=== PATIENT | female | born 1950 | race Caucasian/White ===

== ENCOUNTER 2019-03-03 12:46 | Inpatient (IN) | payer MEDICARE, SELFPAY ==
[2019-03-03] VITALS (11 sets, daily range): BP systolic 125–206; BP diastolic 59–82; PULSE 60–80; RESP 15–18; TEMP 36.5–37.4; O2SAT 96–100; BMI 31.0; BMI 30.4
--- NOTE | 2019-03-03 13:16 | CT_ITS ---
STUDY: CT BRAIN WITHOUT CONTRAST REASON FOR EXAM: Female, 69 years old. Dizziness, headache, nausea/vomiting today. Hx hypertension, diabetes.. RADIATION DOSAGE (If Supplied By Facility): CTDIvol = ( 44.99 ) mGy, DLP = ( 779.24 ) mGycm TECHNIQUE: Transaxial CT imaging of the brain was performed without administration of intravenous contrast material. Individualized dose optimization techniques were used for this CT. COMPARISON: No relevant priors. FINDINGS: Normal size ventricles and extra-axial spaces for the patient's age. Normal white matter tracts of the cerebral hemispheres. Normal basal ganglia and thalami. Normal brainstem. Normal cerebellum. There is no intracranial hemorrhage. There are no findings of an acute ischemic infarction. Normal visualized paranasal sinuses. CT/Brain/Head without Contrast IMPRESSION: Normal unenhanced CT scan of the brain. Electronically Signed: Alva Ramos MD at 14:00 EDT Tel , Service support ,
--- NOTE | 2019-03-03 13:16 | EKG12_ITS ---
Test Reason : DIZZINESS Blood Pressure : / mmHG Vent. Rate : 060 BPM Atrial Rate : 060 BPM P-R Int : 172 ms QRS Dur : 080 ms QT Int : 434 ms P-R-T Axes : 037 -12 105 degrees QTc Int : 434 ms Normal sinus rhythm Left ventricular hypertrophy with repolarization abnormality Abnormal ECG Confirmed by RODNEY IRVIN, HI ([id number]), restaurant expeditor DELORES ARELLANO ([id number]) on 03/04/2019 9:08:28 AM Referred By: MICHA/MELVIN Confirmed By:HI STEVENS MD
--- NOTE | 2019-03-03 13:18 | ED.VIS.GEN ---
History of Present Illness <Chioma Sagastume - Last Filed: 03/03/19 16:34> Informant: Patient Onset: Today Context: Sudden Onset Timing: Waxes and wanes Current Severity: Mild Maximum Severity: Moderate Worsened by: Movement of head Relieved by: Remaining still Associated Symptoms: Nausea and vomiting Narrative: Angelica is a 69-year-old female with chronic headaches over the past year since her . They seem to come when she is under increased stress. She was visiting her brother yesterday at [facility] who is on life support. She developed a chronic headache last evening. She woke up this morning with vertigo. Her symptoms are exacerbated by moving her head especially to the left. She does complain of increased sinus congestion and drainage lately. She denies fever chills or chest pain or shortness of breath. She denies paresthesia or weakness or neck stiffness. She does have a history of bilateral cerumen impactions and she saw learning support resource room teacher but he was unable to remove the wax and she was instructed to put peroxide in her ears which she did not follow-up with. She denies ear pain. Prior similar symptoms: No - Headache yes, vertigo no Recent Illness/Hospitalization: No <Teresa Tejada - Last Filed: 03/03/19 17:36> Chief Complaint: Dizziness Past Medical History <Chioma Sagastume - Last Filed: 03/03/19 16:34> Prior records reviewed: Yes Past Medical History: - - Hypertension, hyperlipidemia, diabetes, chronic arthritis, chronic headaches, allergic rhinitis and chronic sinusitis per patient exam Surgical History: hysterectomy Lives: Alone Smoking Status: Never smoker Alcohol: None Drugs: None <Teresa Tejada - Last Filed: 03/03/19 17:36> - Allergies and Home Meds Allergies/Adverse Reactions: Allergies furosemide [From Lasix] Allergy (Verified 03/03/19 12:47) Hives Sulfa (Sulfonamide Antibiotics) Allergy (Verified 03/03/19 12:47) Hives Review of Systems All systems negative except as indicated General: Denies: Chills, Fever Eyes: Denies: Visual changes - bilaterally, Blurred Vision - bilaterally ENT: Reports: - - Sinus congestionBilateral cerumen impactions. Denies: Bilateral ear pain, Sore throat Cardiovascular: Denies: Chest pain, Palpitations, Heart racing Respiratory: Denies: Dyspnea, Cough, Sputum Gastrointestinal: Reports: Nausea, Vomiting, - - With vertigo episodes. Denies: Abdominal pain Genitourinary: Denies: Dysuria, Hematuria, Frequency Musculoskeletal: Reports: Back pain - Chronic back and hip pain from arthritis. Denies: Myalgias, Arthralgias, Neck pain Skin: Denies: Rash Neurological: Reports: Headache. Denies: Weakness, Parasthesia <RubiodaniloTeresa - Last Filed: 03/03/19 17:36> Physical Exam Vital Signs/Narrative: Vital Signs Temp Pulse Resp BP Pulse Ox 03/03/19 16:20 61 18 125/79 H 03/03/19 15:11 63 15 137/75 H 97 03/03/19 13:00 64 18 153/73 H 100 03/03/19 12:48 99.4 F H 67 15 206/82 H 97 <Chioma Sagastume - Last Filed: 03/03/19 16:34> Vital Signs/Narrative: Vital Signs Temp Pulse Resp BP Pulse Ox 03/03/19 13:00 64 18 153/73 H 100 03/03/19 12:48 99.4 F H 67 15 206/82 H 97 Inital Vital Signs reviewed: Yes General: Well nourished, Well developed Head: Normocephalic, Atraumatic Eyes: Perrl, EOMI. Negative for: Pale conjunctiva ENT: Moist mucous membranes, No rhinorrhea, Nasal congestion, - - Bilateral cerumen impactions obscuring TMs. Negative for: Sinus tenderness Neck: Supple, Nontender, No lymphadenopathy Cardiovascular: Regular rate, Regular rhythm, No murmurs. Negative for: Tachycardia Respiratory: No distress, CTA bilaterally, Chest nontender Abdomen: Soft, Nontender, Nondistended Back: Nontender, Normal Inspection Extremities: Nontender, No edema Skin: Normal color, No rash Neurological: Alert, Oriented x3, Cranial nerves II-XII grossly intact, - - Moderate Hallpike maneuver at the bedside was positive for reproduction of symptoms when she turns her head to the left twice on exam Psychological: Normal Mood, Tearful <TerrellTeresa - Last Filed: 03/03/19 17:36> Diagnostic/Tx/Re-eval - Medical Decision Making I independently evaluated the patient. She presents with vertigo symptoms which started this morning. She states it is worse when she stands or turns her head. She also complains of headache, nausea, vomiting. She denies other complaints. CT head was unremarkable. When laying still patient states her symptoms are improved. When she tries to stand or walk she has significant vertigo. On reevaluation, she does not feel that she can go home. Discussed with the hospitalist for observation. <Chioma Sagastume - Last Filed: 03/03/19 16:34> CT head noncontrast showed no acute process per radiology - EKG Initial EKG Interpretation: Sinus Rhythm - Normal sinus rhythm Ventricular rate 60 OH interval 172 QRS duration 80 QT/QTc 434/434 No acute STEMI or ectopy - Medical Decision Making She was treated with IV fluids, meclizine and Zofran with improvement of her symptoms. Laboratory tests reveal mild dehydration. She states she was told 3 months ago that she was mildly dehydrated that she needs to drink more fluids. She will be prescribed meclizine and Zofran for home and was instructed to increase fluids. She plans to call her PCP tomorrow. She remained neurologically intact, hemodynamically stable and nontoxic in appearance. Plan was discharged home in stable condition. She had another episode of vertigo and was unable to sit up in the bed. It was decided that since she lives alone and she continues to have symptoms she should be observed overnight. She was given Valium for intractable vertigo and admitted. <Teresa Tejada - Last Filed: 03/03/19 17:36> ED Disposition <Chioma Sagastume - Last Filed: 03/03/19 16:34> <Teresa Tejada - Last Filed: 03/03/19 17:36> - Plan for ED Patient: Disposition: Home or Assisted Living
[2019-03-03 13:26] LABS: Basophil# 0.03 X10^3/uL; Basophil% 0.3 % (0-1); Eosinophils% 2.3 % (0-5); Hematocrit 39.6 % (37-47); Hemoglobin 13.3 g/dL (12.0-15.0); Lymphocyte % 11.5 % (19-41); Mean Corp Hgb Conc 33.6 g/dL (32-36); Mean Corpuscular Hgb 29.5 pg (27.0-32.0); Mean Corpuscular Volume 87.8 fL (81-99); Mean Platelet Vol. 9.6 fl (6.2-12.0); Monocyte# 0.46 X10^3/uL; Monocyte% 5.3 % (0-10); NRBC Flagged by Analyzer 0 % (0-5); Neutrophil # 6.95 X10^3/uL (2.7-7.7); Neutrophil % 80.3 % (47-70); Platelet Count 173 K/mm3 (150-450); RBC Distribution Width CV 13.2 % (11.6-14.6); RBC Distribution Width SD 42.5 fl (35.1-43.9); Red Blood Count 4.51 M/mm3 (4.2-5.4); White Blood Count 8.7 K/mm3 (4.4-11.0)
[2019-03-03] MEDS: 0.9% Normal Saline 1,000 ML 1000 ML IV (13:27)
[2019-03-03] MEDS: Ondansetron 4 MG/2 ML Vial IV (13:28)
[2019-03-03] MEDS: Acetaminophen 500 MG Tablet 1000 MG PO (13:30)
[2019-03-03] MEDS: Meclizine HCl 25 MG Tablet PO ×2 (13:30→19:53)
[2019-03-03 13:37] LABS: Anion Gap 6 (5-15); BUN 25 mg/dL (7-18); BUN/Creat Ratio 22.1 RATIO (10-20); Calcium,Total 9.4 mg/dL (8.5-10.1); Chloride 105 mmol/L (98-107); Creatinine, Serum 1.13 mg/dL (0.55-1.02); EST Glomerular Filtration Rate 51 mL/min (>60); Est Glom Filt Rate - Afr Amer 62 mL/min (>60); Estimated Creatinine Clearance 35.96 ml/min; Glucose 185 mg/dL (74-106); Potassium 3.8 mmol/L (3.5-5.1); Sodium Level 138 mmol/L (136-145)
[2019-03-03] MEDS: diazePAM 5 MG Tablet 2.5 MG PO (16:26)
--- NOTE | 2019-03-03 17:14 | HP.PCM_ITS ---
Problem List (1) Vertigo Status: Acute (2) Diabetes Status: Chronic Qualifiers: Diabetes mellitus type: type 2 (3) HTN (hypertension) Status: Chronic (4) Osteoarthritis Status: Chronic (5) Cerumen impaction Status: Chronic Qualifiers: Laterality: bilateral Qualified Code(s): H61.23 - Impacted cerumen, bilateral History of Present Illness Date of Admission: 03/03/19 Chief Complaint: vertigo The patient is a 69 year old F with pmhx of HTN, Dmt2, chronic BL cerumen impaction, osteoarthritis, who presents to the ER with c/o vertigo. She felt normal yesterday, but today woke up feeling dizzy. Laying in bed she had dizziness. Sitting up and attempting to walk made it worse. She had relief if she turned her head to the side. She became nauseous and vomited twice this AM. Since being in the ER her symptoms have somewhat improved and she has had no further vomiting. She had a negative CT of the brain. She still feels very dizzy lying in bed. She denies focal weakness, slurred speech, facial droop, or numbness tingling. She had a mild headache on the top of her head that has passed with tylenol. She is too dizzy to walk, lives by herself, and does not feel comfortable going home. She will be kept overnight for observation. Also of note, she was seen by Dr. Sergey Austin 4 months ago for chronic BL cerumen impaction. He was unable to remove them and told her to use daily peroxide to so ften the impactions. She did this, but then never followed up with Dr. Austin. The ER providers have noted that she remains impacted BL on exam. [] Past Medical History Past Medical History (Chronic Problems): Chronic Problems Diabetes (Chronic) HTN (hypertension) (Chronic) Osteoarthritis (Chronic) Cerumen impaction (Chronic) Allergies furosemide [From Lasix] Allergy (Verified 03/03/19 12:47) Hives Sulfa (Sulfonamide Antibiotics) Allergy (Verified 03/03/19 12:47) Hives Home Medications: Ambulatory Orders Medication Instructions Recorded Cholecalciferol (Vitamin D3) 1 tab PO QWEEK 03/03/19 [D3-50] Glimepiride 1 tab PO DAILY 03/03/19 Indapamide 1.25 mg PO DAILY 03/03/19 Meclizine HCl 12.5 mg PO TID PRN PRN 4 Days #12 03/03/19 tab Metoprolol Tartrate 50 mg PO BID 03/03/19 Naproxen 500 mg PO BID PRN 03/03/19 Ondansetron [Zofran Odt] 4 mg PO Q8H PRN PRN #6 tab 03/03/19 traMADol [Ultram (G)] 50 mg PO DAILY 03/03/19 Surgical History: hysterectomy - partial Psychiatric History: No pertinent psych hx SWIMMING PROFESSOR History: No pertinent SWIMMING PROFESSOR history Lives: Alone Smoking Status: Never smoker Alcohol: None Drugs: None Review of Systems Constitutional: Denies: Chills, Fever, Weight Change HEENT: Reports: Head Aches. Denies: Difficulty Hearing, Hard of Hearing, Sinus Congestion, Sinus Drainage, Visual Changes Cardiovascular: Denies: Chest Pain, Chest Tightness, Heaviness, Light Headedness, Palpitations, Syncope Respiratory: Denies: Cough, Shortness of Breath, Shortness of breath at rest, Shortness of breath upon exertion, Sputum production, Wheezing Gastrointestinal: Reports: Nausea, Vomiting. Denies: Abdominal Pain, Diarrhea Genitourinary: Denies: Dysuria, Retention, Urgency Musculoskeletal: Denies: Joint Pain, Joint Tenderness, Muscle pain Skin: Denies: Lesions, Rash, Wounds Neurological: Reports: Balance problems, Headaches. Denies: Blurred vision, Double vision, Change in Speech, Slurred speech, Confusion, Difficulty swallowing, Focal weakness, Numbness, Tingling Psychiatric: Denies: Anxiety, Depression, Homicidal Ideations, Suicidal Ideations Hematologic/ Lymphatic: Denies: Easy Bruising, Easy Bleeding VTE Information - Inpt Only VTE Present on Admission: No VTE Mechan Device Prophylaxis: None VTE Pharm Prophylaxis ordered?: Yes Patient Problems: Active and Suspected Problems Vertigo (Acute) - Physical Exam General: Alert, Oriented x3, Cooperative HEENT: Atraumatic, PERRLA, EOMI, Normocephalic Neck: Supple, No JVD, Negative Carotid Bruits Lungs: Clear to auscultation, Normal air movement Cardiovascular: Regular rate, No murmurs Abdomen: Bowel Sounds Present, Soft, Non Tender Extremities: No edema, Capillary Refill Less than 3 Seconds Skin: No rashes, No breakdown Musculoskeletal: No Tenderness to Palpation of Joints or Extremities Neurological: Cranial nerves II-XII grossly intact Psych/Mental Status: Normal Affect, Appropriate Vital Signs Temp Pulse Resp BP Pulse Ox 99.4 F H 75 18 158/67 H 97 03/03/19 12:48 03/03/19 17:09 03/03/19 17:09 03/03/19 17:09 03/03/19 17:09 Oxygen Delivery Method Room Air Weight: 164 lb 7.437 oz Body Mass Index (BMI) 31.0 Intake and Output for Last 24 Hours 03/01/19 03/02/19 03/03/19 23:59 23:59 23:59 Intake Total 1000 / 1000 Balance 1000 / 1000 Laboratory Tests Past 24 Hrs 03/03/19 03/03/19 12:55 12:55 WBC 8.7 RBC 4.51 Hgb 13.3 Hct 39.6 MCV 87.8 MCH 29.5 MCHC 33.6 RDW Std Deviation 42.5 RDW Coeff of Rojelio 13.2 Plt Count 173 MPV 9.6 Immature Gran % (Auto) 0.300 Neut % (Auto) 80.3 H Lymph % (Auto) 11.5 L Coal % (Auto) 5.3 Eos % (Auto) 2.3 Baso % (Auto) 0.3 Absolute Neuts (auto) 7.0 Absolute Lymphs (auto) 1.00 Nucleated RBC % 0 Sodium 138 Potassium 3.8 Chloride 105 Carbon Dioxide 27.0 Anion Gap 6 BUN 25 H Creatinine 1.13 H Estim Creat Clear Calc 35.96 Est GFR (MDRD) Af Amer 62 Est GFR (MDRD) Non-Af 51 L BUN/Creatinine Ratio 22.1 H Glucose 185 H Calcium 9.4 Assessment/Plan All Active Problems Vertigo (Acute) 1. Vertigo - peripheral. Better with turning head to the left. Improved in the ER however she is still unable to walk and does not feel safe at home. CT brain negative. She will be provided with meclizine, IV fluids, and antiemetics and kept overnight for observation. PTOT evals in the AM for vestibular thearpy 2. Cerumen impaction - possibly contributing to above. Consult her ENT Dr. Sergey John. If she feels better tomorrow we will attempt to get her follow up in the office. She has been impacted about 4 months. 3. Dmt2 with hyperglycemia - add SSI. 4. HTN - elevated initially now improved. Continue home meds and monitor. Hold diuretic (likely dehydrated 2/2 N/V). 5. Osteoarthritis - hold NSAID. BUN/Cr somewhat elevated likely dehydrated 2/2 nausea vomiting. DVT ppx: lovenox DC planning: Reassess vertigo in AM. This patient was seen by Alberto Linn PA-C under the supervision of Dr. Isidro.
[2019-03-03] MEDS: 0.9% Normal Saline 1,000 ML 125 ML IV (19:54)
--- NOTE | 2019-03-03 20:45 | PCM.PN.BLA ---
Progress Note Asked to see the patient at the request of Dr. Isidro for vertigo and cerumen impaction 69 yo white female woke up this morning with spinning vertigo. She was laying flat at the time. She turned to her left and this made it worse. She got out of bed, lost bladder control and eventually called the squad. She had a normal CT head here. She denies hearing loss or ringing at any time during the vertiginous episode. She denies vertigo right now. This has never happened before. Past Medical History Past Medical History (Chronic Problems): Chronic Problems Diabetes (Chronic) HTN (hypertension) (Chronic) Osteoarthritis (Chronic) Cerumen impaction (Chronic) Allergies furosemide [From Lasix] Allergy (Verified 03/03/19 12:47) Hives Sulfa (Sulfonamide Antibiotics) Allergy (Verified 03/03/19 12:47) Hives Home Medications: Ambulatory Orders Medication Instructions Recorded Cholecalciferol (Vitamin D3) 1 tab PO QWEEK 03/03/19 [D3-50] Glimepiride 1 tab PO DAILY 03/03/19 Indapamide 1.25 mg PO DAILY 03/03/19 Meclizine HCl 12.5 mg PO TID PRN PRN 4 Days #12 03/03/19 tab Metoprolol Tartrate 50 mg PO BID 03/03/19 Naproxen 500 mg PO BID PRN 03/03/19 Ondansetron [Zofran Odt] 4 mg PO Q8H PRN PRN #6 tab 03/03/19 traMADol [Ultram (G)] 50 mg PO DAILY 03/03/19 Surgical History: hysterectomy - partial Psychiatric History: No pertinent psych hx EXERCISE PHYSIOLOGIST CERTIFIED History: No pertinent EXERCISE PHYSIOLOGIST CERTIFIED history Lives: Alone Smoking Status: Never smoker Alcohol: None Drugs: None Review of Systems Constitutional: Denies: Chills, Fever, Weight Change HEENT: Reports: Head Aches. Denies: Difficulty Hearing, Hard of Hearing, Sinus Congestion, Sinus Drainage, Visual Changes Cardiovascular: Denies: Chest Pain, Chest Tightness, Heaviness, Light Headedness, Palpitations, Syncope Respiratory: Denies: Cough, Shortness of Breath, Shortness of breath at rest, Shortness of breath upon exertion, Sputum production, Wheezing Gastrointestinal: Reports: Nausea, Vomiting. Denies: Abdominal Pain, Diarrhea Genitourinary: Denies: Dysuria, Retention, Urgency Musculoskeletal: Denies: Joint Pain, Joint Tenderness, Muscle pain Skin: Denies: Lesions, Rash, Wounds Neurological: Reports: Balance problems, Headaches. Denies: Blurred vision, Double vision, Change in Speech, Slurred speech, Confusion, Difficulty swallowing, Focal weakness, Numbness, Tingling Psychiatric: Denies: Anxiety, Depression, Homicidal Ideations, Suicidal Ideations Hematologic/ Lymphatic: Denies: Easy Bruising, Easy Bleeding PE: awake alert NAD ears- bilateral cerumen impaction nose- no bleeding, rhinorrhea m/op -dry mucosa. no masses, lesions neck supple no adenopathy No gaze or spontaneous nystagmus Smooth pursuit is normal [place] Hallpike + for rotary, fatigable nystagmus in the left ear dependent position. She was then placed in the Abdelrahman maneuver A:1. Left BPPV 2. Bilateral cerumen impaction P: Keep the head of bed elevated 30-45 degrees for one week. Use debrox for 5 days prior to an office visit where the cerumen will be removed.
[2019-03-03] MEDS: 0.9% NaCl Peripheral Flush Adult/Peds IV (21:22)
[2019-03-03] MEDS: Metoprolol Tartrate 50 MG Tablet PO (21:44)
[2019-03-03] MEDS: Famotidine 20 MG Tablet PO (21:44)
[2019-03-03] MEDS: Insulin Lispro 100 UNIT/ML INSULN.PEN SC (21:48)
[2019-03-03 23:11] LABS: Bedside Glucose 176 mg/dL (70-110)
[2019-03-04] VITALS (14 sets, daily range): BP systolic 145–164; BP diastolic 69–87; PULSE 59–94; RESP 16–18; TEMP 36.5–36.7; O2SAT 92–100
[2019-03-04] MEDS: Meclizine HCl 25 MG Tablet PO ×4 (02:51→20:59)
[2019-03-04] MEDS: 0.9% Normal Saline 1,000 ML 125 ML IV ×3 (02:53→21:01)
[2019-03-04 05:51] LABS: Absolute Lymphocyte Count 1.42 X10^3/uL (0.83-4.51); Absolute Neutrophil Count 3.3 X10^3/uL (2.0-7.7); Basophil# 0.03 X10^3/uL; Basophil% 0.6 % (0-1); Eosinophils% 3.7 % (0-5); Hematocrit 34.8 % (37-47); Hemoglobin 11.6 g/dL (12.0-15.0); Lymphocyte # 1.42 X10^3/ul (4.0); Lymphocyte % 26.1 % (19-41); Mean Corp Hgb Conc 33.3 g/dL (32-36); Mean Corpuscular Hgb 29.6 pg (27.0-32.0); Mean Corpuscular Volume 88.8 fL (81-99); Mean Platelet Vol. 9.7 fl (6.2-12.0); Monocyte# 0.53 X10^3/uL; Monocyte% 9.7 % (0-10); NRBC Flagged by Analyzer 0 % (0-5); Neutrophil # 3.26 X10^3/uL (2.7-7.7); Neutrophil % 59.7 % (47-70); Platelet Count 165 K/mm3 (150-450); RBC Distribution Width CV 13.3 % (11.6-14.6); RBC Distribution Width SD 43.3 fl (35.1-43.9); Red Blood Count 3.92 M/mm3 (4.2-5.4); White Blood Count 5.5 K/mm3 (4.4-11.0)
[2019-03-04 06:02] LABS: Anion Gap 6 (5-15); BUN 21 mg/dL (7-18); Calcium,Total 8.7 mg/dL (8.5-10.1); Chloride 113 mmol/L (98-107); Creatinine, Serum 0.96 mg/dL (0.55-1.02); EST Glomerular Filtration Rate 62 mL/min (>60); Est Glom Filt Rate - Afr Amer 75 mL/min (>60); Estimated Creatinine Clearance 42.32 ml/min; Glucose 88 mg/dL (74-106); Potassium 3.7 mmol/L (3.5-5.1); Sodium Level 144 mmol/L (136-145)
[2019-03-04 07:41] LABS: Bedside Glucose 74 mg/dL (70-110)
[2019-03-04] MEDS: Indapamide 2.5 MG Tablet 1.25 MG PO (08:33)
[2019-03-04] MEDS: Famotidine 20 MG Tablet PO ×2 (10:25→21:06)
[2019-03-04] MEDS: Metoprolol Tartrate 50 MG Tablet PO ×2 (10:25→21:06)
[2019-03-04] MEDS: Enoxaparin 30 MG/0.3 ML Syringe SC (10:27)
[2019-03-04] MEDS: traMADol 50 MG Tablet PO (10:30)
--- NOTE | 2019-03-04 11:26 | PN_ITS ---
Patient Problems: Active and Suspected Problems Vertigo (Acute) Subjective: Patient is a 69-year-old lady presented with acute vertigo worsening with position. Patient also had difficulty ambulating admitted to regular nursing floor with consultation placed to ENT. Seen by Dr. Sergey John who felt patient had BPPV with chronic cerumen impaction Objective: GENERAL: cooperative HEENT: Atraumatic; EYES; Anicteric, Normal Conjunctiva NECK; supple, normal thyroid, RESPIRATORY: Diminished to auscultation CARDIOVASCULAR: Regular S1 S2, GI: soft, non-tender, normoactive bowel sounds, : No Renal angle tenderness; EXTREMITIES: No edema, no clubbing, MUSCULOSKELETAL: No Joint Tenderness; NEURO: Awake; no lateralizing signs. SKIN: No Rash PSYCH; Normal affect Vitals/I&O's: Vital Signs Temp Pulse Resp BP Pulse Ox 97.8 F 70 16 148/70 H 92 03/04/19 08:20 03/04/19 10:25 03/04/19 08:20 03/04/19 10:25 03/04/19 08:20 Oxygen Delivery Method Room Air Weight: 73 kg Body Mass Index (BMI) 30.4 Intake and Output for Last 24 Hours 03/02/19 03/03/19 03/04/19 23:59 23:59 23:59 Intake Total 1300 / 1300 2051.2051. Output Total 700 / 700 800 / 800 Balance 600 / 600 1252.09 / 1252.09 Laboratory Results 03/03/19 12:55: WBC 8.7, RBC 4.51, Hgb 13.3, Hct 39.6, MCV 87.8, MCH 29.5, MCHC 33.6, RDW Std Deviation 42.5, RDW Coeff of Rojelio 13.2, Plt Count 173, MPV 9.6, Immature Gran % (Auto) 0.300, Neut % (Auto) 80.3 H, Lymph % (Auto) 11.5 L, [place] % (Auto) 5.3, Eos % (Auto) 2.3, Baso % (Auto) 0.3, Absolute Neuts (auto) 7.0, Absolute Lymphs (auto) 1.00, Nucleated RBC % 0 03/03/19 12:55: Sodium 138, Potassium 3.8, Chloride 105, Carbon Dioxide 27.0, Anion Gap 6, BUN 25 H, Creatinine 1.13 H, Estim Creat Clear Calc 35.96, Est GFR (MDRD) Af Amer 62, Est GFR (MDRD) Non-Af 51 L, BUN/Creatinine Ratio 22.1 H, Glucose 185 H, Calcium 9.4 03/03/19 21:42: POC Glucose 176 H 03/04/19 05:18: WBC 5.5, RBC 3.92 L, Hgb 11.6 L, Hct 34.8 L, MCV 88.8, MCH 29.6, MCHC 33.3, RDW Std Deviation 43.3, RDW Coeff of Rojelio 13.3, Plt Count 165, MPV 9.7, Immature Gran % (Auto) 0.200, Neut % (Auto) 59.7, Lymph % (Auto) 26.1, [place] % (Auto) 9.7, Eos % (Auto) 3.7, Baso % (Auto) 0.6, Absolute Neuts (auto) 3.3, Absolute Lymphs (auto) 1.42, Nucleated RBC % 0 03/04/19 05:18: Sodium 144, Potassium 3.7, Chloride 113 H, Carbon Dioxide 25.0, Anion Gap 6, BUN 21 H, Creatinine 0.96, Estim Creat Clear Calc 42.32, Est GFR (MDRD) Af Amer 75, Est GFR (MDRD) Non-Af 62, BUN/Creatinine Ratio 22.0 H, Glucose 88, Calcium 8.7 03/04/19 06:19: POC Glucose 74 Current Medications Acetaminophen (Tylenol) 650 mg PO Q6H PRN PRN PRN Reason: Non-cardiac pain (mod-severe) Al Hydroxide/Mg Hydroxide (Mylanta Ii) 15 - 30 ml PO Q4H PRN PRN PRN Reason: INDIGESTION Albuterol Sulfate (Ventolin Aerosols) 2.5 mg INHALATION Q2H PRN PRN PRN Reason: dyspnea, wheezing Dextrose (D50w Syringe) 0 gm IV X1 PRN; Protocol PRN Reason: Hypoglycemia Enoxaparin Sodium (Lovenox) 30 mg SC DAILY@1000 [facility] Last Admin: 03/04/19 10:27 Dose: 30 mg Documented by: Famotidine (Pepcid) 20 mg PO BID [facility] Last Admin: 03/04/19 10:25 Dose: 20 mg Documented by: Glucagon () 1 mg IM .X1 PRN PRN Reason: Hypoglycemia Hydralazine HCl (Apresoline Iv) 10 mg IV Q4H PRN PRN PRN Reason: SBP > 160 Sodium Chloride () 1,000 mls @ 125 mls/hr IV .Q8H [facility] Last Admin: 03/04/19 10:43 Dose: 125 mls/hr Documented by: Indapamide (Lozol) 1.25 mg PO DAILYCM [facility] Last Admin: 03/04/19 08:33 Dose: 1.25 mg Documented by: Insulin Human Lispro (Humalog Kwikpen (Bkc)) 0 unit SC ACHS [facility]; Protocol Last Admin: 03/04/19 06:22 Dose: Not Given Documented by: Magnesium Hydroxide (Milk Of Magnesia) 30 ml PO DAILY PRN PRN Reason: Constipation Meclizine HCl (Antivert) 25 mg PO Q6H [facility] Last Admin: 03/04/19 08:28 Dose: 25 mg Documented by: Melatonin (Melatonin) 3 mg PO QHS PRN PRN PRN Reason: INSOMNIA Metoprolol Tartrate (Lopressor (Beta Tenisha)) 50 mg PO BID [facility] Last Admin: 03/04/19 10:25 Dose: 50 mg Documented by: Nutritional Formula (Lactose Free) (Glucerna Shake) 120 ml PO TIDCM [facility] Last Admin: 03/04/19 08:25 Dose: Not Given Documented by: Ondansetron HCl (Zofran) 4 mg IV Q8H PRN PRN PRN Reason: NAUSEA/VOMITING Sodium Chloride () 10 - 40 ml IV UD PRN PRN Reason: SALINE FLUSH Last Admin: 03/03/19 21:22 Dose: 10 ml Documented by: Tramadol HCl (Ultram) 50 mg PO DAILY [facility] Last Admin: 03/04/19 10:30 Dose: 50 mg Documented by: Medical Necessity - Tobacco Use Smoking Status: Never smoker Assessment/Plan All Active Problems Vertigo (Acute) Patient is a 69-year-old lady presented with acute vertigo worsening with position. Patient also had difficulty ambulating admitted to regular nursing floor with consultation placed to ENT. Seen by Dr. Sergey John who felt patient had BPPV with chronic cerumen impaction 1. Acute vertigo suspected to be secondary to BPPV. ~ Patient is been seen in consultation by ENT Dr. Sergey John's note reviewed. Also requested for PT OT. With the patient still remaining significantly vertiginous MRI of the brain was ordered to rule out posterior circulation CVA 2. Chronic bilateral cerumen impaction patient prescribed Cerebrox for patient to undergo outpatient disimpaction 3. Diabetes mellitus type 2. Patient oral agent placed on hold, placed on diabetic diet and subsequently placed on Accu-Cheks before meals and at bedtime with sliding scale coverage 4. Hypertension blood pressure controlled continue home medications 5. Obesity with BMI of 30.4 weight loss advised 6. Generalized osteoarthritis pain medications as needed 7. DVT prophylaxis enoxaparin Active Medications Acetaminophen (Tylenol) 650 mg PO Q6H PRN PRN PRN Reason: Non-cardiac pain (mod-severe) Al Hydroxide/Mg Hydroxide (Mylanta Ii) 15 - 30 ml PO Q4H PRN PRN PRN Reason: INDIGESTION Albuterol Sulfate (Ventolin Aerosols) 2.5 mg INHALATION Q2H PRN PRN PRN Reason: dyspnea, wheezing Dextrose (D50w Syringe) 0 gm IV X1 PRN; Protocol PRN Reason: Hypoglycemia Enoxaparin Sodium (Lovenox) 30 mg SC DAILY@1000 [facility] Last Admin: 03/04/19 10:27 Dose: 30 mg Documented by: Famotidine (Pepcid) 20 mg PO BID [facility] Last Admin: 03/04/19 10:25 Dose: 20 mg Documented by: Glucagon () 1 mg IM .X1 PRN PRN Reason: Hypoglycemia Hydralazine HCl (Apresoline Iv) 10 mg IV Q4H PRN PRN PRN Reason: SBP > 160 Sodium Chloride () 1,000 mls @ 125 mls/hr IV .Q8H [facility] Last Admin: 03/04/19 10:43 Dose: 125 mls/hr Documented by: Indapamide (Lozol) 1.25 mg PO DAILYCM [facility] Last Admin: 03/04/19 08:33 Dose: 1.25 mg Documented by: Insulin Human Lispro (Humalog Kwikpen (Bkc)) 0 unit SC ACHS [facility]; Protocol Last Admin: 03/04/19 06:22 Dose: Not Given Documented by: Magnesium Hydroxide (Milk Of Magnesia) 30 ml PO DAILY PRN PRN Reason: Constipation Meclizine HCl (Antivert) 25 mg PO Q6H [facility] Last Admin: 03/04/19 08:28 Dose: 25 mg Documented by: Melatonin (Melatonin) 3 mg PO QHS PRN PRN PRN Reason: INSOMNIA Metoprolol Tartrate (Lopressor (Beta Tenisha)) 50 mg PO BID [facility] Last Admin: 03/04/19 10:25 Dose: 50 mg Documented by: Nutritional Formula (Lactose Free) (Glucerna Shake) 120 ml PO TIDCM [facility] Last Admin: 03/04/19 08:25 Dose: Not Given Documented by: Ondansetron HCl (Zofran) 4 mg IV Q8H PRN PRN PRN Reason: NAUSEA/VOMITING Sodium Chloride () 10 - 40 ml IV UD PRN PRN Reason: SALINE FLUSH Last Admin: 03/03/19 21:22 Dose: 10 ml Documented by: Tramadol HCl (Ultram) 50 mg PO DAILY [facility] Last Admin: 03/04/19 10:30 Dose: 50 mg Documented by: Clinical Impression(s) from Imaging Studies Brain CT 03/03/19 13:16 IMPRESSION: Normal unenhanced CT scan of the brain. Electronically Signed: Alva Ramos MD at 14:00 EDT Tel , Service support , Code Visit OBSV E&M: 16678 Subsequent observation care L3
--- NOTE | 2019-03-04 11:34 | MRI_ITS ---
STUDY: MRI BRAIN WITH AND WITHOUT CONTRAST REASON FOR EXAM: Female, 69 years old. Vertigo TECHNIQUE: Standardized multiplanar fat and water weighted pulse sequences were obtained. IV Dotarem 14 was administered for the contrast portion of the examination. COMPARISON: [address] head FINDINGS: Normal size of the ventricles and extra-axial spaces for the patient's age. Normal white matter tracts of the supratentorial brain. Normal bilateral basal ganglia. Normal thalami. There is no extra-axial fluid accumulation. There are minor white matter age related changes. Normal flow voids within the major intracranial circulation suggesting patency by spin echo criteria. Normal venous enhancement. There is no enhancing intra-axial or extra-axial abnormality. Normal sella turcica, pituitary gland, infundibular stalk, optic chiasm and hypothalamus. Normal tectal plate and pineal gland. Normal midbrain, gaby and medulla. Normal cerebellum. Normal basal cisterns. Normal bilateral temporal bones. Normal bilateral internal auditory canals. No demonstrated orbital abnormality, within the constraints of a routine brain study. Normal visualized paranasal sinuses. Normal calvarium and skull base. Normal visualized soft tissue structures. Normal visualized upper cervical spine. MRI/Brain W/WO Contrast IMPRESSION: Normal unenhanced and enhanced MRI of the brain. Electronically Signed: Melanie Hollis, at 15:55 EDT Tel , Service support ,
[2019-03-04] MEDS: Glucerna Shake 120 ML LIQUID PO ×2 (13:27→16:24)
[2019-03-04 13:41] LABS: Bedside Glucose 101 mg/dL (70-110)
[2019-03-04] MEDS: 0.9% NaCl Peripheral Flush Adult/Peds IV ×2 (14:04→16:34)
[2019-03-04] MEDS: LORazepam 2 MG/ML Syringe 1 MG IV (14:05)
--- NOTE | 2019-03-04 14:05 | CASEMGMT ---
RN CM Assessment Introduced role of RN CM to patient.? Patient is alert, oriented and able?to participate in RN CM Assessment. ?Care providers, pharmacy, and demographics verified. Presentation: H/o Chronic SHER x1 yr after . SHER's w/increased stress. C/o SHER after visiting brother at [facility] who is on life support. +Vertigo. Admit Dx: Vertigo Re-Admit: No Barriers/Issues: Patient has friends that work, really has no other support to assist with transportation needs or other care needs. States her was a Decan and last April 2018. has attended support group off [address] and it is going to start up again on Monday and states they helped her in the past. Sometimes attends her husbands muslim or a different Baptism Islam. States this episode she called her neighbor to assist d/t the dizziness but does not like to ask him for help d/t his passing 1.5years ago and he was the one that took care of his so she does not want her needs to bring back memories for him. [facility] has resources on transportation services through [employer] and this CM discussed [facility] Transport, [place], and inquired about applying to [facility] (patient states that she does not qualify). 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 Denies medication coverage but states that her maintenance medications do not cost very much. has Medication coupon cards at home if ever needed and this CM also discussed going on [employer] web site for coupons if ever needed. Denies issues with Medications at this time and states it is cheaper for her paying out of pocket than getting MCR D. PCP: Miladis Foote Specialists: ENT- Sergey Austin, has an up coming appt with Ophth that she has not seen yet Dr Devlin for her Cataracts. Preferred Pharmacy: [facility] Insurance: [facility] A&B Rx Benefit:?No ?LNOK: Brother Randell Chao- lives in [place] LW/HPOA: Yes both, aware not on file with [facility], HPOA- Brother Mateo Chao whom lives in [place] but is currently on life support at [facility]. Living Arrangements:? Lives alone in a SS home with 3 steps to enter from the front and 2 steps to enter from the garage. ADL?s: Independent with ambulation and ADLs Transportation: Patient drives, has transportation resources and denies additional resources. Plans to take Taxi upon DC DME: States has a walker that was her husbands that she can use if needed. Denies any other DME. HHC: None SNF: None Goal: Home and states that PT discussed Therapy for her Vertigo and would be Outpatient with Dr Austin. Denies any other needs, questions, issues or concerns with DC planning at this time. Aware CM remains available for any emerging needs. DC PLAN: Home with no additional needs identified at this time. Donovan Hu RNCM
--- NOTE | 2019-03-04 15:51 | CHAPLAIN ---
Type of Pastoral Visit _x__ Initial Visit ___ Follow-up Visit ___ On-call Visit ___ General Patient Visit ___ Spiritual Assessment ___ Family Conference ___ Bereavement ___ Rapid Response ___ Code Blue ___ Other (describe below) Pastoral Care Referral From _x__ Patient ___ Family ___ Nurse ___ Physician ___ Probation Manager ___ Radiotelegraphist ___ Other (describe below) Sacrament/Intervention _x__ Active listening ___ Anointing ___ Adventism ___ Bereavement ___ Communion _x__ Brooke exploration ___ _x__ Life review _x__ Prayer ___ Reconciliation ___ Sacrament of Sick _x__ Supportive presence ___ Wedding ___ Other (describe below) Pastoral Comments patient is very talkative and describes her anxiety about having an MRI to be done soon; this post exchange manager listens and offers supportive presence until RN comes to inform that MRI team is ready for pt;
[2019-03-04 17:10] LABS: Bedside Glucose 62 mg/dL (70-110)
[2019-03-04 17:10] LABS: Bedside Glucose 103 mg/dL (70-110)
[2019-03-04] MEDS: Insulin Lispro 100 UNIT/ML INSULN.PEN SC (21:07)
[2019-03-04 22:51] LABS: Bedside Glucose 216 mg/dL (70-110)
[2019-03-05] VITALS (18 sets, daily range): BP systolic 157–220; BP diastolic 67–105; PULSE 67–77; RESP 16–18; TEMP 36.4–37.1; O2SAT 91–96
[2019-03-05] MEDS: Meclizine HCl 25 MG Tablet PO ×4 (02:32→20:54)
[2019-03-05] MEDS: 0.9% Normal Saline 1,000 ML 125 ML IV ×3 (05:00→20:54)
[2019-03-05 06:55] LABS: Bedside Glucose 86 mg/dL (70-110)
--- NOTE | 2019-03-05 07:24 | PN_ITS ---
Patient Problems: Active and Suspected Problems Vertigo (Acute) Subjective: CC follow-up of vertigo Patient seen still complains of inability to ambulate. She is tearful this a.m. Consult was placed to neurology. Also did discuss with patient about possibility of being discharged to a custodial facility versus inpatient rehab to continue with her recuperation. Objective: GENERAL: cooperative HEENT: Atraumatic; EYES; Anicteric, Normal Conjunctiva NECK; supple, normal thyroid, RESPIRATORY: Diminished to auscultation CARDIOVASCULAR: Regular S1 S2, GI: soft, non-tender, normoactive bowel sounds, : No Renal angle tenderness; EXTREMITIES: No edema, no clubbing, MUSCULOSKELETAL: No Joint Tenderness; NEURO: Awake; no lateralizing signs. SKIN: No Rash PSYCH; Normal affect Vitals/I&O's: Vital Signs Temp Pulse Resp BP Pulse Ox 97.5 F L 69 16 157/86 H 96 03/05/19 02:33 03/05/19 04:42 03/05/19 02:33 03/05/19 02:33 03/05/19 02:33 Oxygen Delivery Method Room Air Weight: 73 kg Body Mass Index (BMI) 30.4 Intake and Output for Last 24 Hours 03/03/19 03/04/19 03/05/19 23:59 23:59 23:59 Intake Total 1300 / 1300 3909.17 / 3909.17 997.92 / 997.92 Output Total 700 / 700 1700 / 1700 2700 / 2700 Balance 600 / 600 2209.17 / 2209.17 -1702.08 / -1702.08 Laboratory Results 03/04/19 06:19: POC Glucose 74 03/04/19 13:30: POC Glucose 101 03/04/19 16:27: POC Glucose 62 L 03/04/19 17:06: POC Glucose 103 03/04/19 21:05: POC Glucose 216 H 03/05/19 06:44: POC Glucose 86 Current Medications Acetaminophen (Tylenol) 650 mg PO Q6H PRN PRN PRN Reason: Non-cardiac pain (mod-severe) Al Hydroxide/Mg Hydroxide (Mylanta Ii) 15 - 30 ml PO Q4H PRN PRN PRN Reason: INDIGESTION Albuterol Sulfate (Ventolin Aerosols) 2.5 mg INHALATION Q2H PRN PRN PRN Reason: dyspnea, wheezing Dextrose (D50w Syringe) 0 gm IV X1 PRN; Protocol PRN Reason: Hypoglycemia Enoxaparin Sodium (Lovenox) 30 mg SC DAILY@1000 [facility] Last Admin: 03/04/19 10:27 Dose: 30 mg Documented by: Famotidine (Pepcid) 20 mg PO BID [facility] Last Admin: 03/04/19 21:06 Dose: 20 mg Documented by: Glucagon () 1 mg IM .X1 PRN PRN Reason: Hypoglycemia Hydralazine HCl (Apresoline Iv) 10 mg IV Q4H PRN PRN PRN Reason: SBP > 160 Sodium Chloride () 1,000 mls @ 125 mls/hr IV .Q8H [facility] Last Admin: 03/05/19 05:00 Dose: 125 mls/hr Documented by: Indapamide (Lozol) 1.25 mg PO DAILYCM [facility] Last Admin: 03/04/19 08:33 Dose: 1.25 mg Documented by: Insulin Human Lispro (Humalog Kwelvinpen (Bkc)) 0 unit SC ACHS [facility]; Protocol Last Admin: 03/05/19 06:47 Dose: Not Given Documented by: Magnesium Hydroxide (Milk Of Magnesia) 30 ml PO DAILY PRN PRN Reason: Constipation Meclizine HCl (Antivert) 25 mg PO Q6H [facility] Last Admin: 03/05/19 02:32 Dose: 25 mg Documented by: Melatonin (Melatonin) 3 mg PO QHS PRN PRN PRN Reason: INSOMNIA Metoprolol Tartrate (Lopressor (Beta Tenisha)) 50 mg PO BID [facility] Last Admin: 03/04/19 21:06 Dose: 50 mg Documented by: Nutritional Formula (Lactose Free) (Glucerna Shake) 120 ml PO TIDCM [facility] Last Admin: 03/04/19 16:24 Dose: 120 ml Documented by: Ondansetron HCl (Zofran) 4 mg IV Q8H PRN PRN PRN Reason: NAUSEA/VOMITING Sodium Chloride () 10 - 40 ml IV UD PRN PRN Reason: SALINE FLUSH Last Admin: 03/04/19 16:34 Dose: 10 ml Documented by: Tramadol HCl (Ultram) 50 mg PO DAILY [facility] Last Admin: 03/04/19 10:30 Dose: 50 mg Documented by: Medical Necessity - Tobacco Use Smoking Status: Never smoker Assessment/Plan All Active Problems Vertigo (Acute) Patient is a 69-year-old lady presented with acute vertigo worsening with position. Patient also had difficulty ambulating admitted to regular nursing floor with consultation placed to ENT. Seen by Dr. Sergey John who felt patient had BPPV with chronic cerumen impaction 1. Acute vertigo suspected to be secondary to BPPV. ~ Patient is been seen in consultation by ENT Dr. Sergey John's note reviewed. Also requested for PT OT. With the patient still remaining significantly vertiginous MRI of the brain was ordered to rule out posterior circulation CVA ?03/05/2019: Patient still remains significantly symptomatic. Discussed with patient about being discharged to an inpatient rehab facility or custodial facility for rehab. Consultation was also placed to neurology MRI obtained the day prior was unremarkable 2. Chronic bilateral cerumen impaction patient prescribed Debrox for patient to undergo outpatient disimpaction 3. Diabetes mellitus type 2. Patient oral agent placed on hold, placed on diabetic diet and subsequently placed on Accu-Cheks before meals and at bedtime with sliding scale coverage 4. Hypertension blood pressure controlled continue home medications 5. Obesity with BMI of 30.4 weight loss advised 6. Generalized osteoarthritis pain medications as needed 7. DVT prophylaxis enoxaparin Code Visit Inpatient E&M: 53118 Subs Hosp L2
[2019-03-05] MEDS: Enoxaparin 30 MG/0.3 ML Syringe SC (08:43)
[2019-03-05] MEDS: Metoprolol Tartrate 50 MG Tablet PO ×2 (08:47→21:00)
[2019-03-05] MEDS: Glucerna Shake 120 ML LIQUID PO ×2 (08:47→12:41)
[2019-03-05] MEDS: Indapamide 2.5 MG Tablet 1.25 MG PO (08:47)
[2019-03-05] MEDS: Famotidine 20 MG Tablet PO ×2 (08:48→21:00)
[2019-03-05] MEDS: traMADol 50 MG Tablet PO (08:51)
--- NOTE | 2019-03-05 11:15 | CASEMGMT ---
Addendum entered by Alexandria Holland 03/05/19 15:00: RENALDO spoke with Jing with [facility] who states [facility] is able to accept pt but Dr. Gifford would like the additional tests that he ordered to be completed before pt discharges to [facility]. RENALDO met with pt and introduced self and role at [facility]. Pt is alert and orientated x3. Pt states I have a lot going on and I just lost my 10 months ago. SW offered support to pt. Per previous notes, pt has been to grief support groups and does plan to resume groups at discharge. SW informed pt that physician feels pt would benefit from [facility] at [facility] and that [facility] is very short term. SW informed pt that [facility] is able to accept pt if pt is agreeable. Pt states 'I have people telling me I need to do these tests and I just have a lot going on. SW again offered support to pt. SW informed pt that she can think about [facility] tonight and then this worker will speak with her tomorrow. Pt states understanding. Plan: Likely [facility] if pt is agreeable Original Note: Social Work Note Physician asked about pt going to [facility]. RENALDO informed physician that pt has to have a qualifying diagnosis for [facility]. RENALDO placed a call to Jing with [facility] and provided referral. SW waiting for call back. RENALDO received message from Jing stating she will have to review pt's chart once she arrives at [facility] to determine if pt is [facility] appropriate. RENALDO waiting to hear from Jing. Plan: TBD. Alexandria Holland NUTRITIONAL HEALTH COACH, ARTIFICIAL LIMB FITTER
[2019-03-05 11:35] LABS: Bedside Glucose 127 mg/dL (70-110)
[2019-03-05] MEDS: Carbamide Peroxide 15 ML Bottle 5 DRP OTIC (12:42)
--- NOTE | 2019-03-05 14:10 | CT_ITS ---
STUDY: CTA HEAD AND NECK WITH CONTRAST REASON FOR EXAM: Female, 69 years old. Dizziness. RADIATION DOSAGE (If Supplied By Facility): CTDIvol = ( 29.34 ) mGy, DLP = ( 1450.21 ) mGycm TECHNIQUE: CT angiography was performed with a multi-detector CT scanner. Data acquisition was obtained from the skull base through the vertex following intravenous administration of IV Isovue 370 100CC. MIP images were reconstructed from the axial data set. Post-processing of the angiographic images was performed, with multiplanar reformation and 3D reconstruction. Individualized dose optimization techniques were used for this CT. COMPARISON: No relevant priors. FINDINGS: Normal bilateral petrous carotid arteries. There is calcified plaque formation of the right cavernous carotid artery, without a cross-sectional luminal stenosis. There is calcified plaque formation of the left cavernous carotid artery, without a cross-sectional luminal stenosis. Normal right A1 segments of the anterior cerebral artery. Normal left A1 segments of the anterior cerebral artery. Normal intact anterior communicating artery (ACOM). Normal bilateral A2 segments of the anterior cerebral arteries. Normal right M1 and M2 segments of the middle cerebral arteries, with a normal M1 bifurcation. Normal left M1 and M2 segments of the middle cerebral arteries, with a normal M1 bifurcation. Normal right posterior communicating artery (PCOM). Normal left posterior communicating artery (PCOM). Normal bilateral vertebral arteries. Normal basilar artery with a normal basilar bifurcation. The visualized bilateral superior cerebellar (SCA) arteries are normal. Normal bilateral P1, P2 and visualized P3 segments of the posterior cerebral arteries. There is no demonstrated aneurysm of the [place] of [place]. Atherosclerotic calcification of the vertebral arteries bilaterally. Calcification of the basal ganglia bilaterally. This a normal variant. AORTIC ARCH: There is atherosclerotic calcific plaque formation of the aortic arch and great vessels arising from the aortic arch, without a hemodynamically significant stenosis. Atherosclerotic calcification at the origin of the left subclavian artery and brachiocephalic artery. 1 cm hypodensity in the lower pole of the left lobe of the thyroid. RIGHT CAROTID ARTERIES: There is atherosclerotic plaque formation of the common carotid artery, but without a hemodynamically significant stenosis. There is moderate atherosclerotic plaque formation with moderate narrowing of the right carotid bulb. There is extensive atherosclerotic plaque formation of the origin of the right internal carotid artery with an estimated stenosis of greater than 70%. Normal visualized cervical portion of the right internal carotid artery. Normal origin of the right external carotid artery (ECA). LEFT CAROTID ARTERIES: There is atherosclerotic plaque formation of the common carotid artery, but without a hemodynamically significant stenosis. There is moderate atherosclerotic plaque formation with moderate narrowing of the carotid bulb. There is moderate atherosclerotic plaque formation of the origin of the left internal carotid artery with an estimated stenosis of 50-69% stenosis. Normal visualized cervical portion of the left internal carotid artery. Normal origin of the left external carotid artery (ECA). VERTEBRAL ARTERIES: Normal bilateral vertebral arteries. CT/CTA Head AND Neck W/ Contrast IMPRESSION: Atherosclerotic plaque of the carotid bifurcations bilaterally as described worse on the right side. Electronically Signed: Tanner Howell, at 15:51 EDT , Service support ,
--- NOTE | 2019-03-05 14:12 | PCM.CONS.GEN ---
Problem List (1) Dizziness Status: Acute (2) Vertigo Status: Acute Reason for Consult Date of Consultation: 03/05/19 Reason for Consultation: Dizziness History of Present Illness: The patient is a 69 year old F with PMH HTN, DM, osteoarthritis admitted with dizziness. Per patient the dizziness started about 2 days ago on 03/03/2019 and per patient the whole room started spinning she was nauseous and had difficulty in getting up or walking and she had to hold onto things. She denies any headaches at present, denies any visual disturbances or speech disturbances, focal motor weakness or sensory loss along with the dizziness. Per patient her dizziness got worse by movement movement of the head. Patient patient continues to have dizziness. She denies any new onset of neck pain or radicular symptoms. Per patient she lives alone, does not use a cane or a walker to ambulate, denies any frequent falls, and does not need any assistance for her ADLs. Per patient she has a history of bilateral cerumen impactions and has seen ENT in the past. [facility] was positive for rotatory fatigable nystagmus in the left ear. MRI Brain done on admission reported not to show any acute stroke. [] Past Medical History Past Medical History (Chronic Problems): Chronic Problems Diabetes (Chronic) HTN (hypertension) (Chronic) Osteoarthritis (Chronic) Cerumen impaction (Chronic) Allergies furosemide [From Lasix] Allergy (Verified 03/03/19 12:47) Hives Sulfa (Sulfonamide Antibiotics) Allergy (Verified 03/03/19 12:47) Hives Home Medications: Ambulatory Orders Medication Instructions Recorded Cholecalciferol (Vitamin D3) 1 tab PO QWEEK 03/03/19 [D3-50] Glimepiride 1 tab PO DAILY 03/03/19 Indapamide 1.25 mg PO DAILY 03/03/19 Meclizine HCl 12.5 mg PO TID PRN PRN 4 Days #12 03/03/19 tab Metoprolol Tartrate 50 mg PO BID 03/03/19 Naproxen 500 mg PO BID PRN 03/03/19 Ondansetron [Zofran Odt] 4 mg PO Q8H PRN PRN #6 tab 03/03/19 traMADol [Ultram (G)] 50 mg PO DAILY 09/22/19 Surgical History: hysterectomy - partial Psychiatric History: No pertinent psych hx 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 Lives: Alone Smoking Status: Never smoker Alcohol: None Drugs: None Review of Systems Constitutional: Reports: - - Complete ROS negative except as documented in HPI Patient Problems: Active and Suspected Problems Vertigo (Acute) Dizziness (Acute) - Physical Exam General: Alert HEENT: Normocephalic Neck: Supple Lungs: Normal air movement Cardiovascular: Normal S1, Normal S2 Abdomen: Bowel Sounds Present Extremities: No cyanosis Neurological: - - Conscious, alert, AOA x3, CN II through XII grossly intact, no nystagmus, power 5 x 5 both upper and lower extremities, no sensory loss, no cerebellar signs, gait deferred, reflexes + B/L B/S/T/K/A Psych/Mental Status: Normal Affect Vital Signs Temp Pulse Resp BP Pulse Ox 98.5 F 75 18 168/67 H 91 03/05/19 07:45 03/05/19 10:00 03/05/19 07:45 03/05/19 08:47 03/05/19 07:45 Oxygen Delivery Method Room Air Weight: 73 kg Body Mass Index (BMI) 30.4 Intake and Output for Last 24 Hours 03/03/19 03/04/19 03/05/19 23:59 23:59 23:59 Intake Total 1300 / 1300 3909.17 / 3909.17 2438.34 / 2438.34 Output Total 700 / 700 1700 / 1700 3600 / 3600 Balance 600 / 600 2209.17 / 2209.17 -1161.66 / -1161.66 POC Glucose 03/05/19 03/05/19 03/04/19 11:29 06:44 21:05 POC Glucose 127 H 86 216 H 03/04/19 03/04/19 17:06 16:27 POC Glucose 103 62 L Assessment/Plan All Active Problems Vertigo (Acute) Dizziness (Acute) The patient is a 69 year old F with PMH HTN, DM, osteoarthritis admitted with dizziness. Per patient the dizziness started about 2 days ago on 03/03/2019 and per patient the whole room started spinning she was nauseous and had difficulty in getting up or walking and she had to hold onto things. She denies any headaches at present, denies any visual disturbances or speech disturbances, focal motor weakness or sensory loss along with the dizziness. Per patient her dizziness got worse by movement movement of the head. Patient patient continues to have dizziness. She denies any new onset of neck pain or radicular symptoms. Per patient she lives alone, does not use a cane or a walker to ambulate, denies any frequent falls, and does not need any assistance for her ADLs. Per patient she has a history of bilateral cerumen impactions and has seen ENT in the past. [facility] was positive for rotatory fatigable nystagmus in the left ear. MRI Brain done on admission reported not to show any acute stroke. Impression Dizziness likely peripheral etiology/BPPV Rule out VBI Plan ?MRI brain ported not to show any acute stroke ?CT angiogram head/neck ?Echocardiogram ?Vestibular therapy/ENT consult ?On Antivert ?Better blood pressure control with a goal of blood pressure less than 130/80 mmHg, will defer to hospitalist team for further evaluation and management. ?PT/OT ?GI/DVT prophylaxis ?Fall precautions ?Further medical management per hospitalist team ?Follow-up with neurology as outpatient in 4 to 6 weeks ?Please call with questions if any ?Thank you for allowing us to participate in patient's current management This note is generated using [employer] dictation software. It may contain incorrect words, spellings and punctuation that were not noted in the review of the note prior to signing. Code Visit Inpatient E&M: 14040 Init Hosp L3
--- NOTE | 2019-03-05 14:22 | ECHOD_ITS ---
Reason For Study: DIZZINESS Procedure This was a 2D Doppler, Color Flow transthoracic echocardiogram. Exam performed portable in patient room. Left Ventricle Normal size and thickness. The estimated ejection fraction is 75 %. No regional wall motion abnormalities noted. Right Ventricle Normal size and thickness. Normal systolic function. Atria The left atrium is mildly enlarged. Normal right atrium. Normal atrial septum. Mitral Valve Mild diffuse mitral valve thickening. Severe mitral annular calcification extending into the posterior leaflet. Mild mitral valve stenosis. Peak transmitral valve gradient 14 mmHg. Mean transmitral valve gradient 5 mmHg. Tricuspid Valve Normal tricuspid valve. Trivial tricuspid valve insufficiency. Right ventricular systolic pressure estimated to be 37 mmHg. Mild pulmonary hypertension. Aortic Valve Trisinus/trileaflet aortic valve. Pulmonic Valve Normal pulmonic valve. Trivial pulmonic valve insufficiency. Great Vessels Normal aortic root. Normal arch. Normal inferior vena cava. Inferior vena cava collapse with sniff. Pericardium/Pleural No pericardial effusion. MMode/2D Measurements & Calculations RVDd: 3.5 cm Ao root diam: 3.3 cm LAV(MOD-sp2): 80.5 ml LVAd ap4: 27.7 cm2 SV(MOD-sp4): 38.7 ml SV(sp4-el): 42.5 ml EDV(MOD-sp4): 82.3 ml EDV(sp4-el): 88.0 ml LVAs ap4: 17.2 cm2 ESV(MOD-sp4): 43.6 ml ESV(sp4-el): 45.4 ml EF(MOD-sp4): 47.0 % EF(sp4-el): 48.3 % LA A4 area: 20.4 cm2 LA dimension(2D): 4.4 cm RA A4 area: 13.0 cm2 Doppler Measurements & Calculations Lat Peak E' Jamari: 3.9 cm/sec Med Peak E' Jamari: 3.5 cm/sec MV V2 max: 185.8 cm/sec MV max P.8 mmHg MV V2 mean: 98.5 cm/sec MV mean P.5 mmHg MV V2 VTI: 43.9 cm Ao V2 max: 175.3 cm/sec LV V1 max: 113.8 cm/sec PA V2 max: 94.0 cm/sec Ao max P.3 mmHg LV V1 max P.2 mmHg Ao V2 mean: 130.5 cm/sec LV V1 mean P.1 mmHg Ao mean P.3 mmHg LV V1 mean: 84.0 cm/sec Ao V2 VTI: 38.4 cm LV V1 VTI: 27.0 cm TR max jamari: 285.0 cm/sec MV P1/2t-pr_phl: 105.2 msec TR max P.5 mmHg Interpretation Summary The estimated ejection fraction is 75 %. The left atrium is mildly enlarged. Mild mitral valve stenosis. Peak transmitral valve gradient 14 mmHg. Mean transmitral valve gradient 5 mmHg. Trivial tricuspid valve insufficiency. Right ventricular systolic pressure estimated to be 37 mmHg. Mild pulmonary hypertension. There is no comparison study available. Ordering Physician: Rajendra Schmidt Referring Physician: CARMEN JOHNSON Performed By: Vandana Sanderson, CRUZ, RVT
[2019-03-05] MEDS: LORazepam 2 MG/ML Syringe 1 MG IV (14:49)
[2019-03-05 16:50] LABS: Bedside Glucose 109 mg/dL (70-110)
[2019-03-05] MEDS: hydrALAZINE 20 MG/ML Vial 10 MG IV (20:56)
[2019-03-05] MEDS: Mag Hydrox/Al Hydrox/Simeth 30 ML UDC PO (21:52)
[2019-03-05 22:01] LABS: Bedside Glucose 139 mg/dL (70-110)
[2019-03-05] MEDS: Enalaprilat 1.25 MG/ML Vial IV (22:30)
[2019-03-06] MEDS: Acetaminophen 325 MG Tablet 650 MG PO ×2 (01:14→08:12)
[2019-03-06] MEDS: Meclizine HCl 25 MG Tablet PO ×2 (02:17→08:12)
[2019-03-06 02:23] VITALS: BP 160/86; PULSE 76; RESP 18; TEMP 36.8; O2SAT 96
[2019-03-06 03:59] VITALS: PULSE 79
[2019-03-06] MEDS: 0.9% Normal Saline 1,000 ML 125 ML IV (06:28)
[2019-03-06 06:41] LABS: Bedside Glucose 133 mg/dL (70-110)
--- NOTE | 2019-03-06 07:23 | PN_ITS ---
Patient Problems: Active and Suspected Problems Vertigo (Acute) Dizziness (Acute) Subjective: CC; Follow-up vertigo Symptoms appear to be improving plan is for patient to be transferred to patient rehab unit Objective: GENERAL: cooperative HEENT: Atraumatic; EYES; Anicteric, Normal Conjunctiva NECK; supple, normal thyroid, RESPIRATORY: Diminished to auscultation CARDIOVASCULAR: Regular S1 S2, GI: soft, non-tender, normoactive bowel sounds, : No Renal angle tenderness; EXTREMITIES: No edema, no clubbing, MUSCULOSKELETAL: No Joint Tenderness; NEURO: Awake; no lateralizing signs. SKIN: No Rash PSYCH; Normal affect Vitals/I&O's: Vital Signs Temp Pulse Resp BP Pulse Ox 98.2 F 76 18 160/86 H 96 03/06/19 02:23 03/06/19 02:23 03/06/19 02:23 03/06/19 02:03/06/19 02:23 Oxygen Delivery Method Room Air Weight: 73 kg Body Mass Index (BMI) 30.4 Intake and Output for Last 24 Hours 03/04/19 03/05/19 03/06/19 23:59 23:59 23:59 Intake Total 3909.17 / 3909.17 3778.34 / 3778.34 1400 / 1400 Output Total 1700 / 1700 6000 / 6000 1500 / 1500 Balance 2209.17 / 2209.17 -2221.66 / -2221.66 -100 / -100 Laboratory Results 03/05/19 11:29: POC Glucose 127 H 03/05/19 16:47: POC Glucose 109 03/05/19 20:59: POC Glucose 139 H 03/06/19 06:26: POC Glucose 133 H Current Medications Acetaminophen (Tylenol) 650 mg PO Q6H PRN PRN PRN Reason: Non-cardiac pain (mod-severe) Last Admin: 03/06/19 01:14 Dose: 650 mg Documented by: Al Hydroxide/Mg Hydroxide (Mylanta Ii) 15 - 30 ml PO Q4H PRN PRN PRN Reason: INDIGESTION Last Admin: 03/05/19 21:52 Dose: 30 ml Documented by: Albuterol Sulfate (Ventolin Aerosols) 2.5 mg INHALATION Q2H PRN PRN PRN Reason: dyspnea, wheezing Carbamide Perox/Anhydrous Glycerin (Debrox) 5 drop OTIC DAILY [facility] Last Admin: 03/05/19 12:42 Dose: 5 drop Documented by: Dextrose (D50w Syringe) 0 gm IV X1 PRN; Protocol PRN Reason: Hypoglycemia Enoxaparin Sodium (Lovenox) 30 mg SC DAILY@1000 SILVANA Last Admin: 03/05/19 08:43 Dose: 30 mg Documented by: Famotidine (Pepcid) 20 mg PO BID [facility] Last Admin: 03/05/19 21:00 Dose: 20 mg Documented by: Glucagon () 1 mg IM .X1 PRN PRN Reason: Hypoglycemia Hydralazine HCl (Apresoline Iv) 10 mg IV Q4H PRN PRN PRN Reason: SBP > 160 Last Admin: 03/05/19 20:56 Dose: 10 mg Documented by: Sodium Chloride () 1,000 mls @ 125 mls/hr IV .Q8H [facility] Last Admin: 03/06/19 06:28 Dose: 125 mls/hr Documented by: Indapamide (Lozol) 1.25 mg PO DAILYCM [facility] Last Admin: 03/05/19 08:47 Dose: 1.25 mg Documented by: Insulin Human Lispro (Humalog Kwikpen (Bkc)) 0 unit SC ACHS [facility]; Protocol Last Admin: 03/06/19 06:28 Dose: Not Given Documented by: Magnesium Hydroxide (Milk Of Magnesia) 30 ml PO DAILY PRN PRN Reason: Constipation Meclizine HCl (Antivert) 25 mg PO Q6H [facility] Last Admin: 03/06/19 02:17 Dose: 25 mg Documented by: Melatonin (Melatonin) 3 mg PO QHS PRN PRN PRN Reason: INSOMNIA Metoprolol Tartrate (Lopressor (Beta Tenisha)) 50 mg PO BID [facility] Last Admin: 03/05/19 21:00 Dose: 50 mg Documented by: Nutritional Formula (Lactose Free) (Glucerna Shake) 120 ml PO TIDCM [facility] Last Admin: 03/05/19 18:06 Dose: Not Given Documented by: Ondansetron HCl (Zofran) 4 mg IV Q8H PRN PRN PRN Reason: NAUSEA/VOMITING Sodium Chloride () 10 - 40 ml IV UD PRN PRN Reason: SALINE FLUSH Last Admin: 03/04/19 16:34 Dose: 10 ml Documented by: Tramadol HCl (Ultram) 50 mg PO DAILY SIL[facility]NA Last Admin: 03/05/19 08:51 Dose: 50 mg Documented by: Medical Necessity - Tobacco Use Smoking Status: Never smoker Assessment/Plan All Active Problems Vertigo (Acute) Dizziness (Acute) Patient is a 69-year-old lady presented with acute vertigo worsening with position. Patient also had difficulty ambulating admitted to regular nursing floor with consultation placed to ENT. Seen by Dr. Sergey John who felt patient had BPPV with chronic cerumen impaction 1. Acute vertigo suspected to be secondary to BPPV. ~ Patient is been seen in consultation by ENT Dr. Sergey John's note reviewed. Also requested for PT OT. With the patient still remaining significantly ve rtiginous MRI of the brain was ordered to rule out posterior circulation CVA ?03/05/2019: Patient still remains significantly symptomatic. Discussed with patient about being discharged to an inpatient rehab facility or long term facility for rehab. Consultation was also placed to neurology MRI obtained the day prior was unremarkable ?03/06/2019 seen by neurology recommended for patient to undergo CTA of the neck. Results of patient CTA as below 2. Chronic bilateral cerumen impaction patient prescribed Debrox for patient to undergo outpatient disimpaction 3. Diabetes mellitus type 2. Patient oral agent placed on hold, placed on diabetic diet and subsequently placed on Accu-Cheks before meals and at bedtime with sliding scale coverage 4. Hypertension blood pressure controlled continue home medications 5. Obesity with BMI of 30.4 weight loss advised 6. Generalized osteoarthritis pain medications as needed 7. DVT prophylaxis enoxaparin Clinical Impression(s) from Imaging Studies Head/Neck CTA 03/05/19 14:10 IMPRESSION: Atherosclerotic plaque of the carotid bifurcations bilaterally as described worse on the right side. Electronically Signed: Tanner Howell, at 15:51 EDT , Service support , Code Visit Inpatient E&M: 95972 Subs Hosp L2
[2019-03-06 08:07] VITALS: BP 184/83; PULSE 73; RESP 16; TEMP 37; O2SAT 97
[2019-03-06 08:08] VITALS: BP 192/83; PULSE 75
[2019-03-06 08:13] VITALS: PULSE 75
[2019-03-06] MEDS: Glucerna Shake 120 ML LIQUID PO (08:13)
[2019-03-06] MEDS: Indapamide 2.5 MG Tablet 1.25 MG PO (08:13)
[2019-03-06] MEDS: Metoprolol Tartrate 50 MG Tablet PO (08:13)
[2019-03-06] MEDS: Famotidine 20 MG Tablet PO (08:14)
--- NOTE | 2019-03-06 08:17 | NURSING ---
Addendum entered by Sandra To 03/06/19 08:22: reports loss of appetite due to this. Original Note: pt reports that her in April of last year and she sees a psychologist once a week. she states she anastacio all the time and isn't over it. She states she has no family and she is all alone. Pt reports 's bday would have been this monday. She reports parents and all siblings but 1 have . typically flat affect- but tearful at this time. She states she hasn't been to [facility] to [facility] yet and can't bring herself to. Per report last night- pt had purse of all her pills in her lap. all meds remain locked in med drawer.
--- NOTE | 2019-03-06 10:03 | CASEMGMT ---
Social Work Note SW spoke with Jing with [facility] who states [facility] is able to accept pt today. Physician updated. SW to meet with pt to confirm discharge plans. Plan: Likely [facility] today [facility] [employer], [employer]
--- NOTE | 2019-03-06 11:25 | DCINST_ITS ---
- Discharge Diagnoses Current Active Problems: Current Active and Chronic Problems Vertigo (Acute) Diabetes (Chronic) HTN (hypertension) (Chronic) Osteoarthritis (Chronic) Cerumen impaction (Chronic) Dizziness (Acute) You will use the following diet at home:: Calorie/Carbohydrate Controlled (specify 1200, 1400, etc) - 1800 Your food should be the consistency of: Regular Discharge Activity: Return to Normal Activity Instructions: Benign Positional Vertigo Allergies/Adverse Reactions: Allergies furosemide [From Lasix] Allergy (Verified 03/03/19 12:47) Hives Sulfa (Sulfonamide Antibiotics) Allergy (Verified 03/03/19 12:47) Hives Medications to take at Discharge Cholecalciferol (Vitamin D3) [D3-50] 1 tab PO QWEEK 03/03/19 Glimepiride 1 tab PO DAILY 03/03/19 Indapamide 1.25 mg PO DAILY 03/03/19 Meclizine HCl 12.5 mg PO TID PRN PRN 4 Days #12 tab 03/03/19 Metoprolol Tartrate 50 mg PO BID 03/03/19 Naproxen 500 mg PO BID PRN 03/03/19 Ondansetron [Zofran Odt] 4 mg PO Q8H PRN PRN #6 tab 03/03/19 traMADol [Ultram] 50 mg PO DAILY 03/03/19 Acetaminophen [Tylenol Tablet] 650 mg PO Q6H PRN PRN tab 03/06/19 Albuterol Aerosols [Ventolin Aerosols] 2.5 mg INHALATION Q2H PRN PRN vial.neb. 03/06/19 Amlodipine [Norvasc] 10 mg PO DAILY tab 03/06/19 Carbamide Peroxide [Ear Drops] 15 ml OT BID #5 day 03/06/19 Enoxaparin [Lovenox] 30 mg SUBCUT DAILY@1000 syringe 03/06/19 Glucagon 1 mg IM .X1 PRN syringe 03/06/19 Glucerna Shake 120 ml PO TIDCM liquid 03/06/19 Insulin Lispro [Humalog KwikPen] See Protocol SUBCUT ACHS insuln.pen 03/06/19 Mag Hydrox/Al Hydrox/Simeth [Mylanta II] 15 - 30 ml PO Q4H PRN PRN udc 03/06/19 Magnesium Hydroxide [Milk Of Magnesia] 30 ml PO DAILY PRN udc 03/06/19 Meclizine HCl [Antivert] 25 mg PO Q6H tab 03/06/19 Melatonin 3 mg PO QHS PRN PRN tab 03/06/19 The following prescriptions were given: Carbamide Peroxide [Ear Drops] 15 ml OT BID #5 day Meclizine HCl 12.5 mg PO TID PRN PRN 4 Days #12 tab PRN Reason: Dizziness Prescription Printed Ondansetron [Zofran Odt] 4 mg PO Q8H PRN PRN #6 tab PRN Reason: Nausea Prescription Printed Primary Care Physician: Miladis Foote MD [Primary Care Provider] - Please follow up with your Primary Care Physician in: in 1-2 weeks Test Results: Test results from this visit will be discussed in further detail at your follow- up appointment, if applicable. Please Follow Up With: Sergey John MD When: in 1 week Proposed Discharge Date: 03/06/19
--- NOTE | 2019-03-06 11:32 | PCM.DC.SUM ---
Discharge Date and Diagnosis - Problem List Patient Problems: Active and Suspected Problems Vertigo (Acute) Dizziness (Acute) Date of Admission: 03/03/19 Date of Discharge: 03/06/19 - Primary Discharge Diagnosis Active and Suspected Problems Vertigo (Acute) Dizziness (Acute) - Secondary Discharge Diagnosis Chronic Problems Diabetes (Chronic) HTN (hypertension) (Chronic) Osteoarthritis (Chronic) Cerumen impaction (Chronic) Hospital Course and Treatment Imaging Results: Clinical Impression(s) from Imaging Studies Brain CT 03/03/19 13:16 IMPRESSION: Normal unenhanced CT scan of the brain. Electronically Signed: Alva Ramos MD at 14:00 EDT Tel , Service support , Brain MRI 03/04/19 11:34 IMPRESSION: Normal unenhanced and enhanced MRI of the brain. Electronically Signed: Melanie Hollis, at 15:55 EDT Tel , Service support , Head/Neck CTA 03/05/19 14:10 IMPRESSION: Atherosclerotic plaque of the carotid bifurcations bilaterally as described worse on the right side. Electronically Signed: Tanner Howell, at 15:51 EDT , Service support , Summary of Care Provided: Patient is a 69-year-old lady presented with acute vertigo worsening with position. Patient also had difficulty ambulating admitted to regular nursing floor with consultation placed to ENT. Seen by Dr. Sergey John who felt patient had BPPV with chronic cerumen impaction 1. Acute vertigo suspected to be secondary to BPPV. ~ Patient is been seen in consultation by ENT Dr. Sergey John's note reviewed. Also requested for PT OT. With the patient still remaining significantly vertiginous MRI of the brain was ordered to rule out posterior circulation CVA came back negative. Discussed with patient about being discharged to an inpatient rehab facility or jail facility for rehab. Consultation was also placed to neurology 2. Chronic bilateral cerumen impaction patient prescribed Debrox for patient to undergo outpatient disimpaction 3. Diabetes mellitus type 2. Patient oral agent placed on hold, placed on diabetic diet and subsequently placed on Accu-Cheks before meals and at bedtime with sliding scale coverage 4. Hypertension blood pressure controlled continue home medications 5. Obesity with BMI of 30.4 weight loss advised 6. Generalized osteoarthritis pain medications as needed 7. DVT prophylaxis enoxaparin Patient Problems: Active and Suspected Problems Vertigo (Acute) Dizziness (Acute) Objective: GENERAL: cooperative HEENT: Atraumatic; EYES; Anicteric, Normal Conjunctiva NECK; supple, normal thyroid, RESPIRATORY: Diminished to auscultation CARDIOVASCULAR: Regular S1 S2, GI: soft, non-tender, normoactive bowel sounds, : No Renal angle tenderness; EXTREMITIES: No edema, no clubbing, MUSCULOSKELETAL: No Joint Tenderness; NEURO: Awake; no lateralizing signs. SKIN: No Rash PSYCH; Normal affect - Physical Exam Vital Signs Temp Pulse Resp BP Pulse Ox 98.6 F 75 16 192/83 H 97 03/06/19 08:07 03/06/19 08:13 03/06/19 08:07 03/06/19 08:08 03/06/19 08:07 Oxygen Delivery Method Room Air Weight: 73 kg Body Mass Index (BMI) 30.4 Intake and Output for Last 24 Hours 03/04/19 03/05/19 03/06/19 23:59 23:59 23:59 Intake Total 3909.17 / 3909.17 3778.34 / 3778.34 1400 / 1400 Output Total 1700 / 1700 6000 / 6000 1500 / 1500 Balance 2209.17 / 2209.17 -2221.66 / -2221.66 -100 / -100 POC Glucose 03/06/19 03/05/19 03/05/19 06:26 20:59 16:47 POC Glucose 133 H 139 H 109 03/05/19 11:29 POC Glucose 127 H Discharge Diet: 1800 Calorie Control Diet Discharge Activity: Return to Normal Activity Home Medications: Medications to take at Discharge Cholecalciferol (Vitamin D3) [D3-50] 1 tab PO QWEEK 03/03/19 Glimepiride 1 tab PO DAILY 03/03/19 Indapamide 1.25 mg PO DAILY 03/03/19 Meclizine HCl 12.5 mg PO TID PRN PRN 4 Days #12 tab 03/03/19 Metoprolol Tartrate 50 mg PO BID 03/03/19 Naproxen 500 mg PO BID PRN 03/03/19 Ondansetron [Zofran Odt] 4 mg PO Q8H PRN PRN #6 tab 03/03/19 traMADol [Ultram] 50 mg PO DAILY 03/03/19 Acetaminophen [Tylenol Tablet] 650 mg PO Q6H PRN PRN tab 03/06/19 Albuterol Aerosols [Ventolin Aerosols] 2.5 mg INHALATION Q2H PRN PRN vial.neb. 03/06/19 Amlodipine [Norvasc] 10 mg PO DAILY tab 03/06/19 Carbamide Peroxide [Ear Drops] 15 ml OT BID #5 day 03/06/19 Enoxaparin [Lovenox] 30 mg SUBCUT DAILY@1000 syringe 03/06/19 Glucagon 1 mg IM .X1 PRN syringe 03/06/19 Glucerna Shake 120 ml PO TIDCM liquid 03/06/19 Insulin Lispro [Humalog KwikPen] See Protocol SUBCUT ACHS insuln.pen 03/06/19 Mag Hydrox/Al Hydrox/Simeth [Mylanta II] 15 - 30 ml PO Q4H PRN PRN udc 03/06/19 Magnesium Hydroxide [Milk Of Magnesia] 30 ml PO DAILY PRN udc 03/06/19 Meclizine HCl [Antivert] 25 mg PO Q6H tab 03/06/19 Melatonin 3 mg PO QHS PRN PRN tab 03/06/19 Following Prescrptions Were Given to Patient: Carbamide Peroxide [Ear Drops] 15 ml OT BID #5 day Meclizine HCl 12.5 mg PO TID PRN PRN 4 Days #12 tab PRN Reason: Dizziness Prescription Printed Ondansetron [Zofran Odt] 4 mg PO Q8H PRN PRN #6 tab PRN Reason: Nausea Prescription Printed Primary Care Physician: Miladis Foote MD [Primary Care Provider] - Please follow up with your Primary Care Physician in: in 1-2 weeks Please Follow Up With: Sergey John MD When: in 1 week Patient Instructions: Benign Positional Vertigo Disposition: Inpt Rehab Unit/Facility Minutes spent on discharge:: 35 Patient Condition:: Stable Medical Necessity - Tobacco Use Smoking Status: Never smoker Meaningful Use Info Meaningful Use Diagnoses (Choose all that apply): None applicable Code Visit Inpatient E&M: 40451 Disch Hosp
[2019-03-06 11:34] VITALS: BP 169/82; PULSE 71
--- NOTE | 2019-03-06 11:45 | PCM.DC ---
- Discharge Diagnoses Current Active Problems: Current Active and Chronic Problems Vertigo (Acute) Diabetes (Chronic) HTN (hypertension) (Chronic) Osteoarthritis (Chronic) Cerumen impaction (Chronic) Dizziness (Acute) Discharge Activity: Return to Normal Activity Instructions: Benign Positional Vertigo Allergies/Adverse Reactions: Allergies furosemide [From Lasix] Allergy (Verified 03/03/19 12:47) Hives Sulfa (Sulfonamide Antibiotics) Allergy (Verified 03/03/19 12:47) Hives Medications to take at Discharge Cholecalciferol (Vitamin D3) [D3-50] 1 tab PO QWEEK 03/03/19 Glimepiride 1 tab PO DAILY 03/03/19 Indapamide 1.25 mg PO DAILY 03/03/19 Meclizine HCl 12.5 mg PO TID PRN PRN 4 Days #12 tab 03/03/19 Metoprolol Tartrate 50 mg PO BID 03/03/19 Naproxen 500 mg PO BID PRN 03/03/19 Ondansetron [Zofran Odt] 4 mg PO Q8H PRN PRN #6 tab 03/03/19 traMADol [Ultram] 50 mg PO DAILY 03/03/19 Amlodipine [Norvasc] 10 mg PO DAILY #60 tab 03/06/19 Carbamide Peroxide [Ear Drops] 15 ml OT BID #150 ml 03/06/19 Meclizine HCl [Antivert] 25 mg PO Q6H tab 03/06/19 The following prescriptions were given: Carbamide Peroxide [Ear Drops] 15 ml OT BID #150 ml Prescription Printed Meclizine HCl 12.5 mg PO TID PRN PRN 4 Days #12 tab PRN Reason: Dizziness Prescription Printed Amlodipine [Norvasc] 10 mg PO DAILY #60 tab Transmission Status: Pending to [id number] Ondansetron [Zofran Odt] 4 mg PO Q8H PRN PRN #6 tab PRN Reason: Nausea Prescription Printed Primary Care Physician: Miladis Foote MD [Primary Care Provider] - Please follow up with your Primary Care Physician in: in 1-2 weeks Test Results: Test results from this visit will be discussed in further detail at your follow-up appointment, if applicable. Please Follow Up With: Sergey John MD When: in 1 week Proposed Discharge Date: 03/06/19
[2019-03-06] MEDS: amLODIPine 10 MG Tablet PO (11:46)
[2019-03-06] MEDS: Carbamide Peroxide 15 ML Bottle 5 DRP OTIC (11:47)
--- NOTE | 2019-03-06 11:47 | PCM.DC.SUM ---
Discharge Date and Diagnosis - Problem List Patient Problems: Active and Suspected Problems Vertigo (Acute) Dizziness (Acute) Date of Admission: 03/03/19 Date of Discharge: 03/06/19 - Primary Discharge Diagnosis Active and Suspected Problems Vertigo (Acute) Dizziness (Acute) - Secondary Discharge Diagnosis Chronic Problems Diabetes (Chronic) HTN (hypertension) (Chronic) Osteoarthritis (Chronic) Cerumen impaction (Chronic) Hospital Course and Treatment Imaging Results: Clinical Impression(s) from Imaging Studies Brain CT 03/03/19 13:16 IMPRESSION: Normal unenhanced CT scan of the brain. Electronically Signed: Alva Ramos MD at 14:00 EDT Tel , Service support , Brain MRI 03/04/19 11:34 IMPRESSION: Normal unenhanced and enhanced MRI of the brain. Electronically Signed: Melanie Hollis, at 15:55 EDT Tel , Service support , Head/Neck CTA 03/05/19 14:10 IMPRESSION: Atherosclerotic plaque of the carotid bifurcations bilaterally as described worse on the right side. Electronically Signed: Tanner Howell, at 15:51 EDT , Service support , GENERAL: cooperative HEENT: Atraumatic; moist oral mucosa EYES; Anicteric, Normal Conjunctiva NECK; supple, normal thyroid, no distended JVD. RESPIRATORY: Diminished to auscultation bilaterally, CARDIOVASCULAR: Regular S1 S2, no audible murmurs GI: soft, non-tender, normoactive bowel sounds, : No Renal angle tenderness; NEURO: Awake; no lateralizing signs. SKIN: No Rash PSYCH; Normal affect Summary of Care Provided: T Patient is a 69-year-old lady presented with acute vertigo worsening with position. Patient also had difficulty ambulating admitted to regular nursing floor with consultation placed to ENT. Seen by Dr. Sergey John who felt patient had BPPV with chronic cerumen impaction 1. Acute vertigo suspected to be secondary to BPPV. ~ Patient is been seen in consultation by ENT Dr. Sergey John's note reviewed. Also requested for PT OT. With the patient still remaining significantly vertiginous MRI of the brain was ordered to rule out posterior circulation CVA came back negative. Discussed with patient about being discharged to an inpatient rehab facility or [facility] facility for rehab. Consultation was also placed to neurology patient initially agreed to be discharged to the inpatient rehab unit she however changed her mind. She was discharged home instructed to follow-up with PCP within 3 to 5 days and to follow-up with Dr. Sergey diaz for ENT follow-up within 2 to 3 days. 2. Chronic bilateral cerumen impaction patient prescribed Debrox for patient to undergo outpatient disimpaction 3. Diabetes mellitus type 2. Patient oral agent placed on hold, placed on diabetic diet and subsequently placed on Accu-Cheks before meals and at bedtime with sliding scale coverage 4. Hypertension: Blood pressure controlled remained labile during her hospital stay amlodipine added to her regimen prior to discharge 5. Obesity with BMI of 30.4 weight loss advised 6. Generalized osteoarthritis pain medications as needed 7. DVT prophylaxis enoxaparin Patient Problems: Active and Suspected Problems Vertigo (Acute) Dizziness (Acute) - Physical Exam Vital Signs Temp Pulse Resp BP Pulse Ox 98.6 F 71 16 169/82 H 97 03/06/19 08:07 03/06/19 11:34 03/06/19 08:07 03/06/19 11:34 03/06/19 08:07 Oxygen Delivery Method Room Air Weight: 73 kg Body Mass Index (BMI) 30.4 Intake and Output for Last 24 Hours 03/04/19 03/05/19 03/06/19 23:59 23:59 23:59 Intake Total 3909.17 / 3909.17 3778.34 / 3778.34 1400 / 1400 Output Total 1700 / 1700 6000 / 6000 1500 / 1500 Balance 2209.17 / 2209.17 -2221.66 / -2221.66 -100 / -100 POC Glucose 03/06/19 03/05/19 03/05/19 06:26 20:59 16:47 POC Glucose 133 H 139 H 109 Discharge Diet: 1800 Calorie Control Diet Discharge Activity: Return to Normal Activity Home Medications: Medications to take at Discharge Cholecalciferol (Vitamin D3) [D3-50] 1 tab PO QWEEK 03/03/19 Glimepiride 1 tab PO DAILY 03/03/19 Indapamide 1.25 mg PO DAILY 03/03/19 Meclizine HCl 12.5 mg PO TID PRN PRN 4 Days #12 tab 03/03/19 Metoprolol Tartrate 50 mg PO BID 03/03/19 Naproxen 500 mg PO BID PRN 03/03/19 Ondansetron [Zofran Odt] 4 mg PO Q8H PRN PRN #6 tab 03/03/19 traMADol [Ultram] 50 mg PO DAILY 03/03/19 Amlodipine [Norvasc] 10 mg PO DAILY #60 tab 03/06/19 Carbamide Peroxide [Ear Drops] 15 ml OT BID #150 ml 03/06/19 Meclizine HCl [Antivert] 25 mg PO Q6H tab 03/06/19 Following Prescrptions Were Given to Patient: Carbamide Peroxide [Ear Drops] 15 ml OT BID #150 ml Prescription Printed Meclizine HCl 12.5 mg PO TID PRN PRN 4 Days #12 tab PRN Reason: Dizziness Prescription Printed Amlodipine [Norvasc] 10 mg PO DAILY #60 tab Transmission Status: Pending to [id number] Ondansetron [Zofran Odt] 4 mg PO Q8H PRN PRN #6 tab PRN Reason: Nausea Prescription Printed Primary Care Physician: Miladis Foote MD [Primary Care Provider] - Please follow up with your Primary Care Physician in: in 1-2 weeks Please Follow Up With: Sergey John MD When: in 1 week Patient Instructions: Benign Positional Vertigo Disposition: Home Minutes spent on discharge:: 35 Patient Condition:: Stable Medical Necessity - Tobacco Use Smoking Status: Never smoker Meaningful Use Info Meaningful Use Diagnoses (Choose all that apply): None applicable Code Visit Inpatient E&M: 95500 Disch Hosp
--- NOTE | 2019-03-06 11:56 | NURSING ---
Addendum entered by Sandra To 03/06/19 13:32: Pt verbalized that her baby brother is in the hospital and that she needs to be there for him. She states that he has cancer and is on a breathing machine. Addendum entered by Sandra To 03/06/19 13:32: Pt denies dizziness and has been up walking hallways independently prior to leaving hospital. Addendum entered by Sandra To 03/06/19 13:25: Pt has been alert and orientated x3- spoke of prior to leaving and states that she wishes she could just go and be with him. This RN inquired if pt ever thought of harming herself. She states, oh God no, clearly you aren't hinduism because if you were you would know that it is the worst sin of all to do any harm to yourself. pt verbalized disapproval of this RN even mentioning anything. Notified that it is part of this nurses' job to assess each pt for their safety. Dr. Schmidt in and ordered for pt to take baby aspirin and pravacol after d/c as well as to f/u with Dr. Thierno Michael for vascular surgery. This RN notified pt of these things but refused to wait any longer for pravacol and states she will not take it anyway because she needs to think about it. This RN wrote down each thing and placed on her discharge information, including that pt had carotid US that showed narrowing of vessels. Pt verbalized understanding and states if she wants to take something she will discuss with her PCP. Pt adamant about leaving and states she is going to walk to bank to get money to get a taxi to get home. This RN encouraged patient to allow staff to call hospital van to save her a walk in socks. pt refused x2 and then accepted on 3rd offer. Van land acquisition analyst notified of situation and verbalized that they could take pt in next 10-15 minutes after called. Pt assisted downstairs with staff member to get into van safely. pt did show this RN her keys and verified that she could get into her house. Original Note: pt refusing rehab unit- states she has too many other things going on and cannot make it. Pt has been worried about not having correct shampoo and other items from home. Emotional support provided but pt but pt continues to refuse rehab. Given number for [facility], but pt states she doesn't need it. States she knows where to go.
--- NOTE | 2019-03-06 12:45 | CASEMGMT ---
Social Work Note RN updated this worker that pt is refusing RU and is discharging home. RENALDO met with pt. RENALDO asked pt why she doesn't want to go to . Pt states I have things that I have to do at home. Pt states my brother is in the hospital and I have to help him. SW offered support to pt but stated that physician is recommending pt go to for continued therapy. Pt again is refusing to go to and states she will be going home. RENALDO asked pt about outpatient therapy. Pt is agreeable. RENALDO explained that this worker will need to get script signed from physician and will give pt the script once it is signed. Pt is adamant that she needs to leave [facility] now. RENALDO asked pt to wait until this worker can get script signed from physician. Pt is out in waiting room waiting for the hospital van. RENALDO asked physician to sign script for outpatient therapy. SW tubed script to physician. This worker is still waiting for outpatient script and attempted to update pt that this worker is still waiting for script but pt already left [facility]. RENALDO placed a call to [employer] with [facility] and updated her that pt discharged home. Alexandria Holland ELECTRICAL MANUFACTURING TECHNICIAN, INFRASTRUCTURE ANALYST
--- NOTE | 2019-03-06 12:59 | PCM.PN.NEU ---
Subjective: NO issues overnight. Per patient her dizziness is better. CTA head/neck right ICA > 70% stenosis and left ICA 50-69% stenosis. Care discussed with nursing staff at bedside and hospitalist taking care of the patient. - Physical Exam General: Alert HEENT: Normocephalic Neck: Supple Lungs: Normal air movement Cardiovascular: Normal S1, Normal S2 Abdomen: Bowel Sounds Present Extremities: No cyanosis Neurological: - - Conscious, alert, AOA x3, CN II through XII grossly intact, no nystagmus, power 5 x 5 both upper and lower extremities, no sensory loss, no cerebellar signs, gait deferred, reflexes + B/L B/S/T/K/A Psych/Mental Status: Normal Affect Vital Signs Temp Pulse Resp BP Pulse Ox 98.6 F 71 16 169/82 H 97 03/06/19 08:07 03/06/19 11:34 03/06/19 08:07 03/06/19 11:34 03/06/19 08:07 Oxygen Delivery Method Room Air Weight: 73 kg Body Mass Index (BMI) 30.4 Intake and Output for Last 24 Hours 03/04/19 03/05/19 03/06/19 23:59 23:59 23:59 Intake Total 3909.17 / 3909.17 3778.34 / 3778.34 2110.42 / 2110.42 Output Total 1700 / 1700 6000 / 6000 1500 / 1500 Balance 2209.17 / 2209.17 -2221.66 / -2221.66 610.42 / 610.42 POC Glucose 03/06/19 03/05/19 03/05/19 06:26 20:59 16:47 POC Glucose 133 H 139 H 109 Medical Necessity - Tobacco Use Smoking Status: Never smoker Assessment/Plan All Active Problems Vertigo (Acute) Dizziness (Acute) The patient is a 69 year old F with PMH HTN, DM, osteoarthritis admitted with dizziness. Per patient the dizziness started about 2 days ago on 03/03/2019 and per patient the whole room started spinning she was nauseous and had difficulty in getting up or walking and she had to hold onto things. She denies any headaches at present, denies any visual disturbances or speech disturbances, focal motor weakness or sensory loss along with the dizziness. Per patient her dizziness got worse by movement movement of the head. Patient patient continues to have dizziness. She denies any new onset of neck pain or radicular symptoms. Per patient she lives alone, does not use a cane or a walker to ambulate, denies any frequent falls, and does not need any assistance for her ADLs. Per patient she has a history of bilateral cerumen impactions and has seen ENT in the past. Susan-Hallpike was positive for rotatory fatigable nystagmus in the left ear. MRI Brain done on admission reported not to show any acute stroke. Impression Dizziness likely peripheral etiology/BPPV Carotid stenosis- Right ICA > 70% stenosis, Left ICA 50-69% stenosis Plan ?MRI brain ported not to show any acute stroke ?CT angiogram head/neck report reviewed ?ASA 81 Po once daily. Bleeding risks discussed with patient in detail ?Pravachol 40 mg PO q hs. S/E discussed in detail with patient, per patient she had muscle cramps with other statins in the past. ?Vascular surgery consult ?Echocardiogram-pending ?Vestibular therapy/ENT consult ?On Antivert ?Better blood pressure control with a goal of blood pressure less than 130/80 mmHg, will defer to hospitalist team for further evaluation and management. ?PT/OT ?GI/DVT prophylaxis ?Fall precautions ?Further medical management per hospitalist team ?Follow-up with neurology as outpatient in 4 to 6 weeks ?Please call with questions if any ?Thank you for allowing us to participate in patient's current management This note is generated using [employer] dictation software. It may contain incorrect words, spellings and punctuation that were not noted in the review of the note prior to signing.
== END 2019-03-06 11:25 | disposition home or self-care (01) | DRG 149 ==
LOC: ED 15:54 → MS3 17:06
PROVIDERS: Admitting Provider Family Medicine; Emergency Provider Nurse Practitioner; Family Provider Internal Medicine; PCP Internal Medicine; Visit Provider Internal Medicine
DX: H81.10 Benign paroxysmal vertigo, unspecified ear (principal); H61.23 Impacted cerumen, bilateral; I10 Essential (primary) hypertension; E66.9 Obesity, unspecified; M15.9 Polyosteoarthritis, unspecified; Z68.30 Body mass index [BMI] 30.0-30.9, adult; Z79.84 Long term (current) use of oral hypoglycemic drugs; I65.23 Occlusion and stenosis of bilateral carotid arteries; E11.9 Type 2 diabetes mellitus 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s
CPT/HCPCS: 36415; 70450; 70496; 70498; 70553; 80048; 82962; 85025; 93005; 93306; 97161; 97166; 97530; 97802; 99285; A9575; J7030; Q9967; A4216; J2405

== ENCOUNTER → 2019-03-20 08:06 | Outpatient (CLI) | payer MEDICARE, SELFPAY ==
[2019-03-16 09:51] VITALS: BMI 30.4
--- NOTE | 2019-03-20 08:12 | CDU_ITS ---
Reason For Study: Carotid Stenosis Rt. Velocities/BP Lt. Velocities/BP Prox CCA 82/14 cm/sec. Prox CCA 78/13 cm/sec. Mid CCA 64/10 cm/sec. Mid CCA 78/16 cm/sec. Dist CCA 71/15 cm/sec. Dist CCA 77/15 cm/sec. Prox ICA 92/17 cm/sec. Prox ICA 97/20 cm/sec. Mid ICA 90/23 cm/sec. Mid ICA 93/20 cm/sec. Dist ICA 129/32 cm/sec. Dist ICA 157/39 cm/sec. Rt. ICA/CCA = 2.0. Lt. ICA/CCA = 2.0. Prox ECA 106 cm/sec. Prox ECA 144/7 cm/sec. Rt. Vert. 66/10 cm/sec. Lt. Vert. 66/14 cm/sec. Right Extracranial There is heterogeneous, irregular atherosclerotic plaque noted in the right common carotid artery. There is heterogeneous, irregular atherosclerotic plaque noted in the right internal carotid artery. The atherosclerotic plaque causes acoustic shadowing. There is heterogeneous, irregular atherosclerotic plaque noted in the right external carotid artery. Antegrade flow is noted in the right vertebral artery. Left Extracranial There is heterogeneous, irregular atherosclerotic plaque noted in the left common carotid artery. There is heterogeneous, irregular atherosclerotic plaque noted in the left internal carotid artery. There is heterogeneous, irregular atherosclerotic plaque noted in the left external carotid artery. Antegrade flow is noted in the left vertebral artery. Procedure Carotid Duplex 82012. Exam performed in department. Interpretation Summary Irregular plague right common carotid, proximal internal and external carotids. Plague shadowing proximal right internal carotid 50-69% stenosis distal right internal carotid <50% stenosis right external carotid Irregular plague left common carotid, proximal internal and external carotids 50-69% stenosis left internal carotid <50% stenosis left external carotid Patent and antegrade vertebrals bilaterally with <50% stenosis Ordering Physician: Thierno Michael Referring Physician: Miladis Foote Performed By: Althea Pacheco, CRUZ, RVT
== END ==
PROVIDERS: Family Provider Internal Medicine; PCP Internal Medicine; Referring Provider Surgery; Visit Provider Surgery
DX: R42 Dizziness and giddiness (principal)
CPT/HCPCS: 93880

== ENCOUNTER 2022-04-11 22:22 | Emergency (ER) | payer MEDICARE, SELFPAY ==
[2022-04-11 22:23] VITALS: BP 210/90; PULSE 66; RESP 18; TEMP 36.8; O2SAT 98; BMI 29.9
--- NOTE | 2022-04-11 22:39 | EKG12_ITS ---
Test Reason : DYSRHYTHMIA Blood Pressure : / mmHG Vent. Rate : 065 BPM Atrial Rate : 065 BPM P-R Int : 150 ms QRS Dur : 082 ms QT Int : 424 ms P-R-T Axes : 041 -21 092 degrees QTc Int : 440 ms Normal sinus rhythm Consider Left ventricular hypertrophy Nonspecific ST and T wave abnormality Abnormal ECG Confirmed by FLORENCIA IRVIN, CHRISTA ([id number]), assistant editor DELORES ARELLANO ([id number]) on 04/13/2022 9:29:47 AM Referred By: Confirmed By:CHRISTA DON MD
--- NOTE | 2022-04-11 22:39 | CT_ITS ---
STUDY: CT CERVICAL SPINE WITHOUT CONTRAST REASON FOR EXAM: Female, 72 years old. trauma RADIATION DOSAGE (If Supplied By Facility): CTDIvol = ( 13.19 ) mGy, DLP = ( 231.40 ) mGycm TECHNIQUE: High resolution transaxial imaging was performed without contrast material. Sagittal and coronal images were reconstructed. Individualized dose optimization techniques were used for this CT. COMPARISON: None FINDINGS: ALIGNMENT: No subluxation. MINERALIZATION: Normal. VERTEBRAL BODIES: No fracture or acute abnormality. DISC SPACES: Mild narrowing with osteophytes most pronounced C5-C7. POSTERIOR ELEMENTS: Mild facet arthropathy at several levels. SPINAL CANAL: Maintained. PARASPINAL SOFT TISSUES: Unremarkable. OTHER: None. CT/Spine Cervical without Contras IMPRESSION: No evidence of fracture or subluxation. Degenerative changes. Electronically Signed: Vandana Chiang MD at 23:41 EDT ,
--- NOTE | 2022-04-11 22:39 | CT_ITS ---
STUDY: CT HEAD W/O CONTRAST INJECTION REASON FOR EXAM: Female, 72 years old. trauma RADIATION DOSAGE (If Supplied By Facility): CTDIvol = ( 44.99 ) mGy, DLP = ( 829.85 ) mGycm TECHNIQUE: Transaxial CT imaging of the brain was performed without administration of intravenous contrast material. Individualized dose optimization techniques were used for this CT. COMPARISON: CT head 03/03/2019. FINDINGS: BRAIN: No acute bleed. No edema. Mild decreased attenuation in the periventricular white matter bilaterally. Old lacunar infarct in the right basal ganglia. Moser-white matter differentiation is maintained. Arterial calcifications. VENTRICLES AND SULCI: The ventricles are not dilated. The sulci are prominent. EXTRA-AXIAL: No hemorrhage, fluid collection, or mass. CALVARIUM / SKULL BASE: Unremarkable. FACE/SINUSES: Unremarkable. SOFT TISSUES: Unremarkable. CT/Brain/Head without Contrast IMPRESSION: No evidence of acute intracranial injury. Chronic microvascular ischemic disease. Electronically Signed: Vandana Chiang MD at 23:37 EDT ,
--- NOTE | 2022-04-11 22:44 | EX.ED.DYSGE1 ---
HPI History of Present Illness Chief Complaint: Weakness Informant: patient, spouse/S.O. and EMS Narrative Narrative: 72-year-old female presenting to the emergency room following a syncopal episode while at the [facility]. She was checking out using the self checkout and was on her last item which was apples when suddenly she fell down. Her credit product analyst noted that she looked pale and sweaty when he helped her up. Bystanders stated that she hit her head on the ground. She notes pain in her low back as well as her upper neck and head. She denies any chest pain or palpitations. She denies any abdominal pain. She notes that she has never passed out before. She is a diabetic and has subsequently been drinking orange juice. Blood sugar for EMS was 88. [facility] Medical History Back pain Cardiac murmur Carotid stenosis, bilateral Carotid stenosis, bilateral Cerumen impaction Diabetes Dizziness GERD (gastroesophageal reflux disease) HTN (hypertension) Osteoarthritis Vertigo Home Medications cholecalciferol (vitamin D3) 1,250 mcg (50,000 unit) capsule 1 tab PO QWEEK 03/03/19 [History Last Taken Unknown] glimepiride 4 mg tablet 1 tab PO DAILY 03/03/19 [History Last Taken Unknown] indapamide 1.25 mg tablet 1.25 mg PO DAILY 03/03/19 [History Last Taken Unknown] metoprolol tartrate 50 mg tablet 50 mg PO BID 03/03/19 [History Last Taken Unknown] naproxen 500 mg tablet 500 mg PO BID PRN Pain 03/03/19 [History Last Taken Unknown] ondansetron 4 mg disintegrating tablet 4 mg PO Q8H PRN PRN Nausea #6 tabs 03/03/19 [Rx Last Taken Unknown] tramadol 50 mg tablet 50 mg PO DAILY 03/03/19 [History Last Taken Unknown] Carbamide Peroxide [Ear Drops] 15 ml OT BID #150 mL 03/06/19 [Rx Last Taken Unknown] amlodipine 10 mg tablet 10 mg PO DAILY #60 tabs 03/06/19 [Rx Last Taken Unknown] meclizine 25 mg tablet 25 mg PO Q6H 03/06/19 [Rx Last Taken Unknown] Allergy/AdvReac Type Severity Reaction Status Date / Time furosemide [From Lasix] Allergy Hives Verified 04/11/22 22:32 Sulfa (Sulfonamide Allergy Hives Verified 04/11/22 22:32 Antibiotics) Surgical History History of dilation and curettage History of partial hysterectomy Social History Smoking Status: Never smoker ROS ROS ED Constitutional Constitutional ED: Denies chills or weight loss Eyes Eyes: Denies change in vision or diplopia ENT ENT ED: Denies ear pain, rhinorrhea or sore throat Cardiovascular Cardiovascular: Reports other Details: Syncope ; Denies chest pain, orthopnea, palpitations or racing heartbeat Respiratory/Chest Respiratory/Chest: Denies cough, dyspnea or orthopnea Gastrointestinal Gastrointestinal: Denies abdominal pain, diarrhea, nausea or vomiting Genitourinary Genitourinary ED: Denies dysuria, hematuria or urinary frequency Musculoskeletal Musculoskeletal: Reports back pain and neck pain; Denies arthralgias or myalgias Integumentary Denies abscess or rash Neurologic Neurologic: Reports headache(s); Denies weakness Psychiatric Psychiatric: Denies anxiety, depression, suicidal ideation or suicidal thoughts Endocrine Endocrinology: Denies polydipsia, polyphagia or polyuria Allergic/Immunologic Allergic/Immunologic ED: Denies mouth swelling, tongue swelling or urticaria EXAM Physical Exam Const Vital Signs: 04/11/22 22:23 04/11/22 22:29 Temperature 98.2 F Temperature Source Temporal Pulse Rate 66 Respiratory Rate 18 Respiratory Effort Normal Respiratory Pattern Normal Blood Pressure 210/90 H Blood Pressure Mean 130 Pulse Ox 98 Oxygen Delivery Method Room Air Positive well nourished and well developed General Appearance ED: well developed HEENT Reports normocephalic, head/scalp atraumatic and moist mucous membranes HEENT Narrative: I do not appreciate any head trauma/hematomas. Eyes PERRL and EOMs intact bilaterally Neck no lymphadenopathy, supple and no JVD Resp normal respiratory effort and clear to auscultation bilaterally Cardio regular rate, regular rhythm and no murmurs GI normal to inspection, nondistended, normoactive bowel sounds and non-tender Palpation: soft Back/Spine no CVA tenderness and normal ROM Extremity normal to inspection General Extremety ED: Negative for edema General Extremity: Negative for edema Neuro oriented x3 and CN's II-XII intact bilaterally Sensorium / Orientation: alert Motor Exam: strength 5/5 throughout Psych mental status grossly normal Mood & Affect: Negative for depressed or tearful Skin no rashes or lesions noted and no wounds MDM MDM MDM Narrative Medical decision making narrative: CBC shows a hemoglobin 11.8 with a platelet count of 192. Troponin is 19. My interpretation of the chest x-ray is no acute process. CT of the brain and cervical spine did not demonstrate anything acute. The patient was unable to tolerate further radiology imaging of her lower spine due to anxiety. Patient's had no events on the monitor. Her blood pressure has come down. At this point I do not have a clear etiology for her syncope but I am not seeing anything obvious cardiac in nature. Patient will be discharged home with supportive care in the company of her significant other Lab Data Attestation: I reviewed the patient's lab results. Labs: Laboratory Results - last 24 hr 04/11/22 04/11/22 22:58 22:58 WBC 6.5 RBC 3.92 L Hgb 11.8 L Hct 36.4 L MCV 92.9 MCH 30.1 MCHC 32.4 RDW Std Deviation 45.2 H RDW Coeff of Orjelio 13.4 Plt Count 192 MPV 10.0 Immature Gran % (Auto) 0.500 Neut % (Auto) 69.0 Lymph % (Auto) 20.3 Frio % (Auto) 7.6 Eos % (Auto) 2.0 Baso % (Auto) 0.6 Absolute Neuts (auto) 4.5 Absolute Lymphs (auto) 1.33 Nucleated RBC % 0 Sodium 141 Potassium 4.2 Chloride 106 Carbon Dioxide 29.0 Anion Gap 6 BUN 26 H Creatinine 1.27 H Estim Creat Clear Calc 29.18 Est GFR (MDRD) Af Amer 53 L Est GFR (MDRD) Non-Af 44 L BUN/Creatinine Ratio 20.5 H Glucose 192 H Calcium 9.5 Troponin I High Sens 19 Radiography Diagnostic Testing: Clinical Impression(s) from Imaging Studies Brain CT 04/11/22 22:39 IMPRESSION: No evidence of acute intracranial injury. Chronic microvascular ischemic disease. Electronically Signed: Vandana Chiang MD at 23:37 EDT , Cervical Spine CT 04/11/22 22:39 IMPRESSION: No evidence of fracture or subluxation. Degenerative changes. Electronically Signed: Vandana Chiang MD at 23:41 EDT , Chest X-Ray 04/11/22 23:17 IMPRESSION: No evidence of active intrathoracic disease. Electronically Signed: Vandana Chiang MD at 23:44 EDT , Discharge Plan Triage Chief Complaint: Weakness ED Provider: Dave Hill Dx/Rx/DC Orders Clinical Impression: Syncope and collapse, Head injury, Acute lumbar myofascial strain Instructions: ED Fainting, Uncertain Cause Prescriptions: No Action tramadol 50 MG tablet 50 mg PO DAILY glimepiride 4 MG tablet 1 tab PO DAILY metoprolol tartrate 50 MG tablet 50 mg PO BID indapamide 1.25 MG tablet 1.25 mg PO DAILY naproxen 500 MG tablet 500 mg PO BID PRN (Reason: Pain) cholecalciferol (vitamin D3) 50,000 UNIT capsule 1 tab PO QWEEK ondansetron 4 MG tablet 4 mg PO Q8H PRN PRN (Reason: Nausea) Qty: 6 0RF meclizine 25 MG tablet 25 mg PO Q6H 0RF amlodipine 10 MG tablet 10 mg PO DAILY Qty: 60 0RF Carbamide Peroxide [Ear Drops] 15 ML drops 15 ml OT BID Qty: 150 0RF Primary Care Provider: Miladis Foote Referrals: Miladis Foote MD [Primary Care Provider] - 1 Week Disposition Disposition: Home, Self Care
--- NOTE | 2022-04-11 23:17 | RAD_ITS ---
STUDY: X-RAY CHEST REASON FOR EXAM: Female, 72 years old. syncope Pt shopping at [employer], sudden onset weakness and passed out. Pt cannot remember fainting, family confirms pt hit head. Pt feeling weak. TECHNIQUE: AP portable. 11:16 PM. COMPARISON: 05/08/2017. FINDINGS: LUNGS: No consolidation. No pneumothorax. MEDIASTINUM: Aorta is tortuous and atherosclerotic. CARDIAC SILHOUETTE: Not enlarged. BONES AND SOFT TISSUES: Degenerative changes of the dorsal spine. RAD/Chest 1 View (Portable) IMPRESSION: No evidence of active intrathoracic disease. Electronically Signed: Vandana Chiang MD at 23:44 EDT ,
[2022-04-11 23:27] LABS: Anion Gap 6 (5-15); BUN 26 mg/dL (7-18); BUN/Creat Ratio 20.5 RATIO (10-20); Calcium,Total 9.5 mg/dL (8.5-10.1); Chloride 106 mmol/L (98-107); Creatinine, Serum 1.27 mg/dL (0.55-1.02); EST Glomerular Filtration Rate 44 mL/min (>60); Est Glom Filt Rate - Afr Amer 53 mL/min (>60); Estimated Creatinine Clearance 29.18 ml/min; Glucose 192 mg/dL (74-106); Potassium 4.2 mmol/L (3.5-5.1); Sodium Level 141 mmol/L (136-145); Troponin-I HS 19 pg/mL (3.0-54.0)
[2022-04-11 23:53] LABS: Absolute Lymphocyte Count 1.33 X10^3/uL (0.83-4.51); Absolute Neutrophil Count 4.5 X10^3/uL (2.0-7.7); Basophil# 0.04 X10^3/uL; Basophil% 0.6 % (0-1); Eosinophil# 0.13 X10^3/uL; Hematocrit 36.4 % (37-47); Hemoglobin 11.8 g/dL (12.0-15.0); Lymphocyte # 1.33 X10^3/ul (0.83-4.51); Lymphocyte % 20.3 % (19-41); Mean Corp Hgb Conc 32.4 g/dL (32-36); Mean Corpuscular Hgb 30.1 pg (27.0-32.0); Mean Corpuscular Volume 92.9 fL (81-99); Monocyte% 7.6 % (0-10); NRBC Flagged by Analyzer 0 % (0-5); Neutrophil # 4.51 X10^3/uL (2.7-7.7); Platelet Count 192 K/mm3 (150-450); RBC Distribution Width CV 13.4 % (11.6-14.6); RBC Distribution Width SD 45.2 fl (35.1-43.9); Red Blood Count 3.92 M/mm3 (4.2-5.4); White Blood Count 6.5 K/mm3 (4.4-11.0)
[2022-04-12 00:20] VITALS: BP 157/80; PULSE 66; RESP 18; TEMP 36.8; O2SAT 97
== END 2022-04-12 00:25 | disposition home or self-care (01) ==
PROVIDERS: Emergency Provider Emergency Medicine; PCP Internal Medicine; Visit Provider Emergency Medicine
DX: S09.90XA Unspecified injury of head, initial encounter (principal); E11.9 Type 2 diabetes mellitus 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s; R55 Syncope and collapse; I10 Essential (primary) hypertension; S39.012A Strain of muscle, fascia and tendon of lower back, initial encounter; F41.9 Anxiety disorder, unspecified; R53.1 Weakness; W19.XXXA Unspecified fall, initial encounter
CPT/HCPCS: 70450; 71045; 72125; 80048; 84484; 85025; 93005; 99285; A4216

== ENCOUNTER 2022-04-22 21:49 | Emergency (ER) | payer MEDICARE, SELFPAY ==
[2022-04-22 21:50] VITALS: BP 197/85; PULSE 102; RESP 17; TEMP 36.7; O2SAT 97; BMI 29.6
--- NOTE | 2022-04-22 21:56 | EKG12_ITS ---
Test Reason : CP Blood Pressure : / mmHG Vent. Rate : 084 BPM Atrial Rate : 084 BPM P-R Int : 152 ms QRS Dur : 080 ms QT Int : 374 ms P-R-T Axes : 049 -08 106 degrees QTc Int : 441 ms Normal sinus rhythm Nonspecific ST and T wave abnormality Abnormal ECG Confirmed by RODNEY IRVIN, HI ([id number]), book editor DELORES ARELLANO ([id number]) on 04/26/2022 11:35:44 AM Referred By: Confirmed By:HI STEVENS MD
--- NOTE | 2022-04-22 22:14 | EX.ED.DYSGE1 ---
HPI History of Present Illness Chief Complaint: Chest Pain Narrative Narrative: Patient is a 72-year-old female with past medical history of hypertension osteoarthritis and diabetes. She states this evening they went and had [employer] for dinner and then stopped and got pizza. She states she was driving home when she developed some midsternal chest discomfort which radiated up towards her neck. She states there was no nausea vomiting diaphoresis or shortness of breath associated with this. She states she became anxious and folic she could not drive and therefore pulled into the EMS station and had them evaluate her and she was brought in for further treatment. Patient states that she was given 1 sublingual nitro and multiple baby aspirin. She states she has not had her nighttime blood pressure medication at this time. [facility] Medical History Back pain Cardiac murmur Carotid stenosis, bilateral Carotid stenosis, bilateral Cerumen impaction Diabetes Dizziness GERD (gastroesophageal reflux disease) HTN (hypertension) Osteoarthritis Vertigo Home Medications cholecalciferol (vitamin D3) 1,250 mcg (50,000 unit) capsule 1 tab PO QWEEK 03/03/19 [History Last Taken Unknown] glimepiride 4 mg tablet 1 tab PO DAILY 03/03/19 [History Last Taken Unknown] indapamide 1.25 mg tablet 1.25 mg PO DAILY 03/03/19 [History Last Taken Unknown] metoprolol tartrate 50 mg tablet 50 mg PO BID 03/03/19 [History Last Taken Unknown] naproxen 500 mg tablet 500 mg PO BID PRN Pain 03/03/19 [History Last Taken Unknown] ondansetron 4 mg disintegrating tablet 4 mg PO Q8H PRN PRN Nausea #6 tabs 03/03/19 [Rx Last Taken Unknown] tramadol 50 mg tablet 50 mg PO DAILY 03/03/19 [History Last Taken Unknown] Carbamide Peroxide [Ear Drops] 15 ml OT BID #150 mL 03/06/19 [Rx Last Taken Unknown] amlodipine 10 mg tablet 10 mg PO DAILY #60 tabs 03/06/19 [Rx Last Taken Unknown] meclizine 25 mg tablet 25 mg PO Q6H 03/06/19 [Rx Last Taken Unknown] Allergy/AdvReac Type Severity Reaction Status Date / Time furosemide [From Lasix] Allergy Hives Verified 11/11/22 21:54 Sulfa (Sulfonamide Allergy Hives Verified 04/22/22 21:54 Antibiotics) Surgical History History of dilation and curettage History of partial hysterectomy Social History Smoking Status: Never smoker ROS ROS ED Constitutional Constitutional ED: Denies chills or fever(s) ENT ENT ED: Denies sore throat Cardiovascular Cardiovascular: Reports chest pain; Denies palpitations or racing heartbeat Respiratory/Chest Respiratory/Chest: Denies cough or dyspnea Gastrointestinal Gastrointestinal: Denies abdominal pain, diarrhea, nausea or vomiting Genitourinary Genitourinary ED: Denies dysuria Musculoskeletal Musculoskeletal: Denies myalgias Integumentary Denies rash Neurologic Neurologic: Denies headache(s) Psychiatric Psychiatric: Reports anxiety Hematologic/Lymphatic Hematologic/Lymphatic: Denies easy bleeding or easy bruising EXAM Physical Exam Const Vital Signs: 04/22/22 21:50 04/22/22 22:22 04/22/22 22:30 Temperature 98.1 F Temperature Source Temporal Pulse Rate 102 H 76 78 Respiratory Rate 17 Blood Pressure 197/85 H 167/79 H 145/71 H Blood Pressure Mean 122 Pulse Ox 97 Oxygen Delivery Method Room Air 04/22/22 22:50 04/22/22 23:52 04/23/22 00:28 Temperature Temperature Source Pulse Rate 70 61 74 Respiratory Rate 16 15 Blood Pressure 140/70 H 159/69 H 149/70 H Blood Pressure Mean 93 99 96 Pulse Ox 98 98 Oxygen Delivery Method Room Air Room Air Positive well nourished and well developed General Appearance ED: well developed HEENT Reports moist mucous membranes Eyes PERRL and EOMs intact bilaterally Neck supple Neck Narrative: No carotid bruit noted No crepitance palpated and no pain with external ambulation of the thyroid cartilage Chest Wall palpation of chest normal Resp normal respiratory effort and clear to auscultation bilaterally Cardio regular rate and regular rhythm Rate: other Other Details: Radial pulses are +2-4 bilaterally are equal and symmetric Carotid pulses are equal and symmetric as well GI non-tender and non-distended GI Narrative: No voluntary guarding or rigidity no pulsatile mass Auscultation: normoactive bowel sounds Palpation: soft Extremity normal to inspection Extremity Narrative: No asymmetric edema no pitting edema negative Homans' sign bilaterally Neuro oriented x3 and CN's II-XII intact bilaterally Sensorium / Orientation: alert Psych Psych Narrative: Patient has a nervous/anxious affect Skin no rashes or lesions noted MDM MDM MDM Narrative Medical decision making narrative: Patient presented to the ER hypertensive but otherwise with stable vitals and a nonfocal exam. She reported developing mild midsternal chest discomfort radiating up into her neck after eating. I felt that this is most likely related to some type of GERD and then exacerbated by anxiety. Patient however does have risk factors of cardiac disease and secondary to this a cardiac work-up was obtained. EKG is sinus rhythm and similar to the one that was obtained 11 days ago. Initial troponin was 14 and delta only went up to 3 points to 17 which is not clinically significant and goes against cardiac event. On reevaluation patient had resolution of her chest discomfort and improvement of her blood pressure. Therefore at this time with resolution of chest pain and negative cardiac work-up I do not feel there is need for further evaluation and patient is otherwise safe for discharge Lab Data Attestation: I reviewed the patient's lab results. Labs: Laboratory Results - last 24 hr 04/22/22 04/22/22 04/23/22 22:15 22:15 00:00 WBC 5.5 RBC 3.90 L Hgb 11.6 L Hct 36.1 L MCV 92.6 MCH 29.7 MCHC 32.1 RDW Std Deviation 45.0 H RDW Coeff of Rojelio 13.3 Plt Count 173 MPV 10.4 Immature Gran % (Auto) 0.400 Neut % (Auto) 62.0 Lymph % (Auto) 26.9 Rich % (Auto) 8.1 Eos % (Auto) 2.2 Baso % (Auto) 0.4 Absolute Neuts (auto) 3.4 Absolute Lymphs (auto) 1.47 Nucleated RBC % 0 Sodium 141 Potassium 3.8 Chloride 106 Carbon Dioxide 27.0 Anion Gap 8 BUN 30 H Creatinine 1.33 H Estim Creat Clear Calc 27.87 Est GFR (MDRD) Af Amer 51 L Est GFR (MDRD) Non-Af 42 L BUN/Creatinine Ratio 22.6 H Glucose 304 H Calcium 9.1 Magnesium 2.3 Troponin I High Sens 14 17 Radiography Diagnostic Testing: Clinical Impression(s) from Imaging Studies Chest X-Ray 04/22/22 22:45 IMPRESSION: Left lung base atelectasis. Electronically Signed: Vikash Manrique MD at 23:05 EST , 2 view chest x-ray as interpreted by the emergency medicine physician reveals mild left lung atelectasis without infiltrate pneumothorax pleural effusion or widening of the mediastinum Discharge Plan Triage Chief Complaint: Chest Pain ED Provider: Nabor Santos Dx/Rx/DC Orders Clinical Impression: Nonspecific chest pain, HTN (hypertension) Instructions: Hypertension Dc, ED Chest Pain, Uncertain Cause Prescriptions: No Action tramadol 50 MG tablet 50 mg PO DAILY glimepiride 4 MG tablet 1 tab PO DAILY metoprolol tartrate 50 MG tablet 50 mg PO BID indapamide 1.25 MG tablet 1.25 mg PO DAILY naproxen 500 MG tablet 500 mg PO BID PRN (Reason: Pain) cholecalciferol (vitamin D3) 50,000 UNIT capsule 1 tab PO QWEEK ondansetron 4 MG tablet 4 mg PO Q8H PRN PRN (Reason: Nausea) Qty: 6 0RF meclizine 25 MG tablet 25 mg PO Q6H 0RF amlodipine 10 MG tablet 10 mg PO DAILY Qty: 60 0RF Carbamide Peroxide [Ear Drops] 15 ML drops 15 ml OT BID Qty: 150 0RF Primary Care Provider: Miladis Foote Referrals: Miladis Foote MD [Primary Care Provider] - Activity Restrictions/Additional Instructions: Please continue all of your medication as previously directed. Your work-up today does not show any signs of heart damage or heart attack. Please return to the ER should you have any further concerns Disposition Disposition: Home, Self Care
[2022-04-22 22:22] VITALS: BP 167/79; PULSE 76
[2022-04-22] MEDS: Nitroglycerin SL (ED/IMG/CATH) 0.4 MG TABLET SL ×2 (22:22→22:30)
[2022-04-22 22:24] LABS: Absolute Lymphocyte Count 1.47 X10^3/uL (0.83-4.51); Absolute Neutrophil Count 3.4 X10^3/uL (2.0-7.7); Basophil# 0.02 X10^3/uL; Basophil% 0.4 % (0-1); Eosinophil# 0.12 X10^3/uL; Eosinophils% 2.2 % (0-5); Hematocrit 36.1 % (37-47); Hemoglobin 11.6 g/dL (12.0-15.0); Lymphocyte # 1.47 X10^3/ul (0.83-4.51); Lymphocyte % 26.9 % (19-41); Mean Corp Hgb Conc 32.1 g/dL (32-36); Mean Corpuscular Hgb 29.7 pg (27.0-32.0); Mean Corpuscular Volume 92.6 fL (81-99); Mean Platelet Vol. 10.4 fl (6.2-12.0); Monocyte# 0.44 X10^3/uL; Monocyte% 8.1 % (0-10); NRBC Flagged by Analyzer 0 % (0-5); Neutrophil # 3.39 X10^3/uL (2.7-7.7); Platelet Count 173 K/mm3 (150-450); RBC Distribution Width CV 13.3 % (11.6-14.6); White Blood Count 5.5 K/mm3 (4.4-11.0)
[2022-04-22 22:30] VITALS: BP 145/71; PULSE 78
--- NOTE | 2022-04-22 22:45 | RAD_ITS ---
STUDY: X-RAY CHEST REASON FOR EXAM: Female, 72 years old. Chest pain TECHNIQUE: PA and lateral views of the chest. COMPARISON: 04/11/2022 FINDINGS: Left lung base atelectasis. The right lung appears clear. There is no demonstrated pleural abnormality. Normal size heart. Normal mediastinum and damion. Normal visualized pulmonary arteries. There is atherosclerotic calcification of the aortic arch with tortuosity. There is no demonstrated abnormality of the visualized soft tissue structures of the upper abdomen. RAD/Chest PA and Lateral IMPRESSION: Left lung base atelectasis. Electronically Signed: Vikash Manrique MD at 23:05 EST ,
[2022-04-22 22:50] VITALS: BP 140/70; PULSE 70
[2022-04-22 22:51] LABS: Anion Gap 8 (5-15); BUN 30 mg/dL (7-18); BUN/Creat Ratio 22.6 RATIO (10-20); Calcium,Total 9.1 mg/dL (8.5-10.1); Chloride 106 mmol/L (98-107); Creatinine, Serum 1.33 mg/dL (0.55-1.02); EST Glomerular Filtration Rate 42 mL/min (>60); Est Glom Filt Rate - Afr Amer 51 mL/min (>60); Estimated Creatinine Clearance 27.87 ml/min; Glucose 304 mg/dL (74-106); Magnesium 2.3 mg/dL (1.6-2.6); Potassium 3.8 mmol/L (3.5-5.1); Sodium Level 141 mmol/L (136-145); Troponin-I HS 14 pg/mL (3.0-54.0)
[2022-04-22 23:52] VITALS: BP 159/69; PULSE 61; RESP 16; O2SAT 98
[2022-04-23 00:25] LABS: Troponin-I HS 17 pg/mL (3.0-54.0)
[2022-04-23 00:28] VITALS: BP 149/70; PULSE 74; RESP 15; O2SAT 98
== END 2022-04-23 00:48 | disposition home or self-care (01) ==
PROVIDERS: Emergency Provider Emergency Medicine; PCP Internal Medicine; Visit Provider Emergency Medicine
DX: R07.9 Chest pain, unspecified (principal); E11.9 Type 2 diabetes mellitus 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s; F41.9 Anxiety disorder, unspecified; I10 Essential (primary) hypertension
CPT/HCPCS: 71046; 80048; 83735; 84484; 85025; 93005; 99285; A4216

== ENCOUNTER 2022-08-06 03:29 | Inpatient (IN) | payer MEDICARE, SELFPAY ==
[2022-08-06] VITALS (15 sets, daily range): BP systolic 137–212; BP diastolic 57–93; PULSE 69–95; RESP 15–18; TEMP 36.2–37.2; O2SAT 91–99; BMI 29.5; BMI 28.1
--- NOTE | 2022-08-06 03:50 | CT_ITS ---
We are attempting to reach an attending provider to discuss findings. An addendum with communication details will be sent when the communication is complete. INDICATION: Abdominal pain, nausea after eating. EXAMINATION: CT Abdomen And Pelvis W/ Contrast Injection TECHNIQUE: Helically acquired images were obtained of the abdomen and pelvis following IV contrast. 2-D reconstructions reviewed. A radiation dose optimization technique was used for this scan. IV Contrast dosage and agent: 100 cc [id number] Oral contrast: None. COMPARISON: None. FINDINGS: LOWER CHEST: No acute findings within the imaged lung bases. Heart size within normal limits. Prominent coronary arterial and mitral annular calcifications noted. Small hiatal hernia present. LIVER: Homogeneous. No concerning lesion. GALLBLADDER AND BILIARY TREE: No calcified gallstones identified. No gallbladder wall edema demonstrated. No significant biliary ductal dilation. PANCREAS: No discrete mass or peripancreatic edema. SPLEEN: Normal size without focal cystic or solid mass. ADRENAL GLANDS: Unremarkable. KIDNEYS AND URETERS: Normal renal size and position. No hydronephrosis. There are few subcentimeter simple-appearing renal cysts requiring no additional follow-up. No concerning renal lesion detected. PERITONEUM: Scattered small volume ascites, most prominent within lower abdomen. No free air or abscess. RETROPERITONEUM: No retroperitoneal mass or pathologic fluid collection. BOWEL: Normal appendix is lateral to cecum within right lower quadrant. There are multiple dilated loops of small bowel within lower abdomen with adjacent mesenteric edema and mesenteric ascites. There is abrupt transition from dilated to decompressed small bowel within midline upper pelvis (series 2 axial images 85-90). Distal small bowel is decompressed. Left hemicolon is partially decompressed. No bowel pneumatosis detected. Small amount of high attenuation fluid within distal gastric lumen and proximal duodenum, presumed small amount of ingested radiographic contrast or antacid medication. Follow-up as clinically warranted if concern for upper GI hemorrhage. LYMPH NODES: No enlarged mesenteric or retroperitoneal lymph nodes. VESSELS: Generalized atherosclerosis with no abdominal aortic aneurysm. URINARY BLADDER: Unremarkable as visualized. REPRODUCTIVE ORGANS: Status post hysterectomy. No pelvic mass. ABDOMINAL WALL: No acute findings or significant hernia defect. BONES: Multilevel degenerative changes along spine with mild lumbar levoscoliosis. CT/Abdomen/Pelvis W IV Cont ONLY IMPRESSION: 1. Early high-grade distal mechanical small bowel obstruction with secondary mesenteric edema and small volume ascites. Recommend surgical consultation. Obstruction possibly secondary to focal adhesion or stricture. 2. Small amount of high attenuation fluid within distal gastric lumen and proximal duodenum, presumed small amount of ingested radiographic contrast or antacid medication. Follow-up as clinically warranted if concern for upper GI hemorrhage. 3. Other nonurgent findings within body of report. Electronically Signed: Mateo Greenfield MD at 5:25 EST ,
--- NOTE | 2022-08-06 03:51 | ED.VIS.GI ---
HPI HPI - GI History of Present Illness Chief Complaint: Abd Pain Informant: patient Abdominal Pain/Flank Pain Onset: Today Context: Sudden Onset Timing: Intermittent Quality: Sharp and Stabbing Location: Diffuse Current Severity: Mild Maximum Severity: Moderate Worsened by: Nothing Relieved by: Nothing Nausea/Vomiting/Emesis GI Symptom: Negative for Nausea or Vomiting Diarrhea/Melena/Hematochezia GI Symptom: Negative for Diarrhea, Melena or Hematochezia Associated Symptoms Associated Symptoms: Negative for Dysuria or Frequency Narrative Narrative: 72-year-old female history of prior hysterectomy. No other abdominal surgeries. States about 3 hours ago she had sudden onset of intermittent sharp stabbing periumbilical and diffuse abdominal pain. No prior history. No back or chest pain. No nausea, vomiting or diarrhea. Has had normal bowel movement in the last 2 days. Denies any dysuria. No fever. No melena. No significant weight loss. No falls or abdominal trauma. No prior similar pain. Nothing particular makes it better or worse. She was brought in by squad. She was treated with pain medication prior to arrival. Prior similar symptoms: No Recent Illness/Hospitalization: No PFSH PFS Medical History Cardiac murmur Carotid stenosis, bilateral Diabetes GERD (gastroesophageal reflux disease) HTN (hypertension) Osteoarthritis Vertigo Home Medications cholecalciferol (vitamin D3) 1,250 mcg (50,000 unit) capsule 1 tab PO QWEEK 03/03/19 [History Last Taken Unknown] glimepiride 4 mg tablet 1 tab PO DAILY 03/03/19 [History Last Taken Unknown] indapamide 1.25 mg tablet 1.25 mg PO DAILY 03/03/19 [History Last Taken Unknown] metoprolol tartrate 50 mg tablet 50 mg PO BID 03/03/19 [History Last Taken Unknown] naproxen 500 mg tablet 500 mg PO BID PRN Pain 03/03/19 [History Last Taken Unknown] ondansetron 4 mg disintegrating tablet 4 mg PO Q8H PRN PRN Nausea #6 tabs 03/03/19 [Rx Last Taken Unknown] tramadol 50 mg tablet 50 mg PO DAILY 03/03/19 [History Last Taken Unknown] Carbamide Peroxide [Ear Drops] 15 ml OT BID #150 mL 03/06/19 [Rx Last Taken Unknown] amlodipine 10 mg tablet 10 mg PO DAILY #60 tabs 03/06/19 [Rx Last Taken Unknown] meclizine 25 mg tablet 25 mg PO Q6H 03/06/19 [Rx Last Taken Unknown] Allergy/AdvReac Type Severity Reaction Status Date / Time furosemide [From Lasix] Allergy Hives Verified 08/06/22 03:36 Sulfa (Sulfonamide Allergy Hives Verified 08/06/22 03:36 Antibiotics) Family History (Updated 08/06/22 @ 06:[address] Susan Isidro MD) Mother Heart disease Hypertension Diabetes Father Heart disease Hypertension Diabetes Surgical History History of dilation and curettage History of partial hysterectomy Social History household members: none Smoking Status: Never smoker alcohol intake: never substance use type: does not use ROS ROS ED ROS Narrative Abdominal pain. Review of Systems ROS Unobtainable: Denies due to encephalopathy Constitutional Constitutional ED: Denies chills or fever(s) ENT ENT ED: Denies ear pain Cardiovascular Cardiovascular: Denies chest pain or palpitations Respiratory/Chest Respiratory/Chest: Denies cough or dyspnea Gastrointestinal Gastrointestinal: Reports abdominal pain; Denies constipation, diarrhea, melena, nausea or vomiting Genitourinary Genitourinary ED: Denies dysuria or hematuria Musculoskeletal Musculoskeletal: Denies arthralgias Integumentary Denies abscess Neurologic Neurologic: Denies headache(s) Psychiatric Psychiatric: Denies anxiety Endocrine Endocrinology: Denies polydipsia Hematologic/Lymphatic Hematologic/Lymphatic: Denies easy bleeding Allergic/Immunologic Allergic/Immunologic ED: Denies mouth swelling or tongue swelling EXAM Physical Exam Narrative Exam Narrative: 72 female vital signs are stable afebrile. Initial blood pressure is elevated 212/76. She does not look septic or toxic. At time she is pain-free at no time she is doubled over with abdominal pain. H EENT exam unremarkable. Neck nontender. Lungs clear to auscultation bilaterally. Heart regular rhythm rate about 75 no murmur. Chest wall nontender. Abdomen soft. Diffusely tender. No hernia or mass. No signs of obstruction. No localizing tenderness to the right upper or lower quadrant diffusely tender. No hernia or pulsatile mass. No signs of abdominal trauma. Moving all 4 extremities. Nontender no edema. Back nontender. Neurologically she is awake and alert moving all 4 extremities. Answering questions and following commands. Const Vital Signs: 08/06/22 03:30 08/06/22 03:35 08/06/22 05:27 Temperature 97.6 F L Temperature Source Oral Pulse Rate 76 Respiratory Rate 15 Blood Pressure 212/76 H 212/76 H Blood Pressure Mean 121 121 Pulse Ox 96 91 Oxygen Delivery Method Room Air Room Air 08/06/22 06:00 Temperature 97.2 F L Temperature Source Temporal Pulse Rate 74 Respiratory Rate 18 Blood Pressure 162/75 H Blood Pressure Mean 104 Pulse Ox 97 Oxygen Delivery Method Room Air Positive well nourished and well developed; Negative for obese, cachectic, contractures or unkempt General Appearance ED: well developed and NAD; Negative for unkempt, cachectic, contractures or pallor Nutritional Appearance: Negative for cachectic or obese HEENT Reports moist mucous membranes normocephalic and atraumatic; Negative for trauma or tenderness Eyes PERRL and EOMs intact bilaterally General Eye ED: Negative for pale conjunctiva, scleral icterus or other Neck no lymphadenopathy, supple and no JVD General: Negative for tenderness Carotids: Negative for other Resp normal respiratory effort and clear to auscultation bilaterally Effort and Inspection: Negative for respiratory distress Auscultation: Negative for rales, rhonchi or wheezes Cardio regular rate, regular rhythm, S1 normal heart sound, S2 normal heart sound and no murmurs Rate: Negative for bradycardia or tachycardic Rhythm: Negative for abnormal rhythm GI non-distended and no masses; Negative for non-tender Inspection: Negative for abdominal distention Auscultation: normoactive bowel sounds Palpation: soft and tender; Negative for guarding, rigid, hepatomegaly, splenomegaly, hernia, mass, pulsatile mass or rebound tenderness present Back/Spine no CVA tenderness General Back: Negative for CVA tenderness Cervical Spine: Negative for cervical spine tenderness Thoracic Spine / Upper Back: Negative for thoracic spinal tenderness Lumbar Spine / Lower Back: Negative for lumbar spinal tenderness Coccyx: Negative for other Extremity full ROM General Extremety ED: Negative for edema or tenderness General Extremity: Negative for edema Neuro CN's II-XII intact bilaterally and moves all extremities Sensorium / Orientation: alert, oriented to person, oriented to place and oriented to time; Negative for orientation impaired, confused, lethargic or stuporous Motor Exam: strength 5/5 throughout Psych mental status grossly normal and thought process normal Appearance: Negative for unkempt Attitude: No agitated Mood & Affect: Negative for depressed, anxious or tearful Skin no wounds General Skin Exam: Negative for jaundice or pallor Lesions: no lesions Trauma: Negative for abrasion Nails: Negative for discolored MDM MDM MDM Narrative Medical decision making narrative: She [id number] with abdominal pain is reproducible. Differential would include bowel obstruction even though she is not distended at this time, adhesions, pancreatitis, gallbladder disease, appendicitis, constipation or UTI. Mesenteric ischemia is a possibility but clinically does not seem like that initially. CAT scan and labs are pending. She will be treated with IV fluids, IV morphine for pain and Zofran to prevent nausea from the morphine. Patient was taken down to CAT scan she needed additional dose of morphine before she get the CAT scan obtained. She was given 4 more milligrams of morphine IV. Repeat exam patient is resting more comfortably now at 5:35 AM. We discussed all test results. She has been given several doses of morphine and Zofran. I have general surgery on page for admission. I did speak to general surgery on-call. He requested an NG be placed. NG was placed by nursing staff. On the single view KUB good position in the stomach. Lab Data Attestation: I reviewed the patient's lab results. Lab results narrative: CBC shows a normal white count of 5.9. H&H 12.7 and 38. Platelets of 166. Electrolytes show potassium of 3.4. Gap of 4. BUN 29 creatinine 1.15. Liver enzymes are unremarkable. Normal amylase at 100. Normal lipase of 201. Glucose is 125. CT abdomen pelvis with IV contrast shows distal small bowel obstruction with a transition point in the upper pelvis. No perforation. This was read by the radiologist and reviewed by me. The test results were discussed with the patient. Labs: Laboratory Results - last 24 hr 08/06/22 08/06/22 03:37 03:37 WBC 5.9 RBC 4.12 L Hgb 12.7 Hct 38.3 MCV 93.0 MCH 30.8 MCHC 33.2 RDW Std Deviation 43.6 RDW Coeff of Rojelio 12.8 Plt Count 166 MPV 10.2 Immature Gran % (Auto) 0.200 Neut % (Auto) 56.9 Lymph % (Auto) 30.5 [place] % (Auto) 9.4 Eos % (Auto) 2.5 Baso % (Auto) 0.5 Absolute Neuts (auto) 3.4 Absolute Lymphs (auto) 1.81 Nucleated RBC % 0 Sodium 140 Potassium 3.4 L Chloride 106 Carbon Dioxide 30.0 Anion Gap 4 L BUN 29 H Creatinine 1.15 H Estim Creat Clear Calc 32.23 Est GFR (MDRD) Af Amer 60 Est GFR (MDRD) Non-Af 49 L BUN/Creatinine Ratio 25.2 H Glucose 125 H Calcium 9.8 Total Bilirubin 0.60 AST 18 ALT 24 Alkaline Phosphatase 81 Total Protein 7.2 Albumin 3.6 Globulin 3.6 Albumin/Globulin Ratio 1.0 Amylase 100 Lipase 201 Radiography Diagnostic Testing: Clinical Impression(s) from Imaging Studies Abdomen/Pelvis CT 08/06/22 03:50 IMPRESSION: 1. Early high-grade distal mechanical small bowel obstruction with secondary mesenteric edema and small volume ascites. Recommend surgical consultation. Obstruction possibly secondary to focal adhesion or stricture. 2. Small amount of high attenuation fluid within distal gastric lumen and proximal duodenum, presumed small amount of ingested radiographic contrast or antacid medication. Follow-up as clinically warranted if concern for upper GI hemorrhage. 3. Other nonurgent findings within body of report. Electronically Signed: Mateo Greenfield MD at 5:25 EST , ADDENDUM: 08/06/22 0536 IMPRESSION: 1. Early high-grade distal mechanical small bowel obstruction with secondary mesenteric edema and small volume ascites. Recommend surgical consultation. Obstruction possibly secondary to focal adhesion or stricture. 2. Small amount of high attenuation fluid within distal gastric lumen and proximal duodenum, presumed small amount of ingested radiographic contrast or antacid medication. Follow-up as clinically warranted if concern for upper GI hemorrhage. 3. Other nonurgent findings within body of report. N.B. : The above Results were Read Back by Mateo Greenfield MD to Eloy Dent MD, and understanding confirmed on 08/06/2022 05:29:05 (ET). Electronically Signed: Mateo Greenfield MD at 5:25 EST , KUB single view of the abdomen for placement of the NG shows proper placement of the NG tube into the stomach. Otherwise no acute processes. Interpreted by myself. Discharge Plan Dx/Rx/DC Orders Clinical Impression: Abdominal pain, Complete small bowel obstruction Disposition Disposition: Acute Care Hospital [facility]
[2022-08-06] MEDS: 0.9% Normal Saline 1,000 ML 1000 ML IV (03:59)
[2022-08-06] MEDS: Morphine 4 MG/ML Syringe IV ×2 (03:59→04:46)
[2022-08-06] MEDS: Ondansetron 4 MG/2 ML Vial IV ×2 (04:00→05:17)
[2022-08-06 04:04] LABS: Absolute Lymphocyte Count 1.81 X10^3/uL (0.83-4.51); Absolute Neutrophil Count 3.4 X10^3/uL (2.0-7.7); Basophil# 0.03 X10^3/uL; Basophil% 0.5 % (0-1); Eosinophil# 0.15 X10^3/uL; Eosinophils% 2.5 % (0-5); Hematocrit 38.3 % (37-47); Hemoglobin 12.7 g/dL (12.0-15.0); Lymphocyte # 1.81 X10^3/ul (0.83-4.51); Lymphocyte % 30.5 % (19-41); Mean Corp Hgb Conc 33.2 g/dL (32-36); Mean Corpuscular Hgb 30.8 pg (27.0-32.0); Mean Platelet Vol. 10.2 fl (6.2-12.0); Monocyte# 0.56 X10^3/uL; Monocyte% 9.4 % (0-10); NRBC Flagged by Analyzer 0 % (0-5); Neutrophil # 3.37 X10^3/uL (2.7-7.7); Neutrophil % 56.9 % (47-70); Platelet Count 166 K/mm3 (150-450); RBC Distribution Width CV 12.8 % (11.6-14.6); RBC Distribution Width SD 43.6 fl (35.1-43.9); Red Blood Count 4.12 M/mm3 (4.2-5.4); White Blood Count 5.9 K/mm3 (4.4-11.0)
[2022-08-06 04:21] LABS: AST(SGOT) 18 U/L (15-37); Alanine Aminotransfer ALT/SGPT 24 U/L (13-56); Albumin, Serum 3.6 g/dL (3.2-5.0); Alkaline Phosphatase 81 U/L (45-117); Amylase 100 U/L (25-115); Anion Gap 4 (5-15); BUN 29 mg/dL (7-18); BUN/Creat Ratio 25.2 RATIO (10-20); Calcium,Total 9.8 mg/dL (8.5-10.1); Chloride 106 mmol/L (98-107); Creatinine, Serum 1.15 mg/dL (0.55-1.02); EST Glomerular Filtration Rate 49 mL/min (>60); Est Glom Filt Rate - Afr Amer 60 mL/min (>60); Estimated Creatinine Clearance 32.23 ml/min; Globulin 3.6 g/dL (2.2-4.2); Glucose 125 mg/dL (74-106); Lipase 201 U/L (73-393); Potassium 3.4 mmol/L (3.5-5.1); Protein, Total 7.2 g/dL (6.4-8.2); Sodium Level 140 mmol/L (136-145)
[2022-08-06] MEDS: HYDROmorphone 0.5 MG/0.5 ML SYRINGE IV (05:21)
--- NOTE | 2022-08-06 05:40 | RAD_ITS ---
INDICATION: NG Insertion EXAMINATION/TECHNIQUE: X-RAY - AP view upper abdomen COMPARISON: CT abdomen and pelvis from one hour prior FINDINGS: Enteric tube tip at mid stomach. No significant bowel dilatation demonstrated on this image. Slightly elevated bilateral hemidiaphragms. Skeletal degenerative changes and vascular calcifications noted. RAD/Abdomen Single View (Portable) IMPRESSION: Adequate position of enteric tube. Electronically Signed: Mateo Greenfield MD at 6:16 EST ,
--- NOTE | 2022-08-06 05:47 | CON.PCM.HO_ITS ---
Assessment & Plan Assessment/Plan (1) Complete small bowel obstruction: PLAN: Plan The patient is a 72 y/o F w/ PMHx: Diabetes mellitus type II, HTN, HLD, GERD, Carotid stenosis BL who presents to the [facility] ED on 08/06/22 with history of onset of abdominal pain, intermittent, diffuse, sharp and stabbing in nature with no nausea or emesis associated starting approximately 3 hours prior to ED presentation reporting it initially in the periumbilical region and then more diffusely in the entire abdomen with nothing causing it to worsen or improve prompting eventual EMS call for transition for evaluation. #1. Abdominal pain, nausea, emesis w/ high-grade mechanical SBO: Patient will be admitted per general surgery to the floor the discretion but given hypertension recommend telemetry for usage of IV as needed regimen, maintain on IVFs, would expect to continue NGT to suction, strict I&Os, IV pain/anti-emetics PRN, PPI IV, maintain NPO on bowel rest. ED noted general surgery intention to transition to the OR this a.m. given severity of findings and high-.grade #2. Hypokalemia: Admission K+ 3.4, magnesium level requested, supplementation given, repeat level in AM. #3. Carotid disease: Given presentation holding all oral medications, resume aspirin antihypertensive medications following, not on statin therapy. #4. Hypertension: Holding all oral medications given presentation as noted #1, as needed IV hydralazine and may have IV Lopressor addition if needed. #5. Hyperlipidemia: Not on statin therapy, defer to outpatient. #6. Chronic Kidney Disease Stage III, unclear subtype: Admission BUN/Cr 29/1.15, baseline renal function primarily 1.1-1.3, repeat BMP in AM. #7. Diabetes mellitus type II: Hold oral home regimen, n.p.o. status given acute presentation, accu checks w/ ISS, if hypoglycemia onset low threshold to transition to IV fluids with dextrose. #8. GERD: We will maintain on IV PPI. #9. Possible underlying depression: Patient with very flat affect, very somber with her acute presentation, reporting that most people have and that she does not have any people left 1 discussions occurred regarding healthcare power of consumer attorney. Will need close follow-up and assessment for depression. #10. DVT prophylaxis: SCDs, holding chemoprophylaxis given likely OR needs. #11. CODE status: Patient HCPOA is not in place and currently she is unable to give a name for someone she would want to be her decision-maker and living will is in place. Discussed CODE status at length including difference between FULL code, DNR-CCA and DNR-CC status. Following discussions about the differences in these status, requested DNR-CCA, no intubation. Advanced Care Planning Face to Face Time: 16 minutes. Admission Evaluation Time spent evaluating chart, patient history, patient evaluation, care planning and discussion with specialists: 60 minutes. HPI Consult Data Date of Consult: 08/06/22 HPI Narrative Reason for Consultation: Medical consultation HPI Narrative: The patient is a 72 y/o F w/ PMHx: Diabetes mellitus type II, HTN, HLD, GERD, Carotid stenosis BL who presents to the [facility] ED on 08/06/22 with history of onset of abdominal pain, intermittent, diffuse, sharp and stabbing in nature with no nausea or emesis associated starting approximately 3 hours prior to ED presentation reporting it initially in the periumbilical region and then more diffusely in the entire abdomen with nothing causing it to worsen or improve prompting eventual EMS call for transition for evaluation. Patient is having severe 10 out of 10 pain although reports that it is slightly lessened since NG tube placement but is very frustrated. In the ED with questioning she is very soft-spoken and has a flat affect. Work-up in the ED included T97.6, heart rate 76, BP 212/76, respiratory rate 15, 96% on room air, CBC with WC 5.9, hemoglobin 12.7, platelet 166 without shift, CMP with potassium 3.4, BUN/creatinine 29/1.15, glucose 125 CT abdomen and pelvis with early high-grade distal mechanical small bowel obstruction with secondary mesenteric edema and small volume ascites, small amount of high attenuation fluid in the distal gastric lumen and proximal duodenum, presumed small might of ingested radiographic contrast or antacid medication. ED discussed case with general surgery who will plan admission and transition to OR this a.m. with request consultation to have service for medical management. [facility] Medical History Cardiac murmur Carotid stenosis, bilateral Diabetes GERD (gastroesophageal reflux disease) HTN (hypertension) Osteoarthritis Vertigo Home Medications cholecalciferol (vitamin D3) 1,250 mcg (50,000 unit) capsule 1 tab PO QWEEK 03/03/19 [History Last Taken Unknown] glimepiride 4 mg tablet 1 tab PO DAILY 03/03/19 [History Last Taken Unknown] indapamide 1.25 mg tablet 1.25 mg PO DAILY 03/03/19 [History Last Taken Unknown] metoprolol tartrate 50 mg tablet 50 mg PO BID 03/03/19 [History Last Taken Unknown] naproxen 500 mg tablet 500 mg PO BID PRN Pain 03/03/19 [History Last Taken Unknown] ondansetron 4 mg disintegrating tablet 4 mg PO Q8H PRN PRN Nausea #6 tabs 03/03/19 [Rx Last Taken Unknown] tramadol 50 mg tablet 50 mg PO DAILY 03/03/19 [History Last Taken Unknown] Carbamide Peroxide [Ear Drops] 15 ml OT BID #150 mL 03/06/19 [Rx Last Taken Unknown] amlodipine 10 mg tablet 10 mg PO DAILY #60 tabs 03/06/19 [Rx Last Taken Unknown] meclizine 25 mg tablet 25 mg PO Q6H 03/06/19 [Rx Last Taken Unknown] Allergy/AdvReac Type Severity Reaction Status Date / Time furosemide [From Lasix] Allergy Hives Verified 08/06/22 03:36 Sulfa (Sulfonamide Allergy Hives Verified 08/06/22 03:36 Antibiotics) Family History Mother Heart disease Hypertension Diabetes Father Heart disease Hypertension Diabetes Surgical History History of dilation and curettage History of partial hysterectomy Social History household members: none Smoking Status: Never smoker alcohol intake: never substance use type: does not use ROS ROS Narrative Admission Review of Systems: CONSTITUTIONAL: No weight loss, fever, chills, + weakness or fatigue. HEENT: Eyes: No visual loss, blurred vision, double vision or yellow sclerae. Ears, Nose, Throat: No hearing loss, sneezing, congestion, runny nose or sore throat. SKIN: No rash or itching, lesions, wounds. CARDIOVASCULAR: No chest pain, chest pressure or chest discomfort, palpitations, edema, orthopnea, syncopal events. RESPIRATORY: No shortness of breath, cough or sputum, wheezing, hemoptysis. GASTROINTESTINAL: + anorexia, abdominal pain, No nausea, vomiting, diarrhea, melena, BRBPR. GENITOURINARY: No dysuria, frequency, urgency or retention. NEUROLOGICAL: No headache, dizziness, syncope, paralysis, ataxia, numbness or tingling in the extremities, focal weakness, change in bowel or bladder control, seizure. MUSCULOSKELETAL: + muscle, back pain, joint pain or stiffness. HEMATOLOGIC: No anemia, bleeding or bruising. LYMPHATICS: No enlarged nodes. No history of splenectomy. PSYCHIATRIC: + Suspect depression. ENDOCRINOLOGIC: No reports of sweating, cold or heat intolerance. No polyuria or polydipsia. ALLERGIES: + history of hives. Physical Exam Narrative Physical Examination: General: Awake, alert, oriented x 3 and cooperative, seated upright in the ED bed, very soft-spoken, irritable most recent NG tube placement per discussion with staff Skin: Normal color, normal turgor, no icterus, no cyanosis except for occasional staged ecchymoses. HEENT: AT/NC, EOMI, PERRLA, dry MM, NG tube in place, carotid bruits or JVD noted. Lungs: Mildly diminished, good bases, appropriate effort, no rales, ronchi or wheezing. Heart: Regular rate and rhythm; no gallop, rub audible. Abdomen: Soft, obese, severely tender to palpation in all quadrants, mild guarding, mildly distended, absent bowel sounds, difficulty assessing HSM given pain Extremities: No cyanosis, clubbing, or edema. Neurological: Patient awake, alert, oriented as noted, cognitive function appears intact; pupils equally reactive to light and accommodation, cranial nerves II-XII grossly normal, moving all 4 extremities, no focal deficits, strength moderately global decrease secondary to acute presentation Psychiatric: Affect appears flat, uncomfortable appearing, suspect underlying depression based on patient's comments. Lab / Micro Data Result Diagrams: 08/06/22 03:37 08/06/22 03:37 Labs: Laboratory Results - last 24 hr 08/06/22 03:37: WBC 5.9, RBC 4.12 L, Hgb 12.7, Hct 38.3, MCV 93.0, MCH 30.8, MCHC 33.2, RDW Std Deviation 43.6, RDW Coeff of Rojelio 12.8, Plt Count 166, MPV 10.2, Immature Gran % (Auto) 0.200, Neut % (Auto) 56.9, Lymph % (Auto) 30.5, [place] % (Auto) 9.4, Eos % (Auto) 2.5, Baso % (Auto) 0.5, Absolute Neuts (auto) 3.4, Absolute Lymphs (auto) 1.81, Nucleated RBC % 0 08/06/22 03:37: Sodium 140, Potassium 3.4 L, Chloride 106, Carbon Dioxide 30.0, Anion Gap 4 L, BUN 29 H, Creatinine 1.15 H, Estim Creat Clear Calc 32.23, Est GFR (MDRD) Af Amer 60, Est GFR (MDRD) Non-Af 49 L, BUN/Creatinine Ratio 25.2 H, Glucose 125 H, Calcium 9.8, Total Bilirubin 0.60, AST 18, ALT 24, Alkaline Phosphatase 81, Total Protein 7.2, Albumin 3.6, Globulin 3.6, Albumin/Globulin Ratio 1.0, Amylase 100, Lipase 201 Radiology Impression Abdomen/Pelvis CT 08/06/22 03:50 IMPRESSION: 1. Early high-grade distal mechanical small bowel obstruction with secondary mesenteric edema and small volume ascites. Recommend surgical consultation. Obstruction possibly secondary to focal adhesion or stricture. 2. Small amount of high attenuation fluid within distal gastric lumen and proximal duodenum, presumed small amount of ingested radiographic contrast or antacid medication. Follow-up as clinically warranted if concern for upper GI hemorrhage. 3. Other nonurgent findings within body of report. Electronically Signed: Mateo Greenfield MD at 5:25 EST , ADDENDUM: 08/06/22 0536 IMPRESSION: 1. Early high-grade distal mechanical small bowel obstruction with secondary mesenteric edema and small volume ascites. Recommend surgical consultation. Obstruction possibly secondary to focal adhesion or stricture. 2. Small amount of high attenuation fluid within distal gastric lumen and proximal duodenum, presumed small amount of ingested radiographic contrast or antacid medication. Follow-up as clinically warranted if concern for upper GI hemorrhage. 3. Other nonurgent findings within body of report. N.B. : The above Results were Read Back by Mateo Greenfield MD to Eloy Dent MD, and understanding confirmed on 08/06/2022 05:29:05 (ET). Electronically Signed: Mateo Greenfield MD at 5:25 EST , Charges/Coding Visit Charges Office Visits / Consults: [id number] IP Consult L4 Procedures Hospitalists Procedures: 22115 Advncd Care Plan 30 Min
[2022-08-06 06:40] LABS: Magnesium 2.2 mg/dL (1.6-2.6)
[2022-08-06] MEDS: 0.9% Normal Saline 1,000 ML 100 ML IV ×2 (06:55→19:49)
--- NOTE | 2022-08-06 07:04 | PCM.HP.STD ---
HPI - General General Date of Admission: 08/06/22 Chief Complaint: Acute onset abdominal pain HPI Narrative LANA ARMSTRONG, is a 72 F who presents to [facility] with complaints of 3 hours of acute onset abdominal pain and associated nausea. History is obtained in part through emergency medicine physician as patient is an unreliable historian with our first encounter given in over narcotized appearance and falls asleep midsentence. Patient apparently went out to dinner at a local diner last evening and then began with abdominal discomfort approximately 3 hours later. Sometime thereafter she began with nausea, but no vomiting. Patient's ER work-up was significant for CBC with normal WBC, but CT imaging showed evidence of small bowel obstruction with transition point likely in the right lower quadrant. There is also some mesenteric edema noted in proximity to this transition point. Nasogastric tube was ordered upon consultation and placed with good positioning per follow-up KUB. Patient states that this is the first time that she has had any issues with blockages. Her only past surgical history was a total abdominal hysterectomy performed 20+ years ago. [facility] Medical History Cardiac murmur Carotid stenosis, bilateral Diabetes GERD (gastroesophageal reflux disease) HTN (hypertension) Osteoarthritis Vertigo Home Medications cholecalciferol (vitamin D3) 1,250 mcg (50,000 unit) capsule 1 tab PO QWEEK Check with primary doctor 03/03/19 [History Last Taken Unknown] glimepiride 4 mg tablet 1 tab PO DAILY Check with primary doctor 03/03/19 [History Last Taken 08/06/22] indapamide 1.25 mg tablet 1.25 mg PO DAILY Check with primary doctor 03/03/19 [History Last Taken 08/05/22] metoprolol tartrate 50 mg tablet 50 mg PO BID Check with primary doctor 03/03/19 [History Last Taken 08/06/22] naproxen 500 mg tablet 500 mg PO BID PRN Pain 03/03/19 [History Last Taken Unknown] ondansetron 4 mg disintegrating tablet 4 mg PO Q8H PRN PRN Nausea #6 tabs 03/03/19 [Rx Last Taken Unknown] tramadol 50 mg tablet 50 mg PO DAILY 03/03/19 [History Last Taken Unknown] Carbamide Peroxide [Ear Drops] 15 ml OT BID #150 mL 03/06/19 [Rx Last Taken Unknown] amlodipine 10 mg tablet 10 mg PO DAILY #60 tabs 03/06/19 [Rx Last Taken Unknown] meclizine 25 mg tablet 25 mg PO Q6H PRN Dizziness 08/06/22 [History Last Taken Unknown] Allergy/AdvReac Type Severity Reaction Status Date / Time furosemide [From Lasix] Allergy Hives Verified 08/06/22 03:36 Sulfa (Sulfonamide Allergy Hives Verified 08/06/22 03:36 Antibiotics) Family History Mother Heart disease Hypertension Diabetes Father Heart disease Hypertension Diabetes Surgical History History of dilation and curettage History of partial hysterectomy Social History household members: none Smoking Status: Never smoker alcohol intake: never substance use type: does not use Vital Signs Vital Signs Vital Signs: 08/06/22 03:30 08/06/22 03:35 08/06/22 05:27 Temperature 97.6 F L Temperature Source Oral Pulse Rate 76 Respiratory Rate 15 Blood Pressure 212/76 H 212/76 H Blood Pressure Mean 121 121 Blood Pressure Source Blood Pressure Position Blood Pressure Location Pulse Ox 96 91 Oxygen Delivery Method Room Air Room Air 08/06/22 06:00 08/06/22 06:13 08/06/22 06:59 Temperature 97.2 F L 97.8 F Temperature Source Temporal Oral Pulse Rate 74 90 69 Respiratory Rate 18 18 18 Blood Pressure 162/75 H 154/68 H 193/73 H Blood Pressure Mean 104 96 113 Blood Pressure Source Monitor Blood Pressure Position Semi-Fowlers Blood Pressure Location Left Arm Pulse Ox 97 99 97 Oxygen Delivery Method Room Air Room Air Room Air Weight Weight: 144 lb 2 oz Body Mass Index (BMI) 28.1 Physical Exam Const Constitutional Narrative: Patient is somnolent and somewhat confused. She has difficulty completing full thoughts before she falls asleep. She acknowledges some persistent abdominal discomfort and reports that she is fearful about her situation. Resp normal respiratory effort GI GI Narrative: Minimally distended. Soft. Tenderness to palpation across lower abdominal quadrants. Voluntary guarding present intermittently. Nasogastric tube with minimal output Results Lab / Micro Data Result Diagrams: 08/06/22 03:37 08/06/22 03:37 Labs: Laboratory Results - last 24 hr 08/06/22 03:37: WBC 5.9, RBC 4.12 L, Hgb 12.7, Hct 38.3, MCV 93.0, MCH 30.8, MCHC 33.2, RDW Std Deviation 43.6, RDW Coeff of Rojelio 12.8, Plt Count 166, MPV 10.2, Immature Gran % (Auto) 0.200, Neut % (Auto) 56.9, Lymph % (Auto) 30.5, [place] % (Auto) 9.4, Eos % (Auto) 2.5, Baso % (Auto) 0.5, Absolute Neuts (auto) 3.4, Absolute Lymphs (auto) 1.81, Nucleated RBC % 0 08/06/22 03:37: Sodium 140, Potassium 3.4 L, Chloride 106, Carbon Dioxide 30.0, Anion Gap 4 L, BUN 29 H, Creatinine 1.15 H, Estim Creat Clear Calc 32.23, Est GFR (MDRD) Af Amer 60, Est GFR (MDRD) Non-Af 49 L, BUN/Creatinine Ratio 25.2 H, Glucose 125 H, Calcium 9.8, Total Bilirubin 0.60, AST 18, ALT 24, Alkaline Phosphatase 81, Total Protein 7.2, Albumin 3.6, Globulin 3.6, Albumin/Globulin Ratio 1.0, Amylase 100, Lipase 201 08/06/22 03:37: Magnesium 2.2 Radiology Impression Abdomen/Pelvis CT 08/06/22 03:50 IMPRESSION: 1. Early high-grade distal mechanical small bowel obstruction with secondary mesenteric edema and small volume ascites. Recommend surgical consultation. Obstruction possibly secondary to focal adhesion or stricture. 2. Small amount of high attenuation fluid within distal gastric lumen and proximal duodenum, presumed small amount of ingested radiographic contrast or antacid medication. Follow-up as clinically warranted if concern for upper GI hemorrhage. 3. Other nonurgent findings within body of report. Electronically Signed: Mateo Greenfield MD at 5:25 EST , ADDENDUM: 08/06/22 0536 IMPRESSION: 1. Early high-grade distal mechanical small bowel obstruction with secondary mesenteric edema and small volume ascites. Recommend surgical consultation. Obstruction possibly secondary to focal adhesion or stricture. 2. Small amount of high attenuation fluid within distal gastric lumen and proximal duodenum, presumed small amount of ingested radiographic contrast or antacid medication. Follow-up as clinically warranted if concern for upper GI hemorrhage. 3. Other nonurgent findings within body of report. N.B. : The above Results were Read Back by Mateo Greenfield MD to Eloy Dent MD, and understanding confirmed on 08/06/2022 05:29:05 (ET). Electronically Signed: Mateo Greenfield MD at 5:25 EST , KUB X-Ray 08/06/22 05:40 IMPRESSION: Adequate position of enteric tube. Electronically Signed: Mateo Greenfield MD at 6:16 EST , Assessment & Plan Assessment/Plan (1) Complete small bowel obstruction: PLAN: Is a 72-year-old female who presents acutely for an associated nausea. ER work-up appears to point to a early high-grade small bowel obstruction with transition point in the pelvis on the right. Although there was minimal gastric distention and no vomiting, I requested placement of a nasogastric tube for proximal decompression to facilitate enteroclysis and, if need be, decompression for minimally invasive surgery. It is difficult to obtain either history or good exam from patient as she is somnolent from the pain medication she received in the emergency department. What exam I am able to obtain, is overall reassuring that she has minimal distention and her abdominal wall is soft. Therefore I would like to continue decompression for a few hours before beginning a small bowel follow-through. Hospitalist service was consulted to assist with patient's other comorbidities. Patient appears to require further assistance with her hypertension, specifically. Plan: Neuro: As needed Dilaudid (will use sparingly given patient's current affect) Pulm/CV: Maintain head of bed elevation, aspiration precautions, hydralazine as needed, antihypertensives per hospitalist FEN/GI: Active monitoring of electrolytes while patient n.p.o., n.p.o. with NG tube to low intermittent wall suction, small bowel follow-through later today : No current issues Heme/ID: Trend CBC Endo: Diabetes management per hospitalist service Proph: SCDs, encourage ambulation Dispo: Admit to inpatient
[2022-08-06] MEDS: Potassium Chloride 10mEq/100mL 10 MEQ/100 ML IV.SOLN. 100 MEQ IV BOLUS ×4 (08:06→13:02)
--- NOTE | 2022-08-06 10:30 | RAD_ITS ---
CLINICAL HISTORY: Female, 72 years old. Abdominal pain and distention PROCEDURE: Small bowel follow-through study CONSENT: Informed consent obtained SEDATION: None No fluoroscopy, 5 overhead films obtained Study compared with CT scan from yesterday TECHNIQUE: (All elements of maximal sterile barrier technique followed, including US elements as applicable) Clinical Ob film demonstrates an NG tube in the body of the stomach. Bowel gas pattern is unremarkable. Bony structures show degenerative change with a levoscoliosis in the lumbar spine. Contrast injected through the NG tube, films at postcontrast, 6 hours, 12 hours and 24 hours obtained. Initial images showed contrast pooling within the stomach. 6, 12, and 24 hour studies show oral contrast through the small intestine with oral contrast noted within the ascending colon at 12 hours. 24 hours show majority of contrast through the small bowel into the colon. The previous CT scan suggested an obstructive process in the distal ileum however, this study does not suggest there is obstruction. There may be decreased peristalsis in the distal small bowel but there is no functional obstruction as the majority of contrast again is noted passing through the small bowel. The 24-hour film again shows nondistended air-filled loops of small bowel suggesting ileus. RAD/Small Bowel Series Only IMPRESSION: No evidence to suspect obstruction on the small bowel follow-through study. Findings suggest ileus with increased transit time of contrast to the colon. Transit time is somewhere between 12 and 24 hours Electronically Signed: Sunday Pagan MD at 11:05 EST ,
[2022-08-06] MEDS: Metoprolol Tartrate 5 MG/5 ML Vial IV ×3 (13:27→23:57)
[2022-08-06] MEDS: 0.9% Saline Lock 10 ML Syringe IV (13:27)
--- NOTE | 2022-08-06 15:15 | CASEMGMT ---
RN?CM?STOCKROOM ATTENDANT?CM?to room to meet with patient for initial transition planning/care coordination?assessment.?RN?CM?introduced self and role at [facility].? Pt voices understanding and consents to?assessment?at this time.? Pt sitting up in chair in room in no distress at this time.? Pt is A/O at this time and answers all questions appropriately.?? Care providers, pharmacy, and demographics verified/updated at this time. PCP: Dr Foote Specialists: none Preferred Pharmacy: [facility] Insurance: [facility] Prescription Benefit:?none Living Will/HPOA:?Pt does not currently have LW/HCPOA and declines info at this time.?She states she wants to think about it. Pt made aware that she can contact SW as an out-pt and make appt in the future if she decides she would like to talk with someone about this or would like to utilize [facility] social work for advanced directive completion.? LNOK: No children. Parents are . Pt has 3 siblings: Vicente, Mateo (lives in [place]), and Maximilian. Pt states They don't have anything to do with me and states she would not know how to contact them, nor would she want them contacted. RN CM discussed HCPOA again and information provided. Pt confirms she still does not wish to completed POA paperwork at this time. Pt's only contact listed is a friend, Sergey. Pt also states Sergey's dad, Julian Zheng, could be added to her contacts, although she is not certain of his #. Living Arrangements: Lives alone in one-story home w/basement and 3 steps to enter. States she is indep w/ADL's and IADL's and manages her own medications. Transportation:?Pt states drives self and states no transportation concerns at this time.? She states either Julian or her friend can take her home @ d/c DME: ? Denies using any DME and denies needs.?She has a walker available (was her mom's), if needed. HHC/SNF: No hx of either and no needs identified. Pt wishes to return home and states has no concerns with going home at time of discharge.?CM?to follow for any discharge planning/needs.? Pt voices no concerns/needs at this time.? Advised pt to ask for?CM?if any questions/concerns/needs arise.? Voices understanding. PLAN:??[employer] BSN?RN?CM
[2022-08-06] MEDS: BENZOCAINE/MENTHOL 1 LOZENGE MUCOUS MEM ×2 (17:40→20:02)
[2022-08-06] MEDS: HYDROmorphone 0.5 MG/0.5 ML SYRINGE 0.25 MG IV ×2 (17:40→23:55)
[2022-08-06 18:40] LABS: Bedside Glucose 187 mg/dL (74-106)
[2022-08-07] VITALS (12 sets, daily range): BP systolic 124–181; BP diastolic 52–92; PULSE 70–94; RESP 16–20; TEMP 36.4–37.7; O2SAT 92–99; BMI 28.1
[2022-08-07 00:30] LABS: Bedside Glucose 141 mg/dL (74-106)
[2022-08-07] MEDS: Metoprolol Tartrate 5 MG/5 ML Vial IV ×3 (05:17→17:53)
[2022-08-07] MEDS: BENZOCAINE/MENTHOL 1 LOZENGE MUCOUS MEM ×2 (05:18→17:53)
[2022-08-07] MEDS: HYDROmorphone 0.5 MG/0.5 ML SYRINGE 0.25 MG IV ×4 (05:18→20:05)
[2022-08-07] MEDS: 0.9% Normal Saline 1,000 ML 100 ML IV ×2 (05:28→15:51)
[2022-08-07] MEDS: Insulin Lispro 100 UNIT/ML INSULN.PEN SC (05:47)
[2022-08-07 05:58] LABS: Absolute Lymphocyte Count 0.98 X10^3/uL (0.83-4.51); Absolute Neutrophil Count 7.3 X10^3/uL (2.0-7.7); Basophil# 0.03 X10^3/uL; Basophil% 0.3 % (0-1); Eosinophil# 0.04 X10^3/uL; Eosinophils% 0.4 % (0-5); Hematocrit 37.5 % (37-47); Hemoglobin 11.8 g/dL (12.0-15.0); Lymphocyte # 0.98 X10^3/ul (0.83-4.51); Lymphocyte % 10.9 % (19-41); Mean Corp Hgb Conc 31.5 g/dL (32-36); Mean Corpuscular Hgb 30.9 pg (27.0-32.0); Mean Corpuscular Volume 98.2 fL (81-99); Mean Platelet Vol. 10.7 fl (6.2-12.0); Monocyte# 0.65 X10^3/uL; Monocyte% 7.2 % (0-10); NRBC Flagged by Analyzer 0 % (0-5); Neutrophil # 7.27 X10^3/uL (2.7-7.7); Neutrophil % 80.8 % (47-70); Platelet Count 163 K/mm3 (150-450); Red Blood Count 3.82 M/mm3 (4.2-5.4)
[2022-08-07 06:25] LABS: BUN 30 mg/dL (7-18); Creatinine, Serum 1.36 mg/dL (0.55-1.02); EST Glomerular Filtration Rate 41 mL/min (>60); Estimated Creatinine Clearance 27.25 ml/min; Glucose 173 mg/dL (74-106)
[2022-08-07 06:26] LABS: Anion Gap 6 (5-15); BUN/Creat Ratio 22.1 RATIO (10-20); Calcium,Total 9.1 mg/dL (8.5-10.1); Chloride 109 mmol/L (98-107); Est Glom Filt Rate - Afr Amer 49 mL/min (>60); Magnesium 1.9 mg/dL (1.6-2.6); Phosphorus 3.8 mg/dL (2.5-4.9); Potassium 4.5 mmol/L (3.5-5.1); Sodium Level 139 mmol/L (136-145)
--- NOTE | 2022-08-07 07:24 | PN.HOSP_ITS ---
Reason for Visit Reason for Visit: Diagnoses Complete intestinal obstruction, unspecified as to cause (08/06/22) Subjective Subjective Complaining of belly pain and pain in the back of her throat and the pain with the NG tube. Patient had been recommended to proceed with surgery but the patient seems very focused about the NG tube and wanting that taken out. Objective Data Objective Data Vital Signs: Vital Signs Temp Pulse Resp BP Pulse Ox O2 Del Method 36.4 C L 83 16 146/64 H 95 Room Air 08/07/22 03:19 08/07/22 05:45 08/07/22 03:19 08/07/22 05:45 08/07/22 03:19 08/07/22 03:19 Oxygen Delivery Method Room Air Weight: 65.374 kg Body Mass Index (BMI) 28.1 Intake & Output: Intake and Output for Last 24 Hours 08/05/22 08/06/22 08/07/22 23:59 23:59 23:59 Intake Total 3520.00 / 3520.00 965 / 965 Balance 3520.00 / 3520.00 965 / 965 Lab / Micro Data Result Diagrams: 08/07/22 05:03 08/07/22 05:03 Labs: Laboratory Results - last 24 hr 08/06/22 18:13: POC Glucose 187 H 08/07/22 00:04: POC Glucose 141 H 08/07/22 05:03: WBC 9.0, RBC 3.82 L, Hgb 11.8 L, Hct 37.5, MCV 98.2 D, MCH 3 0.9, MCHC 31.5 L D, RDW Std Deviation 46.0 H, RDW Coeff of Rojelio 13.0, Plt Count 163, MPV 10.7, Immature Gran % (Auto) 0.400, Neut % (Auto) 80.8 H, Lymph % (Auto) 10.9 L, [place] % (Auto) 7.2, Eos % (Auto) 0.4, Baso % (Auto) 0.3, Absolute Neuts (auto) 7.3, Absolute Lymphs (auto) 0.98, Nucleated RBC % 0 08/07/22 05:03: Sodium 139, Potassium 4.5, Chloride 109 H, Carbon Dioxide 24.0, Anion Gap 6, BUN 30 H, Creatinine 1.36 H, Estim Creat Clear Calc 27.25, Est GFR (MDRD) Af Amer 49 L, Est GFR (MDRD) Non-Af 41 L, BUN/Creatinine Ratio 22.1 H, Glucose 173 H, Calcium 9.1, Phosphorus 3.8, Magnesium 1.9 Physical Exam Const alert Constitutional Narrative: Minimal eye contact. Up in chair. Anxious. Keeps perseverating about the NG tube in her nose. HEENT head/scalp atraumatic and moist oral mucous membranes Extremity normal to inspection Assessment & Plan Assessment/Plan (1) Complete small bowel obstruction: PLAN: Abdominal pain, nausea, emesis w/ high-grade mechanical SBO: Patient will be admitted per general surgery to the floor the discretion but given hypertension recommend telemetry for usage of IV as needed regimen, maintain on IVFs, would expect to continue NGT to suction, strict I&Os, IV pain/anti-emetics PRN, PPI IV, maintain NPO on bowel rest. Small bowel follow-through General surgery recommending exploratory laparotomy for possible lysis of adhesions and so forth. Recommended also that for the patient as well. Patient does peer to be bit a rational focus solely on her NG tube and asking for that,. I told her that if it comes out I would likely have to go back in if she were to have require surgery but ultimately decision is hers but of a size that she had 2 physicians both recommending the same thing but if she does not want surgery that certainly her choice and if she could potentially get worse and if that point then would recommend hospice. Patient does not seem to be rational at this point in time. (2) Hypokalemia: PLAN: Hypokalemia: Admission K+ 3.4, magnesium level requested, supplementation given, repeat level in AM. PLAN: Plan Chronic conditions * Carotid disease: Given presentation holding all oral medications, resume aspirin antihypertensive medications following, not on statin therapy. * Hypertension: Holding all oral medications given presentation as noted #1, as needed IV hydralazine and may have IV Lopressor addition if needed. * Hyperlipidemia: Not on statin therapy, defer to outpatient. * Chronic Kidney Disease Stage III, unclear subtype: Admission BUN/Cr 29/1.15, baseline renal function primarily 1.1-1.3, repeat BMP in AM. * Diabetes mellitus type II: Hold oral home regimen, n.p.o. status given acute presentation, accu checks w/ ISS, if hypoglycemia onset low threshold to transition to IV fluids with dextrose. * GERD: We will maintain on IV PPI. * Possible underlying depression: Patient with very flat affect, very somber with her acute presentation, reporting that most people have and that she does not have any people left 1 discussions occurred regarding healthcare power of assistant attorney general. Will need close follow-up and assessment for depression. DVT prophylaxis: SCDs, holding chemoprophylaxis given likely OR needs. CODE status: Patient HCPOA is not in place and currently she is unable to give a name for someone she would want to be her decision-maker and living will is in place. Discussed CODE status at length including difference between FULL code, DNR-CCA and DNR-CC status. Charges/Coding Visit Charges Inpatient E&M: 06005 Subs Hosp L2
--- NOTE | 2022-08-07 08:26 | PN.SURG_ITS ---
Subjective Subjective Patient was seen and evaluated multiple times throughout the morning. She is initially found sitting in a chair complaining of colicky abdominal pain. She denied any nausea or vomiting overnight. However, she also denied any passage of flatus or bowel movement. Objective Data Objective Data Vital Signs: Vital Signs Temp Pulse Resp BP Pulse Ox O2 Del Method 98.7 F 78 18 151/72 H 99 Room Air 08/07/22 08:10 08/07/22 08:10 08/07/22 08:10 08/07/22 08:10 08/07/22 08:10 08/07/22 08:10 Oxygen Delivery Method Room Air Weight: 144 lb 2 oz Body Mass Index (BMI) 28.1 Intake & Output: Intake and Output for Last 24 Hours 08/05/22 08/06/22 08/07/22 23:59 23:59 23:59 Intake Total 3520.00 / 3520.00 965 / 965 Balance 3520.00 / 3520.00 965 / 965 Lab / Micro Data Result Diagrams: 08/07/22 05:03 08/07/22 05:03 Labs: Laboratory Results - last 24 hr 08/06/22 18:13: POC Glucose 187 H 08/07/22 00:04: POC Glucose 141 H 08/07/22 05:03: WBC 9.0, RBC 3.82 L, Hgb 11.8 L, Hct 37.5, MCV 98.2 D, MCH 30.9, MCHC 31.5 L D, RDW Std Deviation 46.0 H, RDW Coeff of Rojelio 13.0, Plt Count 163, MPV 10.7, Immature Gran % (Auto) 0.400, Neut % (Auto) 80.8 H, Lymph % (Auto) 10.9 L, [place] % (Auto) 7.2, Eos % (Auto) 0.4, Baso % (Auto) 0.3, Absolute Neuts (auto) 7.3, Absolute Lymphs (auto) 0.98, Nucleated RBC % 0 08/07/22 05:03: Sodium 139, Potassium 4.5, Chloride 109 H, Carbon Dioxide 24.0, Anion Gap 6, BUN 30 H, Creatinine 1.36 H, Estim Creat Clear Calc 27.25, Est GFR (MDRD) Af Amer 49 L, Est GFR (MDRD) Non-Af 41 L, BUN/Creatinine Ratio 22.1 H, Glucose 173 H, Calcium 9.1, Phosphorus 3.8, Magnesium 1.9 Physical Exam Const oriented x3 Constitutional Narrative: Mild distress from abdominal discomfort and tube discomfort (an NG tube) Resp normal respiratory effort GI GI Narrative: Mildly increased abdominal distention, soft, initially tender to palpation across the lower abdominal quadrants (right greater than left)?but this improved throughout the morning Assessment & Plan Assessment/Plan (1) Complete small bowel obstruction: PLAN: Is a 72-year-old female who presents acutely for an associated nausea and abdominal pain. ER work-up pointed to a early high-grade small bowel obstruction with transition point in the pelvis on the right. Yesterday patient had small bowel series begun via her nasogastric tube. Today she denies any return of bowel function, but 23-hour film for her small bowel series showed contrast predominantly in her right colon. I had initially recommended proceeding to the operating room for diagnostic laparoscopy, but on noting this result I reevaluated the patient and she stated that she had 1 episode of emesis but her symptoms of abdominal pain are markedly improved. Radiology had not formally submitted a read for the small bowel series study so I telephoned the reading radiologist and they confirmed that they saw contrast entering the colon and that patient's bowel gas pattern was nonobstructive throughout the earlier images and the small bowel series. Therefore they were concluding that patient exhibited more of an ileus picture than a mechanical obstruction. Following this conversation, patient's abdomen remained benign so I made the decision to hold off on surgery today. Plan to return patient to hospital bell for further NG tube decompression and we will repeat a KUB in the a.m. as we see if she will have spontaneous return of bowel function with some additional time. I discussed with both patient and her close friend that this decision did not take surgery off the table entirely for this admission. I remain suspicious for possible partial bowel obstruction that is allowing some contrast passage but still leading to proximal small bowel distention. Plan: Neuro: As needed Dilaudid (will use sparingly given patient's current affect) Pulm/CV: Maintain head of bed elevation, aspiration precautions, hydralazine as needed, antihypertensives per hospitalist FEN/GI: Active monitoring of electrolytes while patient n.p.o., n.p.o. with NG tube to low intermittent wall suction, small bowel follow-through?follow-up read and obtained KUB a.m. of 08/08/2022 : No current issues Heme/ID: Trend CBC Endo: Diabetes management per hospitalist service Proph: SCDs, encourage ambulation Dispo: Continue inpatient stay Charges/Coding Visit Charges Inpatient E&M: 59642 Subs Hosp L2
--- NOTE | 2022-08-07 09:47 | NURSING ---
Pt is up and in chair . Sheila Pang into see pt and nurse also , again explanation is given on need to NG and the decision is made for surgical intervention. Dr. Sosa explained to Pt what is the procedure and is giving consent to said procedure. Pt is in agreement to have Souleymane her friend be updated that she is going to surgery. Phone call to Souleymane made and he will come to visit her. Dr. Sosa requested that small bowel study film be done now. Pt is medicated wiith GIANFRANCO dilaudid and is set to be transported to xray. Prior leaving the floor for xray she had a small emesis of bile drainage. Pt is down for xray.
[2022-08-07 10:51] LABS: Bedside Glucose 163 mg/dL (74-106)
[2022-08-07 12:31] LABS: Bedside Glucose 146 mg/dL (74-106)
[2022-08-07] MEDS: 0.9% Saline Lock 10 ML Syringe IV (17:53)
[2022-08-07 18:30] LABS: Bedside Glucose 159 mg/dL (74-106)
[2022-08-08] VITALS (23 sets, daily range): BP systolic 105–189; BP diastolic 51–102; PULSE 75–114; RESP 12–22; TEMP 36.7–37.5; O2SAT 90–98
[2022-08-08] MEDS: Metoprolol Tartrate 5 MG/5 ML Vial IV ×3 (00:05→13:13)
[2022-08-08 00:10] LABS: Bedside Glucose 171 mg/dL (74-106)
[2022-08-08] MEDS: HYDROmorphone 0.5 MG/0.5 ML SYRINGE 0.25 MG IV ×2 (01:49→07:10)
[2022-08-08] MEDS: 0.9% Normal Saline 1,000 ML 100 ML IV ×2 (01:51→13:00)
[2022-08-08] MEDS: BENZOCAINE/MENTHOL 1 LOZENGE MUCOUS MEM (04:34)
--- NOTE | 2022-08-08 05:17 | RAD_ITS ---
INDICATION: Follow-up small bowel obstruction EXAMINATION/TECHNIQUE: X-RAY - frontal views of upper and lower abdomen, 2 images: XR Abdomen 1 View COMPARISON: Abdominal radiographs from 08/06/2022 FINDINGS: There are some dilated gas-filled loops of small bowel. Barium contrast throughout nondilated large bowel. Mildly elevated hemidiaphragms with bibasilar atelectatic changes. Dense mitral annular calcifications noted. Atherosclerotic calcifications along aorta. Skeletal degenerative changes with mild thoracolumbar scoliosis. RAD/Abdomen Single View (Portable) IMPRESSION: Bowel gas pattern suggesting partial small bowel obstruction. Electronically Signed: Mateo Greenfield MD at 5:38 EST ,
[2022-08-08 05:45] LABS: Absolute Lymphocyte Count 1.18 X10^3/uL (0.83-4.51); Absolute Neutrophil Count 5.2 X10^3/uL (2.0-7.7); Basophil# 0.03 X10^3/uL; Basophil% 0.4 % (0-1); Eosinophil# 0.09 X10^3/uL; Eosinophils% 1.3 % (0-5); Hematocrit 31.7 % (37-47); Hemoglobin 10.6 g/dL (12.0-15.0); Lymphocyte # 1.18 X10^3/ul (0.83-4.51); Lymphocyte % 16.4 % (19-41); Mean Corp Hgb Conc 33.4 g/dL (32-36); Mean Corpuscular Hgb 31.1 pg (27.0-32.0); Mean Platelet Vol. 10.5 fl (6.2-12.0); Monocyte# 0.69 X10^3/uL; Monocyte% 9.6 % (0-10); NRBC Flagged by Analyzer 0 % (0-5); Neutrophil % 72.2 % (47-70); Platelet Count 127 K/mm3 (150-450); RBC Distribution Width CV 12.9 % (11.6-14.6); RBC Distribution Width SD 43.8 fl (35.1-43.9); Red Blood Count 3.41 M/mm3 (4.2-5.4); White Blood Count 7.2 K/mm3 (4.4-11.0)
[2022-08-08 06:32] LABS: Anion Gap 6 (5-15); BUN 21 mg/dL (7-18); BUN/Creat Ratio 19.3 RATIO (10-20); Calcium,Total 8.6 mg/dL (8.5-10.1); Chloride 110 mmol/L (98-107); Creatinine, Serum 1.09 mg/dL (0.55-1.02); EST Glomerular Filtration Rate 53 mL/min (>60); Est Glom Filt Rate - Afr Amer 64 mL/min (>60); Glucose 99 mg/dL (74-106); Magnesium 1.7 mg/dL (1.6-2.6); Potassium 3.7 mmol/L (3.5-5.1); Sodium Level 141 mmol/L (136-145)
[2022-08-08 06:41] LABS: Bedside Glucose 100 mg/dL (74-106)
[2022-08-08] MEDS: hydrALAZINE 20 MG/ML Vial 10 MG IV (06:51)
[2022-08-08 07:16] LABS: Bedside Glucose 104 mg/dL (74-106)
--- NOTE | 2022-08-08 08:55 | PN.SURG_ITS ---
Subjective Subjective Patient seen and examined on rounds. She is overall resting in bed, but complains of intermittent abdominal pain. She denies any significant nausea, but also denies any gas or bowel movements overnight. Objective Data Objective Data Vital Signs: Vital Signs Temp Pulse Resp BP Pulse Ox O2 Del Method 99 F 79 16 167/77 H 90 Room Air 08/08/22 06:50 08/08/22 06:51 08/08/22 06:50 08/08/22 06:51 08/08/22 06:50 08/08/22 06:50 Oxygen Delivery Method Room Air Weight: 144 lb 2 oz Body Mass Index (BMI) 28.1 Intake & Output: Intake and Output for Last 24 Hours 08/06/22 08/07/22 08/08/22 23:59 23:59 23:59 Intake Total 3520.00 / 3520.00 2185 / 2205 1060 / 1060 Output Total 850 / 950 150 / 150 Balance 3520.00 / 3520.00 1335 / 1255 910 / 910 Lab / Micro Data Result Diagrams: 08/08/22 05:07 08/08/22 05:07 Labs: Laboratory Results - last 24 hr 08/07/22 05:41: POC Glucose 171 H 08/07/22 10:27: POC Glucose 163 H 08/07/22 12:13: POC Glucose 146 H 08/07/22 17:57: POC Glucose 159 H 08/08/22 00:10: POC Glucose 100 08/08/22 05:07: WBC 7.2, RBC 3.41 L, Hgb 10.6 L, Hct 31.7 L, MCV 93.0 D, MCH 31.1, MCHC 33.4 D, RDW Std Deviation 43.8, RDW Coeff of Rojelio 12.9, Plt Count 127 L, MPV 10.5, Immature Gran % (Auto) 0.100, Neut % (Auto) 72.2 H, Lymph % (Auto) 16.4 L, [place] % (Auto) 9.6, Eos % (Auto) 1.3, Baso % (Auto) 0.4, Absolute Neuts (auto) 5.2, Absolute Lymphs (auto) 1.18, Nucleated RBC % 0 08/08/22 05:07: Sodium 141, Potassium 3.7, Chloride 110 H, Carbon Dioxide 25.0, Anion Gap 6, BUN 21 H, Creatinine 1.09 H, Estim Creat Clear Calc 34.00, Est GFR (MDRD) Af Amer 64, Est GFR (MDRD) Non-Af 53 L, BUN/Creatinine Ratio 19.3, Glucose 99, Calcium 8.6, Phosphorus 3.0, Magnesium 1.7 08/08/22 05:30: POC Glucose 104 Radiography Diagnostic Testing: Radiology Impression Small Bowel X-Ray 08/06/22 10:30 IMPRESSION: No evidence to suspect obstruction on the small bowel follow-through study. Findings suggest ileus with increased transit time of contrast to the colon. Transit time is somewhere between 12 and 24 hours Electronically Signed: Sunday Pagan MD at 11:05 EST , KUB X-Ray 08/08/22 05:17 IMPRESSION: Bowel gas pattern suggesting partial small bowel obstruction. Electronically Signed: Mateo Greenfield MD at 5:38 EST , Physical Exam Const oriented x3 Constitutional Narrative: Patient responds tangentially and indirectly to questioning despite persistent redirection Resp normal respiratory effort GI GI Narrative: Mildly distended, soft, minimally tender to palpation in lower abdominal quadrants. Nasogastric tube to intermittent wall suction with bilious output. Assessment & Plan Assessment/Plan (1) Complete small bowel obstruction: PLAN: Is a 72-year-old female who presents acutely for an associated nausea and abdominal pain. ER work-up pointed to a early high-grade small bowel obstruction with transition point in the pelvis on the right. Yesterday patient had small bowel series begun via her nasogastric tube. Today she, again, denies any return of bowel function. KUB was obtained again this morning and shows persistent dilation of proximal small bowel loops. This time radiology confirms my suspicion from yesterday that patient has evidence of a high-grade partial small bowel obstruction. Based on the suspicion and patient's lack of bowel function, I recommend proceeding for diagnostic laparoscopy. Patient is initially reluctant, but ultimately provides her consent to proceed. Plan: Neuro: As needed Dilaudid (will use sparingly given patient's current affect) Pulm/CV: Maintain head of bed elevation, aspiration precautions, hydralazine as needed, antihypertensives per hospitalist FEN/GI: Active monitoring of electrolytes while patient n.p.o., n.p.o. with NG tube to low intermittent wall suction, proceed to the OR today for diagnostic laparoscopy, adhesiolysis, possible laparotomy/possible bowel resection : No current issues Heme/ID: Trend CBC Endo: Diabetes management per hospitalist service Proph: SCDs, encourage ambulation Dispo: Continue inpatient stay Charges/Coding Visit Charges Inpatient E&M: 00945 Subs Hosp L2
[2022-08-08 09:40] LABS: Hemoglobin A1c 5.8 % (3.8-5.6)
[2022-08-08] MEDS: 0.9% Saline Lock 10 ML Syringe IV (13:12)
--- NOTE | 2022-08-08 13:48 | NURSING ---
Updated AC nurseLinh about patient's blood sugar.
--- NOTE | 2022-08-08 13:49 | NURSING ---
Off unit to OR at this time.
--- NOTE | 2022-08-08 14:16 | NURSING ---
[facility] called per patient's request. She states she has an appointment and wanted this RN to call and make them aware of what was going on in the hospital. The national sales representative from their office states that since she isn't able to make the appointment to have her injection she may have some vision changes. She will need to call to reschedule her injection when she is able to after hospital stay.
[2022-08-08 14:20] LABS: Bedside Glucose 67 mg/dL (74-106)
[2022-08-08] MEDS: Lactated Ringers 1,000 ML 15 ML IV (14:30)
[2022-08-08 15:11] LABS: Bedside Glucose 72 mg/dL (74-106)
[2022-08-08] MEDS: Cefazolin 2 GM in 0.9% Normal Saline 100 ML IV (15:21)
[2022-08-08] MEDS: Bupiv/Epi 0.25% 30 ML Vial (15:41)
--- NOTE | 2022-08-08 15:52 | CHAPLAIN ---
Type of Pastoral Visit ___ Initial Visit ___ Follow-up Visit ___ On-call Visit ___ General Patient Visit ___ Spiritual Assessment ___ Family Conference ___ Bereavement ___ Rapid Response ___ Code Blue ___ Other (describe below) Pastoral Care Referral From ___ Patient ___ Family ___ Nurse ___ Physician ___ Performance Improvement Director ___ Box Strapper ___ Other (describe below) Sacrament/Intervention ___ Active listening ___ Anointing ___ Pentecostalism ___ Bereavement ___ Communion ___ Brooke exploration ___ ___ Life review ___ Prayer ___ Reconciliation ___ Sacrament of Sick ___ Supportive presence ___ Wedding ___ Other (describe below) Pastoral Comments patient is out of the room and a calling card was left
--- NOTE | 2022-08-08 16:34 | PCM.OPRPT ---
Report of Operation Date of Procedure: 08/08/22 Pre-Operative Diagnosis: Partial small bowel obstruction Post-Operative Diagnosis: Partial small bowel obstruction secondary to internal hernia Surgery/Procedure Performed:: 1. Diagnostic laparoscopy 2. Adhesiolysis (30 minutes) Surgeon: Randell Sosa pediatric dietician: Lety Hobbs Type of Anesthesia: General/Supplemental Anesthesiologist: Freddy Ahmadi Special Medications: N/A Specimen's removed: N/A Drains: N/A Estimated Blood Loss (mL): 10 Description of Procedure: After appropriate identification in the preoperative holding area, the patient was brought to the operating room and placed supine on the operating room table. Antibiotics had been preoperatively administered. Patient was then induced with general endotracheal anesthetic and her nasogastric tube was connected to suction. A Tucker catheter was placed for temporary bladder decompression using sterile technique. The abdomen was prepped and draped in usual sterile fashion. Formal timeout was conducted to confirm both the patient and the procedure. A supraumbilical incision was made and carried down to the level of the fascia which was sharply opened. After opening the peritoneum in like fashion a finger sweep was made to confirm position, and a balloon trocar was placed and pneumoperitoneum was established to 15 mmHg. Patient was positioned in Trendelenburg with the left side down. 2 additional 5 mm trocars were placed in the left lower quadrant and suprapubic positions. The peritoneum was inspected and there were no signs of inadvertent injury from this Figueroa entry. The right lower quadrant was inspected and we could immediately see dilated/injected proximal small bowel loops. I then identified the cecum along the right lateral abdominal wall and from there identified the terminal ileum. Working hand overhand from the decompressed ileum to the jejunum, I identified the transition point in the bowel with an apparent internal hernia effect; the jejunal loops had coursed into the pelvis over a sigmoid colon that was abnormally adherent to the right pelvic sidewall and given the small aperture through which the bowel had proceeded it had created a void through which the small bowel could not extricate itself. With great caution this herniated bowel was brought back into the abdominal cavity using gentle traction from the laparoscopic graspers. The bowel appeared viable with active peristalsis, but there was a significant amount of red serous free fluid within the pelvis. To try to mitigate the risk for any future 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s, I used the laparoscopic LigaSure device to divide the adhesions between the anterior sigmoid colon and the pelvic sidewall. These initial adhesions were more specifically located between the right adnexa and the colon. The free fluid was suctioned free of the pelvis using the laparoscopic suction manager business planning and I once again inspected the previously herniated bowel/proximal small bowel. Identified active peristalsis within the entire segment and there appeared to be better perfusion even in the short time since its extrication. Encouraged by this observation, concluded the procedure. Pneumoperitoneum was then evacuated and the supraumbilical port site fascia was closed with #1 Vicryl in a [id number] fashion. The port sites were infiltrated with 30 mL local anesthetic (0.25% Marcaine with epinephrine). The skin of each port site was closed with 4-0 Monocryl in a subcuticular fashion. Steri-Strips and OpSite dressings were applied. The Tucker catheter was removed. Patient tolerated procedure well without any apparent 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s. They were awoken from general anesthetic without issue and transferred to post anesthesia care unit for ongoing recovery. Complications None Admit VTE Documentation VTE Mechan Device Prophylaxis: SCD's
[2022-08-08 19:01] LABS: Bedside Glucose 123 mg/dL (74-106)
[2022-08-09] VITALS (8 sets, daily range): BP systolic 136–174; BP diastolic 56–78; PULSE 81–87; RESP 16–18; TEMP 36.7–37.3; O2SAT 94–99
[2022-08-09] LABS: Bedside Glucose 143 mg/dL (74-106)
[2022-08-09] MEDS: Metoprolol Tartrate 5 MG/5 ML Vial IV ×3 (05:28→18:28)
[2022-08-09] MEDS: Insulin Lispro 100 UNIT/ML INSULN.PEN SC (05:28)
[2022-08-09 06:43] LABS: Absolute Lymphocyte Count 0.36 X10^3/uL (0.83-4.51); Absolute Neutrophil Count 5.7 X10^3/uL (2.0-7.7); Hematocrit 31.4 % (37-47); Hemoglobin 10.3 g/dL (12.0-15.0); Lymphocyte # 0.36 X10^3/ul (0.83-4.51); Lymphocyte % 5.5 % (19-41); Mean Corp Hgb Conc 32.8 g/dL (32-36); Mean Corpuscular Hgb 30.5 pg (27.0-32.0); Mean Corpuscular Volume 92.9 fL (81-99); Mean Platelet Vol. 10.7 fl (6.2-12.0); Monocyte# 0.43 X10^3/uL; Monocyte% 6.6 % (0-10); NRBC Flagged by Analyzer 0 % (0-5); Neutrophil # 5.69 X10^3/uL (2.7-7.7); Neutrophil % 87.4 % (47-70); POSITIVE DIFFERENTIAL YES; Platelet Count 122 K/mm3 (150-450); RBC Distribution Width CV 12.5 % (11.6-14.6); Red Blood Count 3.38 M/mm3 (4.2-5.4); White Blood Count 6.5 K/mm3 (4.4-11.0)
[2022-08-09 06:52] LABS: Differential Indicated SCAN CRITERIA MET
[2022-08-09 07:01] LABS: Bedside Glucose 154 mg/dL (74-106)
[2022-08-09 07:07] LABS: Anion Gap 11 (5-15); BUN 32 mg/dL (7-18); BUN/Creat Ratio 26.7 RATIO (10-20); Calcium,Total 8.3 mg/dL (8.5-10.1); Chloride 108 mmol/L (98-107); EST Glomerular Filtration Rate 47 mL/min (>60); Est Glom Filt Rate - Afr Amer 57 mL/min (>60); Estimated Creatinine Clearance 30.89 ml/min; Glucose 171 mg/dL (74-106); Phosphorus 4.3 mg/dL (2.5-4.9); Potassium 3.8 mmol/L (3.5-5.1); Sodium Level 140 mmol/L (136-145)
[2022-08-09 08:12] LABS: Differential Comment SCANNED
--- NOTE | 2022-08-09 09:39 | PCM.PN.SRG ---
Subjective Subjective Patient is a 72 y/o F I am following s/p diagnostic laparoscopy and lysis of adhesions with Dr. Sosa on 08/08/22. Patient tolerated the procedure well. Patient notes more throat discomfort this morning than abdominal pain. Patient denies flatus and bowel movements. Patient denies nausea and vomiting. Patient continues to have an NG tube. Objective Data Objective Data Vital Signs: Vital Signs Temp Pulse Resp BP Pulse Ox O2 Del Method O2 Flow Rate 98.4 F 87 16 144/68 H 98 Room Air 2 08/09/22 05:00 08/09/22 05:28 08/09/22 05:00 08/09/22 05:00 08/09/22 05:00 08/09/22 07:51 08/09/22 07:51 Oxygen Flow Rate (L/min) 2 Oxygen Delivery Method Room Air Weight: 144 lb 2 oz Body Mass Index (BMI) 28.1 Intake & Output: Intake and Output for Last 24 Hours 08/07/22 08/08/22 08/09/22 23:59 23:59 23:59 Intake Total 2185 / 2205 2385 / 2385 110 / 110 Output Total 850 / 950 450 / 450 Balance 1335 / 1255 1935 / 1935 110 / 110 Lab / Micro Data Result Diagrams: 08/09/22 06:20 08/09/22 06:20 Labs: Laboratory Results - last 24 hr 08/08/22 05:07: Hemoglobin A1c 5.8 H 08/08/22 13:04: POC Glucose 67 L 08/08/22 13:44: POC Glucose 72 L 08/08/22 18:38: POC Glucose 123 H 08/08/22 23:41: POC Glucose 143 H 08/09/22 05:23: POC Glucose 154 H 08/09/22 06:20: WBC 6.5, RBC 3.38 L, Hgb 10.3 L, Hct 31.4 L, MCV 92.9, MCH 30.5, MCHC 32.8, RDW Std Deviation 43.0, RDW Coeff of Rojelio 12.5, Plt Count 122 L, MPV 10.7, Immature Gran % (Auto) 0.500, Neut % (Auto) 87.4 H, Lymph % (Auto) 5.5 L, [place] % (Auto) 6.6, Eos % (Auto) 0.0, Baso % (Auto) 0.0, Absolute Neuts (auto) 5.7, Absolute Lymphs (auto) 0.36 L, Nucleated RBC % 0, Differential Comment SCANNED 08/09/22 06:20: Sodium 140, Potassium 3.8, Chloride 108 H, Carbon Dioxide 21.0, Anion Gap 11, BUN 32 H, Creatinine 1.20 H, Estim Creat Clear Calc 30.89, Est GFR (MDRD) Af Amer 57 L, Est GFR (MDRD) Non-Af 47 L, BUN/Creatinine Ratio 26.7 H, Glucose 171 H, Calcium 8.3 L, Phosphorus 4.3, Magnesium 2.0 Physical Exam Const alert and no apparent distress HEENT HEENT Narrative: NG tube intact GI GI Narrative: Abdominal incisions c/d/i. No erythema or infection noted Auscultation: hypoactive bowel sounds Palpation: soft and tender LLQ Assessment & Plan Assessment/Plan (1) Complete small bowel obstruction: PLAN: S/p diagnostic laparoscopy and lysis of adhesions Patient progressing well Discussed with patient this morning the importance of ambulation and sitting in a chair Discussed chewing gum and candy Labs were reviewed. Will order lab work for tomorrow morning Increase IV fluids to rate of 100 Continue NG tube until bowel function We will continue to follow with patient Start discharge planning Charges/Coding Visit Charges Inpatient E&M: 72404 Subs Hosp L1 (post-op)
[2022-08-09] MEDS: 0.9% Saline Lock 10 ML Syringe IV ×4 (11:37→21:45)
[2022-08-09 12:00] LABS: Bedside Glucose 113 mg/dL (74-106)
[2022-08-09] MEDS: BENZOCAINE/MENTHOL 1 LOZENGE MUCOUS MEM (15:36)
[2022-08-09] MEDS: HYDROmorphone 0.5 MG/0.5 ML SYRINGE 0.25 MG IV (15:41)
--- NOTE | 2022-08-09 16:13 | CHAPLAIN ---
Type of Pastoral Visit _x__ Initial Visit ___ Follow-up Visit ___ On-call Visit ___ General Patient Visit ___ Spiritual Assessment ___ Family Conference ___ Bereavement ___ Rapid Response ___ Code Blue ___ Other (describe below) Pastoral Care Referral From _x__ Patient ___ Family ___ Nurse ___ Physician ___ Home Furnishings Sales Representative ___ Energy Scheduler ___ Other (describe below) Sacrament/Intervention _x__ Active listening ___ Anointing ___ Restorationism ___ Bereavement ___ Communion _x__ Brooke exploration ___ _x__ Life review ___ Prayer ___ Reconciliation ___ Sacrament of Sick _x__ Supportive presence ___ Wedding ___ Other (describe below) Pastoral Comments chair alarm going off in this room and aides come to put pt back into bed; walked in to the room which was referred to this mechanical systems design engineer; pt is agitated, expressing displeasure at her restrictions for no food or water, the pain she has, and the unreasonable request to go to the bathroom before she is discharged; pt continues to be expressive after aides leave the room; time given to sit and bedside and have patient express herself; listening, calm assurance of care and presence, and attempts to divert attentions, find coping skills, and explore pt's brooke perspective for support; pt does calm down and becomes more relaxed during this encounter; pt does return a few times to topics of unreasonable doctors request and I'm leaving here and going to someplace else comments; pt has some difficultly thinking of things that would help her be calm; pt does not want to contact her brother/only family living due to he worries too much nor her current boyfriend because he doesn't understand due to mental limitations; pt states she used to feel better when going to grief counseling and to gnosticist but has stopped doing those activities; pt remains calmer and this mechanical systems design engineer left room; this mechanical systems design engineer talked with charge nurse about situation and comments made; charge nurse will investigate other medical measures for better calm and pain relief for patient
[2022-08-09 16:45] LABS: Bedside Glucose 97 mg/dL (74-106)
[2022-08-09] MEDS: hydrALAZINE 20 MG/ML Vial 10 MG IV (21:45)
[2022-08-10] VITALS (14 sets, daily range): BP systolic 116–179; BP diastolic 42–94; PULSE 77–99; RESP 16–18; TEMP 36.8–37.2; O2SAT 77–96
[2022-08-10 03:35] LABS: Bedside Glucose 108 mg/dL (74-106)
[2022-08-10] MEDS: 0.9% Saline Lock 10 ML Syringe IV ×5 (05:51→21:14)
[2022-08-10] MEDS: Metoprolol Tartrate 5 MG/5 ML Vial IV ×3 (05:52→17:36)
[2022-08-10 06:53] LABS: Absolute Lymphocyte Count 1.27 X10^3/uL (0.83-4.51); Basophil# 0.02 X10^3/uL; Basophil% 0.3 % (0-1); Eosinophil# 0.12 X10^3/uL; Hematocrit 31.4 % (37-47); Hemoglobin 10.1 g/dL (12.0-15.0); Lymphocyte # 1.27 X10^3/ul (0.83-4.51); Lymphocyte % 21.3 % (19-41); Mean Corp Hgb Conc 32.2 g/dL (32-36); Mean Corpuscular Hgb 30.6 pg (27.0-32.0); Mean Corpuscular Volume 95.2 fL (81-99); Mean Platelet Vol. 10.6 fl (6.2-12.0); Monocyte# 0.55 X10^3/uL; Monocyte% 9.2 % (0-10); NRBC Flagged by Analyzer 0 % (0-5); Neutrophil # 3.97 X10^3/uL (2.7-7.7); Neutrophil % 66.9 % (47-70); Platelet Count 160 K/mm3 (150-450); RBC Distribution Width CV 12.9 % (11.6-14.6)
[2022-08-10 07:10] LABS: Bedside Glucose 81 mg/dL (74-106)
--- NOTE | 2022-08-10 07:15 | RAD_ITS ---
STUDY: X-RAY - ABDOMEN/PELVIS REASON FOR EXAM: Female, 72 years old. Small bowel obstruction . Postoperative. TECHNIQUE: Single AP view of the abdomen / pelvis. COMPARISON: Comparison is made with prior study dated 08/08/2022. FINDINGS: Residual oral contrast is seen throughout the colon. There is less amount of oral contrast as compared to prior study. Soft tissue air is seen overlying the left side of the abdominal wall most likely secondary to postoperative changes. RAD/Abdomen Single View IMPRESSION: Residual oral contrast seen throughout the colon. Electronically Signed: Tanner Howell MD at 13:53 EST ,
[2022-08-10 07:40] LABS: Anion Gap 8 (5-15); BUN 32 mg/dL (7-18); BUN/Creat Ratio 28.8 RATIO (10-20); Calcium,Total 8.6 mg/dL (8.5-10.1); Chloride 111 mmol/L (98-107); Creatinine, Serum 1.11 mg/dL (0.55-1.02); EST Glomerular Filtration Rate 51 mL/min (>60); Est Glom Filt Rate - Afr Amer 62 mL/min (>60); Estimated Creatinine Clearance 33.39 ml/min; Glucose 91 mg/dL (74-106); Magnesium 2.3 mg/dL (1.6-2.6); Potassium 3.1 mmol/L (3.5-5.1); Sodium Level 143 mmol/L (136-145)
--- NOTE | 2022-08-10 07:41 | PN.SURG_ITS ---
Subjective Subjective Patient seen and examined during AM rounds. She is found sitting upright in bed. She reports that she is overall comfortable and denies any nausea, vomiting, or belching following the NG tube withdrawal last evening. She still denies any passage of flatus or bowel movements. She expresses hunger. Objective Data Objective Data Vital Signs: Vital Signs Temp Pulse Resp BP Pulse Ox O2 Del Method O2 Flow Rate 98.5 F 77 18 139/54 H 93 Room Air 2 08/10/22 05:46 08/10/22 05:59 08/10/22 05:46 08/10/22 05:59 08/10/22 05:46 08/10/22 05:46 08/09/22 07:51 Oxygen Flow Rate (L/min) 2 Oxygen Delivery Method Room Air Weight: 144 lb 2 oz Body Mass Index (BMI) 28.1 Intake & Output: Intake and Output for Last 24 Hours 08/08/22 08/09/22 08/10/22 23:59 23:59 23:59 Intake Total 2385 / 2385 1470 / 1470 Output Total 450 / 450 540 / 540 Balance 1935 / 1935 930 / 930 Lab / Micro Data Result Diagrams: 08/10/22 06:15 08/10/22 06:15 Labs: Laboratory Results - last 24 hr 08/09/22 06:20: Differential Comment SCANNED 08/09/22 11:35: POC Glucose 113 H 08/09/22 16:13: POC Glucose 97 08/10/22 00:05: POC Glucose 108 H 08/10/22 05:49: POC Glucose 81 08/10/22 06:15: WBC 6.0, RBC 3.30 L, Hgb 10.1 L, Hct 31.4 L, MCV 95.2, MCH 30.6, MCHC 32.2, RDW Std Deviation 44.0 H, RDW Coeff of Rojelio 12.9, Plt Count 160, MPV 10.6, Immature Gran % (Auto) 0.300, Neut % (Auto) 66.9, Lymph % (Auto) 21.3, [place] % (Auto) 9.2, Eos % (Auto) 2.0, Baso % (Auto) 0.3, Absolute Neuts (auto) 4.0, Absolute Lymphs (auto) 1.27, Nucleated RBC % 0 08/10/22 06:15: Sodium 143, Potassium 3.1 L, Chloride 111 H, Carbon Dioxide 24.0, Anion Gap 8, BUN 32 H, Creatinine 1.11 H, Estim Creat Clear Calc 33.39, Est GFR (MDRD) Af Amer 62, Est GFR (MDRD) Non-Af 51 L, BUN/Creatinine Ratio 28.8 H, Glucose 91, Calcium 8.6, Phosphorus 2.0 L, Magnesium 2.3 Physical Exam Const oriented x3 and no apparent distress Resp normal respiratory effort GI GI Narrative: Slightly more distended than yesterday, operative port sites appear stable with no erythema or drainage. Abdomen is soft and nontender to palpation x4 quadrants Assessment & Plan Assessment/Plan (1) Complete small bowel obstruction: PLAN: Is a 72-year-old female who presents acutely for an associated nausea and abdominal pain. ER work-up pointed to a early high-grade small bowel obstruction with transition point in the pelvis on the right. Patient was taken for diagnostic laparoscopy with findings confirming partial high-grade small bowel obstruction with internal hernia effect on 08/08/2022. Yesterday her NG tube output dropped off precipitously and she passed a clamp trial so the tube was removed, but has yet to report return of bowel function. Given her expressions of hunger and her success with removing the NG tube, I am inclined to begin sips of clears, but would like to check a KUB first. Patient encouraged to mobilize as tolerated to hasten return of bowel function. Plan: Neuro: As needed Dilaudid (will use sparingly given patient's current affect) Pulm/CV: Maintain head of bed elevation, aspiration precautions, scheduled metoprolol, hydralazine as needed, antihypertensives per hospitalist FEN/GI: Active monitoring of electrolytes while patient n.p.o.?replace potassium and phosphate today, advance to sips of clears, KUB showing resolution of obstructive pattern and both air and contrast in the colon : No current issues Heme/ID: Trend CBC Endo: Diabetes management per hospitalist service Proph: SCDs, encourage ambulation Dispo: Continue inpatient stay Charges/Coding Visit Charges Inpatient E&M: 84313 Subs Hosp L2
[2022-08-10 12:36] LABS: Bedside Glucose 80 mg/dL (74-106)
[2022-08-10] MEDS: Potassium Chloride 10mEq/100mL 10 MEQ/100 ML IV.SOLN. 100 MEQ IV BOLUS ×4 (13:48→16:54)
--- NOTE | 2022-08-10 13:56 | PN.HOSP_ITS ---
Subjective Subjective Tolerating sips and chips but has not had any bowel movements or flatus. Pain is controlled Objective Data Objective Data Vital Signs: Vital Signs Temp Pulse Resp BP Pulse Ox O2 Del Method O2 Flow Rate 98.2 F 83 16 160/76 H 95 Room Air 2 08/10/22 12:06 08/10/22 12:12 08/10/22 12:06 08/10/22 12:12 08/10/22 12:24 08/10/22 12:06 08/09/22 07:51 Oxygen Flow Rate (L/min) 2 Oxygen Delivery Method Room Air Weight: 144 lb 2 oz Body Mass Index (BMI) 28.1 Intake & Output: Intake and Output for Last 24 Hours 08/09/22 08/10/22 08/11/22 03:59 03:59 03:59 Intake Total 1455 / 1455 1360 / 1360 110 / 110 Output Total 350 / 350 540 / 540 Balance 1105 / 1105 820 / 820 110 / 110 Lab / Micro Data Result Diagrams: 08/10/22 06:15 08/10/22 06:15 Labs: Laboratory Results - last 24 hr 08/09/22 16:13: POC Glucose 97 08/10/22 00:05: POC Glucose 108 H 08/10/22 05:49: POC Glucose 81 08/10/22 06:15: WBC 6.0, RBC 3.30 L, Hgb 10.1 L, Hct 31.4 L, MCV 95.2, MCH 30.6, MCHC 32.2, RDW Std Deviation 44.0 H, RDW Coeff of Rojelio 12.9, Plt Count 160, MPV 10.6, Immature Gran % (Auto) 0.300, Neut % (Auto) 66.9, Lymph % (Auto) 21.3, [place] % (Auto) 9.2, Eos % (Auto) 2.0, Baso % (Auto) 0.3, Absolute Neuts (auto) 4.0, Absolute Lymphs (auto) 1.27, Nucleated RBC % 0 08/10/22 06:15: Sodium 143, Potassium 3.1 L, Chloride 111 H, Carbon Dioxide 24.0, Anion Gap 8, BUN 32 H, Creatinine 1.11 H, Estim Creat Clear Calc 33.39, Est GFR (MDRD) Af Amer 62, Est GFR (MDRD) Non-Af 51 L, BUN/Creatinine Ratio 28.8 H, Glucose 91, Calcium 8.6, Phosphorus 2.0 L, Magnesium 2.3 08/10/22 12:00: POC Glucose 80 Radiography Diagnostic Testing: Radiology Impression KUB X-Ray 08/10/22 07:15 IMPRESSION: Residual oral contrast seen throughout the colon. Electronically Signed: Tanner Howell MD at 13:53 EST , Physical Exam Narrative General: Alert, Oriented x3, Cooperative, No apparent distress HEENT: Atraumatic, PERRLA, EOMI, Normocephalic Oral: Moist Mucosa Neck: Supple, No JVD Lungs: Clear to auscultation, Normal air movement, No rhonchi, No wheeze, No rales Cardiovascular: Regular rate, Regular Rhythm, Normal S1, Normal S2, No murmurs Abdomen: Soft, Non Tender, Non-Distended, No Hepato-splenomegaly, incisions are clean, dry, intact Extremities: No edema, Capillary Refill Less than 3 Seconds Skin: No rashes, No breakdown Musculoskeletal: No Tenderness to Palpation of Joints or Extremities Neurological: Cranial nerves II-XII grossly intact, Motor Exam 5/5 strength throughout, Sensory exam intact to light touch and pain Psych/Mental Status: Flat affect, Appropriate Assessment & Plan Assessment/Plan (1) Complete small bowel obstruction: (2) Hypokalemia: PLAN: Plan 1. Complete small bowel obstruction status post repair on 08/08/2022 ? Slow recovery possible ileus ? Continue with sips and chips ? Encourage ambulation ? Pain is much improved 2. HTN/HLD/carotid disease ? We will hold her oral blood pressure medications until she is more stable and taking oral medications ? As needed pressure medications, her blood pressures are fairly well controlled 3. DM2/CKD 3a ? Continue with sips and chips ? Continue sliding scale insulin and Accu-Cheks ? We will make adjustments as necessary ? Renal function appears to be at baseline 4. GERD ? Stable ? Continue with p.o. DVT: SCDs Charges/Coding Visit Charges Inpatient E&M: 26155 Subs Hosp L2
--- NOTE | 2022-08-10 15:10 | CASEMGMT ---
DEVONTE CM in to pt room, pt sitting up in chair. Therapy recommending further therapy. Pt reports she has been ambulating in the halls and denies any homegoing needs.
--- NOTE | 2022-08-10 15:46 | CHAPLAIN ---
Type of Pastoral Visit ___ Initial Visit _x__ Follow-up Visit ___ On-call Visit ___ General Patient Visit ___ Spiritual Assessment ___ Family Conference ___ Bereavement ___ Rapid Response ___ Code Blue ___ Other (describe below) Pastoral Care Referral From _x__ Patient ___ Family ___ Nurse ___ Physician ___ Filleter ___ Baler ___ Other (describe below) Sacrament/Intervention _x__ Active listening ___ Anointing ___ Samaritan ___ Bereavement ___ Communion ___ Brooke exploration ___ ___ Life review ___ Prayer ___ Reconciliation ___ Sacrament of Sick _x__ Supportive presence ___ Wedding ___ Other (describe below) Pastoral Comments follow up to patient that had experienced anxiety yesterday; pt has tube out and was able to go to the bathroom and even begin to eat; pt reports all this which was what she wanted yesterday; pt complains about orders from doctors but admitted today that doctor was right; pt still focused on what she wants to eat now but is in better frame of mind; presence and assurance of good care given again
[2022-08-10 16:25] LABS: Bedside Glucose 77 mg/dL (74-106)
[2022-08-10] MEDS: hydrALAZINE 20 MG/ML Vial 10 MG IV (21:13)
[2022-08-10] MEDS: Acetaminophen 325 MG Tablet 650 MG PO (21:15)
[2022-08-10 22:11] LABS: Bedside Glucose 129 mg/dL (74-106)
[2022-08-11] VITALS (10 sets, daily range): BP systolic 137–157; BP diastolic 58–90; PULSE 70–86; RESP 16–18; TEMP 36.7–36.9; O2SAT 95–98
[2022-08-11] MEDS: Metoprolol Tartrate 5 MG/5 ML Vial IV ×2 (00:40→05:45)
[2022-08-11] MEDS: 0.9% Saline Lock 10 ML Syringe IV ×3 (00:40→08:53)
[2022-08-11 06:27] LABS: Absolute Lymphocyte Count 0.93 X10^3/uL (0.83-4.51); Basophil# 0.03 X10^3/uL; Basophil% 0.5 % (0-1); Eosinophil# 0.13 X10^3/uL; Eosinophils% 2.3 % (0-5); Hematocrit 32.6 % (37-47); Hemoglobin 10.7 g/dL (12.0-15.0); Lymphocyte # 0.93 X10^3/ul (0.83-4.51); Lymphocyte % 16.7 % (19-41); Mean Corp Hgb Conc 32.8 g/dL (32-36); Mean Corpuscular Hgb 30.6 pg (27.0-32.0); Mean Corpuscular Volume 93.1 fL (81-99); Mean Platelet Vol. 10.2 fl (6.2-12.0); Monocyte# 0.49 X10^3/uL; Monocyte% 8.8 % (0-10); NRBC Flagged by Analyzer 0 % (0-5); Neutrophil # 3.98 X10^3/uL (2.7-7.7); Neutrophil % 71.5 % (47-70); Platelet Count 171 K/mm3 (150-450); RBC Distribution Width CV 12.9 % (11.6-14.6); RBC Distribution Width SD 43.7 fl (35.1-43.9); White Blood Count 5.6 K/mm3 (4.4-11.0)
[2022-08-11 07:10] LABS: Anion Gap 10 (5-15); BUN 18 mg/dL (7-18); BUN/Creat Ratio 20.7 RATIO (10-20); Calcium,Total 8.5 mg/dL (8.5-10.1); Chloride 109 mmol/L (98-107); Creatinine, Serum 0.87 mg/dL (0.55-1.02); EST Glomerular Filtration Rate 68 mL/min (>60); Est Glom Filt Rate - Afr Amer 82 mL/min (>60); Glucose 105 mg/dL (74-106); Magnesium 1.9 mg/dL (1.6-2.6); Phosphorus 2.2 mg/dL (2.5-4.9); Potassium 3.4 mmol/L (3.5-5.1); Sodium Level 141 mmol/L (136-145)
[2022-08-11 07:11] LABS: Bedside Glucose 109 mg/dL (74-106)
--- NOTE | 2022-08-11 09:15 | PCM.PN.HOSP ---
Subjective Subjective Doing well, had bowel movements yesterday and today and she is also passing gas Objective Data Objective Data Vital Signs: Vital Signs Temp Pulse Resp BP Pulse Ox O2 Del Method O2 Flow Rate 98.1 F 76 16 156/81 H 96 Room Air 2 08/11/22 08:46 08/11/22 08:46 08/11/22 08:46 08/11/22 08:46 08/11/22 08:46 08/11/22 08:46 08/09/22 07:51 Oxygen Flow Rate (L/min) 2 Oxygen Delivery Method Room Air Weight: 144 lb 2 oz Body Mass Index (BMI) 28.1 Intake & Output: Intake and Output for Last 24 Hours 08/10/22 08/11/22 08/12/22 03:59 03:59 03:59 Intake Total 1360 / 1360 2019 300 / 300 Output Total 540 / 540 Balance 820 / 820 2019 300 / 300 Lab / Micro Data Result Diagrams: 08/11/22 06:05 08/11/22 06:05 Labs: Laboratory Results - last 24 hr 08/10/22 12:00: POC Glucose 80 08/10/22 16:00: POC Glucose 77 08/10/22 21:09: POC Glucose 129 H 08/11/22 06:05: WBC 5.6, RBC 3.50 L, Hgb 10.7 L, Hct 32.6 L, MCV 93.1, MCH 30.6, MCHC 32.8, RDW Std Deviation 43.7, RDW Coeff of Rojelio 12.9, Plt Count 171, MPV 10.2, Immature Gran % (Auto) 0.200, Neut % (Auto) 71.5 H, Lymph % (Auto) 16.7 L, [place] % (Auto) 8.8, Eos % (Auto) 2.3, Baso % (Auto) 0.5, Absolute Neuts (auto) 4.0, Absolute Lymphs (auto) 0.93, Nucleated RBC % 0 08/11/22 06:05: Sodium 141, Potassium 3.4 L, Chloride 109 H, Carbon Dioxide 22.0, Anion Gap 10, BUN 18, Creatinine 0.87, Estim Creat Clear Calc 42.60, Est GFR (MDRD) Af Amer 82, Est GFR (MDRD) Non-Af 68, BUN/Creatinine Ratio 20.7 H, Glucose 105, Calcium 8.5, Phosphorus 2.2 L, Magnesium 1.9 08/11/22 06:34: POC Glucose 109 H Radiography Diagnostic Testing: Radiology Impression KUB X-Ray 08/10/22 07:15 IMPRESSION: Residual oral contrast seen throughout the colon. Electronically Signed: Tanner Howell MD at 13:53 EST , Physical Exam Narrative General: Alert, Oriented x3, Cooperative, No apparent distress HEENT: Atraumatic, PERRLA, EOMI, Normocephalic Oral: Moist Mucosa Neck: Supple, No JVD Lungs: Clear to auscultation, Normal air movement, No rhonchi, No wheeze, No rales Cardiovascular: Regular rate, Regular Rhythm, Normal S1, Normal S2, No murmurs Abdomen: Soft, Non Tender, Non-Distended, No Hepato-splenomegaly, incisions are clean, dry, intact Extremities: No edema, Capillary Refill Less than 3 Seconds Skin: No rashes, No breakdown Musculoskeletal: No Tenderness to Palpation of Joints or Extremities Neurological: Cranial nerves II-XII grossly intact, Motor Exam 5/5 strength throughout, Sensory exam intact to light touch and pain Psych/Mental Status: Flat affect, Appropriate Assessment & Plan Assessment/Plan (1) Complete small bowel obstruction: (2) Hypokalemia: PLAN: Plan 1. Complete small bowel obstruction status post repair on 08/08/2022 ? Has had bowel movements ? Can likely advance her diet ? Encourage ambulation ? Pain is much improved ?She is stable for discharge from medical perspective 2. HTN/HLD/carotid disease ? Blood pressures are stable ? Can resume her home blood pressure medications today 3. DM2/CKD 3a ? Continue with sips and chips ? Continue sliding scale insulin and Accu-Cheks ? We will make adjustments as necessary ? Renal function appears to be at baseline 4. GERD ? Stable ? Continue with p.o. We will sign off DVT: SCDs Charges/Coding Visit Charges Inpatient E&M: 19610 Subs Hosp L2
[2022-08-11] MEDS: Metoprolol Tartrate 50 MG Tablet PO (09:25)
[2022-08-11] MEDS: amLODIPine 10 MG Tablet PO (09:25)
--- NOTE | 2022-08-11 10:53 | PCM.PN.SRG ---
Subjective Subjective Patient is evaluating sitting comfortably at the side of the bed. She denies abdominal pain. She notes multiple bowel movements and flatus. Patient is tolerating clear liquids well. She notes her sore throat has greatly improved. Objective Data Objective Data Vital Signs: Vital Signs Temp Pulse Resp BP Pulse Ox O2 Del Method O2 Flow Rate 98.1 F 76 16 156/81 H 96 Room Air 2 08/11/22 08:46 08/11/22 09:25 08/11/22 08:46 08/11/22 09:25 08/11/22 08:46 08/11/22 09:18 08/09/22 07:51 Oxygen Flow Rate (L/min) 2 Oxygen Delivery Method Room Air Weight: 144 lb 2 oz Body Mass Index (BMI) 28.1 Intake & Output: Intake and Output for Last 24 Hours 08/09/22 08/10/22 08/11/22 23:59 23:59 23:59 Intake Total 1470 / 1470 2019 300 / 300 Output Total 540 / 540 Balance 930 / 930 2019 300 / 300 Lab / Micro Data Result Diagrams: 08/11/22 06:05 08/11/22 06:05 Labs: Laboratory Results - last 24 hr 08/10/22 12:00: POC Glucose 80 08/10/22 16:00: POC Glucose 77 08/10/22 21:09: POC Glucose 129 H 08/11/22 06:05: WBC 5.6, RBC 3.50 L, Hgb 10.7 L, Hct 32.6 L, MCV 93.1, MCH 30.6, MCHC 32.8, RDW Std Deviation 43.7, RDW Coeff of Rojelio 12.9, Plt Count 171, MPV 10.2, Immature Gran % (Auto) 0.200, Neut % (Auto) 71.5 H, Lymph % (Auto) 16.7 L, [place] % (Auto) 8.8, Eos % (Auto) 2.3, Baso % (Auto) 0.5, Absolute Neuts (auto) 4.0, Absolute Lymphs (auto) 0.93, Nucleated RBC % 0 08/11/22 06:05: Sodium 141, Potassium 3.4 L, Chloride 109 H, Carbon Dioxide 22.0, Anion Gap 10, BUN 18, Creatinine 0.87, Estim Creat Clear Calc 42.60, Est GFR (MDRD) Af Amer 82, Est GFR (MDRD) Non-Af 68, BUN/Creatinine Ratio 20.7 H, Glucose 105, Calcium 8.5, Phosphorus 2.2 L, Magnesium 1.9 08/11/22 06:34: POC Glucose 109 H Radiography Diagnostic Testing: Radiology Impression KUB X-Ray 08/10/22 07:15 IMPRESSION: Residual oral contrast seen throughout the colon. Electronically Signed: Tanner Howell MD at 13:53 EST , Physical Exam Const alert, oriented x3 and no apparent distress GI soft to palpation and non-tender GI Narrative: Incisions c/d/i. No erythema or infection noted. Assessment & Plan Assessment/Plan (1) Complete small bowel obstruction: PLAN: Labs reviewed. Phos and potassium replaced. Increase diet Ready for discharge today Charges/Coding Visit Charges Inpatient E&M: 47534 Subs Hosp L1 (no charge)
[2022-08-11] MEDS: Potassium Chloride Oral Tablet 20 MEQ 40 MEQ PO (11:45)
--- NOTE | 2022-08-11 11:50 | DCINST_ITS ---
Discharge Instructions Diet Discharge Diet: Renal Diet Activity Discharge Activity: May Not Drive (3 days) Dressing / Incision Call your doctor if your incision/area has: Continuous Slow Oozing, Sudden Increased Bleeding, Increased Pain/ Swelling, Increased Redness, Foul Smelling Discharge and Swelling at the incision site Suture Line Care: Avoid Pulling/Pushing and Avoid Pinching/Bending Cleanse incision/area with: Soap & Water Follow Up Care Please Follow Up With: Randell Sosa MD When: 1 week Test Results: Test results from this visit will be discussed in further detail at your follow- up appointment, if applicable. Discharge Plan Admission Admit Date/Time: 08/06/22 07:31 Primary Reason for Your Visit: Complete small bowel obstruction from an internal hernia Attending Provider: Randell Sosa Primary Care Provider: Miladis Foote Consulting Providers: Gage Shah Discharge Orders/Prescriptions Prescriptions: Continued tramadol 50 MG tablet 50 mg PO DAILY glimepiride 4 MG tablet 1 tab PO DAILY metoprolol tartrate 50 MG tablet 50 mg PO BID indapamide 1.25 MG tablet 1.25 mg PO DAILY naproxen 500 MG tablet 500 mg PO BID PRN (Reason: Pain) cholecalciferol (vitamin D3) 50,000 UNIT capsule 1 tab PO QWEEK ondansetron 4 MG tablet 4 mg PO Q8H PRN PRN (Reason: Nausea) Qty: 6 0RF amlodipine 10 MG tablet 10 mg PO DAILY Qty: 60 0RF Carbamide Peroxide [Ear Drops] 15 ML drops 15 ml OT BID Qty: 150 0RF meclizine 25 MG tablet 25 mg PO Q6H PRN (Reason: Dizziness) Referrals / Follow Up: Miladis Foote MD [Primary Care Provider] - Randell Sosa MD [Med Staff - Active Staff] - (Call our office to schedule an appointment for 1 week follow-up) Disposition Disposition (needs filled in before D/C Order can be placed): Home, Self Care
--- NOTE | 2022-08-11 11:58 | DS.PCM_ITS ---
Providers Date of Admission: 08/06/22 Date of Discharge: 08/11/22 Primary Care Physician: Dr. Miladis Foote MD Consultations 08/06/22 12:40 Consult: Hospitalist Routine Consulting Provider: Gage Shah Reason for Consult: MEDICAL EMERGENT Consult: No MD Notified: Yes Date Notified: 08/06/22 Time Notified: 12:40 Method of Notification: Verbal Method of Consult:: In-Person Reason For Visit: SBO Diagnosis Discharge Diagnosis (1) Complete small bowel obstruction: Status: Acute Code(s): K56.601 - Complete intestinal obstruction, unspecified as to cause Plan: Labs reviewed. Phos and potassium replaced. Increase diet Ready for discharge today Medications at Discharge Home Medications cholecalciferol (vitamin D3) 1,250 mcg (50,000 unit) capsule 1 tab PO QWEEK Check with primary doctor 03/03/19 glimepiride 4 mg tablet 1 tab PO DAILY Check with primary doctor 03/03/19 indapamide 1.25 mg tablet 1.25 mg PO DAILY Check with primary doctor 03/03/19 metoprolol tartrate 50 mg tablet 50 mg PO BID Check with primary doctor 03/03/19 naproxen 500 mg tablet 500 mg PO BID PRN Pain 03/03/19 ondansetron 4 mg disintegrating tablet 4 mg PO Q8H PRN PRN Nausea #6 tabs 03/03/19 tramadol 50 mg tablet 50 mg PO DAILY 03/03/19 Carbamide Peroxide [Ear Drops] 15 ml OT BID #150 mL 03/06/19 amlodipine 10 mg tablet 10 mg PO DAILY #60 tabs 03/06/19 meclizine 25 mg tablet 25 mg PO Q6H PRN Dizziness 08/06/22 Hospital Course Operations - (Diagnostic laparoscopy. Adhesiolysis. ) Summary of Care Provided Minutes Spent on Discharge: 25 Hospital Course: Patient is a 72 y/o F who presented with a sudden 3 hour onset of abdominal pain. CT scan of the ab/pel was obtained and demonstrated early high-grade small bowel obstruction. NG tube was placed. Patient had a small bowel series which did not demonstrate any evidence of obstruction more consistent with an ileus type pattern. Patient was not able to pass any flatus or have a bowel movement and continued to present consistent with a small bowel obstruction. Patient's symptoms did not improve. Dr. Sosa performed a diagnostic laparoscopy and lysis of adhesions on 08/08/22. Findings included an internal hernia at the jejunum. Bowel was brought back into the abdominal cavity without any 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s. No resection of bowel was completed. Patient tolerated the procedure well. Patient was able to have the NG tube removed on 08/09/22 in the evening. Patient was started on sips of clears until bowel function had resumed. Patient passed flatus and have a bowel movement on 08/10/22. Patient's diet was increased to clear liquids. Hospitalist assisted with patient's co-morbidities throughout her hospitalization. Patient hospitalization was uncomplicated. Patient did have kiera ropriate replacement of her hypokalemia and hypophosphatemia. Upon discharge, patient tolerated a regular diet. She had multiple bouts of flatus and bowel movements. She denied having any abdominal pain, nausea, vomiting. Patient voiced readiness for discharge. Physical Exam GI normal to inspection, nondistended, normoactive bowel sounds GI Narrative: Incisions c/d/i. No erythema or infection noted. Weight / BMI Weight Weight: 144 lb 2 oz Body Mass Index (BMI) 28.1 ABG / Lab / Microbiology Data Result Diagrams: 08/11/22 06:05 08/11/22 06:05 Laboratory: Laboratory Results - last 24 hr 08/10/22 12:00: POC Glucose 80 08/10/22 16:00: POC Glucose 77 08/10/22 21:09: POC Glucose 129 H 08/11/22 06:05: WBC 5.6, RBC 3.50 L, Hgb 10.7 L, Hct 32.6 L, MCV 93.1, MCH 30.6, MCHC 32.8, RDW Std Deviation 43.7, RDW Coeff of Rojelio 12.9, Plt Count 171, MPV 10.2, Immature Gran % (Auto) 0.200, Neut % (Auto) 71.5 H, Lymph % (Auto) 16.7 L, [place] % (Auto) 8.8, Eos % (Auto) 2.3, Baso % (Auto) 0.5, Absolute Neuts (auto) 4.0, Absolute Lymphs (auto) 0.93, Nucleated RBC % 0 08/11/22 06:05: Sodium 141, Potassium 3.4 L, Chloride 109 H, Carbon Dioxide 22.0, Anion Gap 10, BUN 18, Creatinine 0.87, Estim Creat Clear Calc 42.60, Est GFR (MDRD) Af Amer 82, Est GFR (MDRD) Non-Af 68, BUN/Creatinine Ratio 20.7 H, Glucose 105, Calcium 8.5, Phosphorus 2.2 L, Magnesium 1.9 08/11/22 06:34: POC Glucose 109 H Radiography Diagnostic Testing: Radiology Impression KUB X-Ray 08/10/22 07:15 IMPRESSION: Residual oral contrast seen throughout the colon. Electronically Signed: Tanner Howell MD at 13:53 EST , D/C Instructions Discharge Diet: Renal Diet Call your doctor if your incision/area has: Continuous Slow Oozing, Sudden Increased Bleeding, Increased Pain/ Swelling, Increased Redness, Foul Smelling Discharge and Swelling at the incision site Suture Line Care: Avoid Pulling/Pushing and Avoid Pinching/Bending Cleanse incision/area with: Soap & Water Please Follow Up With: Randell Sosa MD When: 1 week Meaningful Use Info Meaningful Use Diagnoses (Choose all that apply): None applicable Discharge Plan Admission Admit Date/Time: 08/06/22 07:31 Primary Reason for Your Visit: Complete small bowel obstruction from an internal hernia Attending Provider: Randell Sosa Primary Care Provider: Miladis Foote Consulting Providers: Gage Sahh Discharge Orders/Prescriptions Prescriptions: Continued tramadol 50 MG tablet 50 mg PO DAILY glimepiride 4 MG tablet 1 tab PO DAILY metoprolol tartrate 50 MG tablet 50 mg PO BID indapamide 1.25 MG tablet 1.25 mg PO DAILY naproxen 500 MG tablet 500 mg PO BID PRN (Reason: Pain) cholecalciferol (vitamin D3) 50,000 UNIT capsule 1 tab PO QWEEK ondansetron 4 MG tablet 4 mg PO Q8H PRN PRN (Reason: Nausea) Qty: 6 0RF amlodipine 10 MG tablet 10 mg PO DAILY Qty: 60 0RF Carbamide Peroxide [Ear Drops] 15 ML drops 15 ml OT BID Qty: 150 0RF meclizine 25 MG tablet 25 mg PO Q6H PRN (Reason: Dizziness) Referrals / Follow Up: Miladis Foote MD [Primary Care Provider] - Randell Sosa MD [Med Staff - Active Staff] - (Call our office to schedule an appointment for 1 week follow-up) Disposition Disposition (needs filled in before D/C Order can be placed): Home, Self Care Charges/Coding Visit Charges Inpatient E&M: 65045 Disch Hosp (no charge)
--- NOTE | 2022-08-11 14:21 | PHA.DC.MR ---
Pharmacy Service has performed discharge medication reconciliation for this patient. No new medications at time of discharge review. Medications reviewed are from previously reported home medications. Home Medications cholecalciferol (vitamin D3) 1,250 mcg (50,000 unit) capsule 1 tab PO QWEEK Check with primary doctor 03/03/19 glimepiride 4 mg tablet 1 tab PO DAILY Check with primary doctor 03/03/19 indapamide 1.25 mg tablet 1.25 mg PO DAILY Check with primary doctor 03/03/19 metoprolol tartrate 50 mg tablet 50 mg PO BID Check with primary doctor 03/03/19 naproxen 500 mg tablet 500 mg PO BID PRN Pain 03/03/19 ondansetron 4 mg disintegrating tablet 4 mg PO Q8H PRN PRN Nausea #6 tabs 03/03/19 tramadol 50 mg tablet 50 mg PO DAILY 03/03/19 Carbamide Peroxide [Ear Drops] 15 ml OT BID #150 mL 03/06/19 amlodipine 10 mg tablet 10 mg PO DAILY #60 tabs 03/06/19 meclizine 25 mg tablet 25 mg PO Q6H PRN Dizziness 08/06/22 The patient's discharge medication list was reviewed for discrepancies and discrepancies were resolved.
--- NOTE | 2022-08-11 15:11 | NURSING ---
AT D/C PT REFUSED TO CALL FOR RIDE- REFUSED TO LET THIS RN HELP HER FIND A RIDE- PT SAID SHE WILL CALL SOMEONE TO GET HER WHEN SHE GETS DOWNSTAIRS. PT STATED STOP TREATING ME LIKE A CHILD THIS RN TOLD PT IT'S WAS FOR HER OWN SAFETY- PT REFUSED AND LEFT IN THE ELEVATOR.
[2022-08-11 16:16] LABS: Bedside Glucose 156 mg/dL (74-106)
== END 2022-08-11 15:08 | disposition home or self-care (01) | DRG 337 ==
LOC: ED 05:36 → MS3 07:38
PROVIDERS: Anesthesiology; Family Medicine; Physician Assistant; Admitting Provider Surgery; Emergency Provider Emergency Medicine; PCP Internal Medicine; Visit Provider Surgery
PROC: (CPT 49320; principal; 2022-08-07 09:20)
PROC: 0DN84ZZ Release Small Intestine, Percutaneous Endoscopic Approach (ICD-10-PCS; CPT 49320; principal; 2022-08-08 13:50)
DX: K56.51 Intestinal adhesions [bands], with partial obstruction (principal); E83.39 Other disorders of phosphorus metabolism; E11.22 Type 2 diabetes mellitus with diabetic chronic kidney disease; N18.31 Chronic kidney disease, stage 3a; Z79.4 Long term (current) use of insulin; I12.9 Hypertensive chronic kidney disease with stage 1 through stage 4 chronic kidney disease, or unspecified chronic kidney disease; E87.6 Hypokalemia; E78.5 Hyperlipidemia, unspecified; I65.23 Occlusion and stenosis of bilateral carotid arteries; K21.9 Gastro-esophageal reflux disease without esophagitis; Z66 Do not resuscitate; Z90.711 Acquired absence of uterus with remaining cervical stump; Z79.84 Long term (current) use of oral hypoglycemic drugs; Z79.899 Other long term (current) drug therapy; Z79.891 Long term (current) use of opiate analgesic
CPT/HCPCS: 36415; 74018; 74177; 74250; 80048; 80053; 82150; 82962; 83036; 83690; 83735; 84100; 85025; 97110; 97116; 97162; 97165; 97530; 97535; 97802; 97803; 99285; J7030; J7050; J7120; Q9967; A4216; J0330; J2405

== ENCOUNTER 2023-11-22 22:43 | Emergency (ER) | payer MEDICARE, SELFPAY ==
[2023-11-22 22:44] VITALS: BP 177/72; PULSE 96; RESP 18; TEMP 36.9; O2SAT 98; BMI 27.0
--- NOTE | 2023-11-22 23:07 | EKG12_ITS ---
Test Reason : CP Blood Pressure : / mmHG Vent. Rate : 093 BPM Atrial Rate : 093 BPM P-R Int : 136 ms QRS Dur : 136 ms QT Int : 412 ms P-R-T Axes : 053 263 050 degrees QTc Int : 512 ms Atrial-sensed ventricular-paced rhythm Abnormal ECG Confirmed by RODNEY IRVIN, HI ([id number]), mapping editor [place] ([id number]) on 11/27/2023 11:40:44 AM Referred By: KELLIE Confirmed By:HI STEVENS MD
--- NOTE | 2023-11-22 23:09 | RAD_ITS ---
INDICATION: chest pain EXAMINATION/TECHNIQUE: X-RAY - portable upright AP chest x-ray COMPARISON: 04/22/2022 FINDINGS: LINES/DEVICES: Transvenous pacemaker. LUNGS: No consolidation, edema or effusion. No pneumothorax. MEDIASTINUM AND CARDIOVASCULAR STRUCTURES: Cardiac silhouette stable at upper normal limits. BONES AND SOFT TISSUES: No acute changes. RAD/Chest 1 View (Portable) IMPRESSION: No radiographic evidence of acute cardiopulmonary disease. Electronically Signed: Giles Ospina MD at 23:42 EDT ,
[2023-11-22 23:18] LABS: Absolute Lymphocyte Count 1.08 X10^3/uL (0.83-4.51); Absolute Neutrophil Count 4.7 X10^3/uL (2.0-7.7); Basophil# 0.04 X10^3/uL; Basophil% 0.6 % (0-1); Eosinophil# 0.26 X10^3/uL; Hemoglobin 10.7 g/dL (12.0-15.0); Lymphocyte # 1.08 X10^3/ul (0.83-4.51); Lymphocyte % 16.4 % (19-41); Mean Corp Hgb Conc 32.4 g/dL (32-36); Mean Corpuscular Hgb 30.1 pg (27.0-32.0); Mean Corpuscular Volume 92.7 fL (81-99); Monocyte# 0.48 X10^3/uL; Monocyte% 7.3 % (0-10); NRBC Flagged by Analyzer 0 % (0-5); Neutrophil # 4.68 X10^3/uL (2.7-7.7); Neutrophil % 71.2 % (47-70); Platelet Count 186 K/mm3 (150-450); RBC Distribution Width CV 13.1 % (11.6-14.6); RBC Distribution Width SD 44.5 fl (35.1-43.9); Red Blood Count 3.56 M/mm3 (4.2-5.4); White Blood Count 6.6 K/mm3 (4.4-11.0)
[2023-11-22 23:40] LABS: Anion Gap 7 (5-15); BUN 25 mg/dL (7-18); BUN/Creat Ratio 18.4 RATIO (10-20); Calcium,Total 9.7 mg/dL (8.5-10.1); Chloride 111 mmol/L (98-107); Creatinine, Serum 1.36 mg/dL (0.55-1.02); EST Glomerular Filtration Rate 41 mL/min (>60); Est Glom Filt Rate - Afr Amer 49 mL/min (>60); Estimated Creatinine Clearance 30.94 ml/min; Glucose 221 mg/dL (74-106); Potassium 3.5 mmol/L (3.5-5.1); Sodium Level 141 mmol/L (136-145); Troponin-I HS (w/2H Reflex) 15 pg/mL (3.0-54.0)
[2023-11-22] MEDS: Lidocaine 2% Viscous15 ML UDC 15 ML PO (23:42)
[2023-11-22] MEDS: Mag Hydrox/Al Hydrox/Simeth 30 ML UDC PO (23:42)
[2023-11-22 23:43] VITALS: BP 172/64; PULSE 87; RESP 12; O2SAT 99
[2023-11-23] VITALS: BP 149/77; PULSE 82; RESP 20; O2SAT 97
[2023-11-23 01:00] VITALS: BP 142/61; PULSE 86; RESP 14; O2SAT 95
[2023-11-23 01:13] LABS: Reflex Troponin-HS? (from REC) Y
[2023-11-23 01:37] LABS: Troponin-I HS 18 pg/mL (3.0-54.0)
[2023-11-23 02:00] VITALS: BP 136/57; PULSE 81; RESP 14; O2SAT 98
--- NOTE | 2023-11-23 02:19 | EX.ED.DYSGE1 ---
HPI History of Present Illness Chief Complaint: Chest Pain Informant: patient and spouse/S.O. Narrative Narrative: Patient is a 71-year-old female with past medical history of hypertension [id number] diabetes and recent pacemaker placement. Patient states that she has only been discharged for a few days since her recent pacemaker placement. Today she decided to walk more than she has in the last few weeks and then after eating and felt some discomfort in her upper abdomen/lower chest. Because of her recent procedure she was concerned this could be cardiac in nature and therefore comes to the hospital for evaluation. She states that there is no associated nausea vomiting diarrhea diaphoresis or shortness of breath. [facility] Medical History (Updated 11/23/23 @ 22:[address] Nabor Santos, DO) Partial small bowel obstruction Carotid stenosis, bilateral GERD (gastroesophageal reflux disease) Cardiac murmur Osteoarthritis HTN (hypertension) Diabetes Vertigo Home Medications ?Medication ?Instructions ?Recorded ?Last Taken ?Type cholecalciferol (vitamin D3) 1,250 1 tab PO QWEEK Check with primary 03/03/19 Unknown History mcg (50,000 unit) capsule doctor glimepiride 4 mg tablet 1 tab PO DAILY Check with primary 03/03/19 08/06/22 History doctor indapamide 1.25 mg tablet 1.25 mg PO DAILY Check with 03/03/19 08/05/22 History primary doctor metoprolol tartrate 50 mg tablet 50 mg PO BID Check with primary 03/03/19 08/06/22 History doctor naproxen 500 mg tablet 500 mg PO BID PRN Pain 03/03/19 Unknown History ondansetron 4 mg disintegrating 4 mg PO Q8H PRN PRN Nausea #6 tabs 03/03/19 Unknown Rx tablet tramadol 50 mg tablet 50 mg PO DAILY 03/03/19 Unknown History Carbamide Peroxide [Ear Drops] 15 ml OT BID #150 mL 03/06/19 Unknown Rx amlodipine 10 mg tablet 10 mg PO DAILY #60 tabs 03/06/19 Unknown Rx meclizine 25 mg tablet 25 mg PO Q6H PRN Dizziness 08/06/22 Unknown History Allergy/AdvReac Type Severity Reaction Status Date / Time furosemide (From Lasix) Allergy Hives Verified 08/18/22 14:32 Sulfa (Sulfonamide Allergy Hives Verified 08/18/22 14:32 Antibiotics) Family History Mother Heart disease Hypertension Diabetes Father Heart disease Hypertension Diabetes Surgical History (Updated 08/18/22 @ 14:33 by Nimisha Solis) History of laparoscopy History of dilation and curettage History of partial hysterectomy Social History household members: none Smoking Status: Never smoker alcohol intake: never substance use type: does not use ROS ROS ED Constitutional Constitutional ED: Denies chills or fever(s) ENT ENT ED: Denies sore throat Cardiovascular Cardiovascular: Reports chest pain; Denies palpitations or racing heartbeat Respiratory/Chest Respiratory/Chest: Denies cough or dyspnea Gastrointestinal Gastrointestinal: Reports abdominal pain; Denies diarrhea, nausea or vomiting Genitourinary Genitourinary ED: Denies dysuria Musculoskeletal Musculoskeletal: Denies myalgias Integumentary Denies rash Neurologic Neurologic: Denies headache(s) Hematologic/Lymphatic Hematologic/Lymphatic: Denies easy bleeding or easy bruising EXAM Physical Exam Const Vital Signs: 11/22/23 22:44 11/22/23 23:07 11/22/23 23:43 Temperature 98.4 F Temperature Source Temporal Pulse Rate 96 87 Respiratory Rate 18 12 Blood Pressure 177/72 H 172/64 H Blood Pressure Mean 107 100 Pulse Ox 98 99 Oxygen Delivery Method Room Air Room Air 11/23/23 00:00 11/23/23 01:00 11/23/23 02:00 Temperature Temperature Source Pulse Rate 82 86 81 Respiratory Rate 20 H 14 14 Blood Pressure 149/77 H 142/61 H 136/57 H Blood Pressure Mean 101 88 83 Pulse Ox 97 95 98 Oxygen Delivery Method Room Air Room Air Room Air 11/23/23 02:30 Temperature 97.4 F L Temperature Source Pulse Rate 81 Respiratory Rate 17 Blood Pressure 152/74 H Blood Pressure Mean 100 Pulse Ox 98 Oxygen Delivery Method Positive well nourished and well developed General Appearance ED: well developed; Negative for pallor HEENT HEENT Narrative: Normocephalic atraumatic No signs of infection noted in the posterior pharynx Eyes PERRL and EOMs intact bilaterally General Eye ED: Negative for pale conjunctiva or scleral icterus Neck supple and no JVD Neck Narrative: No nuchal rigidity or meningeal signs noted No crepitance palpated Chest Wall Chest Narrative: Surgical incision to the left anterior chest wall is clean dry and intact without secondary changes to suggest infection Resp normal respiratory effort and clear to auscultation bilaterally Cardio regular rate and regular rhythm GI normal to inspection, nondistended, normoactive bowel sounds, non-tender, non-distended and no masses GI Narrative: No voluntary guarding or rigidity or pulsatile mass Auscultation: normoactive bowel sounds Palpation: soft Extremity normal to inspection Extremity Narrative: No asymmetric edema no pitting edema negative Homans' sign bilaterally Neuro oriented x3, CN's II-XII intact bilaterally and no sensory deficits noted Sensorium / Orientation: alert Motor Exam: strength 5/5 throughout Psych Psych Narrative: Patient has a nervous/anxious affect Skin no rashes or lesions noted Skin Narrative: Postsurgical wound to the left anterior chest wall that is clean dry and intact without secondary findings to suggest infection General Skin Exam: Negative for jaundice or pallor MDM MDM MDM Narrative Medical decision making narrative: Patient arrived to the ER hypertensive but has a past medical history of this. Her symptoms could be related to acute coronary syndrome versus chest wall pain versus gastritis versus pneumonia or pneumothorax or pleural effusion. Secondary to this a basic workup was performed. The patient's troponin was 15 and 18 and that coupled with her paced rhythm indicates no signs of acute coronary syndrome or derangement to her pacemaker function. Chest x-ray also showed no signs of pneumonia or fluid or break to the pacemaker leads. The patient was treated with a GI cocktail and had resolution of her symptoms and her blood pressure improved as well. Therefore at this time as symptoms do not appear to be related to a cardiac or lung pathology but most likely a gastritis secondary to her food ingestion I do not feel there is need for repeat evaluation in the ER or admission and she is safe for discharge. History & Record Review Discussion w/independent historian: Patient and Significant other Lab Data Attestation: I reviewed the patient's lab results. Labs: Laboratory Results - last 24 hr 11/22/23 11/23/23 23:10 01:15 WBC 6.6 RBC 3.56 L Hgb 10.7 L Hct 33.0 L MCV 92.7 MCH 30.1 MCHC 32.4 RDW Std Deviation 44.5 H RDW Coeff of Rojelio 13.1 Plt Count 186 MPV 10.0 Immature Gran % (Auto) 0.500 Neut % (Auto) 71.2 H Lymph % (Auto) 16.4 L Amelia % (Auto) 7.3 Eos % (Auto) 4.0 Baso % (Auto) 0.6 Absolute Neuts (auto) 4.7 Absolute Lymphs (auto) 1.08 Nucleated RBC % 0 Sodium 141 Potassium 3.5 Chloride 111 H Carbon Dioxide 23.0 Anion Gap 7 BUN 25 H Creatinine 1.36 H Estim Creat Clear Calc 30.94 Est GFR (MDRD) Af Amer 49 L Est GFR (MDRD) Non-Af 41 L BUN/Creatinine Ratio 18.4 Glucose 221 H Calcium 9.7 Troponin I High Sens 15 18 Radiography Diagnostic Testing: Clinical Impression(s) from Imaging Studies Chest X-Ray 11/22/23 23:09 IMPRESSION: No radiographic evidence of acute cardiopulmonary disease. Electronically Signed: Giles Ospina MD at 23:42 EDT Reading Location ID and State: [address] [place] [address] Tel , Service support , Discharge Plan Triage Chief Complaint: Chest Pain ED Provider: Nabor Santos Dx/Rx/DC Orders Clinical Impression: Nonspecific chest pain, HTN (hypertension), Carotid stenosis, bilateral, Diabetes Instructions: ED Chest Pain, Uncertain Cause Prescriptions: No Action tramadol 50 MG tablet 50 mg PO DAILY glimepiride 4 MG tablet 1 tab PO DAILY metoprolol tartrate 50 MG tablet 50 mg PO BID indapamide 1.25 MG tablet 1.25 mg PO DAILY naproxen 500 MG tablet 500 mg PO BID PRN (Reason: Pain) cholecalciferol (vitamin D3) 50,000 UNIT capsule 1 tab PO QWEEK ondansetron 4 MG tablet 4 mg PO Q8H PRN PRN (Reason: Nausea) Qty: 6 0RF amlodipine 10 MG tablet 10 mg PO DAILY Qty: 60 0RF Carbamide Peroxide [Ear Drops] 15 ML drops 15 ml OT BID Qty: 150 0RF meclizine 25 MG tablet 25 mg PO Q6H PRN (Reason: Dizziness) Primary Care Provider: Miladis Foote Referrals: Miladis Foote MD [Primary Care Provider] - Activity Restrictions/Additional Instructions: Please continue all of your home medications as directed by your doctor and return to the ER should you have any further concerns Print Language: Citizen [place] Disposition Disposition: Home, Self Care Discharge Date/Time: 11/23/23 02:34
[2023-11-23 02:30] VITALS: BP 152/74; PULSE 81; RESP 17; TEMP 36.3; O2SAT 98
== END 2023-11-23 02:34 | disposition home or self-care (01) ==
PROVIDERS: Emergency Provider Emergency Medicine; PCP Internal Medicine; Visit Provider Emergency Medicine
DX: R07.9 Chest pain, unspecified (principal); E11.9 Type 2 diabetes mellitus 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s; I10 Essential (primary) hypertension; I65.23 Occlusion and stenosis of bilateral carotid arteries; Z95.0 Presence of cardiac pacemaker; Z79.899 Other long term (current) drug therapy; Z79.84 Long term (current) use of oral hypoglycemic drugs; Z90.710 Acquired absence of both cervix and uterus
CPT/HCPCS: 71045; 80048; 84484; 85025; 93005; 99284; A4216

== ENCOUNTER → 2024-09-25 | Outpatient (CLI) | payer MEDICARE, SELFPAY ==
[2024-09-25 12:57] LABS: Hematocrit 29.3 % (37-47); Hemoglobin 9.7 g/dL (12.0-15.0); Mean Corp Hgb Conc 33.1 g/dL (32-36); Mean Corpuscular Hgb 31.2 pg (27.0-32.0); Mean Corpuscular Volume 94.2 fL (81-99); Mean Platelet Vol. 11.1 fl (6.2-12.0); Platelet Count 158 K/mm3 (150-450); RBC Distribution Width CV 12.9 % (11.6-14.6); RBC Distribution Width SD 44.2 fl (35.1-43.9); Red Blood Count 3.11 M/mm3 (4.2-5.4)
[2024-09-25 13:24] LABS: Vitamin B12 279 pg/mL (180-914); Vitamin D,25 Hydroxy 33.2 ng/mL (30-100)
[2024-09-25 13:26] LABS: ALB/GLOB Ratio 1.7 RATIO (0.9-2.4); AST(SGOT) 17 U/L (<=31); Alanine Aminotransfer ALT/SGPT 12 U/L (<=34); Albumin, Serum 4.1 g/dL (3.4-4.8); Alkaline Phosphatase 74 U/L (35-104); Anion Gap 11 (5-15); BUN 16 mg/dL (4-19); BUN/Creat Ratio 17.3 RATIO (10-20); Calcium,Total 9.3 mg/dL (7.6-11.0); Carbon Dioxide 22.9 mmol/L (21.0-32.0); Chloride 110 mmol/L (98-108); Creatinine, Serum 0.91 mg/dL (0.70-1.20); EST Glomerular Filtration Rate 67 (>60); Globulin 2.5 g/dL (2.2-4.2); Glucose 211 mg/dL (70-99); Potassium 2.8 mmol/L (3.3-5.1); Protein, Total 6.6 g/dL (5.9-8.4); Sodium Level 145 mmol/L (133-145); Total Bilirubin 0.43 mg/dL (0.00-1.30)
== END | disposition home or self-care (01) ==
LOC: BIMLAB 09:32
PROVIDERS: PCP Internal Medicine; Referring Provider Physician Assistant; Visit Provider Physician Assistant
DX: E55.9 Vitamin D deficiency, unspecified (principal); E11.9 Type 2 diabetes mellitus 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s; I10 Essential (primary) hypertension; R63.4 Abnormal weight loss
CPT/HCPCS: 36415; 80053; 82306; 82607; 84443; 85027

== ENCOUNTER → 2024-11-18 | Outpatient (CLI) | payer MEDICARE, SELFPAY ==
[2024-11-18 16:42] LABS: Absolute Lymphocyte Count 1.07 X10^3/uL (0.83-4.51); Absolute Neutrophil Count 2.4 X10^3/uL (2.0-7.7); Basophil# 0.02 X10^3/uL; Basophil% 0.5 % (0-1); Eosinophil# 0.18 X10^3/uL; Eosinophils% 4.4 % (0-5); Hematocrit 25.7 % (37-47); Hemoglobin 7.9 g/dL (12.0-15.0); Lymphocyte # 1.07 X10^3/ul (0.83-4.51); Lymphocyte % 26.3 % (19-41); Mean Corp Hgb Conc 30.7 g/dL (32-36); Mean Corpuscular Hgb 29.3 pg (27.0-32.0); Mean Corpuscular Volume 95.2 fL (81-99); Mean Platelet Vol. 11.1 fl (6.2-12.0); Monocyte% 9.8 % (0-10); NRBC Flagged by Analyzer 0 % (0-5); Platelet Count 174 K/mm3 (150-450); RBC Distribution Width CV 12.4 % (11.6-14.6); RBC Distribution Width SD 43.1 fl (35.1-43.9); White Blood Count 4.1 K/mm3 (4.4-11.0)
[2024-11-18 17:41] LABS: Anion Gap 13 (5-15); BUN 23 mg/dL (4-19); BUN/Creat Ratio 22.4 RATIO (10-20); Calcium,Total 9.6 mg/dL (7.6-11.0); Carbon Dioxide 22.4 mmol/L (21.0-32.0); Chloride 107 mmol/L (98-108); Creatinine, Serum 1.04 mg/dL (0.70-1.20); EST Glomerular Filtration Rate 57 (>60); Glucose 112 mg/dL (70-99); Potassium 4.2 mmol/L (3.3-5.1); Sodium Level 142 mmol/L (133-145)
== END | disposition home or self-care (01) ==
LOC: BIMLAB 14:56
PROVIDERS: PCP Internal Medicine; Referring Provider Internal Medicine; Visit Provider Internal Medicine
DX: E87.6 Hypokalemia (principal); I10 Essential (primary) hypertension; D64.9 Anemia, unspecified
CPT/HCPCS: 36415; 80048; 85025

== ENCOUNTER 2025-05-18 17:47 | Inpatient (IN) | payer MEDICARE, SELFPAY ==
[2025-05-18] VITALS (16 sets, daily range): BP systolic 122–164; BP diastolic 54–101; PULSE 65–110; RESP 16–24; TEMP 36.5–36.9; O2SAT 10–100; BMI 24.9
--- OUTSIDE RECORDS SUMMARY | 2025-05-18 17:56 | XMS RPT_ITS | CCD ---
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 Carmen Johnson Primary Care Provider Dr. Ezequiel Dent Emergency Provider Dr. Mitch Sosa Admit Provider Dr. Mitch Sosa Referring Provider Dr. Mitch Sosa Other Provider Dr. Susan Isidro Attending Provider Dr. Polo Rincon Attending Provider Dr. Mitch Sosa Attending Provider Casi DIAS, PAEunice Gordon Attending Provider Dr. Gage Shah Attending Provider Dr. Gage Shah Other Provider Carmen Johnson MD Primary Care Provider [facility], Keti Unavailable Carmen Johnson MD Primary Care Provider Harkless DO, Corwin Unavailable Carmen Johnson MD Unavailable Provider Александр IRVIN Unavailable Unavailable Muro WAREHOUSE OPERATIONS ASSOCIATE.PERLITE GRINDER, Jordyn Unavailable Jaycob WAREHOUSE OPERATIONS ASSOCIATE.LACQUER COATER, Lissett Unavailable Jaycob WAREHOUSE OPERATIONS ASSOCIATE.LACQUER COATER, Lissett Unavailable Jaycob WAREHOUSE OPERATIONS ASSOCIATE.LACQUER COATER, Lissett Unavailable Alex IRVIN, Dr. Carmen Wynn Primary Care Provider Alex IRVIN, Dr. Carmen Wynn Referring Provider Ryan Cali Attending Provider Rosie IRVIN, Dr. Garland Primary Care Provider Ryan Cali Referring Provider Ryan Kamara Primary Care Provider Carmen Johnson MD Primary Care Provider TALAMPAS, CARMEN D Primary Care Unavailable TALAMPAS, CARMEN D Attending Unavailable TALAMPAS, CARMEN D Referring Unavailable TALAMPAS, CARMEN D Primary Care Unavailable TALAMPAS, CARMEN D Attending Unavailable TALAMPAS, CARMEN D Primary Care Unavailable TALAMPAS, CARMEN D Primary Care Unavailable TALAMPAS, CARMEN D Primary Care Unavailable TALAMPAS, CARMEN D Primary Care Unavailable SELF Referring Unavailable XIMENA MACIEL Attending Unavailable TALAMPAS, CARMEN D Primary Care Unavailable TALAMPAS, CARMEN D Primary Care Unavailable TALAMPAS, CARMEN D Primary Care Unavailable HENOK ESPINOSA Attending Unavailable TALAMPAS, CARMEN D Primary Care Unavailable EVELIN YANG Attending Unavailable Rosie IRVIN, Dr. Garland Attending Provider Rosie IRVIN, Dr. Garland Referring Provider Gill Velez Attending Unavailable Talampas, Carmen D Referring Unavailable Rosie, Gill Primary Care Unavailable Gill Velez Referring Unavailable Rosie, Gill Primary Care Unavailable Gill Velez Attending Unavailable Ryan Kamara Attending Unavailable Ryan Kamara Referring Unavailable Gill Velez Primary Care Unavailable Talampas, Carmen D Primary Care Unavailable Juanampas, Carmen D Referring Unavailable Ryan Kamara Attending Unavailable Allergies Allergy Classification Reported Allergen(s) Allergy Type Date of Onset Reaction(s) Facility Amoxicillin / Clavulanate (6 sources) Amoxicillin / Clavulanate Drug Allergy 02-27-20 05 GI Upset [facility] Angiotensin Converting Enzyme (CATINA) Inhibitors (6 sources) Ramipril Drug Allergy 07-19-19 06 Cough [facility] Cholesterol Absorption Inhibitors (6 sources) ezetimibe Drug Allergy 07-19-19 06 Diarrhea [facility] Diclofenac / miSOPROStol (6 sources) Diclofenac / miSOPROStol Drug Allergy 07-19-19 06 GI Upset [facility] Fenofibrate (6 sources) Fenofibrate Drug Allergy 07-19-19 06 [facility] Furosemide (6 sources) Furosemide Drug Allergy 03-30-20 05 [facility] HMG-CoA Reductase Inhibitors (statins) (20 sources) rosuvastatin Drug Allergy 07-19-19 06 Myalgia, Other: See Comments [facility] metFORMIN (6 sources) metFORMIN Drug Allergy 09-01-19 14 GI Upset [facility] NSAIDs (12 sources) celecoxib Drug Allergy 07-19-19 06 GI Upset [facility] Opioid Agonists (12 sources) Codeine Drug Allergy 02-27-20 05 Vomiting, GI Upset [facility] POISON JODI EXTRACT (6 sources) POISON JODI EXTRACT Drug Allergy 12-18-19 14 Other: See Comments [facility] Sulfonamides (antibiotic) (6 sources) Sulfonamides (Antibiotic) Drug Allergy 04-22-20 05 GI Upset [facility] Work Phone: Thiazolidinediones (glitazones) (6 sources) pioglitazone Drug Allergy 07-19-19 06 Diarrhea [facility] Work Phone: (20 sources) Amoxicillin / Clavulanate; Translations: [AMOXICILLIN-PO T CLAVULANATE] Drug Allergy 02-27-20 05 GI Upset [facility] Work Phone: (20 sources) atorvastatin; Translations: [ATORVASTATIN CALCIUM] Drug Allergy 07-19-19 06 Myalgia [facility] Work Phone: (20 sources) celecoxib; Translations: [CELECOXIB] Drug Allergy 07-19-19 06 [facility] Work Phone: (20 sources) Codeine; Translations: [CODEINE] Drug Allergy 02-27-20 05 Vomiting [facility] Work Phone: (20 sources) Diclofenac / miSOPROStol; Translations: [DICLOFENAC-MIS OPROSTOL] Drug Allergy 07-19-19 06 GI Upset [facility] Work Phone: (20 sources) ezetimibe; Translations: [EZETIMIBE] Drug Allergy 07-19-19 06 Diarrhea [facility] Work Phone: (20 sources) Fenofibrate; Translations: [FENOFIBRATE MICRONIZED] Drug Allergy 07-19-19 06 [facility] Work Phone: (20 sources) Furosemide; Translations: [FUROSEMIDE] Drug Allergy 03-30-20 05 Hives [facility] Work Phone: (20 sources) Meperidine; Translations: [MEPERIDINE HCL] Drug Allergy 02-27-20 05 GI Upset [facility] Work Phone: (20 sources) metFORMIN; Translations: [METFORMIN HCL] Drug Allergy 09-01-19 14 GI Upset [facility] (20 sources) pioglitazone; Translations: [PIOGLITAZONE HCL] Drug Allergy 07-19-19 06 Diarrhea [facility] Work Phone: (20 sources) Piroxicam; Translations: [PIROXICAM] Drug Allergy 07-19-19 06 GI Upset [facility] Work Phone: (20 sources) POISON JODI EXTRACT; Translations: [POISON JODI] Drug Allergy 12-18-19 14 Other: See Comments [facility] (20 sources) Pravastatin; Translations: [PRAVASTATIN] Drug Allergy 01-03-20 12 Other: See Comments [facility] (20 sources) Ramipril; Translations: [RAMIPRIL] Drug Allergy 07-19-19 06 Cough [facility] Work Phone: (20 sources) rosuvastatin; Translations: [ROSUVASTATIN CALCIUM] Drug Allergy 07-19-19 06 Myalgia [facility] (20 sources) Simvastatin; Translations: [SIMVASTATIN] Drug Allergy 03-21-20 19 Myalgia [facility] Work Phone: (20 sources) Sulfonamides (Antibiotic); Translations: [SULFA (SULFONAMIDE ANTIBIOTICS)] Propensity to adverse reactions 04-22-20 05 GI Upset [facility] Work Phone: (7 sources) Sulfonamides (Antibiotic) Allergy to substance 04-11-20 22 Hives [facility] (1 source) Furosemide Drug Allergy 11-19-19 [facility] Repository (1 source) Sulfonamides (Antibiotic) Drug allergy (disorder) 11-19-19 [facility] Rep[facility] Medications Current Medications Medication Drug Class(es) Dates Sig (Normalized) Sig (Original) acetaminophen 500 mg oral tablet (20 sources) Start: 09-25-2024 acetaminophen 500mg Active PO DAILY as needed September 25, 2024 12:00am Start: 11-15-2023 take 2 tablets by mo uth every eight hours as needed acetaminophen (TYLENOL) 500 mg tablet Take 2 tablets by mouth every 8 hours as needed for pain. 11/15/2023 Active amLODIPine 5 mg oral tablet (20 sources) Dihydropyridine Calcium Channel Tenisha Start: 01-10-2024 End: 07-18-2024 take 1 tablet by mouth once daily amLODIPine (NORVASC) 5 mg tablet Take 1 tablet by mouth once daily. 90 tablet 07/19/2024 Active Start: 03-06-2019 End: 09-25-2024 take 1 tablet by mouth once daily Amlodipine 10 MG tablet Discontinued 10 mg PO DAILY 60 March 06, 2019 12:00am September 25, 2024 8:34am augmented betamethasone 0.5 mg/ml topical cream (20 sources) Corticosteroid betamethasone dipropionate, augmented (DIPROLENE) 0.05 % cream APPLY TO THE HANDS TWICE A DAY FOR 14 DAYS 0 Active Comment on above: APPLY TO THE HANDS T WICE A DAY FOR 14 DAYS biotin 5 mg oral tablet (20 sources) Start: 11-20-19 take 1 tablet by mouth once daily biotin 5 mg tab Take 5 mg by mouth once daily. 11/20/2023 Active BIOTIN/KERATIN (BIOTIN PLUS KERATIN ORAL) (20 sources) BIOTIN/KERATIN (BIOTIN PLUS KERATIN ORAL) Take by mouth. 0 Active Comment on above: Take by mouth. Blood Pressure Monitor (20 sources) Start: 09-15-19 21 Blood Pressure Monitor 1 Each once daily. 1 Kit 09/14/2020 Active Start: 09-14-2020 Blood Pressure Monitor 1 Each once daily. 1 Kit 0 09/14/2020 Suspended Start: 09-14-2020 Blood Pressure Monitor 1 Each once daily. 1 Kit 0 09/14/2020 Active Comment on above: 1 Each once daily. cholecalciferol 0.05 mg oral capsule (20 sources) Vitamin D Start: 09-26-19 take 1 capsule by mouth once daily Cholecalciferol (Vitamin D3) 50 mcg (2,000 unit) capsule Active 50 ug PO daily September 25, 2024 12:00am Start: 10-13-2020 End: 12-11-2023 take 1 capsule by mouth once daily Cholecalciferol, Vitamin D3, 25 mcg (1,000 unit) cap Take 1 capsule by mouth once daily. 90 capsule 3 12/11/2023 Active Start: 03-03-2019 End: 09-25-2024 Cholecalciferol (Vitamin D3) 50,000 UNIT capsule Discontinued 1 {tbl} PO EVERY WEEK March 03, 2019 12:00am September 25, 2024 8:34am Comment on above: Take 1 capsule by [facility] once daily. dorzolamide 20 mg/ml / timolol 5 mg/ml ophthalmic solution (2 sources) Carbonic Anhydrase Inhibitor, beta-Adrenergic Tenisha Start: 11-18-2024 Dorzolamide-Timolol 22.3-6.8 mg/mL drops Active 1 NMA OPHTHALMIC TWICE A DAY November 18, 2024 12:00am loratadine 10 mg oral tablet (20 sources) Start: 10-12-2021 take 1 tablet by mouth once daily loratadine (CLARITIN) 10 mg tablet Take 1 tablet by mouth once daily. As directed for allergies 30 tablet 5 10/12/2021 Active Comment on above: Take 1 tablet by [facility] once daily. As directed for allergies Completed/Discontinued Medications Medication Drug Class(es) Dates Sig (Normalized) Sig (Original) Carbamide Peroxide (Ear Drops) 15 ML drops (7 sources) Start: 03-06-2019 End: 09-25-2024 Carbamide Peroxide (Ear Drops) 15 ML drops Discontinued 15 mL OT TWICE A DAY 150 March 06, 2019 12:00am September 25, 2024 8:34am Start: 03-06-2019 Carbamide Terrence xide (Ear Drops) 15 ML drops Active 15 ML OT TWICE A DAY 150 March 05, 2019 11:00pm Start: 03-06-2019 Carbamide Terrence xide (Ear Drops) 15 ML drops Active 15 ML OT TWICE A DAY 150 March 06, 2019 12:00am glimepiride 4 mg oral tablet (20 sources) Sulfonylurea Start: 10-24-2022 End: 11-28-2023 take 1 tablet by mouth once daily at breakfast glimepiride (AMARYL) 4 mg tablet Indications: Type 2 diabetes mellitus 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, unspecified whether longitudinal float operator insulin use (HCC) Take 1 tablet by mouth daily with breakfast. 90 tablet 3 11/20/2023 11/28/2023 Discontinued Start: 03-03-2019 End: 09-25-2024 Glimepiride 4 MG tablet Discontinued 1 {tbl} PO DAILY March 03, 2019 12:00am September 25, 2024 8:34am Start: 03-03-2019 End: 10-22-2022 take 1 tablet by mouth once daily at breakfast glimepiride (AMARYL) 4 mg tablet Indications: Type 2 diabetes mellitus 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, unspecified whether longitudinal float operator insulin use (HCC) Take 1 tablet by mouth daily with breakfast. 90 tablet 3 10/12/2021 10/22/2022 Discontinued Comment on above: Take 1 tablet by laura th daily with breakfast. hydrALAZINE hydrochloride 25 mg oral tablet (20 sources) Arteriolar Vasodilator Start: End: take 1 tablet by mouth three times daily Hydralazine 25 mg tablet Discontinued 25 mg PO THREE TIMES A DAY September 25, 2024 12:00am October 16, 2024 10:25pm Start: 01-08-2024 End: 01-10-2024 take 2.5 tablets by mouth three times daily hydrALAZINE (APRESOLINE) 10 mg tablet Take 2.5 tablets by mouth three times a day. 90 tablet 1 01/08/2024 01/10/2024 Discontinued Start: 12-11-2023 End: 01-08-2024 take 1 tablet by mouth three times daily hydrALAZINE (APRESOLINE) 25 mg tablet Take 1 tablet by mouth three times a day. 90 tablet 1 12/11/2023 01/08/2024 Discontinued Start: 11-20-2023 End: 11-20-2023 hydrALAZINE (APRESOLINE) 25 mg tablet Start: 11-15-2023 End: 12-11-2023 take 1 tablet by mouth three times daily hydrALAZINE (APRESOLINE) 25 mg tablet Take 1 tablet by mouth three times a day. 90 tablet 0 11/15/2023 12/11/2023 Discontinued indapamide 1.25 mg oral tablet (20 sources) Thiazide-like Diuretic Start: 03-03-2019 End: 09-25-2024 take 1 tablet by mouth once daily Indapamide 1.25 MG tablet Discontinued 1.25 mg PO DAILY March 03, 2019 12:00am September 25, 2024 8:34am Comment on above: Take 1 tablet by laura th once daily. ketoconazole 20 mg/ml topical cream (1 source) Azole Antifungal Start: 07-05-2019 End: 10-12-2021 ketoconazole (NIZORAL) 2 % cream Apply 1 application to affected area once daily. May increase to twice daily if needed. 30 g 0 07/05/2019 10/12/2021 Discontinued (Other) Comment on above: Apply 1 application to affected area once daily. May increase to twice daily if needed. meclizine hydrochloride 25 mg oral tablet (19 sources) Antiemetic Start: 03-21-2019 End: 10-12-2021 take 1 tablet by mouth every eight hours as needed meclizine (ANTIVERT) 25 mg tab Take 1 tablet by mouth three times daily as needed (vertigo). 0 03/21/2019 10/12/2021 Discontinued (Other) Start: 03-06-2019 End: 09-25-2024 take 1 tablet by mouth every six hours as needed for dizziness Meclizine 25 MG tablet Discontinued 25 mg PO EVERY 6 HOURS as needed for Dizziness August 06, 2022 7:43am September 25, 2024 8:35am Start: 03-03-2019 End: 03-11-2019 take 1 tablet by mouth three times daily as needed for dizziness Meclizine 12.5 MG tablet Discontinued 12.5 mg PO 3 TIMES DAILY NEEDED as needed for Dizziness 12 4 March 03, 2019 3:54pm March 06, 2019 12:00am March 11, 2019 12:08am Comment on above: Take 1 tablet by laura th three times daily as needed (vertigo). metoprolol tartrate 50 mg oral tablet (20 sources) beta-Adrenergic Tenisha Start: 03-03-20 End: 09-26-19 take 1 tablet by mouth twice daily Metoprolol Tartrate 50 MG tablet Discontinued 50 mg PO TWICE A DAY March 03, 2019 12:00am September 25, 2024 8:35am Comment on above: Take 1 tablet by [facility] twice daily. naproxen 500 mg oral tablet (7 sources) Nonsteroidal Anti-inflammatory Drug Start: 03-03-20 End: 09-26-19 take 1 tablet by mouth twice daily as needed for pain Naproxen 500 MG tablet Discontinued 500 mg PO TWICE A DAY as needed for Pain March 03, 2019 12:00am September 25, 2024 8:35am nitrofurantoin, macrocrystals 25 mg / nitrofurantoin, monohydrate 75 mg oral capsule (2 sources) Nitrofuran Antibacterial Start: 10-15-19 End: 10-20-19 take 1 capsule by mouth twice daily nitrofurantoin monohydrate and macrocrystal (MACROBID) 100 mg capsule Take 1 capsule by mouth twice daily for 5 days. 10 capsule 0 10/14/2022 10/19/2022 Start: 07-06-2022 End: 07-11-2022 take 1 capsule by mouth twice daily nitrofurantoin monohydrate and macrocrystal (MACROBID) 100 mg capsule Take 1 capsule by mouth twice daily for 5 days. 10 capsule 0 07/06/2022 07/11/2022 Active Comment on above: Take 1 capsule by [facility] twice daily for 5 days. ondansetron 4 mg disintegrating oral tablet (7 sources) Serotonin-3 Receptor Antagonist Start: 03-03-20 End: 09-26-19 take 1 tablet by mouth every eight hours as needed for nausea Ondansetron 4 MG tablet Discontinued 4 mg PO EVERY 8 HOURS NEEDED as needed for Nausea March 03, 2019 12:00am September 25, 2024 8:35am potassium chloride 20 meq extended release oral tablet (2 sources) Start: 09-27-19 End: 11-19-19 take 1 tablet by mouth once daily Potassium Chloride 20 mEq tablet extended release Discontinued 20 meq PO daily September 26, 2024 12:00am November 18, 2024 1:11pm traMADol hydrochloride 50 mg oral tablet (8 sources) Opioid Agonist Start: 05-16-20 End: 10-13-19 take 1 tablet by mouth twice daily traMADol (ULTRAM) 50 mg tablet Indications: Generalized osteoarthritis of multiple sites , Chronic low back pain with sciatica, sciatica laterality unspecified, unspecified back pain laterality Take 1 tablet by mouth twice daily for 60 days. May fill today, December 08, 2018. 60 tablet 1 05/16/2019 10/12/2021 Discontinued (Other) Start: 03-03-2019 End: 09-25-2024 take 1 tablet by mouth once daily Tramadol 50 MG tablet Discontinued 50 mg PO DAILY March 03, 2019 12:00am September 25, 2024 8:35am Comment on above: Take 1 tablet by laura twice daily for 60 days. May fill today, December 08, 2018. Problems Active Problems Problem Classification Problem Date Documented Date Episodic/Chronic Abdominal pain (7 sources) Abdominal pain; Translations: [Unspecified abdominal pain] 08-06-2022 Episodic Administrative/social admission (8 sources) Memory finding; Translations: [Person with feared health complaint in whom no diagnosis is made] 09-26-2024 Episodic Anxiety disorders (20 sources) Anxiety state; Translations: [Generalized anxiety disorder] Onset: 01-26-2013 06-19-2006 Chronic Cardiac dysrhythmias (20 sources) Sinus node dysfunction; Translations: [Sick sinus syndrome] Onset: 11-08-2023 11-08-2023 Chronic Chronic kidney disease (20 sources) Chronic kidney disease stage 3A ; Translations: [Stage 3a chronic kidney disease] Onset: 12-05-2013 02-11-2021 Chronic Conditions associated with dizziness or vertigo (14 sources) Dizziness; Translations: [Dizziness and giddiness] 08-06-2022 Episodic Conduction disorders (20 sources) Complete atrioventricular block; Translations: [Atrioventricular block, complete] Onset: 11-05-2023 11-05-2023 Chronic Coronary atherosclerosis and other heart disease (20 sources) Disorder of cardiovascular system; Translations: [Atherosclerotic heart disease of knik coronary artery without angina pectoris] Onset: 04-22-2005 09-07-2018 Chronic Deficiency and other anemia (3 sources) Anemia; Translations: [Anemia, unspecified] 02-16-2024 Episodic Deficiency and other anemia (2 sources) Anemia, unspecified; Translations: [Anemia, unspecified type] Onset: 01-10-2024 Episodic Diabetes mellitus with 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s (20 sources) Macular edema and retinopathy due to type 2 diabetes mellitus; Translations: [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, bilateral] Onset: 02-11-2016 Chronic Diabetes mellitus 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 (20 sources) Type 2 diabetes mellitus 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; Translations: [Type 2 diabetes mellitus 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s] Onset: 09-25-2024 Resolved: 01-03-2012 Chronic Diabetes mellitus 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 (2 sources) Prediabetes; Translations: [Prediabetes] 11-18-2024 Episodic Diabetes mellitus 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 (1 source) Diabetes mellitus 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; Translations: [Type 2 diabetes mellitus with stage 3a chronic kidney disease, without long-term current use of insulin (HCC)] Onset: 02-11-2021 Disorders of lipid metabolism (20 sources) Mixed hyperlipidemia; Translations: [Mixed hyperlipidemia] Onset: 04-22-2005 Chronic Esophageal disorders (1 source) Gastroesophageal reflux disease without esophagitis; Translations: [Gastro-esophageal reflux disease without esophagitis] Chronic Essential hypertension (20 sources) Essential hypertension; Translations: [Essential (primary) hypertension] Onset: 01-10-2024 Chronic Fluid and electrolyte disorders (8 sources) Hypokalemia; Translations: [Hypokalemia] Onset: 11-20-2024 08-07-2022 Episodic Genitourinary symptoms and ill-defined conditions (4 sources) Foul smelling urine; Translations: [Unspecified abnormal findings in urine] Episodic Heart valve disorders (3 sources) Rheumatic mitral stenosis; Translations: [Mitral stenosis] Onset: 09-20-2024 09-17-2024 Chronic Heart valve disorders (20 sources) Systolic murmur; Translations: [Cardiac murmur, unspecified] Onset: 03-21-2019 03-21-2019 Episodic Hypertension with 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s and secondary hypertension (20 sources) Hypertensive renal disease; Translations: [Hypertensive chronic kidney disease with stage 1 through stage 4 chronic kidney disease, or unspecified chronic kidney disease] Onset: 04-22-2005 Resolved: 11-15-2023 02-11-2021 Chronic Immunizations and screening for infectious disease (1 source) Vaccination needed; Translations: [Encounter for immunization] Episodic Intestinal obstruction without hernia (8 sources) Complete obstruction of lumen of small intestine; Translations: [Complete intestinal obstruction, unspecified as to cause] 08-06-2022 Episodic Comment on above: Patient is a 72-year -old female who is presenting for first postoperative visit status post diagnostic laparoscopy with lysis of adhesions (to the colon) on 08/08/2022. She reports minimal discomfort and overall is well-healing. She also confirms that both her diet and bowel function are returned to normal. Malaise and fatigue (20 sources) Malaise and fatigue; Translations: [Other malaise] 06-19-2006 Episodic Miscellaneous mental health disorders (20 sources) Non-organic sleep disorder; Translations: [Sleep disorder not due to a substance or known physiological condition, unspecified] Onset: 12-26-2014 07-05-2019 Chronic Mood disorders (20 sources) Reactive depression (situational); Translations: [Major depressive disorder, single episode, unspecified] Onset: 12-30-2014 08-07-2017 Chronic Nonspecific chest pain (20 sources) Chest pain; Translations: [Chest pain, unspecified] Onset: 04-22-2005 Resolved: 11-15-2023 Episodic Nutritional deficiencies (20 sources) Vitamin D deficiency; Translations: [Vitamin D deficiency, unspecified] Onset: 10-29-2012 Chronic Occlusion or stenosis of precerebral arteries (7 sources) Bilateral stenosis of carotid arteries; Translations: [Occlusion and stenosis of bilateral carotid arteries] 03-16-2019 Chronic Osteoarthritis (20 sources) Degenerative joint disease involving multiple joints; Translations: [Polyosteoarthritis, unspecified] Onset: 03-30-2005 04-13-2016 Chronic Other aftercare (1 source) Long-term current use of drug therapy; Translations: [Other longitudinal float operator (current) drug therapy] 07-19-2024 Episodic Other connective tissue disease (1 source) Cramp in foot; Translations: [Cramp and spasm] Episodic Other connective tissue disease (1 source) Cramp in lower limb; Translations: [Cramp and spasm] Episodic Other diseases of kidney and ureters (1 source) Renal impairment; Translations: [Disorder of kidney and ureter, unspecified] 12-11-2023 Episodic Other ear and sense organ disorders (7 sources) Impacted cerumen; Translations: [Impacted cerumen, unspecified ear] 08-06-2022 Episodic Other ear and sense organ disorders (1 source) Impacted cerumen in right ear; Translations: [Impacted cerumen, right ear] Episodic Other endocrine disorders (1 source) Hypoglycemia; Translations: [Hypoglycemia, unspecified] 12-11-2023 Chronic Other endocrine disorders (2 sources) Hypoglycemia, unspecified; Translations: [Hypoglycemia] Onset: 11-28-2023 Chronic Other injuries and conditions due to external causes (7 sources) Injury of head; Translations: [Unspecified injury of head, initial encounter] 04-20-2022 Episodic Other lower respiratory disease (2 sources) Nodule of lung; Translations: [Solitary pulmonary nodule] 12-11-2023 Episodic Other nervous system disorders (2 sources) Impaired cognition; Translations: [Other symptoms and signs involving cognitive functions and awareness] 11-18-2024 Episodic Other nutritional; endocrine; and metabolic disorders (6 sources) Weight decreased; Translations: [Abnormal weight loss] 09-25-2024 Episodic Other nutritional; endocrine; and metabolic disorders (1 source) Abnormal weight loss; Translations: [Abnormal weight loss] Onset: 09-25-2024 Episodic Other screening for suspected conditions (not mental disorders or infectious disease) (20 sources) Patient encounter status; Translations: [Encounter for screening mammogram for malignant neoplasm of breast] Onset: 09-25-2024 Episodic Residual codes; unclassified (1 source) History of laparoscopy; Translations: [Other specified postprocedural states] Episodic Residual codes; unclassified (2 sources) Bilateral lower limb edema; Translations: [Localized edema] 12-11-2023 Episodic Residual codes; unclassified (1 source) Medication refused; Translations: [Immunization not carried out because of patient refusal] 11-18-2024 Episodic Retinal detachments; defects; vascular occlusion; and retinopathy (20 sources) 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; Translations: [Exudative age-related macular degeneration, right eye, stage unspecified] Onset: 11-07-2022 Chronic Spondylosis; intervertebral disc disorders; other back problems (20 sources) Displacement of lumbar intervertebral disc without myelopathy; Translations: [Other intervertebral disc displacement, lumbar region] 06-19-2006 Chronic Sprains and strains (7 sources) Lower back injury; Translations: [Strain of muscle, fascia and tendon of lower back, initial encounter] 04-20-2022 Episodic Syncope (8 sources) Syncope and collapse; Translations: [Syncope and collapse] Onset: 11-28-2023 04-20-2022 Episodic Unclassified (1 source) Moderate mitral valve stenosis 09-20-2024 Unclassified (6 sources) Encounter for screening for malignant neoplasm of colon; Translations: [Z12.11 - Encounter for screening for malignant neoplasm of colon] Unclassified (1 source) bsc pm remote/ dr V/ sx chema Onset: 09-03-2024 Unclassified (2 sources) Status post cardiac pacemaker procedure Unclassified (2 sources) I05.0 - Rheumatic mitral stenosis,Z95.0 - Presence of cardiac pacemaker Past or Other Problems Problem Classification Problem Date Documented Da te Episodic/Chronic Acute and unspecified renal failure (20 sources) Acute renal failure syndrome; Translations: [Acute kidney failure, unspecified] Onset: 11-09-2023 Resolved: 11-15-2023 11-15-2023 Episodic Cardiac dysrhythmias (3 sources) Bradycardia; Translations: [Bradycardia, unspecified] Onset: 05-21-2024 05-21-2024 Episodic Hemorrhoids (20 sources) External hemorrhoids; Translations: [Residual hemorrhoidal skin tags] Onset: 09-01-2013 09-01-2013 Episodic Other connective tissue disease (20 sources) Bursitis of left shoulder; Translations: [Bursitis of left shoulder] Onset: 08-19-2010 08-19-2010 Episodic Other diseases of kidney and ureters (1 source) Disorder of kidney and ureter, unspecified; Translations: [Renal insufficiency] Onset: 12-11-2023 Episodic Other lower respiratory disease (1 source) Solitary pulmonary nodule; Translations: [Lung nodule seen on imaging study] Onset: 12-11-2023 Episodic Other skin disorders (20 sources) Cutaneous horn; Translations: [Other specified epidermal thickening] Onset: 02-11-2016 02-11-2016 Episodic Residual codes; unclassified (20 sources) Edema; Translations: [Edema, unspecified] Onset: 11-08-2005 11-08-2005 Episodic Residual codes; unclassified (20 sources) Delirium; Translations: [Disorientation, unspecified] Onset: 11-14-2023 Resolved: 11-15-2023 11-15-2023 Episodic Residual codes; unclassified (1 source) Localized edema; Translations: [Bilateral lower extremity edema] Onset: 01-10-2024 Episodic Skin and subcutaneous tissue infections (20 sources) Cellulitis of buttock; Translations: [Cellulitis of buttock] Onset: 12-07-2012 Resolved: 03-09-2020 03-09-2020 Episodic Spondylosis; intervertebral disc disorders; other back problems (20 sources) Low back pain; Translations: [Lumbago] Onset: 03-30-2005 03-30-2005 Episodic Unclassified (20 sources) Type 2 diabetes mellitus 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; Translations: [Uncontrolled type 2 diabetes mellitus 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, without long-term current use of insulin] Onset: 07-14-2016 Resolved: 10-05-2018 10-05-2018 Unclassified (1 source) Patient encounter status 09-17-2024 Urinary tract infections (20 sources) Acute cystitis; Translations: [Acute cystitis with hematuria] Onset: 11-09-2023 Resolved: 11-15-2023 Episodic Results Test Name Value Interpretation Reference Range Facility Absolute lymphocyte countOrd ered By: Gill Velez on 11-18-2024 Lymphocytes Auto (Unsp spec) [#/Vol] 1.07 10*3/uL 0.83-4.51 [facility] Absolute neutrophil countOrd ered By: Gill Velez on 11-18-2024 Neutrophils (Bld) [#/Vol] 2.4 10*3/uL 2.0-7.7 [facility] Anion gap in Serum or Plasma Ordered By: Gill Velez on 11-18-2024 Anion gap [Moles/Vol] 13 mmol/L 5-15 [facility] Automated lymphocyte count a s percentage of total leukocytesOrdered By: Gill Velez on 11-18-2024 Lymphocytes/100 WBC Auto (Unsp spec) 26.3 % 19-41 [facility] BUN/creatinine ratioOrdered By: Gill Velez on 11-18-2024 Urea nitrogen/Creatinine [Mass ratio] 22.4 mg/mg High 03-31 [facility] Basic Metabolic Profile (BMP )on 11-18-2024 BUN/CRE 22.4 RATIO High 03-31 [facility] Comment on above: Performed By: #### L 100.0100, L500.2500 #### [facility] [address] [place], [address] Calcium [Mass/Vol] 9.6 mg/dL Normal 7.6-11.0 [facility] Comment on above: Performed By: #### L 100.0100, L500.2500 #### [facility] [address] [place], [address] Chloride [Moles/Vol] 107 mmol/L Normal 98-108 [facility] Comment on above: Performed By: #### L 100.0100, L500.2500 #### [facility] [address] [place], [address] CO2 [Moles/Vol] 22.4 mmol/L Normal 21.0-32.0 [facility] Comment on above: Performed By: #### L 100.0100, L500.2500 #### [facility] [address] [place], [address] Creatinine [Mass/Vol] 1.04 mg/dL Normal 0.70-1.20 [facility] Comment on above: Performed By: #### L 100.0100, L500.2500 #### [facility] [address] [place], [address] GAP 13 Normal 5-15 [facility] Comment on above: Performed By: #### L 100.0100, L500.2500 #### [facility] [address] [place], [address] GFR/1.73 sq M.predicted among non-blacks MDRD (S/P/Bld) [Vol rate/Area] 57 mL/min/{1.73_m2} Low >60 [facility] Comment on above: Result Comment: mL/m in/1.73m2 CKD-EPI Creatinine Equation (2020) Performed By: #### L 100.0100, L500.2500 #### [facility] [address] [place], [address] Glucose [Mass/Vol] 112 mg/dL High 70-99 [facility] Comment on above: Performed By: #### L 100.0100, L500.2500 #### [facility] [address] [place], [address] Potassium [Moles/Vol] 4.2 mmol/L Normal 3.3-5.1 [facility] Comment on above: Performed By: #### L 100.0100, L500.2500 #### [facility] [address] [place], [address] Sodium [Moles/Vol] 142 mmol/L Normal 133-145 [facility] Comment on above: Performed By: #### L 100.0100, L500.2500 #### [facility] [address] [place], [address] Urea nitrogen [Mass/Vol] 23 mg/dL High 4-19 [facility] Comment on above: Performed By: #### L 100.0100, L500.2500 #### [facility] [address] [place], [address] Basophil percentageOrdered B y: Gill Monroe on 11-18-2024 Basophils/100 WBC (Bld) 0.5 % 0-1 [facility] CBC W/Diff, Automatedon 06-0 Absolute Lymph 1.07 X10 3/uL Normal 0.83-4.51 [facility] Comment on above: Performed By: #### L 100.0100, L500.2500 #### [facility] [address] [place], [address] Absolute Neut 2.4 X10 3/uL Normal 2.0-7.7 [facility] Comment on above: Performed By: #### L 100.0100, L500.2500 #### [facility] [address] [place], [address] Basophils/100 WBC (Bld) 0.5 % Normal 0-1 [facility] Comment on above: Performed By: #### L 100.0100, L500.2500 #### [facility] [address] [place], [address] Eosinophils/100 WBC (Bld) 4.4 % Normal 0-5 [facility] Comment on above: Performed By: #### L 100.0100, L500.2500 #### [facility] [address] [place], [address] Erythrocyte distribution width (RBC) [Ratio] 12.4 % Normal 11.6-14.6 [facility] Comment on above: Performed By: #### L 100.0100, L500.2500 #### [facility] [address] [place], [address] Hematocrit (Bld) [Volume fraction] 25.7 % Low 37-47 [facility] Comment on above: Performed By: #### L 100.0100, L500.2500 #### [facility] [address] [place], [address] Hemoglobin (Bld) [Mass/Vol] 7.9 g/dL Low 12.0-15.0 [facility] Comment on above: Performed By: #### L 100.0100, L500.2500 #### [facility] [address] [place], [address] IG% 0.000 Normal 0.0-0.9 [facility] Comment on above: Result Comment: IG% - Immature Granulocytes (promyelocytes, myelocytes and metamyelocytes) > 1% indicates that a LEFT SHIFT is Present. Performed By: #### L 100.0100, L500.2500 #### [facility] [address] [place], [address] Lymphocytes/100 WBC (Bld) 26.3 % Normal 19-41 [facility] Comment on above: Performed By: #### L 100.0100, L500.2500 #### [facility] [address] [place], [address] MCH (RBC) [Entitic mass] 29.3 pg Normal 27.0-32.0 [facility] Comment on above: Performed By: #### L 100.0100, L500.2500 #### [facility] [address] [place], [address] MCHC (RBC) [Mass/Vol] 30.7 g/dL Low 32-36 [facility] Comment on above: Performed By: #### L 100.0100, L500.2500 #### [facility] [address] [place], [address] MCV (RBC) [Entitic vol] 95.2 fL Normal 81-99 [facility] Comment on above: Performed By: #### L 100.0100, L500.2500 #### [facility] [address] [place], [address] Monocytes/100 WBC (Bld) 9.8 % Normal 0-10 [facility] Comment on above: Performed By: #### L 100.0100, L500.2500 #### [facility] [address] [place], [address] Neutrophils/100 WBC (Bld) 59.0 % Normal 47-70 [facility] Comment on above: Performed By: #### L 100.0100, L500.2500 #### [facility] [address] [place], [address] Nucleated RBC (Bld) [#/Vol] 0 10*3/uL Normal 0-5 [facility] Comment on above: Performed By: #### L 100.0100, L500.2500 #### [facility] [address] [place], [address] Platelet mean volume (Bld) [Entitic vol] 11.1 fL Normal 6.2-12.0 [facility] Comment on above: Performed By: #### L 100.0100, L500.2500 #### [facility] [address] [place], [address] Platelets (Bld) [#/Vol] 174 10*3/uL Normal 150-450 [facility] Comment on above: Performed By: #### L 100.0100, L500.2500 #### [facility] [address] [place], [address] RBC (Bld) [#/Vol] 2.70 10*6/uL Low 4.2-5.4 [facility] Comment on above: Performed By: #### L 100.0100, L500.2500 #### [facility] [address] [place], [address] RDW SD 43.1 fl Normal 35.1-43.9 [facility] Comment on above: Performed By: #### L 100.0100, L500.2500 #### [facility] [address] [place], [address] WBC (Bld) [#/Vol] 4.1 10*3/uL Low 4.4-11.0 [facility] Comment on above: Performed By: #### L 100.0100, L500.2500 #### [facility] [address] [place], [address] Carbon dioxide, total [Moles /volume] in Central venous bloodOrdered By: Gill Rosie on 11-18-2024 CO2 [Moles/Vol] 22.4 mmol/L 21.0-32.0 [facility] Chloride assayOrdered By: Al ycia Rosie on 11-18-2024 Chloride [Moles/Vol] 107 mmol/L 98-[address] [facility] Eosinophil percentageOrdered By: Gill Velez on 11-18-2024 Eosinophils/100 WBC (Bld) 4.4 % 0-5 [facility] Erythrocyte distribution wid th ratioOrdered By: Gill Velez on 11-18-2024 Erythrocyte distribution width (RBC) [Ratio] 12.4 % 11.6-14.6 [facility] Erythrocyte distribution wid th standard deviationOrdered By: Gill Velez on 11-18-2024 Erythrocyte distribution width (RBC) [Ratio] 43.1 fl 35.1-43.9 [facility] Glomerular filtration rate ( GFR) estimation/1.73 sq m using serum, plasma, or whole bOrdered By: Gill Velez on 11-18-2024 GFR/1.73 sq M.predicted among non-blacks MDRD (S/P/Bld) [Vol rate/Area] 57 mL/min/{1.73_m2} Low >60 [facility] Comment on above: mL/min/1.73m2 CKD-EP I Creatinine Equation (2020) Hematocrit Auto (Bld) [Volum e fraction]Ordered By: Gill Velez on 11-18-2024 Hematocrit (Bld) [Volume fraction] 25.7 % Low 37-47 [facility] Hemoglobin measurementOrdere d By: Gill Velez on 11-18-2024 Hemoglobin (Bld) [Mass/Vol] 7.9 g/dL Low 12.0-15.0 [facility] Immature granulocytes/100 WB C Auto (Bld)Ordered By: Gill Velez on 11-18-2024 Immature granulocytes/100 WBC (Bld) 0.000 % 0.0-0.9 [facility] Comment on above: IG% - Immature Granu locytes (promyelocytes, myelocytes and metamyelocytes) > 1% indicates that a LEFT SHIFT is Present. MCV (mean corpuscular volume ) determinationOrdered By: Gill Velez on 11-18-2024 MCV (RBC) [Entitic vol] 95.2 fL 81-99 [facility] Mean corpuscular hemoglobin (MCH) determinationOrdered By: Gill Velez on 11-18-2024 MCH (RBC) [Entitic mass] 29.3 pg 27.0-32.0 [facility] Mean corpuscular hemoglobin concentration (MCHC) determinationOrdered By: Gill Velez on 11-18-2024 MCHC (RBC) [Mass/Vol] 30.7 g/dL Low 32-36 [facility] Mean platelet volume determi nationOrdered By: Gill Velez on 11-18-2024 Platelet mean volume (Bld) [Entitic vol] 11.1 fL 6.2-12.0 [facility] Monocyte percentageOrdered B y: Gill Velez on 11-18-2024 Monocytes/100 WBC (Bld) 9.8 % 0-10 [facility] Neutrophil percentageOrdered By: Gill Velez on 11-18-2024 Neutrophils/100 WBC (Bld) 59.0 % 47-70 [facility] Nucleated red blood cell per centageOrdered By: Gill Velez on 11-18-2024 Nucleated RBC/100 WBC (Bld) [Ratio] 0 % 0-5 [facility] Platelet countOrdered By: Bobby Velez on 11-18-2024 Platelets (Bld) [#/Vol] 174 10*3/uL 150-450 [facility] Potassium measurement (mass/ volume)Ordered By: Gill Velez on 11-18-2024 Potassium (Unsp spec) [Mass/Vol] 4.2 mmol/L 3.3-5.1 [facility] RBC Auto (Bld) [#/Vol]Ordere d By: Gill Velez on 11-18-2024 RBC (Bld) [#/Vol] 2.70 10*6/uL Low 4.2-5.4 [facility] Serum creatinine measurement (mass/volume)Ordered By: Gill Velez on 11-18-2024 Creatinine [Mass/Vol] 1.04 mg/dL 0.70-1.20 [facility] Serum glucose measurement (m ass/volume)Ordered By: Gill Velez on 11-18-2024 Glucose [Mass/Vol] 112 mg/dL High 70-99 [facility] Serum or plasma calcium mina urement (mass/volume)Ordered By: Gill Velez on 11-18-2024 Calcium [Mass/Vol] 9.6 mg/dL 7.6-11.0 [facility] Serum or plasma urea nitroge n measurement (mass/volume)Ordered By: Gill Velez on 11-18-2024 Urea nitrogen [Mass/Vol] 23 mg/dL High 4-19 [facility] Sodium levelOrdered By: Laverne Velez on 11-18-2024 Sodium [Moles/Vol] 142 mmol/L 133-145 [facility] White blood cell (WBC) count Ordered By: Gill Velez on 11-18-2024 WBC (Bld) [#/Vol] 4.1 10*3/uL Low 4.4-11.0 [facility] Internal Medicine Office Vis iton 11-14-2024 Internal Medicine Office Visit [facility] [place] [address] [place] [address] OFFICE VISIT Date of Service: 11/18/24 MR#: [id number] Acct: [id number] Name: ANGELICA TORIBIO Rep #: [id number] : 1950 Provider: Dr. 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 CARE - PPW SENT Collections Analyst Required: No Accompanied by: Significant Other Is patient in pain?: No Allergies furosemide (From Lasix) Allergy (Verified 11/18/24 13:06) Hives Sulfa (Sulfonamide Antibiotics) Allergy (Verified 11/18/24 13:06) Hives Medications ???Medication ???Instructions ???Recorded ???Confirmed ???Type acetaminophen 500mg PO DAILY PRN 09/25/24 11/18/24 His tory cholecalciferol (vitamin D3) 50 50 mcg PO QDAY 09/25/24 11/18/24 H istory mcg (2,000 unit) capsule hydralazine 25 mg tablet 25 mg PO TID #270 tabs 10/16/24 Rx dorzolamide 22.3 mg-timolol 6.8 1 drp ophthalmic (eye) BID 5 11/18/24 History mg/mL eye drops Have you fallen in the past year?: No Nurse's Note: Pt needs referral to validation technician. Pt states she got pacemaker placed at [facility]. Pt states she has not had a mammogram or colonoscopy in awhile, pt states she will not get one done until she says ok from validation technician. [facility] Medical History (Updated 11/18/24 @ 13:[address] Gill Velez MD) Vision problems Vascular disease H/O irritable bowel syndrome Hyperlipidemia Frequent headaches Glaucoma Cataracts, bilateral Partial small bowel obstruction Carotid stenosis, bilateral GERD (gastroesophageal reflux disease) Cardiac murmur Osteoarthritis HTN (hypertension) Vertigo Surgical History (Updated 11/18/24 @ 13:[address] Gill Velez MD) History of pacemaker H/O: hysterectomy History of laparoscopy History of dilation and curettage Family History (Updated 11/18/24 @ 13:[address] Gill Velez MD) Mother Heart disease Hypertension Father Heart disease Hypertension Diabetes Brother Diabetes Cancer esophageal Social History (Updated 11/18/24 @ 13:[address] 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 1. Little interest or pleasure in doing things: not at all 2. Feeling down, depressed, or hopeless: several days 3. Trouble falling or staying asleep, or sleeping too much: not at all 4. Feeling tired or having little energy: several days 5. Poor appetite or overeating: not at all 6. Feeling bad about yourself - or that you are a failure or have let yourself and your family down: not at all 7. Trouble concentrating on things, such as reading the newspaper or watching television: several days 8. Moving or speaking so slowly that other people could have noticed? - Or the opposite - being so fidgety or restless that you have been moving around a lot more than usual: not at all 9. Thoughts that you would be better off or of hurting yourself in some way: not at all Total score: 3 If you checked off any problems, how difficult have these problems made it for you to do your work, take care of things at home, or get along with other people?: not difficult at all Source: Developed by Drs. Thierno Khalil, Delvin Benjamin and colleagues, with an educational aditi from [employer]. CHASITY-7 BMS CHASITY-7 Feeling nervous, anxious, or on edge: 1 = Several days Not being able to stop or control worryin = Not at all Worrying too much about different things: 0 = Not at all Trouble relaxin = Not at all Being so restless that it is hard to sit still: 0 = Not at all Becoming easily annoyed or irritable: 1 = Several days Feeling afraid as if something awful might happen: 1 = Several days Total CHASITY-7 score (0-4 normal; 5-9 mild; 10-14 moderate; 15-21 severe): 3 Source: Developed by Drs. Thierno Khalil, Delvin Benjamin and colleagues, with an educational gr (more content not included)... Normal [facility] 11-08-2024 [facility] Telephone (AGCARDPOB ) ----- ANGELICA TORIBIO ([id number]) 1950 F IPA Date Time Provider Department 11/08/24 XIMENA MACIEL During your visit today, we recorded the following information about you: Winston Gutierrez LPN 11/08/2024 3:21 PM Signed Opened in error. Winston Gutierrez LPN Allergies As of Date: 11/08/2024 Noted Allergy Reaction POISON JODI 12/17/2013 14 - Other: See Comments Comments: Poison Jodi rash ZOCOR (SIMVASTATIN) 03/21/2019 17 - Myalgia Comments: Muscle aches ACTOS (PIOGLITAZONE HCL) 07/19/2005 6 - Diarrhea ALTACE (RAMIPRIL) 07/19/2005 3 - Cough ARTHROTEC 50 (DICLOFENAC-MISOPROS*12/2005 8 - GI Upset AUGMENTIN (AMOXICILLIN-POT CLAVUL*02/26/2005 8 - GI Upset CELEBREX (CELECOXIB) 07/19/2005 CODEINE 02/26/2005 11 - Vomiting CRESTOR (ROSUVASTATIN CALCIUM) 07/19/2005 17 - Myalgia Comments: Muscle aches, tried two different times at low doses and had muscle cramping in legs DEMEROL (MEPERIDINE HCL) 02/26/2005 8 - GI Upset FELDENE (PIROXICAM) 07/19/2005 8 - GI Upset GLUCOPHAGE (METFORMIN HCL) 08/31/2013 8 - GI Upset Comments: diarrhea LASIX (FUROSEMIDE) 03/30/2005 Comments: dizzy LIPITOR (ATORVASTATIN CALCIUM) 07/19/2005 17 - Myalgia Comments: Muscle aches PRAVASTATIN 01/03/2012 14 - Other: See Comments Comments: muscle aches calf SULFA (SULFONAMIDE ANTIBIOTICS) 04/22/2005 8 - GI Upset TRICOR (FENOFIBRATE MICRONIZED) 07/19/2005 ZETIA (EZETIMIBE) 07/19/2005 6 - Diarrhea Date Reviewed: 09/20/2024 Reviewed by: Ximena Maciel APRN.LACQUER [employer] - Fully Assessed Reason for Visit: Patient Question [1477] Prescriptions as of 11/08/2024 - hydrALAZINE (APRESOLINE) 25 mg tablet Take 1 tablet by mouth three times a day. - amLODIPine (NORVASC) 5 mg tablet Take 1 tablet by mouth once daily. - hydrALAZINE (APRESOLINE) 25 mg tablet Take 1 tablet by mouth three times a day. - Lancets Test blood sugar(s) 2 times daily. Dx: Other DM Code E11.22 Insulin: No - Cholecalciferol, Vitamin D3, 25 mcg (1,000 unit) cap Take 1 capsule by mouth once daily. - blood sugar diagnostic (BLOOD GLUCOSE TEST) test strip Test blood sugar(s) once daily as directed. Dx: E11.22. Insulin: no - biotin 5 mg tab Take 5 mg by mouth once daily. - acetaminophen (TYLENOL) 500 mg tablet Take 2 tablets by mouth every 8 hours as needed for pain. - Blood Pressure Monitor 1 Each once daily. Meds Comments as of 05/02/2018: Tylenol Problem List As Of Date 11/08/2024 Noted Resolved LUMBAGO [M54.50] 03/30/2005 SCIATICA [M54.30] 03/30/2005 Generalized osteoarthritis of multiple sites [M*03/30/2005 Cardiovascular disease [I25.10] 04/22/2005 Chest pain, unspecified [R07.9] 04/22/2005 08/19/2013 MIXED HYPERLIPIDEMIA [E78.2] 04/22/2005 Hypertensive kidney disease with stage 3a chron*04/22/2005 EDEMA [R60.9] 11/08/2005 Type I (juvenile type) diabetes mellitus withou* 01/03/2012 MALAISE AND FATIGUE NEC [R53.81, R53.83] Anxiety state [F41.1] LUMBAR DISC DISPLACEMENT [M51.26] ARTHROPATHY NOS-L/LEG [M17.10] 01/19/2007 Bursitis of shoulder, left [M75.52] 08/19/2010 Vitamin D deficiency [E55.9] 10/29/2012 Cellulitis of buttock [L03.317] 12/07/2012 03/09/2020 Anxiety [F41.9] 01/26/2013 External hemorrhoids [K64.4] 09/01/2013 Stage 3a chronic kidney disease (HCC) [N18.31] 12/05/2013 PTSD (post-traumatic stress disorder) [F43.10] 12/26/2014 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] 12/26/2014 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] 12/26/2014 Reactive 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] 12/30/2014 Type 2 diabetes mellitus with stage 3a chronic *02/11/2016 Cutaneous horn [L85.8] 02/11/2016 Uncontrolled type 2 diabetes mellitus without c*07/14/2016 10/05/2018 Heart murmur, systolic [R01.1] 03/21/2019 Severe nonproliferative diabetic retinopathy of*10/12/2021 Exudative age-related macular degeneration of r*11/07/2022 Complete heart block (HCC) [I44.2] 11/05/2023 Sinoatrial node dysfunction (HCC) [I49.5] 11/08/2023 Presence of permanent cardiac pacemaker [Z95.0] 11/09/2023 Hypertensive urgency [I16.0] 11/09/2023 11/15/2023 UTI due to Klebsiella species [N39.0, B96.89] 11/09/2023 11/15/2023 JEREMIE (acute kidney injury) (HCC) [N17.9] 11/09/2023 11/15/2023 Other chest pain [R07.89] 11/09/2023 11/15/2023 Malnutrition of mild degree (HCC) [E44.1] 11/13/2023 Delirium [R41.0] 11/14/2023 11/15/2023 Encounter Status:Closed by WINSTON GUTIERREZ on 11/08/24 Normal [facility] Anion gap in Serum or Plasma Ordered By: Ryan Kamara on 09-25-2024 Anion gap [Moles/Vol] 11 mmol/L 10-24 [facility] BUN/creatinine ratioOrdered By: Ryan Kamara on 09-25-2024 Urea nitrogen/Creatinine [Mass ratio] 17.3 mg/mg - [facility] Bilirubin, totalOrdered By: Ryan Kamara on 09-25-2024 Bilirubin [Mass/Vol] 0.43 mg/dL 0.00-1.30 [facility] CBC-Complete Blood Cnt No Di ffon 09-25-2024 Erythrocyte distribution width (RBC) [Ratio] 12.9 % Normal 11.6-14.6 [facility] Comment on above: Performed By: #### L 100.0500, L503.0106, L506.1001, L500.4050, L501.9520 #### [facility] [address] [place], [address] Hematocrit (Bld) [Volume fraction] 29.3 % Low 37-47 [facility] Comment on above: Performed By: #### L 100.0500, L503.0106, L506.1001, L500.4050, L501.9520 #### [facility] [address] [place], [address] Hemoglobin (Bld) [Mass/Vol] 9.7 g/dL Low 12.0-15.0 [facility] Comment on above: Performed By: #### L 100.0500, L503.0106, L506.1001, L500.4050, L501.9520 #### [facility] [address] [place], [address] MCH (RBC) [Entitic mass] 31.2 pg Normal 27.0-32.0 [facility] Comment on above: Performed By: #### L 100.0500, L503.0106, L506.1001, L500.4050, L501.9520 #### [facility] [address] [place], [address] MCHC (RBC) [Mass/Vol] 33.1 g/dL Normal 32-36 [facility] Comment on above: Performed By: #### L 100.0500, L503.0106, L506.1001, L500.4050, L501.9520 #### [facility] [address] [place], [address] MCV (RBC) [Entitic vol] 94.2 fL Normal 81-99 [facility] Comment on above: Performed By: #### L 100.0500, L503.0106, L506.1001, L500.4050, L501.9520 #### [facility] [address] [place], [address] Platelet mean volume (Bld) [Entitic vol] 11.1 fL Normal 6.2-12.0 [facility] Comment on above: Performed By: #### L 100.0500, L503.0106, L506.1001, L500.4050, L501.9520 #### [facility] [address] [place], [address] Platelets (Bld) [#/Vol] 158 10*3/uL Normal 150-450 [facility] Comment on above: Performed By: #### L 100.0500, L503.0106, L506.1001, L500.4050, L501.9520 #### [facility] [address] [place], [address] RBC (Bld) [#/Vol] 3.11 10*6/uL Low 4.2-5.4 [facility] Comment on above: Performed By: #### L 100.0500, L503.0106, L506.1001, L500.4050, L501.9520 #### [facility] [address] [place], [address] RDW SD 44.2 fl High 35.1-43.9 [facility] Comment on above: Performed By: #### L 100.0500, L503.0106, L506.1001, L500.4050, L501.9520 #### [facility] [address] [place], [address] WBC (Bld) [#/Vol] 5.0 10*3/uL Normal 4.4-11.0 [facility] Comment on above: Performed By: #### L 100.0500, L503.0106, L506.1001, L500.4050, L501.9520 #### [facility] [address] [place], [address] Carbon dioxide, total [Moles /volume] in Central venous bloodOrdered By: Ryan Kamara on 09-25-2024 CO2 [Moles/Vol] 22.9 mmol/L 21.0-32.0 [facility] Chloride assayOrdered By: Eitan ttmily Kamara on 09-25-2024 Chloride [Moles/Vol] 110 mmol/L High 98-108 [facility] Comprehensive Metabolic Prof ilon 09-25-2024 Albumin [Mass/Vol] 4.1 g/dL Normal 3.4-4.8 [facility] Comment on above: Performed By: #### L 100.0500, L503.0106, L506.1001, L500.4050, L501.9520 #### [facility] [address] [place], [address] Albumin/Globulin [Mass ratio] 1.7 {ratio} Normal 0.9-2.4 [facility] Comment on above: Performed By: #### L 100.0500, L503.0106, L506.1001, L500.4050, L501.9520 #### [facility] [address] [place], [address] ALK PHOS 74 U/L Normal 35-104 [facility] Comment on above: Performed By: #### L 100.0500, L503.0106, L506.1001, L500.4050, L501.9520 #### [facility] [address] [place], [address] ALT [Catalytic activity/Vol] 12 U/L Normal <=34 [facility] Comment on above: Performed By: #### L 100.0500, L503.0106, L506.1001, L500.4050, L501.9520 #### [facility] [address] [place], [address] AST [Catalytic activity/Vol] 17 U/L Normal <=31 [facility] Comment on above: Performed By: #### L 100.0500, L503.0106, L506.1001, L500.4050, L501.9520 #### [facility] [address] [place], [address] Bilirubin [Mass/Vol] 0.43 mg/dL Normal 0.00-1.30 [facility] Comment on above: Performed By: #### L 100.0500, L503.0106, L506.1001, L500.4050, L501.9520 #### [facility] [address] [place], [address] BUN/CRE 17.3 RATIO Normal 10-20 [facility] Comment on above: Performed By: #### L 100.0500, L503.0106, L506.1001, L500.4050, L501.9520 #### [facility] [address] [place], [address] Calcium [Mass/Vol] 9.3 mg/dL Normal 7.6-11.0 [facility] Comment on above: Performed By: #### L 100.0500, L503.0106, L506.1001, L500.4050, L501.9520 #### [facility] [address] [place], [address] Chloride [Moles/Vol] 110 mmol/L High 98-108 [facility] Comment on above: Performed By: #### L 100.0500, L503.0106, L506.1001, L500.4050, L501.9520 #### [facility] [address] [place], [address] CO2 [Moles/Vol] 22.9 mmol/L Normal 21.0-32.0 [facility] Comment on above: Performed By: #### L 100.0500, L503.0106, L506.1001, L500.4050, L501.9520 #### [facility] [address] [place], [address] Creatinine [Mass/Vol] 0.91 mg/dL Normal 0.70-1.20 [facility] Comment on above: Performed By: #### L 100.0500, L503.0106, L506.1001, L500.4050, L501.9520 #### [facility] [address] [place], [address] GAP 11 Normal 5-15 [facility] Comment on above: Performed By: #### L 100.0500, L503.0106, L506.1001, L500.4050, L501.9520 #### [facility] [address] [place], [address] GFR/1.73 sq M.predicted among non-blacks MDRD (S/P/Bld) [Vol rate/Area] 67 mL/min/{1.73_m2} Normal >60 [facility] Comment on above: Result Comment: mL/m in/1.73m2 CKD-EPI Creatinine Equation (2020) Performed By: #### L 100.0500, L503.0106, L506.1001, L500.4050, L501.9520 #### [facility] [address] [place], [address] Globulin (S) [Mass/Vol] 2.5 g/dL Normal 2.2-4.2 [facility] Comment on above: Performed By: #### L 100.0500, L503.0106, L506.1001, L500.4050, L501.9520 #### [facility] [address] [place], [address] Glucose [Mass/Vol] 211 mg/dL High 70-99 [facility] Comment on above: Performed By: #### L 100.0500, L503.0106, L506.1001, L500.4050, L501.9520 #### [facility] [address] [place], [address] Potassium [Moles/Vol] 2.8 mmol/L Low 3.3-5.1 [facility] Comment on above: Performed By: #### L 100.0500, L503.0106, L506.1001, L500.4050, L501.9520 #### [facility] [address] [place], [address] Sodium [Moles/Vol] 145 mmol/L Normal 133-145 [facility] Comment on above: Performed By: #### L 100.0500, L503.0106, L506.1001, L500.4050, L501.9520 #### [facility] [address] [place], [address] T PROT 6.6 g/dL Normal 5.9-8.4 [facility] Comment on above: Performed By: #### L 100.0500, L503.0106, L506.1001, L500.4050, L501.9520 #### [facility] [address] [place], [address] Urea nitrogen [Mass/Vol] 16 mg/dL Normal 4-19 [facility] Comment on above: Performed By: #### L 100.0500, L503.0106, L506.1001, L500.4050, L501.9520 #### [facility] [address] [place], [address] Erythrocyte distribution wid th (RBC) [Ratio]Ordered By: Ryan Kamara on 09-25-2024 Erythrocyte distribution width (RBC) [Entitic vol] 44.2 fL High 35.1-43.9 [facility] Erythrocyte distribution wid th ratioOrdered By: Ryan Kamara on 09-25-2024 Erythrocyte distribution width (RBC) [Ratio] 12.9 % 11.6-14.6 [facility] Erythrocyte distribution wid th standard deviationOrdered By: Ryan Kamara on 09-25-2024 Erythrocyte distribution width (RBC) [Ratio] 44.2 fl High 35.1-43.9 [facility] GFR/1.73 sq M.predicted jay g non-blacks MDRD (S/P/Bld) [Vol rate/Area]Ordered By: Ryan Kamara on 09-25-2024 Estimated GFR (MDRD) Non-Af Amer 67 >60 [facility] Comment on above: mL/min/1.73m2 CKD-EP I Creatinine Equation (2020) Glomerular filtration rate ( GFR) estimation/1.73 sq m using serum, plasma, or whole bOrdered By: Ryan Kamara on 09-25-2024 GFR/1.73 sq M.predicted among non-blacks MDRD (S/P/Bld) [Vol rate/Area] 67 mL/min/{1.73_m2} >60 [facility] Comment on above: mL/min/1.73m2 CKD-EP I Creatinine Equation (2020) Hematocrit Auto (Bld) [Volum e fraction]Ordered By: Ryan Kamara on 09-25-2024 Hematocrit (Bld) [Volume fraction] 29.3 % Low 37-47 [facility] Hemoglobin measurementOrdere d By: Ryan Kamara on 09-25-2024 Hemoglobin (Bld) [Mass/Vol] 9.7 g/dL Low 12.0-15.0 [facility] Internal Medicine Office Vis itosamantha 09-25-2024 Internal Medicine Office Visit [facility] [address] [place] [address] [address] [place] [address] OFFICE VISIT Date of Service: 09/25/24 MR#: [id number] Acct: [id number] Name: ANGELICA TORIBIO Rep #: [id number] : 1950 Provider: ARUN Fall Age/Sex: 74/F Location: [facility] Status: Signed Intake Vital Signs 11/22/23 22:44 09/24/24 10:42 09/25/24 08:46 Height 5 ft 5 ft 5 ft Weight: 117 lb BMI 22.8 BP 132/78 H Blood Pressure Location Lt brachial Position Sitting Respiration 18 Pulse 81 Pulse Source Monitor Temp 97.8 F Temp Source Temporal Pulse Oximetry (%) 98 Oxygen Delivery Method room air 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 WEIGHTLOSS-EST NOVEMBER 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 WEIGHT LOSS-EST NOVEMBER Collections Analyst Required: No Is patient in pain?: No Allergies furosemide (From Lasix) Allergy (Verified 08/18/22 14:32) Hives Sulfa (Sulfonamide Antibiotics) Allergy (Verified 08/18/22 14:32) Hives Medications ???Medication ???Instructions ???Recorded ???Confirmed ???Type acetaminophen 500mg PO DAILY PRN 09/25/24 History cholecalciferol (vitamin D3) 50 50 mcg PO QDAY 09/25/24 09/25/24 H istory mcg (2,000 unit) capsule hydralazine 25 mg tablet 25 mg PO TID 09/25/24 09/25/24 His tory Have you fallen in the past year?: No Nurse's Note: pt reports that she is having blood drained off of her right eye at [facility] in [place] tomorrow pt reports that she only takes hydralazine, Vitamin D daily dose (unsure of strength), and tylenol for pain pt has concerns about unintentional weight loss [facility] Medical History (Updated 09/26/24 @ 11:34 by Ryan DIAS, PA) History of pacemaker Vision problems Vascular disease H/O irritable bowel syndrome Hyperlipidemia Frequent headaches Gastrointestinal problem Glaucoma Cataracts, bilateral Partial small bowel obstruction Carotid stenosis, bilateral GERD (gastroesophageal reflux disease) Cardiac murmur Osteoarthritis HTN (hypertension) Diabetes Vertigo Surgical History H/O: hysterectomy History of laparoscopy History of dilation and curettage History of partial hysterectomy Family History Mother Heart disease Hypertension Father Heart disease Hypertension Diabetes Brother Diabetes Social History adopted: No household members: significant other and none current occupational status: retired Smoking Status: Never smoker alcohol intake: never substance use type: does not use what type of physical activity do you participate in: none and walking seatbelt use: always do you feel safe at home: Yes HPI HPI 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 She was previously seeing PCP in [place] at [facility] but is not wanting to go back to see her as the medication she was taking they told her caused her all of her issues She had a pacemaker placed a year ago following a bout of some shortness of breath and further evaluation led to finding an AV block. She was recently seen at [facility] for evaluation of her pacemaker prior to having eye surgery. She states that she was told the eye doctor needed clearance before she could have that done. She states that she was told that her pacemaker was working fine and there was no concerns with her proceeding with eye surgery. She states that they noted a heart murmur and wanted her to follow-up with a validation technician since she does not see anyone outpatient. They placed a referral for the [place] [facility] but she states that she is going to go back to the cardiology group at [facility]. She was having some BP issues and they changed her medications due to the 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 from the original medication (she does not remember what the name of the medication was) She states that she has had some weight loss over the past 4-5 months. She states that she doesn't eat much as she just doesn't feel hungry very often. She states that she is more of a warp picker. She does not eat regular meals. Patient denies having any type of nausea or vomiting and has no episodes of diarrhea or changes in her bowels. She denies any abdominal pains or any type of reflux symptoms. She states that they stopped her diabetes medication last october stating that they told her she did not need this anymore. She has never had a colonoscopy She states that it has been a long time since she has had a mammogram Patient was never a smoker She does not consume ETOH No caffeine She does not see a dentist She sees an eye doctor and again is scheduled for surgery o (more content not included)... Normal [facility] - Chemistry and C hemistry - challengeOrdered By: Ryan Kamara on 09-25-2024 AST [Catalytic activity/Vol] 17 U/L <32 [facility] - Hematology and Cell countsOrdered By: Ryan Kamara on 09-25-2024 HbA1c (Bld) [Mass fraction] 6.3 % 4.2-6.3 [facility] MCV (mean corpuscular volume ) determinationOrdered By: Ryan Kamara on 09-25-2024 MCV (RBC) [Entitic vol] 94.2 fL 81-99 [facility] Mean corpuscular hemoglobin (MCH) determinationOrdered By: Ryan Kamara on 09-25-2024 MCH (RBC) [Entitic mass] 31.2 pg 27.0-32.0 [facility] Mean corpuscular hemoglobin concentration (MCHC) determinationOrdered By: Ryan Kamara on 09-25-2024 MCHC (RBC) [Mass/Vol] 33.1 g/dL 32-36 [facility] Mean platelet volume determi nationOrdered By: Ryan Kamara on 09-25-2024 Platelet mean volume (Bld) [Entitic vol] 11.1 fL 6.2-12.0 [facility] Platelet countOrdered By: Eitan ttmily Kamara on 09-25-2024 Platelets (Bld) [#/Vol] 158 10*3/uL 150-450 [facility] Potassium (Unsp spec) [Mass/ Vol]Ordered By: Ryan Kamara on 09-25-2024 Potassium [Moles/Vol] 2.8 mmol/L Low 3.3-5.1 [facility] Potassium measurement (mass/ volume)Ordered By: Ryan Kamara on 09-25-2024 Potassium (Unsp spec) [Mass/Vol] 2.8 mmol/L Low 3.3-5.1 [facility] RBC Auto (Bld) [#/Vol]Ordere d By: Ryan Kamara on 09-25-2024 RBC (Bld) [#/Vol] 3.11 10*6/uL Low 4.2-5.4 [facility] Serum creatinine measurement (mass/volume)Ordered By: Ryan Kamara on 09-25-2024 Creatinine [Mass/Vol] 0.91 mg/dL 0.70-1.20 [facility] Serum globulin measurementOr dered By: Ryan Kamara on 09-25-2024 Globulin (S) [Mass/Vol] 2.5 g/dL 2.2-4.2 [facility] Serum glucose measurement (m ass/volume)Ordered By: Ryan Kamara on 09-25-2024 Glucose [Mass/Vol] 211 mg/dL High 70-99 [facility] Serum or plasma alanine berman otransferase (ALT) measurementOrdered By: Ryan Kamara on 09-25-2024 ALT [Catalytic activity/Vol] 12 U/L <35 [facility] Serum or plasma albumin mina urement (mass/volume)Ordered By: Ryan Kamara on 09-25-2024 Albumin [Mass/Vol] 4.1 g/dL 3.4-4.8 [facility] Serum or plasma albumin/glob ulin mass ratioOrdered By: Ryan Kamara on 09-25-2024 Albumin/Globulin [Mass ratio] 1.7 {ratio} 0.9-2.4 [facility] Serum or plasma alkaline jasmyn sphatase measurementOrdered By: Ryan Kamara on 09-25-2024 ALP [Catalytic activity/Vol] 74 U/L 35-104 [facility] Serum or plasma calcium mina urement (mass/volume)Ordered By: Ryan Kamara on 09-25-2024 Calcium [Mass/Vol] 9.3 mg/dL 7.6-11.0 [facility] Serum or plasma urea nitroge n measurement (mass/volume)Ordered By: Ryna Kamara on 09-25-2024 Urea nitrogen [Mass/Vol] 16 mg/dL 4-19 [facility] Sodium levelOrdered By: Alonso Kamara on 09-25-2024 Sodium [Moles/Vol] 145 mmol/L 133-145 [facility] TSH DL <= 0.005 mIU/L QnOrde red By: Ryan Kamara on 09-25-2024 Thyroid Stimulating Hormone (TSH) 2.680 uIU/mL 0.300-4.200 [facility] TSH Qn 2.680 uIU/mL 0.300-4.200 [facility] Thyroid Stim Hormone (TSH)on 09-25-2024 TSH 2.680 uIU/mL Normal 0.300-4.200 [facility] Comment on above: Performed By: #### L 100.0500, L503.0106, L506.1001, L500.4050, L501.9520 #### [facility] [address] [place], [address] Total proteinOrdered By: Francois Kamara on 09-25-2024 Protein [Mass/Vol] 6.6 g/dL 5.9-8.4 [facility] Vitamin B12on 09-25-2024 Cobalamin (Vitamin B12) [Mass/Vol] 279 pg/mL Normal 180-914 [facility] Comment on above: Performed By: #### L 100.0500, L503.0106, L506.1001, L500.4050, L501.9520 #### [facility] [address] [place], [address] Vitamin B12 ser/plasOrdered By: Ryan Kamara on 09-25-2024 Cobalamin (Vitamin B12) [Mass/Vol] 279 pg/mL 180-914 [facility] Vitamin D, 25-hydroxyOrdered By: Ryan Kamara on 09-25-2024 Vitamin D 25-Hydroxy 33.2 ng/mL 30-100 [facility] Comment on above: Vitamin D StatusDefi ciency: <20 ng/mL (50nmol/L)Insufficiency: 20-30 ng/mL (50-75 nmol/L)Sufficiency: 30-100 ng/mL (75-250 nmol/L)Toxicity: >100 ng/mL (>250 nmol/L) Vitamin D,25 Hydroxyon 09-25 Vitamin D 25-OH 33.2 ng/mL Normal 30-100 [facility] Comment on above: Result Comment: Liliam min D Status Deficiency: <20 ng/mL (50nmol/L) Insufficiency: 20-30 ng/mL (50-75 nmol/L) Sufficiency: 30-100 ng/mL (75-250 nmol/L) Toxicity: >100 ng/mL (>250 nmol/L) Performed By: #### L 100.0500, L503.0106, L506.1001, L500.4050, L501.9520 #### [facility] [address] [place], [address] White blood cell (WBC) count Ordered By: Ryan Kamara on 09-25-2024 WBC (Bld) [#/Vol] 5.0 10*3/uL 4.4-11.0 [facility] CNOVon 09-20-2024 CNOV Office Visit (AGCARD POB) ----- REAL TORIBIOOLESYA Causey ([id number]) 1950 F Date Time Provider Department 09/20/24 7:30 AM XIMENA MACIEL During your visit today, we recorded the following information about you: Pulse Blood pressure Weight 80/minute 130/72 49.9 kg Ximena Maciel APRN.[employer] 09/20/2024 8:06 AM Signed [facility] Cardiology Electrophysiology PRIMARY CARE PHYSICIAN: Carmen Johnson [address] [place] [address] CHIEF COMPLAINT: Cardiovascular medicine follow-up for pacemaker. HISTORY OF PRESENT ILLNESS: Ms. Toribio is a 74 year old female who presents today for follow-up regarding pacemaker. The patient has a past medical history significant for diabetes, hypertension, hyperlipidemia with statin intolerance, depression, and obesity. She presented to an outside ED on 11/05/23 with pelvic pain that began around 5:00 AM, including right lower quadrant pain, dysuria, and pelvic pain after a bowel movement. In the ED, she was found to have a UTI and was started on ceftriaxone. Her EKG showed bradycardia and second-degree AV block, 2:1, and she also had JEREMIE on CKD. She reported experiencing shortness of breath for the past month with orthopnea and intermittent chest pain. She also mentioned a near syncopal episode a few weeks prior to hospitalization, which she attributed to dehydration. She was admitted to the CVICU and evaluated by Dr. Orozco, who recommended permanent pacemaker implantation. She underwent implantation of a [employer] dual chamber pacemaker with Dr. Ramachandran on 11/07/23. Hospitalization was complicated due to concern for cognitive impairment and inability to care for herself. Psychiatry was consulted and recommended outpatient follow-up for neuropsych testing and evaluation possible of dementia. She was discharged home on 11/15/23 with home health care. A 6-week post-pacemaker check completed on 01/03/2024 showed stable function of the pacemaker. Diagnostic Results: - Echocardiogram (admission 11/07/2023): - LVEF: 71% - Normal left ventricular size, no wall motion abnormalities - Severe mitral annular calcification, moderate mitral stenosis - Trace mitral valve regurgitation - Mild tricuspid valve regurgitation - Trace aortic valve regurgitation - Mild aortic valve calcification Interval History: The patient is a 74-year-old female with a history of T2DM, hypertension, hyperlipidemia, statin intolerance and depression, presenting for a one-year follow-up after pacemaker implantation. The patient was admitted to the CVICU on 11/05/2023 for evaluation of bradycardia and second-degree AV block, 2:1, discovered during an ED visit for pelvic pain. She reported dyspnea for one month with orthopnea and intermittent chest pain. She also experienced a near-syncopal episode a few weeks prior, which she attributed to dehydration. She denied any chest pain, nausea, vomiting, or abdominal pain. An echocardiogram during that admission indicated an LVEF of 71%, normal left ventricular size, no wall motion abnormalities, severe mitral annular calcification, moderate mitral stenosis, trace mitral valve regurgitation, mild tricuspid valve regurgitation, trace aortic valve regurgitation, and mild aortic valve calcification. She underwent implantation of a [employer] dual-chamber pacemaker on 11/07/[address] Orozco. Her hospitalization was complicated by concerns for cognitive impairment and inability to care for herself, prompting a psychiatry consultation. She was discharged on 11/15/2023 with home healthcare services. A six-week post-pacemaker check on 01/03/2024 showed stable pacemaker function. She reports occasional palpitations, particularly when upset, which she manages with deep breathing exercises. She denies any leg swelling, pain at the left upper chest pacemaker site, lightheadedness, dizziness, or recent illnesses. She reports shortness of breath at times and is wondering if that is due to the mitral valve disease. She notes significant weight loss, currently weighing 112 lbs, and can feel her ribs when showering. She is scheduled for eye surgery on Monday reportedly on her right eye. Her blood pressure initially was quite elevated SBP 190 mmHg, repeat blood pressure 130/72 mmHg. She reports feeling very nervous about today's appointment, was under the impression that her pacemaker was not functioning appropriately and that she would need an x-ray and possibly blood work, we reviewed the recent pacemaker check, and ensured her that the device is functioning appropriately. She plans to purchase a new blood pressure monitor. She denies any current chest pain or dyspnea. She is not currently under the care of a general validation technician. PAST MEDICAL HISTORY Diagno (more content not included)... Normal [facility] ECG B/O W INTERP (MED OFFICE )on 09-20-2024 atrial sensed ventri cular paced rhythm, 81 bpm, NE 158 ms, QRS 138 ms, QT/QTc 418/485 ms. [facility] CNPAlexa 09-17-2024 CNPN Telephone (AGCARDPOB ) ----- ANGELICA TORIBIO ([id number]) 1950 F Date Time Provider Department 09/17/24 NOMAN OROZCOKSANDROVICHAGCARDPOB During your visit today, we recorded the following information about you: Cherry Aguirre 09/17/2024 9:42 AM Signed Cardiac Clearance received from [facility] for vitreous hemorrhage removal and AC for hyphema, right eye on 09/18/2024 Form scanned and placed in 's box for review. Melody Rosales, DEVONTE 09/23/2024 9:34 AM Signed Eye MD office calls to report pt's surgery is Th 09/26/24. DEVONTE Joiner Kimberly, APRN.BROCK 09/24/2024 8:56 AM Signed From a heart rhythm and pacemaker perspective, she is ok to proceed with ophthalmology procedure on right eye. I did refer her to general cardiology at [facility] for disease of the mitral valve, I don't believe she has been seen yet. Please forward this information to the [facility] office. Thank you. Ximena Maciel APRN.BROCK Maria M Celestinsamantha Causey 09/24/2024 5:18 PM Signed Cardiac Clearance form completed, faxed and confirmation scanned in. Fifi Celestin Allergies As of Date: 09/17/2024 Noted Allergy Reaction POISON JODI 12/17/2013 14 - Other: See Comments Comments: Poison Jodi rash ZOCOR (SIMVASTATIN) 03/21/2019 17 - Myalgia Comments: Muscle aches ACTOS (PIOGLITAZONE HCL) 07/19/2005 6 - Diarrhea ALTACE (RAMIPRIL) 07/19/2005 3 - Cough ARTHROTEC 50 (DICLOFENAC-MISOPROS*12/2005 8 - GI Upset AUGMENTIN (AMOXICILLIN-POT CLAVUL*02/26/2005 8 - GI Upset CELEBREX (CELECOXIB) 07/19/2005 CODEINE 02/26/2005 11 - Vomiting CRESTOR (ROSUVASTATIN CALCIUM) 07/19/2005 17 - Myalgia Comments: Muscle aches, tried two different times at low doses and had muscle cramping in legs DEMEROL (MEPERIDINE HCL) 02/26/2005 8 - GI Upset FELDENE (PIROXICAM) 07/19/2005 8 - GI Upset GLUCOPHAGE (METFORMIN HCL) 08/31/2013 8 - GI Upset Comments: diarrhea LASIX (FUROSEMIDE) 03/30/2005 Comments: dizzy LIPITOR (ATORVASTATIN CALCIUM) 07/19/2005 17 - Myalgia Comments: Muscle aches PRAVASTATIN 01/03/2012 14 - Other: See Comments Comments: muscle aches calf SULFA (SULFONAMIDE ANTIBIOTICS) 04/22/2005 8 - GI Upset TRICOR (FENOFIBRATE MICRONIZED) 07/19/2005 ZETIA (EZETIMIBE) 07/19/2005 6 - Diarrhea Date Reviewed: 01/10/2024 Reviewed by: Teresa Zambrano LPN - Fully Assessed Reason for Visit: Cardiac Clearance [4105] Prescriptions as of 09/24/2024 - amLODIPine (NORVASC) 5 mg tablet Take 1 tablet by mouth once daily. - hydrALAZINE (APRESOLINE) 25 mg tablet Take 1 tablet by mouth three times a day. - Lancets Test blood sugar(s) 2 times daily. Dx: Other DM Code E11.22 Insulin: No - Cholecalciferol, Vitamin D3, 25 mcg (1,000 unit) cap Take 1 capsule by mouth once daily. - blood sugar diagnostic (BLOOD GLUCOSE TEST) test strip Test blood sugar(s) once daily as directed. Dx: E11.22. Insulin: no - biotin 5 mg tab Take 5 mg by mouth once daily. - acetaminophen (TYLENOL) 500 mg tablet Take 2 tablets by mouth every 8 hours as needed for pain. - Blood Pressure Monitor 1 Each once daily. Meds Comments as of 05/02/2018: Tylenol Problem List As Of Date 09/17/2024 Noted Resolved LUMBAGO [M54.50] 03/30/2005 SCIATICA [M54.30] 03/30/2005 Generalized osteoarthritis of multiple sites [M*03/30/2005 Cardiovascular disease [I25.10] 04/22/2005 Chest pain, unspecified [R07.9] 04/22/2005 08/19/2013 MIXED HYPERLIPIDEMIA [E78.2] 04/22/2005 Hypertensive kidney disease with stage 3a chron*04/22/2005 EDEMA [R60.9] 11/08/2005 Type I (juvenile type) diabetes mellitus withou* 01/03/2012 MALAISE AND FATIGUE NEC [R53.81, R53.83] Anxiety state [F41.1] LUMBAR DISC DISPLACEMENT [M51.26] ARTHROPATHY NOS-L/LEG [M17.10] 01/19/2007 Bursitis of shoulder, left [M75.52] 08/19/2010 Vitamin D deficiency [E55.9] 10/29/2012 Cellulitis of buttock [L03.317] 12/07/2012 03/09/2020 Anxiety [F41.9] 01/26/2013 External hemorrhoids [K64.4] 09/01/2013 Stage 3a chronic kidney disease (HCC) [N18.31] 12/05/2013 PTSD (post-traumatic stress disorder) [F43.10] 12/26/2014 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] 12/26/2014 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] 12/26/2014 Reactive 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] 12/30/2014 Type 2 diabetes mellitus with stage 3a chronic *02/11/2016 Cutaneous horn [L85.8] 02/11/2016 Uncontrolled type 2 diabetes mellitus without c*07/14/2016 10/05/2018 Heart murmur, systolic [R01.1] 03/21/2019 Severe nonproliferative diabetic retinopathy of*10/12/2021 Exudative age-related macular degeneration of r*11/07/2022 Complete heart block (HCC) [I44.2] 11/05/2023 Sinoatrial node dysfunction (HCC) [I49.5] 11/08/2023 Presence of permanent cardiac pacemaker [Z95.0] 11/09/2023 Hypertensive urgency [I16.0] 11/09/2023 11/15/2023 UTI due to Klebsiella species [N39.0, B (more content not included)... Normal [facility] No Panel Informationon 09-03 BLANK _ [facility] Implant Date 11/07/2023 [facility] PACEMAKER REMOTE CHECKon AV Delay Adaptive Paced Minimum (ms) 200 ms [facility] AV Delay Adaptive Sensed Minimum (ms) 170 ms [facility] AV Delay Paced (ms) 100 ms [facility] AV Delay Sensed (ms) 85 ms [facility] Chema RA Pacing Amplitude (volts) 2.0 V [facility] Chema RA Pacing Polarity BI [facility] Chema RA Pacing Pulse Width (ms) 0.4 ms [facility] Chema RA Sensing Amplitude (mvolts) 0.25 mV [facility] Chema RA Sensing Polarity BI [facility] Chema RV Pacing Amplitude (volts) 2.5 V [facility] Chema RV Pacing Polarity BI [facility] Chema RV Pacing Pulse Width (ms) 0.4 ms [facility] Chema RV Sensing Amplitude (mvolts) 1.5 mV [facility] Chema RV Sensing Polarity BI [facility] Lead1 [employer] [place] [employer] [facility] Lead2 Mfg [employer] [facility] Location RA [facility] Location RV [facility] Lower Rate (bpm) 60 {beats}/min [facility] Max Sensor Rate (bmp) 130 {beats}/min [facility] Model L311 ACCOLADE MRI [facility] Model 7841 Ingevity+IS-1 [facility] Model 7842 Ingevity+IS-1 [facility] Pacing Mode DDDR [facility] PM-Device Mfg BSX [facility] PM-Percent Pacing (A) 3 % [facility] PM-Percent Pacing (V) 100 % [facility] RA Bipolar Impedance ohms 506 ohm [facility] RV Bipolar Impedance ohms 717 ohm [facility] Serial Number [id number] [facility] Serial Number [id number] [facility] Serial Number [id number] [facility] Tracking Rate (bpm) 130 {beats}/min [facility] PM remote interrogat ion. Presenting EGM: /HOSTESS CASHIER @ 72 bpm. Interrogation shows no ventricular high rates and 3 mode switch episodes since last check. Longest ATR episodes, 2 seconds each. PMT noted, EGMs show tracking of atrial rates. Lead impedances and sensing measurements stable. Battery voltage stable. Recommended replacement time is 7.5 yrs. Ana Dalal RN NOTE TO PROVIDERS: CARD Flowsheets contain detailed device programming and testing data. Paceart/Interrogation PDF can be found under CARDIAC DATA AND REPORT, Scanned Documents section. PACEART 09/03/2024 Formattin g of this note might be different from the original. PM remote interrogation. Presenting EGM: /HOSTESS CASHIER @ 72 bpm. Interrogation shows no ventricular high rates and 3 mode switch episodes since last check. Longest ATR episodes, 2 seconds each. PMT noted, EGMs show tracking of atrial rates. Lead impedances and sensing measurements stable. Battery voltage stable. Recommended replacement time is 7.5 yrs. Ana Dalal RN NOTE TO PROVIDERS: CARD Flowsheets contain detailed device programming and testing data. Paceart/Interrogation PDF can be found under CARDIAC DATA AND REPORT, Scanned Documents section. [facility] Agustina 07-31-2024 MARTIN Telephone (AGCARDHWG ) ----- NATHANIELANGELICA Marium ([id number]) 1950 F Date Time Provider Department 07/31/24 NOMAN OROZCOHAGCARDHWG During your visit today, we recorded the following information about you: Carina Cuenca LPN 07/31/2024 3:39 PM Signed Angelica Toribio wants to know if this pacemaker will be in for the rest of her life, patient also like to know if the bumping she feels from the pacemaker is normal ? Patient would also like to know if she should have a general validation technician? Carina Cuenca LPN July 31, 2024 3:35 PM Evelin Rachel LPN 08/12/2024 8:10 AM Signed Noman Orozco MD You11 days ago Yes to both questions. MD Bang Ross Renee, LPN 08/12/2024 10:21 AM Signed Spoke with Angelica Toribio and informed them of Dr. Orozco response to pacemaker and recommendations. Patient voiced understanding. Carina Cuenca LPN August 12, 2024 10:21 AM Allergies As of Date: 07/31/2024 Noted Allergy Reaction POISON JODI 12/17/2013 14 - Other: See Comments Comments: Poison Jodi rash ZOCOR (SIMVASTATIN) 03/21/2019 17 - Myalgia Comments: Muscle aches ACTOS (PIOGLITAZONE HCL) 07/19/2005 6 - Diarrhea ALTACE (RAMIPRIL) 07/19/2005 3 - Cough ARTHROTEC 50 (DICLOFENAC-MISOPROS*12/2005 8 - GI Upset AUGMENTIN (AMOXICILLIN-POT CLAVUL*02/26/2005 8 - GI Upset CELEBREX (CELECOXIB) 07/19/2005 CODEINE 02/26/2005 11 - Vomiting CRESTOR (ROSUVASTATIN CALCIUM) 07/19/2005 17 - Myalgia Comments: Muscle aches, tried two different times at low doses and had muscle cramping in legs DEMEROL (MEPERIDINE HCL) 02/26/2005 8 - GI Upset FELDENE (PIROXICAM) 07/19/2005 8 - GI Upset GLUCOPHAGE (METFORMIN HCL) 08/31/2013 8 - GI Upset Comments: diarrhea LASIX (FUROSEMIDE) 03/30/2005 Comments: dizzy LIPITOR (ATORVASTATIN CALCIUM) 07/19/2005 17 - Myalgia Comments: Muscle aches PRAVASTATIN 01/03/2012 14 - Other: See Comments Comments: muscle aches calf SULFA (SULFONAMIDE ANTIBIOTICS) 04/22/2005 8 - GI Upset TRICOR (FENOFIBRATE MICRONIZED) 07/19/2005 ZETIA (EZETIMIBE) 07/19/2005 6 - Diarrhea Date Reviewed: 01/10/2024 Reviewed by: Teresa Zambrano LPN - Fully Assessed Prescriptions as of 08/12/2024 - amLODIPine (NORVASC) 5 mg tablet Take 1 tablet by mouth once daily. - hydrALAZINE (APRESOLINE) 25 mg tablet Take 1 tablet by mouth three times a day. - Lancets Test blood sugar(s) 2 times daily. Dx: Other DM Code E11.22 Insulin: No - Cholecalciferol, Vitamin D3, 25 mcg (1,000 unit) cap Take 1 capsule by mouth once daily. - blood sugar diagnostic (BLOOD GLUCOSE TEST) test strip Test blood sugar(s) once daily as directed. Dx: E11.22. Insulin: no - biotin 5 mg tab Take 5 mg by mouth once daily. - acetaminophen (TYLENOL) 500 mg tablet Take 2 tablets by mouth every 8 hours as needed for pain. - Blood Pressure Monitor 1 Each once daily. Meds Comments as of 05/02/2018: Tylenol Problem List As Of Date 07/31/2024 Noted Resolved LUMBAGO [M54.50] 03/30/2005 SCIATICA [M54.30] 03/30/2005 Generalized osteoarthritis of multiple sites [M*03/30/2005 Cardiovascular disease [I25.10] 04/22/2005 Chest pain, unspecified [R07.9] 04/22/2005 08/19/2013 MIXED HYPERLIPIDEMIA [E78.2] 04/22/2005 Hypertensive kidney disease with stage 3a chron*04/22/2005 EDEMA [R60.9] 11/08/2005 Type I (juvenile type) diabetes mellitus withou* 01/03/2012 MALAISE AND FATIGUE NEC [R53.81, R53.83] Anxiety state [F41.1] LUMBAR DISC DISPLACEMENT [M51.26] ARTHROPATHY NOS-L/LEG [M17.10] 01/19/2007 Bursitis of shoulder, left [M75.52] 08/19/2010 Vitamin D deficiency [E55.9] 10/29/2012 Cellulitis of buttock [L03.317] 12/07/2012 03/09/2020 Anxiety [F41.9] 01/26/2013 External hemorrhoids [K64.4] 09/01/2013 Stage 3a chronic kidney disease (HCC) [N18.31] 12/05/2013 PTSD (post-traumatic stress disorder) [F43.10] 12/26/2014 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] 12/26/2014 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] 12/26/2014 Reactive 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] 12/30/2014 Type 2 diabetes mellitus with stage 3a chronic *02/11/2016 Cutaneous horn [L85.8] 02/11/2016 Uncontrolled type 2 diabetes mellitus without c*07/14/2016 10/05/2018 Heart murmur, systolic [R01.1] 03/21/2019 Severe nonproliferative diabetic retinopathy of*10/12/2021 Exudative age-related macular degeneration of r*11/07/2022 Complete heart block (HCC) [I44.2] 11/05/2023 Sinoatrial node dysfunction (HCC) [I49.5] 11/08/2023 Presence of permanent cardiac pacemaker [Z95.0] 11/09/2023 Hypertensive urgency [I16.0] 11/09/2023 11/15/2023 UTI due to Klebsiella species [N39.0, B96.89] 11/09/2023 11/15/2023 JEREMIE (acute kidney injury) (HCC) [N17.9] 11/09/2023 11/15/2023 Other chest pain [R07.89] 11/09/2023 11/15/2023 Malnutrition of mild degree (HCC) [E44.1] 11/13/2023 Delirium [R41.0] 11/14/2023 11/15/2023 Encounter Number: [id number] (more content not included)... Normal [facility] No Panel Informationon 05-21 BLANK _ [facility] Implant Date 11/07/2023 [facility] PACEMAKER REMOTE CHECKon AV Delay Adaptive Paced Minimum (ms) 200 ms [facility] AV Delay Adaptive Sensed Minimum (ms) 170 ms [facility] AV Delay Paced (ms) 100 ms [facility] AV Delay Sensed (ms) 85 ms [facility] Chema RA Pacing Amplitude (volts) 2.0 V [facility] Chema RA Pacing Polarity BI [facility] Chema RA Pacing Pulse Width (ms) 0.4 ms [facility] Chema RA Sensing Amplitude (mvolts) 0.25 mV [facility] Chema RA Sensing Polarity BI [facility] Chema RV Pacing Amplitude (volts) 2.5 V [facility] Chema RV Pacing Polarity BI [facility] Chema RV Pacing Pulse Width (ms) 0.4 ms [facility] Chema RV Sensing Amplitude (mvolts) 1.5 mV [facility] Chema RV Sensing Polarity BI [facility] Lead1 Mfg [employer] [employer] [facility] Lead2 Mfg [facility] Location RA [facility] Location RV [facility] Lower Rate (bpm) 60 {beats}/min [facility] Max Sensor Rate (bmp) 130 {beats}/min [facility] Model L311 ACCOLADE MRI [facility] Model 7841 Ingevity+IS-1 [facility] Model 7842 Ingevity+IS-1 [facility] Pacing Mode DDDR [facility] PM-Device Mfg BSX [facility] PM-Percent Pacing (A) 2 % [facility] PM-Percent Pacing (V) 100 % [facility] RA Bipolar Impedance ohms 571 ohm [facility] RV Bipolar Impedance ohms 786 ohm [facility] Serial Number [id number] [facility] Serial Number [id number] [facility] Serial Number [id number] [facility] Tracking Rate (bpm) 130 {beats}/min [facility] PM remote interrogat ion. Presenting EGM shows AP/HOSTESS CASHIER at 62 BPM. Interrogation shows no ventricular high rate and 3 mode switch episodes since last check. Longest approximately 6 sec duration. Egm's show atrial tach w/ RV pacing. PMT has occurred w/ algorithm converting PMT. Lead impedances and sensing measurements stable. Battery voltage stable. Recommended replacement time is 8 more years. Ximena RN NOTE TO PROVIDERS: CARD Flowsheets contain detailed device programming and testing data. Paceart/Interrogation PDF can be found under CARDIAC DATA AND REPORT, Scanned Documents section. PACEART 05/21/2024 Formattin g of this note might be different from the original. PM remote interrogation. Presenting EGM shows AP/HOSTESS CASHIER at 62 BPM. Interrogation shows no ventricular high rate and 3 mode switch episodes since last check. Longest approximately 6 sec duration. Egm's show atrial tach w/ RV pacing. PMT has occurred w/ algorithm converting PMT. Lead impedances and sensing measurements stable. Battery voltage stable. Recommended replacement time is 8 more years. Ximena RN NOTE TO PROVIDERS: CARD Flowsheets contain detailed device programming and testing data. Paceart/Interrogation PDF can be found under CARDIAC DATA AND REPORT, Scanned Documents section. [facility] Agustina 04-12-2024 CNPN Telephone (AGCARDPOB ) ----- ANGELICA TORIBIO ([id number]) 1950 F Date Time Provider Department 04/12/24 NOMAN OROZCOANDROVICHAGCARDPOB During your visit today, we recorded the following information about you: Maira Sherman RN 04/12/2024 12:26 PM Signed Angelica Toribio called in stating she is having an eye procedure and asked if it would interfere with her pacemaker or cause issue with her heart rate. She was extremely vague and is unsure what the procedure is, but described it as shots in her eye. Provided fax number if her eye doctor feels some sort of clearance is needed, they may complete form and return via fax. Maira Sherman RN Allergies As of Date: 04/12/2024 Noted Allergy Reaction POISON JODI 12/17/2013 14 - Other: See Comments Comments: Poison Jodi rash ZOCOR (SIMVASTATIN) 03/21/2019 17 - Myalgia Comments: Muscle aches ACTOS (PIOGLITAZONE HCL) 07/19/2005 6 - Diarrhea ALTACE (RAMIPRIL) 07/19/2005 3 - Cough ARTHROTEC 50 (DICLOFENAC-MISOPROS*12/2005 8 - GI Upset AUGMENTIN (AMOXICILLIN-POT CLAVUL*02/26/2005 8 - GI Upset CELEBREX (CELECOXIB) 07/19/2005 CODEINE 02/26/2005 11 - Vomiting CRESTOR (ROSUVASTATIN CALCIUM) 07/19/2005 17 - Myalgia Comments: Muscle aches, tried two different times at low doses and had muscle cramping in legs DEMEROL (MEPERIDINE HCL) 02/26/2005 8 - GI Upset FELDENE (PIROXICAM) 07/19/2005 8 - GI Upset GLUCOPHAGE (METFORMIN HCL) 08/31/2013 8 - GI Upset Comments: diarrhea LASIX (FUROSEMIDE) 03/30/2005 Comments: dizzy LIPITOR (ATORVASTATIN CALCIUM) 07/19/2005 17 - Myalgia Comments: Muscle aches PRAVASTATIN 01/03/2012 14 - Other: See Comments Comments: muscle aches calf SULFA (SULFONAMIDE ANTIBIOTICS) 04/22/2005 8 - GI Upset TRICOR (FENOFIBRATE MICRONIZED) 07/19/2005 ZETIA (EZETIMIBE) 07/19/2005 6 - Diarrhea Date Reviewed: 01/10/2024 Reviewed by: Teresa Zambrano LPN - Fully Assessed Reason for Visit: Patient Question [1477] Prescriptions as of 05/08/2024 - hydrALAZINE (APRESOLINE) 25 mg tablet Take 1 tablet by mouth three times a day. - amLODIPine (NORVASC) 5 mg tablet Take 1 tablet by mouth once daily. - Lancets Test blood sugar(s) 2 times daily. Dx: Other DM Code E11.22 Insulin: No - Cholecalciferol, Vitamin D3, 25 mcg (1,000 unit) cap Take 1 capsule by mouth once daily. - blood sugar diagnostic (BLOOD GLUCOSE TEST) test strip Test blood sugar(s) once daily as directed. Dx: E11.22. Insulin: no - biotin 5 mg tab Take 5 mg by mouth once daily. - acetaminophen (TYLENOL) 500 mg tablet Take 2 tablets by mouth every 8 hours as needed for pain. - Blood Pressure Monitor 1 Each once daily. Meds Comments as of 05/02/2018: Tylenol Problem List As Of Date 04/12/2024 Noted Resolved LUMBAGO [M54.50] 03/30/2005 SCIATICA [M54.30] 03/30/2005 Generalized osteoarthritis of multiple sites [M*03/30/2005 Cardiovascular disease [I25.10] 04/22/2005 Chest pain, unspecified [R07.9] 04/22/2005 08/19/2013 MIXED HYPERLIPIDEMIA [E78.2] 04/22/2005 Hypertensive kidney disease with stage 3a chron*04/22/2005 EDEMA [R60.9] 11/08/2005 Type I (juvenile type) diabetes mellitus withou* 01/03/2012 MALAISE AND FATIGUE NEC [R53.81, R53.83] Anxiety state [F41.1] LUMBAR DISC DISPLACEMENT [M51.26] ARTHROPATHY NOS-L/LEG [M17.10] 01/19/2007 Bursitis of shoulder, left [M75.52] 08/19/2010 Vitamin D deficiency [E55.9] 10/29/2012 Cellulitis of buttock [L03.317] 12/07/2012 03/09/2020 Anxiety [F41.9] 01/26/2013 External hemorrhoids [K64.4] 09/01/2013 Stage 3a chronic kidney disease (HCC) [N18.31] 12/05/2013 PTSD (post-traumatic stress disorder) [F43.10] 12/26/2014 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] 12/26/2014 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] 12/26/2014 Reactive 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] 12/30/2014 Type 2 diabetes mellitus with stage 3a chronic *02/11/2016 Cutaneous horn [L85.8] 02/11/2016 Uncontrolled type 2 diabetes mellitus without c*07/14/2016 10/05/2018 Heart murmur, systolic [R01.1] 03/21/2019 Severe nonproliferative diabetic retinopathy of*10/12/2021 Exudative age-related macular degeneration of r*11/07/2022 Complete heart block (HCC) [I44.2] 11/05/2023 Sinoatrial node dysfunction (HCC) [I49.5] 11/08/2023 Presence of permanent cardiac pacemaker [Z95.0] 11/09/2023 Hypertensive urgency [I16.0] 11/09/2023 11/15/2023 UTI due to Klebsiella species [N39.0, B96.89] 11/09/2023 11/15/2023 JEREMIE (acute kidney injury) (HCC) [N17.9] 11/09/2023 11/15/2023 Other chest pain [R07.89] 11/09/2023 11/15/2023 Malnutrition of mild degree (HCC) [E44.1] 11/13/2023 Delirium [R41.0] 11/14/2023 11/15/2023 Encounter Status:Closed by MAIRA SHERMAN on 05/08/24 [facility] CNOVon 01-10-2024 CNOV Office Visit (INTMWS ) ----- ANGELICA TORIBIO ([id number]) 1950 F Date Time Provider Department 01/10/24 2:20 PM CARMEN JOHNSON INTMWS During your visit today, we recorded the following information about you: Temperature Pulse Respiration Blood pressure 98.4 degrees 88/minute 18/minute 136/62 Weight 58.3 kg Carmen Johnson MD 02/16/2024 12:23 AM Signed This note was created using NoteWriter. Subjective Angelica Toribio is a 73 year old female. Patient presents with: ED Follow-up: [place] ER follow up 01/07/24 SUBJECTIVE: Angelica Toribio is a 73 year old year old lady here today for ER follow up appointment for review of medical conditions. Feels good on current meds with current BP. Reviewed that had first Pacemaker check 01/02/24. Feels like a rumbling in her chest. So went to ER in [place]. Had pressure in chest. No feeling of reflux or indigestion. Ruled out for acute CO. Still taking hydralazine 25 mg TID. Amlodipine half of 10mg pill daily. Has cataracts--large in left and smaller in right. Will see Dr. Barragan at [facility]. Still getting shots for retina. PAST MEDICAL HISTORY No date: Anxiety state, unspecified No date: Displacement of lumbar intervertebral disc without myelopathy No date: DM type 2 (diabetes mellitus, type 2) ([facility]) No date: Edema No date: Other malaise and fatigue No date: Unspecified essential hypertension Current Outpatient Medications Medication Sig hydrALAZINE (APRESOLINE) 10 mg tablet Take 2.5 tablets by mouth three times a day. Lancets Test blood sugar(s) 2 times daily. Dx: Other DM Code E11.22 Insulin: No amLODIPine (NORVASC) 10 mg tablet Take 1 tablet by mouth once daily. (Patient taking differently: Take 5 mg by mouth once daily.) Cholecalciferol, Vitamin D3, 25 mcg (1,000 unit) cap Take 1 capsule by mouth once daily. blood sugar diagnostic (BLOOD GLUCOSE TEST) test strip Test blood sugar(s) once daily as directed. Dx: E11.22. Insulin: no biotin 5 mg tab Take 5 mg by mouth once daily. acetaminophen (TYLENOL) 500 mg tablet Take 2 tablets by mouth every 8 hours as needed for pain. Blood Pressure Monitor 1 Each once daily. No current facility-administered medications for this visit. Review of Systems Objective BP 136/62 Pulse 88 Temp 36.9 ?C (98.4 ?F) Resp 18 Wt 58.3 kg (128 lb 8 oz) SpO2 99% BMI 25.10 kg/m? Physical Exam Constitutional: Appearance: Normal appearance. HENT: Head: Normocephalic. Eyes: Conjunctiva/sclera: Conjunctivae normal. Cardiovascular: Rate and Rhythm: Normal rate and regular rhythm. Heart sounds: Normal heart sounds. Pulmonary: Effort: Pulmonary effort is normal. Breath sounds: Normal breath sounds. Chest: Comments: Scar from pacemaker site looks good Musculoskeletal: Right lower le+ Pitting Edema present. Left lower le+ Pitting Edema present. Skin: General: Skin is warm and dry. Neurological: General: No focal deficit present. Mental Status: She is alert and oriented to person, place, and time. Psychiatric: Mood and Affect: Mood normal. Behavior: Behavior normal. Thought Content: Thought content normal. Judgment: Judgment normal. Assessment and Plan Encounter Diagnosis ICD-10-CM 1. Primary Hypertension I10 COMPREHENSIVE METABOLIC PANEL Control is better. Stay on same doses of med. See patient instructions 2. Bilateral lower extremity edema R60.0 Getting better since dose of amlodipine decreasd to 5 mg. See patient instructions 3. Anemia, unspecified type D64.9 COMPLETE BLOOD COUNT VITAMIN B12 IRON AND TIBC FOLATE, SERUM FERRITIN Continue follow up and present management 4. S/P cardiac pacemaker procedure Z95.0 Has had follow up. 5. Anxiety state F41.1 Emotional support given. Above issues addressed with patient. Reviewed ER evaluation. Patient involved in shared decision making for management of medical issues. History and medications reviewed. Epic updated as needed Refills and/or prescriptions taken care of and meds adjusted as indicated after reviewed history, exam and labs. Health Maintenance reviewed. Updated record and/or ordered tests as recorded. Encouraged on efforts at healthy diet and regular exercise and adequate sleep. I spent a total of 46 minutes on the date of the service which included jccb-st-ibab patient care, completing clinical documentation, obtaining and/or reviewing separately obtained history, performing a medically appropriate examination, counseling and educating the patient/family/caregiver, ordering medications, tests, or procedures, independently interpreting results (not separately reported), and communicating results to the patient/family/caregiver. MD Alex Lawson Liza D, MD 01/10/2024 3:08 PM Addendum Will keep hydralazine at 25 mg three times daily. New prescript (more content not included)... Normal [facility] CNPAlexa 01-08-2024 CNPN Telephone (INTMWS) ----- ANGELICA TORIBIO ([id number]) 1950 F Date Time Provider Department 01/08/24 CARMEN JOHNSONWS During your visit today, we recorded the following information about you: Heidi Mazariegos, RN 01/08/2024 12:00 PM Signed Pt called I asking about Hydralazine, she states she went to the ER last night for chest pain. They prescribed Hydralazine 10 mg take 2.[address] Alex had her taking Hydralazine 25 mg po TID, and she has these at home. She states she is going to continue to take these. I told her it's the same amount, so that would be fine. I tried setting the Pt up with an ER f/u but she had hung up on me. I called back and left a message to call back and schedule. Marita Maciel, DEVONTE 01/08/2024 12:52 PM Signed See other telephone encounter. Marita Maciel RN Allergies As of Date: 01/08/2024 Noted Allergy Reaction POISON JODI 12/17/2013 14 - Other: See Comments Comments: Poison Jodi rash ZOCOR (SIMVASTATIN) 03/21/2019 17 - Myalgia Comments: Muscle aches ACTOS (PIOGLITAZONE HCL) 07/19/2005 6 - Diarrhea ALTACE (RAMIPRIL) 07/19/2005 3 - Cough ARTHROTEC 50 (DICLOFENAC-MISOPROS*12/2005 8 - GI Upset AUGMENTIN (AMOXICILLIN-POT CLAVUL*02/26/2005 8 - GI Upset CELEBREX (CELECOXIB) 07/19/2005 CODEINE 02/26/2005 11 - Vomiting CRESTOR (ROSUVASTATIN CALCIUM) 07/19/2005 17 - Myalgia Comments: Muscle aches, tried two different times at low doses and had muscle cramping in legs DEMEROL (MEPERIDINE HCL) 02/26/2005 8 - GI Upset FELDENE (PIROXICAM) 07/19/2005 8 - GI Upset GLUCOPHAGE (METFORMIN HCL) 08/31/2013 8 - GI Upset Comments: diarrhea LASIX (FUROSEMIDE) 03/30/2005 Comments: dizzy LIPITOR (ATORVASTATIN CALCIUM) 07/19/2005 17 - Myalgia Comments: Muscle aches PRAVASTATIN 01/03/2012 14 - Other: See Comments Comments: muscle aches calf SULFA (SULFONAMIDE ANTIBIOTICS) 04/22/2005 8 - GI Upset TRICOR (FENOFIBRATE MICRONIZED) 07/19/2005 ZETIA (EZETIMIBE) 07/19/2005 6 - Diarrhea Date Reviewed: 01/07/2024 Reviewed by: Brooks Childs RN - Fully Assessed Reason for Visit: Patient Update [1234] Medication Question [1478] Prescriptions as of 01/08/2024 - hydrALAZINE (APRESOLINE) 10 mg tablet Take 2.5 tablets by mouth three times a day. - Lancets Test blood sugar(s) 2 times daily. Dx: Other DM Code E11.22 Insulin: No - amLODIPine (NORVASC) 10 mg tablet Take 1 tablet by mouth once daily. - Cholecalciferol, Vitamin D3, 25 mcg (1,000 unit) cap Take 1 capsule by mouth once daily. - blood sugar diagnostic (BLOOD GLUCOSE TEST) test strip Test blood sugar(s) once daily as directed. Dx: E11.22. Insulin: no - biotin 5 mg tab Take 5 mg by mouth once daily. - acetaminophen (TYLENOL) 500 mg tablet Take 2 tablets by mouth every 8 hours as needed for pain. - Blood Pressure Monitor 1 Each once daily. Meds Comments as of 05/02/2018: Tylenol Problem List As Of Date 01/08/2024 Noted Resolved LUMBAGO [M54.50] 03/30/2005 SCIATICA [M54.30] 03/30/2005 Generalized osteoarthritis of multiple sites [M*03/30/2005 Cardiovascular disease [I25.10] 04/22/2005 Chest pain, unspecified [R07.9] 04/22/2005 08/19/2013 MIXED HYPERLIPIDEMIA [E78.2] 04/22/2005 Hypertensive kidney disease with stage 3a chron*04/22/2005 EDEMA [R60.9] 11/08/2005 Type I (juvenile type) diabetes mellitus withou* 01/03/2012 MALAISE AND FATIGUE NEC [R53.81, R53.83] Anxiety state [F41.1] LUMBAR DISC DISPLACEMENT [M51.26] ARTHROPATHY NOS-L/LEG [M17.10] 01/19/2007 Bursitis of shoulder, left [M75.52] 08/19/2010 Vitamin D deficiency [E55.9] 10/29/2012 Cellulitis of buttock [L03.317] 12/07/2012 03/09/2020 Anxiety [F41.9] 01/26/2013 External hemorrhoids [K64.4] 09/01/2013 Stage 3a chronic kidney disease (HCC) [N18.31] 12/05/2013 PTSD (post-traumatic stress disorder) [F43.10] 12/26/2014 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] 12/26/2014 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] 12/26/2014 Reactive 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] 12/30/2014 Type 2 diabetes mellitus with stage 3a chronic *02/11/2016 Cutaneous horn [L85.8] 02/11/2016 Uncontrolled type 2 diabetes mellitus without c*07/14/2016 10/05/2018 Heart murmur, systolic [R01.1] 03/21/2019 Severe nonproliferative diabetic retinopathy of*10/12/2021 Exudative age-related macular degeneration of r*11/07/2022 Complete heart block (HCC) [I44.2] 11/05/2023 Sinoatrial node dysfunction (HCC) [I49.5] 11/08/2023 Presence of permanent cardiac pacemaker [Z95.0] 11/09/2023 Hypertensive urgency [I16.0] 11/09/2023 11/15/2023 UTI due to Klebsiella species [N39.0, B96.89] 11/09/2023 11/15/2023 JEREMIE (acute kidney injury) (HCC) [N17.9] 11/09/2023 11/15/2023 Other chest pain [R07.89] 11/09/2023 11/15/2023 Malnutrition of mild degree (HCC) [E44.1] 11/13/2023 Delirium [R41.0] 11/14/2023 11/15/2023 Encounter Status:Closed by JACKY (more content not included)... Normal [facility] ED NOTEon 01-08-2024 ED NOTE HNO ID: [id number] Author: UBALDO RAMOS, RN Service: Emergency Medicine Author Type: Registered Nurse Type: ED Notes Filed: 01/08/2024 01:42 Note Text: Reviewed dc orders with pt, script x 1 reviewed. Pt verbalized understanding, denies any further needs. Pt and friend ambulatory with lobby to call for ride home. Normal [facility] ED PROV NOTEon 01-08-2024 ED PROV NOTE HNO ID: [id number] Author: EVELIN YANG MD Service: Emergency Medicine Author Type: Physician Type: ED Provider Notes Filed: 01/15/2024 00:56 Note Text: ED Provider Note Patient Name: Angelica Toribio : 1950 SERVICE DATE: 01/07/24 History Patient presents with: Chest Pain The patient is a 74-year-old female presenting today with complaint of chest discomfort. She states that she has had a pressure or heaviness to her chest since around 12 PM earlier today. States has been intermittent in nature. She initially thought it was indigestion. She called her nurse hotline who recommended she come into the emergency department so she presents now. She denies any shortness of breath. Denies any nausea or vomiting. Denies any diaphoresis. She denies any radiation of the pain to her back arms or neck. She has not had pain similar to this before. She is concerned because she recently had a pacemaker placed is not sure if it is a symptom of her pacemaker malfunctioning. Past medical history significant for diabetes and hypertension. PAST MEDICAL HISTORY No date: Anxiety state, unspecified No date: Displacement of lumbar intervertebral disc without myelopathy No date: DM type 2 (diabetes mellitus, type 2) ([facility]) No date: Edema No date: Other malaise and fatigue No date: Unspecified essential hypertension PAST SURGICAL HISTORY 11/07/2023: BASIC PACEMAKER DUAL CHAMBER; Left Comment: [employer] dual PPM for CHB; Dr. Orozco at [facility] 06/12/1992: TOTAL ABDOMINAL HYSTERECT W/WO RMVL TUBE OVARY Comment: Hysterectomy, Partial-one ovary left FAMILY HISTORY Problem Relation Age of Onset Heart Father [place] Osteoporosis Mother ? Social History Tobacco Use Smoking status: Never Smokeless tobacco: Never Vaping Use Vaping Use: Never used Substance and Sexual Activity Alcohol use: No Drug use: No Sexual activity: Not Currently ALLERGIES Allergen Reactions Poison Jodi Other: See Comments Poison Jodi rash Zocor [Simvastatin] Myalgia Muscle aches Actos [Pioglitazone* Diarrhea Altace [Ramipril] Cough Arthrotec 50 [Diclo* GI Upset Augmentin [Amoxicil* GI Upset Celebrex [Celecoxib] Codeine Vomiting Crestor [Rosuvastat* Myalgia Muscle aches, tried two different times at low doses and had muscle cramping in legs Demerol [Meperidine* GI Upset Feldene [Piroxicam] GI Upset Glucophage [Metform* GI Upset diarrhea Lasix [Furosemide] dizzy Lipitor [Atorvastat* Myalgia Muscle aches Pravastatin Other: See Comments muscle aches calf Sulfa (Sulfonamide * GI Upset Tricor [Fenofibrate* Zetia [Ezetimibe] Diarrhea Review of Systems Constitutional: Negative for activity change, appetite change, chills, fatigue and fever. HENT: Negative for congestion, ear pain, rhinorrhea and sore throat. Respiratory: Negative for cough, chest tightness, shortness of breath, wheezing and stridor. Cardiovascular: Positive for chest pain. Negative for palpitations and leg swelling. Gastrointestinal: Negative for abdominal pain, diarrhea, nausea and vomiting. Genitourinary: Negative for dysuria, frequency and urgency. Musculoskeletal: Negative for arthralgias and myalgias. Skin: Negative for rash and wound. Neurological: Negative for dizziness and headaches. Psychiatric/Behavioral: Negative for self-injury and suicidal ideas. All other systems reviewed and are negative. Physical Exam Vitals [01/07/242022] BP Pulse Temp Temp src Resp SpO2 Weight Height 169/68 (!) 100 37 ?C (98.6 ?F) Temporal 16 99 % -- -- Physical Exam Vitals and nursing note reviewed. Constitutional: General: She is not in acute distress. Appearance: She is well-developed. HENT: Head: Normocephalic and atraumatic. Nose: Nose normal. Mouth/Throat: Mouth: Mucous membranes are moist. Eyes: Extraocular Movements: Extraocular movements intact. Pupils: Pupils are equal, round, and reactive to light. Cardiovascular: Rate and Rhythm: Normal rate and regular rhythm. Pulses: Carotid pulses are 2+ on the right side and 2+ on the left side. Radial pulses are 2+ on the right side and 2+ on the left side. Dorsalis pedis pulses are 2+ on the right side and 2+ on the left side. Posterior tibial pulses are 2+ on the right side and 2+ on the left side. Heart sounds: Normal heart sounds. No murmur heard. No friction rub. No gallop. Pulmonary: Effort: Pulmonary effort is normal. No respiratory distress. Breath sounds: Normal breath sounds. No decreased breath sounds, wheezing, rhonchi or rales. Abdominal: General: Bowel sounds are normal. There is no distension. Palpations: Abdomen is soft. Tenderness: There is no abdominal tenderness. Musculoskeletal: General: Normal range of motion. Cervical back: Normal range of motion and neck supple. Right lower leg: No edema. Left lower leg: No edema. Skin: General: Skin is warm and dry. Neurol (more content not included)... Normal [facility] HIGH SENSITIVITY TROPONIN T (THIRD) 3 HRS AFTER INITIALon 01-08-2024 Troponin T.cardiac High sensitivity method [Mass/Vol] 26 ng/L High <12 [facility] Comment on above: Order Comment: Moise lewis Type: BLOOD SPECIMEN Ordering Facility: [facility] Address: [address] [place] [address] Performed By: #### L [id number] #### [facility] CLIA [id number] [address] [place], [place] [id number] [facility] Basic metabolic 2000 panelon 01-07-2024 Anion gap [Moles/Vol] 14 mmol/L Normal 8-15 [facility] Comment on above: Order Comment: Moise lewis Type: BLOOD SPECIMEN Ordering Facility: [facility] Address: [address] [place] [address] Performed By: #### L [id number] #### [facility] CLIA [id number] [address] [place] [address] [place] Calcium [Mass/Vol] 9.2 mg/dL Normal 8.5-10.2 [facility] Comment on above: Order Comment: Moise lewis Type: BLOOD SPECIMEN Ordering Facility: [facility] Address: [address] [place] [address] Performed By: #### L [id number] #### [facility] CLIA [id number] [address] [place] [address] [facility] Chloride [Moles/Vol] 103 mmol/L Normal 98-107 [facility] Comment on above: Order Comment: Moise lewis Type: BLOOD SPECIMEN Ordering Facility: [facility] Address: [address] [place] [address] Performed By: #### L [id number] #### [facility] CLIA [id number] [address] [place] [address] [place] CO2 [Moles/Vol] 22 mmol/L Normal 22-30 [facility] Comment on above: Order Comment: Moise lewis Type: BLOOD SPECIMEN Ordering Facility: [facility] Address: [address] [place] [address] Performed By: #### L [id number] #### [facility] CLIA [id number] [address] OF [facility] Creatinine [Mass/Vol] 1.05 mg/dL High 0.58-0.96 [facility] Comment on above: Order Comment: Moise men Type: BLOOD SPECIMEN Ordering Facility: [facility] Address: [address] [place] [address] Performed By: #### L [id number] #### [facility] CLIA [id number] [address] Creatinine and Glomerular filtration rate.predicted panel (S/P/Bld) 57 mL/min/1.73m??? Low >=60 [facility] Comment on above: Order Comment: Moise lewis Type: BLOOD SPECIMEN Ordering Facility: [facility] Address: [address] [place] [address] Result Comment: Coral mated Glomerular Filtration Rate (eGFR) is calculated using the 2020 CKD-EPI creatinine equation. This equation utilizes serum creatinine, sex, and age as parameters. The creatinine assay has traceable calibration to isotope dilution-mass spectrometry. Refer to KDIGO guidelines for clinical interpretation. In patients with unstable renal function, e.g. those with acute kidney injury, the eGFR may not accurately reflect actual GFR. Performed By: #### L [id number] #### [facility] CLIA [id number] [address] [place] [address] [place] Glucose [Mass/Vol] 133 mg/dL High 74-99 [facility] Comment on above: Order Comment: Moise lewis Type: BLOOD SPECIMEN Ordering Facility: [facility] Address: [address] [place] [address] Result Comment: The [place] Diabetes [employer] (ADA) provides guidance for cutoff values for fasting glucose and random glucose. The ADA defines fasting as no caloric intake for at least 8 hours. Fasting plasma glucose results between 100 to 125 mg/dL indicate increased risk for diabetes (prediabetes). Fasting plasma glucose results greater than or equal to 126 mg/dL meet the criteria for diagnosis of diabetes. In the absence of unequivocal hyperglycemia, results should be confirmed by repeat testing. In a patient with classic symptoms of hyperglycemia or hyperglycemic crisis, random plasma glucose results greater than or equal to 200 mg/dL meet the criteria for diagnosis of diabetes. Reference: Standards of Medical Care in Diabetes 2016, [place] [employer]. Diabetes Care. 2016.39(Suppl 1). Performed By: #### L [id number] #### [facility] CLIA [id number] [address] [place] [address] [place] Potassium [Moles/Vol] 3.9 mmol/L Normal 3.7-5.1 [facility] Comment on above: Order Comment: Moise lewis Type: BLOOD SPECIMEN Ordering Facility: [facility] Address: [address] [place] [address] Performed By: #### L [id number] #### [facility] CLIA [id number] [address] [place], [place] [id number] [place] Sodium [Moles/Vol] 139 mmol/L Normal 136-144 [facility] Comment on above: Order Comment: Moise lewis Type: BLOOD SPECIMEN Ordering Facility: [facility] Address: [address] [place] [address] Performed By: #### L [id number] #### [facility] CLIA [id number] [address] [place], [place] [phone] [place] Urea nitrogen [Mass/Vol] 13 mg/dL Normal 7-21 [facility] Comment on above: Order Comment: Speci men Type: BLOOD SPECIMEN Ordering Facility: [facility] Address: [address] [place] [address] Performed By: #### L [id number] #### [facility] CLIA [id number] [address] [place] [address] [place] CBC W Auto Differential pane l (Bld)on 01-07-2024 Basophils (Bld) [#/Vol] 0.04 10*3/uL Normal <0.11 [facility] Comment on above: Order Comment: Speci men Type: BLOOD SPECIMEN Ordering Facility: [facility] Address: [address] [place] [address] Performed By: #### L [id number] #### [facility] CLIA [id number] [address] [place] [address] [place] Basophils/100 WBC (Bld) 0.9 % Normal [facility] Comment on above: Order Comment: Speci men Type: BLOOD SPECIMEN Ordering Facility: [facility] Address: [address] [place] [address] Performed By: #### L [id number] #### [facility] CLIA [id number] [address] [place] [address] [place] Differential cell count method Nom (Bld) Auto Normal [facility] Comment on above: Order Comment: Speci men Type: BLOOD SPECIMEN Ordering Facility: [facility] Address: [address] [place] [address] Performed By: #### L [id number] #### [facility] CLIA [id number] [address] [place] [address] [place] Eosinophils (Bld) [#/Vol] 0.20 10*3/uL Normal <0.46 [facility] Comment on above: Order Comment: Speci men Type: BLOOD SPECIMEN Ordering Facility: [facility] Address: [address] [place] [address] Performed By: #### L [id number] #### [facility] CLIA [id number] [address] [place] [address] [place] Eosinophils/100 WBC (Bld) 4.4 % Normal [facility] Comment on above: Order Comment: Speci men Type: BLOOD SPECIMEN Ordering Facility: [facility] Address: [address] [place] [address] Performed By: #### L [id number] #### [facility] CLIA [id number] [address] [place] [address] [place] Erythrocyte distribution width (RBC) [Ratio] 13.3 % Normal 11.5-15.0 [facility] Comment on above: Order Comment: Speci men Type: BLOOD SPECIMEN Ordering Facility: [facility] Address: [address] [place] [address] Performed By: #### L [id number] #### [facility] CLIA [id number] [address] [place] [address] [place] Hematocrit (Bld) [Volume fraction] 30.2 % Low 36.0-46.0 [facility] Comment on above: Order Comment: Speci men Type: BLOOD SPECIMEN Ordering Facility: [facility] Address: [address] [place] [address] Performed By: #### L [id number] #### [facility] CLIA [id number] [address] [place] [address] [place] Hemoglobin (Bld) [Mass/Vol] 10.0 g/dL Low 11.5-15.5 [facility] Comment on above: Order Comment: Speci men Type: BLOOD SPECIMEN Ordering Facility: [facility] Address: [address] [place] [address] Performed By: #### L [id number] #### [facility] CLIA [id number] [address] [place] [address] [place] Immature granulocytes (Bld) [#/Vol] 10*3/uL Normal <0.10 [facility] Comment on above: Order Comment: Speci men Type: BLOOD SPECIMEN Ordering Facility: [facility] Address: [address] [place] [address] Performed By: #### L [id number] #### [facility] CLIA [id number] [address] [place] [address] [place] Immature granulocytes/100 WBC (Bld) 0.2 % Normal [facility] Comment on above: Order Comment: Speci men Type: BLOOD SPECIMEN Ordering Facility: [facility] Address: [address] [place] [address] Performed By: #### L [id number] #### [facility] CLIA [id number] [address] [place] [address] [place] Lymphocytes (Bld) [#/Vol] 1.30 10*3/uL Normal 1.00-4.00 [facility] Comment on above: Order Comment: Speci men Type: BLOOD SPECIMEN Ordering Facility: [facility] Address: [address] [place] [address] Performed By: #### L [id number] #### [facility] CLIA [id number] [address] [place] [address] Lymphocytes/100 WBC (Bld) 28.4 % Normal [facility] Comment on above: Order Comment: Speci men Type: BLOOD SPECIMEN Ordering Facility: [facility] Address: [address] [place] [address] Performed By: #### L [id number] #### [facility] CLIA [id number] [address] [place] MCH (RBC) [Entitic mass] 30.7 pg Normal 26.0-34.0 [facility] Comment on above: Order Comment: Speci men Type: BLOOD SPECIMEN Ordering Facility: [facility] Address: [address] [place] [address] Performed By: #### L [id number] #### [facility] CLIA [id number] [address] [place] MCHC (RBC) [Mass/Vol] 33.1 g/dL Normal 30.5-36.0 [facility] Comment on above: Order Comment: Speci men Type: BLOOD SPECIMEN Ordering Facility: [facility] Address: [address] [place] [address] Performed By: #### L [id number] #### [facility] CLIA [id number] [address] [place] [address] [place] MCV (RBC) [Entitic vol] 92.6 fL Normal 80.0-100.0 [facility] Comment on above: Order Comment: Speci men Type: BLOOD SPECIMEN Ordering Facility: [facility] Address: [address] [place] [address] Performed By: #### L [id number] #### [facility] CLIA [id number] [address] [place] [address] [place] Monocytes (Bld) [#/Vol] 0.41 10*3/uL Normal <0.87 [facility] Comment on above: Order Comment: Speci men Type: BLOOD SPECIMEN Ordering Facility: [facility] Address: [address] [place] [address] Performed By: #### L [id number] #### [facility] CLIA [id number] [address] [place] Monocytes/100 WBC (Bld) 9.0 % Normal [facility] Comment on above: Order Comment: Speci men Type: BLOOD SPECIMEN Ordering Facility: [facility] Address: [address] [place] [address] Performed By: #### L [id number] #### [facility] CLIA [id number] [address] [place] [address] [place] Neutrophils (Bld) [#/Vol] 2.61 10*3/uL Normal 1.45-7.50 [facility] Comment on above: Order Comment: Speci men Type: BLOOD SPECIMEN Ordering Facility: [facility] Address: [address] [place] [address] Performed By: #### L [id number] #### [facility] CLIA [id number] [address] [place] [address] [place] Neutrophils/100 WBC (Bld) 57.1 % Normal [facility] Comment on above: Order Comment: Speci men Type: BLOOD SPECIMEN Ordering Facility: [facility] Address: [address] [place] [address] Performed By: #### L [id number] #### [facility] CLIA [id number] [address] [place] [address] [place] Nucleated RBC (Bld) [#/Vol] Normal [facility] Comment on above: Order Comment: Speci men Type: BLOOD SPECIMEN Ordering Facility: [facility] Address: [address] [place] [address] Performed By: #### L [id number] #### [facility] CLIA [id number] [address] [place] [address] [place] Nucleated RBC/100 WBC (Bld) [Ratio] Normal [facility] Comment on above: Order Comment: Speci men Type: BLOOD SPECIMEN Ordering Facility: [facility] Address: [address] [place] [address] Performed By: #### L [id number] #### [facility] CLIA [id number] [address] [place] [address] [place] Platelet mean volume (Bld) [Entitic vol] 9.7 fL Normal 9.0-12.7 [facility] Comment on above: Order Comment: Speci men Type: BLOOD SPECIMEN Ordering Facility: [facility] Address: [address] [place] [address] Performed By: #### L [id number] #### [facility] CLIA [id number] [address] [place] [address] [place] Platelets (Bld) [#/Vol] 157 10*3/uL Normal 150-400 [facility] Comment on above: Order Comment: Speci men Type: BLOOD SPECIMEN Ordering Facility: [facility] Address: [address] [place] [address] Performed By: #### L [id number] #### [facility] CLIA [id number] [address] [place] [address] [facility] RBC (Bld) [#/Vol] 3.26 10*6/uL Low 3.90-5.20 [facility] Comment on above: Order Comment: Speci men Type: BLOOD SPECIMEN Ordering Facility: [facility] Address: [address] [place] [address] Performed By: #### L [id number] #### [facility] CLIA [id number] [address] [place] [address] [facility] WBC (Bld) [#/Vol] 4.57 10*3/uL Normal 3.70-11.00 [facility] Comment on above: Order Comment: Speci men Type: BLOOD SPECIMEN Ordering Facility: [facility] Address: [address] [place] [address] Performed By: #### L [id number] #### [facility] CLIA [id number] [address] [place] [id number] [facility] ECG COMPLETEon 01-07-2024 ECG COMPLETE Ventricular Rate : 9 1 BPM Atrial Rate : 91 BPM P-R Interval : 150 ms QRS Duration : 136 ms Q-T Interval : 420 ms QTC Calculation(Bazett) : 516 ms Calculated P Gorham : 39 degrees Calculated R Gorham : 259 degrees Calculated T Gorham : 58 degrees Atrial-sensed ventricular-paced rhythm ABNORMAL ECG WHEN COMPARED WITH ECG OF 28-Nov-2023 10:20, VENT. RATE HAS DECREASED by 2 bpm Confirmed by MD JOSE VINAYAK ([id number]) on 2024 9:00:32 AM NAME : ANGELICA TORIBIO PID : [id number] : 1950 Gender : Female Race : ORD : [id number] Procedure Date : Jan 07 2024 20:27:53 Edit Date : 2024 09:00:36 Diagnosis: Atrial-sensed ventricular-paced rhythm ABNORMAL ECG WHEN COMPARED WITH ECG OF 28-Nov-2023 10:20, VENT. RATE HAS DECREASED by 2 bpm Confirmed by MD JOSE VINAYAK ([id number]) on 2024 9:00:32 AM Test Reason : cp Location : 191 : LDCARD ED Overread By : MD JOSE VINAYAK Edited By : MD JOSE VINAYAK Referred By : [place], Acquired by : YESSICA FRANCIS Normal [facility] ED NOTEon 01-07-2024 ED NOTE HNO ID: [id number] Author: BROOKS CHILDS, RN Service: Emergency Medicine Author Type: Registered Nurse Type: ED Notes Filed: 01/07/2024 20:27 Note Text: Pt c/o chest pain pressure heaviness that started around 1200 today. [place], warm, dry. No apparent distress. Alert and oriented. States feels like indigestion. EKG in room arrival. AV paced rhythm on arrival Normal [facility] HIGH SENSITIVITY TROPONIN T (INITIAL)on 01-07-2024 Troponin T.cardiac High sensitivity method [Mass/Vol] 27 ng/L High <12 [facility] Comment on above: Order Comment: Moise lewis Type: BLOOD SPECIMEN Ordering Facility: [facility] Address: [address] [place] [address] Performed By: #### L [id number] #### [facility] CLIA [id number] [address] [place] [address] HIGH SENSITIVITY TROPONIN T (SECOND)on 01-07-2024 Troponin T.cardiac High sensitivity method [Mass/Vol] 25 ng/L High <12 [facility] Comment on above: Order Comment: Moise lewis Type: BLOOD SPECIMEN Ordering Facility: [facility] Address: [address] [place] [address] Performed By: #### L [id number] #### [facility] CLIA [id number] [address] [place] [address] [facility] [place] XR CHEST 1V FRONTALon 2023 XR CHEST 1V FRONTAL * * *Final Report* * * DATE OF EXAM: Jan 07 2024 9:33PM LDX [id number] - XR CHEST 1V FRONTAL / PROCEDURE REASON: Chest pain * * * * Physician Interpretation * * * * EXAMINATION: CHEST RADIOGRAPH (PORTABLE SINGLE VIEW AP) Exam Date/Time: 01/07/2024 9:33 PM CLINICAL INFORMATION ( PROVIDED BY ORDERING CLINICIAN) : Chest pain Comparison: 12/11/2023 RESULT: See impression. IMPRESSION: Lines, tubes, and devices: AV pacer unchanged. Lungs and pleura: No confluent infiltrate. No large pleural effusion. No pneumothorax. Cardiomediastinal silhouette: Within normal limits. Other: No acute bony abnormality. Adjuster Electrical Contacts: REESE Transcribe Date/Time: Jan 07 2024 10:22P Dictated by : MITCH CAUSEY MD This examination was interpreted and the report reviewed and electronically signed by: MITCH CAUSEY MD on Jan 07 2024 10:23PM EST [id number] Normal [facility] CNPNon 01-03-2024 CNPN Telephone (INTMWS) ----- ANGELICA TORIBIO ([id number]) 1950 F Date Time Provider Department 01/03/24 CARMEN JOHNSON INTMWS During your visit today, we recorded the following information about you: Manisha Garcia RN 01/03/2024 10:24 AM Signed Patient reports her are swelling since she started taking amlodipine 10 mg daily and hydralazine 25 mg 3 x's day. Reports the pharmacist told her the amlodipine is causing the swelling in her feet, and doctor will need to prescribe something else. Reports her feet hurt, and her shoes are tight. Reports there is a little bit of swelling in her ankles. Reports the swelling never goes down. Reports both of these pills were prescribed when she was in [facility] hospital and at that time, [facility] also discontinued 2 medications prescribed by pcp. Patient doesn't know which ones were d/c'd. Patient declined appt with pcp office. Asking pcp to please advise and phone patient with reply. [phone] Carmen Johnson MD 01/04/2024 1:32 AM Signed Last 5 Encounter BP Readings: Date: BP: 12/13/2023 128/64 12/11/2023 138/62 11/28/2023 147/76 11/23/2023 142/76 11/20/2023 168/64 Her BPs have been good Both meds she mentioned (Amlodipine and hydralazine) can cause leg swelling. Recommend slowly decreasing meds to avoid rebound high BP while working on lowering amlodipine followed by lowering hydralazine as able as needed. I know she just refilled meds, but can send refill for hydralazine 10 mg (instead of 25mg three times daily now). If amlodipine pill not too tiny, can cut dose in half . Recommend appointment in office in next couple weeks so can check on BP and leg swelling. Have opening 01/17 in afternoon (make 40 minute slot since patient usually anxious and has several concerns to address; if comes earlier in afternoon, won't have to wait as long to be seen) Jennifer Worley LPN 01/04/2024 10:11 AM Signed Left message to call AND speak to nurse. Heidi Oreilly LPN, RN 01/05/2024 3:14 PM Signed Pt called and is notified of providers message and instructions. Pt states another provider told her to stop taking the amlodipine and she hasn't taken it for 4 days and the swelling has gone down. She said the dosing on the hydralazine is fine, it was the amlodipine that was causing the issue. I tried to schedule the Pt in on 01/18/[address] Johnson and the Pt states she is having eye surgery that day. I told I could get her in another day that week and she states she has two other appointments that week, and this is too many appointments and she doesn't;t need to be see her BP is fine and the swelling is going down. I tried telling her that when changing BP medications they need to f/u to make sure things stay where they need to be and tried to schedule her for the third week in January. Pt states all these doctors are telling her different things and she may need to be switching providers and hung up on me. DEVONTE San Amanda, RN 01/06/2024 11:51 AM Signed Pt called in and was asking about medications. She thought the Amlodipine and Hydralazine were for anxiety. I let her know they were for for BP but worked on different mechanisms. Pt had stopped taking the Amlodipine but will cut it in half and start taking a half a pill with the 25 mg of Hydralazine. Pt will call in next week with an update of BPs. I let her know provider could let her know what to do with medication when she called in these numbers. Pt is scheduled with Dr Johnson on 01/24/24. Please call in compression socks for Pt to [facility] and call her when sent. Pt will also need the the 10 mg of Hydralazine called in. Carmen Johnson MD 01/08/2024 12:32 AM Signed Below noted. Okay to make the adjustment as noted below with amlodipine 2.5 mg and hydralazine lowered to 10 mg dose, as long as BP stays controlled. Noted that she has been getting instruction on her BP from another provider. I agree that it would be confusing to have more than one provider giving her instructions--verify who the other provider is. If she is also following with cardiology, it is okay for her to have them manage her BP instead of me so that she does not get confused on what doses she should be taking, but if she thought the amlodipine and hydralazine were supposed to be for anxiety instead of BP, which doctor told her to stop the amlodipine? I can collaborate with the other providers and/or she can decide who she wants managing meds for now till can collaborate wit hthe other providers. Make sure to put away the hydralazine 25 mg pills in case needs to resume them plus to make sure does not accidentally take them along with the 10 mg tablets. Noted has 01/23 appointment. Manisha Garcia, RN 01/08/2024 12:43 PM Signed Patient phoned stating she just spoke to a nurse and she is confused a (more content not included)... Normal [facility] No Panel Informationon 01-02 BLANK _ [facility] Implant Date 11/07/2023 [facility] CHECKon AV Delay Adaptive Paced Minimum (ms) 200 ms [facility] AV Delay Adaptive Sensed Minimum (ms) 170 ms [facility] AV Delay Paced (ms) 100 ms [facility] AV Delay Sensed (ms) 85 ms [facility] Chema RA Pacing Amplitude (volts) 2.0 V [facility] Chema RA Pacing Polarity BI [facility] Hcema RA Pacing Pulse Width (ms) 0.4 ms [facility] Chema RA Sensing Amplitude (mvolts) 0.25 mV [facility] Chema RA Sensing Polarity BI [facility] Chema RV Pacing Amplitude (volts) 2.5 V [facility] Chema RV Pacing Polarity BI [facility] Chema RV Pacing Pulse Width (ms) 0.4 ms [facility] Chema RV Sensing Amplitude (mvolts) 1.5 mV [facility] Chema RV Sensing Polarity BI [facility] Lead1 Mfg [facility] Lead2 Mfg [facility] Location RA [facility] Location RV [facility] Lower Rate (bpm) 60 {beats}/min [facility] Max Sensor Rate (bmp) 130 {beats}/min [facility] Model L311 ACCOLADE MRI [facility] Model 7841 Ingevity+IS-1 [facility] Model 7842 Ingevity+IS-1 [facility] Pacemaker Dependent? YES [facility] Pacing Mode DDDR [facility] PM-Device Mfg BSX [facility] PM-Percent Pacing (A) 0 % [facility] PM-Percent Pacing (V) 100 % [facility] RA Bipolar Impedance ohms 523 ohm [facility] Rhythm CHB, isolated R wave @ VVI 40 [facility] RV Bipolar Impedance ohms 740 ohm [facility] Serial Number [id number] [facility] Serial Number [id number] [facility] Serial Number [id number] [facility] Thresh RA Capture Amplitude (volts) 0.5 V [facility] Thresh RA Capture Duration (ms) 0.4 ms [facility] Thresh RV Capture Amplitude (volts) 0.8 V [facility] Thresh RV Capture Duration (ms) 0.4 ms [facility] Tracking Rate (bpm) 130 {beats}/min [facility] 01/03/2024 Formattin g of this note might be different from the original. PPM check, dual lead system with programming. ID x2. Here for 6 week f/u PM evaluation. Pt anxious for today's check. Left chest incision/pocket without signs of infection. 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 Interrogation shows no ventricular high rates and 1 mode switch episodes. ATR episode approx 4-5 sec in duration per EGM. PMT noted, EGM shows tracking of atrial rate. Recommended replacement time is 8 yrs. Lead impedances, atrial sensing and pacing thresholds stable. Threshold outputs adjusted for adequate safety margins. Counters cleared. Next device check scheduled for patient, questions answered. Ana Dalal RN NOTE TO PROVIDERS: CARD Flowsheets contain detailed device programming and testing data. Paceart/Interrogation PDF can be found under CARDIAC DATA AND REPORT, Scanned Documents section. [facility] XR Chest PA and Lateralon IMPRESSION: No acute radiographic abnormality. Adjuster Electrical Contacts: PSCB Transcribe Date/Time: Dec 13 2023 3:04P Dictated by : JUAN ESPINOZA MD This examination was interpreted and the report reviewed and electronically signed by: JUAN ESPINOZA MD on Dec 13 2023 3:05PM [facility] DIVISION OF RADIOLOGY * * *Final Report* * * DATE OF EXAM: Dec 11 2023 4:52PM WOX [id number] - XR CHEST 2V FRONTAL/LAT / PROCEDURE REASON: Lung nodule seen on imaging study * * * * Physician Interpretation * * * * EXAMINATION: CHEST RADIOGRAPH (2 VIEW FRONTAL & LATERAL) CLINICAL HISTORY: Lung nodule seen on imaging study MQ: XC2_6 EXAM DATE/TIME: 12/11/2023 4:52 PM COMPARISON: 11/28/2023 and 11/08/2023 RESULT: Lines, tubes, and devices: Left cardiac pacer and leads is unchanged Lungs and pleura: No consolidation. No lung mass. No pleural effusion. No pneumothorax. Cardiomediastinal silhouette: Normal cardiomediastinal silhouette. Bones and soft tissues: Unremarkable. DIVISION OF RADIOLOGY Provider, [facility] - 12/13/2023 * * *Final Report* * * DATE OF EXAM: Dec 11 2023 4:52PM WOX 5291 - XR CHEST 2V FRONTAL/LAT / PROCEDURE REASON: Lung nodule seen on imaging study * * * * Physician Interpretation * * * * EXAMINATION: CHEST RADIOGRAPH (2 VIEW FRONTAL & LATERAL) CLINICAL HISTORY: Lung nodule seen on imaging study MQ: XC2_6 EXAM DATE/TIME: 12/11/2023 4:52 PM COMPARISON: 11/28/2023 and 11/08/2023 RESULT: Lines, tubes, and devices: Left cardiac pacer and leads is unchanged Lungs and pleura: No consolidation. No lung mass. No pleural effusion. No pneumothorax. Cardiomediastinal silhouette: Normal cardiomediastinal silhouette. Bones and soft tissues: Unremarkable. IMPRESSION IMPRESSION: No acute radiographic abnormality. Adjuster Electrical Contacts: PSCB Transcribe Date/Time: Dec 13 2023 3:04P Dictated by : JUAN ESPINOZA MD This examination was interpreted and the report reviewed and electronically signed by: JUAN ESPINOZA MD on Dec 13 2023 3:05PM EST [facility] XR Chest PA and LateralOrder ed By: [facility] Provider on 12-13-2023 [facility] CNOVon 12-11-2023 CNOV Office Visit (INTMWS ) ----- ANGELICA TORIBIO ([id number]) 1950 F Date Time Provider Department 12/11/23 2:20 PM CARMEN JOHNSON INTMWS During your visit today, we recorded the following information about you: Temperature Pulse Respiration Blood pressure 97.5 degrees 101/minute 18/minute 138/62 Weight 59.8 kg Carmen Johnson MD 12/17/2023 11:34 PM Signed This note was created using NoteWriter. Subjective Angelica Toribio is a 73 year old female. Patient presents with: ED Follow-up: [place] [facility] follow up 11/27 then transferred to [facility] SUBJECTIVE: Angelica Toribio is a 73 year old year old lady here today for November ED follow up appointment for review of medical conditions. Boyfriend present Reviewed that blood sugar was low from taking med and not eating as much and was walking more. Glimepiride was stopped. Waster pill also stopped. eGFR was down to 37. Has improved since. Pacemaker was placed in October. Sugars without signs of being high. Got new glucometer. Figuring out how to make it work. BP at home is doing well. Left leg and foot swelling lately. Noted that was not drinking enough water Reviewed May CXR--need follow up CXR on nodule. Has follow up with retinal specialist for moderate NPDR with macular edema OU and cataract OU. Getting monthly eye injections. Told to get new glasses. Was told no driving before due to vision issues in the past PAST MEDICAL HISTORY Diagnosis Date Anxiety state, unspecified Displacement of lumbar intervertebral disc without myelopathy DM type 2 (diabetes mellitus, type 2) (HCC) Edema Other malaise and fatigue Unspecified essential hypertension Current Outpatient Medications Medication Sig Lancets Test blood sugar(s) 2 times daily. Dx: Other DM Code E11.22 Insulin: No blood sugar diagnostic (BLOOD GLUCOSE TEST) test strip Test blood sugar(s) once daily as directed. Dx: E11.22. Insulin: no amLODIPine (NORVASC) 10 mg tablet Take 1 tablet by mouth once daily. acetaminophen (TYLENOL) 500 mg tablet Take 2 tablets by mouth every 8 hours as needed for pain. hydrALAZINE (APRESOLINE) 25 mg tablet Take 1 tablet by mouth three times a day. Cholecalciferol, Vitamin D3, 25 mcg (1,000 unit) cap Take 1 capsule by mouth once daily. Blood Pressure Monitor 1 Each once daily. biotin 5 mg tab Take 5 mg by mouth once daily. (Patient not taking: Reported on 12/11/2023) No current facility-administered medications for this visit. Review of Systems Objective BP 160/72 Pulse 101 Temp 36.4 ?C (97.5 ?F) Resp 18 Wt 59.8 kg (131 lb 14.4 oz) SpO2 100% BMI 25.76 kg/m? Last 5 Encounter Wt Readings: Date: Wt: 12/11/2023 59.8 kg (131 lb 14.4 oz) 11/28/2023 59.9 kg (132 lb) 11/20/2023 66.7 kg (147 lb) 11/05/2023 63.8 kg (140 lb 10.5 oz) 11/05/2023 68 kg (150 lb) No waist measurement recorded Estimated body mass index is 25.76 kg/m? as calculated from the following: Height as of 11/05/23: 152.4 cm (5'). Weight as of this encounter: 59.8 kg (131 lb 14.4 oz). Last 5 Encounter BP Readings: Date: BP: 12/11/2023 160/72 11/28/2023 147/76 11/23/2023 142/76 11/20/2023 168/64 11/07/2023 151/76 Physical Exam Constitutional: Appearance: Normal appearance. HENT: Head: Normocephalic. Eyes: Conjunctiva/sclera: Conjunctivae normal. Cardiovascular: Rate and Rhythm: Normal rate and regular rhythm. Heart sounds: Murmur heard. Systolic murmur is present with a grade of 3/6. Pulmonary: Effort: Pulmonary effort is normal. Breath sounds: Normal breath sounds. Musculoskeletal: Right lower leg: Edema present. Left lower leg: Edema (Left more than right swelling in foot; both leg swelling) present. Skin: General: Skin is warm and dry. Comments: Scar from pacemaker on left upper chest has healed well Neurological: General: No focal deficit present. Mental Status: She is alert and oriented to person, place, and time. Psychiatric: Mood and Affect: Mood normal. Behavior: Behavior normal. Thought Content: Thought content normal. Judgment: Judgment normal. Hemoglobin A1C (%) Date Value 11/08/2023 6.3 11/05/2023 6.2 06/28/2022 6.1 02/10/2022 6.1 10/08/2021 6.6 06/14/2021 7.1 02/01/2021 6.8 08/18/2020 7.0 06/09/2020 7.2 03/05/2020 8.1 Assessment and Plan Encounter Diagnosis ICD-10-CM 1. Type 2 diabetes mellitus with stage 3a chronic kidney disease, without long-term current use of insulin ([facility]) E11.22 N18.31 Will if improves with staying hydrrated. Monitor sugars. Adjust meds if needed. Suspect dehydration is the issue 2. Hypoglycemia E16.2 COMPREHENSIVE METABOLIC PANEL No further episodes since stopped glimeperide and eating better 3. Primary Hypertension I10 COMPREHENSIVE METABOLIC PANEL COMPLETE BLOOD COUNT BP better on recheck. Was higher at home with nurse checks. Stay on same (more content not included)... Normal [facility] XR CHEST 2V FRONTAL/LATon XR CHEST 2V FRONTAL/LAT * * *Final Report* * * DATE OF EXAM: Dec 11 2023 4:52PM WOX 5291 - XR CHEST 2V FRONTAL/LAT / PROCEDURE REASON: Lung nodule seen on imaging study * * * * Physician Interpretation * * * * EXAMINATION: CHEST RADIOGRAPH (2 VIEW FRONTAL and LATERAL) CLINICAL HISTORY: Lung nodule seen on imaging study MQ: XC2_6 EXAM DATE/TIME: 12/11/2023 4:52 PM COMPARISON: 11/28/2023 and 11/08/2023 RESULT: Lines, tubes, and devices: Left cardiac pacer and leads is unchanged Lungs and pleura: No consolidation. No lung mass. No pleural effusion. No pneumothorax. Cardiomediastinal silhouette: Normal cardiomediastinal silhouette. Bones and soft tissues: Unremarkable. IMPRESSION: No acute radiographic abnormality. Adjuster Electrical Contacts: REESE Transcribe Date/Time: Dec 13 2023 3:04P Dictated by : JUAN ESPINOZA MD This examination was interpreted and the report reviewed and electronically signed by: JUAN ESPINOZA MD on Dec 13 2023 3:05PM EST [id number] Normal [facility] XR Chest PA and Lateralon Radiology Study observation (narrative) [facility] 102on 12-07-2023 102 HNO ID: [id number] Author: MARITA SEWELL HDA Service: ? Author Type: ? Type: 102 Filed: 12/07/2023 09:22 Note Text: CODE STATUS: Full Code Normal [facility] ----- ANGELICA TORIBIO ([id number]) 1950 F Date Time Provider Department 12/06/23 ZOIE HAYES During your visit today, we recorded the following information about you: Allergies As of Date: 12/06/2023 Noted Allergy Reaction POISON JODI 12/17/2013 14 - Other: See Comments Comments: Poison Jodi rash ZOCOR (SIMVASTATIN) 03/21/2019 17 - Myalgia Comments: Muscle aches ACTOS (PIOGLITAZONE HCL) 07/19/2005 6 - Diarrhea ALTACE (RAMIPRIL) 07/19/2005 3 - Cough ARTHROTEC 50 (DICLOFENAC-MISOPROS*12/2005 8 - GI Upset AUGMENTIN (AMOXICILLIN-POT CLAVUL*02/26/2005 8 - GI Upset CELEBREX (CELECOXIB) 07/19/2005 CODEINE 02/26/2005 11 - Vomiting CRESTOR (ROSUVASTATIN CALCIUM) 07/19/2005 17 - Myalgia Comments: Muscle aches, tried two different times at low doses and had muscle cramping in legs DEMEROL (MEPERIDINE HCL) 02/26/2005 8 - GI Upset FELDENE (PIROXICAM) 07/19/2005 8 - GI Upset GLUCOPHAGE (METFORMIN HCL) 08/31/2013 8 - GI Upset Comments: diarrhea LASIX (FUROSEMIDE) 03/30/2005 Comments: dizzy LIPITOR (ATORVASTATIN CALCIUM) 07/19/2005 17 - Myalgia Comments: Muscle aches PRAVASTATIN 01/03/2012 14 - Other: See Comments Comments: muscle aches calf SULFA (SULFONAMIDE ANTIBIOTICS) 04/22/2005 8 - GI Upset TRICOR (FENOFIBRATE MICRONIZED) 07/19/2005 ZETIA (EZETIMIBE) 07/19/2005 6 - Diarrhea Date Reviewed: 11/28/2023 Reviewed by: Angelica Dye RN - Fully Assessed Reason for Visit: Home Care [4073] Cmt: FYI; Pt missed visit today. Not home Prescriptions as of 12/06/2023 - Lancets Test blood sugar(s) 2 times daily. Dx: Other DM Code E11.22 Insulin: No - blood sugar diagnostic (BLOOD GLUCOSE TEST) test strip Test blood sugar(s) once daily as directed. Dx: E11.22. Insulin: no - biotin 5 mg tab Take 5 mg by mouth once daily. - amLODIPine (NORVASC) 10 mg tablet Take 1 tablet by mouth once daily. - acetaminophen (TYLENOL) 500 mg tablet Take 2 tablets by mouth every 8 hours as needed for pain. - hydrALAZINE (APRESOLINE) 25 mg tablet Take 1 tablet by mouth three times a day. - Cholecalciferol, Vitamin D3, 25 mcg (1,000 unit) cap Take 1 capsule by mouth once daily. - Blood Pressure Monitor 1 Each once daily. Meds Comments as of 05/02/2018: Tylenol Problem List As Of Date 12/06/2023 Noted Resolved LUMBAGO [M54.50] 03/30/2005 SCIATICA [M54.30] 03/30/2005 Generalized osteoarthritis of multiple sites [M*03/30/2005 Cardiovascular disease [I25.10] 04/22/2005 Chest pain, unspecified [R07.9] 04/22/2005 08/19/2013 MIXED HYPERLIPIDEMIA [E78.2] 04/22/2005 Hypertensive kidney disease with stage 3a chron*04/22/2005 EDEMA [R60.9] 11/08/2005 Type I (juvenile type) diabetes mellitus withou* 01/03/2012 MALAISE AND FATIGUE NEC [R53.81, R53.83] ANXIETY STATE NOS [F41.1] LUMBAR DISC DISPLACEMENT [M51.26] ARTHROPATHY NOS-L/LEG [M17.10] 01/19/2007 Bursitis of shoulder, left [M75.52] 08/19/2010 Vitamin D deficiency [E55.9] 10/29/2012 Cellulitis of buttock [L03.317] 12/07/2012 03/09/2020 Anxiety [F41.9] 01/26/2013 External hemorrhoids [K64.4] 09/01/2013 Stage 3a chronic kidney disease (HCC) [N18.31] 12/05/2013 PTSD (post-traumatic stress disorder) [F43.10] 12/26/2014 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] 12/26/2014 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] 12/26/2014 Reactive 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] 12/30/2014 Type 2 diabetes mellitus with stage 3a chronic *02/11/2016 Cutaneous horn [L85.8] 02/11/2016 Uncontrolled type 2 diabetes mellitus without c*07/14/2016 10/05/2018 Heart murmur, systolic [R01.1] 03/21/2019 Severe nonproliferative diabetic retinopathy of*10/12/2021 Exudative age-related macular degeneration of r*11/07/2022 Complete heart block (HCC) [I44.2] 11/05/2023 Sinoatrial node dysfunction (HCC) [I49.5] 11/08/2023 Presence of permanent cardiac pacemaker [Z95.0] 11/09/2023 Hypertensive urgency [I16.0] 11/09/2023 11/15/2023 UTI due to Klebsiella species [N39.0, B96.89] 11/09/2023 11/15/2023 JEREMIE (acute kidney injury) (HCC) [N17.9] 11/09/2023 11/15/2023 Other chest pain [R07.89] 11/09/2023 11/15/2023 Malnutrition of mild degree (HCC) [E44.1] 11/13/2023 Delirium [R41.0] 11/14/2023 11/15/2023 Encounter Status:Closed by ZOIE HAYES on 12/06/23 [facility] ANGELICA TORIBIO ([id number]) 1950 F Date Time Provider Department 11/29/23 CARMEN JOHNSON INTMWS During your visit today, we recorded the following information about you: Letty Carlos, DEVONTE 11/29/2023 9:[address] Johnson encounter note from 11/27. Called and spoke with pt to set up ER f/u appt. Pt booked for Thursday 12/07. Pt refused to see anyone but Dr. Johnson. Pt asking for confirmation on what med she is to stop taking. Notified not to take the Glimepiride (Amaryl) anymore. Pt sounding very sluggish on the phone. Asked if she has the ability to check her blood sugars. Pt states she does. Asked for pt to do one while speaking with nurse on the phone. She refused as she states she is in the middle of something. Nurse concerned about pt and asked if she could check it please. Pt states she can't as she ran out of glucose strips yesterday. Explained to pt that we can send in a new script for her glucose testing strip. Asked pt to monitor her blood sugars over the next several days to make sure she isn't still dropping low. Pt encouraged to eat protein and balanced diet. Carmen Johnson MD 11/29/2023 10:03 AM Signed Below noted The following approved medication requests have been transmitted electronically. Requested Prescriptions Signed Prescriptions Disp Refills blood sugar diagnostic (BLOOD GLUCOSE TEST) test strip 50 Strip 11 Sig: Test blood sugar(s) once daily as directed. Dx: E11.22. Insulin: no Authorizing Provider: CARMEN JOHNSON MD Allergies As of Date: 11/29/2023 Noted Allergy Reaction POISON JODI 12/17/2013 14 - Other: See Comments Comments: Poison Jodi rash ZOCOR (SIMVASTATIN) 03/21/2019 17 - Myalgia Comments: Muscle aches ACTOS (PIOGLITAZONE HCL) 07/19/2005 6 - Diarrhea ALTACE (RAMIPRIL) 07/19/2005 3 - Cough ARTHROTEC 50 (DICLOFENAC-MISOPROS*12/2005 8 - GI Upset AUGMENTIN (AMOXICILLIN-POT CLAVUL*02/26/2005 8 - GI Upset CELEBREX (CELECOXIB) 07/19/2005 CODEINE 02/26/2005 11 - Vomiting CRESTOR (ROSUVASTATIN CALCIUM) 07/19/2005 17 - Myalgia Comments: Muscle aches, tried two different times at low doses and had muscle cramping in legs DEMEROL (MEPERIDINE HCL) 02/26/2005 8 - GI Upset FELDENE (PIROXICAM) 07/19/2005 8 - GI Upset GLUCOPHAGE (METFORMIN HCL) 08/31/2013 8 - GI Upset Comments: diarrhea LASIX (FUROSEMIDE) 03/30/2005 Comments: dizzy LIPITOR (ATORVASTATIN CALCIUM) 07/19/2005 17 - Myalgia Comments: Muscle aches PRAVASTATIN 01/03/2012 14 - Other: See Comments Comments: muscle aches calf SULFA (SULFONAMIDE ANTIBIOTICS) 04/22/2005 8 - GI Upset TRICOR (FENOFIBRATE MICRONIZED) 07/19/2005 ZETIA (EZETIMIBE) 07/19/2005 6 - Diarrhea Date Reviewed: 11/28/2023 Reviewed by: Angelica Dye RN - Fully Assessed Reason for Visit: Appointment [186] Visit Diagnosis:Type 2 diabetes mellitus with chronic kidney disease, without long-term current use of insulin, unspecified CKD stage (HCC) [E11.22] Order(s):blood sugar diagnostic (BLOOD GLUCOSE TEST) test stripTest blood sugar(s) once daily as directed. Dx: E11.22. Insulin: noDisp: 50 StripRfl: 11 Prescriptions as of 11/29/2023 - blood sugar diagnostic (BLOOD GLUCOSE TEST) test strip Test blood sugar(s) once daily as directed. Dx: E11.22. Insulin: no - biotin 5 mg tab Take 5 mg by mouth once daily. - amLODIPine (NORVASC) 10 mg tablet Take 1 tablet by mouth once daily. - acetaminophen (TYLENOL) 500 mg tablet Take 2 tablets by mouth every 8 hours as needed for pain. - hydrALAZINE (APRESOLINE) 25 mg tablet Take 1 tablet by mouth three times a day. - Cholecalciferol, Vitamin D3, 25 mcg (1,000 unit) cap Take 1 capsule by mouth once daily. - Blood Pressure Monitor 1 Each once daily. Meds Comments as of 05/02/2018: Tylenol Problem List As Of Date 11/29/2023 Noted Resolved LUMBAGO [M54.50] 03/30/2005 SCIATICA [M54.30] 03/30/2005 Generalized osteoarthritis of multiple sites [M*03/30/2005 Cardiovascular disease [I25.10] 04/22/2005 Chest pain, unspecified [R07.9] 04/22/2005 08/19/2013 MIXED HYPERLIPIDEMIA [E78.2] 04/22/2005 Hypertensive kidney disease with stage 3a chron*04/22/2005 EDEMA [R60.9] 11/08/2005 Type I (juvenile type) diabetes mellitus withou* 01/03/2012 MALAISE AND FATIGUE NEC [R53.81, R53.83] ANXIETY STATE NOS [F41.1] LUMBAR DISC DISPLACEMENT [M51.26] ARTHROPATHY NOS-L/LEG [M17.10] 01/19/2007 Bursitis of shoulder, left [M75.52] 08/19/2010 Vitamin D deficiency [E55.9] 10/29/2012 Cellulitis of buttock [L03.317] 12/07/2012 03/09/2020 Anxiety [F41.9] 01/26/2013 External hemorrhoids [K64.4] 09/01/2013 Stage 3a chronic kidney disease (HCC) [N18.31] 12/05/2013 PTSD (post-traumatic stress disorder) [F43.10] 12/26/2014 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 Normal [facility] Bacteria Ur Culton Bacteria identified Cx Nom (U) CULTURE, URINE: 50,000-<100,000 CFU/ml Normal Urogenital Francy ORGANISM ID: 1 <10,000 CFU/ml Gram negative bacilli Insignificant colony count. No further workup. Normal [facility] Comment on above: Performed By: #### 6 30-4 ####[facility] [id number] [place] [address] [place] CBC panel Auto (Bld)on 11-27 Erythrocyte distribution width (RBC) [Ratio] 13.0 % Normal 11.5-15.0 [facility] Comment on above: Order Comment: Speci men Type: BLOOD SPECIMEN Ordering Facility: [facility] Address: [address] [place] [address] Performed By: #### 5 8410-2 #### [facility] CLIA [id number] [address] [place] [address] STATES OF [facility] Hematocrit (Bld) [Volume fraction] 34.4 % Low 36.0-46.0 [facility] Comment on above: Order Comment: Speci men Type: BLOOD SPECIMEN Ordering Facility: [facility] Address: [address] [place] [address] Performed By: #### 5 8410-2 #### [facility] CLIA [id number] [address] [place] [address] [place] [facility] Hemoglobin (Bld) [Mass/Vol] 11.4 g/dL Low 11.5-15.5 [facility] Comment on above: Order Comment: Speci men Type: BLOOD SPECIMEN Ordering Facility: [facility] Address: [address] [place] [address] Performed By: #### 5 8410-2 #### [facility] CLIA [id number] [address] [place], [place] [address] [place] [address] OF [facility] MCH (RBC) [Entitic mass] 31.1 pg Normal 26.0-34.0 [facility] Comment on above: Order Comment: Speci men Type: BLOOD SPECIMEN Ordering Facility: [facility] Address: [address] [place] [address] Performed By: #### 5 8410-2 #### [facility] CLIA [id number] [address] STATES OF [place] MCHC (RBC) [Mass/Vol] 33.1 g/dL Normal 30.5-36.0 [facility] Comment on above: Order Comment: Speci men Type: BLOOD SPECIMEN Ordering Facility: [facility] Address: [address] [place] [address] Performed By: #### 5 8410-2 #### [facility] CLIA [id number] [address] [place] [address] [place] MCV (RBC) [Entitic vol] 93.7 fL Normal 80.0-100.0 [facility] Comment on above: Order Comment: Speci men Type: BLOOD SPECIMEN Ordering Facility: [facility] Address: [address] [place] [address] Performed By: #### 5 8410-2 #### [facility] CLIA [id number] [address] [place] [address] OF [place] Platelet mean volume (Bld) [Entitic vol] 10.1 fL Normal 9.0-12.7 [facility] Comment on above: Order Comment: Speci men Type: BLOOD SPECIMEN Ordering Facility: [facility] Address: [address] [place] [address] Performed By: #### 5 8410-2 #### [facility] CLIA [id number] [address] [place] [address] [facility] Platelets (Bld) [#/Vol] 204 10*3/uL Normal 150-400 [facility] Comment on above: Order Comment: Speci men Type: BLOOD SPECIMEN Ordering Facility: [facility] Address: [address] [place] [address] Performed By: #### 5 8410-2 #### [facility] CLIA [id number] [address] RBC (Bld) [#/Vol] 3.67 10*6/uL Low 3.90-5.20 [facility] Comment on above: Order Comment: Speci men Type: BLOOD SPECIMEN Ordering Facility: [facility] Address: [address] [place] [address] Performed By: #### 5 8410-2 #### [facility] CLIA [id number] [address] WBC (Bld) [#/Vol] 6.56 10*3/uL Normal 3.70-11.00 [facility] Comment on above: Order Comment: Speci men Type: BLOOD SPECIMEN Ordering Facility: [facility] Address: [address] [place] [address] Performed By: #### 5 8410-2 #### [facility] CLIA [id number] [address] [place], [place] [address] [place] [address] CNPAlexa 11-28-2023 CNPN Telephone (INTMWS) ----- ANGELICA TORIBIO ([id number]) 1950 F Date Time Provider Department 11/28/23 CARMEN JOHNSON INTMWS During your visit today, we recorded the following information about you: Carmen Johnson MD 11/28/2023 12:50 PM Signed Discussed with ER doctor, Dr. Espinosa. She needs an appointment for follow up (not seen since last year and needs ER follow up to decide on whether needs medication to replace Amaryl/glimepiride) Patient hypoglycemic and unresponsive at home. Treated by squad and responsive after glucose given. Was dieting (1 meal a day) to lose weight. Was still taking Amaryl 4mg daily. They will observe her longer for serial troponin-Is, as well as glucose. Up to 216 after more food. Reviewed that patient missed September appointment with [facility]. Canceled other appointments last year. Last seen August 2022. Took Amaryl off med list. Would use other med if needed for DM control. She has home health coming out to check on her. Noted that patient had pacemaker placed 11/07/23. Hemoglobin A1C (%) Date Value 11/08/2023 6.3 11/05/2023 6.2 06/28/2022 6.1 02/10/2022 6.1 10/08/2021 6.6 06/14/2021 7.1 02/01/2021 6.8 08/18/2020 7.0 06/09/2020 7.2 03/05/2020 8.1 Letty Carlos RN 11/29/2023 10:01 AM Signed Pt set up for ER f/u visit on 12/07 Allergies As of Date: 11/28/2023 Noted Allergy Reaction POISON JODI 12/17/2013 14 - Other: See Comments Comments: Poison Jodi rash ZOCOR (SIMVASTATIN) 03/21/2019 17 - Myalgia Comments: Muscle aches ACTOS (PIOGLITAZONE HCL) 07/19/2005 6 - Diarrhea ALTACE (RAMIPRIL) 07/19/2005 3 - Cough ARTHROTEC 50 (DICLOFENAC-MISOPROS*0212/2005 8 - GI Upset AUGMENTIN (AMOXICILLIN-POT CLAVUL*02/26/2005 8 - GI Upset CELEBREX (CELECOXIB) 07/19/2005 CODEINE 02/26/2005 11 - Vomiting CRESTOR (ROSUVASTATIN CALCIUM) 07/19/2005 17 - Myalgia Comments: Muscle aches, tried two different times at low doses and had muscle cramping in legs DEMEROL (MEPERIDINE HCL) 02/26/2005 8 - GI Upset FELDENE (PIROXICAM) 07/19/2005 8 - GI Upset GLUCOPHAGE (METFORMIN HCL) 08/31/2013 8 - GI Upset Comments: diarrhea LASIX (FUROSEMIDE) 03/30/2005 Comments: dizzy LIPITOR (ATORVASTATIN CALCIUM) 07/19/2005 17 - Myalgia Comments: Muscle aches PRAVASTATIN 01/03/2012 14 - Other: See Comments Comments: muscle aches calf SULFA (SULFONAMIDE ANTIBIOTICS) 04/22/2005 8 - GI Upset TRICOR (FENOFIBRATE MICRONIZED) 07/19/2005 ZETIA (EZETIMIBE) 07/19/2005 6 - Diarrhea Date Reviewed: 11/28/2023 Reviewed by: Angelica Dye RN - Fully Assessed Reason for Visit: Call From ER [[id number]] Cmt: Dr. Espinosa Prescriptions as of 11/29/2023 - biotin 5 mg tab Take 5 mg by mouth once daily. - amLODIPine (NORVASC) 10 mg tablet Take 1 tablet by mouth once daily. - acetaminophen (TYLENOL) 500 mg tablet Take 2 tablets by mouth every 8 hours as needed for pain. - hydrALAZINE (APRESOLINE) 25 mg tablet Take 1 tablet by mouth three times a day. - Cholecalciferol, Vitamin D3, 25 mcg (1,000 unit) cap Take 1 capsule by mouth once daily. - Blood Pressure Monitor 1 Each once daily. Meds Comments as of 05/02/2018: Tylenol Medication notes this encounter GLIMEPIRIDE 4 MG TABLET >> Carmen Johnson MD 11/28/2023 12:42 PM Hypoglycemic episode; seen in ER Problem List As Of Date 11/28/2023 Noted Resolved LUMBAGO [M54.50] 03/30/2005 SCIATICA [M54.30] 03/30/2005 Generalized osteoarthritis of multiple sites [M*03/30/2005 Cardiovascular disease [I25.10] 04/22/2005 Chest pain, unspecified [R07.9] 04/22/2005 08/19/2013 MIXED HYPERLIPIDEMIA [E78.2] 04/22/2005 Hypertensive kidney disease with stage 3a chron*04/22/2005 EDEMA [R60.9] 11/08/2005 Type I (juvenile type) diabetes mellitus withou* 01/03/2012 MALAISE AND FATIGUE NEC [R53.81, R53.83] ANXIETY STATE NOS [F41.1] LUMBAR DISC DISPLACEMENT [M51.26] ARTHROPATHY NOS-L/LEG [M17.10] 01/19/2007 Bursitis of shoulder, left [M75.52] 08/19/2010 Vitamin D deficiency [E55.9] 10/29/2012 Cellulitis of buttock [L03.317] 12/07/2012 03/09/2020 Anxiety [F41.9] 01/26/2013 External hemorrhoids [K64.4] 09/01/2013 Stage 3a chronic kidney disease (HCC) [N18.31] 12/05/2013 PTSD (post-traumatic stress disorder) [F43.10] 12/26/2014 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 Normal [facility] Comprehensive metabolic 2000 panelon 11-28-2023 Albumin [Mass/Vol] 4.2 g/dL Normal 3.9-4.9 [facility] Comment on above: Order Comment: Speci men Type: BLOOD SPECIMEN Ordering Facility: [facility] Address: [address] [place] [address] Performed By: #### 2 4323-8 #### [facility] CLIA [id number] [address] [place] [address] [place] ALP [Catalytic activity/Vol] 80 U/L Normal 34-123 [facility] Comment on above: Order Comment: Speci men Type: BLOOD SPECIMEN Ordering Facility: [facility] Address: [address] [place] [address] Performed By: #### 2 4323-8 #### [facility] CLIA [id number] [address] [place] [address] [place] ALT With P-5'-P [Catalytic activity/Vol] 10 U/L Normal 7-38 [facility] Comment on above: Order Comment: Speci men Type: BLOOD SPECIMEN Ordering Facility: [facility] Address: [address] [place] [address] Performed By: #### 2 4323-8 #### [facility] CLIA [id number] [address] [place] [address] [place] Anion gap [Moles/Vol] 13 mmol/L Normal 8-15 [facility] Comment on above: Order Comment: Speci men Type: BLOOD SPECIMEN Ordering Facility[facility] Address: [address] [place] [address] Performed By: #### 2 4323-8 #### [facility] CLIA [id number] [address] [place] [address] [place] AST With P-5'-P [Catalytic activity/Vol] 24 U/L Normal 13-35 [facility] Comment on above: Order Comment: Speci men Type: BLOOD SPECIMEN Ordering Facility[facility] Address: [address] [place] [address] Performed By: #### 2 4323-8 #### [facility] CLIA [id number] [address] [place] [address] [place] Bilirubin [Mass/Vol] 1.0 mg/dL Normal 0.2-1.3 [facility] Comment on above: Order Comment: Speci men Type: BLOOD SPECIMEN Ordering Facility: [facility] Address: [address] [place] [address] Performed By: #### 2 4323-8 #### [facility] CLIA [id number] [address] [place] [address] [place] Calcium [Mass/Vol] 9.6 mg/dL Normal 8.5-10.2 [facility] Comment on above: Order Comment: Speci men Type: BLOOD SPECIMEN Ordering Facility: [facility] Address: [address] [place] [address] Performed By: #### 2 4323-8 #### [facility] CLIA [id number] [address] [place] [address] [place] Chloride [Moles/Vol] 107 mmol/L Normal 98-107 [facility] Comment on above: Order Comment: Speci men Type: BLOOD SPECIMEN Ordering Facility: [facility] Address: [address] [place] [address] Performed By: #### 2 4323-8 #### [facility] CLIA [id number] [address] [place] [address] [place] CO2 [Moles/Vol] 22 mmol/L Normal 22-30 [facility] Comment on above: Order Comment: Speci men Type: BLOOD SPECIMEN Ordering Facility: [facility] Address: [address] [place] [address] Performed By: #### 2 4323-8 #### [facility] CLIA [id number] [address] [place] [address] [place] Creatinine [Mass/Vol] 1.05 mg/dL High 0.58-0.96 [facility] Comment on above: Order Comment: Speci men Type: BLOOD SPECIMEN Ordering Facility[facility] Address: [address] [place] [address] Performed By: #### 2 4323-8 #### [facility] CLIA [id number] [address] [place] [address] [place] Creatinine and Glomerular filtration rate.predicted panel (S/P/Bld) 57 mL/min/1.73m??? Low >=60 [facility] Comment on above: Order Comment: Moise lewis Type: BLOOD SPECIMEN Ordering Facility: [facility] Address: [address] [place] [address] Result Comment: Coral mated Glomerular Filtration Rate (eGFR) is calculated using the 2020 CKD-EPI creatinine equation. This equation utilizes serum creatinine, sex, and age as parameters. The creatinine assay has traceable calibration to isotope dilution-mass spectrometry. Refer to KDIGO guidelines for clinical interpretation. In patients with unstable renal function, e.g. those with acute kidney injury, the eGFR may not accurately reflect actual GFR. Performed By: #### 2 4323-8 #### [facility] CLIA [id number] [address] [place], [place] [id number] [place] Glucose [Mass/Vol] 108 mg/dL High 74-99 [facility] Comment on above: Order Comment: Moise lewis Type: BLOOD SPECIMEN Ordering Facility[facility] Address: [address] [place] [address] Result Comment: The [place] Diabetes [employer] (ADA) provides guidance for cutoff values for fasting glucose and random glucose. The ADA defines fasting as no caloric intake for at least 8 hours. Fasting plasma glucose results between 100 to 125 mg/dL indicate increased risk for diabetes (prediabetes). Fasting plasma glucose results greater than or equal to 126 mg/dL meet the criteria for diagnosis of diabetes. In the absence of unequivocal hyperglycemia, results should be confirmed by repeat testing. In a patient with classic symptoms of hyperglycemia or hyperglycemic crisis, random plasma glucose results greater than or equal to 200 mg/dL meet the criteria for diagnosis of diabetes. Reference: Standards of Medical Care in Diabetes 2016, [place] [employer]. Diabetes Care. 2016.39(Suppl 1). Performed By: #### 2 4323-8 #### [facility] CLIA [id number] [address] [place] [address] [place] Potassium [Moles/Vol] 3.9 mmol/L Normal 3.7-5.1 [facility] Comment on above: Order Comment: Moise lewis Type: BLOOD SPECIMEN Ordering Facility[facility] Address: [address] [place] [address] Performed By: #### 2 4323-8 #### [facility] CLIA [id number] [address] [place] [address] [place] Protein [Mass/Vol] 7.2 g/dL Normal 6.3-8.0 [facility] Comment on above: Order Comment: Speci men Type: BLOOD SPECIMEN Ordering Facility[facility] Address: [address] [place] [address] Performed By: #### 2 4323-8 #### [facility] CLIA [id number] [address] [place] [address] [place] Sodium [Moles/Vol] 142 mmol/L Normal 136-144 [facility] Comment on above: Order Comment: Speci men Type: BLOOD SPECIMEN [facility] Facility[facility] Address: [address] [place] [address] Performed By: #### 2 4323-8 #### [facility] CLIA [id number] [address] [place] [address] [place] Urea nitrogen [Mass/Vol] 22 mg/dL High 7-21 [facility] Comment on above: Order Comment: Speci men Type: BLOOD SPECIMEN Order[facility] Facility[facility] Address: [address] [place] [address] Performed By: #### 2 4323-8 #### [facility] CLIA [id number] [address] [place] [address] [place] ECG COMPLETEon 11-28-2023 ECG COMPLETE Ventricular Rate : 9 3 BPM Atrial Rate : 93 BPM P-R Interval : 160 ms QRS Duration : 132 ms Q-T Interval : 426 ms QTC Calculation(Bazett) : 529 ms Calculated P Gorham : 39 degrees Calculated R Gorham : 253 degrees Calculated T Gorham : 48 degrees Atrial-sensed ventricular-paced rhythm ABNORMAL ECG NO PREVIOUS ECGS AVAILABLE Confirmed by MD MONTANO VINAY ([id number]) on 11/28/2023 1:05:49 PM NAME : ANGELICA TORIBIO PID : [id number] : 1950 Gender : Female Race : ORD : [id number] Procedure Date : Nov 28 2023 10:20:56 Edit Date : Nov 28 2023 13:05:50 Diagnosis: Atrial-sensed ventricular-paced rhythm ABNORMAL ECG NO PREVIOUS ECGS AVAILABLE Confirmed by MD MONTANO VINAY ([id number]) on 11/28/2023 1:05:49 PM Test Reason : Diabetes Mellitus Unspecified Location : 191 : [facility] ED Overread By : MD MONTANO VINAY Edited By : MD MONTANO VINAY Referred By : , Acquired by : TREY RICHARDS [facility] ED NOTEon 11-28-2023 ED NOTE HNO ID: [id number] Author: RACHELLE OHARA RN Service: ? Author Type: Registered Nurse Type: ED Notes Filed: 11/28/2023 14:51 Note Text: Dr. Espinosa reviewed D/c instructions with pt who verbalized understanding. Pt's vss and left ER via wheelchair and in stable condition with partner. [facility] ED NOTE HNO ID: [id number] Author: DAVE COX RN Service: Emergency Medicine Author Type: Registered Nurse Type: ED Notes Filed: 11/30/2023 13:57 Note Text: Patient Call Back Information How are you doing ? better Did we appropriately manage your pain? Yes Did you understand your discharge instructions? Yes Did you get your prescriptions filled? Yes Were you able to make a follow-up appointment with your physician? Yes Were you comfortable during your stay here? Yes Did a member of the ER nursing team round on you during your visit? Yes You will receive a patient satisfaction survey in the mail in the nest 2 weeks, please take the time to fill out the survey as your input from your ER visit is very important to us. Yes Can we do anything else to help you? No [facility] ED NOTE HNO ID: [id number] Author: RACHELLE OHARA RN Service: ? Author Type: Registered Nurse Type: ED Notes Filed: 11/28/2023 11:08 Note Text: Pt came to ER via EMS at 0949. Pt's partner reported to this RN that pt had fallen asleep on the couch. Partner tried getting pt off of couch around 0730 and pt fell face first onto carpeted floor. Pt also put R arm out and caught self on R wrist which has full ROM but does appear bruised. Pt's partner tried to get pt off of floor but was not able to. Pt's partner reported that pt was out of it and seemed to just be falling over. Pt's partner called neighbor who called EMS. Pt was suspected to be on the ground for a couple hours. Upon this RN's assessment there were old EKG leads attached to pt that were not from EMS. When this RN asked when pt was last hospitalized pt could not recall but said she recently had a pace maker placed. Pt's partner reported that pt got our of hospital November 14. This RN asked pt if she feels safe at home, if she feels as though she's properly cared for and if she needs more assistance. Pt got defensive and said she did not need help and that they can take care of themselves. Pt said she just hasn't had time to take those stickers off since her last hospitalization 13 days ago. This RN educated pt on the importance of taking care of herself and her health and that if she needs assistance there are things that we can do to assist her and pt was uninterested at this time. Dr. Espinosa notified. Normal [facility] ED NOTE HNO ID: [id number] Author: RACHELLE OHARA RN Service: ? Author Type: Registered Nurse Type: ED Notes Filed: 11/28/2023 11:14 Note Text: Pt's BS 88. Pt eating a peanut butter apple sandwich and juice. Dr. Espinosa notified Normal [facility] ED NOTE HNO ID: [id number] Author: ANGELICA DYE RN Service: ? Author Type: Registered Nurse Type: ED Notes Filed: 11/28/2023 10:01 Note Text: Pt arrives via [facility] sitting upright on cot Awake and alert Denies pain Per EMS and significant other pt passed out and fell onto floor EMS reports blood sugar of 34, state D10 given, with repeat blood sugar of 131 Pt placed on security monitor Normal [facility] ED PROV NOTEon 11-28-2023 ED PROV NOTE HNO ID: [id number] Author: HENOK ESPINOSA MD Service: Emergency Medicine Author Type: Physician Type: ED Provider Notes Filed: 11/29/2023 00:12 Note Text: ED Provider Note Patient Name: Angelica Toribio : 1950 SERVICE DATE: 11/28/23 History Patient presents with: Low Blood Sugar This is a 73-year-old female with a history of diabetes and other comorbidities that presents via EMS for unresponsiveness and hypoglycemia. History taken from EMS as well as patient and her significant other. It is unclear from the patient and significant other whether the patient had woke up this morning and then was found unresponsive but patient remembers feeling normal last night and going to bed normally. She states that she remembers falling asleep on the couch and then waking up with the paramedics. Partner states that he found the patient around 7:30 AM to be passed out on the couch and when he tried to rn procedure her body was limp and she started to fall towards the floor. She he states that she did not get injured did not hit her head but when she was unresponsive he called a neighbor who ended up calling 911. EMS stated that they found her blood sugar at 34 and gave her D10 and she became responsive and a repeat blood sugar was 131. The patient does not remember feeling any symptoms last night and now she denies chest pain, palpitations, shortness of breath, headache, neck pain, focal weakness, fever chills or other complaints currently. She does admit over the past 4 to 5 months she has been eating significantly less and attempt for weight loss. She states she has lost a significant amount of weight doing this but states that she will only eat approximately 1 meal a day at random times. She states that she does not have a large appetite anyway. She has not had any medication changes made and normally takes her Amaryl in the morning and last took it yesterday morning as she did not take any of her medications this morning. No history of syncope or hypoglycemia previously that she remembers. PAST MEDICAL HISTORY Diagnosis Date Anxiety state, unspecified Displacement of lumbar intervertebral disc without myelopathy DM type 2 (diabetes mellitus, type 2) ([facility]) Edema Other malaise and fatigue Unspecified essential hypertension PAST SURGICAL HISTORY Procedure Laterality Date BASIC PACEMAKER DUAL CHAMBER Left 11/07/2023 [employer] dual PPM for CHB; Dr. Orozco at [facility] TOTAL ABDOMINAL HYSTERECT W/WO RMVL TUBE OVARY 06/12/1992 Hysterectomy, Partial-one ovary left FAMILY HISTORY Problem Relation Age of Onset Heart Father [place] Osteoporosis Mother ? Social History Tobacco Use Smoking status: Never Smokeless tobacco: Never Vaping Use Vaping Use: Never used Substance and Sexual Activity Alcohol use: No Drug use: No Sexual activity: Not Currently ALLERGIES Allergen Reactions Poison Jodi Other: See Comments Poison Jodi rash Zocor [Simvastatin] Myalgia Muscle aches Actos [Pioglitazone* Diarrhea Altace [Ramipril] Cough Arthrotec 50 [Diclo* GI Upset Augmentin [Amoxicil* GI Upset Celebrex [Celecoxib] Codeine Vomiting Crestor [Rosuvastat* Myalgia Muscle aches, tried two different times at low doses and had muscle cramping in legs Demerol [Meperidine* GI Upset Feldene [Piroxicam] GI Upset Glucophage [Metform* GI Upset diarrhea Lasix [Furosemide] dizzy Lipitor [Atorvastat* Myalgia Muscle aches Pravastatin Other: See Comments muscle aches calf Sulfa (Sulfonamide * GI Upset Tricor [Fenofibrate* Zetia [Ezetimibe] Diarrhea Review of Systems All other systems reviewed and are negative. Physical Exam Vitals BP Pulse Temp Temp src Resp SpO2 Weight Height 11/28/23 0954 11/28/23 0954 11/28/23 0954 11/28/23 0954 11/28/23 0954 11/28/23 1009 11/28/23 0954 -- 162/82 (!) 95 37.3 ?C (99.2 ?F) Temporal 16 99 % 59.9 kg (132 lb) Physical Exam Vitals and nursing note reviewed. Constitutional: Appearance: She is well-developed. She is not toxic-appearing or diaphoretic. HENT: Head: Normocephalic and atraumatic. Right Ear: Tympanic membrane, ear canal and external ear normal. Left Ear: Tympanic membrane, ear canal and external ear normal. Mouth/Throat: Mouth: Mucous membranes are moist. Mucous membranes are not dry. Pharynx: Uvula midline. No oropharyngeal exudate or posterior oropharyngeal erythema. Eyes: General: No scleral icterus. Extraocular Movements: Extraocular movements intact. Conjunctiva/sclera: Conjunctivae normal. Right eye: Right conjunctiva is not injected. Left eye: Left conjunctiva is not injected. Pupils: Pupils are equal, round, and reactive to light. Neck: Vascular: No carotid bruit or JVD. Cardiovascular: Rate and Rhythm: Normal rate and regular rhythm. Pulses: Normal pulses. Heart sounds: Normal heart sounds. No murmur heard. No friction rub. No gallop. Pulmona (more content not included)... Normal [facility] HIGH SENSITIVITY TROPONIN T (INITIAL)on 11-28-2023 Troponin T.cardiac High sensitivity method [Mass/Vol] 34 ng/L High <12 [facility] Comment on above: Order Comment: Moise lewis Type: BLOOD SPECIMEN Ordering Facility: [facility] Address: [address] [place] [address] Result Comment: When assessing risk for acute coronary syndromes: In patients undergoing blood draw greater than or equal to 2 hours from symptom onset, with history of very low to moderate risk and non-ischemic ECG, an initial hs-Troponin T less than 12 ng/L AND a 1 hour delta hs-Troponin T less than 3 ng/L should be considered very low risk for 30 day MACE. Performed By: #### L [id number] #### [facility] CLIA [id number] [address] [place] [address] HIGH SENSITIVITY TROPONIN T (SECOND)on 11-28-2023 Troponin T.cardiac High sensitivity method [Mass/Vol] 34 ng/L High <12 [facility] Comment on above: Order Comment: Moise lewis Type: BLOOD SPECIMEN Ordering Facility: [facility] Address: [address] [place] [address] Result Comment: When assessing risk for acute coronary syndromes: In patients undergoing blood draw greater than or equal to 2 hours from symptom onset, with history of very low to moderate risk and non-ischemic ECG, an initial hs-Troponin T less than 12 ng/L AND a 1 hour delta hs-Troponin T less than 3 ng/L should be considered very low risk for 30 day MACE. Performed By: #### L [id number] #### [facility] CLIA [id number] [address] HIGH SENSITIVITY TROPONIN T (THIRD) 3 HRS AFTER INITIALon 11-28-2023 Troponin T.cardiac High sensitivity method [Mass/Vol] 33 ng/L High <12 [facility] Comment on above: Order Comment: Moise lewis Type: BLOOD SPECIMEN Ordering Facility: [facility] Address: [address] [place] [address] Result Comment: When assessing risk for acute coronary syndromes: In patients undergoing blood draw greater than or equal to 2 hours from symptom onset, with history of very low to moderate risk and non-ischemic ECG, an initial hs-Troponin T less than 12 ng/L AND a 1 hour delta hs-Troponin T less than 3 ng/L should be considered very low risk for 30 day MACE. Performed By: #### L [id number] #### [facility] CLIA [id number] [address] [place] [address] Urinalysis complete panel (U )on 11-28-2023 Bacteria LM.HPF (Urine sed) [#/Area] Few Abnormal None Seen [facility] Comment on above: Order Comment: Moise lewis Type: BLOOD SPECIMEN Ordering Facility: [facility] Address: [address] [place] [address] Performed By: #### L [id number] #### [facility] CLIA [id number] [address] [place] [address] Bilirubin Ql (U) 1+ Abnormal Negative [facility] Comment on above: Order Comment: Moise lewis Type: BLOOD SPECIMEN Ordering Facility: [facility] Address: [address] [place] [address] Result Comment: Sugg est correlation with clinical findings and serum bilirubin if clinically indicated. Performed By: #### L [id number] #### [facility] CLIA [id number] [address] [place] [address] [place] Clarity (Unsp spec) Clear Normal Clear [facility] Comment on above: Order Comment: Moise lewis Type: BLOOD SPECIMEN Ordering Facility: [facility] Address: [address] [place] [address] Performed By: #### L [id number] #### [facility] CLIA [id number] [address] [place] [address] [place] Color (U) Yellow Normal Yellow [facility] Comment on above: Order Comment: Speci men Type: BLOOD SPECIMEN Ordering Facility: [facility] Address: [address] [place] [address] Performed By: #### L [id number] #### [facility] CLIA [id number] [address] [place] [address] [place] Epithelial cells LM.HPF (Urine sed) [#/Area] Few Normal [facility] Comment on above: Order Comment: Speci men Type: BLOOD SPECIMEN Ordering Facility: [facility] Address: [address] [place] [address] Performed By: #### L [id number] #### [facility] CLIA [id number] [address] [place] [address] [place] Glucose Test strip (U) [Mass/Vol] Negative Normal Negative [facility] Comment on above: Order Comment: Speci men Type: BLOOD SPECIMEN Ordering Facility: [facility] Address: [address] [place] [address] Performed By: #### L [id number] #### [facility] CLIA [id number] [address] [place] [address] [place] Hemoglobin Ql (U) 1+ Abnormal Negative [facility] Comment on above: Order Comment: Speci men Type: BLOOD SPECIMEN Ordering Facility: [facility] Address: [address] [place] [address] Performed By: #### L [id number] #### [facility] CLIA [id number] [address] [place] [address] [place] Ketones Ql (U) 2+ Abnormal Negative [facility] Comment on above: Order Comment: Speci men Type: BLOOD SPECIMEN Ordering Facility: [facility] Address: [address] [place] [address] Performed By: #### L [id number] #### [facility] CLIA [id number] [address] Leukocyte esterase Test strip Ql (U) Trace Abnormal Negative [facility] Comment on above: Order Comment: Speci men Type: BLOOD SPECIMEN Ordering Facility: [facility] Address: [address] [place] [address] Performed By: #### L [id number] #### [facility] CLIA [id number] [address] Nitrite Ql (U) Negative Normal Negative [facility] Comment on above: Order Comment: Speci men Type: BLOOD SPECIMEN Ordering Facility: [facility] Address: [address] [place] [address] Performed By: #### L [id number] #### [facility] CLIA [id number] [address] [place] [address] pH (U) 5.5 [pH] Normal 5.0-8.0 [facility] Comment on above: Order Comment: Speci men Type: BLOOD SPECIMEN Ordering Facility: [facility] Address: [address] [place] [address] Performed By: #### L [id number] #### [facility] CLIA [id number] [address] [place] [address] Protein (U) [Mass/Vol] 2+ Abnormal Negative [facility] Comment on above: Order Comment: Speci men Type: BLOOD SPECIMEN Ordering Facility: [facility] Address: [address] [place] [address] Performed By: #### L [id number] #### [facility] CLIA [id number] [address] [place] [address] RBC LM.HPF (Urine sed) [#/Area] 6-10 /HPF Abnormal 0-3 /HPF [facility] Comment on above: Order Comment: Speci men Type: BLOOD SPECIMEN Ordering Facility: [facility] Address: [address] [place] [address] Performed By: #### L [id number] #### [facility] CLIA [id number] [address] Specific gravity (U) [Rel density] 1.020 Normal 1.005-1.030 [facility] Comment on above: Order Comment: Speci men Type: BLOOD SPECIMEN Ordering Facility: [facility] Address: [address] [place] [address] Performed By: #### L [id number] #### [facility] CLIA [id number] [address] [place] [address] Urobilinogen Ql (U) 0.2 EU/dL Normal 0.2-1.0 EU/dL [facility] Comment on above: Order Comment: Speci men Type: BLOOD SPECIMEN Ordering Facility: [facility] Address: [address] [place] [address] Performed By: #### L [id number] #### [facility] CLIA [id number] [address] [place] [address] WBC LM.HPF (Urine sed) [#/Area] 0-5 /HPF Normal 0-5 /HPF [facility] Comment on above: Order Comment: Speci men Type: BLOOD SPECIMEN Ordering Facility: [facility] Address: [address] [place] [address] Performed By: #### L [id number] #### [facility] CLIA [id number] [address] [place] [address] Yeast.budding LM.HPF (Urine sed) [#/Area] Few Abnormal None Seen [facility] Comment on above: Order Comment: Speci men Type: BLOOD SPECIMEN Ordering Facility: [facility] Address: [address] [place] [address] Performed By: #### L [id number] #### [facility] CLIA [id number] [address] [place] [address] [place] XR CHEST 1V FRONTALon 2023 XR CHEST 1V FRONTAL * * *Final Report* * * DATE OF EXAM: Nov 28 2023 11:18AM LDX 5290 - XR CHEST 1V FRONTAL / PROCEDURE REASON: Other * * * * Physician Interpretation * * * * EXAMINATION: CHEST RADIOGRAPH (SINGLE VIEW AP OR PA) CLINICAL HISTORY: Other, episode of loss of consciousness MQ: XC1_5 Comparison: 11/08/2023 RESULT: Lines, tubes, and devices: Dual-chamber cardiac pacemaker in the left chest wall with uninterrupted leads along the right atrial and right ventricle, stable. There are overlying cardiac monitoring leads. Lungs and pleura: No consolidation. No lung mass. No pleural effusion. Cardiomediastinal silhouette: Normal cardiomediastinal silhouette. Other: No bony abnormalities. IMPRESSION: No acute radiographic abnormality. [employer] Contacts: [facility] Transcribe Date/Time: Nov 28 2023 11:28A Dictated by : RYAN LYN MD This examination was interpreted and the report reviewed and electronically signed by: RYAN LYN MD on Nov 28 2023 11:29AM EST [id number] Normal [facility] ANGELICA TORIBIO ([id number]) 1950 F Date Time Provider Department 11/24/23 ALVARO MEDINA HCSIND During your visit today, we recorded the following information about you: Alvaro Medina LSW 11/24/2023 11:41 AM Signed 11/24/23 ADMINISTRATIVE RESOURCES ASSOCIATE called the pt. regarding ADMINISTRATIVE RESOURCES ASSOCIATE visit and community resources. 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 ADMINISTRATIVE RESOURCES ASSOCIATE discussed with the pt. regarding needing more help in the home. The pt. stated she did not need more help and that her boyfriend lives with her and he assists her. ADMINISTRATIVE RESOURCES ASSOCIATE asked the pt. about transportation. The pt. stated she needs transportation to the grocery store. She discussed with ADMINISTRATIVE RESOURCES ASSOCIATE that her and her boyfriend took a taxi to [facility] the other day and she did not feel good and was taken to the ER and she stated she was not admitted. The pt. stated they ate at [facility]. The pt. stated that Keisha the Nurse was there yesterday and is coming back on Monday. The pt. stated there was another Nurse before Keisha and she could not think of her name. The pt. was talking with her boyfriend in the background and stated the Nusre was Evelin. ADMINISTRATIVE RESOURCES ASSOCIATE educated the pt. on [employer] and [facility]. The pt. stated she has used [employer] for Transportation and she stated they were to sign her up with [facility] [employer]. ADMINISTRATIVE RESOURCES ASSOCIATE stated she could call and see if she was registered. The pt. stated she will call [employer] and she has appointments out of [facility]. The pt. aware that [employer] maybe able to transport her out of [facility]. ADMINISTRATIVE RESOURCES ASSOCIATE educated the pt. on the [employer] providing transportation and the pt. was aware of this and stated she sees their vans around [facility]. ADMINISTRATIVE RESOURCES ASSOCIATE discussed with the pt. she would have to pay for transportation through [employer]. ADMINISTRATIVE RESOURCES ASSOCIATE asked the pt. if she was managing financially and she stated she gets Social Security and denied any financial stress. ADMINISTRATIVE RESOURCES ASSOCIATE asked the pt. about her bathing and needing more help. ADMINISTRATIVE RESOURCES ASSOCIATE educated the pt. on [employer]/[facility] Agency on Aging. The pt. stated she was aware of [employer] and did not need more help. She feels they can amanage their own meals. The pt. was supportive for ADMINISTRATIVE RESOURCES ASSOCIATE to mail her information on Transportation services in [facility]. ADMINISTRATIVE RESOURCES ASSOCIATE provided the pt. with her name and phone number to call with any needs. 11/24/23 ADMINISTRATIVE RESOURCES ASSOCIATE mailed the pt. information on Transportation Services in [facility]-[employer] [place]- [facility], [employer] [facility] [employer], information on [facility] Agency on Aging and the [facility] and information on [employer] Information Referral [employer]. Thank You, Allergies As of Date: 11/24/2023 Noted Allergy Reaction POISON JODI 12/17/2013 14 - Other: See Comments Comments: Poison Jodi rash ZOCOR (SIMVASTATIN) 03/21/2019 17 - Myalgia Comments: Muscle aches ACTOS (PIOGLITAZONE HCL) 07/19/2005 6 - Diarrhea ALTACE (RAMIPRIL) 07/19/2005 3 - Cough ARTHROTEC 50 (DICLOFENAC-MISOPROS*12/2005 8 - GI Upset AUGMENTIN (AMOXICILLIN-POT CLAVUL*02/26/2005 8 - GI Upset CELEBREX (CELECOXIB) 07/19/2005 CODEINE 02/26/2005 11 - Vomiting CRESTOR (ROSUVASTATIN CALCIUM) 07/19/2005 17 - Myalgia Comments: Muscle aches, tried two different times at low doses and had muscle cramping in legs DEMEROL (MEPERIDINE HCL) 02/26/2005 8 - GI Upset FELDENE (PIROXICAM) 07/19/2005 8 - GI Upset GLUCOPHAGE (METFORMIN HCL) 08/31/2013 8 - GI Upset Comments: diarrhea LASIX (FUROSEMIDE) 03/30/2005 Comments: dizzy LIPITOR (ATORVASTATIN CALCIUM) 07/19/2005 17 - Myalgia Comments: Muscle aches PRAVASTATIN 01/03/2012 14 - Other: See Comments Comments: muscle aches calf SULFA (SULFONAMIDE ANTIBIOTICS) 04/22/2005 8 - GI Upset TRICOR (FENOFIBRATE MICRONIZED) 07/19/2005 ZETIA (EZETIMIBE) 07/19/2005 6 - Diarrhea Date Reviewed: 11/23/2023 Reviewed by: Keisha Westbrook, RN - Fully Assessed Reason for Visit: Home Care [4073] Prescriptions as of 11/24/2023 - glimepiride (AMARYL) 4 mg tablet Take 1 tablet by mouth daily with breakfast. - biotin 5 mg tab Take 5 mg by mouth once daily. - amLODIPine (NORVASC) 10 mg tablet Take 1 tablet by mouth once daily. - acetaminophen (TYLENOL) 500 mg tablet Take 2 tablets by mouth every 8 hours as needed for pain. - hydrALAZINE (APRESOLINE) 25 mg tablet Take 1 tablet by mouth three times a day. - Cholecalciferol, Vitamin D3, 25 mcg (1,000 unit) cap Take 1 capsule by mouth once daily. - Blood Pressure Monitor 1 Each once daily. Meds Comments as of 05/02/2018: Tylenol Problem List As Of Date 11/24/2023 Noted Resolved LUMBAGO [M54.50] 03/30/2005 SCIATICA [M54.30] 03/30/2005 Generalized osteoarthritis of multiple sites [M*03/30/2005 Cardiovascular disease [I25.10] 04/22/2005 Chest pain, unspec (more content not included)... Normal [facility] CNPNon 11-23-2023 CNPN Telephone (HCSIND) ----- ANGELICA TORIBIO ([id number]) 1950 F Date Time Provider Department 11/23/23 EVELIN MARTINEZ HCSIND During your visit today, we recorded the following information about you: Evelin Martinez RN 11/23/2023 8:20 AM Signed Good morning, SN sent this message to on November 19: Patient began [facility] services today s/p pacemaker. Patient's BP noted to be in 160s. SN had patient take her second dose of hydralazine with no results. BP 168/64. Asymptomatic. SN attempted to contact office but only answering machine available. SN spoke with Virtualist. Virtualist advised follow-up SNV tomorrow. Patient declined to go to ED. Nursing will see patient in her home tomorrow. Nursing was scheduled to see patient on November 20 but the visit was unmade. Dr. Orozco asked me to defer this situation to you. Patient encouraged to make follow-up appointment with PCP. Thank you, Evelin Martinez RN Allergies As of Date: 11/23/2023 Noted Allergy Reaction POISON JODI 12/17/2013 14 - Other: See Comments Comments: Poison Jodi rash ZOCOR (SIMVASTATIN) 03/21/2019 17 - Myalgia Comments: Muscle aches ACTOS (PIOGLITAZONE HCL) 07/19/2005 6 - Diarrhea ALTACE (RAMIPRIL) 07/19/2005 3 - Cough ARTHROTEC 50 (DICLOFENAC-MISOPROS*12/2005 8 - GI Upset AUGMENTIN (AMOXICILLIN-POT CLAVUL*02/26/2005 8 - GI Upset CELEBREX (CELECOXIB) 07/19/2005 CODEINE 02/26/2005 11 - Vomiting CRESTOR (ROSUVASTATIN CALCIUM) 07/19/2005 17 - Myalgia Comments: Muscle aches, tried two different times at low doses and had muscle cramping in legs DEMEROL (MEPERIDINE HCL) 02/26/2005 8 - GI Upset FELDENE (PIROXICAM) 07/19/2005 8 - GI Upset GLUCOPHAGE (METFORMIN HCL) 08/31/2013 8 - GI Upset Comments: diarrhea LASIX (FUROSEMIDE) 03/30/2005 Comments: dizzy LIPITOR (ATORVASTATIN CALCIUM) 07/19/2005 17 - Myalgia Comments: Muscle aches PRAVASTATIN 01/03/2012 14 - Other: See Comments Comments: muscle aches calf SULFA (SULFONAMIDE ANTIBIOTICS) 04/22/2005 8 - GI Upset TRICOR (FENOFIBRATE MICRONIZED) 07/19/2005 ZETIA (EZETIMIBE) 07/19/2005 6 - Diarrhea Date Reviewed: 11/20/2023 Reviewed by: Evelin Martinez, RN - Fully Assessed Prescriptions as of 11/23/2023 - glimepiride (AMARYL) 4 mg tablet Take 1 tablet by mouth daily with breakfast. - biotin 5 mg tab Take 5 mg by mouth once daily. - amLODIPine (NORVASC) 10 mg tablet Take 1 tablet by mouth once daily. - acetaminophen (TYLENOL) 500 mg tablet Take 2 tablets by mouth every 8 hours as needed for pain. - hydrALAZINE (APRESOLINE) 25 mg tablet Take 1 tablet by mouth three times a day. - Cholecalciferol, Vitamin D3, 25 mcg (1,000 unit) cap Take 1 capsule by mouth once daily. - Blood Pressure Monitor 1 Each once daily. Meds Comments as of 05/02/2018: Tylenol Problem List As Of Date 11/23/2023 Noted Resolved LUMBAGO [M54.50] 03/30/2005 SCIATICA [M54.30] 03/30/2005 Generalized osteoarthritis of multiple sites [M*03/30/2005 Cardiovascular disease [I25.10] 04/22/2005 Chest pain, unspecified [R07.9] 04/22/2005 08/19/2013 MIXED HYPERLIPIDEMIA [E78.2] 04/22/2005 Hypertensive kidney disease with stage 3a chron*04/22/2005 EDEMA [R60.9] 11/08/2005 Type I (juvenile type) diabetes mellitus withou* 01/03/2012 MALAISE AND FATIGUE NEC [R53.81, R53.83] ANXIETY STATE NOS [F41.1] LUMBAR DISC DISPLACEMENT [M51.26] ARTHROPATHY NOS-L/LEG [M17.10] 01/19/2007 Bursitis of shoulder, left [M75.52] 08/19/2010 Vitamin D deficiency [E55.9] 10/29/2012 Cellulitis of buttock [L03.317] 12/07/2012 03/09/2020 Anxiety [F41.9] 01/26/2013 External hemorrhoids [K64.4] 09/01/2013 Stage 3a chronic kidney disease (HCC) [N18.31] 12/05/2013 PTSD (post-traumatic stress disorder) [F43.10] 12/26/2014 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] 12/26/2014 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] 12/26/2014 Reactive 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] 12/30/2014 Type 2 diabetes mellitus with stage 3a chronic *02/11/2016 Cutaneous horn [L85.8] 02/11/2016 Uncontrolled type 2 diabetes mellitus without c*07/14/2016 10/05/2018 Heart murmur, systolic [R01.1] 03/21/2019 Severe nonproliferative diabetic retinopathy of*10/12/2021 Exudative age-related macular degeneration of r*11/07/2022 Complete heart block (HCC) [I44.2] 11/05/2023 Sinoatrial node dysfunction (HCC) [I49.5] 11/08/2023 Presence of permanent cardiac pacemaker [Z95.0] 11/09/2023 Hypertensive urgency [I16.0] 11/09/2023 11/15/2023 UTI due to Klebsiella species [N39.0, B96.89] 11/09/2023 11/15/2023 JERMEIE (acute kidney injury) (HCC) [N17.9] 11/09/2023 11/15/2023 Other chest pain [R07.89] 11/09/2023 11/15/2023 Malnutrition of mild degree (HCC) [E44.1] 11/13/2023 Delirium [R41.0] 11/14/2023 11/15/2023 Encounter Status:Closed by EVELIN MARTINEZ on 11/23/23 [facility] CNPNon 11-20-2023 CNPN Telephone (HCSIND) ----- ANGELICA TORIBIO ([id number]) 1950 F Date Time Provider Department 11/20/23 EVELIN MARTINEZ HCSIND During your visit today, we recorded the following information about you: Evelin Martinez RN 11/20/2023 5:49 PM Signed Patient began [facility] services today s/p pacemaker. Patient's BP noted to be in 160s. SN had patient take her second dose of hydralazine with no results. BP 168/64. Asymptomatic. SN attempted to contact office but only answering machine available. SN spoke with Virtualist. Virtualist advised follow-up SNV tomorrow. Patient declined to go to ED. Nursing will see patient in her home tomorrow. Thank you, Evelin Martinez RN Allergies As of Date: 11/20/2023 Noted Allergy Reaction POISON JODI 12/17/2013 14 - Other: See Comments Comments: Poison Jodi rash ZOCOR (SIMVASTATIN) 03/21/2019 17 - Myalgia Comments: Muscle aches ACTOS (PIOGLITAZONE HCL) 07/19/2005 6 - Diarrhea ALTACE (RAMIPRIL) 07/19/2005 3 - Cough ARTHROTEC 50 (DICLOFENAC-MISOPROS*12/2005 8 - GI Upset AUGMENTIN (AMOXICILLIN-POT CLAVUL*02/26/2005 8 - GI Upset CELEBREX (CELECOXIB) 07/19/2005 CODEINE 02/26/2005 11 - Vomiting CRESTOR (ROSUVASTATIN CALCIUM) 07/19/2005 17 - Myalgia Comments: Muscle aches, tried two different times at low doses and had muscle cramping in legs DEMEROL (MEPERIDINE HCL) 02/26/2005 8 - GI Upset FELDENE (PIROXICAM) 07/19/2005 8 - GI Upset GLUCOPHAGE (METFORMIN HCL) 08/31/2013 8 - GI Upset Comments: diarrhea LASIX (FUROSEMIDE) 03/30/2005 Comments: dizzy LIPITOR (ATORVASTATIN CALCIUM) 07/19/2005 17 - Myalgia Comments: Muscle aches PRAVASTATIN 01/03/2012 14 - Other: See Comments Comments: muscle aches calf SULFA (SULFONAMIDE ANTIBIOTICS) 04/22/2005 8 - GI Upset TRICOR (FENOFIBRATE MICRONIZED) 07/19/2005 ZETIA (EZETIMIBE) 07/19/2005 6 - Diarrhea Date Reviewed: 11/20/2023 Reviewed by: Evelin Martinez RN - Fully Assessed Reason for Visit: Home Care [4073] Cmt: Hypertensive Prescriptions as of 11/20/2023 - glimepiride (AMARYL) 4 mg tablet Take 1 tablet by mouth daily with breakfast. - biotin 5 mg tab Take 5 mg by mouth once daily. - amLODIPine (NORVASC) 10 mg tablet Take 1 tablet by mouth once daily. - acetaminophen (TYLENOL) 500 mg tablet Take 2 tablets by mouth every 8 hours as needed for pain. - hydrALAZINE (APRESOLINE) 25 mg tablet Take 1 tablet by mouth three times a day. - Cholecalciferol, Vitamin D3, 25 mcg (1,000 unit) cap Take 1 capsule by mouth once daily. - Blood Pressure Monitor 1 Each once daily. Meds Comments as of 05/02/2018: Tylenol Problem List As Of Date 11/20/2023 Noted Resolved LUMBAGO [M54.50] 03/30/2005 SCIATICA [M54.30] 03/30/2005 Generalized osteoarthritis of multiple sites [M*03/30/2005 Cardiovascular disease [I25.10] 04/22/2005 Chest pain, unspecified [R07.9] 04/22/2005 08/19/2013 MIXED HYPERLIPIDEMIA [E78.2] 04/22/2005 Hypertensive kidney disease with stage 3a chron*04/22/2005 EDEMA [R60.9] 11/08/2005 Type I (juvenile type) diabetes mellitus withou* 01/03/2012 MALAISE AND FATIGUE NEC [R53.81, R53.83] ANXIETY STATE NOS [F41.1] LUMBAR DISC DISPLACEMENT [M51.26] ARTHROPATHY NOS-L/LEG [M17.10] 01/19/2007 Bursitis of shoulder, left [M75.52] 08/19/2010 Vitamin D deficiency [E55.9] 10/29/2012 Cellulitis of buttock [L03.317] 12/07/2012 03/09/2020 Anxiety [F41.9] 01/26/2013 External hemorrhoids [K64.4] 09/01/2013 Stage 3a chronic kidney disease (HCC) [N18.31] 12/05/2013 PTSD (post-traumatic stress disorder) [F43.10] 12/26/2014 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] 12/26/2014 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] 12/26/2014 Reactive 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] 12/30/2014 Type 2 diabetes mellitus with stage 3a chronic *02/11/2016 Cutaneous horn [L85.8] 02/11/2016 Uncontrolled type 2 diabetes mellitus without c*07/14/2016 10/05/2018 Heart murmur, systolic [R01.1] 03/21/2019 Severe nonproliferative diabetic retinopathy of*10/12/2021 Exudative age-related macular degeneration of r*11/07/2022 Complete heart block (HCC) [I44.2] 11/05/2023 Sinoatrial node dysfunction (HCC) [I49.5] 11/08/2023 Presence of permanent cardiac pacemaker [Z95.0] 11/09/2023 Hypertensive urgency [I16.0] 11/09/2023 11/15/2023 UTI due to Klebsiella species [N39.0, B96.89] 11/09/2023 11/15/2023 JEREMIE (acute kidney injury) (HCC) [N17.9] 11/09/2023 11/15/2023 Other chest pain [R07.89] 11/09/2023 11/15/2023 Malnutrition of mild degree (HCC) [E44.1] 11/13/2023 Delirium [R41.0] 11/14/2023 11/15/2023 Encounter Status:Closed by EVELIN MARTINEZ on 11/20/23 [facility] 11-19-2023 CNPN Telephone (HCSIND) ----- ANGELICA TORIBIO ([id number]) 1950 F Date Time Provider Department 11/19/23 EVELIN MARTINEZ HCSIND During your visit today, we recorded the following information about you: Evelin Martinez, RN 11/19/2023 3:50 PM Signed Called patient to confirm and schedule start of care visit. No answer. No voicemail available. Allergies As of Date: 11/19/2023 Noted Allergy Reaction POISON JODI 12/17/2013 14 - Other: See Comments Comments: Poison Jodi rash ZOCOR (SIMVASTATIN) 03/21/2019 17 - Myalgia Comments: Muscle aches ACTOS (PIOGLITAZONE HCL) 07/19/2005 6 - Diarrhea ALTACE (RAMIPRIL) 07/19/2005 3 - Cough ARTHROTEC 50 (DICLOFENAC-MISOPROS*12/2005 8 - GI Upset AUGMENTIN (AMOXICILLIN-POT CLAVUL*02/26/2005 8 - GI Upset CELEBREX (CELECOXIB) 07/19/2005 CODEINE 02/26/2005 11 - Vomiting CRESTOR (ROSUVASTATIN CALCIUM) 07/19/2005 17 - Myalgia Comments: Muscle aches, tried two different times at low doses and had muscle cramping in legs DEMEROL (MEPERIDINE HCL) 02/26/2005 8 - GI Upset FELDENE (PIROXICAM) 07/19/2005 8 - GI Upset GLUCOPHAGE (METFORMIN HCL) 08/31/2013 8 - GI Upset Comments: diarrhea LASIX (FUROSEMIDE) 03/30/2005 Comments: dizzy LIPITOR (ATORVASTATIN CALCIUM) 07/19/2005 17 - Myalgia Comments: Muscle aches PRAVASTATIN 01/03/2012 14 - Other: See Comments Comments: muscle aches calf SULFA (SULFONAMIDE ANTIBIOTICS) 04/22/2005 8 - GI Upset TRICOR (FENOFIBRATE MICRONIZED) 07/19/2005 ZETIA (EZETIMIBE) 07/19/2005 6 - Diarrhea Date Reviewed: 11/08/2023 Reviewed by: Margarita Henley RN - Fully Assessed Reason for Visit: Home Care Arrangements [[id number]] Prescriptions as of 11/19/2023 - amLODIPine (NORVASC) 10 mg tablet Take 1 tablet by mouth once daily. - acetaminophen (TYLENOL) 500 mg tablet Take 2 tablets by mouth every 8 hours as needed for pain. - hydrALAZINE (APRESOLINE) 25 mg tablet Take 1 tablet by mouth three times a day. - Cholecalciferol, Vitamin D3, 25 mcg (1,000 unit) cap Take 1 capsule by mouth once daily. - glimepiride (AMARYL) 4 mg tablet Take 1 tablet by mouth daily with breakfast. - Blood Pressure Monitor 1 Each once daily. Meds Comments as of 05/02/2018: Tylenol Problem List As Of Date 11/19/2023 Noted Resolved LUMBAGO [M54.50] 03/30/2005 SCIATICA [M54.30] 03/30/2005 Generalized osteoarthritis of multiple sites [M*03/30/2005 Cardiovascular disease [I25.10] 04/22/2005 Chest pain, unspecified [R07.9] 04/22/2005 08/19/2013 MIXED HYPERLIPIDEMIA [E78.2] 04/22/2005 Hypertensive kidney disease with stage 3a chron*04/22/2005 EDEMA [R60.9] 11/08/2005 Type I (juvenile type) diabetes mellitus withou* 01/03/2012 MALAISE AND FATIGUE NEC [R53.81, R53.83] ANXIETY STATE NOS [F41.1] LUMBAR DISC DISPLACEMENT [M51.26] ARTHROPATHY NOS-L/LEG [M17.10] 01/19/2007 Bursitis of shoulder, left [M75.52] 08/19/2010 Vitamin D deficiency [E55.9] 10/29/2012 Cellulitis of buttock [L03.317] 12/07/2012 03/09/2020 Anxiety [F41.9] 01/26/2013 External hemorrhoids [K64.4] 09/01/2013 Stage 3a chronic kidney disease (HCC) [N18.31] 12/05/2013 PTSD (post-traumatic stress disorder) [F43.10] 12/26/2014 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] 12/26/2014 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] 12/26/2014 Reactive 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] 12/30/2014 Type 2 diabetes mellitus with stage 3a chronic *02/11/2016 Cutaneous horn [L85.8] 02/11/2016 Uncontrolled type 2 diabetes mellitus without c*07/14/2016 10/05/2018 Heart murmur, systolic [R01.1] 03/21/2019 Severe nonproliferative diabetic retinopathy of*10/12/2021 Exudative age-related macular degeneration of r*11/07/2022 Complete heart block (HCC) [I44.2] 11/05/2023 Sinoatrial node dysfunction (HCC) [I49.5] 11/08/2023 Presence of permanent cardiac pacemaker [Z95.0] 11/09/2023 Hypertensive urgency [I16.0] 11/09/2023 11/15/2023 UTI due to Klebsiella species [N39.0, B96.89] 11/09/2023 11/15/2023 JEREMIE (acute kidney injury) (HCC) [N17.9] 11/09/2023 11/15/2023 Other chest pain [R07.89] 11/09/2023 11/15/2023 Malnutrition of mild degree (HCC) [E44.1] 11/13/2023 Delirium [R41.0] 11/14/2023 11/15/2023 Encounter Status:Closed by EVELIN MARTINEZ on 11/19/23 [facility] [place] 11-17-2023 MARTIN Telephone (HCSIND) ----- NATHANIELANGELICA Marium ([id number]) 1950 F Date Time Provider Department 11/17/23 CARMEN JOHNSON During your visit today, we recorded the following information about you: Misty Stover, RN 11/17/2023 2:17 PM Signed Patient was to be seen today for SOC. Upon calling to set up visit pt request SOC for Monday afternoon. SOC to be changed to Monday11/20/23. Allergies As of Date: 11/17/2023 Noted Allergy Reaction POISON JODI 12/17/2013 14 - Other: See Comments Comments: Poison Jodi rash ZOCOR (SIMVASTATIN) 03/21/2019 17 - Myalgia Comments: Muscle aches ACTOS (PIOGLITAZONE HCL) 07/19/2005 6 - Diarrhea ALTACE (RAMIPRIL) 07/19/2005 3 - Cough ARTHROTEC 50 (DICLOFENAC-MISOPROS*12/2005 8 - GI Upset AUGMENTIN (AMOXICILLIN-POT CLAVUL*02/26/2005 8 - GI Upset CELEBREX (CELECOXIB) 07/19/2005 CODEINE 02/26/2005 11 - Vomiting CRESTOR (ROSUVASTATIN CALCIUM) 07/19/2005 17 - Myalgia Comments: Muscle aches, tried two different times at low doses and had muscle cramping in legs DEMEROL (MEPERIDINE HCL) 02/26/2005 8 - GI Upset FELDENE (PIROXICAM) 07/19/2005 8 - GI Upset GLUCOPHAGE (METFORMIN HCL) 08/31/2013 8 - GI Upset Comments: diarrhea LASIX (FUROSEMIDE) 03/30/2005 Comments: dizzy LIPITOR (ATORVASTATIN CALCIUM) 07/19/2005 17 - Myalgia Comments: Muscle aches PRAVASTATIN 01/03/2012 14 - Other: See Comments Comments: muscle aches calf SULFA (SULFONAMIDE ANTIBIOTICS) 04/22/2005 8 - GI Upset TRICOR (FENOFIBRATE MICRONIZED) 07/19/2005 ZETIA (EZETIMIBE) 07/19/2005 6 - Diarrhea Date Reviewed: 11/08/2023 Reviewed by: Margarita Henley, DEVONTE - Fully Assessed Reason for Visit: Homecare [Other] Prescriptions as of 11/17/2023 - amLODIPine (NORVASC) 10 mg tablet Take 1 tablet by mouth once daily. - acetaminophen (TYLENOL) 500 mg tablet Take 2 tablets by mouth every 8 hours as needed for pain. - hydrALAZINE (APRESOLINE) 25 mg tablet Take 1 tablet by mouth three times a day. - Cholecalciferol, Vitamin D3, 25 mcg (1,000 unit) cap Take 1 capsule by mouth once daily. - glimepiride (AMARYL) 4 mg tablet Take 1 tablet by mouth daily with breakfast. - Blood Pressure Monitor 1 Each once daily. Meds Comments as of 05/02/2018: Tylenol Problem List As Of Date 11/17/2023 Noted Resolved LUMBAGO [M54.50] 03/30/2005 SCIATICA [M54.30] 03/30/2005 Generalized osteoarthritis of multiple sites [M*03/30/2005 Cardiovascular disease [I25.10] 04/22/2005 Chest pain, unspecified [R07.9] 04/22/2005 08/19/2013 MIXED HYPERLIPIDEMIA [E78.2] 04/22/2005 Hypertensive kidney disease with stage 3a chron*04/22/2005 EDEMA [R60.9] 11/08/2005 Type I (juvenile type) diabetes mellitus withou* 01/03/2012 MALAISE AND FATIGUE NEC [R53.81, R53.83] ANXIETY STATE NOS [F41.1] LUMBAR DISC DISPLACEMENT [M51.26] ARTHROPATHY NOS-L/LEG [M17.10] 01/19/2007 Bursitis of shoulder, left [M75.52] 08/19/2010 Vitamin D deficiency [E55.9] 10/29/2012 Cellulitis of buttock [L03.317] 12/07/2012 03/09/2020 Anxiety [F41.9] 01/26/2013 External hemorrhoids [K64.4] 09/01/2013 Stage 3a chronic kidney disease (HCC) [N18.31] 12/05/2013 PTSD (post-traumatic stress disorder) [F43.10] 12/26/2014 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] 12/26/2014 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] 12/26/2014 Reactive 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] 12/30/2014 Type 2 diabetes mellitus with stage 3a chronic *02/11/2016 Cutaneous horn [L85.8] 02/11/2016 Uncontrolled type 2 diabetes mellitus without c*07/14/2016 10/05/2018 Heart murmur, systolic [R01.1] 03/21/2019 Severe nonproliferative diabetic retinopathy of*10/12/2021 Exudative age-related macular degeneration of r*11/07/2022 Complete heart block (HCC) [I44.2] 11/05/2023 Sinoatrial node dysfunction (HCC) [I49.5] 11/08/2023 Presence of permanent cardiac pacemaker [Z95.0] 11/09/2023 Hypertensive urgency [I16.0] 11/09/2023 11/15/2023 UTI due to Klebsiella species [N39.0, B96.89] 11/09/2023 11/15/2023 JEREMIE (acute kidney injury) (HCC) [N17.9] 11/09/2023 11/15/2023 Other chest pain [R07.89] 11/09/2023 11/15/2023 Malnutrition of mild degree (HCC) [E44.1] 11/13/2023 Delirium [R41.0] 11/14/2023 11/15/2023 Encounter Status:Closed by MISTY STOVER on 11/17/23 [facility] CNPN Telephone (HCSIND) ----- ANGELICA TORIBIO ([id number]) 1950 F Date Time Provider Department 11/17/23 XIMENA DEVLIN During your visit today, we recorded the following information about you: Ximena Devlin LPN 11/17/2023 2:23 PM Signed Carmen Johnson MD Patient declined initially planned visit on 11/15/23. [facility] is planning on initiating services on 11/20/23. Please let us know if you are agreeable to this date. If we do not hear back, we will continue with this planned date. Thank you, Ximena Devlin LPN [facility] Intake Nurse Allergies As of Date: 11/17/2023 Noted Allergy Reaction POISON JODI 12/17/2013 14 - Other: See Comments Comments: Poison Jodi rash ZOCOR (SIMVASTATIN) 03/21/2019 17 - Myalgia Comments: Muscle aches ACTOS (PIOGLITAZONE HCL) 07/19/2005 6 - Diarrhea ALTACE (RAMIPRIL) 07/19/2005 3 - Cough ARTHROTEC 50 (DICLOFENAC-MISOPROS*12/2005 8 - GI Upset AUGMENTIN (AMOXICILLIN-POT CLAVUL*02/26/2005 8 - GI Upset CELEBREX (CELECOXIB) 07/19/2005 CODEINE 02/26/2005 11 - Vomiting CRESTOR (ROSUVASTATIN CALCIUM) 07/19/2005 17 - Myalgia Comments: Muscle aches, tried two different times at low doses and had muscle cramping in legs DEMEROL (MEPERIDINE HCL) 02/26/2005 8 - GI Upset FELDENE (PIROXICAM) 07/19/2005 8 - GI Upset GLUCOPHAGE (METFORMIN HCL) 08/31/2013 8 - GI Upset Comments: diarrhea LASIX (FUROSEMIDE) 03/30/2005 Comments: dizzy LIPITOR (ATORVASTATIN CALCIUM) 07/19/2005 17 - Myalgia Comments: Muscle aches PRAVASTATIN 01/03/2012 14 - Other: See Comments Comments: muscle aches calf SULFA (SULFONAMIDE ANTIBIOTICS) 04/22/2005 8 - GI Upset TRICOR (FENOFIBRATE MICRONIZED) 07/19/2005 ZETIA (EZETIMIBE) 07/19/2005 6 - Diarrhea Date Reviewed: 11/08/2023 Reviewed by: Margarita Henley, RN - Fully Assessed Reason for Visit: Home Care [4073] Cmt: Delay in care Prescriptions as of 11/21/2023 - glimepiride (AMARYL) 4 mg tablet Take 1 tablet by mouth daily with breakfast. - biotin 5 mg tab Take 5 mg by mouth once daily. - amLODIPine (NORVASC) 10 mg tablet Take 1 tablet by mouth once daily. - acetaminophen (TYLENOL) 500 mg tablet Take 2 tablets by mouth every 8 hours as needed for pain. - hydrALAZINE (APRESOLINE) 25 mg tablet Take 1 tablet by mouth three times a day. - Cholecalciferol, Vitamin D3, 25 mcg (1,000 unit) cap Take 1 capsule by mouth once daily. - Blood Pressure Monitor 1 Each once daily. Meds Comments as of 05/02/2018: Tylenol Problem List As Of Date 11/17/2023 Noted Resolved LUMBAGO [M54.50] 03/30/2005 SCIATICA [M54.30] 03/30/2005 Generalized osteoarthritis of multiple sites [M*03/30/2005 Cardiovascular disease [I25.10] 04/22/2005 Chest pain, unspecified [R07.9] 04/22/2005 08/19/2013 MIXED HYPERLIPIDEMIA [E78.2] 04/22/2005 Hypertensive kidney disease with stage 3a chron*04/22/2005 EDEMA [R60.9] 11/08/2005 Type I (juvenile type) diabetes mellitus withou* 01/03/2012 MALAISE AND FATIGUE NEC [R53.81, R53.83] ANXIETY STATE NOS [F41.1] LUMBAR DISC DISPLACEMENT [M51.26] ARTHROPATHY NOS-L/LEG [M17.10] 01/19/2007 Bursitis of shoulder, left [M75.52] 08/19/2010 Vitamin D deficiency [E55.9] 10/29/2012 Cellulitis of buttock [L03.317] 12/07/2012 03/09/2020 Anxiety [F41.9] 01/26/2013 External hemorrhoids [K64.4] 09/01/2013 Stage 3a chronic kidney disease (HCC) [N18.31] 12/05/2013 PTSD (post-traumatic stress disorder) [F43.10] 12/26/2014 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] 12/26/2014 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] 12/26/2014 Reactive 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] 12/30/2014 Type 2 diabetes mellitus with stage 3a chronic *02/11/2016 Cutaneous horn [L85.8] 02/11/2016 Uncontrolled type 2 diabetes mellitus without c*07/14/2016 10/05/2018 Heart murmur, systolic [R01.1] 03/21/2019 Severe nonproliferative diabetic retinopathy of*10/12/2021 Exudative age-related macular degeneration of r*11/07/2022 Complete heart block (HCC) [I44.2] 11/05/2023 Sinoatrial node dysfunction (HCC) [I49.5] 11/08/2023 Presence of permanent cardiac pacemaker [Z95.0] 11/09/2023 Hypertensive urgency [I16.0] 11/09/2023 11/15/2023 UTI due to Klebsiella species [N39.0, B96.89] 11/09/2023 11/15/2023 JEREMIE (acute kidney injury) (HCC) [N17.9] 11/09/2023 11/15/2023 Other chest pain [R07.89] 11/09/2023 11/15/2023 Malnutrition of mild degree (HCC) [E44.1] 11/13/2023 Delirium [R41.0] 11/14/2023 11/15/2023 Encounter Status:Closed [facility] ANGEL[facility] TORIBIO ([id number]) 1950 F Date Time Provider Department 11/17/23 FLORA FRANCISCO HCSIND During your visit today, we recorded the following information about you: Flora Francisco RN 11/17/2023 2:00 PM Signed Patient declined home health start of care (SOC) for 11/17/23. Patient requests SOC reschedule on 11/20/23 Allergies As of Date: 11/17/2023 Noted Allergy Reaction POISON JODI 12/17/2013 14 - Other: See Comments Comments: Poison Jodi rash ZOCOR (SIMVASTATIN) 03/21/2019 17 - Myalgia Comments: Muscle aches ACTOS (PIOGLITAZONE HCL) 07/19/2005 6 - Diarrhea ALTACE (RAMIPRIL) 07/19/2005 3 - Cough ARTHROTEC 50 (DICLOFENAC-MISOPROS*02/0 12/2005 8 - GI Upset AUGMENTIN (AMOXICILLIN-POT CLAVUL*02/26/2005 8 - GI Upset CELEBREX (CELECOXIB) 07/19/2005 CODEINE 02/26/2005 11 - Vomiting CRESTOR (ROSUVASTATIN CALCIUM) 07/19/2005 17 - Myalgia Comments: Muscle aches, tried two different times at low doses and had muscle cramping in legs DEMEROL (MEPERIDINE HCL) 02/26/2005 8 - GI Upset FELDENE (PIROXICAM) 07/19/2005 8 - GI Upset GLUCOPHAGE (METFORMIN HCL) 08/31/2013 8 - GI Upset Comments: diarrhea LASIX (FUROSEMIDE) 03/30/2005 Comments: dizzy LIPITOR (ATORVASTATIN CALCIUM) 07/19/2005 17 - Myalgia Comments: Muscle aches PRAVASTATIN 01/03/2012 14 - Other: See Comments Comments: muscle aches calf SULFA (SULFONAMIDE ANTIBIOTICS) 04/22/2005 8 - GI Upset TRICOR (FENOFIBRATE MICRONIZED) 07/19/2005 ZETIA (EZETIMIBE) 07/19/2005 6 - Diarrhea Date Reviewed: 11/08/2023 Reviewed by: Margarita Henley, RN - Fully Assessed Reason for Visit: Home Care [4073] Prescriptions as of 11/17/2023 - amLODIPine (NORVASC) 10 mg tablet Take 1 tablet by mouth once daily. - acetaminophen (TYLENOL) 500 mg tablet Take 2 tablets by mouth every 8 hours as needed for pain. - hydrALAZINE (APRESOLINE) 25 mg tablet Take 1 tablet by mouth three times a day. - Cholecalciferol, Vitamin D3, 25 mcg (1,000 unit) cap Take 1 capsule by mouth once daily. - glimepiride (AMARYL) 4 mg tablet Take 1 tablet by mouth daily with breakfast. - Blood Pressure Monitor 1 Each once daily. Meds Comments as of 05/02/2018: Tylenol Problem List As Of Date 11/17/2023 Noted Resolved LUMBAGO [M54.50] 03/30/2005 SCIATICA [M54.30] 03/30/2005 Generalized osteoarthritis of multiple sites [M*03/30/2005 Cardiovascular disease [I25.10] 04/22/2005 Chest pain, unspecified [R07.9] 04/22/2005 08/19/2013 MIXED HYPERLIPIDEMIA [E78.2] 04/22/2005 Hypertensive kidney disease with stage 3a chron*04/22/2005 EDEMA [R60.9] 11/08/2005 Type I (juvenile type) diabetes mellitus withou* 01/03/2012 MALAISE AND FATIGUE NEC [R53.81, R53.83] ANXIETY STATE NOS [F41.1] LUMBAR DISC DISPLACEMENT [M51.26] ARTHROPATHY NOS-L/LEG [M17.10] 01/19/2007 Bursitis of shoulder, left [M75.52] 08/19/2010 Vitamin D deficiency [E55.9] 10/29/2012 Cellulitis of buttock [L03.317] 12/07/2012 03/09/2020 Anxiety [F41.9] 01/26/2013 External hemorrhoids [K64.4] 09/01/2013 Stage 3a chronic kidney disease (HCC) [N18.31] 12/05/2013 PTSD (post-traumatic stress disorder) [F43.10] 12/26/2014 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] 12/26/2014 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] 12/26/2014 Reactive 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] 12/30/2014 Type 2 diabetes mellitus with stage 3a chronic *02/11/2016 Cutaneous horn [L85.8] 02/11/2016 Uncontrolled type 2 diabetes mellitus without c*07/14/2016 10/05/2018 Heart murmur, systolic [R01.1] 03/21/2019 Severe nonproliferative diabetic retinopathy of*10/12/2021 Exudative age-related macular degeneration of r*11/07/2022 Complete heart block (HCC) [I44.2] 11/05/2023 Sinoatrial node dysfunction (HCC) [I49.5] 11/08/2023 Presence of permanent cardiac pacemaker [Z95.0] 11/09/2023 Hypertensive urgency [I16.0] 11/09/2023 11/15/2023 UTI due to Klebsiella species [N39.0, B96.89] 11/09/2023 11/15/2023 JEREMIE (acute kidney injury) (HCC) [N17.9] 11/09/2023 11/15/2023 Other chest pain [R07.89] 11/09/2023 11/15/2023 Malnutrition of mild degree (HCC) [E44.1] 11/13/2023 Delirium [R41.0] 11/14/2023 11/15/2023 Encounter Status:Closed by FLORA FRANCISCO on 11/17/23 [facility] CNCOon 11-16-2023 CNCO Letter Text Normal [facility] CNPNon 11-16-2023 CNPN Telephone (HCSIND) ----- ANGELICA TORIBIO ([id number]) 1950 F Date Time Provider Department 11/16/23 CARMEN JOHNSON HCSIND During your visit today, we recorded the following information about you: Navarro Cody 11/16/2023 10:35 AM Signed Called patient to confirm and schedule start of care visit. No answer. No message left. Thanks Navarro Cody, Die Cast Operator Allergies As of Date: 11/16/2023 Noted Allergy Reaction POISON JODI 12/17/2013 14 - Other: See Comments Comments: Poison Jodi rash ZOCOR (SIMVASTATIN) 03/21/2019 17 - Myalgia Comments: Muscle aches ACTOS (PIOGLITAZONE HCL) 07/19/2005 6 - Diarrhea ALTACE (RAMIPRIL) 07/19/2005 3 - Cough ARTHROTEC 50 (DICLOFENAC-MISOPROS*12/2005 8 - GI Upset AUGMENTIN (AMOXICILLIN-POT CLAVUL*02/26/2005 8 - GI Upset CELEBREX (CELECOXIB) 07/19/2005 CODEINE 02/26/2005 11 - Vomiting CRESTOR (ROSUVASTATIN CALCIUM) 07/19/2005 17 - Myalgia Comments: Muscle aches, tried two different times at low doses and had muscle cramping in legs DEMEROL (MEPERIDINE HCL) 02/26/2005 8 - GI Upset FELDENE (PIROXICAM) 07/19/2005 8 - GI Upset GLUCOPHAGE (METFORMIN HCL) 08/31/2013 8 - GI Upset Comments: diarrhea LASIX (FUROSEMIDE) 03/30/2005 Comments: dizzy LIPITOR (ATORVASTATIN CALCIUM) 07/19/2005 17 - Myalgia Comments: Muscle aches PRAVASTATIN 01/03/2012 14 - Other: See Comments Comments: muscle aches calf SULFA (SULFONAMIDE ANTIBIOTICS) 04/22/2005 8 - GI Upset TRICOR (FENOFIBRATE MICRONIZED) 07/19/2005 ZETIA (EZETIMIBE) 07/19/2005 6 - Diarrhea Date Reviewed: 11/08/2023 Reviewed by: Margarita Henley RN - Fully Assessed Reason for Visit: Home Care [4073] Cmt: SOC Confirmation (today) Prescriptions as of 11/16/2023 - amLODIPine (NORVASC) 10 mg tablet Take 1 tablet by mouth once daily. - acetaminophen (TYLENOL) 500 mg tablet Take 2 tablets by mouth every 8 hours as needed for pain. - hydrALAZINE (APRESOLINE) 25 mg tablet Take 1 tablet by mouth three times a day. - Cholecalciferol, Vitamin D3, 25 mcg (1,000 unit) cap Take 1 capsule by mouth once daily. - glimepiride (AMARYL) 4 mg tablet Take 1 tablet by mouth daily with breakfast. - Blood Pressure Monitor 1 Each once daily. Meds Comments as of 05/02/2018: Tylenol Problem List As Of Date 11/16/2023 Noted Resolved LUMBAGO [M54.50] 03/30/2005 SCIATICA [M54.30] 03/30/2005 Generalized osteoarthritis of multiple sites [M*03/30/2005 Cardiovascular disease [I25.10] 04/22/2005 Chest pain, unspecified [R07.9] 04/22/2005 08/19/2013 MIXED HYPERLIPIDEMIA [E78.2] 04/22/2005 Hypertensive kidney disease with stage 3a chron*04/22/2005 EDEMA [R60.9] 11/08/2005 Type I (juvenile type) diabetes mellitus withou* 01/03/2012 MALAISE AND FATIGUE NEC [R53.81, R53.83] ANXIETY STATE NOS [F41.1] LUMBAR DISC DISPLACEMENT [M51.26] ARTHROPATHY NOS-L/LEG [M17.10] 01/19/2007 Bursitis of shoulder, left [M75.52] 08/19/2010 Vitamin D deficiency [E55.9] 10/29/2012 Cellulitis of buttock [L03.317] 12/07/2012 03/09/2020 Anxiety [F41.9] 01/26/2013 External hemorrhoids [K64.4] 09/01/2013 Stage 3a chronic kidney disease (HCC) [N18.31] 12/05/2013 PTSD (post-traumatic stress disorder) [F43.10] 12/26/2014 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] 12/26/2014 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] 12/26/2014 Reactive 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] 12/30/2014 Type 2 diabetes mellitus with stage 3a chronic *02/11/2016 Cutaneous horn [L85.8] 02/11/2016 Uncontrolled type 2 diabetes mellitus without c*07/14/2016 10/05/2018 Heart murmur, systolic [R01.1] 03/21/2019 Severe nonproliferative diabetic retinopathy of*10/12/2021 Exudative age-related macular degeneration of r*11/07/2022 Complete heart block (HCC) [I44.2] 11/05/2023 Sinoatrial node dysfunction (HCC) [I49.5] 11/08/2023 Presence of permanent cardiac pacemaker [Z95.0] 11/09/2023 Hypertensive urgency [I16.0] 11/09/2023 11/15/2023 UTI due to Klebsiella species [N39.0, B96.89] 11/09/2023 11/15/2023 JEREMIE (acute kidney injury) (HCC) [N17.9] 11/09/2023 11/15/2023 Other chest pain [R07.89] 11/09/2023 11/15/2023 Malnutrition of mild degree (HCC) [E44.1] 11/13/2023 Delirium [R41.0] 11/14/2023 11/15/2023 Encounter Status:Closed by NAVARRO CODY on 11/16/23 [facility] HNO ID: [id number] Author: HELEN DAVIS MD Service: Hospital Medicine Author Type: Physician Type: Discharge Summary Filed: 11/15/2023 11:23 Note Text: DISCHARGE SUMMARY PATIENT NAME: Angelica Toribio Code Status: Full Code Highest Readmission Risk Score: 20 The 30 day readmissions risk score is derived from an internally validated risk model which evaluates patient level characteristics, utilization history, medication orders and lab results up until the day of discharge. Patients with a score of 40 or above are considered highest risk for readmission. Specific patient level drivers will be listed at the bottom of the summary. Admission Information Admission Information ADMIT DATE: 11/05/2023 DISCHARGE DATE: 11/15/2023 MY DOCTORS AND MEDICAL TEAM: My Main Hospital Doctor: Helen Davis MD Primary Care Provider: Carmen Johnson MD My Medical Team Members: Treatment Team: Attending Provider: Helen Davis MD Primary Service: TABATHA MARSHALL MY CONDITION AT DISCHARGE: Stable REASON I WAS IN THE HOSPITAL: UTI, JEREMIE, heart block, hypertensive urgency SUMMARY OF WHAT HAPPENED WHILE I WAS IN THE HOSPITAL: Ms. Angelica Toribio is a 73 year old female with PMH significant for T2DM [well-controlled], HTN, HLD, CAD, depression, and CKD. She presented on 11/05/2023 with pelvic / RLQ abdominal pain and dysuria that began acutely that morning [~ 5 AM]. On further prompting, she also endorsed dyspnea on exertion for the past month [with walking from her bedroom to the bathroom], orthopnea, and intermittent chest pain, and a near-syncopal episode a few weeks prior [which she attributed to dehydration]. In the ED, initial lab work was significant for JEREMIE on CKD and UA concerning forinfection [for which she was started on ceftriaxone]. EKG on arrival was concerning for bradycardia and 2nd-degree AV block [2:1]. She was subsequently admitted to the CVICU, treated with ceftriaxone for her Klebsiella UTI [symptoms of which have resolved], and underwent successful PPM placement on 11/07/[address] Orozco with no overt 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s. There was concern for cognitive impairment and inability to care for self. Psych was consulted who recommended outpatient follow up for neuropsych testing for possible dementia. Her BP medications were adjusted and BP improved. She was discharged home in stable condition with home health care. OTHER PROBLEMS/DIAGNOSIS: Principal Problem: Presence of permanent cardiac pacemaker Active Problems: Complete heart block (HCC) Sinoatrial node dysfunction (HCC) Malnutrition of mild degree (HCC) Resolved Problems: Hypertensive urgency UTI due to Klebsiella species JEREMIE (acute kidney injury) (HCC) Other chest pain Delirium OPERATIONS PERFORMED WHILE IN THE HOSPITAL: PPM placement IMPORTANT TEST/PROCEDURES: No procedures performed TEST RESULTS NOT AVAILABLE AT THIS TIME: No pending results Discharge Disposition Discharge Disposition: Home With Home Care Activity When You Leave the Hospital Lifting is restricted to:no more than 8 lbs for 6 weeks Left arm May drive 24 hours after discharged from the hospital No baths or showers for one week Do not get left upper chest pacemaker site wet for one week No exercise for: six weeks, no lifting over head Left arm Diet Instructions Diabetic For Pain When You Leave the Hospital Apply a covered cold pack to the area every two hours for two days 20 minutes at a time Use acetaminophen (Tylenol) as recommended on the bottle Wound/Surgical Site Care Any bruising and bumps should disappear within 3-4 days Avoid lotions or powders Check your wound every day Left upper chest pacemaker site If the bruising expands or the bump enlarges please call your doctor Some bruising, soreness or a small bump under the skin at the inserion site is normal Call Your Doctor If There is an unusual odor from the wound area There is severe pain at the operative site You have lightheadedness, fainting, or confusion You have persistent or heavy bleeding You have redness, swelling, pus or drainage from the wound Your temperature is greater than 101F Follow Up Appointments Follow-Up Appointment The office will call to schedule wound check in one week (phone call). Will arrange annual follow up with Dr. Orozco or WAREHOUSE OPERATIONS ASSOCIATE. When: In 1 week Patient/Parents to call for appointment?: No Noman Orozco MD [phone] [address] [facility] [address] [facility] [address] PCP Requested Referral Follow-Up Appointment Device check 12/21/2023 With: [facility] device clinic When: In 6 weeks Patient/Parents to call for appointment?: Scheduled Follow-Up Appointment Hospital follow up When: In 1 week Patient/Parents to call for appointment?: Yes Carmen Johnson MD [phone] [address] [facility] [address] PCP Requested Referral Additional Provider to (more content not included)... Normal [facility] CNPNon 11-15-2023 CNP Telephone (HCSIND) ----- ANGELICA TORIBIO ([id number]) 1950 F Date Time Provider Department 11/15/23 ISRAEL VIDAL HCSIND During your visit today, we recorded the following information about you: Israel Vidal 11/15/2023 9:18 AM Signed Date/Time: 11/15/2023 9:14 AM Spoke with Angelica @ phone #: [phone] - Preferred # for contact: [phone] Have you received help from a home care company in the last 60 days? no Are you agreeable to [facility] services? yes What address will we be seeing you at? [address] [facility] [address] Do you have any upcoming appointments or things we need to schedule around? no Do you have a teachable CG or can you manage your care independently? Allergies As of Date: 11/15/2023 Noted Allergy Reaction POISON JODI 12/17/2013 14 - Other: See Comments Comments: Poison Jodi rash ZOCOR (SIMVASTATIN) 03/21/2019 17 - Myalgia Comments: Muscle aches ACTOS (PIOGLITAZONE HCL) 07/19/2005 6 - Diarrhea ALTACE (RAMIPRIL) 07/19/2005 3 - Cough ARTHROTEC 50 (DICLOFENAC-MISOPROS*12/2005 8 - GI Upset AUGMENTIN (AMOXICILLIN-POT CLAVUL*02/26/2005 8 - GI Upset CELEBREX (CELECOXIB) 07/19/2005 CODEINE 02/26/2005 11 - Vomiting CRESTOR (ROSUVASTATIN CALCIUM) 07/19/2005 17 - Myalgia Comments: Muscle aches, tried two different times at low doses and had muscle cramping in legs DEMEROL (MEPERIDINE HCL) 02/26/2005 8 - GI Upset FELDENE (PIROXICAM) 07/19/2005 8 - GI Upset GLUCOPHAGE (METFORMIN HCL) 08/31/2013 8 - GI Upset Comments: diarrhea LASIX (FUROSEMIDE) 03/30/2005 Comments: dizzy LIPITOR (ATORVASTATIN CALCIUM) 07/19/2005 17 - Myalgia Comments: Muscle aches PRAVASTATIN 01/03/2012 14 - Other: See Comments Comments: muscle aches calf SULFA (SULFONAMIDE ANTIBIOTICS) 04/22/2005 8 - GI Upset TRICOR (FENOFIBRATE MICRONIZED) 07/19/2005 ZETIA (EZETIMIBE) 07/19/2005 6 - Diarrhea Date Reviewed: 11/08/2023 Reviewed by: Margarita Henley RN - Fully Assessed Reason for Visit: Home Care [4073] Cmt: Confirmation Call Prescriptions as of 11/15/2023 - indapamide (LOZOL) 1.25 mg tablet Take 1 tablet by mouth once daily. - Cholecalciferol, Vitamin D3, 25 mcg (1,000 unit) cap Take 1 capsule by mouth once daily. - glimepiride (AMARYL) 4 mg tablet Take 1 tablet by mouth daily with breakfast. - Blood Pressure Monitor 1 Each once daily. Facility-Administered Medications as of 11/15/2023 - polyethylene glycol 3350 17 g packet - senna-docusate 8.6-50 mg 1 tablet (SENNA-S) - dextrose 15 gram/32 mL 15 g (TRUEPLUS) - glucagon 1 mg injection - dextrose 10% iv bolus - insulin lispro injection (rapid acting) (ADMElog) - hydrOXYzine HCl 25 mg tab(s) (ATARAX) - LORazepam 0.5 mg tab(s) (ATIVAN) - amLODIPine 10 mg tab(s) (NORVASC) - hydrALAZINE 10 mg tab(s) (APRESOLINE) - oxyCODONE IR 5 mg tab(s) (ROXICODONE) - hydrALAZINE 10 mg injection (APRESOLINE) - melatonin 6 mg tab(s) - acetaminophen 1,000 mg tab(s) (TYLENOL) - pantoprazole DR 20 mg tab(s) (PROTONIX) - NaCl 0.9% iv flush bag Meds Comments as of 05/02/2018: Tylenol Problem List As Of Date 11/15/2023 Noted Resolved LUMBAGO [M54.50] 03/30/2005 SCIATICA [M54.30] 03/30/2005 Generalized osteoarthritis of multiple sites [M*03/30/2005 Cardiovascular disease [I25.10] 04/22/2005 Chest pain, unspecified [R07.9] 04/22/2005 08/19/2013 MIXED HYPERLIPIDEMIA [E78.2] 04/22/2005 Hypertensive kidney disease with stage 3a chron*04/22/2005 EDEMA [R60.9] 11/08/2005 Type I (juvenile type) diabetes mellitus withou* 01/03/2012 MALAISE AND FATIGUE NEC [R53.81, R53.83] ANXIETY STATE NOS [F41.1] LUMBAR DISC DISPLACEMENT [M51.26] ARTHROPATHY NOS-L/LEG [M17.10] 01/19/2007 Bursitis of shoulder, left [M75.52] 08/19/2010 Vitamin D deficiency [E55.9] 10/29/2012 Cellulitis of buttock [L03.317] 12/07/2012 03/09/2020 Anxiety [F41.9] 01/26/2013 External hemorrhoids [K64.4] 09/01/2013 Stage 3a chronic kidney disease (HCC) [N18.31] 12/05/2013 PTSD (post-traumatic stress disorder) [F43.10] 12/26/2014 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] 12/26/2014 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] 12/26/2014 Reactive 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] 12/30/2014 Type 2 diabetes mellitus with stage 3a chronic *02/11/2016 Cutaneous horn [L85.8] 02/11/2016 Uncontrolled type 2 diabetes mellitus without c*07/14/2016 10/05/2018 Heart murmur, systolic [R01.1] 03/21/2019 Severe nonproliferative diabetic retinopathy of*10/12/2021 Exudative age-related macular degeneration of r*11/07/2022 Complete heart block (HCC) [I44.2] 11/05/2023 Sinoatrial node dysfunction (HCC) [I49.5] 11/08/2023 Presence of permanent cardiac pacemaker [Z95.0] 11/09/2023 Hypertensive urgency [I16.0] 11/09/2023 UTI due to Klebsiella species [N39.0, B96.89] 11/09/2023 JEREMIE (acute kidney injury) (HCC) [N17.9] 11/09/2023 Other chest pain [R07.89] 11/09/2023 Malnutrition of mild degree (HCC) [E44. (more content not included)... Normal [facility] CASE MANAGEMon 11-14-2023 CASE MANAGEM HNO ID: [id number] Author: CAROLE HANSEN LSW Service: ? Author Type: Fiscal Accounting Clerk Type: Care Mgt Progress Note Filed: 11/14/2023 15:21 Note Text: CARE MANAGEMENT PROGRESS NOTE SERVICE DATE: 11/14/2023 SERVICE TIME: 3:19 PM LOS: 9 days SW called [facility] through [facility] ([phone]) due to mentation and altered mental status during this hospital admission, self neglect, trouble determining if this is pts baseline mentation at home, no living family, no emergency contact, potential risk for safety of self at home. Per [facility], this SW is to call back upon time for d/c, and re-report this information. SIGNATURE: LM Alcazar PATIENT NAME: Angelica Toribio DATE: November 14, 2023 TIME: 3:19 PM PAGER/CONTACT #: [phone] [facility] 11-14-2023 [facility] Telephone (HCSIND) ----- ANGELICA TORIBIO ([id number]) 1950 F Date Time Provider Department 11/14/23 ERNA LARA During your visit today, we recorded the following information about you: Erna Lara LPN 11/14/2023 5:31 PM Signed Carmen Johnson MD Please advise if you are agreeable to signing and following for HHC services? Our Clinicians will be sending the Plan of Care to you for review and approval. They will reach out for any appropriate orders required to provide home care services for the patient. We are not able to initiate HHC services without a following provider. Home care clinicians may also obtain orders from [facility] Providers Thank you and we would be happy to answer any questions. Erna Lara LPN 11/14/2023 5:31 PM Carmen Johnson MD 11/15/2023 3:27 PM Signed Agreeable and will sign Allergies As of Date: 11/14/2023 Noted Allergy Reaction POISON JODI 12/17/2013 14 - Other: See Comments Comments: Poison Jodi rash ZOCOR (SIMVASTATIN) 03/21/2019 17 - Myalgia Comments: Muscle aches ACTOS (PIOGLITAZONE HCL) 07/19/2005 6 - Diarrhea ALTACE (RAMIPRIL) 07/19/2005 3 - Cough ARTHROTEC 50 (DICLOFENAC-MISOPROS*12/2005 8 - GI Upset AUGMENTIN (AMOXICILLIN-POT CLAVUL*02/26/2005 8 - GI Upset CELEBREX (CELECOXIB) 07/19/2005 CODEINE 02/26/2005 11 - Vomiting CRESTOR (ROSUVASTATIN CALCIUM) 07/19/2005 17 - Myalgia Comments: Muscle aches, tried two different times at low doses and had muscle cramping in legs DEMEROL (MEPERIDINE HCL) 02/26/2005 8 - GI Upset FELDENE (PIROXICAM) 07/19/2005 8 - GI Upset GLUCOPHAGE (METFORMIN HCL) 08/31/2013 8 - GI Upset Comments: diarrhea LASIX (FUROSEMIDE) 03/30/2005 Comments: dizzy LIPITOR (ATORVASTATIN CALCIUM) 07/19/2005 17 - Myalgia Comments: Muscle aches PRAVASTATIN 01/03/2012 14 - Other: See Comments Comments: muscle aches calf SULFA (SULFONAMIDE ANTIBIOTICS) 04/22/2005 8 - GI Upset TRICOR (FENOFIBRATE MICRONIZED) 07/19/2005 ZETIA (EZETIMIBE) 07/19/2005 6 - Diarrhea Date Reviewed: 11/08/2023 Reviewed by: Margarita Henley, DEVONTE - Fully Assessed Reason for Visit: Home Care [4073] Cmt: MD to follow Prescriptions as of 11/15/2023 - amLODIPine (NORVASC) 10 mg tablet Take 1 tablet by mouth once daily. - acetaminophen (TYLENOL) 500 mg tablet Take 2 tablets by mouth every 8 hours as needed for pain. - hydrALAZINE (APRESOLINE) 25 mg tablet Take 1 tablet by mouth three times a day. - Cholecalciferol, Vitamin D3, 25 mcg (1,000 unit) cap Take 1 capsule by mouth once daily. - glimepiride (AMARYL) 4 mg tablet Take 1 tablet by mouth daily with breakfast. - Blood Pressure Monitor 1 Each once daily. Facility-Administered Medications as of 11/15/2023 - polyethylene glycol 3350 17 g packet - senna-docusate 8.6-50 mg 1 tablet (SENNA-S) - dextrose 15 gram/32 mL 15 g (TRUEPLUS) - glucagon 1 mg injection - dextrose 10% iv bolus - insulin lispro injection (rapid acting) (ADMElog) - hydrOXYzine HCl 25 mg tab(s) (ATARAX) - LORazepam 0.5 mg tab(s) (ATIVAN) - amLODIPine 10 mg tab(s) (NORVASC) - hydrALAZINE 10 mg tab(s) (APRESOLINE) - oxyCODONE IR 5 mg tab(s) (ROXICODONE) - hydrALAZINE 10 mg injection (APRESOLINE) - melatonin 6 mg tab(s) - acetaminophen 1,000 mg tab(s) (TYLENOL) - pantoprazole DR 20 mg tab(s) (PROTONIX) - NaCl 0.9% iv flush bag Meds Comments as of 05/02/2018: Tylenol Problem List As Of Date 11/14/2023 Noted Resolved LUMBAGO [M54.50] 03/30/2005 SCIATICA [M54.30] 03/30/2005 Generalized osteoarthritis of multiple sites [M*03/30/2005 Cardiovascular disease [I25.10] 04/22/2005 Chest pain, unspecified [R07.9] 04/22/2005 08/19/2013 MIXED HYPERLIPIDEMIA [E78.2] 04/22/2005 Hypertensive kidney disease with stage 3a chron*04/22/2005 EDEMA [R60.9] 11/08/2005 Type I (juvenile type) diabetes mellitus withou* 01/03/2012 MALAISE AND FATIGUE NEC [R53.81, R53.83] ANXIETY STATE NOS [F41.1] LUMBAR DISC DISPLACEMENT [M51.26] ARTHROPATHY NOS-L/LEG [M17.10] 01/19/2007 Bursitis of shoulder, left [M75.52] 08/19/2010 Vitamin D deficiency [E55.9] 10/29/2012 Cellulitis of buttock [L03.317] 12/07/2012 03/09/2020 Anxiety [F41.9] 01/26/2013 External hemorrhoids [K64.4] 09/01/2013 Stage 3a chronic kidney disease (HCC) [N18.31] 12/05/2013 PTSD (post-traumatic stress disorder) [F43.10] 12/26/2014 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 Normal [facility] CONSULT PROGon 11-14-2023 CONSULT PROG HNO ID: [id number] Author: RHONDA BRADLEY MD Service: Psychiatry Author Type: Physician Type: Consult Progress Note Filed: 11/14/2023 15:43 Note Text: CL FOLLOW UP - PSYCHIATRY CONSULTATION PROGRESS NOTE To get a hold of service: DAY TIME COVERAGE: Between 8AM to 5PM, contact Tania Antunez CNP, Dr. Bradley, or Batsheva Ziegler CNP. See hospital directory for numbers NIGHT, WEEKEND, AND HOLIDAY COVERAGE: After hours (5PM to 8AM), holidays AND weekends, call answering service at [phone] SERVICE DATE: November 14, 2023 SERVICE TIME: 0950 PRESENT HISTORY: Patient is alert, oriented to person, place, and time. She denies any recent memory loss. She asked why she was being seen by psychiatry; she was told it was because of her inability to retain, repeat, and remember the instructions for how to care for her pacemaker. Patient is adamant this is due to the stress she feels due being in the hospital. MOCA administered (). Patient educated this score indicates mild cognitive loss. She becomes upset and repeatedly asked do you think I'm retarded and are you going to lock me up. Patient unable to be reassured regarding either of these concerns. Patient states her boyfriend can help care for her. She states he can come to the hospital to meet with the team regarding her discharge disposition. She makes it clear she highly opposed to a SNF (patient stated this without prompting. We did not bring up a SNF). MENTAL STATUS EXAMINATION: Appearance: casually dressed, well groomed, appears stated age Behavior: in denial Psychomotor: No psychomotor agitation. Cognition Level of Consciousness: Awake and alert. No fluctuation in wakefulness. Orientation: Person, Place, Time and Situation Memory: Mildly Impaired (MOCA ) Attention/Concentration: appropriate Fund of Knowledge: Able to demonstrate an awareness of current events. Mood: upset Affect: distressed, Mood-congruent and reactive within a somewhat labile range. Speech/Language: Appropriate tone, prosody, driss, phonetics, and syntax Thought Form: linear, goal directed Thought Content: No delusions noted or endorsed. Perceptual Disturbances: Did not appear to respond to auditory stimuli. Safety: Suicidal Ideations: No suicidal ideation, intent or plan. Homicidal Ideations: No homicidal ideation, intent or plan. Insight: poor insight into cognitive decline Judgment: limited due to cognitive limitations and anxiety PHYSICAL EXAMINATION: Muscle Tone/Strength: No rigidity, hyperreflexia, or clonus noted. Moved extremities against gravity. Gait / Station: lying in bed, did not assess MEDICATIONS: Current Facility-Administered Medications Medication Dose Route Frequency Provider Last Rate Last Admin polyethylene glycol 3350 17 g packet 17 g ORAL DAILY AYSHAN Corwin Orellana DO 17 g at 11/13/232122 senna-docusate 8.6-50 mg 1 tablet (SENNA-S) 1 tablet ORAL BID PRN Corwin Orellana, DO dextrose 15 gram/32 mL 15 g (TRUEPLUS) 15 g ORAL PRN Corwin Orellana, DO Or glucagon 1 mg injection 1 mg INTRAMUSCULAR PRN Corwin Orellana, DO Or dextrose 10% iv bolus 12.5 g INTRAVENOUS PRN Shelly Orellanan, DO insulin lispro injection (rapid acting) (ADMElog) SUBCUTANEOUS w MEALS Corwin Orellana, DO 2 Units at 11/13/23 1627 hydrOXYzine HCl 25 mg tab(s) (ATARAX) 25 mg ORAL q 6 H PRN Corwin Orellana DO 25 mg at 11/09/23 2150 LORazepam 0.5 mg tab(s) (ATIVAN) 0.5 mg ORAL BID PRN Corwin Orellana, DO amLODIPine 10 mg tab(s) (NORVASC) 10 mg ORAL DAILY Tania Hawkins DO 10 mg at 11/14/23 0737 hydrALAZINE 10 mg tab(s) (APRESOLINE) 10 mg ORAL q 8 H Tania Hawkins DO 10 mg at 11/14/23 0508 oxyCODONE IR 5 mg tab(s) (ROXICODONE) 5 mg ORAL q 6 H PRN Tania Hawkins DO 5 mg at 11/07/23 2257 hydrALAZINE 10 mg injection (APRESOLINE) 10 mg INTRAVENOUS q 6 H PRN Tania Hawkins DO 10 mg at 11/08/23 2220 melatonin 6 mg tab(s) 6 mg ORAL DAILY (8 PM) Tania Hawkins DO 6 mg at 11/13/23 2018 acetaminophen 1,000 mg tab(s) (TYLENOL) 1,000 mg ORAL q 8 H PRN Tania Hawkins DO 1,000 mg at 11/13/23 0818 pantoprazole DR 20 mg tab(s) (PROTONIX) 20 mg ORAL DAILY (6 AM) Tania Hawkins DO 20 mg at 11/14/23 0508 NaCl 0.9% iv flush bag 20 mL INTRAVENOUS PRN Tania Hawkins DO LABS : Lab Results Component Value Date/Time WBC 4.29 11/11/2023 04:30 AM WBC 6.75 06/14/2021 11:55 AM RBC 3.48 (L) 11/11/2023 04:30 AM RBC 4.65 06/14/2021 11:55 AM HCT 33.1 (L) 11/11/2023 04:30 AM HCT 41.7 06/14/2021 11:55 AM MCV 95.1 11/11/2023 04:30 AM MCV 89.7 06/14/2021 11:55 AM MCH 30.7 11/11/2023 04:30 AM MCH 29.9 06/14/2021 11:55 AM MCHC 32.3 11/11/2023 04:30 AM MCHC 33.3 06/14/2021 11:55 AM RDWCV 13.3 11/11/2023 04:30 AM RDWCV 13.3 06/14/2021 11:55 AM PLT 146 (L) 11/11/2023 04:30 AM PLT 203 06/14/2021 11:55 AM NEUTP 73.0 11/05/2023 08:44 AM NEUTP 70.3 02/09/2016 03:31 PM LYMPHP 22.0 11/05/2023 08:44 AM LYMPHP 19.3 02/09/2016 (more content not included)... Normal [facility] NUTRITIONon 11-13-2023 NUTRITION HNO ID: [id number] Author: MIMI VAUGHN RD Service: Nutrition Therapy Author Type: Registered Dietitian Type: Nutrition Filed: 11/13/2023 14:11 Note Text: NUTRITION THERAPY INITIAL ASSESSMENT NUTRITION THERAPY: TEACHING DIETITIAN NOTE OF PERSONAL INVOLVEMENT OF CARE. I have reviewed and agree with the assessment as documented by the jewelry internship. I have discussed the case and management of the patient?s nutrition therapy with the jewelry internship. SERVICE DATE: 11/13/2023 SERVICE TIME: 11:00 AM Nutrition Assessment: Recommended Malnutrition Diagnosis: Mild Protein-Calorie Malnutrition In the context of: Acute Illness or Injury Based on: Insufficient Energy Intake Nutrition Diagnosis: Problem: Suboptimal protein/energy intake Related to: Inability to consume sufficient nutrients As evidenced by: Patient/family self-report, Food/nutrition related history (and dislike of hospital food per patient) Care Plan: Continue current diet (Regular) Supplements: Mighty Shake No Sugar Added (daily to trial) Monitor and Evaluation: Meet greater than 75% of estimated needs, Monitor fluid/electrolyte balance, Monitor labs, I/Os, vital signs, weight, Monitor bowel function Discharge Recommendations: Diet Diet: Regular HPI: 73 yo female with history of T2DM, CAD, HTN, and CKD. Patient presented with dysuria, pelvic pain and abdominal pain, and was admitted for a complete heart block. S/P PPM, day 6. Intake History: Nutrition Intake Prior to Admission: Greater than 75% estimated energy needs greater than 7 days Current Nutrition Intake: Less than 75% estimated energy needs Current Intake Over time: Greater than or equal to 7 days (patient does not care for the food here) Dosing Weight: 45.4 kg (100 lb) Dosing Weight Type: Beemer body weight Estimated kilocalorie needs: 1136 - 1590 Calorie Calculation Method: 25-35 kcals/kg Estimated protein needs (grams): 45-55 Grams protein determined by: 1.0 - 1.2 g/kg (monitor renal function, GFR: 56) Diet Orders (From admission, onward) Start Ordered 11/07/23 1645 DIET REGULAR START NOW 11/07/23 1641 Anthropometrics: Height: 152.4 cm (5') Weight: 61.8 kg (136 lb 3.9 oz) Usual Weight: (135-140 lbs) x 1 year Usual Weight Obtained From: Chart Review (and confirmed by patient) Body mass index is 26.61 kg/m?. Weight change percentage over time: Per chart review, pt has lost 2.9% x 1 year Weight Change: Not clinically signficant weight loss Physical Exam: Reason NFPE not performed: Declined Potential micronutrient deficiency: No deficiency identified GI Symptoms: Constipation Potential Signs of Inflammation: Chronic condition, Hyperglycemia, Imaging studies, Microbiologic cultures T2DM, HTN, CKD MNT Billing: $ Initial Assessment: 1-15 minutes SIGNATURE: Catarina Minor Powder Line Repairer PATIENT NAME: Angelica Toribio DATE: November 13, 2023 TIME: 11:00 AM SIGNATURE: Mimi Vaughn RD DATE: November 13, 2023 TIME: 2:10 PM Normal [facility] THERAPY NTon 11-13-2023 THERAPY NT HNO ID: [id number] Author: TANIA RAINES, OTR/L Service: Occupational Therapy Author Type: Occupational Therapist Type: Therapy (PT/OT/Speech/Resp) Filed: 11/13/2023 11:08 Note Text: Occupational Therapy Evaluation Summary SERVICE DATE: 11/13/2023 SERVICE TIME: 0956 to 1041 ROOM: [id number] 6 Clicks Score: 19 DISCHARGE RECOMMENDATIONS Home OT Recommended Discharge Disposition Comments: home with home OT and assist from sig. other for iADLs. Would benefit from SCAT or other transportation services where she lives to assist with getting to appointments Anticipated Discharge Needs: Physical Assist at Home Physical Assist at Home for: Shopping, Transportation, Cleaning, Laundry, Meals ASSESSMENT Response to Therapy Interventions: Good Participation in Activities, Cognitive Deficits, Needs Frequent Redirection or Reinstruction Patient performing functional mobiilty with overall CGA/SBA. Mobilized within room and hallway with and without AD. Patient ambulates steadily throughout. Patient confused at times during session in regards to hospital course and time. Oriented to present to bring awareness to deficits and decrease delirium. Provided education relating to pacemaker precautions and ADLs. Educated on how to perform UB ADLs (dressing, bathing, washing hair) safely within precautions. Educated on how benefits of using shower chair for seated bathing and where to purchase. Educated on iADL management at home and to avoid heavy lifting. PRECAUTIONS Fall Risk, Pacemaker CURRENT HOSPITAL COURSE Patient to hospital on 11/05/23 secondary to worsening pelvic/RLQ pain with SOB. Found to have JEREMIE on CKD with 2nd degree AV block. Underwent pacemaker placement 11/07/23 and is being manged medically while in house. Relevant Past Medical History: anxiety, DM, edema, HTN HOME LIVING Patient Lives With: Significant Other Assistance Available: Part-Time Entry To Home: Stairs Number Of Stairs Into Home: 3 Number Of Stairs To Bed/Bath: 0 Tub/Shower Type: walkin shower Laundry: sig. other can assist Equipment Owned: (none) PRIOR FUNCTIONAL LEVEL Within Functional Limits Patient states she previously lived with boyfriend in 1 [place] home with a few LEONARD. States she was independent with mobility without use of AD for ambulation. Denies falls. Baseline Cognition: Oriented to self, Oriented to place, Oriented to time, Oriented to situation SUBJECTIVE patient pleasant and agreeable to OT. Confused at times COGNITION Orientation Deficits: Confused, Not oriented to Time, Not oriented to Situation Responsiveness: Alert, Awake Follows Commands: 2-step Commands, Cueing Needed Cueing to Follow Commands: Minimum Attention Deficits: Distractible Executive Function Deficits: Judgement, Insight to Deficits, Safety Awareness 4AT Score: (!) 6 (11/13/23) Delirium Positive/Negative: Positive (11/13/23) THERAPY DIAGNOSIS Reduced mobility-other, Decreased activities of daily living (ADL) TREATMENT INTERVENTIONS Evaluation, Self Longterm Management (13811) Timed Code Treatment (minutes): 25 Skilled Treatment Time (minutes): 40 $ Evaluation - Moderate (31386) Billed Units: 1 unit Self Longterm Management (91594) Treatment Minutes: 25 $ Self Longterm Management (95722) Billed Units: 2 units TRAINING AND EDUCATION PROVIDED Activity Adaptation/Compensatory Strategies, Assistive Device Use, Adaptive Equipment/DME, Bed Mobility, Benefits of In-Hospital Mobility, Cognitive Skills, Delirium Reduction Techniques, Discharge Planning, Disease Specific Education, Expected Functional Level, Functional Mobility Involving ADLs, IADLs/Home Management, Precautions/Restrictions, Role of Occupational Therapy, Safety/Judgment, Orientation, Sitting Balance to Improve [place] with ADLs/Self-Care, Standing Balance to Improve [place] with ADLs/Self-Care, Transfer - Sit to Stand, Upper Extremity Dressing THERAPEUTIC SKILLS USED Activity Dosing, Cuing Verbal, Cues for Sequencing/Proper Technique for Activity, Physical Assist, Therapeutic Use of Self, Teach-Back for Education FUNCTIONAL STATUS Activities of Daily Living Assist Level Additional Information Feeding Independent Grooming Set Up Bathing Upper Body Set Up Bathing Lower Body Contact Guard Assistance Dressing Upper Body Contact Guard Assistance Dressing Lower Body Set Up Toileting Contact Guard Assistance Mobility Assist Level Additional Information Bed Mobility Supine To Sit: Stand By Assistance Sit To Supine: Stand By Assistance Sit to Stand Contact Guard Assistance Stand to Sit Contact Guard Assistance Bed to Chair Toilet/Commode Shower Functional Mobility Contact Guard Assistance Functional Mobility Device: None Hand Dominance: Right Range of Motion: ROM Limitation Comments ROM Limitation Comments: R UE WFL , L UE N/T at shoulder due to pacer precautions Strength: Strength Limitation (more content not included)... Normal [facility] CNCOon 11-08-2023 CNCO Letter Text Normal [facility] No Panel Informationon 11-07 BLANK _ [facility] Implant Date 11/07/2023 [facility] PAC[facility] CHECKon AV Delay Adaptive Paced Minimum (ms) 200 ms [facility] AV Delay Adaptive Sensed Minimum (ms) 170 ms [facility] AV Delay Paced (ms) 100 ms [facility] AV Delay Sensed (ms) 85 ms [facility] Chema RA Pacing Amplitude (volts) 3.5 V [facility] Chema RA Pacing Polarity BI [facility] Chema RA Pacing Pulse Width (ms) 0.4 ms [facility] RA Sensing Amplitude (mvolts) 0.25 mV [facility] Chema RA Sensing Polarity BI [facility] Chema RV Pacing Amplitude (volts) 3.5 V [facility] Chema RV Pacing Polarity BI [facility] RV Pacing Pulse Width (ms) 0.4 ms [facility] RV Sensing Amplitude (mvolts) 1.5 mV [facility] Chema RV Sensing Polarity BI [facility] Lead1 Mfg [facility] Lead2 Mfg [facility] Location RA [facility] Location RV [facility] Lower Rate (bpm) 60 {beats}/min [facility] Max Sensor Rate (bmp) 130 {beats}/min [facility] Model L311 ACCOLADE MRI [facility] Model 7841 Ingevity+IS-1 [facility] Model 7842 Ingevity+IS-1 [facility] Pacemaker Dependent? YES [facility] Pacing Mode DDDR [facility] PM-Device Mfg BSX [facility] PM-Percent Pacing (A) 1 % [facility] PM-Percent Pacing (V) 100 % [facility] RA Bipolar Impedance ohms 543 ohm [facility] Rhythm CHB, no R waves @ VVI 40 [facility] RV Bipolar Impedance ohms 764 ohm [facility] Serial Number [id number] [facility] Serial Number [id number] [facility] Serial Number [id number] [facility] Thresh RA Capture Amplitude (volts) 0.5 V [facility] Thresh RA Capture Duration (ms) 0.4 ms [facility] Thresh RV Capture Amplitude (volts) 0.6 V [facility] Thresh RV Capture Duration (ms) 0.4 ms [facility] Thresh RV Sensing Amplitude (mvolts) paced [facility] Tracking Rate (bpm) 130 {beats}/min [facility] PPM check, dual lead system with programming. Patient ID x 2 for PM check 1st day post implant. Left chest gauze/tegaderm drsg intact, no hematoma or drainage noted. Ice sandie on. Presenting rhythm /HOSTESS CASHIER @ 76 ppm; RV pacing 100% of the time. No VT/VF events or mode switch events overnight. Measurements stable; Trend monitoring is on. EGMs without noise. No changes made. Teaching deferred at this time, pt unable to articulate understanding. sklinern NOTE TO PROVIDERS: CARD Flowsheets contain detailed device programming and testing data. Paceart/Interrogation PDF can be found under CARDIAC DATA AND REPORT, Scanned Documents section. PACEART 11/08/2023 Formattin g of this note might be different from the original. PPM check, dual lead system with programming. Patient ID x 2 for PM check 1st day post implant. Left chest gauze/tegaderm drsg intact, no hematoma or drainage noted. Ice sandie on. Presenting rhythm /HOSTESS CASHIER @ 76 ppm; RV pacing 100% of the time. No VT/VF events or mode switch events overnight. Measurements stable; Trend monitoring is on. EGMs without noise. No changes made. Teaching deferred at this time, pt unable to articulate understanding. sklinern NOTE TO PROVIDERS: CARD Flowsheets contain detailed device programming and testing data. Paceart/Interrogation PDF can be found under CARDIAC DATA AND REPORT, Scanned Documents section. [facility] URINE CULTUREon 10-17-2022 Bacteria identified Cx Nom (U) >=100,000 CFU/ml Klebsiella pneumoniae Abnormal [facility] UA DIP, URINE (POC)on 2022 BILIRUBIN UA (POCT) Negative Negative [facility] CLARITY UA (POCT) Cloudy [facility] COLOR UA (POCT) Other [facility] GLUCOSE UA (POCT) Negative Negative mg/dL [facility] HEMOGLOBIN/BLOOD UA (POCT) Trace-intact Abnormal Negative [facility] KETONE UA (POCT) Negative Negative mg/dL [facility] LEUKOCYTES UA (POCT) Small Abnormal Negative [facility] NITRITE UA (POCT) Positive Abnormal Negative [facility] PH UA (POCT) 6.0 4.5 - 8.0 [facility] Protein Ql (U) 100 mg/dL Abnormal Negative mg/dL [facility] SPECIFIC GRAVITY UA (POCT) 1.020 1.005 - 1.030 [facility] UROBILINOGEN UA (POCT) 0.2 E.U./dL Kaycee l E.U./dL [facility] URINE CULTUREon 10-14-2022 Bacteria identified Cx Nom (U) Invalid Interpretation Code [facility] Absolute lymphocyte countOrd ered By: Heidi Lance on 08-11-2022 Lymphocytes Auto (Unsp spec) [#/Vol] 0.93 10*3/uL 0.83-4.51 [facility] Basophil percentageOrdered B y: Heidi Lance on 08-11-2022 Basophil percentage 2.2 mg/dL 2.5-4.9 [facility] Basophils/100 WBC (Bld) 0.5 % 0-1 [facility] Chloride [Moles/Vol] 109 mmol/L 98-107 [facility] Eosinophils/100 WBC (Bld) 2.3 % 0-5 [facility] Glucose [Mass/Vol] 105 mg/dL 74-106 [facility] Comment on above: Fasting Glucose resu lt from 100 to 125 mg/dL suggests IMPAIRED HOMEOSTASIS per A.D.A. criteria. Neutrophils (Bld) [#/Vol] 4.0 10*3/uL 2.0-7.7 [facility] Neutrophils/100 WBC (Bld) 71.5 % 47-70 [facility] Potassium [Moles/Vol] 3.4 mmol/L 3.5-5.1 [facility] Sodium [Moles/Vol] 141 mmol/L 136-145 [facility] WBC (Bld) [#/Vol] 5.6 10*3/uL 4.4-11.0 [facility] Blood erythrocytes count (nu mber/volume)Ordered By: Heidi Lance on 08-11-2022 RBC (Bld) [#/Vol] 3.50 10*6/uL 4.2-5.4 [facility] Blood hemoglobin measurement (mass/volume)Ordered By: Heidi Lance on 08-11-2022 Hemoglobin (Bld) [Mass/Vol] 10.7 g/dL 12.0-15.0 [facility] Blood lymphocytes/100 leukoc ytesOrdered By: Heidi Lance on 08-11-2022 Lymphocytes/100 WBC (Bld) 16.7 % 19-41 [facility] Blood monocytes/100 leukocyt esOrdered By: Heidi Lance on 08-11-2022 Monocytes/100 WBC (Bld) 8.8 % 0-10 [facility] Blood platelet mean volumeOr dered By: Heidi Lance on 08-11-2022 Platelet mean volume (Bld) [Entitic vol] 10.2 fL 6.2-12.0 [facility] Determination of erythrocyte mean corpuscular volume (MCV)Ordered By: Heidi Lance on 08-11-2022 MCV (RBC) [Entitic vol] 93.1 fL 81-99 [facility] Glucose Glucometer (dC) [M ass/Vol]Ordered By: Dr. Sosa on 08-11-2022 Glucose [Mass/Vol] 109 mg/dL 74-106 [facility] Comment on above: MANAGEMENT OF PATIEN T CARE PER NURSING PROTOCOL Hematocrit Auto (Bld) [Volum e fraction]Ordered By: Heidi Lance on 08-11-2022 Hematocrit (Bld) [Volume fraction] 32.6 % 37-47 [facility] Laboratory - Chemistry and C hemistry - challengeOrdered By: Heidi Lance on 08-11-2022 CO2 [Moles/Vol] 22.0 mmol/L 21.0-32.0 [facility] Magnesium [Mass/Vol] 1.9 mg/dL 1.6-2.6 [facility] Urea nitrogen/Creatinine [Mass ratio] 20.7 mg/mg 10-20 [facility] Laboratory - Hematology and Cell countsOrdered By: Heidi Lance on 08-11-2022 Erythrocyte distribution width (RBC) [Entitic vol] 43.7 fL 35.1-43.9 [facility] Erythrocyte distribution width (RBC) [Ratio] 12.9 % 11.6-14.6 [facility] Immature granulocytes/100 WBC (Bld) 0.200 % 0.0-0.9 [facility] Comment on above: IG% - Immature Granu locytes (promyelocytes, myelocytes and metamyelocytes) > 1% indicates that a LEFT SHIFT is Present. MCH (RBC) [Entitic mass] 30.6 pg 27.0-32.0 [facility] Nucleated RBC/100 WBC (Bld) [Ratio] 0 [facility] [Mass/Vol]Or dered By: Heidi Lance on 08-11-2022 MCHC (RBC) [Mass/Vol] 32.8 g/dL 32-36 [facility] No Panel InformationOrdered By: Heidi Lance on 08-11-2022 Estimated Creatinine Clearance Calc 42.60 ml/min [facility] Estimated GFR (MDRD) Amer 82 mL/min >60 [facility] Comment on above: GFR Calc Estimated GFR (MDRD) Non-Af Amer 68 mL/min >60 [facility] Comment on above: Non- GFR Calc Platelets bldOrdered By: Oly Lance on 08-11-2022 Platelets (Bld) [#/Vol] 171 10*3/uL 150-450 [facility] Serum or plasma calcium mina urement (mass/volume)Ordered By: Heidi Lance on 08-11-2022 Calcium [Mass/Vol] 8.5 mg/dL 8.5-10.1 [facility] Serum or plasma creatinine m easurement (mass/volume)Ordered By: Heidi Lance on 08-11-2022 Creatinine [Mass/Vol] 0.87 mg/dL 0.55-1.02 [facility] Comment on above: The validity of the calculated GFR & GFRAA in patients over 70 years has not been determined. Clinical correlation is essential. Serum or plasma urea nitroge n measurement (mass/volume)Ordered By: Heidi Lance on 08-11-2022 Urea nitrogen [Mass/Vol] 18 mg/dL 7-18 [facility] Thin prep Papanicolaou smear with manual screeningOrdered By: Heidi Lance on 08-11-2022 Thin prep Papanicolaou smear with manual screening 10 5-15 [facility] Blood manual differential co mment interpretation (narrative result)Ordered By: Dr. Sosa on 08-09-2022 Manual differential comment Long (Bld) [Interp] SCANNED [facility] Whole blood hemoglobin A1c/t otal hemoglobin ratio (mass fraction)Ordered By: Dr. Drummond on 02-27-2023 HbA1c (Bld) [Mass fraction] 5.8 % 3.8-5.6 [facility] Comment on above: Normal < 5.7 % Predi abetic 5.7 - 6.4 % Diabetic >or= 6.5 % Please note range changes. Absolute lymphocyte countOrd ered By: Dr. Dent on 08-06-2022 Lymphocytes Auto (Unsp spec) [#/Vol] 1.81 10*3/uL 0.83-4.51 [facility] Basophil percentageOrdered B y: Dr. Dent on 08-06-2022 Amylase [Catalytic activity/Vol] 100 U/L 25-115 [facility] Basophils/100 WBC (Bld) 0.5 % 0-1 [facility] Bilirubin [Mass/Vol] 0.60 mg/dL 0.20-1.00 [facility] Comment on above: For patients on eltr ombopag therapy, use of Dimension [place] TBIL is not recommended. Chloride [Moles/Vol] 106 mmol/L 98-107 [facility] Eosinophils/100 WBC (Bld) 2.5 % 0-5 [facility] Glucose [Mass/Vol] 125 mg/dL 74-106 [facility] Comment on above: Fasting Glucose resu lt from 100 to 125 mg/dL suggests IMPAIRED HOMEOSTASIS per A.D.A. criteria. Neutrophils (Bld) [#/Vol] 3.4 10*3/uL 2.0-7.7 [facility] Neutrophils/100 WBC (Bld) 56.9 % 47-70 [facility] Potassium [Moles/Vol] 3.4 mmol/L 3.5-5.1 [facility] Protein [Mass/Vol] 7.2 g/dL 6.4-8.2 [facility] Sodium [Moles/Vol] 140 mmol/L 136-145 [facility] WBC (Bld) [#/Vol] 5.9 10*3/uL 4.4-11.0 [facility] Blood erythrocytes count (nu mber/volume)Ordered By: Dr. Dent on 08-06-2022 RBC (Bld) [#/Vol] 4.12 10*6/uL 4.2-5.4 [facility] Blood hemoglobin measurement (mass/volume)Ordered By: Dr. Dent on 08-06-2022 Hemoglobin (Bld) [Mass/Vol] 12.7 g/dL 12.0-15.0 [facility] Blood lymphocytes/100 leukoc ytesOrdered By: Dr. Dent on 08-06-2022 Lymphocytes/100 WBC (Bld) 30.5 % 19-41 [facility] Blood monocytes/100 leukocyt esOrdered By: Dr. Dent on 08-06-2022 Monocytes/100 WBC (Bld) 9.4 % 0-10 [facility] Blood platelet mean volumeOr dered By: Dr. Dent on 08-06-2022 Platelet mean volume (Bld) [Entitic vol] 10.2 fL 6.2-12.0 [facility] Determination of erythrocyte mean corpuscular volume (MCV)Ordered By: Dr. Dent on 08-06-2022 MCV (RBC) [Entitic vol] 93.0 fL 81-99 [facility] Hematocrit Auto (Bld) [Volum e fraction]Ordered By: Dr. Dent on 08-06-2022 Hematocrit (Bld) [Volume fraction] 38.3 % 37-47 [facility] Laboratory - Chemistry and C hemistry - challengeOrdered By: Dr. Dent on 08-06-2022 ALP [Catalytic activity/Vol] 81 U/L 45-117 [facility] ALT [Catalytic activity/Vol] 24 U/L 13-56 [facility] CO2 [Moles/Vol] 30.0 mmol/L 21.0-32.0 [facility] Globulin (S) [Mass/Vol] 3.6 g/dL 2.2-4.2 [facility] Lipase [Catalytic activity/Vol] 201 U/L 73-393 [facility] Urea nitrogen/Creatinine [Mass ratio] 25.2 mg/mg 10-20 [facility] Laboratory - Hematology and Cell countsOrdered By: Dr. Dent on 08-06-2022 Erythrocyte distribution width (RBC) [Entitic vol] 43.6 fL 35.1-43.9 [facility] Erythrocyte distribution width (RBC) [Ratio] 12.8 % 11.6-14.6 [facility] Immature granulocytes/100 WBC (Bld) 0.200 % 0.0-0.9 [facility] Comment on above: IG% - Immature Granu locytes (promyelocytes, myelocytes and metamyelocytes) > 1% indicates that a LEFT SHIFT is Present. MCH (RBC) [Entitic mass] 30.8 pg 27.0-32.0 [facility] Nucleated RBC/100 WBC (Bld) [Ratio] 0 % 0-5 [facility] MCHC Auto (RBC) [Mass/Vol]Or dered By: Dr. Dent on 08-06-2022 MCHC (RBC) [Mass/Vol] 33.2 g/dL 32-36 [facility] No Panel InformationOrdered By: Dr. Dent on 08-06-2022 Estimated Creatinine Clearance Calc 32.23 ml/min [facility] Estimated GFR (MDRD) Amer 60 mL/min >60 [facility] Comment on above: GFR Calc Estimated GFR (MDRD) Non-Af Amer 49 mL/min >60 [facility] Comment on above: Non- GFR Calc Platelets bldOrdered By: Dr. Dent on 08-06-2022 Platelets (Bld) [#/Vol] 166 10*3/uL 150-450 [facility] Serum or plasma albumin mina urement (mass/volume)Ordered By: Dr. Dent on 08-06-2022 Albumin [Mass/Vol] 3.6 g/dL 3.2-5.0 [facility] Serum or plasma albumin/glob ulin mass ratioOrdered By: Dr. Dent on 08-06-2022 Albumin/Globulin [Mass ratio] 1.0 {ratio} 0.9-2.4 [facility] Serum or plasma calcium mina urement (mass/volume)Ordered By: Dr. Dent on 08-06-2022 Calcium [Mass/Vol] 9.8 mg/dL 8.5-10.1 [facility] Serum or plasma creatinine m easurement (mass/volume)Ordered By: Dr. Dent on 08-06-2022 Creatinine [Mass/Vol] 1.15 mg/dL 0.55-1.02 [facility] Comment on above: The validity of the calculated GFR & GFRAA in patients over 70 years has not been determined. Clinical correlation is essential. Serum or plasma urea nitroge n measurement (mass/volume)Ordered By: Dr. Dent on 08-06-2022 Urea nitrogen [Mass/Vol] 29 mg/dL 7-18 [facility] Thin prep Papanicolaou smear with manual screeningOrdered By: Dr. Dent on 08-06-2022 Thin prep Papanicolaou smear with manual screening 18 U/L 15-37 [facility] Thin prep Papanicolaou smear with manual screening 4 5-15 [facility] URINE CULTUREon 06-30-2022 Bacteria identified Cx Nom (U) >=100,000 CFU/ml Mixed microbiota Abnormal [facility] Urinalysis complete panel (U )on 06-29-2022 Bilirubin Ql (U) Negative Negative [facility] Clarity (Unsp spec) Clear Clear [facility] Color (U) Light Yellow Yellow [facility] Epithelial cells LM.HPF (Urine sed) [#/Area] Few [facility] Glucose Test strip (U) [Mass/Vol] Negative Trace, Negative [facility] Hemoglobin Ql (U) Trace Negative, Trace [facility] Ketones Ql (U) Negative Trace, Negative [facility] Leukocyte esterase Test strip Ql (U) 500 Sylvia/mL Abnormal Negative, 25 Sylvia/mL [facility] Nitrite Ql (U) Negative Negative [facility] pH (U) 6.0 [pH] 5.0 - 8.0 [facility] Protein (U) [Mass/Vol] Trace Trace , Negative [facility] RBC LM.HPF (Urine sed) [#/Area] 0-3 /HPF 0-3 /HPF [facility] Specific gravity (U) [Rel density] 1.012 1.005 - 1.030 [facility] Urobilinogen Ql (U) Negative Negative [facility] WBC LM.HPF (Urine sed) [#/Area] /[HPF] Abnormal 0-5 /HPF [facility] No Panel InformationOrdered By: Nabor Santos on 04-23-2022 Troponin I High Sensitivity 17 pg/mL 3.0-54.0 [facility] Comment on above: Please Note: New Tony t Units and Gender Specific Reference Ranges. For more information see Policy Stat Procedure [place] High Sensitivity Troponin (TNIH) and attachments. Absolute lymphocyte countOrd ered By: Nabor Santos on 04-22-2022 Lymphocytes Auto (Unsp spec) [#/Vol] 1.47 10*3/uL 0.83-4.51 [facility] Basophil percentageOrdered B y: Nabor Santos on 04-22-2022 Basophils/100 WBC (Bld) 0.4 % 0-1 [facility] Chloride [Moles/Vol] 106 mmol/L 98-107 [facility] Eosinophils/100 WBC (Bld) 2.2 % 0-5 [facility] Glucose [Mass/Vol] 304 mg/dL 74-106 [facility] Comment on above: Glucose result great er than or equal to 200 mg/dLsuggests DIABETES MELLITUS per A.D.A. criteria. Neutrophils (Bld) [#/Vol] 3.4 10*3/uL 2.0-7.7 [facility] Neutrophils/100 WBC (Bld) 62.0 % 47-70 [facility] Potassium [Moles/Vol] 3.8 mmol/L 3.5-5.1 [facility] Sodium [Moles/Vol] 141 mmol/L 136-145 [facility] WBC (Bld) [#/Vol] 5.5 10*3/uL 4.4-11.0 [facility] Blood erythrocytes count (nu mber/volume)Ordered By: Nabor Santos on 04-22-2022 RBC (Bld) [#/Vol] 3.90 10*6/uL 4.2-5.4 [facility] Blood hemoglobin measurement (mass/volume)Ordered By: Nabor Santos on 04-22-2022 Hemoglobin (Bld) [Mass/Vol] 11.6 g/dL 12.0-15.0 [facility] Blood lymphocytes/100 leukoc ytesOrdered By: Nabor Santos on 04-22-2022 Lymphocytes/100 WBC (Bld) 26.9 % 19-41 [facility] Blood monocytes/100 leukocyt esOrdered By: Nabor Santos on 04-22-2022 Monocytes/100 WBC (Bld) 8.1 % 0-10 [facility] Blood platelet mean volumeOr dered By: Nabor Santos on 04-22-2022 Platelet mean volume (Bld) [Entitic vol] 10.4 fL 6.2-12.0 [facility] Determination of erythrocyte mean corpuscular volume (MCV)Ordered By: Nabor Santos on 04-22-2022 MCV (RBC) [Entitic vol] 92.6 fL 81-99 [facility] Hematocrit Auto (Bld) [Volum e fraction]Ordered By: Nabor Santos on 04-22-2022 Hematocrit (Bld) [Volume fraction] 36.1 % 37-47 [facility] Laboratory - Chemistry and C hemistry - challengeOrdered By: Nabor Santos on 04-22-2022 CO2 [Moles/Vol] 27.0 mmol/L 21.0-32.0 [facility] Magnesium [Mass/Vol] 2.3 mg/dL 1.6-2.6 [facility] Urea nitrogen/Creatinine [Mass ratio] 22.6 mg/mg 10-20 [facility] Laboratory - Hematology and Cell countsOrdered By: Nabor Santos on 04-22-2022 Erythrocyte distribution width (RBC) [Entitic vol] 45.0 fL 35.1-43.9 [facility] Erythrocyte distribution width (RBC) [Ratio] 13.3 % 11.6-14.6 [facility] Immature granulocytes/100 WBC (Bld) 0.400 % 0.0-0.9 [facility] Comment on above: IG% - Immature Granu locytes (promyelocytes, myelocytes and metamyelocytes) > 1% indicates that a LEFT SHIFT is Present. MCH (RBC) [Entitic mass] 29.7 pg 27.0-32.0 [facility] Nucleated RBC/100 WBC (Bld) [Ratio] 0 % 0-5 [facility] MCHC Auto (RBC) [Mass/Vol]Or dered By: Nabor Santos on 04-22-2022 MCHC (RBC) [Mass/Vol] 32.1 g/dL 32-36 [facility] No Panel InformationOrdered By: Nabor Santos on 04-22-2022 Estimated Creatinine Clearance Calc 27.87 ml/min [facility] Estimated GFR (MDRD) Amer 51 mL/min >60 [facility] Comment on above: GFR Calc Estimated GFR (MDRD) Non-Af Amer 42 mL/min >60 [facility] Comment on above: Non- GFR Calc Platelets bldOrdered By: Aguila Santos on 04-22-2022 Platelets (Bld) [#/Vol] 173 10*3/uL 150-450 [facility] Serum or plasma calcium mina urement (mass/volume)Ordered By: Nabor Santos on 04-22-2022 Calcium [Mass/Vol] 9.1 mg/dL 8.5-10.1 [facility] Serum or plasma creatinine m easurement (mass/volume)Ordered By: Nabor Santos on 04-22-2022 Creatinine [Mass/Vol] 1.33 mg/dL 0.55-1.02 [facility] Comment on above: The validity of the calculated GFR & GFRAA in patients over 70 years has not been determined. Clinical correlation is essential. Serum or plasma urea nitroge n measurement (mass/volume)Ordered By: Nabor Santos on 04-22-2022 Urea nitrogen [Mass/Vol] 30 mg/dL 7-18 [facility] Thin prep Papanicolaou smear with manual screeningOrdered By: Nabor Santos on 04-22-2022 Thin prep Papanicolaou smear with manual screening 8 5-15 [facility] Absolute lymphocyte countOrd ered By: Dr. Hill on 04-11-2022 Lymphocytes Auto (Unsp spec) [#/Vol] 1.33 10*3/uL 0.83-4.51 [facility] Basophil percentageOrdered B y: Dr. Hill on 04-11-2022 Basophils/100 WBC (Bld) 0.6 % 0-1 [facility] Chloride [Moles/Vol] 106 mmol/L 98-107 [facility] Eosinophils/100 WBC (Bld) 2.0 % 0-5 [facility] Glucose [Mass/Vol] 192 mg/dL 74-106 [facility] Comment on above: Fasting Glucose resu lt greater than or equal to 126 mg/dL suggests DIABETES MELLITUS per A.D.A. criteria. Neutrophils (Bld) [#/Vol] 4.5 10*3/uL 2.0-7.7 [facility] Neutrophils/100 WBC (Bld) 69.0 % 47-70 [facility] Potassium [Moles/Vol] 4.2 mmol/L 3.5-5.1 [facility] Sodium [Moles/Vol] 141 mmol/L 136-145 [facility] WBC (Bld) [#/Vol] 6.5 10*3/uL 4.4-11.0 [facility] Blood erythrocytes count (nu mber/volume)Ordered By: Dr. Hill on 04-11-2022 RBC (Bld) [#/Vol] 3.92 10*6/uL 4.2-5.4 [facility] Blood hemoglobin measurement (mass/volume)Ordered By: Dr. Hill on 04-11-2022 Hemoglobin (Bld) [Mass/Vol] 11.8 g/dL 12.0-15.0 [facility] Blood lymphocytes/100 leukoc ytesOrdered By: Dr. Hill on 04-11-2022 Lymphocytes/100 WBC (Bld) 20.3 % 19-41 [facility] Blood monocytes/100 leukocyt esOrdered By: Dr. Hill on 04-11-2022 Monocytes/100 WBC (Bld) 7.6 % 0-10 [facility] Blood platelet mean volumeOr dered By: Dr. Hill on 04-11-2022 Platelet mean volume (Bld) [Entitic vol] 10.0 fL 6.2-12.0 [facility] Determination of erythrocyte mean corpuscular volume (MCV)Ordered By: Dr. Hill on 04-11-2022 MCV (RBC) [Entitic vol] 92.9 fL 81-99 [facility] Hematocrit Auto (Bld) [Volum e fraction]Ordered By: Dr. Hill on 04-11-2022 Hematocrit (Bld) [Volume fraction] 36.4 % 37-47 [facility] Laboratory - Chemistry and C hemistry - challengeOrdered By: Dr. Hill on 04-11-2022 CO2 [Moles/Vol] 29.0 mmol/L 21.0-32.0 [facility] Urea nitrogen/Creatinine [Mass ratio] 20.5 mg/mg 10- [facility] Laboratory - Hematology and Cell countsOrdered By: Dr. Hill on 04-11-2022 Erythrocyte distribution width (RBC) [Entitic vol] 45.2 fL 35.1-43.9 [facility] Erythrocyte distribution width (RBC) [Ratio] 13.4 % 11.6-14.6 [facility] Immature granulocytes/100 WBC (Bld) 0.500 % 0.0-0.9 [facility] Comment on above: IG% - Immature Granu locytes (promyelocytes, myelocytes and metamyelocytes) > 1% indicates that a LEFT SHIFT is Present. MCH (RBC) [Entitic mass] 30.1 pg 27.0-32.0 [facility] Nucleated RBC/100 WBC (Bld) [Ratio] 0 % 0-5 [facility] MCHC Auto (RBC) [Mass/Vol]Or dered By: Dr. Hill on 04-11-2022 MCHC (RBC) [Mass/Vol] 32.4 g/dL 32-36 [facility] No Panel InformationOrdered By: Dr. Hill on 04-11-2022 Estimated Creatinine Clearance Calc 29.18 ml/min [facility] Estimated GFR (MDRD) Amer 53 mL/min >60 [facility] Comment on above: GFR Calc Estimated GFR (MDRD) Non-Af Amer 44 mL/min >60 [facility] Comment on above: Non- GFR Calc Troponin I High Sensitivity 19 pg/mL 3.0-54.0 [facility] Comment on above: Please Note: New Tony t Units and Gender Specific Reference Ranges. For more information see Policy Stat Procedure [place] High Sensitivity Troponin (TNIH) and attachments. Platelets bldOrdered By: Dr. Hill on 04-11-2022 Platelets (Bld) [#/Vol] 192 10*3/uL 150-450 [facility] Serum or plasma calcium mina urement (mass/volume)Ordered By: Dr. Hill on 04-11-2022 Calcium [Mass/Vol] 9.5 mg/dL 8.5-10.1 [facility] Serum or plasma creatinine m easurement (mass/volume)Ordered By: Dr. Hill on 04-11-2022 Creatinine [Mass/Vol] 1.27 mg/dL 0.55-1.02 [facility] Comment on above: The validity of the calculated GFR & GFRAA in patients over 70 years has not been determined. Clinical correlation is essential. Serum or plasma urea nitroge n measurement (mass/volume)Ordered By: Dr. Hill on 04-11-2022 Urea nitrogen [Mass/Vol] 26 mg/dL 7-18 [facility] Thin prep Papanicolaou smear with manual screeningOrdered By: Dr. Hill on 04-11-2022 Thin prep Papanicolaou smear with manual screening 6 5-15 [facility] Vital Signs Date Time Vital Sign Value Performing Clinician Facility 11-18-2024 13:16-0400 Body height 152.[address] Carmen Johnson MD Work Phone: 4(445)754-617151 [place] [address] 11-18-2024 13:16-0400 Body mass index (BMI) [Ratio] 22.2 kg/m2 Dr. Carmen Johnson MD Work Phone: 9(485)707-240451 [place] [address] 11-18-2024 13:16-0400 Body temperature 98.4 [degF] Dr. Carmen Johnson MD Work Phone: 3(906)029-158751 [place] [address] 11-18-2024 13:16-0400 Body weight 51.[address] Carmen Johnson MD Work Phone: 0(318)897-561051 [place] [address] 11-18-2024 13:16-0400 Diastolic blood pressure 88 mm[Hg] Dr. Carmen Johnson MD Work Phone: 3(353)806-586851 [place] [address] 11-18-2024 13:16-0400 Heart rate 81 /min Dr. Carmen Johnson MD Work Phone: 6(073)722-976251 [place] [address] 11-18-2024 13:16-0400 Respiratory rate 16 /min Dr. Carmen Johnson MD Work Phone: 8(822)410-294651 [place] [address] 11-18-2024 13:16-0400 SaO2% (BldA) [Mass fraction] 98 % Dr. Cramen Johnson MD Work Phone: 6(740)750-838851 [place] [address] 11-18-2024 13:16-0400 Systolic blood pressure 144 mm[Hg] Dr. Carmen Johnson MD Work Phone: 7(019)[phone] [place] [address] 09-25-2024 08:46-0400 Body height 152.[address] Carmen Johnson MD Work Phone: [facility] 09-25-2024 08:46-0400 Body mass index (BMI) [Ratio] 22.8 kg/m2 Dr. Carmen Johnson MD Work Phone: [facility] 09-25-2024 08:46-0400 Body temperature 97.8 [degF] Dr. Carmen Johnson MD Work Phone: [facility] 09-25-2024 08:46-0400 Body weight 53.[address] aCrmen Johnson MD Work Phone: [facility] 09-25-2024 08:46-0400 Diastolic blood pressure 78 mm[Hg] Dr. Carmen Johnson MD Work Phone: [facility] 09-25-2024 08:46-0400 Heart rate 81 /min Dr. Carmen Johnson MD Work Phone: [facility] 09-25-2024 08:46-0400 Respiratory rate 18 /min Dr. Carmen Johnson MD Work Phone: [facility] 09-25-2024 08:46-0400 SaO2% (BldA) [Mass fraction] 98 % Dr. Carmen Johnson MD Work Phone: [facility] 09-25-2024 08:46-0400 Systolic blood pressure 132 mm[Hg] Dr. Carmen Johnson MD Work Phone: [facility] 09-20-2024 07:30-0400 Diastolic blood pressure 72 mm[Hg] Ximena Maciel APRN.[employer] Work Phone: [facility] 09-20-2024 07:30-0400 Systolic blood pressure 130 mm[Hg] Ximena Maciel APRN.[employer] Work Phone: [facility] 09-20-2024 07:24-0400 Body mass index (BMI) [Ratio] 21.48 kg/m2 Ximena Maciel APRN.[employer] Work Phone: [facility] 09-20-2024 07:24-0400 Body weight 49.9 kg Ximena Maciel [employer] Work Phone: [facility] 09-20-2024 07:24-0400 Heart rate 80 /min Ximena Maciel [employer] Work Phone: [facility] 09-20-2024 07:24-0400 SaO2% (BldA) [Mass fraction] 99 % Ximena Maciel [employer]PER[employer] Work Phone: [facility] 01-10-2024 14:05-0400 Body mass index (BMI) [Ratio] 25.1 kg/m2 Carmen Johnson MD Work Phone: [facility] 01-10-2024 14:05-0400 Body temperature 98.4 [degF] Carmen Johnson MD Work Phone: [facility] 01-10-2024 14:05-0400 Body weight 58.29 kg Carmen Johnson MD Work Phone: [facility] 01-10-2024 14:05-0400 Diastolic blood pressure 62 mm[Hg] Carmen Johnson MD Work Phone: [facility] 01-10-2024 14:05-0400 Heart rate 88 /min Carmen Johnson MD Work Phone: [facility] 01-10-2024 14:05-0400 Respiratory rate 18 /min Carmen Johnson MD Work Phone: [facility] 01-10-2024 14:05-0400 SaO2% (BldA) [Mass fraction] 99 % Carmen Johnson MD Work Phone: [facility] 01-10-2024 14:05-0400 Systolic blood pressure 136 mm[Hg] Carmen Johnson MD Work Phone: [facility] 12-13-2023 14:34-0400 Body temperature 98.01 [degF] Keisha Westbrook RN Work Phone: [facility] 07-03-2024 14:34-0400 Diastolic blood pressure 64 mm[Hg] Keishavirginia Westbrook RN Work Phone: [facility] 12-13-2023 14:34-0400 Heart rate 80 /min Keishavirginia Westbrook RN Work Phone: [facility] 12-13-2023 14:34-0400 Respiratory rate 16 /min Keishavirginia Westbrook RN Work Phone: [facility] 12-13-2023 14:34-0400 SaO2% (BldA) [Mass fraction] 98 % Keishavirginia Westbrook RN Work Phone: [facility] 12-13-2023 14:34-0400 Systolic blood pressure 128 mm[Hg] Keisha Westbrook RN Work Phone: [facility] 12-11-2023 16:24-0400 Diastolic blood pressure 62 mm[Hg] Carmen Johnson MD Work Phone: [facility] 12-11-2023 16:24-0400 Systolic blood pressure 138 mm[Hg] Carmen Johnson MD Work Phone: [facility] 12-11-2023 15:08-0400 Body mass index (BMI) [Ratio] 25.76 kg/m2 Carmen Johnson MD Work Phone: [facility] 12-11-2023 15:08-0400 Body temperature 97.5 [degF] Carmen Johnson MD Work Phone: [facility] 12-11-2023 15:08-0400 Body weight 59.83 kg Carmen Johnson MD Work Phone: [facility] 12-11-2023 15:08-0400 Heart rate 101 /min Carmen Johnson MD Work Phone: [facility] 12-11-2023 15:08-0400 Respiratory rate 18 /min Carmen Johnson MD Work Phone: [facility] 12-11-2023 15:08-0400 SaO2% (BldA) [Mass fraction] 100 % Carmen Johnson MD Work Phone: [facility] 11-23-2023 13:01-0400 Body temperature 98.49 [degF] Keisha Westbrook RN Work Phone: [facility] 11-23-2023 13:01-0400 Diastolic blood pressure 76 mm[Hg] Keisha Westbrook RN Work Phone: [facility] 11-23-2023 13:01-0400 Heart rate 88 /min Keisha Westbrook RN Work Phone: [facility] 11-23-2023 13:01-0400 Respiratory rate 16 /min Keisha Westbrook RN Work Phone: [facility] 11-23-2023 13:01-0400 SaO2% (BldA) [Mass fraction] 99 % Keisha Westbrook RN Work Phone: [facility] 11-23-2023 13:01-0400 Systolic blood pressure 142 mm[Hg] Keisha Westbrook RN Work Phone: [facility] 11-20-2023 14:53-0400 Body mass index (BMI) [Ratio] 28.71 kg/m2 Evelin Martinez RN Work Phone: [facility] 11-20-2023 14:53-0400 Body temperature 99 [degF] Evelin Martinez RN Work Phone: [facility] 11-20-2023 14:53-0400 Body weight 66.68 kg Evelin Martinez RN Work Phone: [facility] 11-20-2023 14:53-0400 Diastolic blood pressure 64 mm[Hg] Evelin Martinez RN Work Phone: [facility] 11-20-2023 14:53-0400 Heart rate 73 /min Evelin Martinez RN Work Phone: [facility] 11-20-2023 14:53-0400 Respiratory rate 18 /min Evelin Martinez RN Work Phone: [facility] 11-20-2023 14:53-0400 SaO2% (BldA) [Mass fraction] 99 % Evelin Martinez RN Work Phone: [facility] 11-20-2023 14:53-0400 Systolic blood pressure 168 mm[Hg] Evelin Martinez RN Work Phone: [facility] 10-14-2022 16:40-0400 Body temperature 99.19 [degF] Carmen Johnson MD Work Phone: [facility] 10-14-2022 16:40-0400 Body weight 63.5 kg Carmen Johnson MD Work Phone: [facility] 10-14-2022 16:40-0400 Diastolic blood pressure 68 mm[Hg] Carmen Johnson MD Work Phone: [facility] 10-14-2022 16:40-0400 Heart rate 61 /min Carmen Johnson MD Work Phone: [facility] 10-14-2022 16:40-0400 Respiratory rate 18 /min Carmen Johnson MD Work Phone: [facility] 10-14-2022 16:40-0400 SaO2% (BldA) [Mass fraction] 98 % Carmen Johnson MD Work Phone: [facility] 10-14-2022 16:40-0400 Systolic blood pressure 124 mm[Hg] Carmen Johnson MD Work Phone: [facility] 08-17-2022 10:46-0500 Body temperature 97.81 [degF] Carmen Johnson MD Work Phone: [facility] 08-17-2022 10:46-0500 Body weight 61.69 kg Carmen Johnson MD Work Phone: [facility] 08-17-2022 10:46-0500 Diastolic blood pressure 68 mm[Hg] Carmen Johnson MD Work Phone: [facility] 08-17-2022 10:46-0500 Heart rate 55 /min Carmen Johnson MD Work Phone: [facility] 08-17-2022 10:46-0500 Respiratory rate 18 /min Carmen Johnson MD Work Phone: [facility] 08-17-2022 10:46-0500 SaO2% (BldA) [Mass fraction] 100 % Carmen Johnson MD Work Phone: [facility] 08-17-2022 10:46-0500 Systolic blood pressure 128 mm[Hg] Carmen Johnson MD Work Phone: [facility] 08-11-2022 14:52-0500 Body temperature 98 [degF] Dr. Carmen Johnson Work Phone: [facility] 08-11-2022 14:52-0500 Diastolic blood pressure 73 mm[Hg] Dr. Carmen Johnson Work Phone: [facility] 08-11-2022 14:52-0500 Heart rate 77 /min Dr. Carmen Johnson Work Phone: [facility] 08-11-2022 14:52-0500 Respiratory rate 18 /min Dr. Carmen Johnson Work Phone: [facility] 08-11-2022 14:52-0500 SaO2% (BldA) [Mass fraction] 98 % Dr. Carmen Johnson Work Phone: [facility] 08-11-2022 14:52-0500 Systolic blood pressure 143 mm[Hg] Dr. Carmen Johnson Work Phone: [facility] 08-09-2022 08:03-0500 Body height 152.[address] Carmen Johnson Work Phone: [facility] 08-09-2022 08:03-0500 Body weight 65.[address] Carmen Johnson Work Phone: [facility] 08-09-2022 07:51-0500 Inhaled oxygen flow rate 2 L/min Dr. Carmen Johnson Work Phone: [facility] 08-07-2022 10:07-0500 Body mass index (BMI) [Ratio] 28.1 kg/m2 Dr. Carmen Johnson Work Phone: [facility] 08-06-2022 06:13-0500 Diastolic blood pressure 68 mm[Hg] [facility] 08-06-2022 06:13-0500 Heart rate 90 /min [facility] 08-06-2022 06:13-0500 Respiratory rate 18 /min [facility] 08-06-2022 06:13-0500 SaO2% (BldA) [Mass fraction] 99 % [facility] 08-06-2022 06:13-0500 Systolic blood pressure 154 mm[Hg] [facility] 08-06-2022 06:00-0500 Body temperature 97.2 [degF] [facility] 08-06-2022 03:30-0500 Body height 152.4 cm [facility] 08-06-2022 03:30-0500 Body mass index (BMI) [Ratio] 29.5 kg/m2 [facility] 08-06-2022 03:30-0500 Body weight 68.6 kg [facility] 06-14-2022 16:03-0500 Body temperature 96.69 [degF] Carmen Johnson MD Work Phone: [facility] 06-14-2022 16:03-0500 Body weight 64.86 kg Carmen Johnson MD Work Phone: [facility] 06-14-2022 16:03-0500 Diastolic blood pressure 70 mm[Hg] Carmen Johnson MD Work Phone: [facility] 06-14-2022 16:03-0500 Heart rate 68 /min Carmen Johnson MD Work Phone: [facility] 06-14-2022 16:03-0500 Respiratory rate 18 /min Carmen Johnson MD Work Phone: [facility] 06-14-2022 16:03-0500 SaO2% (BldA) [Mass fraction] 98 % Carmen Johnson MD Work Phone: [facility] 06-14-2022 16:03-0500 Systolic blood pressure 132 mm[Hg] Carmen Johnson MD Work Phone: [facility] 05-13-2022 10:02-0500 Body temperature 98.71 [degF] Carmen Johnson MD Work Phone: [facility] 05-13-2022 10:02-0500 Body weight 64.18 kg Carmen Johnson MD Work Phone: [facility] 05-13-2022 10:02-0500 Diastolic blood pressure 80 mm[Hg] Carmen Johnson MD Work Phone: [facility] 05-13-2022 10:02-0500 Heart rate 78 /min Carmen Johnson MD Work Phone: [facility] 05-13-2022 10:02-0500 Respiratory rate 16 /min Carmen Johnson MD Work Phone: [facility] 05-13-2022 10:02-0500 SaO2% (BldA) [Mass fraction] 100 % Carmen Johnson MD Work Phone: [facility] 05-13-2022 10:02-0500 Systolic blood pressure 130 mm[Hg] Carmen Johnson MD Work Phone: [facility] 04-23-2022 00:28-0500 Diastolic blood pressure 70 mm[Hg] [facility] 04-23-2022 00:28-0500 Heart rate 74 /min [facility] 04-23-2022 00:28-0500 Respiratory rate 15 /min [facility] 04-23-2022 00:28-0500 SaO2% (BldA) [Mass fraction] 98 % [facility] 04-23-2022 00:28-0500 Systolic blood pressure 149 mm[Hg] [facility] 04-22-2022 21:50-0500 Body height 152.4 cm [facility] Work Phone: 04-22-2022 21:50-0500 Body mass index (BMI) [Ratio] 29.6 kg/m2 [facility] 04-22-2022 21:50-0500 Body temperature 98.1 [degF] [facility] 04-22-2022 21:50-0500 Body weight 68.9 kg [facility] 04-12-2022 00:20-0400 Body temperature 98.2 [degF] [facility] 04-12-2022 00:20-0400 Diastolic blood pressure 80 mm[Hg] [facility] 04-12-2022 00:20-0400 Heart rate 66 /min [facility] 04-12-2022 00:20-0400 Respiratory rate 18 /min [facility] 04-12-2022 00:20-0400 SaO2% (BldA) [Mass fraction] 97 % [facility] 04-12-2022 00:20-0400 Systolic blood pressure 157 mm[Hg] [facility] 04-11-2022 22:23-0400 Body height 152.4 cm [facility] Work Phone: 04-11-2022 22:23-0400 Body mass index (BMI) [Ratio] 29.9 kg/m2 [facility] 04-11-2022 22:23-0400 Body weight 69.4 kg [facility] 02-15-2022 17:32-0400 Body weight 66.22 kg Carmen Johnson MD Work Phone: [facility] 02-15-2022 17:32-0400 Diastolic blood pressure 82 mm[Hg] Carmen Johnson MD Work Phone: [facility] 02-15-2022 17:32-0400 Heart rate 60 /min Carmen Johnson MD Work Phone: [facility] 02-15-2022 17:32-0400 SaO2% (BldA) [Mass fraction] 96 % Carmen Johnson MD Work Phone: [facility] 02-15-2022 17:32-0400 Systolic blood pressure 138 mm[Hg] Carmen Johnson MD Work Phone: [facility] 10-12-2021 10:10-0400 Body weight 69.4 kg Carmen Johnson MD Work Phone: [facility] 10-12-2021 10:10-0400 Diastolic blood pressure 82 mm[Hg] Carmen Johnson MD Work Phone: [facility] 10-12-2021 10:10-0400 Heart rate 76 /min Carmen Johnson MD Work Phone: [facility] 10-12-2021 10:10-0400 Systolic blood pressure 124 mm[Hg] Carmen Johnson MD Work Phone: [facility] Encounters Encounter Date Encounter Type Care Provider Facility Start: 11-18-2024 End: 11-18-[address] Carmen Johnson MD Work Phone: [facility] Work Phone: Start: 11-18-2024 End: 11-18-[address] Gill Velez MD -[facility] Start: 11-18-2024 End: 11-18-[address] Gill Velez MD -[facility] Work Phone: Start: 11-18-2024 End: 11-18-[address] Carmen Johnson MD Work Phone: [facility] Work Phone: Start: 11-18-2024 End: 11-18-2024 ambulatory Gill Velez Facility:[facility] Start: 11-08-2024 End: 11-08-2024 Telephone encounter Ximena Maciel APRN.CNP Work Phone: [facility] Cardiology [place] Comment on above: Patient Question Start: 10-15-2024 End: 10-15-2024 Refill Ryan Kamara Work Phone: Internal Medicine [place] Comment on above: Refill Request Start: 09-25-2024 Encounter for genera l adult medical examination without abnormal findings Ryan Kamara [facility] Start: 09-25-2024 End: 09-25-[address] Carmen Johnson MD Work Phone: [facility] Work Phone: Start: 09-25-2024 End: 09-25-2024 Patient encounter procedure Ryan DIAS -Laboratory, [place] Start: 09-25-[address] Marium Johnson MD Work Phone: [facility] Start: 09-25-2024 End: 09-25-2024 Patient encounter procedure Ryan DIAS [facility] Internal Medicine Work Phone: Start: 09-25-2024 End: 09-25-2024 ambulatory Carmen Johnson Facility:[facility] Start: 09-25-2024 End: 09-25-2024 ambulatory Ryan Kamara Facility:[facility] Start: 09-20-2024 End: 09-20-2024 Patient encounter procedure Ximena Maciel APRN.CNP Work Phone: [facility] Cardiology [place] Comment on above: Encounter for care o f pacemaker (Primary Dx); Mobitz type II atrioventricular block; Sinoatrial node dysfunction (HCC); Moderate mitral valve stenosis Start: 09-20-2024 End: 09-20-2024 ambulatory SELF Facility:[facility] Start: 09-17-2024 End: 10-18-2024 ambulatory Carmen Johnson MD Work Phone: [facility] [place] Start: 09-17-2024 End: 09-17-2024 Telephone encounter Noman Orozco MD Work Phone: [facility] Cardiology [place] Comment on above: Cardiac Clearance Start: 09-02-2024 End: 09-04-2024 ambulatory [facility] [place] Start: 09-02-2024 End: 09-04-2024 Patient encounter procedure Betty [facility] [place] Comment on above: Population Health Na vigation Outreach [facility] Start: 08-30-2024 End: 09-03-2024 ambulatory CARMEN JOHNSON Facility:[place] [facility] Start: 08-30-2024 End: 09-03-2024 Professional / ancillary services management Noman Orozco MD Work Phone: [facility] Start: 08-30-2024 End: 09-03-2024 Follow-up encounter Noman Orozco MD Work Phone: [facility] Comment on above: Remote Pacemaker Fol low Up Start: 08-30-2024 End: 08-30-2024 Patient encounter procedure Rem Device Ck [facility] Start: 08-01-2024 End: 08-01-2024 ambulatory Betty Lyons [facility] [place] Start: 08-01-2024 End: 08-01-2024 Patient encounter procedure Betty Lyons [facility] [place] Comment on above: Population Health Na vigation Outreach (ROHAN BRAMBILA PCSShad) Population Health Na vigation Outreach ( ); Opened In Error Start: 07-31-2024 End: 07-31-2024 Telephone encounter Noman Orozco MD Work Phone: [facility] [place] Start: 07-18-2024 End: 07-19-2024 Refill Carmen Johnson MD Work Phone: [facility] [place] Comment on above: Refill Request Start: 07-01-2024 End: 07-01-2024 ambulatory Betty Lyons [facility] [place] Start: 07-01-2024 End: 07-01-2024 Patient encounter procedure Betty Lyons MA [facility] [place] Comment on above: Population Health Na vigation Outreach (ROHAN BRAMBILA PCSA) Start: 05-21-2024 End: 05-21-2024 Professional / ancillary services management Noman Orozco MD Work Phone: [facility] Start: 05-21-2024 End: 05-21-2024 ambulatory CRAMEN Kingsley MARTINEZAMPAS Facility:[facility] [place] [facility] Start: 05-21-2024 End: 05-21-2024 Follow-up encounter Noman Orozco MD Work Phone: [facility] Comment on above: Remote Pacemaker Fol low Up Start: 05-21-2024 End: 05-21-2024 Patient encounter procedure Rem Device Ck [facility] Start: 04-12-2024 End: 05-08-2024 Telephone encounter Noman Orozco MD Work Phone: [facility] [place] Comment on above: Patient Question Start: 01-10-2024 End: 01-10-2024 Office outpatient visit 40 minutes Carmen Johnson MD Work Phone: Internal Medicine [place] Comment on above: Primary Hypertension (Primary Dx); Bilateral lower extremity edema; Anemia, unspecified type; S/P cardiac pacemaker procedure; Anxiety state Start: 01-10-2024 End: 01-10-2024 [facility] Start: 01-08-2024 Telephone encounter Carmen garcia MD Work Phone: Internal Medicine [place] Comment on above: Patient Update; Medi cation Question Start: 01-07-2024 End: 01-08-2024 Emergency department patient visit CARMEN JOHNSON Facility:[facility] Start: 01-03-2024 Telephone encounter Carmen garcia MD Work Phone: Internal Medicine [place] Comment on above: Patient Question Start: 01-02-2024 Follow-up encounter Noman Orozco MD Work Phone: [facility] Start: 01-02-2024 End: 01-02-2024 Patient encounter procedure Device Clinic [facility] Comment on above: Permanent Pacemaker Start: 01-02-2024 End: 01-02-2024 ambulatory CARMEN D TALAMPAS Facility:[facility] Start: 12-13-2023 End: 12-13-2023 Home visit Keisha Westbrook RN Work Phone: [facility] Comment on above: SN AGENCY DC W VISIT Start: 12-12-2023 Refill Carmen cramer MD Work Phone: Internal Medicine [place] Comment on above: Refill Request Start: 12-11-2023 End: 12-11-2023 ambulatory CARMEN D JUANAMPAS Facility:[facility] Start: 12-11-2023 End: 12-11-2023 Subsequent hospital visit by physician Xr Count Includes [facility] [place] Work Phone: Radiology Comment on above: Lung nodule seen on imaging study [R91.1] Start: 12-11-2023 End: 12-11-2023 Office outpatient visit 25 minutes Carmen Johnson MD Work Phone: [facility] [place] Comment on above: Type 2 diabetes loretta itus with stage 3a chronic kidney disease, without long-term current use of insulin (HCC) (Primary Dx); Hypoglycemia; Primary Hypertension; Bilateral lower extremity edema; Vitamin D deficiency; Lung nodule seen on imaging study; Renal insufficiency; Anxiety state Start: 12-11-2023 End: 12-11-2023 ambulatory CARMEN D ALEX Facility:[facility] Start: 12-06-2023 Telephone encounter Zoie Hayes RN Work Phone: [facility] Comment on above: Home Care (FYI; Pt m issed visit today. Not home) Start: 12-06-2023 End: 12-06-2023 Home visit Zoie Hayes RN Work Phone: [facility] Comment on above: SN UNMADE VISIT Start: 12-04-2023 Refill Carmen cramer MD Work Phone: Internal Medicine [place] Comment on above: Refill Request Start: 11-29-2023 Telephone encounter Carmen garcia MD Work Phone: [facility] [place] Comment on above: Appointment Start: 11-28-2023 Telephone encounter Carmen garcia MD Work Phone: Internal Medicine [place] Comment on above: Call From ER (Dr. Diogenes montanez) Start: 11-28-2023 End: 11-28-2023 Emergency department patient visit CARMEN JOHNSON Facility:[facility] Start: 11-24-2023 Telephone encounter Alvaro arechiga ADMINISTRATIVE RESOURCES ASSOCIATE Work Phone: [facility] Comment on above: Home Care Start: 11-24-2023 End: 11-24-2023 Home visit Alvaro Medina ADMINISTRATIVE RESOURCES ASSOCIATE Work Phone: [facility] Comment on above: ASSISTANT PRODUCTION EDITOR CARE COORDINATIO N Start: 11-23-2023 Telephone encounter Evelin harris RN Work Phone: [facility] Start: 11-23-2023 End: 11-23-2023 Home visit Alvaro Medina ADMINISTRATIVE RESOURCES ASSOCIATE Work Phone: [facility] Comment on above: ASSISTANT PRODUCTION EDITOR CARE COORDINATIO N SN ROUTINE Start: 11-22-2023 ambulatory Yu Mannnig RN Work Phone: [employer] Start: 11-22-2023 End: 11-22-2023 Home visit Alvaro Medina ADMINISTRATIVE RESOURCES ASSOCIATE Work Phone: [facility] Comment on above: ASSISTANT PRODUCTION EDITOR CARE COORDINATIO N Transition Of Care ( Fabric nonresponse single outreach) Start: 11-21-2023 End: 11-21-2023 Home visit Alvaro RANKINW Work Phone: [facility] Comment on above: ASSISTANT PRODUCTION EDITOR CARE COORDINATIO N SN UNMADE VISIT Start: 11-20-2023 ambulatory Neelam corral MD Work Phone: [facility] Comment on above: Encounter for medica l assessment (Primary Dx) Start: 11-20-2023 Patient encounter status Terry Elizabeth MD Work Phone: [facility] Work Phone: Start: 11-20-2023 End: 11-20-2023 Refill Carmen Johnson MD Work Phone: Internal Medicine [place] Comment on above: Refill Request Home Care (Hypertens abril) SN SOC Start: 11-20-2023 Telemedicine consult ation with patient Neelam Elizabeth MD Work Phone: [facility] Start: 11-19-2023 Telephone encounter Evelin harris RN Work Phone: [facility] Comment on above: Home Care Arrangemen ts Start: 11-17-2023 End: 11-17-2023 Patient Outreach Yu Manning RN Work Phone: [employer] Comment on above: Transition Of Care ( Fabric nonresponse single outreach) SN UNMADE VISIT Homecare Home Longterm Care (Delay in care) Start: 11-16-2023 End: 11-16-2023 ambulatory Natacha (Rn) Dafne RN NURSE IMPRESS ASSOCIATE Comment on above: Information Start: 11-16-2023 Telephone encounter Carmen garcia MD Work Phone: [facility] Comment on above: Home Care (SOC Confi rmation (today)) Start: 11-16-2023 End: 11-16-2023 Telemedicine consultation with patient Nurse Card Ag [place] [facility] Work Phone: [facility] [place] Start: 11-15-2023 Telephone encounter Israel putnam Work Phone: [facility] Comment on above: Home Care (Confirmat ion Call ) Start: 11-14-2023 Telephone encounter Erna adamson CROSS CUT SAW OPERATOR Work Phone: [facility] Comment on above: Home Care ( to vanda presley ) Start: 11-08-2023 Follow-up encounter [facility] Provider [facility] NOT LISTED Start: 11-08-2023 Patient encounter procedure [facility] Provider [place] [facility] NOT LISTED Start: 11-08-2023 Telephone encounter Ximena parra APRN.LACQUER [employer]ATER Work Phone: [facility] Comment on above: Wound Check; Appoint ment Start: 10-18-2023 ambulatory Carmen cramer MD Work Phone: [facility] [place] Start: 10-02-2023 Refill Carmen cramer MD Work Phone: [facility] Comment on above: Refill Request Start: 09-27-2023 Telephone encounter Carmen garcia MD Work Phone: [facility] Comment on above: medication refill Start: 09-23-2023 Refill Lissett Chavezgabriella Kulkarni PRN.CNP Work Phone: [facility] Comment on above: Refill Request Start: 01-24-2023 Refill Carmen cramer MD Work Phone: Internal [facility] Comment on above: Refill Request Start: 12-02-2022 Refill Carmen cramer MD Work Phone: [facility] Comment on above: Refill Request Start: 11-09-2022 ambulatory Carmen cramer MD Work Phone: Internal [facility] Start: 10-22-2022 Refill Verena Marsha PSS 4C Ins titute Comment on above: Refill Request Start: 10-14-2022 End: 10-14-2022 Office outpatient visit 40 minutes Carmen Johnson MD Work Phone: [facility] Comment on above: 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 (HCC) (Primary Dx); Exudative age-related macular degeneration of right eye, unspecified stage (HCC); Acute cystitis with hematuria; Essential hypertension; Cloudy urine; Bad odor of urine; Vitamin D deficiency; Mixed hyperlipidemia Start: 09-22-2022 Refill Carmen cramer MD Work Phone: [facility] Comment on above: Refill Request Start: 08-17-2022 End: 08-17-2022 Office outpatient visit 15 minutes Carmen Johnson MD Work Phone: [facility] Comment on above: Intestinal adhesions with complete obstruction (HCC) (Primary Dx); S/P laparoscopy; Impacted cerumen of right ear Start: 08-11-2022 Non-patient / Non-visit Dr. Cuca Johnson Work Phone: [facility] Start: 08-11-2022 Non-patient / Non-visit Dr. Cuca Johnson Work Phone: [facility] Start: 08-10-2022 Non-patient / Non-visit Dr. Cuca Johnson Work Phone: [facility] Start: 08-10-2022 Non-patient / Non-visit Dr. Cuca Johnson Work Phone: [facility] Start: 08-09-2022 Non-patient / Non-visit Dr. Cuca Johnson Work Phone: [facility] Start: 08-08-2022 Non-patient / Non-visit Dr. Cuca Johnson Work Phone: [facility] Start: 08-07-2022 Non-patient / Non-visit Dr. Cuca Johnson Work Phone: [facility] Start: 08-07-2022 Non-patient / Non-visit Dr. Cuca Johnson Work Phone: [facility] Start: 08-06-2022 End: 08-11-2022 Evaluation and management of inpatient [facility] Start: 08-06-2022 Evaluation and manag ement of inpatient [facility] 3 Start: 08-06-2022 Non-patient / Non-visit Dr. Cuca Johnson Work Phone: [facility] Start: 07-06-2022 ambulatory Betty Lyons [facility] [place] Comment on above: Population Health Na vigation Outreach ([facility]) Start: 07-06-2022 Telephone encounter Carmen garcia MD Work Phone: [facility] [place] Comment on above: Results Start: 06-30-2022 Telephone encounter Carmen garcia MD Work Phone: [facility] [place] Comment on above: Results Start: 06-14-2022 End: 06-14-2022 Office outpatient visit 25 minutes Carmen Johnson MD Work Phone: [facility] [place] Comment on above: Foul smelling urine (Primary Dx); Type 2 diabetes mellitus with stage 3a chronic kidney disease, without long-term current use of insulin (HCC); Vitamin D deficiency; Leg cramping Start: 05-17-2022 Telephone encounter Carmen garcia MD Work Phone: [facility] [place] Comment on above: Forms Start: 05-13-2022 End: 05-13-2022 Office outpatient visit 25 minutes Carmen Johnson MD Work Phone: [facility] [place] Comment on above: 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 (HCC) (Primary Dx); Essential hypertension; Atypical chest pain; Vitamin D deficiency; Gastroesophageal reflux disease without esophagitis; Colon cancer screening Start: 04-22-2022 End: 04-23-2022 Emergency department patient visit [facility] Start: 04-11-2022 End: 04-12-2022 Emergency department patient visit [facility] Start: 03-28-2022 End: 03-28-2022 Nursing evaluation of patient and report Mi Nurse Work Phone: [facility] Comment on above: Need for vaccination (Primary Dx) Start: 03-18-2022 Telephone encounter Carmen garcia MD Work Phone: Internal [facility] [place] Comment on above: Medical Clearance Start: 02-15-2022 End: 02-15-2022 Office outpatient visit 25 minutes Carmen Johnson MD Work Phone: [facility] [place] Comment on above: Type 2 diabetes loretta itus with chronic kidney disease, without long-term current use of insulin, unspecified CKD stage (HCC) (Primary Dx); Vitamin D deficiency; Essential hypertension; Mixed hyperlipidemia; Cramping of feet; Exudative age-related macular degeneration of right eye, unspecified stage (HCC) Start: 01-13-2022 Refill Carmen cramer MD Work Phone: [facility] [place] Comment on above: Refill Request Start: 12-08-2021 ambulatory Carmen cramer MD Work Phone: [facility] [place] Start: 10-12-2021 End: 10-12-2021 Office outpatient visit 25 minutes Carmen Johnson MD Work Phone: [facility] [place] Comment on above: Type 2 diabetes loretta itus 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, unspecified whether longitudinal float operator insulin use (HCC) (Primary Dx); Primary Hypertension; 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 (HCC); Vitamin D deficiency; Type 2 diabetes mellitus with stage 3a chronic kidney disease, without long-term current use of insulin ([facility]); Mixed hyperlipidemia; Microalbuminuria due to type 2 diabetes mellitus ([facility]) Procedures Date Procedure Procedure Detail Performing Clinician Start: 09-25-2024 Vitamin D, 25-hydrox y measurement Dr. Carmen Johnson MD Work Phone: Comment on above: Vitamin D StatusDefi ciency: <20 ng/mL (50nmol/L)Insufficiency: 20-30 ng/mL (50-75 nmol/L)Sufficiency: 30-100 ng/mL (75-250 nmol/L)Toxicity: >100 ng/mL (>250 nmol/L) Start: 09-20-2024 Ecg routine ecg w/le ast 12 lds w/i&r Ximena Maciel WAREHOUSE OPERATIONS ASSOCIATE.LACQUER [employer]ATER Work Phone: Start: 08-30-2024 PACEMAKER REMOTE CHECK Noman Orozco MD Work Phone: Start: 05-21-2024 PACEMAKER REMOTE CHECK Noman Orozco MD Work Phone: Start: 01-02-2024 PACEMAKER CLINIC CHECK Noman Orozco MD Work Phone: Start: 12-11-2023 Radiologic exam ches t 2 views Carmen Johnson MD Work Phone: Start: 11-08-2023 PACEMAKER CLINIC CHECK [facility] Provider Start: 10-14-2022 Culture bacterial quanttative colony count urine Carmen Johnson MD Work Phone: Start: 10-14-2022 Urnls dip stick/tabl et rgnt auto w/o microscopy Carmen Johnson MD Work Phone: Start: 08-10-2022 Diagnostic radiograp hy of abdomen Dr. Carmen Johnson Work Phone: Start: 08-08-[address] Carmen zelaya Work Phone: Start: 08-08-2022 Plain X-ray abdomen Dr. Carmen Johnson Work Phone: Start: 08-06-[address] Carmen Johnson Work Phone: Start: 08-06-2022 Plain X-ray abdomen Dr. Carmen Johnson Work Phone: Start: 08-06-2022 Computed tomography of abdomen and pelvis with intravenous contrast Start: 04-22-2022 Plain chest X-ray Start: 04-11-2022 Plain chest X-ray Start: 04-11-2022 CT cervical spine without contrast Start: 04-11-2022 CT of head without contrast Start: 03-28-2022 PFIZER-BIONTECH COVI D-19 BIVALENT BOOSTER VACCINE, AGE 12+ YR Carmen Johnson MD Work Phone: Start: 03-02-2016 Mammography Carmen justice MD Work Phone: Plan of Treatment Date Care Activity Detail Author Start: 09-24-2025 End: 09-24-2025 Patient encounter procedure 09/24/2025 11:40 AM EDT Office Visit [facility] [place] [address] [place], [place] [phone] Noman Orozco MD [address] [phone] Annual follow up. kh [facility] [place] Comment on above: Annual follow up. Start: 09-16-2025 Glaucoma screening Dilated Retinal Exam [facility] Start: 08-30-2025 Glaucoma screening Dilated Retinal Exam [facility] Start: 03-11-2025 End: 03-11-2025 Patient encounter procedure [facility] Comment on above: bsc pm/sv/snd Start: 01-09-2025 Annual PCP Team Chronic Disease Visit Annual PCP Team Chronic Disease Visit [facility] Start: 01-06-2025 Complete blood count Hemoglobin/Hematocrit [facility] Start: 01-06-2025 Creatinine measurement Serum Creatinine [facility] Start: 01-03-2025 Glaucoma screening Dilated Retinal Exam [facility] Start: 12-12-2024 BP Controlled (<130/80) BP Controlled (<130/80) [facility] Start: 12-10-2024 Annual PCP Team Chronic Disease Visit Annual PCP Team Chronic Disease Visit [facility] Start: 12-06-2024 End: 12-06-2024 Patient encounter procedure [facility] Comment on above: bsc pm/sv/snd-yearly Start: 11-27-2024 Complete blood count Hemoglobin/Hematocrit [facility] Start: 11-27-2024 Creatinine measurement Serum Creatinine [facility] Start: 11-18-2024 Basic metabolic 2008 panel with ionized calcium - Serum or Plasma [facility] Start: 11-18-2024 CBC W Auto Differential panel - Blood [facility] Start: 11-18-2024 Patient referral [facility] Work Phone: Start: 11-10-2024 Complete blood count Hemoglobin/Hematocrit [facility] Start: 11-10-2024 Creatinine measurement Serum Creatinine [facility] Start: 11-07-2024 Complete blood count Hemoglobin/Hematocrit [facility] Start: 11-07-2024 Creatinine measurement Serum Creatinine [facility] Start: 11-06-2024 End: 11-06-2024 Patient encounter procedure 11/06/2024 9:40 AM EDT Office Visit [facility] [place] [address] [place] [address] Noman Orozco MD [address] [place] [address] [place] [phone] 1 year follow up [facility] [place] Comment on above: 1 year follow up Start: 09-25-2024 Patient referral [facility] Work Phone: Start: 09-20-2024 End: 09-20-2024 Patient encounter procedure 09/20/2024 7:30 AM EDT Office Visit [facility] [place] [address] [place], [place] [phone] Ximena Maciel APRN.LACQUER COATER [address] [place] [address] 1 year follow up [facility] [place] Comment on above: 1 year follow up Start: 09-10-2024 Glaucoma screening Dilated Retinal Exam [facility] Start: 08-30-2024 End: 08-30-2024 Patient encounter procedure 08/30/2024 8:00 AM EDT Procedure [facility] [address] [place], [place] [id number] bsc pm remote/ dr V/ sx chema [facility] Comment on above: bsc pm remote/ dr V/ sx chema Start: 07-31-2024 Glaucoma screening Dilated Retinal Exam [facility] Start: 07-19-2024 End: 10-18-2024 25-hydroxyvitamin D3 [Mass/volume] in Serum or Plasma VITAMIN D 25 HYDROXY Lab Routine Vitamin D deficiency Type 2 diabetes mellitus with stage 3a chronic kidney disease, without long-term current use of insulin (HCC) Encounter for long-term current use of medication Expected: 07/19/2024, Expires: 10/18/2024 [facility] Comment on above: Expected: 07/19/2024, Expires: Start: 07-19-2024 End: 10-18-2024 CBC panel - Blood by Automated count COMPLETE BLOOD COUNT Lab Routine Essential hypertension Type 2 diabetes mellitus with stage 3a chronic kidney disease, without long-term current use of insulin (HCC) Encounter for long-term current use of medication Expected: 07/19/2024, Expires: 10/18/2024 [facility] Comment on above: Expected: 07/19/2024, Expires: Start: 07-19-2024 End: 10-18-2024 Comprehensive metabolic 2000 panel - Serum or Plasma COMPREHENSIVE METABOLIC PANEL Lab Routine Essential hypertension Type 2 diabetes mellitus with stage 3a chronic kidney disease, without long-term current use of insulin (HCC) Encounter for long-term current use of medication Expected: 07/19/2024, Expires: 10/18/2024 [facility] Comment on above: Expected: 07/19/2024, Expires: Start: 07-19-2024 End: 10-18-2024 Hemoglobin A1c in Blood HEMOGLOBIN A1C Lab Routine Type 2 diabetes mellitus with stage 3a chronic kidney disease, without long-term current use of insulin (HCC) Encounter for long-term current use of medication Expected: 07/19/2024, Expires: 10/18/2024 [facility] Work Phone: Comment on above: Expected: 07/19/2024, Expires: Start: 07-19-2024 End: 10-18-2024 Lipid 1996 panel - Serum or Plasma LIPID PANEL BASIC Lab Routine Essential hypertension Type 2 diabetes mellitus with stage 3a chronic kidney disease, without long-term current use of insulin (HCC) Encounter for long-term current use of medication Expected: 07/19/2024, Expires: 10/18/2024 [facility] Comment on above: Expected: 07/19/2024, Expires: Start: 07-19-2024 End: 10-18-2024 Magnesium [Mass/volume] in Serum or Plasma MAGNESIUM Lab Routine Encounter for long-term current use of medication Expected: 07/19/2024, Expires: 10/18/2024 [facility] Comment on above: Expected: 07/19/2024, Expires: Start: 06-25-2024 End: 06-25-2024 Patient encounter procedure 06/25/2024 3:20 PM EST Office Visit Internal Medicine [address] [address] [place] [address] Carmen Johnson MD [address] [place] [address] 6 month follow up Internal Medicine [facility] Comment on above: 6 month follow up Start: 06-12-2024 Advance Directive Discussion Advance Directive Discussion [facility] Start: 05-21-2024 End: 05-21-2024 Patient encounter procedure 05/21/2024 8:00 AM EST Procedure [facility] [address] [facility] [place] [address] pm/bsci/sv [facility] Comment on above: pm/bsci/sv Start: 05-10-2024 Hemoglobin A1c measurement HbA1C [facility] Start: 05-07-2024 Hemoglobin A1c measurement HbA1C [facility] Start: 03-22-2024 End: 03-22-2024 Patient encounter procedure 03/22/2024 8:00 AM EDT Procedure [facility] [place] [address] bscpm/sv/sndys [facility] Comment on above: bscpm/sv/sndys Start: 02-14-2024 End: 02-14-2024 Patient encounter procedure 02/14/2024 4:00 PM EDT Office Visit Internal Medicine [facility] [address] [place] [address] Carmen Johnson MD [address] [place] [address] 1 month follow up Internal Medicine [facility] Comment on above: 1 month follow up Start: 02-11-2024 Covid-19 Vaccine () Covid-19 Vaccine () [facility] Start: 02-11-2024 Covid-19 Vaccine () Covid-19 Vaccine () [facility] Start: 01-31-2024 End: 05-01-2024 CBC panel - Blood by Automated count COMPLETE BLOOD COUNT Lab Routine Anemia, unspecified type Expected: 01/31/2024 (Approximate), Expires: 05/01/2024 [facility] Comment on above: Expected: 01/31/2024 (Approximate), Expi res: 05/01/2024 Start: 01-31-2024 End: 05-01-2024 Cobalamin (Vitamin B12) [Mass/volume] in Serum or Plasma VITAMIN B12 Lab Routine Anemia, unspecified type Expected: 01/31/2024 (Approximate), Expires: 05/01/2024 [facility] Comment on above: Expected: 01/31/2024 (Approximate), Expi res: 05/01/2024 Start: 01-31-2024 End: 05-01-2024 Comprehensive metabolic 2000 panel - Serum or Plasma COMPREHENSIVE METABOLIC PANEL Lab Routine Primary Hypertension Expected: 01/31/2024 (Approximate), Expires: 05/01/2024 [facility] Work Phone: Comment on above: Expected: 01/31/2024 (Approximate), Expi res: 05/01/2024 Start: 01-31-2024 End: 05-01-2024 Ferritin [Mass/volume] in Serum or Plasma FERRITIN Lab Routine Anemia, unspecified type Expected: 01/31/2024 (Approximate), Expires: 05/01/2024 [facility] Comment on above: Expected: 01/31/2024 (Approximate), Expi res: 05/01/2024 Start: 01-31-2024 End: 05-01-2024 Folate [Mass/volume] in Serum or Plasma FOLATE, SERUM Lab Routine Anemia, unspecified type Expected: 01/31/2024 (Approximate), Expires: 05/01/2024 [facility] Comment on above: Expected: 01/31/2024 (Approximate), Expi res: 05/01/2024 Start: 01-31-2024 End: 05-01-2024 Iron and Iron binding capacity panel - Serum or Plasma IRON AND TIBC Lab Routine Anemia, unspecified type Expected: 01/31/2024 (Approximate), Expires: 05/01/2024 [facility] Comment on above: Expected: 01/31/2024 (Approximate), Expi res: 05/01/2024 Start: 01-24-2024 End: 01-24-2024 Patient encounter procedure 01/24/2024 2:20 PM EDT Office Visit Internal Medicine [place] [address] [place] [address] Lissett Devries APRN.LACQUER COATER [address] [place] [address] 6-8 week follow up [facility] [place] Comment on above: 6-8 week follow up Start: 01-10-2024 End: 01-10-2024 Patient encounter procedure 01/10/2024 2:20 PM EDT Office Visit Internal Medicine [facility] [address] [place], [place] [id number] Carmen Johnson MD [address] [place] [address] [facility] F/U 01/07/2024; Chest Pain [facility] [place] Comment on above: [facility] F/U 01/07/2024; Chest Pain Start: 01-01-2024 End: 04-01-2024 25-hydroxyvitamin D3 [Mass/volume] in Serum or Plasma VITAMIN D 25 HYDROXY Lab Routine Vitamin D deficiency Expected: 01/01/2024 (Approximate), Expires: 04/01/2024 [facility] Comment on above: Expected: 01/01/2024 (Approximate), Expi res: 04/01/2024 Start: 01-01-2024 End: 04-01-2024 CBC panel - Blood by Automated count COMPLETE BLOOD COUNT Lab Routine Primary Hypertension Renal insufficiency Expected: 01/01/2024 (Approximate), Expires: 04/01/2024 [facility] Comment on above: Expected: 01/01/2024 (Approximate), Expi res: 04/01/2024 Start: 01-01-2024 End: 04-01-2024 Comprehensive metabolic 2000 panel - Serum or Plasma COMPREHENSIVE METABOLIC PANEL Lab Routine Hypoglycemia Primary Hypertension Vitamin D deficiency Renal insufficiency Expected: 01/01/2024 (Approximate), Expires: 04/01/2024 [facility] Work Phone: Comment on above: Expected: 01/01/2024 (Approximate), Expi res: 04/01/2024 Start: 12-21-2023 End: 12-21-2023 Patient encounter procedure 12/21/2023 1:00 PM EDT Procedure [facility] [address] [place] [address] new dual ppm-6 WEEK CHK/BSX/Vitebskiy [facility] Comment on above: new dual ppm-6 WEEK CHK/BSX/Vitebskiy Start: 12-13-2023 End: 12-13-2023 Patient encounter procedure 12/13/2023 10:00 AM EDT Appointment [facility] [address] [place] [address] Keisha Westbrook RN [address] [place] [id number] - MDobbins - s/p pacemaker, HTN, medication compliance, UTI - vs more visits [facility] Comment on above: [id number] - MDobbins - s/p pacemaker, HTN, m edication compliance, UTI - vs more visits Start: 12-08-2023 End: 12-08-2023 Patient encounter procedure [facility] [place] Comment on above: [facility] follow up 11/27 for hypoglycemia Start: 12-07-2023 Urine microalbumin profile [facility] Start: 12-06-2023 End: 12-06-2023 Home visit [facility] Comment on above: [id number] - MDobbins - s/p pacemaker, HTN, m edication compliance, UTI - NOMNC Start: 12-01-2023 End: 12-01-2023 Home visit 12/01/2023 9:00 AM EDT Home Care Visit [facility] [address] [place] [address] Keisha Westbrook RN [address] [place] [id number] - MDobbins - s/p pacemaker, HTN, medication compliance, UTI [facility] Comment on above: [id number] - MDobbins - s/p pacemaker, HTN, m edication compliance, UTI Start: 11-28-2023 End: 11-28-2023 Home visit [facility] Comment on above: [id number] - MDobbins - s/p pacemaker, HTN, m edication compliance, UTI Start: 11-23-2023 End: 11-23-2023 Home visit [facility] Comment on above: [id number] - MDobbins - s/p pacemaker, HTN, m edication compliance, UTI Start: 11-21-2023 End: 11-21-2023 Home visit [facility] Comment on above: [id number] MSWE 11/19-11/23 - ADD TO CARE [id number] - MDobbins - s /p pacemaker, HTN, medication compliance, UTI - BP Monitoring Start: 11-20-2023 End: 11-20-2023 Patient encounter procedure [facility] Comment on above: [id number] CM [id number] 6/10 [place] Atrioventric ular block, complete [id number] CM [id number] 6/10 [place] Atrioventricular block, complete Can assign to Keisha Westbrook Start: 11-17-2023 End: 11-17-2023 Patient encounter procedure [facility] Comment on above: [id number] CM [id number] 6/5 [place] Atrioventricu lar block, complete Start: 11-16-2023 Hepatitis C antibody, confirmatory test DILATED RETINAL EXAM [facility] Start: 11-16-2023 End: 11-16-2023 ambulatory 11/16/2023 1:00 PM EDT [facility] [address] [place], [place] [id number] Wound Check - [phone] [facility] Comment on above: Wound Check - [phone] Start: 10-15-2023 ANNUAL PCP TEAM CHRONIC DISEASE VISIT ANNUAL PCP TEAM CHRONIC DISEASE VISIT [facility] Start: 10-15-2023 BP CONTROLLED (<130/80) BP CONTROLLED (<130/80) [facility] in Start: 10-09-2023 End: 10-09-2023 Patient encounter procedure 10/09/2023 10:40 AM EDT Office Visit Internal Medicine [place] [address] [place] [id number] Lissett Devries APRN.LACQUER COATER [address] [place] [address] Follow Up Internal Medicine [place] Comment on above: Follow Up Start: 08-18-2023 ANNUAL PCP TEAM CHRONIC DISEASE VISIT ANNUAL PCP TEAM CHRONIC DISEASE VISIT [facility] Start: 08-18-2023 BP CONTROLLED (<130/80) BP CONTROLLED (<130/80) [facility] inic Start: 06-28-2023 Complete blood count Hemoglobin/Hematocrit [facility] Start: 06-28-2023 Creatinine measurement Serum Creatinine [facility] Start: 06-28-2023 HEMOGLOBIN/HEMATOCRIT HEMOGLOBIN/HEMATOCRIT [facility] Start: 06-28-2023 Hepatitis B surface antibody level LDL CHOLESTEROL [facility] Start: 06-28-2023 SERUM CREATININE SERUM CREATININE [facility] Start: 06-14-2023 ANNUAL PCP TEAM CHRONIC DISEASE VISIT ANNUAL PCP TEAM CHRONIC DISEASE VISIT [facility] Start: 06-12-2023 Advance Directive Discussion Advance Directive Discussion [facility] Start: 05-16-2023 Hepatitis C antibody, confirmatory test DILATED RETINAL EXAM [facility] Start: 05-13-2023 ANNUAL PCP TEAM CHRONIC DISEASE VISIT ANNUAL PCP TEAM CHRONIC DISEASE VISIT [facility] Start: 05-13-2023 PNEUMOCOCCAL: 65+ (1 - PCV) PNEUMOCOCCAL: 65+ (1 - PCV) [facility] Comment on above: Postponed from 1957 (Declined at t his time) Start: 02-15-2023 ANNUAL PCP TEAM CHRONIC DISEASE VISIT ANNUAL PCP TEAM CHRONIC DISEASE VISIT [facility] Start: 02-14-2023 End: 04-16-2023 25-hydroxyvitamin D3 [Mass/volume] in Serum or Plasma VITAMIN D 25 HYDROXY Lab Routine Vitamin D deficiency Expected: 02/14/2023 (Approximate), Expires: 04/16/2023 [facility] Work Phone: Comment on above: Expected: 02/14/2023 (Approximate), Expi res: 04/16/2023 Start: 02-14-2023 End: 04-16-2023 ALBUMIN/CREAT RATIO RND UR ALBUMIN/CREAT RATIO RND UR Lab Routine 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 (HCC) Expected: 02/14/2023 (Approximate), Expires: 04/16/2023 [facility] Work Phone: Comment on above: Expected: 02/14/2023 (Approximate), Expi res: 04/16/2023 Start: 02-14-2023 End: 04-16-2023 CBC panel - Blood by Automated count CBC Lab Routine Essential hypertension Expected: 02/14/2023 (Approximate), Expires: 04/16/2023 [facility] Work Phone: Comment on above: Expected: 02/14/2023 (Approximate), Expi res: 04/16/2023 Start: 02-14-2023 End: 04-16-2023 Comprehensive metabolic 2000 panel - Serum or Plasma COMP METABOLIC PANEL Lab Routine 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 (HCC) Essential hypertension Expected: 02/14/2023 (Approximate), Expires: 04/16/2023 [facility] Work Phone: Comment on above: Expected: 02/14/2023 (Approximate), Expi res: 04/16/2023 Start: 02-14-2023 End: 04-16-2023 Hemoglobin A1c in Blood HGB A1C Lab Routine 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 (HCC) Expected: 02/14/2023 (Approximate), Expires: 04/16/2023 [facility] Work Phone: Comment on above: Expected: 02/14/2023 (Approximate), Expi res: 04/16/2023 Start: 02-14-2023 End: 04-16-2023 Lipid 1996 panel - Serum or Plasma LIPID PANEL BASIC Lab Routine Mixed hyperlipidemia Expected: 02/14/2023 (Approximate), Expires: 04/16/2023 [facility] Work Phone: Comment on above: Expected: 02/14/2023 (Approximate), Expi res: 04/16/2023 Start: 02-10-2023 Covid-19 Vaccine () Covid-19 Vaccine () [facility] Start: 02-10-2023 Hepatitis B screening URINE ALBUMIN:CREATININE RATIO [facility] Start: 02-10-2023 Hepatitis B surface antibody level LDL CHOLESTEROL [facility] Start: 02-10-2023 SERUM CREATININE SERUM CREATININE [facility] Start: 12-26-2022 Hemoglobin A1c measurement HbA1C [facility] Start: 12-26-2022 Hemoglobin A1c/Hemoglobin.total in Blood HBA1C [facility] Start: 10-12-2022 ANNUAL PCP TEAM CHRONIC DISEASE VISIT ANNUAL PCP TEAM CHRONIC DISEASE VISIT [facility] Start: 10-08-2022 HEMOGLOBIN/HEMATOCRIT HEMOGLOBIN/HEMATOCRIT [facility] Start: 10-08-2022 Hepatitis B screening URINE ALBUMIN:CREATININE RATIO [facility] Start: 10-08-2022 Hepatitis B surface antibody level LDL CHOLESTEROL [facility] Start: 10-08-2022 SERUM CREATININE SERUM CREATININE [facility] Start: 08-30-2022 Hepatitis C antibody, confirmatory test DILATED RETINAL EXAM [facility] Start: 08-11-2022 Patient discharge [facility] Start: 08-10-2022 Hemoglobin A1c/Hemoglobin.total in Blood HBA1C [facility] Start: 08-10-2022 Nil by mouth [facility] Start: 08-09-2022 [facility] Start: 08-09-2022 [facility] Start: 08-07-2022 Laparoscopy Diagnostic Laparoscopy (Not Applicable) [facility] Start: 08-06-2022 End: 08-07-2022 [facility] Start: 08-06-2022 Application of intermittent pneumatic compression device [facility] Start: 08-06-2022 Consultation [facility] Start: 08-06-2022 Insertion of nasogastric tube [facility] Start: 08-06-2022 Aspiration precautions [facility] Start: 08-06-2022 Elevation of head of bed [facility] Start: 08-06-2022 Admission procedure [facility] Start: 08-06-2022 Following clinical pathway protocol [facility] Start: 08-06-2022 Verification routine [facility] Start: 08-06-2022 Insertion of nasogastric tube [facility] Start: 08-06-2022 Notification of physician [facility] Start: 08-06-2022 Fall prevention [facility] Start: 08-06-2022 Introduction of urinary catheter [facility] Start: 08-06-2022 Oxygen therapy [facility] Start: 08-06-2022 Referral to occupational therapist [facility] Start: 08-06-2022 Referral to service [facility] Start: 08-06-2022 [facility] Start: 08-06-2022 Plain X-ray abdomen Abdomen Single View (Portable) [facility] Start: 08-06-2022 XR Abdomen Single view [facility] Start: 08-06-2022 Patient referral to dietitian [facility] Start: 07-29-2022 COVID-19 VACCINE (5 - Pfizer series) COVID-19 VACCINE (5 - Pfizer series) [facility] Start: 07-02-2022 End: 09-01-2022 Bacteria identified in Urine by Culture URINE CULTURE Microbiology Routine Foul smelling urine Expected: 07/02/2022, Expires: 09/01/2022 [facility] Work Phone: Comment on above: Expected: 07/02/2022, Expires: 3 Start: 07-02-2022 End: 09-01-2022 Urinalysis complete panel - Urine URINALYSIS, WITH MICROSCOPIC Lab Routine Foul smelling urine Expected: 07/02/2022, Expires: 09/01/2022 [facility] Work Phone: Comment on above: Expected: 07/02/2022, Expires: 3 Start: 06-21-2022 3 comp foot exam completed DIABETIC FOOT EXAM [facility] Start: 06-21-2022 BP CONTROLLED (<130/80) BP CONTROLLED (<130/80) [facility] Start: 06-21-2022 Diabetic foot examination Diabetic Foot Exam [facility] Start: 06-12-2022 End: 08-12-2022 25-hydroxyvitamin D3 [Mass/volume] in Serum or Plasma VITAMIN D 25 HYDROXY Lab Routine Vitamin D deficiency Expected: 06/12/2022 (Approximate), Expires: 08/12/2022 [facility] Work Phone: Comment on above: Expected: 06/12/2022 (Approximate), Expi res: 08/12/2022 Start: 06-12-2022 ADVANCE DIRECTIVE DISCUSSION ADVANCE DIRECTIVE DISCUSSION [facility] Start: 06-12-2022 End: 08-12-2022 CBC panel - Blood by Automated count CBC Lab Routine Essential hypertension Type 2 diabetes mellitus with chronic kidney disease, without long-term current use of insulin, unspecified CKD stage (HCC) Expected: 06/12/2022 (Approximate), Expires: 08/12/2022 [facility] Work Phone: Comment on above: Expected: 06/12/2022 (Approximate), Expi res: 08/12/2022 Start: 06-12-2022 End: 08-12-2022 Comprehensive metabolic 2000 panel - Serum or Plasma COMP METABOLIC PANEL Lab Routine Essential hypertension Type 2 diabetes mellitus with chronic kidney disease, without long-term current use of insulin, unspecified CKD stage (HCC) Expected: 06/12/2022 (Approximate), Expires: 08/12/2022 [facility] Work Phone: Comment on above: Expected: 06/12/2022 (Approximate), Expi res: 08/12/2022 Start: 06-12-2022 End: 08-12-2022 Hemoglobin A1c in Blood HGB A1C Lab Routine Type 2 diabetes mellitus with chronic kidney disease, without long-term current use of insulin, unspecified CKD stage (HCC) Expected: 06/12/2022 (Approximate), Expires: 08/12/2022 [facility] Work Phone: Comment on above: Expected: 06/12/2022 (Approximate), Expi res: 08/12/2022 Start: 06-12-2022 End: 08-12-2022 Lipid 1996 panel - Serum or Plasma LIPID PANEL BASIC Lab Routine Mixed hyperlipidemia Type 2 diabetes mellitus with chronic kidney disease, without long-term current use of insulin, unspecified CKD stage (HCC) Expected: 06/12/2022 (Approximate), Expires: 08/12/2022 [facility] Work Phone: Comment on above: Expected: 06/12/2022 (Approximate), Expi res: 08/12/2022 Start: 04-09-2022 Hemoglobin A1c/Hemoglobin.total in Blood HBA1C [facility] Start: 02-16-2022 COLORECTAL CANCER SCREENING COLORECTAL CANCER SCREENING [facility] Comment on above: Postponed from 01/12/1996 (Declined at t his time) Start: 02-12-2022 End: 04-14-2022 25-hydroxyvitamin D3 [Mass/volume] in Serum or Plasma VITAMIN D 25 HYDROXY Lab Routine Vitamin D deficiency Expected: 02/12/2022 (Approximate), Expires: 04/14/2022 [facility] Work Phone: Comment on above: Expected: 02/12/2022 (Approximate), Expi res: 04/14/2022 Start: 02-12-2022 End: 04-14-2022 ALBUMIN/CREAT RATIO RND UR ALBUMIN/CREAT RATIO RND UR Lab Routine Microalbuminuria due to type 2 diabetes mellitus (HCC) Expected: 02/12/2022 (Approximate), Expires: 04/14/2022 [facility] Work Phone: Comment on above: Expected: 02/12/2022 (Approximate), Expi res: 04/14/2022 Start: 02-12-2022 End: 04-14-2022 CBC panel - Blood by Automated count CBC Lab Routine Primary Hypertension Expected: 02/12/2022 (Approximate), Expires: 04/14/2022 [facility] Work Phone: Comment on above: Expected: 02/12/2022 (Approximate), Expi res: 04/14/2022 Start: 02-12-2022 End: 04-14-2022 Comprehensive metabolic 2000 panel - Serum or Plasma COMP METABOLIC PANEL Lab Routine Type 2 diabetes mellitus 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, unspecified whether longitudinal float operator insulin use (HCC) Primary Hypertension Microalbuminuria due to type 2 diabetes mellitus (HCC) Expected: 02/12/2022 (Approximate), Expires: 04/14/2022 [facility] Work Phone: Comment on above: Expected: 02/12/2022 (Approximate), Expi res: 04/14/2022 Start: 02-12-2022 End: 04-14-2022 Hemoglobin A1c in Blood HGB A1C Lab Routine Type 2 diabetes mellitus 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, unspecified whether longitudinal float operator insulin use (HCC) Expected: 02/12/2022 (Approximate), Expires: 04/14/2022 [facility] Work Phone: Comment on above: Expected: 02/12/2022 (Approximate), Expi res: 04/14/2022 Start: 02-12-2022 End: 04-14-2022 Lipid 1996 panel - Serum or Plasma LIPID PANEL BASIC Lab Routine Mixed hyperlipidemia Expected: 02/12/2022 (Approximate), Expires: 04/14/2022 [facility] Work Phone: Comment on above: Expected: 02/12/2022 (Approximate), Expi res: 04/14/2022 Start: 12-16-2021 COVID-19 VACCINE (4 - Booster for Pfizer series) COVID-19 VACCINE (4 - Booster for Pfizer series) [facility] Start: 10-11-2021 COVID-19 VACCINE (4 - Booster for Pfizer series) COVID-19 VACCINE (4 - Booster for Pfizer series) [facility] Start: 03-02-2017 Mammography MAMMOGRAM [facility] Start: 03-02-2017 Screening for malignant neoplasm of breast Mammogram Screening [facility] Start: 2011 RSV Vaccine (1 - 1-dose 60+ series) RSV Vaccine (1 - 1-dose 60+ series) [facility] Start: 2011 RSV Vaccine (1 - Risk 60-74 years 1-dose series) RSV Vaccine (1 - Risk 60-74 years 1-dose series) [facility] Start: 01-12-1996 COLOGUARD (FIT-DNA) COLOGUARD (FIT-DNA) [facility] Start: 01-12-1996 Colonoscopy COLONOSCOPY [facility] Start: 01-12-1996 COLORECTAL CANCER SCREENING COLORECTAL CANCER SCREENING [facility] Start: 01-12-[address] COLONOGRAPHY [facility] Start: 01-12-1996 FECAL OCCULT BLOOD FECAL OCCULT BLOOD [facility] Start: 01-12-1996 Screening for malignant neoplasm of colon [facility] Start: 01-12-1996 SIGMOIDOSCOPY SIGMOIDOSCOPY [facility] Start: 1970 Pneumococcal Vaccine: 50+ (1 of 2 - PCV) Pneumococcal Vaccine: 50+ (1 of 2 - PCV) [facility] Start: 1957 Pneumococcal Vaccine: 65+ (1 of 2 - PCV) Pneumococcal Vaccine: 65+ (1 of 2 - PCV) [facility] Start: 1957 PNEUMOCOCCAL: 65+ (1 - PCV) PNEUMOCOCCAL: 65+ (1 - PCV) [facility] Anion gap in Serum o r Plasma [facility] Bilirubin measuremen t, urine [facility] BUN/Creatinine ratio [facility] Calcium [Mass/volume ] in Serum or Plasma [facility] Carbon dioxide, tota l [Moles/volume] in Central venous blood [facility] COLOGUARD COLOGUARD Lab Ro utine Colon cancer screening Ordered: 05/13/2022 [facility] Work Phone: Comment on above: Ordered: 05/13/2022 Creatinine [Mass/vol ume] in Serum or Plasma [facility] End: 10-17-2025 DBT Breast - bilateral screening SEEMA SCREENING W [facility] Radiology Routine Encounter for screening mammogram for breast cancer 1 Occurrences starting 09/17/2024 until 10/17/2025 [facility] Work Phone: Comment on above: 1 Occurrences starting 09/17/2024 until 10/17/2025 Erythrocyte mean corpuscular volume determination [facility] Glucose [Mass/volume ] in Serum or Plasma [facility] Hematocrit [Volume Fraction] of Blood [facility] Hemoglobin [Mass/vol ume] in Blood [facility] Hemoglobin [Presence ] in Urine [facility] Leukocytes [#/volume ] in Blood [facility] Magnesium [Mass/volu me] in Serum or Plasma [facility] End: 12-09-2023 SEEMA SCREENING SEEMA SCREENING Radiology Routine Encounter for screening mammogram for breast cancer 1 Occurrences starting 11/09/2022 until 12/09/2023 [facility] Work Phone: Comment on above: 1 Occurrences starting 11/09/2022 until 12/09/2023 Mean corpuscular hemoglobin concentration determination [facility] Mean corpuscular hemoglobin determination [facility] Measurement of keton es in urine using dipstick [facility] Measurement of occul t blood in stool specimen using immunoassay [facility] Measurement of renal function [facility] MG Breast - bilatera l Screening [facility] End: 11-16-2024 MG Breast Screening SEEMA SCREENING Radiology Routine Encounter for screening mammogram for breast cancer 1 Occurrences starting 10/18/2023 until 11/16/2024 [facility] Work Phone: Comment on above: 1 Occurrences starting 10/18/2023 until 11/16/2024 Microscopic urinalysis [facility] Neutrophil count [facility] Neutrophil percent differential count [facility] Patient Education [place] Work Phone: Patient referral [facility] Work Phone: pH of Urine [facility] Platelets [#/volume] in Blood [facility] Potassium measurement [facility] Red blood cell count [facility] Red cell distributio n width determination [facility] End: 01-07-2023 Screening mammography bi 2-view breast inc cad SEEMA SCREENING Radiology Routine Encounter for screening mammogram for breast cancer 1 Occurrences starting 12/08/2021 until 01/07/2023 [facility] Work Phone: Comment on above: 1 Occurrences starting 12/08/2021 until 01/07/2023 Serum chloride measurement [facility] Sodium measurement [facility] Specific gravity of Urine [facility] Urea nitrogen [Mass/volume] in Serum or Plasma [facility] Urinalysis, blood, qualitative [facility] Urine dipstick for glucose [facility] Urine dipstick for leukocyte esterase [facility] Urine dipstick for nitrite [facility] Urine dipstick for protein [facility] Urine examination [place] Urine microscopy: epithelial cells [facility] Urine Microscopy: wh ite cells [facility] Urobilinogen [Presen ce] in Urine [facility] Immunizations Immunization Date Immunization Notes Care Provider Laura burk 03-28-2022 COVID-19 booster vaccine, age 12+ yr, bivalent (PFIZER-BIONTECH) Nh Nurse Work Phone: [facility] Work Phone: 08-16-2021 Covid (Pfizer) Dr. Carmen roldan MD Work Phone: [facility] 08-16-2021 COVID-19 vaccine, ag e 12+ yr (PFIZER-BIONTECH - [facility]) Carmen Johnson MD Work Phone: [facility] Work Phone: 03-09-2021 COVID-19 vaccine, ag e 12+ yr (PFIZER-BIONTECH - PURPLE TOP) Carmen Johnson MD Work Phone: [facility] 02-16-2021 COVID-19 vaccine, ag e 12+ yr (PFIZER-BIONTECH - PURPLE TOP) Carmen Johnson MD Work Phone: [facility] 12-06-2013 tetanus toxoid, redu donald diphtheria toxoid, and acellular pertussis vaccine, adsorbed Carmen Johnson MD Work Phone: [facility] 05-31-2011 tuberculin skin test ; purified protein derivative solution, intradermal Carmen Johnson MD Work Phone: [facility] 05-24-2011 tuberculin skin test ; purified protein derivative solution, intradermal Carmen Johnson MD Work Phone: [facility] Payers Date Payer Category Payer Self-pay [id number] 2016 Medicare MEDICARE MEDICAR E A AND B [id number] 2016-Present [phone] [address] [address] [place] [address] Medicare [id number] 2016 Medicare [id number] 2016 Medicare [id number] Unknown [id number] Unknown [id number] Unknown [id number] Unknown [id number] Social History Date Type Detail Facility Start: 11-19-2010 End: 11-18-2024 Tobacco smoking status NHIS Never smoked tobacco [facility] Start: 06-21-2021 End: 09-20-2024 Alcohol intake Current non-drinker of alcohol (finding) [facility] Start: 1950 Sex Assigned At Not on file [facility] Start: 10-02-2021 End: 05-13-2022 Exposure to SARS-CoV-2 (event) Not sure [facility] Start: 11-19-2010 Tobacco use and exposure Smokeless tobacco non-user [facility] Work Phone: Start: 02-27-2022 End: 03-09-2022 Exposure to SARS-CoV-2 (event) Unable to assess [facility] Work Phone: Start: 04-11-2022 End: 08-06-2022 Tobacco smoking status NHIS Unknown if ever smoked [facility] Start: 03-03-2019 None [place] Start: 03-03-2019 Alone [place] Start: 1950 Sex Assigned At Female W [facility] Start: 10-14-2022 End: 09-20-2024 History of Social function [facility] Start: 10-14-2022 End: 09-20-2024 Tobacco use panel [facility] Adult Depression Screening Assessment 0 [facility] Has the [employer], [employer], [employer], or water company threatened to shut off services in your home in past 12Mo No [facility] Work Phone: (I/We) worried freeman er (my/our) food would run out before (I/we) got money to buy more. Never true [facility] Start: 09-26-2024 Sex Female (finding) [facility] Sexual Orientation Heterosexual (finding) [facility] NEGATED: Highlighted row [facility] Medical Equipment Procedure Code Equipment Code Equipment Origin al Text Equipment Identifier Dates [id number], [id number], [id number], [id number], [id number] Start: 03-13-2020 End: 12-12-2023 Comment on above: Test blood sugar(s) once daily as directed. Dx: E11.22. Insulin: no Goals Date Patient Goal Desired Activity /State Personal health goal Functional Status Date Assessment Result Facility 11-15-2023 Are you deaf, or do you have serious difficulty hearing No 11/15/2023 12:44 PM EDDonny Causey, RN No [facility] 11-15-2023 Are you blind, or do you have serious difficulty seeing, even when wearing glasses No 11/15/2023 12:44 PM EDDonny Causey, RN No [facility] 11-15-2023 Do you have serious difficulty walking or climbing stairs No 11/15/2023 12:44 PM EDT Donny Bourgeois, RN No [facility] 11-15-2023 Do you have difficul ty dressing or bathing No 11/15/2023 12:44 PM EDDonny Causey, RN [facility] 11-15-2023 Because of a physica l, mental, or emotional condition, do you have difficulty doing errands alone such as visiting a physician's office or shopping No 11/15/2023 12:44 PM EDDonny Causey, RN No [facility] 08-11-2022 Functional status [facility] [place] Work Phone: Mental Status Date Assessment Result Facility 11-15-2023 Because of a physica l, mental, or emotional condition, do you have serious difficulty concentrating, remembering, or making decisions No 11/15/2023 12:44 PM EDDonny Causey, RN No [facility] 08-11-2022 Cognitive function Suspicious [facility] Work Phone: 08-10-2022 Cognitive function Arousable To Light Helio n [facility] Work Phone: 04-22-2022 Cognitive function Level Of Cons ciousness Awake;Alert;Appropriate [facility] Work Phone: 04-11-2022 Cognitive function Level Of Cons ciousness Awake;Follows Commands;Drowsy [facility] Work Phone: Clinical Notes 07-14-2016 to 11-08-2024 Telephone Encounter - Winston Gutierrez LPN - 11/08/2024 3:20 PM EDTTelephone Encounter - Winston Gutierrez LPN - 11/08/2024 3:20 PM EDT Note Date & Type Note Facility 11-08-2024 Telephone encounter Note Opened in error. Winston Gutierrez LPN [facility] 11-08-2024 Miscellaneous Notes Opened in error. Winston Gutierrez LPN documented in this encounter [facility] 10-15-2024 Telephone encounter Note Detailed message was left for patient. [facility] 10-15-2024 Miscellaneous Notes Detailed message was left for patient. ok Pt reports she switched pcp's about a month ago and her current pcp has never prescribed her hydralazine. Pt needs refill because she is out of medication, but the new pcp office states they will get back to her in [address]. [address] Johnson can send a 30 day supply of hydralazine 25 mg tid, to get her through until current pcp prescribes it? Pended 30 day supply for Betsy Brambila. Last ov with Dr. Johnson: 01/10/24. documented in this encounter [facility] 10-15-2024 Telephone encounter Note ok [facility] 10-15-2024 Telephone encounter Note Pt reports she switched pcp's about a month ago and her current pcp has never prescribed her hydralazine. Pt needs refill because she is out of medication, but the new pcp office states they will get back to her in [address]. [address] Johnson can send a 30 day supply of hydralazine 25 mg tid, to get her through until current pcp prescribes it? Pended 30 day supply for Betsy Brambila. Last ov with Dr. Johnson: 01/10/24. [facility] 10-03-2024 Note HNO ID: [id number] Author: BETTY LYONS MA Service: ? Author Type: Qualitative Field Coordinator Type: Progress Notes Filed: 10/03/2024 09:24 Note Text: POPULATION HEALTH NAVIGATION OUTREACH Action/FYI Spoke to Betty. She saw SAMANTHA Lambert NEED NAME OF NEW PCP Topic Due (Y or N) Comments Medicare Wellness DECLINED PCP Follow up Colorectal Cancer Screening Controlling Blood Pressure Y A1C Y ORDER IN CHART HCC Y Flu Vaccine Care Everywhere Reviewed MyChart Activation Updated Appointment Note Removed as PCP . Reason for Outreach Care Gap/HCC or Scheduling Wellness Visits Care Gaps due: Controlling Blood Pressure HBA1C Patient Contacted: Spoke to patient/parent/or legal guardian Patient identified by name and : No Navigation Signature: Betty Lyons MA October 03, 2024 8:02 AM [facility] 10-03-2024 Note Patient Outreach (ANAYELI TNAV) ANGELICA TORIBIO ([id number]) 1950 F Date Time Provider Department 10/03/24 BETTY LYONS During your visit today, we recorded the following information about you: Betty Lyons MA 10/03/2024 9:24 AM Signed POPULATION HEALTH NAVIGATION OUTREACH Action/FYI Spoke to Betty. She saw SAMANTHA Lambert NEED NAME OF NEW PCP Topic Due (Y or N) Comments Medicare Wellness DECLINED PCP Follow up Colorectal Cancer Screening Controlling Blood Pressure Y A1C Y ORDER IN CHART HCC Y Flu Vaccine Care Everywhere Reviewed MyChart Activation Updated Appointment Note Removed as PCP . Reason for Outreach Care Gap/HCC or Scheduling Wellness Visits Care Gaps due: Controlling Blood Pressure HBA1C Patient Contacted: Spoke to patient/parent/or legal guardian Patient identified by name and : No Navigation Signature: Betty Lyons MA October 03, 2024 8:02 AM Allergies As of Date: 10/03/2024 Noted Allergy Reaction POISON JODI 12/17/2013 14 - Other: See Comments Comments: Poison Jodi rash ZOCOR (SIMVASTATIN) 03/21/2019 17 - Myalgia Comments: Muscle aches ACTOS (PIOGLITAZONE HCL) 07/19/2005 6 - Diarrhea ALTACE (RAMIPRIL) 07/19/2005 3 - Cough ARTHROTEC 50 (DICLOFENAC-MISOPROS*07/19/2005 8 - GI Upset AUGMENTIN (AMOXICILLIN-POT CLAVUL*02/26/2005 8 - GI Upset CELEBREX (CELECOXIB) 07/19/2005 CODEINE 02/26/2005 11 - Vomiting CRESTOR (ROSUVASTATIN CALCIUM) 07/19/2005 17 - Myalgia Comments: Muscle aches, tried two different times at low doses and had muscle cramping in legs DEMEROL (MEPERIDINE HCL) 02/26/2005 8 - GI Upset FELDENE (PIROXICAM) 07/19/2005 8 - GI Upset GLUCOPHAGE (METFORMIN HCL) 08/31/2013 8 - GI Upset Comments: diarrhea LASIX (FUROSEMIDE) 03/30/2005 Comments: dizzy LIPITOR (ATORVASTATIN CALCIUM) 07/19/2005 17 - Myalgia Comments: Muscle aches PRAVASTATIN 01/03/2012 14 - Other: See Comments Comments: muscle aches calf SULFA (SULFONAMIDE ANTIBIOTICS) 04/22/2005 8 - GI Upset TRICOR (FENOFIBRATE MICRONIZED) 07/19/2005 ZETIA (EZETIMIBE) 07/19/2005 6 - Diarrhea Date Reviewed: 09/20/2024 Reviewed by: Ximena Maciel APRN.[employer] - Fully Assessed Reason for Visit: Population Health Navigation Outreach [3910] Cmt: ROHAN ROATORINBao BRAMBILA PCSA Prescriptions as of 10/03/2024 - amLODIPine (NORVASC) 5 mg tablet Take 1 tablet by mouth once daily. - hydrALAZINE (APRESOLINE) 25 mg tablet Take 1 tablet by mouth three times a day. - Lancets Test blood sugar(s) 2 times daily. Dx: Other DM Code E11.22 Insulin: No - Cholecalciferol, Vitamin D3, 25 mcg (1,000 unit) cap Take 1 capsule by mouth once daily. - blood sugar diagnostic (BLOOD GLUCOSE TEST) test strip Test blood sugar(s) once daily as directed. Dx: E11.22. Insulin: no - biotin 5 mg tab Take 5 mg by mouth once daily. - acetaminophen (TYLENOL) 500 mg tablet Take 2 tablets by mouth every 8 hours as needed for pain. - Blood Pressure Monitor 1 Each once daily. Meds Comments as of 05/02/2018: Tylenol Problem List As Of Date 10/03/2024 Noted Resolved LUMBAGO [M54.50] 03/30/2005 SCIATICA [M54.30] 03/30/2005 Generalized osteoarthritis of multiple sites [M*03/30/2005 Cardiovascular disease [I25.10] 04/22/2005 Chest pain, unspecified [R07.9] 04/22/2005 08/19/2013 MIXED HYPERLIPIDEMIA [E78.2] 04/22/2005 Hypertensive kidney disease with stage 3a chron*04/22/2005 EDEMA [R60.9] 11/08/2005 Type I (juvenile type) diabetes mellitus withou* 01/03/2012 MALAISE AND FATIGUE NEC [R53.81, R53.83] Anxiety state [F41.1] LUMBAR DISC DISPLACEMENT [M51.26] ARTHROPATHY NOS-L/LEG [M17.10] 01/19/2007 Bursitis of shoulder, left [M75.52] 08/19/2010 Vitamin D deficiency [E55.9] 10/29/2012 Cellulitis of buttock [L03.317] 12/07/2012 03/09/2020 Anxiety [F41.9] 01/26/2013 External hemorrhoids [K64.4] 09/01/2013 Stage 3a chronic kidney disease (HCC) [N18.31] 12/05/2013 PTSD (post-traumatic stress disorder) [F43.10] 12/26/2014 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] 12/26/2014 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] 12/26/2014 Reactive 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] 12/30/2014 Type 2 diabetes mellitus with stage 3a chronic *02/11/2016 Cutaneous horn [L85.8] 02/11/2016 Uncontrolled type 2 diabetes mellitus without c*07/14/2016 10/05/2018 Heart murmur, systolic [R01.1] 03/21/2019 Severe nonproliferative diabetic retinopathy of*10/12/2021 Exudative age-related macular degeneration of r*11/07/2022 Complete heart block (HCC) [I44.2] 11/05/2023 Sinoatrial node dysfunction (HCC) [I49.5] 11/08/2023 Presence of permanent cardiac pacemaker [Z95.0] 11/09/2023 Hypertensive urgency [I16.0] 11/09/2023 11/15/2023 UTI due to Klebsiella species [N39.0, B96.89] 11/09/2023 11/15/2023 JEREMIE (acute kidney injury) (HCC) [N17.9] 11/09/2023 11/15/2023 Other chest pain [R07.89] 11/09/2023 11/15/2023 Mal (more content not included)... [facility] 09-25-2024 Evaluation note Diagnosis Onset Date Resolution Breast cancer screening acute September 25, 2024 8:15am Cardiac murmur acute September 8:15am Colon cancer screening acute Ap ril 2024 8:15am Concern about memory acute Apri l 2024 8:15am Weight loss acute September 25, 2 025 8:15am HTN (hypertension) chronic September 25, 2024 8:15am [facility] Work Phone: 1(282) 911-127404-16-2025 Evaluation note* Diagnosis Onset Date Resolution Status Admit Date Cardiac murmur acute September 8:15am Concern about memory acute Apri l 2024 8:15am Weight loss acute September 25, 2 025 8:15am HTN (hypertension) chronic September 25, 2024 8:15am Breast cancer screening resolved A pril 2024 8:15am Colon cancer screening resolved Ap ril 2024 8:15am S/P placement of cardiac pacemaker noneactive November 18, 2024 1 :02pm Establishing care with new doctor, encounter for noneactive November 18, 2024 1:02pm Anemia noneactive November 18, 2024 1:02pm Essential hypertension noneactive Ju ne 2024 1:02pm Prediabetes noneactive November 18 1:02pm Cognitive impairment noneactive November 18, 2024 1:02pm Hypokalemia noneactive November 18 1:02pm [facility] Work Phone: 1(346) 459-790004-16-2025 Evaluation note* Diagnosis Onset Date Resolution Status Admit Date Cardiac murmur acute September 8:15am Concern about memory acute Apri l 2024 8:15am Weight loss acute September 25, 2 025 8:15am HTN (hypertension) chronic September 25, 2024 8:15am Breast cancer screening resolved A pril 2024 8:15am Colon cancer screening resolved Ap ril 2024 8:15am Screening for depression noneactive November 18, 2024 1:02pm Immunization declined noneactive Santana e 2024 1:02pm S/P placement of cardiac pacemaker noneactive November 18, 2024 1 :02pm Establishing care with new doctor, encounter for noneactive November 18, 2024 1:02pm Anemia noneactive November 18, 2024 1:02pm Essential hypertension noneactive Ju ne 2024 1:02pm Prediabetes noneactive November 18 1:02pm Cognitive impairment noneactive November 18, 2024 1:02pm Hypokalemia noneactive November 18 1:02pm [facility] Work Phone: 1(806) 142-688304-11-2025 Instructions* Patient Instructions* Ximena Maciel APRN.CNP - 09/20/2024 7:51 AM EDT We discussed your pacemaker and heart health: - Your pacemaker, implanted on November 07, 2023, is functioning appropriately based on your last devicecheck on August 30, 2024, and today s EKG. - Your annual pacemaker device check is scheduled for December 06, 2024, [facility] on the first floor of the hospital. Please attend this appointment to ensure continued monitoringof your device. - Continue using your remote monitor at home, which sends quarterly updates to the clinic. If you have questions about the monitor or receive unexpected billing information, please contact the deviceclinic for clarification. We discussed your heart murmur and mitral valve stenosis: - You have moderate mitral valve stenosis caused by calcification, which may contribute to your shortness of breath. This condition requires evaluation by a general validation technician. - A referral has been placed for [facility], as it is closer to your location. Please callthem to schedule an appointment. If you prefer to see a validation technician at this clinic, let us know, and we can adjust the referral. We discussed your upcoming eye surgery: - From a pacemaker perspective, there is no issue with proceeding with your eye surgery on Monday. Please inform your eye doctor about your pacemaker and heart murmur. We discussed your weight loss and blood pressure: - Follow up with your primary care provider regarding your recent weight loss and high blood pressure. They may want to run additional tests or adjust your management plan. - Consider purchasing a new blood pressure monitor to track your readings at home. Follow-up instructions: - Keep your December 06, 2024, pacemaker device check appointment. - Schedule an appointment with a general validation technician to evaluate your heart murmur and mitral valve stenosis. - Contact your primary care provider to discuss your weight loss and blood pressure. - Inform your eye doctor about your pacemaker and heart murmur before your surgery. If you experience worsening shortness of breath, chest pain, dizziness, or any other concerning symptoms, please seek medical attention promptly. [facility] History of Present illness Narrative* Ximena Maciel APRN.LACQUER [employer]ATER - 09/20/2024 7:30 AM EDT Images from the original note were not included. [facility] General Cardiology Electrophysiology PRIMARY CARE PHYSICIAN: Carmen Johnson [address] [place] [address] CHIEF COMPLAINT: Cardiovascular medicine follow-up for pacemaker. HISTORY OF PRESENT ILLNESS: Ms. Toribio is a 74 year old female who presents today for follow-up regarding pacemaker. The patient has a past medical history significant for diabetes, hypertension, hyperlipidemia with statin intolerance, depression, and obesity. She presented to an outside ED on 11/05/23 with pelvic pain that began around 5:00 AM, including right lower quadrant pain, dysuria, and pelvic pain after a bowel movement. In the ED, she was found to have a UTI and was started on ceftriaxone. Her EKG showed bradycardia and second-degree AV block, 2:1, and she also had JEREMIE on CKD. She reported experiencing shortness of breath for the past month with orthopnea and intermittent chest pain. She also mentioned a near syncopal episode a few weeks prior to hospitalization, which she attributed to dehydration. She was admitted to the CVICU and evaluated by Dr. Orozco, who recommended permanent pacemaker implantation. She underwent implantation of a [employer] dual chamber pacemaker with Dr. Ramachandran on 11/07/23. Hospitalization was complicated due to concern for cognitive impairment and inability to care for herself. Psychiatry was consulted and recommended outpatient follow-up for neuropsych testing and evaluation possible of dementia. She was discharged home on 11/15/23 with home health care. A 6-week post-pacemaker check completed on 01/03/2024 showed stable function of the pacemaker. Diagnostic Results: - Echocardiogram (admission 11/07/2023): - LVEF: 71% - Normal left ventricular size, no wall motion abnormalities - Severe mitral annular calcification, moderate mitral stenosis - Trace mitral valve regurgitation - Mild tricuspid valve regurgitation - Trace aortic valve regurgitation - Mild aortic valve calcification Interval History: The patient is a 74-year-old female with a history of T2DM, hypertension, hyperlipidemia, statin intolerance and depression, presenting for a one-year follow-up after pacemaker implantation. The patient was admitted to the CVICU on 11/05/2023 for evaluation of bradycardia and second-degreeAV block, 2:1, discovered during an ED visit for pelvic pain. She reported dyspnea for one month with orthopnea and intermittent chest pain. She also experienced a near-syncopal episode a few weeks prior, which she attributed to dehydration. She denied any chest pain, nausea, vomiting, or abdominalpain. An echocardiogram during that admission indicated an LVEF of 71%, normal left ventricular size, no wall motion abnormalities, severe mitral annular calcification, moderate mitral stenosis, trace mitral valve regurgitation, mild tricuspid valve regurgitation, trace aortic valve regurgitation, and mild aortic valve calcification. She underwent implantation of a [employer] dual-chamber pacemaker on 11/07/[address] Orozco. Her hospitalization was complicated by concerns for cognitive impairment and inability to care for herself, prompting a psychiatry consultation. She was disc harged on 11/15/2023 with home healthcare services. A six-week post-pacemaker check on 01/03/2024 showed stable pacemaker function. She reports occasional palpitations, particularly when upset, which she manages with deep breathingexercises. She denies any leg swelling, pain at the left upper chest pacemaker site, lightheadedness, dizziness, or recent illnesses. She reports shortness of breath at times and is wondering if thatis due to the mitral valve disease. She notes significant weight loss, currently weighing 112 lbs, and can feel her ribs when showering. She is scheduled for eye surgery on Monday reportedly on her right eye. Her blood pressure initially was quite elevated SBP 190 mmHg, repeat blood pressure 130/72 mmHg. She reports feeling very nervous about today's appointment, was under the impression that her pacemaker was not functioning appropriately and that she would need an x-ray and possibly blood work, we revi ewed the recent pacemaker check, and ensured her that the device is functioning appropriately. She plans to purchase a new blood pressure monitor. She denies any current chest pain or dyspnea. She is not currently under the care of a general validation technician. PAST MEDICAL HISTORY Diagnosis Date Anxiety state, unspecified Displacement of lumbar intervertebral disc without myelopathy DM type 2 (diabetes mellitus, type 2) (HCC) Edema Other malaise and fatigue Unspecified essential hypertension PAST SURGICAL HISTORY Procedure Laterality Date BASIC PACEMAKER DUAL CHAMBER Left 11/07/2023 [employer] dual PPM for CHB; Dr[facility] Orozco [facility] TOTAL ABDOMINAL HYSTERECT W/WO RMVL TUBE OVARY 06/12/1992 Hysterectomy, Partial-one ovary left Social History Tobacco Use Smoking status: Never Smokeless tobacco: Never Vaping Use Vaping status: Never Used Substance Use Topics Alcohol use: No Drug use: No Family History Problem Relation Age of Onset Heart Father [place] Osteoporosis Mother ? ALLERGIES Allergen Reactions Poison Jodi Other: See Comments Poison Jodi rash Zocor [Simvastatin] Myalgia Muscle aches Actos [Pioglitazone* Diarrhea Altace [Ramipril] Cough Arthrotec 50 [Diclo* GI Upset Augmentin [Amoxicil* GI Upset Celebrex [Celecoxib] Codeine Vomiting Crestor [Rosuvastat* Myalgia Muscle aches, tried two different times at low doses and had muscle cramping in legs Demerol [Meperidine* GI Upset Feldene [Piroxicam] GI Upset Glucophage [Metform* GI Upset diarrhea Lasix [Furosemide] dizzy Lipitor [Atorvastat* Myalgia Muscle aches Pravastatin Other: See Comments muscle aches calf Sulfa (Sulfonamide * GI Upset Tricor [Fenofibrate* Zetia [Ezetimibe] Diarrhea MEDICATIONS: hydrALAZINE (APRESOLINE) 25 mg tablet Take 1 tablet by mouth three times a day. Cholecalciferol, Vitamin D3, 25 mcg (1,000 unit) cap Take 1 capsule by mouth once daily. biotin 5 mg tab Take 5 mg by mouth once daily. acetaminophen (TYLENOL) 500 mg tablet Take 2 tablets by mouth every 8 hours as needed for pain. amLODIPine (NORVASC) 5 mg tablet Take 1 tablet by mouth once daily. (Patient not taking: Reported on 09/20/2024) Lancets Test blood sugar(s) 2 times daily. Dx: Other DM Code E11.22 Insulin: No (Patient not taking: Reported on 09/20/2024) blood sugar diagnostic (BLOOD GLUCOSE TEST) test strip Test blood sugar(s) once daily as directed. Dx: E11.22. Insulin: no (Patient not taking: Reported on 09/20/2024) Blood Pressure Monitor 1 Each once daily. (Patient not taking: Reported on 09/20/2024) REVIEW OF SYSTEMS: Review of Systems Constitutional: Negative for chills, diaphoresis and fever. Respiratory: Positive for shortness of breath (at times). Negative for cough, hemoptysis, sputum production and wheezing. Cardiovascular: Positive for palpitations. Negative for chest pain, orthopnea, leg swelling and PND. Musculoskeletal: Negative for myalgias. Neurological: Negative for dizziness, loss of consciousness and headaches. PHYSICAL EXAMINATION: BP 130/72 Pulse 80 Wt 110 lb (49.9kg) SpO2 99% Physical Exam Vitals and nursing note reviewed. Constitutional: General: She is not in acute distress. Appearance: She is not diaphoretic. HENT: Head: Normocephalic and atraumatic. Neck: Vascular: No JVD. Cardiovascular: Rate and Rhythm: Normal rate and regular rhythm. Pulses: Radial pulses are 2+ on the right side and 2+ on the left side. Heart sounds: S1 normal and S2 normal. Murmur heard. No gallop. Comments: Left upper chest pacemaker site without signs of infection, erythema or swelling. Pulmonary: Effort: Pulmonary effort is normal. No respiratory distress. Breath sounds: Normal breath sounds. No wheezing or rales. Chest: Chest wall: No tenderness. Musculoskeletal: General: Normal range of motion. Cervical back: Neck supple. Right lower leg: No edema. Left lower leg: No edema. Skin: General: Skin is warm and dry. Nails: There is no clubbing. Neurological: Mental Status: She is alert and oriented to person, place, and time. Psychiatric: Mood and Affect: Mood and affect normal. Behavior: Behavior normal. CARDIOVASCULAR MEDICINE TESTING: Echocardiogram: 11/10/2023 CONCLUSIONS: - Exam indication: Pericardial conditions - Left ventricular systolic function is normal. EF = 70 5% (visual est.) Left ventricular diastolic function was not evaluated due to pacing. Trivial pericaradial effusion, minimal organized exudate; no evidence of hemodynamic compromise - Exam was compared with the prior echocardiographic exam performed on 11/07/23. No effusion on prior; appearance similar to current study, howevere. Echocardiogram: 11/07/2023 CONCLUSIONS: - Technically difficult exam due to Respiratory Variation and body habitus. - Exam indication: Initial evaluation of Heart Failure - The left ventricle is normal in size. Left ventricular systolic function is normal. EF = 71 5% (2D 4-ch.) Definity contrast used for endocardial border detection. Indeterminate left ventricular diastolic dysfunction due to an arrhythmia. - There is moderate mitral stenosis caused by calcification - annular. The peak gradient is 19 mmHgand the mean gradient is 7 mmHg. - There is mild (1+ - 2+) tricuspid valve regurgitation. - This is a limited study for assessment of LVEF. - The patient has not had a prior CC echocardiographic exam for comparison. Device Check: [facility] 08/30/2024: Report copied forward: PM remote interrogation. Presenting EGM: /HOSTESS CASHIER @ 72 bpm. Interrogation shows no ventricular high rates and 3 mode switch episodes since last check. Longest ATR episodes, 2 seconds each. PMT noted, EGMs show tracking of atrial rates. Lead impedances and sensing measurements stable. Battery voltage stable. Recommended replacement time is 7.5 yrs. I have personally reviewed the Electrocardiogram: 09/20/2024 -atrial sensed ventricular paced rhythm, 81 bpm, NE 158 ms, QRS 138 ms, QT/QTc 418/485 ms. PLAN AND RECOMMENDATIONS: 1. Encounter for care of pacemaker (Z45.018) 2. Mobitz type II atrioventricular block (I44.1) 3. Sinoatrial node dysfunction (HCC) (I49.5) Pacemaker implanted by Dr. Ramachandran on 11/07/23 due to Mobitz type II AV block and sinoatrial node dysfunction. Last device check on 08/30/2024 showed stable function. Patient uses a remote monitor forquarterly checks. - Continue annual follow-up for pacemaker care. - [facility] device [facility]. - Reinforced the importance of keeping the November appointment for device check. - Schedule a 1-year follow-up with Dr. Orozco or RODNEY. 4. Moderate mitral valve stenosis (I05.0) Echocardiogram from last year showed moderate mitral valve stenosis with severe mitral annular calcification. Patient experiences occasional dyspnea, which may be related to the stenosis. Audible heart murmur on auscultation. - Discussed the nature of mitral valve stenosis and its potential impact on blood flow. - Referred to [facility] for evaluation by a general validation technician. Return in about 1 year (around 09/20/2025) for Dr. Orozco or RODNEY. The patient consented to the use of [employer] software for draft documentation of the visit consistent with [facility] s Notice of Privacy Practices. Ximena Maciel APRN.CNP Medical Decision Making: Problems: Low: Stable chronic illness Moderate: New problem with uncertain prognosis Data: Unique source(s) for external note(s) reviewed: 3+ Unique test result(s) reviewed: 3+ Unique test(s) ordered: 1 Risk: Low: Low risk from testing/treatment Medical Decision Making Level: 4 - Moderate The above note was partially created using a dictation recognition software. A reasonable attempt has been made to correct any errors. documented in this encounterLima City Hospital04-11-2025 NoteHNO ID: [id number] Author: XIMENA MACIEL APRN.CNP Service: ? Author Type: Nurse Practitioner Type: Progress Notes Filed: 09/20/2024 08:06 Note Text: [facility] [place] General Cardiology Electrophysiology PRIMARY CARE PHYSICIAN: Carmen Johnson [address] [phone] CHIEF COMPLAINT: Cardiovascular medicine follow-up for pacemaker. HISTORY OF PRESENT ILLNESS: Ms. Toribio is a 74 year old female who presents today for follow-up regarding pacemaker. The patient has a past medical history significant for diabetes, hypertension, hyperlipidemia with statin intolerance, depression, and obesity. She presented to an outside ED on 11/05/23 with pelvic pain that began around 5:00 AM, including right lower quadrant pain, dysuria, and pelvic pain after a bowel movement. In the ED, she was found to have a UTI and was started on ceftriaxone. Her EKG showed bradycardia and second-degree AV block, 2:1, and she also had JEREMIE on CKD. She reported experiencing shortness of breath for the past month with orthopnea and intermittent chest pain. She also mentioned a near syncopal episode a few weeks prior to hospitalization, which she attributed to dehydration. She was admitted to the CVICU and evaluated by Dr. Orozco, who recommended permanent pacemaker implantation. She underwent implantation of a [employer] dual chamber pacemaker with Dr. Ramachandran on 11/07/23. Hospitalization was complicated due to concern for cognitive impairment and inability to care for herself. Psychiatry was consulted and recommended outpatient follow-up for neuropsych testing and evaluation possible of dementia. She was discharged home on 11/15/23 with home health care. A 6-week post-pacemaker check completed on 01/03/2024 showed stable function of the pacemaker. Diagnostic Results: - Echocardiogram (admission 11/07/2023): - LVEF: 71% - Normal left ventricular size, no wall motion abnormalities - Severe mitral annular calcification, moderate mitral stenosis - Trace mitral valve regurgitation - Mild tricuspid valve regurgitation - Trace aortic valve regurgitation - Mild aortic valve calcification Interval History: The patient is a 74-year-old female with a history of T2DM, hypertension, hyperlipidemia, statin intolerance and depression, presenting for a one-year follow-up after pacemaker implantation. The patient was admitted to the CVICU on 11/05/2023 for evaluation of bradycardia and second-degree AV block, 2:1, discovered during an ED visit for pelvic pain. She reported dyspnea for one month with orthopnea and intermittent chest pain. She also experienced a near-syncopal episode a few weeks prior, which she attributed to dehydration. She denied any chest pain, nausea, vomiting, or abdominal pain. An echocardiogram during that admission indicated an LVEF of 71%, normal left ventricular size, no wall motion abnormalities, severe mitral annular calcification, moderate mitral stenosis, trace mitral valve regurgitation, mild tricuspid valve regurgitation, trace aortic valve regurgitation, and mild aortic valve calcification. She underwent implantation of a [employer] dual-chamber pacemaker on 11/07/[address] Orozco. Her hospitalization was complicated by concerns for cognitive impairment and inability to care for herself, prompting a psychiatry consultation. She was discharged on 11/15/2023 with home healthcare services. A six-week post-pacemaker check on 01/03/2024 showed stable pacemaker function. She reports occasional palpitations, particularly when upset, which she manages with deep breathing exercises. She denies any leg swelling, pain at the left upper chest pacemaker site, lightheadedness, dizziness, or recent illnesses. She reports shortness of breath at times and is wondering if that is due to the mitral valve disease. She notes significant weight loss, currently weighing 112 lbs, and can feel her ribs when showering. She is scheduled for eye surgery on Monday reportedly on her right eye. Her blood pressure initially was quite elevated SBP 190 mmHg, repeat blood pressure 130/72 mmHg. She reports feeling very nervous about today's appointment, was under the impression that her pacemaker was not functioning appropriately and that she would need an x-ray and possibly blood work, we reviewed the recent pacemaker check, and ensured her that the device is functioning appropriately. She plans to purchase a new blood pressure monitor. She denies any current chest pain or dyspnea. She is not currently under the care of a general validation technician. PAST MEDICAL HISTORY Diagnosis Date Anxiety state, unspecified Displacement of lumbar intervertebral disc without myelopathy DM type 2 (diabetes mellitus, type 2) (HCC) Edema Other malaise and fatigue Unspecified essential hypertension PAST SURGICAL HISTORY Procedu (more content not included)...[facility]04-08-2025 Telephone encounter Note* Telephone Encounter - Cherry Aguirre - 09/17/2024 9:42 AM EDT Cardiac Clearance received from [facility] for vitreous hemorrhage removal and AC for hyphema, right eye on 09/18/2024 Form scanned and placed in 's box for review. Cherry Aguirre [facility]04-08-2025 Miscellaneous Notes* Telephone Encounter - Cherry Aguirre - 09/17/2024 9:42 AM EDT Cardiac Clearance received from [facility] for vitreous hemorrhage removal and AC for hyphema, right eye on 09/18/2024 Form scanned and placed in 's box for review. Cherry Aguirre documented in this encounterLima City Hospital04-08-2025 NotePatient Outreach (INTMWS) ANGELICA TORIBIO ([id number]) 1950 F IPA Date Time Provider Department 09/17/24 CARMEN JOHNSON During your visit today, we recorded the following information about you: Allergies As of Date: 09/17/2024 Noted Allergy Reaction POISON JODI 12/17/2013 14 - Other: See Comments Comments: Poison Jodi rash ZOCOR (SIMVASTATIN) 03/21/2019 17 - Myalgia Comments: Muscle aches ACTOS (PIOGLITAZONE HCL) 07/19/2005 6 - Diarrhea ALTACE (RAMIPRIL) 07/19/2005 3 - Cough ARTHROTEC 50 (DICLOFENAC-MISOPROS*07/19/2005 8 - GI Upset AUGMENTIN (AMOXICILLIN-POT CLAVUL*02/26/2005 8 - GI Upset CELEBREX (CELECOXIB) 07/19/2005 CODEINE 02/26/2005 11 - Vomiting CRESTOR (ROSUVASTATIN CALCIUM) 07/19/2005 17 - Myalgia Comments: Muscle aches, tried two different times at low doses and had muscle cramping in legs DEMEROL (MEPERIDINE HCL) 02/26/2005 8 - GI Upset FELDENE (PIROXICAM) 07/19/2005 8 - GI Upset GLUCOPHAGE (METFORMIN HCL) 08/31/2013 8 - GI Upset Comments: diarrhea LASIX (FUROSEMIDE) 03/30/2005 Comments: dizzy LIPITOR (ATORVASTATIN CALCIUM) 07/19/2005 17 - Myalgia Comments: Muscle aches PRAVASTATIN 01/03/2012 14 - Other: See Comments Comments: muscle aches calf SULFA (SULFONAMIDE ANTIBIOTICS) 04/22/2005 8 - GI Upset TRICOR (FENOFIBRATE MICRONIZED) 07/19/2005 ZETIA (EZETIMIBE) 07/19/2005 6 - Diarrhea Date Reviewed: 01/10/2024 Reviewed by: Teresa Zambrano LPN - Fully Assessed Visit Diagnosis:Encounter for screening mammogram for breast cancer [Z12.31] Order(s):SEEMA SCREENING W SABIHA [[id number]] Order #: [id number] FUTURE Prescriptions as of 10/18/2024 - hydrALAZINE (APRESOLINE) 25 mg tablet Take 1 tablet by mouth three times a day. - amLODIPine (NORVASC) 5 mg tablet Take 1 tablet by mouth once daily. - hydrALAZINE (APRESOLINE) 25 mg tablet Take 1 tablet by mouth three times a day. - Lancets Test blood sugar(s) 2 times daily. Dx: Other DM Code E11.22 Insulin: No - Cholecalciferol, Vitamin D3, 25 mcg (1,000 unit) cap Take 1 capsule by mouth once daily. - blood sugar diagnostic (BLOOD GLUCOSE TEST) test strip Test blood sugar(s) once daily as directed. Dx: E11.22. Insulin: no - biotin 5 mg tab Take 5 mg by mouth once daily. - acetaminophen (TYLENOL) 500 mg tablet Take 2 tablets by mouth every 8 hours as needed for pain. - Blood Pressure Monitor 1 Each once daily. Meds Comments as of 05/02/2018: Tylenol Problem List As Of Date 09/17/2024 Noted Resolved LUMBAGO [M54.50] 03/30/2005 SCIATICA [M54.30] 03/30/2005 Generalized osteoarthritis of multiple sites [M*03/30/2005 Cardiovascular disease [I25.10] 04/22/2005 Chest pain, unspecified [R07.9] 04/22/2005 08/19/2013 MIXED HYPERLIPIDEMIA [E78.2] 04/22/2005 Hypertensive kidney disease with stage 3a chron*04/22/2005 EDEMA [R60.9] 11/08/2005 Type I (juvenile type) diabetes mellitus withou* 01/03/2012 MALAISE AND FATIGUE NEC [R53.81, R53.83] Anxiety state [F41.1] LUMBAR DISC DISPLACEMENT [M51.26] ARTHROPATHY NOS-L/LEG [M17.10] 01/19/2007 Bursitis of shoulder, left [M75.52] 08/19/2010 Vitamin D deficiency [E55.9] 10/29/2012 Cellulitis of buttock [L03.317] 12/07/2012 03/09/2020 Anxiety [F41.9] 01/26/2013 External hemorrhoids [K64.4] 09/01/2013 Stage 3a chronic kidney disease (HCC) [N18.31] 12/05/2013 PTSD (post-traumatic stress disorder) [F43.10] 12/26/2014 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] 12/26/2014 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] 12/26/2014 Reactive 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] 12/30/2014 Type 2 diabetes mellitus with stage 3a chronic *02/11/2016 Cutaneous horn [L85.8] 02/11/2016 Uncontrolled type 2 diabetes mellitus without c*07/14/2016 10/05/2018 Heart murmur, systolic [R01.1] 03/21/2019 Severe nonproliferative diabetic retinopathy of*10/12/2021 Exudative age-related macular degeneration of r*11/07/2022 Complete heart block (HCC) [I44.2] 11/05/2023 Sinoatrial node dysfunction (HCC) [I49.5] 11/08/2023 Presence of permanent cardiac pacemaker [Z95.0] 11/09/2023 Hypertensive urgency [I16.0] 11/09/2023 11/15/2023 UTI due to Klebsiella species [N39.0, B96.89] 11/09/2023 11/15/2023 JEREMIE (acute kidney injury) (HCC) [N17.9] 11/09/2023 11/15/2023 Other chest pain [R07.89] 11/09/2023 11/15/2023 Malnutrition of mild degree (HCC) [E44.1] 11/13/2023 Delirium [R41.0] 11/14/2023 11/15/2023 Encounter Status:Closed by CHAR SANTAMARIA on 10/18/24[facility] 09-02-2024 NoteHNO ID: [id number] Author: BETTY LYONS MA Service: ? Author Type: Qualitative Field Coordinator Type: Progress Notes Filed: 09/04/2024 08:31 Note Text: POPULATION HEALTH NAVIGATION OUTREACH Action/FYI Spoke to Betty. She has a new PCP but can't remember his name. Topic Due (Y or N) Comments Medicare Wellness Y PCP Follow up Colorectal Cancer Screening Y Controlling Blood Pressure Y A1C Y HCC Y Flu Vaccine Care Everywhere Reviewed MyChart Activation Updated Appointment Note Reason for Outreach Care Gap/HCC or Scheduling Wellness Visits Care Gaps due: Medicare Annual Wellness Visit Controlling Blood Pressure Colorectal Cancer Screening HBA1C Patient Contacted: Spoke to patient/parent/or legal guardian Patient identified by name and : Yes Care Gap/HCC/Scheduling Wellness actions taken: Patient declined: Patient Declines Navigation Scheduling / Outreach HCC related Navigation Signature: Betty Lyons MA September 02, 2024 8:27 [facility]03-24-2025 History of Present illness Narrative* Btety Lyons MA - 09/02/2024 8:27 AM EDT POPULATION HEALTH NAVIGATION OUTREACH Action/FYI Spoke to Betty. She has a new PCP but can't remember his name. Topic Due (Y or N) Comments Medicare Wellness Y PCP Follow up Colorectal Cancer Screening Y Controlling Blood Pressure Y A1C Y HCC Y Flu Vaccine Care Everywhere Reviewed MyChart Activation Updated Appointment Note Reason for Outreach Care Gap/HCC or Scheduling Wellness Visits Care Gaps due: Medicare Annual Wellness Visit Controlling Blood Pressure Colorectal Cancer Screening HBA1C Patient Contacted: Spoke to patient/parent/or legal guardian Patient identified by name and : Yes Care Gap/HCC/Scheduling Wellness actions taken: Patient declined: Patient Declines Navigation Scheduling / Outreach HCC related Navigation Signature: Betty Lyons MA September 02, 2024 8:27 AM documented in [facility] encounterL[facility]03-[facility] NotePatient Outreach (NETNAV) ANGELICA TORIBIO ([id number]) 1950 F Date Time Provider Department 09/02/24 BETTY LYONS NETNAV During your visit today, we recorded the following information about you: Betty Lyons MA 09/04/2024 8:31 AM Signed POPULATION HEALTH NAVIGATION OUTREACH Action/FYI Spoke to Betty. She has a new PCP but can't remember his name. Topic Due (Y or N) Comments Medicare Wellness Y PCP Follow up Colorectal Cancer Screening Y Controlling Blood Pressure Y A1C Y HCC Y Flu Vaccine Care Everywhere Reviewed MyChart Activation Updated Appointment Note Reason for Outreach Care Gap/HCC or Scheduling Wellness Visits Care Gaps due: Medicare Annual Wellness Visit Controlling Blood Pressure Colorectal Cancer Screening HBA1C Patient Contacted: Spoke to patient/parent/or legal guardian Patient identified by name and : Yes Care Gap/HCC/Scheduling Wellness actions taken: Patient declined: Patient Declines Navigation Scheduling / Outreach HCC related Navigation Signature: Betty Lyons MA September 02, 2024 8:27 AM Allergies As of Date: 09/02/2024 Noted Allergy Reaction POISON JODI 12/17/2013 14 - Other: See Comments Comments: Poison Jodi rash ZOCOR (SIMVASTATIN) 03/21/2019 17 - Myalgia Comments: Muscle aches ACTOS (PIOGLITAZONE HCL) 07/19/2005 6 - Diarrhea ALTACE (RAMIPRIL) 07/19/2005 3 - Cough ARTHROTEC 50 (DICLOFENAC-MISOPROS*07/19/2005 8 - GI Upset AUGMENTIN (AMOXICILLIN-POT CLAVUL*02/26/2005 8 - GI Upset CELEBREX (CELECOXIB) 07/19/2005 CODEINE 02/26/2005 11 - Vomiting CRESTOR (ROSUVASTATIN CALCIUM) 07/19/2005 17 - Myalgia Comments: Muscle aches, tried two different times at low doses and had muscle cramping in legs DEMEROL (MEPERIDINE HCL) 02/26/2005 8 - GI Upset FELDENE (PIROXICAM) 07/19/2005 8 - GI Upset GLUCOPHAGE (METFORMIN HCL) 08/31/2013 8 - GI Upset Comments: diarrhea LASIX (FUROSEMIDE) 03/30/2005 Comments: dizzy LIPITOR (ATORVASTATIN CALCIUM) 07/19/2005 17 - Myalgia Comments: Muscle aches PRAVASTATIN 01/03/2012 14 - Other: See Comments Comments: muscle aches calf SULFA (SULFONAMIDE ANTIBIOTICS) 04/22/2005 8 - GI Upset TRICOR (FENOFIBRATE MICRONIZED) 07/19/2005 ZETIA (EZETIMIBE) 07/19/2005 6 - Diarrhea Date Reviewed: 01/10/2024 Reviewed by: Teresa Zambrano LPN - Fully Assessed Reason for Visit: Population Health Navigation Outreach [3910] Cmt: [employer]CO [employer] PATTY PCSA Prescriptions as of 09/04/2024 - amLODIPine (NORVASC) 5 mg tablet Take 1 tablet by mouth once daily. - hydrALAZINE (APRESOLINE) 25 mg tablet Take 1 tablet by mouth three times a day. - Lancets Test blood sugar(s) 2 times daily. Dx: Other DM Code E11.22 Insulin: No - Cholecalciferol, Vitamin D3, 25 mcg (1,000 unit) cap Take 1 capsule by mouth once daily. - blood sugar diagnostic (BLOOD GLUCOSE TEST) test strip Test blood sugar(s) once daily as directed. Dx: E11.22. Insulin: no - biotin 5 mg tab Take 5 mg by mouth once daily. - acetaminophen (TYLENOL) 500 mg tablet Take 2 tablets by mouth every 8 hours as needed for pain. - Blood Pressure Monitor 1 Each once daily. Meds Comments as of 05/02/2018: Tylenol Problem List As Of Date 09/02/2024 Noted Resolved LUMBAGO [M54.50] 03/30/2005 SCIATICA [M54.30] 03/30/2005 Generalized osteoarthritis of multiple sites [M*03/30/2005 Cardiovascular disease [I25.10] 04/22/2005 Chest pain, unspecified [R07.9] 04/22/2005 08/19/2013 MIXED HYPERLIPIDEMIA [E78.2] 04/22/2005 Hypertensive kidney disease with stage 3a chron*04/22/2005 EDEMA [R60.9] 11/08/2005 Type I (juvenile type) diabetes mellitus withou* 01/03/2012 MALAISE AND FATIGUE NEC [R53.81, R53.83] Anxiety state [F41.1] LUMBAR DISC DISPLACEMENT [M51.26] ARTHROPATHY NOS-L/LEG [M17.10] 01/19/2007 Bursitis of shoulder, left [M75.52] 08/19/2010 Vitamin D deficiency [E55.9] 10/29/2012 Cellulitis of buttock [L03.317] 12/07/2012 03/09/2020 Anxiety [F41.9] 01/26/2013 External hemorrhoids [K64.4] 09/01/2013 Stage 3a chronic kidney disease (HCC) [N18.31] 12/05/2013 PTSD (post-traumatic stress disorder) [F43.10] 12/26/2014 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] 12/26/2014 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] 12/26/2014 Reactive 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] 12/30/2014 Type 2 diabetes mellitus with stage 3a chronic *02/11/2016 Cutaneous horn [L85.8] 02/11/2016 Uncontrolled type 2 diabetes mellitus without c*07/14/2016 10/05/2018 Heart murmur, systolic [R01.1] 03/21/2019 Severe nonproliferative diabetic retinopathy of*10/12/2021 Exudative age-related macular degeneration of r*11/07/2022 Complete heart block (HCC) [I44.2] 11/05/2023 Sinoatrial node dysfunction (HCC) [I49.5] 11/08/2023 Presence of permanent cardiac pacemaker [Z95.0] 11/09/2023 Hypertensive urgency [I16.0] 11/09/2023 11/15/2023 UTI due to Klebsiella species [N39.0, B96 (more content not included)... [facility]02-27-2025 NoteHNO ID: [id number] Author: ANYA MCCORMACK MA Service: ? Author Type: Qualitative Field Coordinator Type: Progress Notes Filed: 08/08/2024 12:39 Note Text: POPULATION HEALTH NAVIGATION OUTREACH Action/FYI Letter received and sent to be mailed Anya Mccormack MA Navigation Signature: Anya Mccormack MA August 08, 2024 12:38 [facility]02-20-2025 NoteHNO ID: [id number] Author: BETTY LYONS MA Service: ? Author Type: Qualitative Field Coordinator Type: Progress Notes Filed: 08/01/2024 08:37 Note Text: POPULATION HEALTH NAVIGATION OUTREACH Action/FYI UNABLE TO LVM NO MYCHART LETTER MAILED Topic Due (Y or N) Comments Medicare Wellness PCP Follow up Y RESCHEDULE APPT Colorectal Cancer Screening Y Controlling Blood Pressure A1C Y HCC Y Flu Vaccine Care Everywhere Reviewed MyChart Activation Updated Appointment Note Reason for Outreach Care Gap/HCC or Scheduling Wellness Visits Care Gaps due: Follow-up Appointment Controlling Blood Pressure Colorectal Cancer Screening HBA1C Patient Contacted: Unable or unnecessary to reach patient: Unable to leave message Letter mailed Navigation Signature: Betty Lyons MA August 01, 2024 7:32 [facility]02-20-2025 History of Present illness Narrative* Betty Lyons MA - 08/01/2024 7:32 AM EST POPULATION HEALTH NAVIGATION OUTREACH Action/FYI UNABLE TO LVM NO MYCHART LETTER MAILED Topic Due (Y or N) Comments Medicare Wellness PCP Follow up Y RESCHEDULE APPT Colorectal Cancer Screening Y Controlling Blood Pressure A1C Y HCC Y Flu Vaccine Care Everywhere Reviewed MyChart Activation Updated Appointment Note Reason for Outreach Care Gap/HCC or Scheduling Wellness Visits Care Gaps due: Follow-up Appointment Controlling Blood Pressure Colorectal Cancer Screening HBA1C Patient Contacted: Unable or unnecessary to reach patient: Unable to leave message Letter mailed Navigation Signature: Betty Lyons MA August 01, 2024 7:32 AM documented in [facility] encounterL[facility]02-[facility]-2025 NoteHNO ID: [id number] Author: BETTY LYONS MA Service: ? Author Type: Qualitative Field Coordinator Type: Progress Notes Filed: 08/01/2024 07:46 Note Text: [facility] History of Present illness Narrative* Betty Lyons MA - 08/01/2024 7:24 AM EST OPENED IN ERROR documented [facility] NotePatient Outreach (NETNAV) ANGELICA TORIBIO ([id number]) 1950 F Date Time Provider Department 08/01/24 BETTY LYONS During your visit today, we recorded the following information about you: Betty Lyons MA 08/01/2024 8:37 AM Signed POPULATION HEALTH NAVIGATION OUTREACH Action/FYI UNABLE TO LVM NO MYCHART LETTER MAILED Topic Due (Y or N) Comments Medicare Wellness PCP Follow up Y RESCHEDULE APPT Colorectal Cancer Screening Y Controlling Blood Pressure A1C Y HCC Y Flu Vaccine Care Everywhere Reviewed MyChart Activation Updated Appointment Note Reason for Outreach Care Gap/HCC or Scheduling Wellness Visits Care Gaps due: Follow-up Appointment Controlling Blood Pressure Colorectal Cancer Screening HBA1C Patient Contacted: Unable or unnecessary to reach patient: Unable to leave message Letter mailed Navigation Signature: Betty Lyons MA August 01, 2024 7:32 AM Anya Mccormack MA 08/08/2024 12:39 PM Signed POPULATION HEALTH NAVIGATION OUTREACH Action/FYI Letter received and sent to be mailed Anya Mccormack MA Navigation Signature: Anya Mccormack MA August 08, 2024 12:38 PM Allergies As of Date: 08/01/2024 Noted Allergy Reaction POISON JODI 12/17/2013 14 - Other: See Comments Comments: Poison Jodi rash ZOCOR (SIMVASTATIN) 03/21/2019 17 - Myalgia Comments: Muscle aches ACTOS (PIOGLITAZONE HCL) 07/19/2005 6 - Diarrhea ALTACE (RAMIPRIL) 07/19/2005 3 - Cough ARTHROTEC 50 (DICLOFENAC-MISOPROS*07/19/2005 8 - GI Upset AUGMENTIN (AMOXICILLIN-POT CLAVUL*02/26/2005 8 - GI Upset CELEBREX (CELECOXIB) 07/19/2005 CODEINE 02/26/2005 11 - Vomiting CRESTOR (ROSUVASTATIN CALCIUM) 07/19/2005 17 - Myalgia Comments: Muscle aches, tried two different times at low doses and had muscle cramping in legs DEMEROL (MEPERIDINE HCL) 02/26/2005 8 - GI Upset FELDENE (PIROXICAM) 07/19/2005 8 - GI Upset GLUCOPHAGE (METFORMIN HCL) 08/31/2013 8 - GI Upset Comments: diarrhea LASIX (FUROSEMIDE) 03/30/2005 Comments: dizzy LIPITOR (ATORVASTATIN CALCIUM) 07/19/2005 17 - Myalgia Comments: Muscle aches PRAVASTATIN 01/03/2012 14 - Other: See Comments Comments: muscle aches calf SULFA (SULFONAMIDE ANTIBIOTICS) 04/22/2005 8 - GI Upset TRICOR (FENOFIBRATE MICRONIZED) 07/19/2005 ZETIA (EZETIMIBE) 07/19/2005 6 - Diarrhea Date Reviewed: 01/10/2024 Reviewed by: Teresa Zambrano LPN - Fully Assessed Reason for Visit: Population Health Navigation Outreach [3910] Cmt: ROHAN BRAMBILA PCSA Prescriptions as of 08/08/2024 - amLODIPine (NORVASC) 5 mg tablet Take 1 tablet by mouth once daily. - hydrALAZINE (APRESOLINE) 25 mg tablet Take 1 tablet by mouth three times a day. - Lancets Test blood sugar(s) 2 times daily. Dx: Other DM Code E11.22 Insulin: No - Cholecalciferol, Vitamin D3, 25 mcg (1,000 unit) cap Take 1 capsule by mouth once daily. - blood sugar diagnostic (BLOOD GLUCOSE TEST) test strip Test blood sugar(s) once daily as directed. Dx: E11.22. Insulin: no - biotin 5 mg tab Take 5 mg by mouth once daily. - acetaminophen (TYLENOL) 500 mg tablet Take 2 tablets by mouth every 8 hours as needed for pain. - Blood Pressure Monitor 1 Each once daily. Meds Comments as of 05/02/2018: Tylenol Problem List As Of Date 08/01/2024 Noted Resolved LUMBAGO [M54.50] 03/30/2005 SCIATICA [M54.30] 03/30/2005 Generalized osteoarthritis of multiple sites [M*03/30/2005 Cardiovascular disease [I25.10] 04/22/2005 Chest pain, unspecified [R07.9] 04/22/2005 08/19/2013 MIXED HYPERLIPIDEMIA [E78.2] 04/22/2005 Hypertensive kidney disease with stage 3a chron*04/22/2005 EDEMA [R60.9] 11/08/2005 Type I (juvenile type) diabetes mellitus withou* 01/03/2012 MALAISE AND FATIGUE NEC [R53.81, R53.83] Anxiety state [F41.1] LUMBAR DISC DISPLACEMENT [M51.26] ARTHROPATHY NOS-L/LEG [M17.10] 01/19/2007 Bursitis of shoulder, left [M75.52] 08/19/2010 Vitamin D deficiency [E55.9] 10/29/2012 Cellulitis of buttock [L03.317] 12/07/2012 03/09/2020 Anxiety [F41.9] 01/26/2013 External hemorrhoids [K64.4] 09/01/2013 Stage 3a chronic kidney disease (HCC) [N18.31] 12/05/2013 PTSD (post-traumatic stress disorder) [F43.10] 12/26/2014 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] 12/26/2014 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] 12/26/2014 Reactive 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] 12/30/2014 Type 2 diabetes mellitus with stage 3a chronic *02/11/2016 Cutaneous horn [L85.8] 02/11/2016 Uncontrolled type 2 diabetes mellitus without c*07/14/2016 10/05/2018 Heart murmur, systolic [R01.1] 03/21/2019 Severe nonproliferative diabetic retinopathy of*10/12/2021 Exudative age-related macular degeneration of r*11/07/2022 Complete heart block (HCC) [I44.2] 11/05/2023 Sinoatrial node dysfunction (HCC) [I49.5] 11/08/2023 Presence of permanent cardiac pacemaker [Z95.0] 11/09/2023 Hyp (more content not included)...[facility] Telephone encounter Note* Telephone Encounter - Carina Cuenca LPN - 07/31/2024 3:32 PM EST Angelica Toribio wants to know if this pacemaker will be in for the rest of her life, patient also like to know if the bumping she feels from the pacemaker is normal ? Patient would also like to know if she should have a general validation technician? Carina Cuenca LPN July 31, 2024 3:35 PM [facility]02-19-[facility] Miscellaneous Notes* Telephone Encounter - Carina Cuenca LPN - 07/31/2024 3:32 PM EST Angelica Toribio wants to know if this pacemaker will be in for the rest of her life, patient also like to know if the bumping she feels from the pacemaker is normal ? Patient would also like to know if she should have a general validation technician? Carina Cuenca LPN July 31, 2024 3:35 PM documented in this encounterLima [facility] Hospital02-07-2025 Telephone encounter Note * Telephone Encounter - Alisha Carranza - 07/19/2024 8:19 AM EST Pt called back returning call, phone number updated. Pt advised needed to reschedule appt missed Jesus, Patient declined at this time as she is not sure how she can get a ride. [facility]02-07-[facility] Miscellaneous Notes* Telephone Encounter - Alisha Carranza - 07/19/2024 8:19 AM EST Pt called back returning call, phone number updated. Pt advised needed to reschedule appt missed in[place], Patient declined at this time as she is not sure how she can get a ride. * Telephone Encounter - Heidi Mazariegos RN - 07/19/2024 8:10 AM EST Called patient and significant others number and no answer. Patients voicemail was full. Will need to call back later. Heidi Mazariegos RN * Telephone Encounter - Carmen Johnson MD - 07/19/2024 12:44 AM EST She missed her June 17 month follow up--help to reschedule Unless she gets labs outside of [facility] system, she is due for follow up labs. I ordered labs so october due prior to appointment. The following approved medication requests have been transmitted electronically. Requested Prescriptions Signed Prescriptions Disp Refills amLODIPine (NORVASC) 5 mg tablet 90 tablet 0 Sig: Take 1 tablet by mouth once daily. Authorizing Provider: CARMEN JOHNSON MD * Telephone Encounter - Heidi Mazariegos RN - 07/18/2024 5:35 PM EST Pt reports she only has a few left. The patient has been identified by name and date of : Yes Caregiver verified no other encounters exist for this prescription request: Yes Caregiver confirmed with patient/requestor that no other refills are due, in the near future, with this provider at this time: Yes The last office visit in the department: 01/10/2024 Does the patient have a future office visit with this provider/department: No Visit date not found Requested Prescriptions Pending Prescriptions Disp Refills amLODIPine (NORVASC) 5 mg tablet 30 tablet 5 Sig: Take 1 tablet by mouth once daily. Heidi Mazariegos RN July 18, 2024 5:35 PM documented in this encounterL[facility]02-07-2025 Telephone encounter Note * Telephone Encounter - Heidi Mazariegos RN - 07/19/2024 8:10 AM EST Called patient and significant others number and no answer. Patients voicemail was full. Will need to call back later. Heidi Mazariegos RN [facility]02-07-20[facility] Telephone encounter Note* Telephone Encounter - Carmen Johnson MD - 07/19/2024 12:44 AM EST She missed her June 6 month follow up--help to reschedule Unless she gets labs outside of [facility] system, she is due for follow up labs. I ordered labs so october due prior to appointment. The following approved medication requests have been transmitted electronically. Requested Prescriptions Signed Prescriptions Disp Refills amLODIPine (NORVASC) 5 mg tablet 90 tablet 0 Sig: Take 1 tablet by mouth once daily. Authorizing Provider: CARMEN JOHNSON MD [facility]02-06-2025 Telephone encounter Note* Telephone Encounter - Heidi Mazariegos RN - 07/18/2024 5:35 PM EST Pt reports she only has a few left. The patient has been identified by name and date of : Yes Caregiver verified no other encounters exist for this prescription request: Yes Caregiver confirmed with patient/requestor that no other refills are due, in the near future, with this provider at this time: Yes The last office visit in the department: 01/10/2024 Does the patient have a future office visit with this provider/department: No Visit date not found Requested Prescriptions Pending Prescriptions Disp Refills amLODIPine (NORVASC) 5 mg tablet 30 tablet 5 Sig: Take 1 tablet by mouth once daily. Heidi Mazariegos RN July 18, 2024 5:35 PM [facility]01-20-2025 History of Present illness Narrative* Betty Lyons MA - 07/01/2024 12:36 PM EST POPULATION HEALTH NAVIGATION OUTREACH Action/FYI LVM NO MYCHART Topic Due (Y or N) Comments Medicare Wellness Y PCP Follow up Mammogram Colorectal Cancer Screening A1C Y Dilated Retinal Exam (WING) KED (UACR and eGFR) HCC Y Flu Vaccine Care Everywhere Reviewed MyChart Activation Updated Appointment Note BP CONTROL Y Reason for Outreach Care Gap/HCC or Scheduling Wellness Visits Care Gaps due: Medicare Annual Wellness Visit Breast Cancer Screening HBA1C Patient Contacted: Unable or unnecessary to reach patient: Left message HCC related Navigation Signature: Betty Lyons MA July 01, 2024 12:36 PM documented in this encounterL[facility]01-20-2025 NoteHNO ID: [id number] Author: BETTY LYONS MA Service: ? Author Type: Qualitative Field Coordinator Type: Progress Notes Filed: 07/01/2024 12:40 Note Text: POPULATION HEALTH NAVIGATION OUTREACH Action/FYI LVM NO MYCHART Topic Due (Y or N) Comments Medicare Wellness Y PCP Follow up Mammogram Colorectal Cancer Screening A1C Y Dilated Retinal Exam (WING) KED (UACR and eGFR) HCC Y Flu Vaccine Care Everywhere Reviewed MyChart Activation Updated Appointment Note BP CONTROL Y Reason for Outreach Care Gap/HCC or Scheduling Wellness Visits Care Gaps due: Medicare Annual Wellness Visit Breast Cancer Screening HBA1C Patient Contacted: Unable or unnecessary to reach patient: Left message HCC related Navigation Signature: Betty Lyons MA July 01, 2024 12:36 [facility]01-20-2025 NotePatient Outreach (NETNAV) ANGELICA TORIBIO ([id number]) 1950 F Date Time Provider Department 07/01/24 BETTY LYONS NETNAV During your visit today, we recorded the following information about you: Betty Lyons MA 07/01/2024 12:40 PM Signed POPULATION HEALTH NAVIGATION OUTREACH Action/FYI LVM NO MYCHART Topic Due (Y or N) Comments Medicare Wellness Y PCP Follow up Mammogram Colorectal Cancer Screening A1C Y Dilated Retinal Exam (WING) KED (UACR and eGFR) HCC Y Flu Vaccine Care Everywhere Reviewed MyChart Activation Updated Appointment Note BP CONTROL Y Reason for Outreach Care Gap/HCC or Scheduling Wellness Visits Care Gaps due: Medicare Annual Wellness Visit Breast Cancer Screening HBA1C Patient Contacted: Unable or unnecessary to reach patient: Left message HCC related Navigation Signature: Betty Lyons MA July 01, 2024 12:36 PM Allergies As of Date: 07/01/2024 Noted Allergy Reaction POISON JODI 12/17/2013 14 - Other: See Comments Comments: Poison Jodi rash ZOCOR (SIMVASTATIN) 03/21/2019 17 - Myalgia Comments: Muscle aches ACTOS (PIOGLITAZONE HCL) 07/19/2005 6 - Diarrhea ALTACE (RAMIPRIL) 07/19/2005 3 - Cough ARTHROTEC 50 (DICLOFENAC-MISOPROS*07/19/2005 8 - GI Upset AUGMENTIN (AMOXICILLIN-POT CLAVUL*02/26/2005 8 - GI Upset CELEBREX (CELECOXIB) 07/19/2005 CODEINE 02/26/2005 11 - Vomiting CRESTOR (ROSUVASTATIN CALCIUM) 07/19/2005 17 - Myalgia Comments: Muscle aches, tried two different times at low doses and had muscle cramping in legs DEMEROL (MEPERIDINE HCL) 02/26/2005 8 - GI Upset FELDENE (PIROXICAM) 07/19/2005 8 - GI Upset GLUCOPHAGE (METFORMIN HCL) 08/31/2013 8 - GI Upset Comments: diarrhea LASIX (FUROSEMIDE) 03/30/2005 Comments: dizzy LIPITOR (ATORVASTATIN CALCIUM) 07/19/2005 17 - Myalgia Comments: Muscle aches PRAVASTATIN 01/03/2012 14 - Other: See Comments Comments: muscle aches calf SULFA (SULFONAMIDE ANTIBIOTICS) 04/22/2005 8 - GI Upset TRICOR (FENOFIBRATE MICRONIZED) 07/19/2005 ZETIA (EZETIMIBE) 07/19/2005 6 - Diarrhea Date Reviewed: 01/10/2024 Reviewed by: Teresa Zambrano LPN - Fully Assessed Reason for Visit: Population Health Navigation Outreach [3910] Cmt: ROHAN WHITEHEAD Prescriptions as of 07/01/2024 - hydrALAZINE (APRESOLINE) 25 mg tablet Take 1 tablet by mouth three times a day. - amLODIPine (NORVASC) 5 mg tablet Take 1 tablet by mouth once daily. - Lancets Test blood sugar(s) 2 times daily. Dx: Other DM Code E11.22 Insulin: No - Cholecalciferol, Vitamin D3, 25 mcg (1,000 unit) cap Take 1 capsule by mouth once daily. - blood sugar diagnostic (BLOOD GLUCOSE TEST) test strip Test blood sugar(s) once daily as directed. Dx: E11.22. Insulin: no - biotin 5 mg tab Take 5 mg by mouth once daily. - acetaminophen (TYLENOL) 500 mg tablet Take 2 tablets by mouth every 8 hours as needed for pain. - Blood Pressure Monitor 1 Each once daily. Meds Comments as of 05/02/2018: Tylenol Problem List As Of Date 07/01/2024 Noted Resolved LUMBAGO [M54.50] 03/30/2005 SCIATICA [M54.30] 03/30/2005 Generalized osteoarthritis of multiple sites [M*03/30/2005 Cardiovascular disease [I25.10] 04/22/2005 Chest pain, unspecified [R07.9] 04/22/2005 08/19/2013 MIXED HYPERLIPIDEMIA [E78.2] 04/22/2005 Hypertensive kidney disease with stage 3a chron*04/22/2005 EDEMA [R60.9] 11/08/2005 Type I (juvenile type) diabetes mellitus withou* 01/03/2012 MALAISE AND FATIGUE NEC [R53.81, R53.83] Anxiety state [F41.1] LUMBAR DISC DISPLACEMENT [M51.26] ARTHROPATHY NOS-L/LEG [M17.10] 01/19/2007 Bursitis of shoulder, left [M75.52] 08/19/2010 Vitamin D deficiency [E55.9] 10/29/2012 Cellulitis of buttock [L03.317] 12/07/2012 03/09/2020 Anxiety [F41.9] 01/26/2013 External hemorrhoids [K64.4] 09/01/2013 Stage 3a chronic kidney disease (HCC) [N18.31] 12/05/2013 PTSD (post-traumatic stress disorder) [F43.10] 12/26/2014 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] 12/26/2014 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] 12/26/2014 Reactive 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] 12/30/2014 Type 2 diabetes mellitus with stage 3a chronic *02/11/2016 Cutaneous horn [L85.8] 02/11/2016 Uncontrolled type 2 diabetes mellitus without c*07/14/2016 10/05/2018 Heart murmur, systolic [R01.1] 03/21/2019 Severe nonproliferative diabetic retinopathy of*10/12/2021 Exudative age-related macular degeneration of r*11/07/2022 Complete heart block (HCC) [I44.2] 11/05/2023 Sinoatrial node dysfunction (HCC) [I49.5] 11/08/2023 Presence of permanent cardiac pacemaker [Z95.0] 11/09/2023 Hypertensive urgency [I16.0] 11/09/2023 11/15/2023 UTI due to Klebsiella species [N39.0, B96.89] 11/09/2023 11/15/2023 JEREMIE (acute kidney injury) (HCC) [N17.9] 11/09/2023 11/15/2023 Other chest pain [R07.89] 11/09/2023 11/15/2023 Malnutrition of mild degree (HCC) [E44.1 (more content not included)...[facility] Telephone encounter Note* Telephone Encounter - Maira Sherman RN - 04/12/2024 12:06 PM EDT Angelica Toribio called in stating she is having an eye procedure and asked if it would interfere with her pacemaker or cause issue with her heart rate. She was extremely vague and is unsure what the procedure is, but described it as shots in her eye. Provided fax number if her eye doctor feels some sort of clearance is needed, they may complete form and return via fax. Maira Sherman RN [facility]11-01-2024 Miscellaneous Notes* Telephone Encounter - Maira Sherman RN - 04/12/2024 12:06 PM EDT Angelica Toribio called in stating she is having an eye procedure and asked if it would interfere with her pacemaker or cause issue with her heart rate. She was extremely vague and is unsure what the procedure is, but described it as shots in her eye. Provided fax number if her eye doctor feels some sort of clearance is needed, they may complete form and return via fax. Maira Sherman RN documented in this encounterL[facility] Hospital07-31-2024 Telephone encounter Note * Telephone Encounter - Fariba Gannon RN - 01/10/2024 5:08 PM EDT Patient seen by PCP on 01/10/24. Fariba Gannon RN [facility]07-31-2024 Miscellaneous Notes* Telephone Encounter - Fariba Gannon RN - 01/10/2024 5:08 PM EDT Patient seen by PCP on 01/10/24. Fariba Gannon RN * Telephone Encounter - Marita Maciel RN - 01/08/2024 12:48 PM EDT Patient calls back and ER follow up visit set up with provider on 01/10/2024. Patient confused as to which medication to take. Patient states that she is going to take hydralazine 25 mg TID and amlodipine 5 mg until she sees provider at appointment. Marita Maciel RN * Telephone Encounter - Manisha Garcia RN - 01/08/2024 12:32 PM EDT Patient phoned stating she just spoke to a nurse and she is confused about how she should take amlodipine and hydralazine. See other phone encounter also. Gave patient provider's message below. Patient still confused. Reports another doctor is not giving her instructions on these medications. She was seen at [facility] night and her after visit summary instructs her to ask pcp about how to take hydralazine 10 mg. Reports she does not have hydralazine 10 mg. She has hydralazine 25 mg (is aware pcp sent the 10 mg today, but it does not make sense to take 2.5 pills when she can just take 1). Reports [facility] did not instruct her on the amlodipine. Reports she and pcp were trying to figure out why she had swelling in her feet,(has gotten better),and she decided to take 1/2 tab of the amlodipine (10 mg) because she thought amlodipine was causing the swelling. Reports she has been taking hydralazine 25 mg 3 x's / day. But that equals 75 mg / day, and she wonders if that is too much. Patient's line disconnected, and this nurse did call her back, but got vm and left a message letting patient know I am sending note to pcp about the converstation we had today. Will ask pcp if patient should stick with amlodipine 5 mg daily and hydralazine 25 mg 3 x's day for now, and discuss againat appt with pcp next week. * Telephone Encounter - Carmen Johnson MD - 01/08/2024 12:25 AM EDT Below noted. Okay to make the adjustment as noted below with amlodipine 2.5 mg and hydralazine lowered to 10 mg dose, as long as BP stays controlled. Noted that she has been getting instruction on her BP from another provider. I agree that it would be confusing to have more than one provider giving her instructions--verify who the other provider is. If she is also following with cardiology, it is okay for her to have them manage her BP instead of me so that she does not get confused on what doses she should be taking, but if she thought the amlodipine and hydralazine were supposed to be for anxiety instead of BP, which doctor told her to stop the amlodipine? I can collaborate with the other providers and/or she can decide who she wants managing meds for now till can collaborate wit hthe other providers. Make sure to put away the hydralazine 25 mg pills in case needs to resume them plus to make sure does not accidentally take them along with the 10 mg tablets. Noted has 01/23 appointment. * Telephone Encounter - Heidi Mazariegos RN - 01/06/2024 11:44 AM EDT Pt called in and was asking about medications. She thought the Amlodipine and Hydralazine were for anxiety. I let her know they were for for BP but worked on different mechanisms. Pt had stopped taking the Amlodipine but will cut it in half and start taking a half a pill with the 25 mg of Hydralazine. Pt will call in next week with an update of BPs. I let her know provider could let her know whatto do with medication when she called in these numbers. Pt is scheduled with Dr Johnson on 01/24/24. Please call in compression socks for Pt to [facility] and call her when sent. Pt will also need thethe 10 mg of Hydralazine called in. * Telephone Encounter - Heidi Mazariegos RN - 01/05/2024 3:10 PM EDT Pt called and is notified of providers message and instructions. Pt states another provider told her to stop taking the amlodipine and she hasn't taken it for 4 days and the swelling has gone down. She said the dosing on the hydralazine is fine, it was the amlodipine that was causing the issue. I tried to schedule the Pt in on 01/18/[address] Johnson and the Pt states she is having eye surgery that day. I told I could get her in another day that week and she states she has two other appointments that week, and this is too many appointments and she doesn't;t need to be see her BP is fine and the swelling is going down. I tried telling her that when changing BP medications they need to f/u tomake sure things stay where they need to be and tried to schedule her for the third week in January.Pt states all these doctors are telling her different things and she may need to be switching providers and hung up on me. Heidi Mazariegos, DEVONTE * Telephone Encounter - Jennifer Worley LPN - 01/04/2024 10:10 AM EDT Left message to call & speak to nurse. Jennifer Worley LPN * Telephone Encounter - Carmen Johnson MD - 01/04/2024 1:13 AM EDT Last 5 Encounter BP Readings: Date: BP: 12/13/2023 128/64 12/11/2023 138/62 11/28/2023 147/76 11/23/2023 142/76 11/20/2023 168/64 Her BPs have been good Both meds she mentioned (Amlodipine and hydralazine) can cause leg swelling. Recommend slowly decreasing meds to avoid rebound high BP while working on lowering amlodipine followed by lowering hydralazine as able as needed. I know she just refilled meds, but can send refill for hydralazine 10 mg (instead of 25mg three times daily now). If amlodipine pill not too tiny, can cut dose in half . Recommend appointment in office in next couple weeks so can check on BP and leg swelling. Have opening 8 in afternoon (make 40 minute slot since patient usually anxious and has several concerns to address; if comes earlier in afternoon, won't have to wait as long to be seen) * Telephone Encounter - Manisha Garcia RN - 01/03/2024 10:18 AM EDT Patient reports her are swelling since she started taking amlodipine 10 mg daily and hydralazine 25mg 3 x's day. Reports the pharmacist told her the amlodipine is causing the swelling in her feet, and doctor will need to prescribe something else. Reports her feet hurt, and her shoes are tight. Reports there is a little bit of swelling in her ankles. Reports the swelling never goes down. Reports b oth of these pills were prescribed when she was in [facility] hospital and at that time, [facility] also discontinued 2 medications prescribed by pcp. Patient doesn't know which ones were d/c'd. Patient declined appt with pcp office. Asking pcp to please advise and phone patient with reply. [phone] documented in this encounterLima City Hospital07-31-2024 Instructions* Patient Instructions* Carmen Johnson MD - 01/10/2024 2:49 PM EDT Will keep hydralazine at 25 mg three times daily. New prescription sent in to pharmacy since I canceled the 25 mg prescription when sent in for 10 mg. New prescription for the 5mg amlodipine sent in so will not have to keep taking half pill of 10 mg pill. Support hose or support stockings. Does not have to be too tight. Okay to try Dr. Biggs's. Also [facility], Diabetic socks, sport socks (Nike, [employer], [employer], etc) Make sure socks are elastic (stretchy). Iron gylcinate, gluconate, fumarate or succinate (better tolerated that iron sulfate)--choose one with the lowest number for iron content (23 to 50s so get 20 to 30 range). Plan to take Monday, Monday, Monday. Labs in about a month and appointment after that (1 to 1.5 months) documented [facility] NoteHNO ID: [id number] Author: CARMEN JOHNSON MD Service: ? Author Type: Physician Type: Progress Notes Filed: 02/16/2024 00:23 Note Text: This note was created using [employer]. Subjective Angelica Toribio is a 73 year old female. Patient presents with: ED Follow-up: [place] ER follow up 01/07/24 SUBJECTIVE: Angelica Toribio is a 73 year old year old lady here today for ER follow up appointment for review of medical conditions. Feels good on current meds with current BP. Reviewed that had first Pacemaker check 01/02/24. Feels like a rumbling in her chest. So went to ER in [place]. Had pressure in chest. No feeling of reflux or indigestion. Ruled out for acute CO. Still taking hydralazine 25 mg TID. Amlodipine half of 10mg pill daily. Has cataracts--large in left and smaller in right. Will see Dr. Barragan at [facility]. Still getting shots for retina. PAST MEDICAL HISTORY No date: Anxiety state, unspecified No date: Displacement of lumbar intervertebral disc without myelopathy No date: DM type 2 (diabetes mellitus, type 2) ([facility]) No date: Edema No date: Other malaise and fatigue No date: Unspecified essential hypertension Current Outpatient Medications Medication Sig hydrALAZINE (APRESOLINE) 10 mg tablet Take 2.5 tablets by mouth three times a day. Lancets Test blood sugar(s) 2 times daily. Dx: Other DM Code E11.22 Insulin: No amLODIPine (NORVASC) 10 mg tablet Take 1 tablet by mouth once daily. (Patient taking differently: Take 5 mg by mouth once daily.) Cholecalciferol, Vitamin D3, 25 mcg (1,000 unit) cap Take 1 capsule by mouth once daily. blood sugar diagnostic (BLOOD GLUCOSE TEST) test strip Test blood sugar(s) once daily as directed. Dx: E11.22. Insulin: no biotin 5 mg tab Take 5 mg by mouth once daily. acetaminophen (TYLENOL) 500 mg tablet Take 2 tablets by mouth every 8 hours as needed for pain. Blood Pressure Monitor 1 Each once daily. No current facility-administered medications for this visit. Review of Systems Objective BP 136/62 Pulse 88 Temp 36.9 ?C (98.4 ?F) Resp 18 Wt 58.3 kg (128 lb 8 oz) SpO2 99% BMI 25.10 kg/m? Physical Exam Constitutional: Appearance: Normal appearance. HENT: Head: Normocephalic. Eyes: Conjunctiva/sclera: Conjunctivae normal. Cardiovascular: Rate and Rhythm: Normal rate and regular rhythm. Heart sounds: Normal heart sounds. Pulmonary: Effort: Pulmonary effort is normal. Breath sounds: Normal breath sounds. Chest: Comments: Scar from pacemaker site looks good Musculoskeletal: Right lower le+ Pitting Edema present. Left lower le+ Pitting Edema present. Skin: General: Skin is warm and dry. Neurological: General: No focal deficit present. Mental Status: She is alert and oriented to person, place, and time. Psychiatric: Mood and Affect: Mood normal. Behavior: Behavior normal. Thought Content: Thought content normal. Judgment: Judgment normal. Assessment and Plan Encounter Diagnosis ICD-10-CM 1. Primary Hypertension I10 COMPREHENSIVE METABOLIC PANEL Control is better. Stay on same doses of med. See patient instructions 2. Bilateral lower extremity edema R60.0 Getting better since dose of amlodipine decreasd to 5 mg. See patient instructions 3. Anemia, unspecified type D64.9 COMPLETE BLOOD COUNT VITAMIN B12 IRON AND TIBC FOLATE, SERUM FERRITIN Continue follow up and present management 4. S/P cardiac pacemaker procedure Z95.0 Has had follow up. 5. Anxiety state F41.1 Emotional support given. Above issues addressed with patient. Reviewed ER evaluation. Patient involved in shared decision making for management of medical issues. History and medications reviewed. Epic updated as needed Refills and/or prescriptions taken care of and meds adjusted as indicated after reviewed history, exam and labs. Health Maintenance reviewed. Updated record and/or ordered tests as recorded. Encouraged on efforts at healthy diet and regular exercise and adequate sleep. I spent a total of 46 minutes on the date of the service which included [id number] patient care, completing clinical documentation, obtaining and/or reviewing separately obtained history, performing a medically appropriate examination, counseling and educating the patient/family/caregiver, ordering medications, tests, or procedures, independently interpreting results (not separately reported), and communicating results to the patient/family/caregiver. Carmen Johnson, [facility]07-31-2024 History of Present illness Narrative* Carmen Johnson MD - 01/10/2024 2:23 PM EDT This note was created using [employer]. Subjective Angelica Toribio is a 73 year old female. Patient presents with: ED Follow-up: [place] ER follow up 01/07/24 SUBJECTIVE: Angelica Toribio is a 73 year old year old lady here today for ER follow up appointment for review of medical conditions. Feels good on current meds with current BP. Reviewed that had first Pacemaker check 01/02/24. Feels like a rumbling in her chest. So went to ER in [place]. Had pressure in chest. No feeling of reflux or indigestion. Ruled out for acute CO. Still taking hydralazine 25 mg TID. Amlodipine half of 10mg pill daily. Has cataracts--large in left and smaller in right. Will see Dr. Barragan at [facility]. Still getting shots for retina. PAST MEDICAL HISTORY No date: Anxiety state, unspecified No date: Displacement of lumbar intervertebral disc without myelopathy No date: DM type 2 (diabetes mellitus, type 2) ([facility]) No date: Edema No date: Other malaise and fatigue No date: Unspecified essential hypertension Current Outpatient Medications Medication Sig hydrALAZINE (APRESOLINE) 10 mg tablet Take 2.5 tablets by mouth three times a day. Lancets Test blood sugar(s) 2 times daily. Dx: Other DM Code E11.22 Insulin: No amLODIPine (NORVASC) 10 mg tablet Take 1 tablet by mouth once daily. (Patient taking differently: Take 5 mg by mouth once daily.) Cholecalciferol, Vitamin D3, 25 mcg (1,000 unit) cap Take 1 capsule by mouth once daily. blood sugar diagnostic (BLOOD GLUCOSE TEST) test strip Test blood sugar(s) once daily as directed. Dx: E11.22. Insulin: no biotin 5 mg tab Take 5 mg by mouth once daily. acetaminophen (TYLENOL) 500 mg tablet Take 2 tablets by mouth every 8 hours as needed for pain. Blood Pressure Monitor 1 Each once daily. No current facility-administered medications for this visit. Review of Systems Objective BP 136/62 Pulse 88 Temp 36.9 C (98.4 F) Resp 18 Wt 58.3 kg (128 lb 8 oz) SpO2 99% BMI 25.10 kg/m Physical Exam Constitutional: Appearance: Normal appearance. HENT: Head: Normocephalic. Eyes: Conjunctiva/sclera: Conjunctivae normal. Cardiovascular: Rate and Rhythm: Normal rate and regular rhythm. Heart sounds: Normal heart sounds. Pulmonary: Effort: Pulmonary effort is normal. Breath sounds: Normal breath sounds. Chest: Comments: Scar from pacemaker site looks good Musculoskeletal: Right lower le+ Pitting Edema present. Left lower le+ Pitting Edema present. Skin: General: Skin is warm and dry. Neurological: General: No focal deficit present. Mental Status: She is alert and oriented to person, place, and time. Psychiatric: Mood and Affect: Mood normal. Behavior: Behavior normal. Thought Content: Thought content normal. Judgment: Judgment normal. Assessment and Plan Encounter Diagnosis ICD-10-CM 1. Primary Hypertension I10 COMPREHENSIVE METABOLIC PANEL Control is better. Stay on same doses of med. See patient instructions 2. Bilateral lower extremity edema R60.0 Getting better since dose of amlodipine decreasd to 5 mg. See patient instructions 3. Anemia, unspecified type D64.9 COMPLETE BLOOD COUNT VITAMIN B12 IRON AND TIBC FOLATE, SERUM FERRITIN Continue follow up and present management 4. S/P cardiac pacemaker procedure Z95.0 Has had follow up. 5. Anxiety state F41.1 Emotional support given. Above issues addressed with patient. Reviewed ER evaluation. Patient involved in shared decision making for management of medical issues. History and medications reviewed. Epic updated as needed Refills and/or prescriptions taken care of and meds adjusted as indicated after reviewed history, exam and labs. Health Maintenance reviewed. Updated record and/or ordered tests as recorded. Encouraged on efforts at healthy diet and regular exercise and adequate sleep. I spent a total of 46 minutes on the date of the service which included [id number] patient care, completing clinical documentation, obtaining and/or reviewing separately obtained history, performing a medically appropriate examination, counseling and educating the patient/family/caregiver, ordering medications, tests, or procedures, independently interpreting results (not separately reported), and communicating results to the patient/family/caregiver. Carmen Johnson MD documented in [facility]07-29-[facility] Telephone encounter Note * Telephone Encounter - Marita Maciel RN - 01/08/2024 12:52 PM EDT See other telephone encounter. Marita Maciel RN [facility]07-29-2024 Miscellaneous Notes* Telephone Encounter - Marita Maciel RN - 01/08/2024 12:52 PM EDT See other telephone encounter. Marita Maciel RN * Telephone Encounter - Heidi Mazariegos RN - 01/08/2024 11:53 AM EDT Pt called I asking about Hydralazine, she states she went to the ER last night for chest pain. Theyprescribed Hydralazine 10 mg take 2.[address] Johnson had her taking Hydralazine 25 mg po TID, and she has these at home. She states she is going to continue to take these. I told her it's the same amount, so that would be fine. I tried setting the Pt up with an ER f/u but she had hung up on me. I called back and left a message to call back and schedule. documented in this encounterL[facility]07-29-2024 Telephone encounter Note * Telephone Encounter - Marita Maciel RN - 01/08/2024 12:48 PM EDT Patient calls back and ER follow up visit set up with provider on 01/10/2024. Patient confused as to which medication to take. Patient states that she is going to take hydralazine 25 mg TID and amlodipine 5 mg until she sees provider at appointment. Marita Maciel RN [facility]07-29-[facility] Telephone encounter Note* Telephone Encounter - Manisha Garcia RN - 01/08/2024 12:32 PM EDT Patient phoned stating she just spoke to a nurse and she is confused about how she should take amlodipine and hydralazine. See other phone encounter also. Gave patient provider's message below. Patient still confused. Reports another doctor is not giving her instructions on these medications. She was seen at [facility] night and her after visit summary instructs her to ask pcp about how to take hydralazine 10 mg. Reports she does not have hydralazine 10 mg. She has hydralazine 25 mg (is aware pcp sent the 10 mg today, but it does not make sense to take 2.5 pills when she can just take 1). Reports [facility] did not instruct her on the amlodipine. Reports she and pcp were trying to figure out why she had swelling in her feet,(has gotten better),and she decided to take 1/2 tab of the amlodipine (10 mg) because she thought amlodipine was causing the swelling. Reports she has been taking hydralazine 25 mg 3 x's / day. But that equals 75 mg / day, and she wonders if that is too much. Patient's line disconnected, and this nurse did call her back, but got vm and left a message letting patient know I am sending note to pcp about the converstation we had today. Will ask pcp if patient should stick with amlodipine 5 mg daily and hydralazine 25 mg 3 x's day for now, and discuss againat appt with pcp next week. [facility] Telephone encounter Note* Telephone Encounter - Heidi Mazariegos RN - 01/08/2024 11:53 AM EDT Pt called I asking about Hydralazine, she states she went to the ER last night for chest pain. Theyprescribed Hydralazine 10 mg take 2.[address] Johnson had her taking Hydralazine 25 mg po TID, and she has these at home. She states she is going to continue to take these. I told her it's the same amount, so that would be fine. I tried setting the Pt up with an ER f/u but she had hung up on me. I called back and left a message to call back and schedule. [facility]07-[facility] Telephone encounter Note* Telephone Encounter - Carmen Johnson MD - 01/08/2024 12:25 AM EDT Below noted. Okay to make the adjustment as noted below with amlodipine 2.5 mg and hydralazine lowered to 10 mg dose, as long as BP stays controlled. Noted that she has been getting instruction on her BP from another provider. I agree that it would be confusing to have more than one provider giving her instructions--verify who the other provider is. If she is also following with cardiology, it is okay for her to have them manage her BP instead of me so that she does not get confused on what doses she should be taking, but if she thought the amlodipine and hydralazine were supposed to be for anxiety instead of BP, which doctor told her to stop the amlodipine? I can collaborate with the other providers and/or she can decide who she wants managing meds for now till can collaborate wit hthe other providers. Make sure to put away the hydralazine 25 mg pills in case needs to resume them plus to make sure does not accidentally take them along with the 10 mg tablets. Noted has 01/23 appointment. [facility]07-[facility] Telephone encounter Note* Telephone Encounter - Heidi Mazariegos RN - 01/06/2024 11:44 AM EDT Pt called in and was asking about medications. She thought the Amlodipine and Hydralazine were for anxiety. I let her know they were for for BP but worked on different mechanisms. Pt had stopped taking the Amlodipine but will cut it in half and start taking a half a pill with the 25 mg of Hydralazine. Pt will call in next week with an update of BPs. I let her know provider could let her know whatto do with medication when she called in these numbers. Pt is scheduled with Dr Johnson on 01/24/24. Please call in compression socks for Pt to [facility] and call her when sent. Pt will also need thethe 10 mg of Hydralazine called in. [facility]07-[facility] Telephone encounter Note* Telephone Encounter - Heidi Mazariegos RN - 01/05/2024 3:10 PM EDT Pt called and is notified of providers message and instructions. Pt states another provider told her to stop taking the amlodipine and she hasn't taken it for 4 days and the swelling has gone down. She said the dosing on the hydralazine is fine, it was the amlodipine that was causing the issue. I tried to schedule the Pt in on 01/18/[address] Johnson and the Pt states she is having eye surgery that day. I told I could get her in another day that week and she states she has two other appointments that week, and this is too many appointments and she doesn't;t need to be see her BP is fine and the swelling is going down. I tried telling her that when changing BP medications they need to f/u tomake sure things stay where they need to be and tried to schedule her for the third week in January.Pt states all these doctors are telling her different things and she may need to be switching providers and hung up on me. Heidi Mazariegos, RN [facility]07-25-20[facility] Telephone encounter Note* Telephone Encounter - Jennifer Worley LPN - 01/04/2024 10:10 AM EDT Left message to call & speak to nurse. Jennifer Worley LPN [facility]07-[facility] Telephone encounter Note* Telephone Encounter - Carmen Johnson MD - 01/04/2024 1:13 AM EDT Last 5 Encounter BP Readings: Date: BP: 12/13/2023 128/64 12/11/2023 138/62 11/28/2023 147/76 11/23/2023 142/76 11/20/2023 168/64 Her BPs have been good Both meds she mentioned (Amlodipine and hydralazine) can cause leg swelling. Recommend slowly decreasing meds to avoid rebound high BP while working on lowering amlodipine followed by lowering hydralazine as able as needed. I know she just refilled meds, but can send refill for hydralazine 10 mg (instead of 25mg three times daily now). If amlodipine pill not too tiny, can cut dose in half . Recommend appointment in office in next couple weeks so can check on BP and leg swelling. Have opening 01/17 in afternoon (make 40 minute slot since patient usually anxious and has several concerns to address; if comes earlier in afternoon, won't have to wait as long to be seen) T [facility]07-24-[facility] Telephone encounter Note* Telephone Encounter - Manisha Garcia RN - 01/03/2024 10:18 AM EDT Patient reports her are swelling since she started taking amlodipine 10 mg daily and hydralazine 25mg 3 x's day. Reports the pharmacist told her the amlodipine is causing the swelling in her feet, and doctor will need to prescribe something else. Reports her feet hurt, and her shoes are tight. Reports there is a little bit of swelling in her ankles. Reports the swelling never goes down. Reports b oth of these pills were prescribed when she was in [facility] hospital and at that time, [facility] also discontinued 2 medications prescribed by pcp. Patient doesn't know which ones were d/c'd. Patient declined appt with pcp office. Asking pcp to please advise and phone patient with reply. [phone] T [facility]07-[facility] NotePPM check, dual lead system with programming. ID x2. Here for 6 week f/u PM evaluation. Pt anxious for today's check. Left chest incision/pocket without signs of infection. 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 Interrogation shows no ventricular high rates and 1 mode switch episodes. ATR episode approx 4-5 sec in duration per EGM. PMT noted, EGM shows tracking of atrial rate. Recommended replacement time is 8 yrs. Lead impedances, atrial sensing and pacing thresholds stable. Threshold outputs adjusted for adequate safety margins. Counters cleared. Next device check scheduled for patient, questions answered. Ana Dalal RN NOTE TO PROVIDERS: CARD Flowsheets contain detailed device programming and testing data. Paceart/Interrogation PDF can be found under CARDIAC DATA AND REPORT, Scanned Documents section.[id number] Miscellaneous Notes* HH SN Agency DC - Keisha Westbrook RN - 12/13/2023 2:21 PM EDT SITUATION: Intermediate agency discharge visit completed today. significant other also present during today's visit. patient reports the following: Allergies--reviewed Medications--reviewed current medications Falls--None BACKGROUND: Reason for Home Care: post pacemaker insertion ASSESSMENT: SN greeted at door by caregiver. Upon entrance patient found on couch Patient appears in no acute distress. Patient/CG concerns verbalized today: no special concerns. Vitals (see flow sheet for details): stable SN findings today: Pt sitting on couch. Pt reports that she has been doing well and requests dc from home health today, she states that she saw Dr Johnson yesterday nd she also feels that it is doing well. She was not able to get transportation to her pacemaker check and has rescheduled it. She denies any problems with the home pacemaker monitor. L chest incision is healed. Pt has a new glucometer and she states pharmacy went through how to use it. She did a blood sugr check during today;s vs and it is 151. SN instructed pt to keep a log of her daily blood sugar results to take to her Dr next time. See intervention summary for education details and any skills performed. Specific SN discharge instructions: Call Dr Johnson office for any concerns. Patient encouraged to take all medication as ordered, eat a well-balanced diet and follow up with all physician appointments. NOMNC: patient requested discharge today Discharged due to Goals met. Patient discharged from Home Care to: self-care RECOMMENDATION: Additional follow ups recommended: None Patient to follow up with Dr. Johnson for additional medical questions/concerns. documented in this encounterL[facility]07-[facility] Patient's home Note* [facility] Agency DC - Keisha Westbrook RN - 12/13/2023 2:21 PM EDT SITUATION: Intermediate agency discharge visit completed today. significant other also present during today's visit. patient reports the following: Allergies--reviewed Medications--reviewed current medications Falls--None BACKGROUND: Reason for Home Care: post pacemaker insertion ASSESSMENT: SN greeted at door by caregiver. Upon entrance patient found on couch Patient appears in no acute distress. Patient/CG concerns verbalized today: no special concerns. Vitals (see flow sheet for details): stable SN findings today: Pt sitting on couch. Pt reports that she has been doing well and requests dc from home health today, she states that she saw Dr Johnson yesterday nd she also feels that it is doing well. She was not able to get transportation to her pacemaker check and has rescheduled it. She denies any problems with the home pacemaker monitor. L chest incision is healed. Pt has a new glucometer and she states pharmacy went through how to use it. She did a blood sugr check during today;s vs and it is 151. SN instructed pt to keep a log of her daily blood sugar results to take to her Dr next time. See intervention summary for education details and any skills performed. Specific SN discharge instructions: Call Dr Johnson office for any concerns. Patient encouraged to take all medication as ordered, eat a well-balanced diet and follow up with all physician appointments. NOMNC: patient requested discharge today Discharged due to Goals met. Patient discharged from Home Care to: self-care RECOMMENDATION: Additional follow ups recommended: None Patient to follow up with Dr. Johnson for additional medical questions/concerns. [facility] Work Phone: [phone] 665-861307-02-2024 Telephone encounter Note* Telephone Encounter - Jennifer Worley LPN - 12/12/2023 4:05 PM EDT Verified w/[facility], their computers were down last week asking for Lancet RX to be resent. Patient has been identified by name and date of : Yes Patient phones for refill(s): Requested Prescriptions Pending Prescriptions Disp Refills Lancets 100 Each 11 Sig: Test blood sugar(s) 2 times daily. Dx: Other DM Code E11.22 Insulin: No Date of last office visit in primary care: 12/11/2023 Date of next office visit in primary care: 01/24/2024 Please advise. Thank you. Jennifer Worley LPN. [facility]07-02-2024 Miscellaneous Notes* Telephone Encounter - Jennifer Worley LPN - 12/12/2023 4:05 PM EDT Verified w/[facility], their computers were down last week asking for Lancet RX to be resent. Patient has been identified by name and date of : Yes Patient phones for refill(s): Requested Prescriptions Pending Prescriptions Disp Refills Lancets 100 Each 11 Sig: Test blood sugar(s) 2 times daily. Dx: Other DM Code E11.22 Insulin: No Date of last office visit in primary care: 12/11/2023 Date of next office visit in primary care: 01/24/2024 Please advise. Thank you. Jennifer Worley LPN. documented in this encounterL[facility]07-02-2024 Telephone encounter Note * Telephone Encounter - Jennifer Worley LPN - 12/12/2023 3:38 PM EDT Patient is calling for a refill of test strips, advised new RX sent to [facility], 11/29/2023, x50 strips, 11 refills. Also, Lancets, new RX sent to [facility], 12/04/2023, x100 each 11 refills. Advised Patient to check with pharmacy. Jennifer Worley LPN [facility]07-02-2024 Miscellaneous Notes* Telephone Encounter - Jennifer Worley LPN - 12/12/2023 3:38 PM EDT Patient is calling for a refill of test strips, advised new RX sent to [facility], 11/29/2023, x50 strips, 11 refills. Also, Lancets, new RX sent to [facility], 12/04/2023, x100 each 11 refills. Advised Patient to check with pharmacy. Jennifer Worley LPN documented in this encounterLima [facility]07-01-2024 History of Present illness Narrative* Jersey Julian RT(R) - 12/11/2023 4:50 PM EDT Radiology Service Progress Note PATIENT NAME: Angelica Toribio DATE OF SERVICE: December 11, 2023 TIME: 4:43 PM PATIENT IDENTITY VERIFICATION COMPLETED USING TWO (2) IDENTIFIERS: Name and Date of confirmedby patient verbally. FALL SCREENING: Has the patient had 2 falls in the last year or 1 fall with injury or currently using an Ambulatory Assistive Device (Walker, Cane, Wheelchair, Crutches, etc.)? No PATIENT GENDER DATA: Female. status: : No status: NO. PATIENT RELEVANT IMPLANT DATA REVIEWED: Not Applicable PATIENT PRESENTS WITH AN IMPLANTABLE OR ATTACHED OIL GAS AND PIPE TESTER: No RADIOLOGY DEPARTMENT: General X-ray: Exam(s) Completed: Chest X-Ray PERIPHERAL IV DATA: Not applicable SIGNED BY: RT Grace(R) December 11, 2023 4:43 PM [facility]24 NoteHNO ID: [id number] Author: JERSEY JULIAN RT(R) Service: Radiology Author Type: Technologist Type: Progress Notes Filed: 12/11/2023 16:52 Note Text: Radiology Service Progress Note PATIENT NAME: Angelica Toribio DATE OF SERVICE: December 11, 2023 TIME: 4:43 PM PATIENT IDENTITY VERIFICATION COMPLETED USING TWO (2) IDENTIFIERS: Name and Date of confirmed by patient verbally. FALL SCREENING: Has the patient had 2 falls in the last year or 1 fall with injury or currently using an Ambulatory Assistive Device (Walker, Cane, Wheelchair, Crutches, etc.)? No PATIENT GENDER DATA: Female. status: : No status: NO. PATIENT RELEVANT IMPLANT DATA REVIEWED: Not Applicable PATIENT PRESENTS WITH AN IMPLANTABLE OR ATTACHED OIL GAS AND PIPE TESTER: No RADIOLOGY DEPARTMENT: General X-ray: Exam(s) Completed: Chest X-Ray PERIPHERAL IV DATA: Not applicable SIGNED BY: Jersey Julian, RT(R) December 11, 2023 4:43 [facility]07-01-2024 Instructions* Patient Instructions* Carmen Johnson MD - 12/11/2023 4:27 PM EDT Follow up with [facility] in 6 to 8 weeks with labs prior. Do labs 1 week prior to appointment. Also follow up with me in 6 months Let us know if sugars get over 250s too often. Goal is blood sugars fasting under 150 and nonfasting under 180. Okay if sugars are at least staying under 200. documented in [facility]07-[facility]24 NoteHNO ID: [id number] Author: CARMEN JOHNSON MD Service: ? Author Type: Physician Type: Progress Notes Filed: 12/17/2023 23:34 Note Text: This note was created using [employer]. Subjective Angelica Toribio is a 73 year old female. Patient presents with: ED Follow-up: [place] [facility] follow up 11/27 then transferred to [facility] SUBJECTIVE: Angelica Toribio is a 73 year old year old lady here today for November ED follow up appointment for review of medical conditions. Boyfriend present Reviewed that blood sugar was low from taking med and not eating as much and was walking more. Glimepiride was stopped. Waster pill also stopped. eGFR was down to 37. Has improved since. Pacemaker was placed in October. Sugars without signs of being high. Got new glucometer. Figuring out how to make it work. BP at home is doing well. Left leg and foot swelling lately. Noted that was not drinking enough water Reviewed May CXR--need follow up CXR on nodule. Has follow up with retinal specialist for moderate NPDR with macular edema OU and cataract OU. Getting monthly eye injections. Told to get new glasses. Was told no driving before due to vision issues in the past PAST MEDICAL HISTORY Diagnosis Date Anxiety state, unspecified Displacement of lumbar intervertebral disc without myelopathy DM type 2 (diabetes mellitus, type 2) (HCC) Edema Other malaise and fatigue Unspecified essential hypertension Current Outpatient Medications Medication Sig Lancets Test blood sugar(s) 2 times daily. Dx: Other DM Code E11.22 Insulin: No blood sugar diagnostic (BLOOD GLUCOSE TEST) test strip Test blood sugar(s) once daily as directed. Dx: E11.22. Insulin: no amLODIPine (NORVASC) 10 mg tablet Take 1 tablet by mouth once daily. acetaminophen (TYLENOL) 500 mg tablet Take 2 tablets by mouth every 8 hours as needed for pain. hydrALAZINE (APRESOLINE) 25 mg tablet Take 1 tablet by mouth three times a day. Cholecalciferol, Vitamin D3, 25 mcg (1,000 unit) cap Take 1 capsule by mouth once daily. Blood Pressure Monitor 1 Each once daily. biotin 5 mg tab Take 5 mg by mouth once daily. (Patient not taking: Reported on 12/11/2023) No current facility-administered medications for this visit. Review of Systems Objective BP 160/72 Pulse 101 Temp 36.4 ?C (97.5 ?F) Resp 18 Wt 59.8 kg (131 lb 14.4 oz) SpO2 100% BMI 25.76 kg/m? Last 5 Encounter Wt Readings: Date: Wt: 12/11/2023 59.8 kg (131 lb 14.4 oz) 11/28/2023 59.9 kg (132 lb) 11/20/2023 66.7 kg (147 lb) 11/05/2023 63.8 kg (140 lb 10.5 oz) 11/05/2023 68 kg (150 lb) No waist measurement recorded Estimated body mass index is 25.76 kg/m? as calculated from the following: Height as of 11/05/23: 152.4 cm (5'). Weight as of this encounter: 59.8 kg (131 lb 14.4 oz). Last 5 Encounter BP Readings: Date: BP: 12/11/2023 160/72 11/28/2023 147/76 11/23/2023 142/76 11/20/2023 168/64 11/07/2023 151/76 Physical Exam Constitutional: Appearance: Normal appearance. HENT: Head: Normocephalic. Eyes: Conjunctiva/sclera: Conjunctivae normal. Cardiovascular: Rate and Rhythm: Normal rate and regular rhythm. Heart sounds: Murmur heard. Systolic murmur is present with a grade of 3/6. Pulmonary: Effort: Pulmonary effort is normal. Breath sounds: Normal breath sounds. Musculoskeletal: Right lower leg: Edema present. Left lower leg: Edema (Left more than right swelling in foot; both leg swelling) present. Skin: General: Skin is warm and dry. Comments: Scar from pacemaker on left upper chest has healed well Neurological: General: No focal deficit present. Mental Status: She is alert and oriented to person, place, and time. Psychiatric: Mood and Affect: Mood normal. Behavior: Behavior normal. Thought Content: Thought content normal. Judgment: Judgment normal. Hemoglobin A1C (%) Date Value 11/08/2023 6.3 11/05/2023 6.2 06/28/2022 6.1 02/10/2022 6.1 10/08/2021 6.6 06/14/2021 7.1 02/01/2021 6.8 08/18/2020 7.0 06/09/2020 7.2 03/05/2020 8.1 Assessment and Plan Encounter Diagnosis ICD-10-CM 1. Type 2 diabetes mellitus with stage 3a chronic kidney disease, without long-term current use of insulin ([facility]) E11.22 N18.31 Will if improves with staying hydrrated. Monitor sugars. Adjust meds if needed. Suspect dehydration is the issue 2. Hypoglycemia E16.2 COMPREHENSIVE METABOLIC PANEL No further episodes since stopped glimeperide and eating better 3. Primary Hypertension I10 COMPREHENSIVE METABOLIC PANEL COMPLETE BLOOD COUNT BP better on recheck. Was higher at home with nurse checks. Stay on same meds and treat fluid retention as well as dehydration.Adjust meds as needed 4. Bilateral lower extremity edema R60.0 Support stockings; as needed Lasix 5. Vitamin D deficiency E55.9 COMPREHENSIVE METABOLIC PANEL VITAMIN D 25 HYDROXY Follow up lab; adjust as needed 6. Lung nodule seen on imaging (more content not included)...[facility]07-01-2024 History of Present illness Narrative* Carmen Johnson MD - 12/11/2023 3:51 PM EDT This note was created using [employer]. Subjective Angelica Toribio is a 73 year old female. Patient presents with: ED Follow-up: [place] ER follow up 11/27 then transferred to [facility] SUBJECTIVE: Angelica Toribio is a 73 year old year old lady here today for November ED follow up appointment forreview of medical conditions. Boyfriend present Reviewed that blood sugar was low from taking med and not eating as much and was walking more. Glimepiride was stopped. Waster pill also stopped. eGFR was down to 37. Has improved since. Pacemaker was placed in October. Sugars without signs of being high. Got new glucometer. Figuring out how to make it work. BP at home is doing well. Left leg and foot swelling lately. Noted that was not drinking enough water Reviewed October CXR--need follow up CXR on nodule. Has follow up with retinal specialist for moderate NPDR with macular edema OU and cataract OU. Getting monthly eye injections. Told to get new glasses. Was told no driving before due to vision issues in the past PAST MEDICAL HISTORY Diagnosis Date Anxiety state, unspecified Displacement of lumbar intervertebral disc without myelopathy DM type 2 (diabetes mellitus, type 2) ([facility]) Edema Other malaise and fatigue Unspecified essential hypertension Current Outpatient Medications Medication Sig Lancets Test blood sugar(s) 2 times daily. Dx: Other DM Code E11.22 Insulin: No blood sugar diagnostic (BLOOD GLUCOSE TEST) test strip Test blood sugar(s) once daily as directed. Dx: E11.22. Insulin: no amLODIPine (NORVASC) 10 mg tablet Take 1 tablet by mouth once daily. acetaminophen (TYLENOL) 500 mg tablet Take 2 tablets by mouth every 8 hours as needed for pain. hydrALAZINE (APRESOLINE) 25 mg tablet Take 1 tablet by mouth three times a day. Cholecalciferol, Vitamin D3, 25 mcg (1,000 unit) cap Take 1 capsule by mouth once daily. Blood Pressure Monitor 1 Each once daily. biotin 5 mg tab Take 5 mg by mouth once daily. (Patient not taking: Reported on 12/11/2023) No current facility-administered medications for this visit. Review of Systems Objective BP 160/72 Pulse 101 Temp 36.4 C (97.5 F) Resp 18 Wt 59.8 kg (131 lb 14.4 oz) SpO2 100% BMI 25.76 kg/m Last 5 Encounter Wt Readings: Date: Wt: 12/11/2023 59.8 kg (131 lb 14.4 oz) 11/28/2023 59.9 kg (132 lb) 11/20/2023 66.7 kg (147 lb) 11/05/2023 63.8 kg (140 lb 10.5 oz) 11/05/2023 68 kg (150 lb) No waist measurement recorded Estimated body mass index is 25.76 kg/m as calculated from the following: Height as of 11/05/23: 152.4 cm (5'). Weight as of this encounter: 59.8 kg (131 lb 14.4 oz). Last 5 Encounter BP Readings: Date: BP: 12/11/2023 160/72 11/28/2023 147/76 11/23/2023 142/76 11/20/2023 168/64 11/07/2023 151/76 Physical Exam Constitutional: Appearance: Normal appearance. HENT: Head: Normocephalic. Eyes: Conjunctiva/sclera: Conjunctivae normal. Cardiovascular: Rate and Rhythm: Normal rate and regular rhythm. Heart sounds: Murmur heard. Systolic murmur is present with a grade of 3/6. Pulmonary: Effort: Pulmonary effort is normal. Breath sounds: Normal breath sounds. Musculoskeletal: Right lower leg: Edema present. Left lower leg: Edema (Left more than right swelling in foot; both leg swelling) present. Skin: General: Skin is warm and dry. Comments: Scar from pacemaker on left upper chest has healed well Neurological: General: No focal deficit present. Mental Status: She is alert and oriented to person, place, and time. Psychiatric: Mood and Affect: Mood normal. Behavior: Behavior normal. Thought Content: Thought content normal. Judgment: Judgment normal. Hemoglobin A1C (%) Date Value 11/08/2023 6.3 11/05/2023 6.2 06/28/2022 6.1 02/10/2022 6.1 10/08/2021 6.6 06/14/2021 7.1 02/01/2021 6.8 08/18/2020 7.0 06/09/2020 7.2 03/05/2020 8.1 Assessment and Plan Encounter Diagnosis ICD-10-CM 1. Type 2 diabetes mellitus with stage 3a chronic kidney disease, without long- term current use of insulin ([facility]) E11.22 N18.31 Will if improves with staying hydrrated. Monitor sugars. Adjust meds if needed. Suspect dehydrationis the issue 2. Hypoglycemia E16.2 COMPREHENSIVE METABOLIC PANEL No further episodes since stopped glimeperide and eating better 3. Primary Hypertension I10 COMPREHENSIVE METABOLIC PANEL COMPLETE BLOOD COUNT BP better on recheck. Was higher at home with nurse checks. Stay on same meds and treat fluid retention as well as dehydration.Adjust meds as needed 4. Bilateral lower extremity edema R60.0 Support stockings; as needed Lasix 5. Vitamin D deficiency E55.9 COMPREHENSIVE METABOLIC PANEL VITAMIN D 25 HYDROXY Follow up lab; adjust as needed 6. Lung nodule seen on imaging study R91.1 XR CHEST 2V FRONTAL/LAT FU CXR for now. Consider CT 7. Renal insufficiency N28.9 COMPREHENSIVE METABOLIC PANEL COMPLETE BLOOD COUNT Improving labs. Encouraged on staying hydrated 8. Anxiety state F41.1 Monitor for now Above issues addressed with patient. Patient involved in shared decision making for management of medical issues. History and medications reviewed. Epic updated as needed Refills and/or prescriptions taken care of and meds adjusted as indicated after reviewed history, exam and labs. Health Maintenance reviewed. Updated record and/or ordered tests as recorded. Encouraged on efforts at healthy diet and regular exercise and adequate sleep. I spent a total of 38 minutes on the date of the service which included [id number] patient care, completing clinical documentation, obtaining and/or reviewing separately obtained history, performing a medically appropriate examination, counseling and educating the patient/family/caregiver, ordering medications, tests, or procedures, independently interpreting results (not separately reported), and communicating results to the patient/family/caregiver. Carmen Johnson MD documented in this encounterL[facility]06-24-[facility]24 Telephone encounter Note * Telephone Encounter - Mindi Kitchen LPN - 12/04/2023 1:42 PM EDT Pt called and she needs lancets sent to the pharmacy. Mindi Kitchen LPN The patient has been identified by name and date of : Yes Caregiver verified no other encounters exist for this prescription request: Yes Caregiver confirmed with patient/requestor that no other refills are due, in the near future, with this provider at this time: Yes The last office visit in the department: 10/14/2022 Does the patient have a future office visit with this provider/department: Yes 12/08/2023 Requested Prescriptions Pending Prescriptions Disp Refills Lancets 100 Each 11 Sig: Test blood sugar(s) 2 times daily. Dx: Other DM Code E11.22 Insulin: No Mindi Kitchen LPN December 04, 2023 1:46 PM [facility] Miscellaneous Notes* Telephone Encounter - Mindi Kitchen LPN - 12/04/2023 1:42 PM EDT Pt called and she needs lancets sent to the pharmacy. Mindi Kitchen LPN The patient has been identified by name and date of : Yes Caregiver verified no other encounters exist for this prescription request: Yes Caregiver confirmed with patient/requestor that no other refills are due, in the near future, with this provider at this time: Yes The last office visit in the department: 10/14/2022 Does the patient have a future office visit with this provider/department: Yes 12/08/2023 Requested Prescriptions Pending Prescriptions Disp Refills Lancets 100 Each 11 Sig: Test blood sugar(s) 2 times daily. Dx: Other DM Code E11.22 Insulin: No Mindi Kitchen LPN December 04, 2023 1:46 PM documented in this encounterLima City Hospital06-19-2024 Telephone encounter Note * Telephone Encounter - Carmen Johnson MD - 11/29/2023 10:02 AM EDT Below noted The following approved medication requests have been transmitted electronically. Requested Prescriptions Signed Prescriptions Disp Refills blood sugar diagnostic (BLOOD GLUCOSE TEST) test strip 50 Strip 11 Sig: Test blood sugar(s) once daily as directed. Dx: E11.22. Insulin: no Authorizing Provider: CARMEN JOHNSON MD [facility] Miscellaneous Notes* Telephone Encounter - Carmen Johnson MD - 11/29/2023 10:02 AM EDT Below noted The following approved medication requests have been transmitted electronically. Requested Prescriptions Signed Prescriptions Disp Refills blood sugar diagnostic (BLOOD GLUCOSE TEST) test strip 50 Strip 11 Sig: Test blood sugar(s) once daily as directed. Dx: E11.22. Insulin: no Authorizing Provider: CARMEN JOHNSON MD * Telephone Encounter - Letty Carlos RN - 11/29/2023 9:[address] Johnson encounter note from 11/27. Called and spoke with pt to set up ER f/u appt. Pt booked for Thursday 12/07. Pt refused to see anyone but Dr. Johnson. Pt asking for confirmation on what medshe is to stop taking. Notified not to take the Glimepiride (Amaryl) anymore. Pt sounding very sluggish on the phone. Asked if she has the ability to check her blood sugars. Pt states she does. Askedfor pt to do one while speaking with nurse on the phone. She refused as she states she is in the middle of something. Nurse concerned about pt and asked if she could check it please. Pt states she can't as she ran out of glucose strips yesterday. Explained to pt that we can send in a new script forher glucose testing strip. Asked pt to monitor her blood sugars over the next several days to make sure she isn't still dropping low. Pt encouraged to eat protein and balanced diet. documented in this encounterLima [facility] Hospital06-19-2024 Telephone encounter Note * Telephone Encounter - Letty Carlos RN - 11/29/2023 10:00 AM EDT Pt set up for ER f/u visit on 12/07 [facility] Miscellaneous Notes* Telephone Encounter - Letty Carlos RN - 11/29/2023 10:00 AM EDT Pt set up for ER f/u visit on 12/07 * Telephone Encounter - Carmen Johnson MD - 11/28/2023 12:39 PM EDT Discussed with ER doctor, Dr. Espinosa. She needs an appointment for follow up (not seen since last year and needs ER follow up to decide on whether needs medication to replace Amaryl/glimepiride) Patient hypoglycemic and unresponsive at home. Treated by squad and responsive after glucose given. Was dieting (1 meal a day) to lose weight. Was still taking Amaryl 4mg daily. They will observe her longer for serial troponin-Is, as well as glucose. Up to 216 after more food. Reviewed that patient missed September appointment with [facility]. Canceled other appointments last year. Last seen August 2022. Took Amaryl off med list. Would use other med if needed for DM control. She has home health coming out to check on her. Noted that patient had pacemaker placed 11/07/23. Hemoglobin A1C (%) Date Value 11/08/2023 6.3 11/05/2023 6.2 06/28/2022 6.1 02/10/2022 6.1 10/08/2021 6.6 06/14/2021 7.1 02/01/2021 6.8 08/18/2020 7.0 06/09/2020 7.2 03/05/2020 8.1 documented in this encounterLima City Hospital06-19-2024 Telephone encounter Note * Telephone Encounter - Letty Carlos RN - 11/29/2023 9:[address] Johnson encounter note from 11/27. Called and spoke with pt to set up ER f/u appt. Pt booked for Thursday 12/07. Pt refused to see anyone but Dr. Johnson. Pt asking for confirmation on what medshe is to stop taking. Notified not to take the Glimepiride (Amaryl) anymore. Pt sounding very sluggish on the phone. Asked if she has the ability to check her blood sugars. Pt states she does. Askedfor pt to do one while speaking with nurse on the phone. She refused as she states she is in the middle of something. Nurse concerned about pt and asked if she could check it please. Pt states she can't as she ran out of glucose strips yesterday. Explained to pt that we can send in a new script forher glucose testing strip. Asked pt to monitor her blood sugars over the next several days to make sure she isn't still dropping low. Pt encouraged to eat protein and balanced diet. [facility] Telephone encounter Note* Telephone Encounter - Carmen Johnson MD - 11/28/2023 12:39 PM EDT Discussed with ER doctor, Dr. Espinosa. She needs an appointment for follow up (not seen since last year and needs ER follow up to decide on whether needs medication to replace Amaryl/glimepiride) Patient hypoglycemic and unresponsive at home. Treated by squad and responsive after glucose given. Was dieting (1 meal a day) to lose weight. Was still taking Amaryl 4mg daily. They will observe her longer for serial troponin-Is, as well as glucose. Up to 216 after more food. Reviewed that patient missed September appointment with [facility]. Canceled other appointments last year. Last seen August 2022. Took Amaryl off med list. Would use other med if needed for DM control. She has home health coming out to check on her. Noted that patient had pacemaker placed 11/07/23. Hemoglobin A1C (%) Date Value 11/08/2023 6.3 11/05/2023 6.2 06/28/2022 6.1 02/10/2022 6.1 10/08/2021 6.6 06/14/2021 7.1 02/01/2021 6.8 08/18/2020 7.0 06/09/2020 7.2 03/05/2020 8.1 [facility] Tele[facility] encounter Note* Telephone Encounter - Alvaro Medina LSW - 11/24/2023 11:40 AM EDT 11/24/23 ADMINISTRATIVE RESOURCES ASSOCIATE called the pt. regarding ADMINISTRATIVE RESOURCES ASSOCIATE visit and community resources. 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 ADMINISTRATIVE RESOURCES ASSOCIATE discussed with the pt. [facility] The pt. stated she did not need more help and that her boyfriend lives with her and he assists her. ADMINISTRATIVE RESOURCES ASSOCIATE asked the pt. about transportation. The pt. stated she needs transportation to the grocery store. She discussed with ADMINISTRATIVE RESOURCES ASSOCIATE that her and her boyfriend took a taxi to [facility] the other day and she did not feel good and was taken to the ER and she stated she was not admitted. The pt. stated they ate at [facility]. The pt. stated that Keisha the Nurse was there yesterday and is coming back on Monday. The pt. stated there was another Nurse before Keisha and she could not think of her name. The pt. was talking with her boyfriend in the background and stated the Nusre was Evelin. ADMINISTRATIVE RESOURCES ASSOCIATE educated the pt. on [employer] and [facility]. The pt. stated she has used [employer] for Transportation and she stated they were to sign her up with [facility]. ADMINISTRATIVE RESOURCES ASSOCIATE stated she could call and see if she was registered. The pt. stated she will call [employer] and she has appointments out of [facility]. The pt. aware that [employer] maybe able to transport her out of [facility]. ADMINISTRATIVE RESOURCES ASSOCIATE educated the pt. on the [employer] providing transportation and the pt. was aware of this and stated she sees their vans around tow. ADMINISTRATIVE RESOURCES ASSOCIATE discussed with the pt. she would have topay for transportation through [employer]. ADMINISTRATIVE RESOURCES ASSOCIATE asked the pt. if she was managing financially and she stated she gets Social Security and denied any financial stress. ADMINISTRATIVE RESOURCES ASSOCIATE asked the pt. about her bathingand needing more help. ADMINISTRATIVE RESOURCES ASSOCIATE educated the pt. on [employer]. The pt. stated she was aware of [employer] and did not need more help. She feels they can amanage their own meals. The pt. was supportive for ADMINISTRATIVE RESOURCES ASSOCIATE to mail her information on Transportation services in [facility]. ADMINISTRATIVE RESOURCES ASSOCIATE provided the pt. with her name and phone number to call with any needs. 11/24/23 ADMINISTRATIVE RESOURCES ASSOCIATE mailed the pt. information on Transportation Services in [facility] [place], [facility] Transportation, information on [facility] Agency on Aging and the [facility] and information on [employer]:[facility] Information Referral Exchange. Thank You, [facility] Work Phone: [phone] Miscellaneous Notes* Telephone Encounter - Alvaro Medina LSW - 11/24/2023 11:40 AM EDT 11/24/23 ADMINISTRATIVE RESOURCES ASSOCIATE called the pt. regarding ADMINISTRATIVE RESOURCES ASSOCIATE visit and community resources. 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 ADMINISTRATIVE RESOURCES ASSOCIATE discussed with the pt. [place] The pt. stated she did not need more help and that her boyfriend lives with her and he assists her. ADMINISTRATIVE RESOURCES ASSOCIATE asked the pt. about transportation. The pt. stated she needs transportation to the grocery store. She discussed with ADMINISTRATIVE RESOURCES ASSOCIATE that her and her boyfriend took a taxi to [facility] the other day and she did not feel good and was taken to the ER and she stated she was not admitted. The pt. stated they ate at [facility]. The pt. stated that Keisha the Nurse was there yesterday and is coming back on Monday. The pt. stated there was another Nurse before Keisha and she could not think of her name. The pt. was talking with her boyfriend in the background and stated the Nusre was Evelin. ADMINISTRATIVE RESOURCES ASSOCIATE educated the pt. on [employer] and [facility]. The pt. stated she has used [employer] for Transportation and she stated they were to sign her up with [facility]. ADMINISTRATIVE RESOURCES ASSOCIATE stated she could call and see if she was registered. The pt. stated she will call [employer] and she has appointments out of [facility]. The pt. aware that [employer] maybe able to transport her out of [facility]. ADMINISTRATIVE RESOURCES ASSOCIATE educated the pt. on the [facility] providing transportation and the pt. was aware of this and stated she sees their vans around [facility]. ADMINISTRATIVE RESOURCES ASSOCIATE discussed with the pt. she would have topay for transportation through [employer]. ADMINISTRATIVE RESOURCES ASSOCIATE asked the pt. if she was managing financially and she stated she gets Social Security and denied any financial stress. ADMINISTRATIVE RESOURCES ASSOCIATE asked the pt. about her bathingand needing more help. ADMINISTRATIVE RESOURCES ASSOCIATE educated the pt. on [facility]/[facility]. The pt. stated she was aware of [employer] and did not need more help. She feels they can amanage their own meals. The pt. was supportive for ADMINISTRATIVE RESOURCES ASSOCIATE to mail her information on Transportation services in [facility]. ADMINISTRATIVE RESOURCES ASSOCIATE provided the pt. with her name and phone number to call with any needs. 11/24/23 ADMINISTRATIVE RESOURCES ASSOCIATE mailed the pt. information on Transportation Services in [facility]-[employer] [place]- [facility], [facility] Transportation, information on [facility] Agency on Aging and the Aging and Disability Resource Center and information on WHIRE:Farhat Jimenez Information Referral Exchange. Thank You, documented in this encounterLima City Hospital06-14-2024 Miscellaneous Notes* HH CARE COORDINATION - Alvaro Medina LSW - 11/24/2023 10:15 AM EDT 11/24/23 10:24 AM - 10:40 AM ADMINISTRATIVE RESOURCES ASSOCIATE called the pt. regarding ADMINISTRATIVE RESOURCES ASSOCIATE visit and community resources. 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 ADMINISTRATIVE RESOURCES ASSOCIATE discussed with the pt. regarding needing more help in the home. The pt. stated she did not need more help and that her boyfriend lives with her and he assists her. ADMINISTRATIVE RESOURCES ASSOCIATE asked the pt. about transportation. The pt. stated she needs transport ation to the grocery store. She discussed with ADMINISTRATIVE RESOURCES ASSOCIATE that her and her boyfriend took a taxi to [facility] the other day and she did not feel good and was taken to the ER and she stated she was not admitted. The pt. stated they ate at [facility]. The pt. stated that Keisha the Nurse was there yesterday and is coming back on Monday. The pt. stated there was another Nurse before Keisha and she could not think of her name. The pt. was talking with her boyfriend in the background and stated the Nusre was Evelin. ADMINISTRATIVE RESOURCES ASSOCIATE educated the pt. on [employer] and [facility]. The pt. stated she has used [employer] for Transportation and she stated they were to sign her up with [facility] Trans it. ADMINISTRATIVE RESOURCES ASSOCIATE stated she could call and see if she was registered. The pt. stated she will call [employer] and she has appointments out of [facility]. The pt. aware that [employer] maybe ableto transport her out of [facility]. ADMINISTRATIVE RESOURCES ASSOCIATE educated the pt. on the [employer] providing transportation and the pt. was aware of this and stated she sees their vans around [facility]. ADMINISTRATIVE RESOURCES ASSOCIATE discussed with the pt. she would have to pay for transportation through [employer]. ADMINISTRATIVE RESOURCES ASSOCIATE asked the pt. if she was managing financially and she stated she gets Social Security and denied any financial stress. ADMINISTRATIVE RESOURCES ASSOCIATE asked the pt. about her bathing and needing more help. ADMINISTRATIVE RESOURCES ASSOCIATE educated the pt. on [employer]/[facility]. The pt. stated she was aware of [employer] and did not need more help. She feels they can amanage their own meals. The pt. was supportive for ADMINISTRATIVE RESOURCES ASSOCIATE to mail her information on Transportation services in [facility]. ADMINISTRATIVE RESOURCES ASSOCIATE provided the pt. with her name and phone number to call with any needs. 11/24/23 ADMINISTRATIVE RESOURCES ASSOCIATE mailed the pt. information on Transportation Services in [facility]-[employer] [place]- [facility], [facility] Transportation, information on [facility] Agency on Aging and the Aging and Disability Resource Center and information on WHIRE:[employer]hat Jimenez Information Referral Exchange. 11/24/23 ADMINISTRATIVE RESOURCES ASSOCIATE messaged Dr. Carmen Johnson - ADMINISTRATIVE RESOURCES ASSOCIATE phone call with the pt. and that ADMINISTRATIVE RESOURCES ASSOCIATE mailed the pt.information on Transportation Services in [facility]- [employer] [place]- [facility], [facility], information on [facility] Agency on Aging and the Aging and Disability Resource Center and information on WHIRE:Farhat Jimenez Information Referral Exchange. documented in this encounterLima City Hospital06-14-2024 Patient's home Note* HH CARE COORDINATION - Alvaro Medina LSW - 11/24/2023 10:15 AM EDT 11/24/23 10:24 AM - 10:40 AM ADMINISTRATIVE RESOURCES ASSOCIATE called the pt. regarding ADMINISTRATIVE RESOURCES ASSOCIATE visit and community resources. 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 ADMINISTRATIVE RESOURCES ASSOCIATE discussed with the pt. regarding needing more help in the home. The pt. stated she did not need more help and that her boyfriend lives with her and he assists her. ADMINISTRATIVE RESOURCES ASSOCIATE asked the pt. about transportation. The pt. stated she needs transport ation to the grocery store. She discussed with ADMINISTRATIVE RESOURCES ASSOCIATE that her and her boyfriend took a taxi to [facility] the other day and she did not feel good and was taken to the ER and she stated she was not admitted. The pt. stated they ate at [facility]. The pt. stated that Keisha the Nurse was there yesterday and is coming back on Monday. The pt. stated there was another Nurse before Keisha and she could not think of her name. The pt. was talking with her boyfriend in the background and stated the Nusre was Evelin. ADMINISTRATIVE RESOURCES ASSOCIATE educated the pt. on [employer] and [facility]. The pt. stated she has used [employer] for Transportation and she stated they were to sign her up with [facility] it. ADMINISTRATIVE RESOURCES ASSOCIATE stated she could call and see if she was registered. The pt. stated she will call [employer] and she has appointments out of [facility]. The pt. aware that [facility] [employer] maybe ableto transport her out of [facility]. ADMINISTRATIVE RESOURCES ASSOCIATE educated the pt. on the [facility] providing transportation and the pt. was aware of this and stated she sees their vans around [facility]. ADMINISTRATIVE RESOURCES ASSOCIATE discussed with the pt. she would have to pay for transportation through [employer]. ADMINISTRATIVE RESOURCES ASSOCIATE asked the pt. if she was managing financially and she stated she gets Social Security and denied any financial stress. ADMINISTRATIVE RESOURCES ASSOCIATE asked the pt. about her bathing and needing more help. ADMINISTRATIVE RESOURCES ASSOCIATE educated the pt. on [employer]/[facility]. The pt. stated she was aware of [employer] and did not need more help. She feels they can amanage their own meals. The pt. was supportive for ADMINISTRATIVE RESOURCES ASSOCIATE to mail her information on Transportation services in [facility]. ADMINISTRATIVE RESOURCES ASSOCIATE provided the pt. with her name and phone number to call with any needs. 11/24/23 ADMINISTRATIVE RESOURCES ASSOCIATE mailed the pt. information on Transportation Services in [facility] Transit, [facility] Transportation, information on [facility] on [facility] and the Aging and Disability Resource [place] and information on WHIRE:Farhat Jimenez Information Referral Exchange. 11/24/23 ADMINISTRATIVE RESOURCES ASSOCIATE messaged Dr. Carmen Johnson - ADMINISTRATIVE RESOURCES ASSOCIATE phone call with the pt. and that ADMINISTRATIVE RESOURCES ASSOCIATE mailed the pt.information on Transportation Services in [facility] Transit, [facility] Transportation, information on [facility] on [facility] and the Aging and Disability Resource Center and information on WHIRE:Farhat Jimenez Information Referral Exchange. [facility] Work Phone: 1(456) 914-538606-13-2024 Miscellaneous Notes* HH CARE COORDINATION - Alvaro Medina LSW - 11/23/2023 1:30 PM EDT 11/23/23 1:41 PM - 1:42 PM ADMINISTRATIVE RESOURCES ASSOCIATE called the pt. and her voicemail came on. 11/22/22 1:46 PM - 1:47 PM ADMINISTRATIVE RESOURCES ASSOCIATE called the pt. again and voicemail came on. documented in this encounterLima City Hospital06-13-2024 Patient's home Note* CARE COORDINATION - Alvaro Medina LSW - 11/23/2023 1:30 PM EDT 11/23/23 1:41 PM - 1:42 PM ADMINISTRATIVE RESOURCES ASSOCIATE called the pt. and her voicemail came on. 11/22/22 1:46 PM - 1:47 PM ADMINISTRATIVE RESOURCES ASSOCIATE called the pt. again and voicemail came on. [facility] Work Phone: 1(437) 987-167706-13-2024 Miscellaneous Notes* SN Routine - Keisha Westbrook RN - 11/23/2023 12:16 PM EDT SITUATION: Intermediate routine visit completed today. son also present during today's visit. patient reports the following: Allergies--reviewed Medications--reviewed current medications Falls--None BACKGROUND: Reason for Home Care: post pacemaker placement ASSESSMENT: SN greeted at door by patient no DME and demonstrates stable gait. Patient appears in no acute distress. Patient/CG concerns verbalized today: pt verbalizes that she went to ED yesterday because she felt a lump in her throat after eating and then generally did not feel good. She reports that she was at [facility] at the time and squad was called. She reports that they did many tests and gave her something to drink and this calmed down the feeling in her throat. She states that they told her that everything was good, there was no issues with her heart. Vitals (see flow sheet for details): stable SN findings today: Pt ambulating in the home. See above report. Pt feels that she gets anxious at times and she thinks that this affects her because of the pacemaker being new and she does not know what to expect. We spent much time discussing the purpose and operation of the pacemaker; pt has a monitoring device which is set up and operational and SN instructed her on this also. Pt has a lot of questions which SN answered the best of my ability. Pacemaker insertion site is clean and dry, steristrips are intact. No drainage or redness noted. Meds were reviewed and pt verbalizes compliance. Ptdoes not monitor her blood sugars at home and states that she needs to get more testing strips. See intervention summary for education details. Patient demonstrated a need for further skilled SN services for chronic disease management & education, wound/skin care and safety. Current Discharge plan: self-care RECOMMENDATION: Next visit to focus on (be specific): CP check and instructions documented in this encounterLima City Hospital06-13-2024 Patient's home Note* SN Routine - Keisha Westbrook RN - 11/23/2023 12:16 PM EDT SITUATION: Intermediate routine visit completed today. son also present during today's visit. patient reports the following: Allergies--reviewed Medications--reviewed current medications Falls--None BACKGROUND: Reason for Home Care: post pacemaker placement ASSESSMENT: SN greeted at door by patient no DME and demonstrates stable gait. Patient appears in no acute distress. Patient/CG concerns verbalized today: pt verbalizes that she went to ED yesterday because she felt a lump in her throat after eating and then generally did not feel good. She reports that she was at [facility] at the time and squad was called. She reports that they did many tests and gave her something to drink and this calmed down the feeling in her throat. She states that they told her that everything was good, there was no issues with her heart. Vitals (see flow sheet for details): stable SN findings today: Pt ambulating in the home. See above report. Pt feels that she gets anxious at times and she thinks that this affects her because of the pacemaker being new and she does not know what to expect. We spent much time discussing the purpose and operation of the pacemaker; pt has a monitoring device which is set up and operational and SN instructed her on this also. Pt has a lot of questions which SN answered the best of my ability. Pacemaker insertion site is clean and dry, steristrips are intact. No drainage or redness noted. Meds were reviewed and pt verbalizes compliance. Ptdoes not monitor her blood sugars at home and states that she needs to get more testing strips. See intervention summary for education details. Patient demonstrated a need for further skilled SN services for chronic disease management & education, wound/skin care and safety. Current Discharge plan: self-care RECOMMENDATION: Next visit to focus on (be specific): CP check and instructions [facility] Work Phone: 1(165) 811-102306-13-2024 Telephone encounter Note* Telephone Encounter - Evelin Martinez RN - 11/23/2023 8:13 AM EDT SN Hesham sent this message to on November 19: Patient began [facility] services today s/p pacemaker. Patient's BP noted to be in 160s. SN had patient take her second dose of hydralazine with no results. BP 168/64. Asymptomatic. SN attempted to contact office but only answering machine available. SN spoke with Virtualist. Virtualist advised follow-up SNV tomorrow. Patient declined to go to ED. Nursing will see patient in her home tomorrow. Nursing was scheduled to see patient on November 20 but the visit was unmade. Dr. Orozco asked me to defer this situation to you. Patient encouraged to make follow-up appointment with PCP. Thank you, Evelin Martinez RN [facility] Work Phone: [phone]) [phone] Miscellaneous Notes* Telephone Encounter - Evelin Martinez RN - 11/23/2023 8:13 AM EDT SN Hesham sent this message to on November 19: Patient began [facility] services today s/p pacemaker. Patient's BP noted to be in 160s. SN had patient take her second dose of hydralazine with no results. BP 168/64. Asymptomatic. SN attempted to contact office but only answering machine available. SN spoke with Virtualist. Virtualist advised follow-up SNV tomorrow. Patient declined to go to ED. Nursing will see patient in her home tomorrow. Nursing was scheduled to see patient on November 20 but the visit was unmade. Dr. Orozco asked me to defer this situation to you. Patient encouraged to make follow-up appointment with PCP. Thank you, Evelin Martinez RN documented in this encounterLima City Hospital06-12-2024 NoteHNO ID: [id number] Author: YU MANNING RN Service: ? Author Type: Registered Nurse Type: Progress Notes Filed: 11/22/2023 14:22 Note Text: TRANSITION CARE MANAGEMENT (TCM) FOLLOW-UP NOTE Provider Action/FYI Patient did not answer [employer] texts Called patient, no answer, left message Discharge Network Status: In-Network Discharge Summary: Discharged from [facility] on 11/15/2023 Admitted for pacemaker insertion Yu Manning RN November 22, 2023 2:21 [facility]06-12-2024 History of Present illness Narrative* Yu Manning RN - 11/22/2023 2:21 PM EDT TRANSITION CARE MANAGEMENT (TCM) FOLLOW-UP NOTE Provider Action/FYI Patient did not answer [employer] texts Called patient, no answer, left message Discharge Network Status: In-Network Discharge Summary: Discharged from [facility] on 11/15/2023 Admitted for pacemaker insertion Yu Manning RN November 22, 2023 2:21 PM documented in this encounterLima City Hospital06-12-2024 Miscellaneous Notes* HH CARE COORDINATION - Alvaro Medina LSW - 11/22/2023 9:15 AM EDT 11/22/23 9:26 AM - 9:28 AM ADMINISTRATIVE RESOURCES ASSOCIATE called the pt. and her voicemail came on. ADMINISTRATIVE RESOURCES ASSOCIATE left a message that MASSIELWwas calling regarding community resources and transportation. ADMINISTRATIVE RESOURCES ASSOCIATE left her name and phone number for the pt. to call ADMINISTRATIVE RESOURCES ASSOCIATE back. documented in this encounterLima City Hospital06-12-2024 Patient's home Note* HH CARE COORDINATION - Alvaro Medina LSW - 11/22/2023 9:15 AM EDT 11/22/23 9:26 AM - 9:28 AM ADMINISTRATIVE RESOURCES ASSOCIATE called the pt. and her voicemail came on. ADMINISTRATIVE RESOURCES ASSOCIATE left a message that LSWwas calling regarding community resources and transportation. ADMINISTRATIVE RESOURCES ASSOCIATE left her name and phone number for the pt. to call ADMINISTRATIVE RESOURCES ASSOCIATE back. [facility] Work Phone: [phone]) 580-154406-12-2024 NotePatient Outreach ([facility]) ANGELICA TORIBIO ([id number]) 1950 F Date Time Provider Department 11/22/23 YU MANNING [facility] During your visit today, we recorded the following information about you: Yu Manning RN 11/22/2023 2:22 PM Signed TRANSITION CARE MANAGEMENT (TCM) FOLLOW-UP NOTE Provider Action/FYI Patient did not answer [employer] texts Called patient, no answer, left message Discharge Network Status: In-Network Discharge Summary: Discharged from [facility] on 11/15/2023 Admitted for pacemaker insertion Yu Manning RN November 22, 2023 2:21 PM Allergies As of Date: 11/22/2023 Noted Allergy Reaction POISON JODI 12/17/2013 14 - Other: See Comments Comments: Poison Jodi rash ZOCOR (SIMVASTATIN) 03/21/2019 17 - Myalgia Comments: Muscle aches ACTOS (PIOGLITAZONE HCL) 07/19/2005 6 - Diarrhea ALTACE (RAMIPRIL) 07/19/2005 3 - Cough ARTHROTEC 50 (DICLOFENAC-MISOPROS*07/19/2005 8 - GI Upset AUGMENTIN (AMOXICILLIN-POT CLAVUL*02/26/2005 8 - GI Upset CELEBREX (CELECOXIB) 07/19/2005 CODEINE 02/26/2005 11 - Vomiting CRESTOR (ROSUVASTATIN CALCIUM) 07/19/2005 17 - Myalgia Comments: Muscle aches, tried two different times at low doses and had muscle cramping in legs DEMEROL (MEPERIDINE HCL) 02/26/2005 8 - GI Upset FELDENE (PIROXICAM) 07/19/2005 8 - GI Upset GLUCOPHAGE (METFORMIN HCL) 08/31/2013 8 - GI Upset Comments: diarrhea LASIX (FUROSEMIDE) 03/30/2005 Comments: dizzy LIPITOR (ATORVASTATIN CALCIUM) 07/19/2005 17 - Myalgia Comments: Muscle aches PRAVASTATIN 01/03/2012 14 - Other: See Comments Comments: muscle aches calf SULFA (SULFONAMIDE ANTIBIOTICS) 04/22/2005 8 - GI Upset TRICOR (FENOFIBRATE MICRONIZED) 07/19/2005 ZETIA (EZETIMIBE) 07/19/2005 6 - Diarrhea Date Reviewed: 11/20/2023 Reviewed by: Eveiln Martinez RN - Fully Assessed Reason for Visit: Transition Of Care [4074] Cmt: [employer] nonresponse single outreach Prescriptions as of 11/22/2023 - glimepiride (AMARYL) 4 mg tablet Take 1 tablet by mouth daily with breakfast. - biotin 5 mg tab Take 5 mg by mouth once daily. - amLODIPine (NORVASC) 10 mg tablet Take 1 tablet by mouth once daily. - acetaminophen (TYLENOL) 500 mg tablet Take 2 tablets by mouth every 8 hours as needed for pain. - hydrALAZINE (APRESOLINE) 25 mg tablet Take 1 tablet by mouth three times a day. - Cholecalciferol, Vitamin D3, 25 mcg (1,000 unit) cap Take 1 capsule by mouth once daily. - Blood Pressure Monitor 1 Each once daily. Meds Comments as of 05/02/2018: Tylenol Problem List As Of Date 11/22/2023 Noted Resolved LUMBAGO [M54.50] 03/30/2005 SCIATICA [M54.30] 03/30/2005 Generalized osteoarthritis of multiple sites [M*03/30/2005 Cardiovascular disease [I25.10] 04/22/2005 Chest pain, unspecified [R07.9] 04/22/2005 08/19/2013 MIXED HYPERLIPIDEMIA [E78.2] 04/22/2005 Hypertensive kidney disease with stage 3a chron*04/22/2005 EDEMA [R60.9] 11/08/2005 Type I (juvenile type) diabetes mellitus withou* 01/03/2012 MALAISE AND FATIGUE NEC [R53.81, R53.83] ANXIETY STATE NOS [F41.1] LUMBAR DISC DISPLACEMENT [M51.26] ARTHROPATHY NOS-L/LEG [M17.10] 01/19/2007 Bursitis of shoulder, left [M75.52] 08/19/2010 Vitamin D deficiency [E55.9] 10/29/2012 Cellulitis of buttock [L03.317] 12/07/2012 03/09/2020 Anxiety [F41.9] 01/26/2013 External hemorrhoids [K64.4] 09/01/2013 Stage 3a chronic kidney disease (HCC) [N18.31] 12/05/2013 PTSD (post-traumatic stress disorder) [F43.10] 12/26/2014 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] 12/26/2014 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] 12/26/2014 Reactive 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] 12/30/2014 Type 2 diabetes mellitus with stage 3a chronic *02/11/2016 Cutaneous horn [L85.8] 02/11/2016 Uncontrolled type 2 diabetes mellitus without c*07/14/2016 10/05/2018 Heart murmur, systolic [R01.1] 03/21/2019 Severe nonproliferative diabetic retinopathy of*10/12/2021 Exudative age-related macular degeneration of r*11/07/2022 Complete heart block (HCC) [I44.2] 11/05/2023 Sinoatrial node dysfunction (HCC) [I49.5] 11/08/2023 Presence of permanent cardiac pacemaker [Z95.0] 11/09/2023 Hypertensive urgency [I16.0] 11/09/2023 11/15/2023 UTI due to Klebsiella species [N39.0, B96.89] 11/09/2023 11/15/2023 JEREMIE (acute kidney injury) (HCC) [N17.9] 11/09/2023 11/15/2023 Other chest pain [R07.89] 11/09/2023 11/15/2023 Malnutrition of mild degree (HCC) [E44.1] 11/13/2023 Delirium [R41.0] 11/14/2023 11/15/2023 Encounter Status:Closed by YU MANNING on 11/22/23[facility] 11-21-2023 Miscellaneous Notes* CARE COORDINATION - Alvaro Medina LSW - 11/21/2023 9:45 AM EDT 11/21/23 9:51 AM - 9:53 AM ADMINISTRATIVE RESOURCES ASSOCIATE called [facility] and left a message for Erasto regarding if she received a referral for the pt. 11/21/23 9:53 AM - 9:54 AM ADMINISTRATIVE RESOURCES ASSOCIATE called the pt. and her voicemail came on but [employer]biox was full and unable to leave a message. 11/21/23 9:57 AM - 10:00 AM ADMINISTRATIVE RESOURCES ASSOCIATE received a phone call back from Erasto with [facility] regarding the pt. LM asked Erasto if she received a referral for the pt. while the pt. was in [facility] and she stated she did not receive a referral on the pt. documented in this encounterLima City Hospital06-11-2024 Patient's home Note* CARE COORDINATION - Alvaro Medina LSW - 11/21/2023 9:45 AM EDT 11/21/23 9:51 AM - 9:53 AM ADMINISTRATIVE RESOURCES ASSOCIATE called [facility] and left a message for Erasto regarding if she received a referral for the pt. 11/21/23 9:53 AM - 9:54 AM ADMINISTRATIVE RESOURCES ASSOCIATE called the pt. and her voicemail came on but [employer] was full and unable to leave a message. 11/21/23 9:57 AM - 10:00 AM LM received a phone call back from Erasto with [facility] regarding the pt. ADMINISTRATIVE RESOURCES ASSOCIATE asked Erasto if she received a referral for the pt. while the pt. was in [facility] and she stated she did not receive a referral on the pt. [facility] Work Phone: [phone]) 359-102606-10-2024 Telephone encounter Note* Telephone Encounter - Evelin Martinez RN - 11/20/2023 5:41 PM EDT Patient began [facility] services today s/p pacemaker. Patient's BP noted to be in 160s. SN had patient take her second dose of hydralazine with no results. BP 168/64. Asymptomatic. SN attempted to contact office but only answering machine available. SN spoke with Virtualist. Virtualist advised follow-up SNV tomorrow. Patient declined to go to ED. Nursing will see patient in her home tomorrow. Thank you, Evelin Martinez RN [facility] Work Phone: [phone]) 563-502606-10-2024 Miscellaneous Notes* Telephone Encounter - Evelin Martinez RN - 11/20/2023 5:41 PM EDT Patient began [facility] services today s/p pacemaker. Patient's BP noted to be in 160s. SN had patient take her second dose of hydralazine with no results. BP 168/64. Asymptomatic. SN attempted to contact office but only answering machine available. SN spoke with Virtualist. Virtualist advised follow-up SNV tomorrow. Patient declined to go to ED. Nursing will see patient in her home tomorrow. Thank you, Evelin Martinez RN documented in this encounterL[facility] Hospital06-10-2024 NoteHNO ID: [id number] Author: NEELAM ELIZABETH MD Service: ? Author Type: Physician Type: Progress Notes Filed: 11/20/2023 16:37 Note Text: Virtualist Progress Note Triage Call I have communicated my name and active licensure. The patient's identity and physical location were verified at the time of this visit. Either the patient or their legal medical field representative has been informed of the risks and benefits of -- and alternatives to -- treatment through a remote evaluation and consents to proceed with the evaluation remotely. Triage source: [facility] provider escalation Was patient downgraded (i.e. disposition other than go to the ED was advised)? Yes Mode of contact: Audio Only Visit HPI: Homecare RN called to report BP 168/64 today. Patient is asymptomatic Patient does not check her own BP Took her am medications Nurse Triage Disposition (If call is from [facility], [facility] nurse triage, or an Express Care, the disposition is Go to ED Now): Go to ED Now Virtualist Recommended Disposition: Follow-up with Home Care BP check tomorrow Signed in as Primary Virtualist, Secondary Virtualist, or [facility] Telehealth provider: Primary SIGNATURE: Neelam Elizabeth MD PATIENT NAME: Angelica Toribio DATE: November 20, 2023 [facility]06-10-2024 History of Present illness Narrative* Neelam Elizabeth MD - 11/20/2023 4:34 PM EDT Virtualist Progress Note Triage Call I have communicated my name and active licensure. The patient's identity and physical location wereverified at the time of this visit. Either the patient or their legal medical field representative has been informed of the risks and benefits of -- and alternatives to -- treatment through a remote evaluation andconsents to proceed with the evaluation remotely. Triage source: [facility] provider escalation Was patient downgraded (i.e. disposition other than go to the ED was advised)? Yes Mode of contact: Audio Only Visit HPI: Homecare RN called to report BP 168/64 today. Patient is asymptomatic Patient does not check her own BP Took her am medications Nurse Triage Disposition (If call is from [facility], [facility] nurse triage, or an Express Care, the disposition is Go to ED Now): Go to ED Now Virtualist Recommended Disposition: Follow-up with Home Care BP check tomorrow Signed in as Primary Virtualist, Secondary Virtualist, or [facility] Telehealth provider: Primary SIGNATURE: Neelam Elizabeth MD PATIENT NAME: Angelica Toribio DATE: November 20, 2023 documented in this encounterLima City Hospital06-10-2024 Miscellaneous Notes* SN SOC - Evelin Martinez RN - 11/20/2023 2:32 PM EDT SITUATION: Intermediate SOC visit completed today. friend also present during today's visit. patient reports the following: Allergies--reviewed Medications--full medication reconciliation completed Falls--None DME-Reviewed and added to chart BACKGROUND: Discharged/Referral from [facility] on 11/15/23 following treatment for Atrioventricular block, complete . Pertinent referral information or other diagnoses that may affect plan of care: Sciatica Generalized Osteoarthritis of Multiple Sites Displacement of Lumbar Intervertebral Disc Without Myelopathy Stage 3a Chronic Kidney Disease (Hcc) Type 2 Diabetes Mellitus With Stage 3a Chronic Kidney Disease, Without Long-Term Current Use of Insulin (Hcc) Complete Heart Block (Hcc) Sinoatrial Node Dysfunction (Hcc) Presence of Permanent Cardiac Pacemaker Hypertensive Urgency ASSESSMENT: SN greeted at door by patient no DME and demonstrates stable gait. Patient appears in no acute distress. Patient lives at home with significant other. Home environment: clean. SOC booklet reviewed & completed with patient and consent obtained for Home Care services. Patient/CG concerns verbalized today: none Vitals (see flow sheet for details): WDL except: Blood Pressure: 168/64; Dr. Orozco notified SN findings today: A&Ox4; forgetful with flat affect. Nonlabored breathing on room air; lungs clear throughout. Heart rate WNL; murmur noted. Pacemaker site noted 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s; steri strips intact. BSPx4. SN reviewed UTI prevention and s/s of UTI. No edema noted. SN reviewed all discharge paperwork and medications. Patient voices compliance with medications and activity restrictions.SN reviewed wound care instructions. Patient's BP noted to be in the 160's at the beginning of SNV;patient took second dose of hydralazine during SNV. SN took BP 50 minutees after dose with no results; BP 168/64. Asymptomatic. SN could not reach Dr. Orozco's office. SN paged Virtualist, Dr. Elizabeth and she recommended that patient check her BP and to have SNV tomorrow to follow up. SN sent Dr. Orozco a message regarding BP and today's visit. Patient has BP machine but does not know where cuff is. SN set up [employer] Communicator for patient and reviewed operating instructions a few times with patient. Patient is slow to speak and is easily distracted. Patient statesthat she's not going to make a follow-up appointment with Dr. Johnson because she's leaving that practice and will not state why; SN educated patient on importance of follow-up appointments. Patientdoes not have transportation to appointments. Patient lives in a two story duplex with single floorliving. Patient's significant other lives with her. SN unable to determine if patient or s/o are able to adhere to medications or to utilize communicator despite reviewing directions multiple times. ASSISTANT PRODUCTION EDITOR referral placed for transportation and resources. SN is diabetic and takes an oral hypoglycemic;SN educated patient on ADA and low sodium diet as well as diabetic foot care. See intervention summary for education details and skills performed. Plan of care and visit frequency established with patient and plan of care agreed upon. Patient demonstrated a need for further skilled SN services for medication education and wound/skincare. RECOMMENDATION: Visit Frequency: 3w1, 2w1, 1w2 Need for additional services: Patient agreeable to N/A referrals. Patient declined N/A referrals. Additional concerns to be followed up on: BP, follow-up appointments Next visit to focus on (be specific): c/p and wound assessment documented in this encounterLima City Hospital06-10-2024 Patient's home Note* SN SOC - Evelin Martinez RN - 11/20/2023 2:32 PM EDT SITUATION: Intermediate SOC visit completed today. friend also present during today's visit. patient reports the following: Allergies--reviewed Medications--full medication reconciliation completed Falls--None DME-Reviewed and added to chart BACKGROUND: Discharged/Referral from acute care hospital on 11/15/23 following treatment for Atrioventricular block, complete . Pertinent referral information or other diagnoses that may affect plan of care: Sciatica Generalized Osteoarthritis of Multiple Sites Displacement of Lumbar Intervertebral Disc Without Myelopathy Stage 3a Chronic Kidney Disease (Hcc) Type 2 Diabetes Mellitus With Stage 3a Chronic Kidney Disease, Without Long-Term Current Use of Insulin (Hcc) Complete Heart Block (Hcc) Sinoatrial Node Dysfunction (Hcc) Presence of Permanent Cardiac Pacemaker Hypertensive Urgency ASSESSMENT: SN greeted at door by patient no DME and demonstrates stable gait. Patient appears in no acute distress. Patient lives at home with significant other. Home environment: clean. SOC booklet reviewed & completed with patient and consent obtained for Home Care services. Patient/CG concerns verbalized today: none Vitals (see flow sheet for details): WDL except: Blood Pressure: 168/64; Dr. Orozco notified SN findings today: A&Ox4; forgetful with flat affect. Nonlabored breathing on room air; lungs clear throughout. Heart rate WNL; murmur noted. Pacemaker site noted 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s; steri strips intact. BSPx4. SN reviewed UTI prevention and s/s of UTI. No edema noted. SN reviewed all discharge paperwork and medications. Patient voices compliance with medications and activity restrictions.SN reviewed wound care instructions. Patient's BP noted to be in the 160's at the beginning of SNV;patient took second dose of hydralazine during SNV. SN took BP 50 minutees after dose with no results; BP 168/64. Asymptomatic. SN could not reach Dr. Orozco's office. SN paged Virtualist, Dr. Elizabeth and she recommended that patient check her BP and to have SNV tomorrow to follow up. SN sent Dr. Orozco a message regarding BP and today's visit. Patient has BP machine but does not know where cuff is. SN set up [employer] Communicator for patient and reviewed operating instructions a few times with patient. Patient is slow to speak and is easily distracted. Patient statesthat she's not going to make a follow-up appointment with Dr. Johnson because she's leaving that practice and will not state why; SN educated patient on importance of follow-up appointments. Patientdoes not have transportation to appointments. Patient lives in a two story duplex with single floorliving. Patient's significant other lives with her. SN unable to determine if patient or s/o are able to adhere to medications or to utilize communicator despite reviewing directions multiple times. ASSISTANT PRODUCTION EDITOR referral placed for transportation and resources. SN is diabetic and takes an oral hypoglycemic;SN educated patient on ADA and low sodium diet as well as diabetic foot care. See intervention summary for education details and skills performed. Plan of care and visit frequency established with patient and plan of care agreed upon. Patient demonstrated a need for further skilled SN services for medication education and wound/skincare. RECOMMENDATION: Visit Frequency: 3w1, 2w1, 1w2 Need for additional services: Patient agreeable to N/A referrals. Patient declined N/A referrals. Additional concerns to be followed up on: BP, follow-up appointments Next visit to focus on (be specific): c/p and wound assessment [facility] Work Phone: 1(142) 724-492306-10-2024 Telephone encounter Note* Telephone Encounter - Shanna Baptiste - 11/20/2023 11:13 AM EDT Prescription Refill Information The patient has been identified by name and date of : Yes Caregiver verified no other encounters exist for this prescription request: Yes Caregiver confirmed with patient/requestor that no other refills are due, in the near future, with this provider at this time: Yes The last office visit in the department: 10/2022 Does the patient have a future office visit with this provider/department: No Requested Prescriptions Pending Prescriptions Disp Refills glimepiride (AMARYL) 4 mg tablet 90 tablet 3 Sig: Take 1 tablet by mouth daily with breakfast. Shanna Baptiste November 20, 2023 11:13 AM [facility]06-10-2024 Miscellaneous Notes* Telephone Encounter - Shanna Baptiste - 11/20/2023 11:13 AM EDT Prescription Refill Information The patient has been identified by name and date of : Yes Caregiver verified no other encounters exist for this prescription request: Yes Caregiver confirmed with patient/requestor that no other refills are due, in the near future, with this provider at this time: Yes The last office visit in the department: 10/2022 Does the patient have a future office visit with this provider/department: No Requested Prescriptions Pending Prescriptions Disp Refills glimepiride (AMARYL) 4 mg tablet 90 tablet 3 Sig: Take 1 tablet by mouth daily with breakfast. Shanna Baptiste November 20, 2023 11:13 AM documented in this encounterLima City Hospital06-09-2024 Telephone encounter Note * Telephone Encounter - Evelin Martinez RN - 11/19/2023 3:50 PM EDT Called patient to confirm and schedule start of care visit. No answer. No voicemail available. [facility] Work Phone: [phone]) 519-774106-09-2024 Miscellaneous Notes* Telephone Encounter - Evelin Martinez RN - 11/19/2023 3:50 PM EDT Called patient to confirm and schedule start of care visit. No answer. No voicemail available. documented in this encounterLima City Hospital06-07-2024 Telephone encounter Note * Telephone Encounter - Ximena Devlin LPN - 11/17/2023 2:23 PM EDT Carmen Johnson MD Patient declined initially planned visit on 11/15/23. [facility] is planning on initiating services on 11/20/23. Please let us know if you are agreeable to this date. If we do not hear back, we will continue withthis planned date. Thank you, Ximena Devlin LPN Central Admissions Intake Nurse [facility] Work Phone: [phone]) 171-688006-07-2024 Miscellaneous Notes* Telephone Encounter - Ximena Devlin LPN - 11/17/2023 2:23 PM EDT Carmen Johnson MD Patient declined initially planned visit on 11/15/23. [facility] is planning on initiating services on 11/20/23. Please let us know if you are agreeable to this date. If we do not hear back, we will continue withthis planned date. Thank you, Ximena Devlin LPN Central Admissions Intake Nurse documented in this encounterLima City Hospital06-07-2024 Telephone encounter Note * Telephone Encounter - Misty Stover RN - 11/17/2023 2:15 PM EDT Patient was to be seen today for SOC. Upon calling to set up visit pt request SOC for Monday. SOC to be changed to Monday11/20/23. [facility] Work Phone: [phone]) 224-400706-07-2024 Miscellaneous Notes* Telephone Encounter - Misty Stover RN - 11/17/2023 2:15 PM EDT Patient was to be seen today for SOC. Upon calling to set up visit pt request SOC for Monday. SOC to be changed to Monday11/20/23. documented in this encounterLima City Hospital06-07-2024 Telephone encounter Note * Telephone Encounter - Flora Francisco RN - 11/17/2023 2:00 PM EDT Patient declined home health start of care (SOC) for 11/17/23. Patient requests SOC reschedule on 11/20/23 [facility] Work Phone: [phone] Miscellaneous Notes* Telephone Encounter - Flora Francisco RN - 11/17/2023 2:00 PM EDT Patient declined home health start of care (SOC) for 11/17/23. Patient requests SOC reschedule on 11/20/23 documented in this encounterLima City Hospital06-07-2024 History of Present illness Narrative* Yu Manning RN - 11/17/2023 1:23 PM EDT TRANSITION CARE MANAGEMENT (TCM) FOLLOW-UP NOTE Provider Action/FYI Patient did not answer [employer] texts Called patient, no answer, mailbox full Discharge Network Status: In-Network Discharge Summary: Discharged from [facility] on 11/15/2023 Admitted for pacemaker insertion Yu Manning RN November 17, 2023 1:23 PM documented in this encounterLima City Hospital06-07-2024 NoteHNO ID: [id number] Author: YU MANNING RN Service: ? Author Type: Registered Nurse Type: Progress Notes Filed: 11/17/2023 13:25 Note Text: TRANSITION CARE MANAGEMENT (TCM) FOLLOW-UP NOTE Provider Action/FYJonas Patient did not answer [employer] texts Called patient, no answer, mailbox full Discharge Network Status: In-Network Discharge Summary: Discharged from [facility] on 11/15/2023 Admitted for pacemaker insertion Yu Manning RN November 17, 2023 1:23 [facility]06-07-2024 NotePatient Outreach ([facility]) ANGELICA TORIBIO ([id number]) 1950 F Date Time Provider Department 11/17/23 YU MANNING During your visit today, we recorded the following information about you: Yu Manning RN 11/17/2023 1:25 PM Signed TRANSITION CARE MANAGEMENT (TCM) FOLLOW-UP NOTE Provider Action/FYI Patient did not answer [employer] texts Called patient, no answer, mailbox full Discharge Network Status: In-Network Discharge Summary: Discharged from [facility] on 11/15/2023 Admitted for pacemaker insertion Yu Manning RN November 17, 2023 1:23 PM Allergies As of Date: 11/17/2023 Noted Allergy Reaction POISON JODI 12/17/2013 14 - Other: See Comments Comments: Poison Jodi rash ZOCOR (SIMVASTATIN) 03/21/2019 17 - Myalgia Comments: Muscle aches ACTOS (PIOGLITAZONE HCL) 07/19/2005 6 - Diarrhea ALTACE (RAMIPRIL) 07/19/2005 3 - Cough ARTHROTEC 50 (DICLOFENAC-MISOPROS*07/19/2005 8 - GI Upset AUGMENTIN (AMOXICILLIN-POT CLAVUL*02/26/2005 8 - GI Upset CELEBREX (CELECOXIB) 07/19/2005 CODEINE 02/26/2005 11 - Vomiting CRESTOR (ROSUVASTATIN CALCIUM) 07/19/2005 17 - Myalgia Comments: Muscle aches, tried two different times at low doses and had muscle cramping in legs DEMEROL (MEPERIDINE HCL) 02/26/2005 8 - GI Upset FELDENE (PIROXICAM) 07/19/2005 8 - GI Upset GLUCOPHAGE (METFORMIN HCL) 08/31/2013 8 - GI Upset Comments: diarrhea LASIX (FUROSEMIDE) 03/30/2005 Comments: dizzy LIPITOR (ATORVASTATIN CALCIUM) 07/19/2005 17 - Myalgia Comments: Muscle aches PRAVASTATIN 01/03/2012 14 - Other: See Comments Comments: muscle aches calf SULFA (SULFONAMIDE ANTIBIOTICS) 04/22/2005 8 - GI Upset TRICOR (FENOFIBRATE MICRONIZED) 07/19/2005 ZETIA (EZETIMIBE) 07/19/2005 6 - Diarrhea Date Reviewed: 11/08/2023 Reviewed by: Margarita Henley, DEVONTE - Fully Assessed Reason for Visit: Transition Of Care [4074] Cmt: [employer] nonresponse single outreach Prescriptions as of 11/17/2023 - amLODIPine (NORVASC) 10 mg tablet Take 1 tablet by mouth once daily. - acetaminophen (TYLENOL) 500 mg tablet Take 2 tablets by mouth every 8 hours as needed for pain. - hydrALAZINE (APRESOLINE) 25 mg tablet Take 1 tablet by mouth three times a day. - Cholecalciferol, Vitamin D3, 25 mcg (1,000 unit) cap Take 1 capsule by mouth once daily. - glimepiride (AMARYL) 4 mg tablet Take 1 tablet by mouth daily with breakfast. - Blood Pressure Monitor 1 Each once daily. Meds Comments as of 05/02/2018: Tylenol Problem List As Of Date 11/17/2023 Noted Resolved LUMBAGO [M54.50] 03/30/2005 SCIATICA [M54.30] 03/30/2005 Generalized osteoarthritis of multiple sites [M*03/30/2005 Cardiovascular disease [I25.10] 04/22/2005 Chest pain, unspecified [R07.9] 04/22/2005 08/19/2013 MIXED HYPERLIPIDEMIA [E78.2] 04/22/2005 Hypertensive kidney disease with stage 3a chron*04/22/2005 EDEMA [R60.9] 11/08/2005 Type I (juvenile type) diabetes mellitus withou* 01/03/2012 MALAISE AND FATIGUE NEC [R53.81, R53.83] ANXIETY STATE NOS [F41.1] LUMBAR DISC DISPLACEMENT [M51.26] ARTHROPATHY NOS-L/LEG [M17.10] 01/19/2007 Bursitis of shoulder, left [M75.52] 08/19/2010 Vitamin D deficiency [E55.9] 10/29/2012 Cellulitis of buttock [L03.317] 12/07/2012 03/09/2020 Anxiety [F41.9] 01/26/2013 External hemorrhoids [K64.4] 09/01/2013 Stage 3a chronic kidney disease (HCC) [N18.31] 12/05/2013 PTSD (post-traumatic stress disorder) [F43.10] 12/26/2014 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] 12/26/2014 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] 12/26/2014 Reactive 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] 12/30/2014 Type 2 diabetes mellitus with stage 3a chronic *02/11/2016 Cutaneous horn [L85.8] 02/11/2016 Uncontrolled type 2 diabetes mellitus without c*07/14/2016 10/05/2018 Heart murmur, systolic [R01.1] 03/21/2019 Severe nonproliferative diabetic retinopathy of*10/12/2021 Exudative age-related macular degeneration of r*11/07/2022 Complete heart block (HCC) [I44.2] 11/05/2023 Sinoatrial node dysfunction (HCC) [I49.5] 11/08/2023 Presence of permanent cardiac pacemaker [Z95.0] 11/09/2023 Hypertensive urgency [I16.0] 11/09/2023 11/15/2023 UTI due to Klebsiella species [N39.0, B96.89] 11/09/2023 11/15/2023 JEREMIE (acute kidney injury) (HCC) [N17.9] 11/09/2023 11/15/2023 Other chest pain [R07.89] 11/09/2023 11/15/2023 Malnutrition of mild degree (HCC) [E44.1] 11/13/2023 Delirium [R41.0] 11/14/2023 11/15/2023 Encounter Status:Closed by YU MANNING on 11/17/23[facility] 11-16-2023 Telephone encounter Note* Telephone Encounter - Natacha Leos (Rn), RN - 11/16/2023 8:44 PM EDT Patient calling for health information: medication changes from hospital Reviewed current medication list with the patient. Advised patient to call PCP during open hours for any further questions Patient denies any new or worsening symptoms of which a provider is not aware:Yes . [facility]06-06-2024 Miscellaneous Notes* Telephone Encounter - Natacha Leos), RN - 11/16/2023 8:44 PM EDT Patient calling for health information: medication changes from hospital Reviewed current medication list with the patient. Advised patient to call PCP during open hours for any further questions Patient denies any new or worsening symptoms of which a provider is not aware:Yes . documented in this encounterLima City Hospital06-06-2024 Telephone encounter Note * Telephone Encounter - Navarro Cody - 11/16/2023 10:33 AM EDT Called patient to confirm and schedule start of care visit. No answer. No message left. Thanks Navarro Cody Die Cast Operator [facility]06-06-2024 Miscellaneous Notes* Telephone Encounter - Navarro Cody - 11/16/2023 10:33 AM EDT Called patient to confirm and schedule start of care visit. No answer. No message left. Thanks Navarro Cody Die Cast Operator documented in this encounterLima City Hospital06-05-2024 Telephone encounter Note * Telephone Encounter - Carmen Johnson MD - 11/15/2023 3:27 PM EDT Agreeable and will sign [facility]06-05-2024 Miscellaneous Notes* Telephone Encounter - Carmen Johnson MD - 11/15/2023 3:27 PM EDT Agreeable and will sign * Telephone Encounter - Erna Lara LPN - 11/14/2023 5:31 PM EDT Carmen Johnson MD Please advise if you are agreeable to signing and following for HHC services? Our Clinicians will be sending the Plan of Care to you for review and approval. They will reach out for any appropriate orders required to provide home care services for the patient. We are not able to initiate HHC services without a following provider. Home care clinicians may also obtain orders from [facility] Virtualist Providers Thank you and we would be happy to answer any questions. Erna Lara LPN 11/14/2023 5:31 PM documented in this encounterLima City Hospital06-05-2024 NoteHNO ID: [id number] Author: SHARATH PEREZ RN Service: Care Management Author Type: Registered Nurse Type: Care Mgt Progress Note Filed: 11/15/2023 14:57 Note Text: CARE MANAGEMENT DISCHARGE NOTE SERVICE DATE: November 15, 2023 SERVICE TIME: 2:55 PM Admission Date: 11/05/2023 LOS: 10 days Discharge Arrangement Discharge Arrangement: Home with Home Health Services Arranged Provider Name: [facility] Caregiver Assessment Caregiver is ready, willing and able to meet the patient's needs as recommended by the inter-professional team: No Transportation Arrangements Transportation Arrangements: Taxi Cab Handoff Communication: Additional Information: Pt D/C to home today with home care thru [facility]. SN visits ordered. Pt was sent home by cab. Notified [facility] that pt was D/C today and that HHC orders are in Epic. [phone] SIGNATURE: Sharath Perez RN PATIENT NAME: Angelica Marium Toribio DATE: November 15, 2023 TIME: 2:55 PM CONTACT #: [phone] [facility] Note HNO ID: [id number] Author: ALONSO العراقي RPh Service: Pharmacy Author Type: Pharmacist Type: Plan of Care Filed: 11/15/2023 12:27 Note Text: DISCHARGE MEDICATION REVIEW BY PHARMACY Patient Name: Angelica Toribio Account #: Data Unavailable Admission Date: 11/05/2023 Date of Contact: November 15, 2023 Time of Contact: 12:27 PM Medication list was reviewed by a Pharmacist for drug interactions or drug related problems:Yes Below is a summary of pharmacist recommendations discussed with LIP: No Recommendations at this time from Discharge Medication List. Alonso العراقي bao November 15, 2023 12:27 PM Pager: [phone] 11/15/2023 12:27 PM Medication List START taking these medications acetaminophen 500 mg tablet Commonly known as: TYLENOL Take 2 tablets by mouth every 8 hours as needed for pain. amLODIPine 10 mg tablet Commonly known as: NORVASC Take 1 tablet by mouth once daily. Start taking on: November 16, 2023 hydrALAZINE 25 mg tablet Commonly known as: APRESOLINE Take 1 tablet by mouth three times a day. CONTINUE taking these medications Blood Pressure Monitor 1 Each once daily. Cholecalciferol (Vitamin D3) 25 mcg (1,000 unit) Cap Take 1 capsule by mouth once daily. glimepiride 4 mg tablet Commonly known as: AMARYL Take 1 tablet by mouth daily with breakfast. STOP taking these medications indapamide 1.25 mg tablet Commonly known as: LOZOL Where to Get Your Medications These medications were sent to [facility] [address] [place] [id number] [place] [phone] [place] [id number] amLODIPine 10 mg tablet [facility]ALAZINE [facility] NoteHNO ID: [id number] Author: SHARATH PEREZ RN Service: Care Management Author Type: Registered Nurse Type: Care Mgt Progress Note Filed: 11/15/2023 14:54 Note Text: CARE MANAGEMENT PROGRESS NOTE SERVICE DATE: 11/15/2023 SERVICE TIME: 2:54 PM LOS: 10 days IMM Follow Up Copy Given: Yes Copy given to:: Patient Method: In Person SIGNATURE: Sharath Perez RN PATIENT NAME: Angelica Toribio DATE: November 15, 2023 TIME: 2:54 PM PAGER/CONTACT #: [phone] [facility] 11-15-2023 NoteHNO ID: [id number] Author: SHARATH PEREZ RN Service: Care Management Author Type: Registered Nurse Type: Care Mgt Progress Note Filed: 11/15/2023 11:05 Note Text: CARE MANAGEMENT PROGRESS NOTE SERVICE DATE: 11/15/2023 SERVICE TIME: 11:02 AM LOS: 10 days Anticipate D/C to home today. [facility] will follow for pt for residential needs. She is agreeable, now to [facility] . [facility] orders are in Epic. Transport home may need to be set up, ok to call cab for pt. SIGNATURE: Sharath Perez RN PATIENT NAME: Angelica Toribio DATE: November 15, 2023 TIME: 10:59 AM PAGER/CONTACT #: [phone] [facility] 11-15-2023 Telephone encounter Note* Telephone Encounter - Israel Vidal - 11/15/2023 9:12 AM EDT Date/Time: 11/15/2023 9:14 AM Spoke with Angelica @ phone #: [phone] - Preferred # for contact: [phone] Have you received help from a home care company in the last 60 days? no Are you agreeable to [facility] services? yes What address will we be seeing you at? [address] [address] Do you have any upcoming appointments or things we need to schedule around? no Do you have a teachable CG or can you manage your care independently? [facility] Work Phone: [phone] Miscellaneous Notes* Telephone Encounter - Israel Vidal - 11/15/2023 9:12 AM EDT Date/Time: 11/15/2023 9:14 AM Spoke with Angelica @ phone #: [phone] - Preferred # for contact: [phone] Have you received help from a home care company in the last 60 days? no Are you agreeable to [facility] services? yes What address will we be seeing you at? [address] [facility] [address] Do you have any upcoming appointments or things we need to schedule around? no Do you have a teachable CG or can you manage your care independently? documented in [facility] Telephone encounter Note * Telephone Encounter - Enra Lara LPN - 11/14/2023 5:31 PM EDT Carmen Johnson MD Please advise if you are agreeable to signing and following for HHC services? Our Clinicians will be sending the Plan of Care to you for review and approval. They will reach out for any appropriate orders required to provide home care services for the patient. We are not able to initiate HHC services without a following provider. Home care clinicians may also obtain orders from [facility] Virtualist Providers Thank you and we would be happy to answer any questions. Erna Lara LPN 11/14/2023 5:31 PM [facility] Work Phone: [phone]) 155-592006-04-2024 NoteHNO ID: [id number] Author: SHARATH PEREZ RN Service: Care Management Author Type: Registered Nurse Type: Care Mgt Progress Note Filed: 11/14/2023 16:55 Note Text: CARE MANAGEMENT PROGRESS NOTE SERVICE DATE: 11/14/2023 SERVICE TIME: 4:53 PM LOS: 9 days Per message from attending. Pt is agreeable to home care for SN. Referral placed to [facility]. Waiting on response , if able to accept. HHC orders are in Epic. SIGNATURE: Sharath Perez RN PATIENT NAME: Angelica Toribio DATE: November 14, 2023 TIME: 4:53 PM PAGER/CONTACT #: [phone] [facility] 11-14-2023 NoteHNO ID: [id number] Author: CORWIN ORELLANA DO Service: Hospital Medicine Author Type: Physician Type: Progress Notes Filed: 11/14/2023 16:23 Note Text: DEPARTMENT OF HOSPITAL MEDICINE PROGRESS NOTE SERVICE DATE: 11/14/2023 SERVICE TIME: 3:54 PM Hospital Medicine/Primary Attending: Corwin Orellana DO NIGHT AND WEEKEND COVERAGE: [place] COVERAGE: After 7pm, please call cross cover pager #[phone] Subjective INTERVAL HPI: Patient calm but again demonstrates poor short term memory. She is more open to talk about past now but again unable to discuss short term events Had EP come by again Enrique came by and discussed discharge instructions with postimplantation restrictions. I went in afterwards and patient recalls man coming in but states he didn't tell her anything. I asked if he talked about weight restrictions, out to monitor wound etc and she said no [place] then went to review how to use latitude home monitor and again went over same discharge information. Again unable to recall instructions. Nurse went in afterwards and patient did not recall conversations that just happened. EP avised that a family member or HHC to be home Patient refusing HHC at this time I called Lupillo (JOSÉ). He does not drive and is currently at his father's house. He was noncommittal to helping patient and didn't state if he would be able to get to her house. There are no other contacts available. I do not feel that patient has delirium. All acute issues have resolved for some time now. She also is showing signs of longitudinal float operator memory and is alert and oriented but very poor comprehension or short term memory. Lupillo unable to give baseline. I am concerned about patient going home alone with PPM in place and unable to follow instructions. This could lead to an unsafe discharge. Psych stated in note that her judgement is impaired and insight is limited. However, recommended against pursing guardianship at this time. Will reach out to psych again given unclear how to proceed further in order to get to a safe discharge plan Psych saw patient today - : Patient did not appear delirious today, as she was alert, oriented x3 and showed good attention. Patient scored an 18/30 on the MOCA, indicating mild cognitive impairment/early dementia. Regarding concern over discharge disposition, patient is adamant her significant other can sufficiently help her, and would like to have him come in to meet with the primary team to show this. The degree of cognitive impairment is not sufficient to require inpatient geriatric psychiatry admission. Psychiatry recommends outpatient neurocognitive testing and follow up. Additionally, given the lack of reliable collateral information, a diagnosis of major neurocognitive disorder (dementia) cannot and should not be made, as there is not sufficient information regarding time course, symptom onset, etc. Thus advise exercising caution if filing for guardianship, as we cannot say with certainty whether patient's cognitive impairment is her baseline or if it could improve. Given this I talked to Sergey again. Sergey's father was also on the phone. Sergey has developmental delay but his father believes he would be able to follow instructions. Sergey is usually not the caregiver and his father and Angelica has been taking care of Sergey (58). Sergey cannot drive and his father has new MSK issues so unable to drive as well. Sergey's father will ask another son to take sergey over to Angelica's house tomorrow to assist in care for now. She is also now agreeable to residential Current Facility-Administered Medications Medication Dose Route Frequency NaCl 0.9% iv flush bag 20 mL INTRAVENOUS PRN hydrALAZINE 10 mg injection (APRESOLINE) 10 mg INTRAVENOUS q 6 H PRN melatonin 6 mg tab(s) 6 mg ORAL DAILY (8 PM) acetaminophen 1,000 mg tab(s) (TYLENOL) 1,000 mg ORAL q [address] 20 mg tab(s) (PROTONIX) 20 mg ORAL DAILY (6 AM) oxyCODONE IR 5 mg tab(s) (ROXICODONE) 5 mg ORAL q 6 H PRN amLODIPine 10 mg tab(s) (NORVASC) 10 mg ORAL DAILY hydrALAZINE 10 mg tab(s) (APRESOLINE) 10 mg ORAL q 8 H dextrose 15 gram/32 mL 15 g (TRUEPLUS) 15 g ORAL PRN Or glucagon 1 mg injection 1 mg INTRAMUSCULAR PRN Or dextrose 10% iv bolus 12.5 g INTRAVENOUS PRN insulin lispro injection (rapid acting) (ADMElog) SUBCUTANEOUS w MEALS hydrOXYzine HCl 25 mg tab(s) (ATARAX) 25 mg ORAL q 6 H PRN LORazepam 0.5 mg tab(s) (ATIVAN) 0.5 mg ORAL BID PRN polyethylene glycol 3350 17 g packet 17 g ORAL DAILY PRN senna-docusate 8.6-50 mg 1 tablet (SENNA-S) 1 tablet ORAL BID PRN Objective PHYSICAL EXAM: BP 142/71 Pulse 83 Temp (Src) 97.7 (Oral) Resp 18 Ht 5' 0 (1.52m) Wt 136 lb 3.9 oz (61.8kg) SpO2 98% BMI 26.61 kg/(m2). O2 Therapy: Room Air Physical Exam Performed General: NAD, well developed, vitals as above HENT: Normocephalic, atraumatic, mucous membranes moist Eyes: No scleral ic (more content not included)...[facility] 11-13-2023 NoteHNO ID: [id number] Author: CORWIN ORELLANA DO Service: Hospital Medicine Author Type: Physician Type: Progress Notes Filed: 11/13/2023 17:58 Note Text: DEPARTMENT OF HOSPITAL MEDICINE PROGRESS NOTE SERVICE DATE: 11/13/2023 SERVICE TIME: 5:46 PM Hospital Medicine/Primary Attending: Corwin Orellana DO NIGHT AND WEEKEND COVERAGE: [employer] COVERAGE: After 7pm, please call cross cover pager #[phone] Subjective INTERVAL HPI: Patient calm but again demonstrates poor short term memory. She is more open to talk about past now but again unable to discuss short term events Had EP come by again today Enrique came by and discussed discharge instructions with postimplantation restrictions. I went in afterwards and patient recalls man coming in but states he didn't tell her anything. I asked if he talked about weight restrictions, out to monitor wound etc and she said no [place] then went to review how to use latitude home monitor and again went over same discharge information. Again unable to recall instructions. Nurse went in afterwards and patient did not recall conversations that just happened. EP avised that a family member or HHC to be home Patient refusing HHC at this time I called Lupillo ([place]). He does not drive and is currently at his father's house. He was noncommittal to helping patient and didn't state if he would be able to get to her house. There are no other contacts available. I do not feel that patient has delirium. All acute issues have resolved for some time now. She also is showing signs of detention memory and is alert and oriented but very poor comprehension or short term memory. Lupillo unable to give baseline. I am concerned about patient going home alone with PPM in place and unable to follow instructions. This could lead to an unsafe discharge. Psych stated in note that her judgement is impaired and insight is limited. However, recommended against pursing guardianship at this time. Will reach out to psych again given unclear how to proceed further in order to get to a safe discharge plan Current Facility-Administered Medications Medication Dose Route Frequency NaCl 0.9% iv flush bag 20 mL INTRAVENOUS PRN hydrALAZINE 10 mg injection (APRESOLINE) 10 mg INTRAVENOUS q 6 H PRN melatonin 6 mg tab(s) 6 mg ORAL DAILY (8 PM) acetaminophen 1,000 mg tab(s) (TYLENOL) 1,000 mg ORAL q [address] 20 mg tab(s) (PROTONIX) 20 mg ORAL DAILY (6 AM) oxyCODONE IR 5 mg tab(s) (ROXICODONE) 5 mg ORAL q 6 H PRN amLODIPine 10 mg tab(s) (NORVASC) 10 mg ORAL DAILY hydrALAZINE 10 mg tab(s) (APRESOLINE) 10 mg ORAL q 8 H dextrose 15 gram/32 mL 15 g (TRUEPLUS) 15 g ORAL PRN Or glucagon 1 mg injection 1 mg INTRAMUSCULAR PRN Or dextrose 10% iv bolus 12.5 g INTRAVENOUS PRN insulin lispro injection (rapid acting) (ADMElog) SUBCUTANEOUS w MEALS hydrOXYzine HCl 25 mg tab(s) (ATARAX) 25 mg ORAL q 6 H PRN LORazepam 0.5 mg tab(s) (ATIVAN) 0.5 mg ORAL BID PRN polyethylene glycol 3350 17 g packet 17 g ORAL DAILY PRN senna-docusate 8.6-50 mg 1 tablet (SENNA-S) 1 tablet ORAL BID PRN Objective PHYSICAL EXAM: BP 145/78 Pulse 75 Temp (Src) 98.9 (Oral) Resp 18 Ht 5' 0 (1.52m) Wt 136 lb 3.9 oz (61.8kg) SpO2 96% BMI 26.61 kg/(m2). O2 Therapy: Room Air Physical Exam Performed General: NAD, well developed, vitals as above HENT: Normocephalic, atraumatic, mucous membranes moist Eyes: No scleral icterus, extraocular movements intact, Conjuctivae normal, PERRL Cardiovascular: RRR, No murmur, no gallops, radial pulses 2+ bilaterally, no edema Pulmonary: Respiratory effort normal, no resp distress. CTAB, no wheezes, rhonchi or rales. Abdominal: No distention, abdomen soft. No mass. Nontender to palpation MSK: normal range of motion, no joint swelling Skin: Warm and dry Neurological: No focal deficits presents. CN 2-12 grossly intact. Psych: Alert, oriented x 3 but poor insight or short term memory Lines, Drains, and Airways Line Duration Peripheral 11/05/23 1418 Right Forearm 20 Gauge 8 days DATA: Diagnostic tests reviewed for today's visit: Most recent labs Most recent imaging Assessment/Plan Problem List Presence of permanent cardiac pacemaker (POA: Status not on file) Complete heart block (HCC) (POA: Yes) Sinoatrial node dysfunction (HCC) (POA: Status not on file) Hypertensive urgency (POA: Status not on file) UTI due to Klebsiella species (POA: Status not on file) JEREMIE (acute kidney injury) (HCC) (POA: Status not on file) Other chest pain (POA: Status not on file) Malnutrition of mild degree (HCC) (POA: Status not on file) HOSPITAL COURSE:Ms. Angelica Toribio is a 73 year old female with PMH significant for T2DM [well-controlled], HTN, HLD, CAD, depression, and CKD. She presented on 11/05/2023 with pelvic / RLQ abdominal pain and dysuria that began acutely that morning [~ 5 AM]. On further prompting, she also endorsed dyspnea on exer (more content not included)...[facility]06-03-2024 NoteHNO ID: [id number] Author: JERSEY GAO, DEVONTE Service: Electrophysiology Author Type: Registered Nurse Type: Progress Notes Filed: 11/13/2023 16:57 Note Text: I attempted to review discharge information with patient. Unsure of what she comprehends. Coworker attempted to review same information on 11-08-23. Patient does not recall that instruction, or being shown Latitude home monitor. Red folder given with our phone number in bold letters on this red folder. Advised to have family member at home or home health person call us to review this information when she gets home. Ximena [facility]06-03-2024 NoteHNO ID: [id number] Author: SHARATH PEREZ, RN Service: Care Management Author Type: Registered Nurse Type: Care Mgt Progress Note Filed: 11/13/2023 16:01 Note Text: CARE MANAGEMENT PROGRESS NOTE SERVICE DATE: 11/13/2023 SERVICE TIME: 3:59 PM LOS: 8 days Recommended home therapy at D/C. CM spoke to pt this AM and pt has declined home therapy. Stating she does not need it. Pt will be transported home today by cab. RN to call [employer] once pt is ready for D/C. SIGNATURE: Sharath Perez RN PATIENT NAME: Angelica Toribio DATE: November 13, 2023 TIME: 3:59 PM PAGER/CONTACT #: [phone] [facility] 11-13-2023 NoteHNO ID: [id number] Author: SHARATH PEREZ RN Service: Care Management Author Type: Registered Nurse Type: Care Mgt Progress Note Filed: 11/13/2023 16:25 Note Text: CARE MANAGEMENT PROGRESS NOTE SERVICE DATE: 11/13/2023 SERVICE TIME: 4:25 PM LOS: 8 days IMM Follow Up Copy Given: Yes Copy given to:: Patient Method: By Phone SIGNATURE: Sharath Perez RN PATIENT NAME: Angelica Toribio DATE: November 13, 2023 TIME: 4:25 PM PAGER/CONTACT #: [phone] [facility]ty Hospital 11-12-2023 NoteHNO ID: [id number] Author: CORWIN ORELLANA DO Service: Hospital Medicine Author Type: Physician Type: Progress Notes Filed: 11/13/2023 07:47 Note Text: DEPARTMENT OF HOSPITAL MEDICINE PROGRESS NOTE SERVICE DATE: 11/12/2023 SERVICE TIME: 3:01 PM Hospital Medicine/Primary Attending: Corwin Orellana DO NIGHT AND WEEKEND COVERAGE: [place] COVERAGE: After 7pm, please call cross cover pager #[phone] Subjective INTERVAL HPI: Patient with pain around pacemaker site, improving. She is much more calm today and able to recall a lot more history. Very pleasant. Apologetic. Understanding why emergency contact was needed now. Able to recall more events of stay. Current Facility-Administered Medications Medication Dose Route Frequency NaCl 0.9% iv flush bag 20 mL INTRAVENOUS PRN hydrALAZINE 10 mg injection (APRESOLINE) 10 mg INTRAVENOUS q 6 H PRN melatonin 6 mg tab(s) 6 mg ORAL DAILY (8 PM) acetaminophen 1,000 mg tab(s) (TYLENOL) 1,000 mg ORAL q [address] 20 mg tab(s) (PROTONIX) 20 mg ORAL DAILY (6 AM) oxyCODONE IR 5 mg tab(s) (ROXICODONE) 5 mg ORAL q 6 H PRN amLODIPine 10 mg tab(s) (NORVASC) 10 mg ORAL DAILY hydrALAZINE 10 mg tab(s) (APRESOLINE) 10 mg ORAL q 8 H sodium chloride 0.9 % (flush) 2-10 mL (BD POSIFLUSH) 2-10 mL INTRAVENOUS DIRECTED PRN And perflutren lipid microspheres 1.1 mg/mL 1.3 mL injection (DEFINITY) 1.3 mL INTRAVENOUS DIRECTED PRN dextrose 15 gram/32 mL 15 g (TRUEPLUS) 15 g ORAL PRN Or glucagon 1 mg injection 1 mg INTRAMUSCULAR PRN Or dextrose 10% iv bolus 12.5 g INTRAVENOUS PRN insulin lispro injection (rapid acting) (ADMElog) SUBCUTANEOUS w MEALS hydrOXYzine HCl 25 mg tab(s) (ATARAX) 25 mg ORAL q 6 H PRN LORazepam 0.5 mg tab(s) (ATIVAN) 0.5 mg ORAL BID PRN Objective PHYSICAL EXAM: BP 159/70 Pulse 84 Temp (Src) 98.6 (Oral) Resp 18 Ht 5' 0 (1.52m) Wt 143 lb 4.8 oz (65.0kg) SpO2 97% BMI 27.99 kg/(m2). O2 Therapy: Room Air Physical Exam Performed General: NAD, well developed, vitals as above HENT: Normocephalic, atraumatic, mucous membranes moist Eyes: No scleral icterus, extraocular movements intact, Conjuctivae normal, PERRL Cardiovascular: RRR, No murmur, no gallops, radial pulses 2+ bilaterally, no edema Pulmonary: Respiratory effort normal, no resp distress. CTAB, no wheezes, rhonchi or rales. Abdominal: No distention, abdomen soft. No mass. Nontender to palpation MSK: normal range of motion, no joint swelling Skin: Warm and dry Neurological: No focal deficits presents. CN 2-12 grossly intact. Psych: Alert, oriented x 3 but not aware of situation Lines, Drains, and Airways Line Duration Peripheral 11/05/23 1418 Right Forearm 20 Gauge 7 days DATA: Diagnostic tests reviewed for today's visit: Most recent labs Most recent imaging Assessment/Plan Problem List Complete heart block (HCC) (POA: Yes) Sinoatrial node dysfunction (HCC) (POA: Status not on file) Presence of permanent cardiac pacemaker (POA: Status not on file) Hypertensive urgency (POA: Status not on file) UTI due to Klebsiella species (POA: Status not on file) JEREMIE (acute kidney injury) (HCC) (POA: Status not on file) Other chest pain (POA: Status not on file) HOSPITAL COURSE:Ms. Angelica Toribio is a 73 year old female with PMH significant for T2DM [well-controlled], HTN, HLD, CAD, depression, and CKD. She presented on 11/05/2023 with pelvic / RLQ abdominal pain and dysuria that began acutely that morning [~ 5 AM]. On further prompting, she also endorsed dyspnea on exertion for the past month [with walking from her bedroom to the bathroom], orthopnea, and intermittent chest pain, and a near-syncopal episode a few weeks prior [which she attributed to dehydration]. In the ED, initial lab work was significant for JEREMIE on CKD and UA concerning for infection [for which she was started on ceftriaxone]. EKG on arrival was concerning for bradycardia and 2nd-degree AV block [2:1]. She was subsequently admitted to the CVICU, treated with ceftriaxone for her Klebsiella UTI [symptoms of which have resolved], and underwent successful PPM placement on 11/07/[address] Orozco with no overt 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s. Principal Problem: Complete heart block (HCC) Assessment AND Plan: s/p PPM 11/06. Discussed with EP. Limited echo - Trivial pericaradial effusion, minimal organized exudate; no evidence of hemodynamic compromise. Discussed with EP, no need to monitor on tele Will have EP come by tomorrow to discuss PPM management to see if patient able to now comprehend Active Problems: Hypertensive urgency Assessment AND Plan: Improved. Continue norvasc and hydralazine UTI due to Klebsiella species Assessment AND Plan: Finished ceftriaxone CKD stage IIIa Assessment AND Plan: appears stable Other chest pain Assessment AND Plan: From pacemaker - supportive cares T2DM - not insulin dependent SSI CXR from 11/07 with Suggestion of (more content not included)...[facility]05-29-2024 Telephone encounter Note* Telephone Encounter - VamsiHaven ventura - 11/08/2023 1:47 PM EDT Follow up(s) scheduled. Patient to be notified upon discharge. Haven Sarmiento [facility]05-29-2024 Miscellaneous Notes* Telephone Encounter - VamsilorenzoHaven - 11/08/2023 1:47 PM EDT Follow up(s) scheduled. Patient to be notified upon discharge. Haven Sarmiento * Telephone Encounter - Ximena Maciel APRN.CNP - 11/08/2023 12:45 PM EDT Please arrange wound check in 1 week (phone call). Patient underwent implantation of dual-chamber pacemaker with Dr. Orozco 11/07/2023. She will then need annual follow-up with Dr. Orozco or RODNEY. She is still currently hospitalized. Thank you. Ximena Maciel APRN.[employer] documented in this encounter[facility]05-29-2024 Telephone encounter Note * Telephone Encounter - Ximena Maciel APRN.CNP - 11/08/2023 12:45 PM EDT Please arrange wound check in 1 week (phone call). Patient underwent implantation of dual-chamber pacemaker with Dr. Orozco 11/07/2023. She will then need annual follow-up with Dr. Orozco or RODNEY. She is still currently hospitalized. Thank you. Ximena Maciel APRN.[employer] [facility] Work Phone: 1(332) 714-716704-22-2024 Telephone encounter Note* Telephone Encounter - Lindsay Paniagua RN - 10/02/2023 4:13 PM EDT Patient has been identified by name and date of : Yes, Lindsay Paniagua RN Date 10/02/2023 Time 4:10 pm Patient phones for refill(s): Requested Prescriptions Pending Prescriptions Disp Refills indapamide (LOZOL) 1.25 mg tablet 90 tablet 3 Sig: Take 1 tablet by mouth once daily. Date of last office visit in primary care: 10/14/2022 Date of next office visit in primary care: 10/09/2023 Completely out of medication. Please advise. Thank you. Lindsay Paniagua RN. [facility]04-22-2024 Miscellaneous Notes* Telephone Encounter - Lindsay Paniagua RN - 10/02/2023 4:13 PM EDT Patient has been identified by name and date of : Yes, Lindsay Paniagua RN Date 10/02/2023 Time 4:10 pm Patient phones for refill(s): Requested Prescriptions Pending Prescriptions Disp Refills indapamide (LOZOL) 1.25 mg tablet 90 tablet 3 Sig: Take 1 tablet by mouth once daily. Date of last office visit in primary care: 10/14/2022 Date of next office visit in primary care: 10/09/2023 Completely out of medication. Please advise. Thank you. Lindsay Paniagua RN. documented in this encounterL[facility]04-18-2024 Miscellaneous Notes* Telephone Encounter - Marita Maciel RN - 09/28/2023 3:36 PM EDT Patient calls and notified that she needs to set up appointment with provider to get another refillon medication. Patient states that she does not know when she can come in and then patient hangs up. Patient was last seen by provider on 10/14/2022. Marita Maciel, RN * Telephone Encounter - Mindi Kitchen LPN - 09/27/2023 3:23 PM EDT Refill request came thru from the pharmacy for Lozol. This was denied because pt past due for apt. Last OV 10-14-22. Pt was to schedule a 4 month FU. Left a message for pt to call the office to schedule 4 month follow up and then send refill to provider. Mindi Kitchen LPN documented in this encounterLima [facility] Hospital08-15-2023 Miscellaneous Notes* Telephone Encounter - Jennifer Worley LPN - 01/24/2023 10:44 AM EDT Patient has been identified by name and date of : Yes, Patient phones for refill(s): Requested Prescriptions Pending Prescriptions Disp Refills Cholecalciferol, Vitamin D3, 25 mcg (1,000 unit) cap 90 capsule 3 Sig: Take 1 capsule by mouth once daily. Date of last office visit in primary care: 10/14/2022 Annual: 03/20/2023 Last 2 Encounter Wt Readings: Date: Wt: 10/14/2022 63.5 kg (140 lb) 08/17/2022 61.7 kg (136 lb) Previous labs/tests for medication: Not applicable Please advise. Thank you. Jennifer Worley LPN * Telephone Encounter - Jersey Toribio - 01/24/2023 10:35 AM EDT Patient has been identified by name and date of : Yes Last office visit in this department: 10/14/2022 RX INSTRUCTIONS: Patient aware RX will be sent to pharmacy. No need to notify patient. Patient phones requesting refills as follows: Requested Prescriptions Pending Prescriptions Disp Refills Cholecalciferol, Vitamin D3, 25 mcg (1,000 unit) cap 90 capsule 3 Sig: Take 1 capsule by mouth once daily. Please review and advise. Jersey Toribio documented in this encounterL[facility] Hospital06-23-2023 Miscellaneous Notes* Telephone Encounter - Dmitri Feliz LPN - 12/02/2022 3:05 PM EDT Patient phones requesting refills as follows: Requested Prescriptions Pending Prescriptions Disp Refills metoprolol tartrate, short acting, (LOPRESSOR) 50 mg tablet 180 tablet 3 Sig: Take 1 tablet by mouth twice daily. ISMAEL 10/14/22 NOV 03/20/23 Please review and advise. Dmitri Feliz LPN documented in this encounterLima City Hospital05-13-2023 Miscellaneous Notes* Telephone Encounter - BRANDON Cartwright - 10/22/2022 9:14 AM EDT Patient has been identified by name and date of : Yes Last office visit in this department: 10/14/2022 Next office visit: 03/20/2023 RX INSTRUCTIONS: Patient aware RX will be sent to pharmacy. No need to notify patient. Patient phones requesting refills as follows: Requested Prescriptions Pending Prescriptions Disp Refills glimepiride (AMARYL) 4 mg tablet 90 tablet 3 Sig: Take 1 tablet by mouth daily with breakfast. Please review and advise. BRANDON Cartwright documented in this encounterLima City Hospital05-05-2023 History of Present illness Narrative* Carmen Johnson MD - 10/14/2022 4:36 PM EDT This note was created using NoteWriter. Subjective Angelica Toribio is a 72 year old female. No chief complaint on file. SUBJECTIVE: Angelica Toribio is a 72 year old year old lady here today for 4 month follow up appointment forreview of medical conditions. Noted UTI symptoms. No pain with urination. Cannot see well at night when driving.Went to [place] for evaluation. Told needs to go every 4 months. Has been going to eye doctor and they have been managing issues with [facility]. Getting shots for eyes but recently did not need shots. 11 weeks before next appointment with retinal specialist. Followingwith Dr. Mobley for routine check ups. Got form from [facility] again. Driving better now. Needs to avoid night driving though. No signs of recurrence of SBO. Reviewed had laparoscopy with AKANKSHA. Healed well from incisions. PAST MEDICAL HISTORY Diagnosis Date Anxiety state, unspecified Displacement of lumbar intervertebral disc without myelopathy DM type 2 (diabetes mellitus, type 2) ([facility]) Edema Other malaise and fatigue Unspecified essential hypertension Current Outpatient Medications Medication Sig indapamide (LOZOL) 1.25 mg tablet Take 1 tablet by mouth once daily. blood sugar diagnostic (BLOOD GLUCOSE TEST) test strip Test blood sugar(s) once daily as directed. Dx: E11.22. Insulin: no (Patient not taking: Reported on 08/17/2022) Cholecalciferol, Vitamin D3, 25 mcg (1,000 unit) cap Take 1 capsule by mouth once daily. (Patient not taking: Reported on 08/17/2022) glimepiride (AMARYL) 4 mg tablet Take 1 tablet by mouth daily with breakfast. metoprolol tartrate, short acting, (LOPRESSOR) 50 mg tablet Take 1 tablet by mouth twice daily. loratadine (CLARITIN) 10 mg tablet Take 1 tablet by mouth once daily. As directed for allergies Blood Pressure Monitor 1 Each once daily. betamethasone dipropionate, augmented (DIPROLENE) 0.05 % cream APPLY TO THE HANDS TWICE A DAY FOR 14 DAYS (Patient not taking: Reported on 08/17/2022) Lancets lancets Test blood sugar(s) once daily as directed. Dx: E11.22. Insulin: no (Patient not taking: Reported on 08/17/2022) BIOTIN/KERATIN (BIOTIN PLUS KERATIN ORAL) Take by mouth. (Patient not taking: Reported on 08/17/2022) No current facility-administered medications for this visit. Review of Systems Objective BP 124/68 Pulse 61 Temp 37.3 C (99.2 F) Resp 18 Wt 63.5 kg (140 lb) SpO2 98% BMI 26.02 kg/m Last 5 Encounter Wt Readings: Date: Wt: 10/14/2022 63.5 kg (140 lb) 08/17/2022 61.7 kg (136 lb) 06/14/2022 64.9 kg (143 lb) 05/13/2022 64.2 kg (141 lb 8 oz) 02/15/2022 66.2 kg (146 lb) No waist measurement recorded Estimated body mass index is 26.02 kg/m as calculated from the following: Height as of 02/11/16: 156.2 cm (5' 1.5). Weight as of this encounter: 63.5 kg (140 lb). Last 5 Encounter BP Readings: Date: BP: 10/14/2022 124/68 08/17/2022 128/68 06/14/2022 132/70 05/13/2022 130/80 02/15/2022 138/82 Physical Exam Constitutional: Appearance: Normal appearance. HENT: Head: Normocephalic. Right Ear: There is impacted cerumen (More on right than left). Left Ear: There is impacted cerumen (seems to be almost gone). Eyes: Conjunctiva/sclera: Conjunctivae normal. Cardiovascular: Rate and Rhythm: Normal rate and regular rhythm. Heart sounds: Normal heart sounds. Pulmonary: Effort: Pulmonary effort is normal. Breath sounds: Normal breath sounds. Musculoskeletal: Right lower leg: No edema. Left lower leg: No edema. Skin: General: Skin is warm and dry. Neurological: General: No focal deficit present. Mental Status: She is alert and oriented to person, place, and time. Psychiatric: Mood and Affect: Mood normal. Behavior: Behavior normal. Thought Content: Thought content normal. Judgment: Judgment normal. Last labs: Component Latest Ref Rng & Units 10/08/2021 02/10/2022 06/28/2022 Protein, Total 6.3 - 8.0 g/dL 7.6 7.1 7.2 Albumin 3.9 - 4.9 g/dL 4.3 4.0 4.4 Calcium 8.5 - 10.2 mg/dL 9.5 10.0 9.7 Bilirubin, Total 0.2 - 1.3 mg/dL 0.8 0.5 0.8 Alkaline Phosphatase 34 - 123 U/L 87 80 73 AST 13 - 35 U/L 16 14 23 ALT 7 - 38 U/L 12 11 16 Glucose 74 - 99 mg/dL 113 (H) 80 67 (L) BUN 7 - 21 mg/dL 29 (H) 21 28 (H) Creatinine 0.58 - 0.96 mg/dL 1.18 (H) 1.00 (H) 1.09 (H) Sodium 136 - 144 mmol/L 139 147 (H) 137 Potassium 3.7 - 5.1 mmol/L 3.7 3.9 3.5 (L) Chloride 97 - 105 mmol/L 100 109 (H) 102 CO2 22 - 30 mmol/L 27 23 21 (L) Anion Gap 9 - 18 mmol/L 12 15 14 eGFR >=60 mL/min/1.73m 50 (L) 60 54 (L) WBC 3.70 - 11.00 k/uL 6.35 5.37 6.86 RBC 3.90 - 5.20 m/uL 4.33 4.17 4.15 Hemoglobin 11.5 - 15.5 g/dL 13.1 12.6 12.7 Hematocrit 36.0 - 46.0 % 39.5 37.9 38.5 MCV 80.0 - 100.0 fL 91.2 90.9 92.8 MCH 26.0 - 34.0 pg 30.3 30.2 30.6 MCHC 30.5 - 36.0 g/dL 33.2 33.2 33.0 RDW-CV 11.5 - 15.0 % 13.2 13.2 13.2 Platelet Count 150 - 400 k/uL 207 193 182 MPV 9.0 - 12.7 fL 9.7 10.2 10.1 Absolute nRBC <0.01 k/uL <0.01 <0.01 <0.01 Cholesterol, Total <200 mg/dL 245 (H) 220 (H) 238 (H) Triglyceride <150 mg/dL 176 (H) 116 192 (H) HDL Cholesterol >39 mg/dL 40 41 41 Non HDL Cholesterol <130 mg/dL 205 (H) 179 (H) 197 (H) Fasting Time hrs 12 10 12 VLDL Cholesterol <30 mg/dL 35 (H) 23 38 (H) TC:HDL Ratio <5.10 6.13 (H) 5.37 (H) 5.80 (H) LDL Cholesterol <100 mg/dL 170 (H) 156 (H) 159 (H) LDL:HDL Ratio <2.54 4.25 (H) 3.80 (H) 3.88 (H) Creatinine, Ur Random (UCRR) 20.0 - 300.0 mg/dL 104.3 97.9 Albumin, Urine Random mg/L 94.4 180.1 Albumin/Creat Ratio <30 mg/g 91 (H) 184 (H) Hemoglobin A1C 4.3 - 5.6 % 6.6 (H) 6.1 (H) 6.1 (H) Estimated Average Glucose mg/dL 143 128 128 Vitamin D 25 Hydroxy 31.0 - 80.0 ng/mL 40.0 39.9 41.6 Hemoglobin A1C (%) Date Value 06/28/2022 6.1 02/10/2022 6.1 10/08/2021 6.6 06/14/2021 7.1 02/01/2021 6.8 08/18/2020 7.0 06/09/2020 7.2 03/05/2020 8.1 Assessment and Plan Encounter Diagnosis ICD-10-CM 1. 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 Will get issues regarding vision for BMV addressed by [facility] provider(s) 2. Exudative age-related macular degeneration of right eye, unspecified stage (HCC) H35.3210 3. Acute cystitis with hematuria N30.01 URINE CULTURE 4. Essential hypertension I10 COMP METABOLIC PANEL CBC 5. Cloudy urine R82.90 UA DIP, URINE (POC) URINE CULTURE 6. Bad odor of urine R82.90 UA DIP, URINE (POC) URINE CULTURE 7. Vitamin D deficiency E55.9 VITAMIN D 25 HYDROXY 8. Mixed hyperlipidemia E78.2 LIPID PANEL BASIC Above issues addressed with patient. Patient involved in shared decision making for management of medical issues. History and medications reviewed. Epic updated as needed Refills and/or prescriptions taken care of and meds adjusted as indicated after reviewed history, exam and labs. Health Maintenance reviewed. Updated record and/or ordered tests as recorded. Encouraged on efforts at healthy diet and regular exercise and adequate sleep. Form completed for BMV. Deferred to eye doctor regarding driving privileges and how often needs checked. (Note that contacted by Dr. Rajan's office staff--patient was told that she has not been cleared to drive due to her vision impairment. Asked them to also send BMV form in since I deferred to them regarding driving privileges.) Discussed okay to try Biotin. Treating for UTI. Further evaluation and treatment as indicated. I spent a total of 42 minutes on the date of the service which included preparing to see the patient, [id number] patient care, completing clinical documentation, performing a medically appropriate examination, counseling and educating the patient/family/caregiver, and ordering medications, tests,or procedures. aCrmen Johnson MD documented in this encounterLima City Hospital04-14-2023 Miscellaneous Notes* Telephone Encounter - Tami Faustin LPN - 09/23/2022 7:59 AM EDT ISMAEL 08/17/22 Next 10/14/22 * Telephone Encounter - Evelin Holly Pss - 09/22/2022 4:18 PM EDT Pharmacy verified in [facility] Patient has been identified by name and date of : Yes Patient aware RX will be sent to pharmacy. No need to notify patient. Patient phones for refill(s): Requested Prescriptions Pending Prescriptions Disp Refills indapamide (LOZOL) 1.25 mg tablet 90 tablet 3 Sig: Take 1 tablet by mouth once daily. Date of last office visit : Visit date not found Date of next office visit : Visit date not found Last 2 Encounter Wt Readings: Date: Wt: 08/17/2022 61.7 kg (136 lb) 06/14/2022 64.9 kg (143 lb) Not applicable Please advise. Evelin Holly Pss documented in this encounterLima [facility] Hospital03-08-2023 History of Present illness Narrative* Carmen Johnson MD - 08/17/2022 10:20 AM EST This note was created using Acceptdter. Subjective Angelica Toribio is a 72 year old female. Patient presents with: Hospital F/U: [facility] discharge 08/11/2022 SUBJECTIVE: Angelica Toribio is a 72 year old year old lady here today for hospital follow up appointment for review of medical conditions. Was admitted for small bowel obstruction. Had Diagnostic laparoscopy and Adhesiolysis. Doing better. Eating more. Pleased with weight loss. PAST MEDICAL HISTORY Diagnosis Date Anxiety state, unspecified Displacement of lumbar intervertebral disc without myelopathy DM type 2 (diabetes mellitus, type 2) ([facility]) Edema Other malaise and fatigue Unspecified essential hypertension Current Outpatient Medications Medication Sig blood sugar diagnostic (BLOOD GLUCOSE TEST) test strip Test blood sugar(s) once daily as directed. Dx: E11.22. Insulin: no Cholecalciferol, Vitamin D3, 25 mcg (1,000 unit) cap Take 1 capsule by mouth once daily. glimepiride (AMARYL) 4 mg tablet Take 1 tablet by mouth daily with breakfast. indapamide (LOZOL) 1.25 mg tablet Take 1 tablet by mouth once daily. metoprolol tartrate, short acting, (LOPRESSOR) 50 mg tablet Take 1 tablet by mouth twice daily. loratadine (CLARITIN) 10 mg tablet Take 1 tablet by mouth once daily. As directed for allergies Blood Pressure Monitor 1 Each once daily. betamethasone dipropionate, augmented (DIPROLENE) 0.05 % cream APPLY TO THE HANDS TWICE A DAY FOR 14 DAYS Lancets lancets Test blood sugar(s) once daily as directed. Dx: E11.22. Insulin: no BIOTIN/KERATIN (BIOTIN PLUS KERATIN ORAL) Take by mouth. No current facility-administered medications for this visit. Review of Systems Objective BP 128/68 Pulse (!) 55 Temp 36.6 C (97.8 F) Resp 18 Wt 61.7 kg (136 lb) SpO2 100% BMI 25.28 kg/m Last 5 Encounter Wt Readings: Date: Wt: 08/17/2022 61.7 kg (136 lb) 06/14/2022 64.9 kg (143 lb) 05/13/2022 64.2 kg (141 lb 8 oz) 02/15/2022 66.2 kg (146 lb) 10/12/2021 69.4 kg (153 lb) No waist measurement recorded Estimated body mass index is 25.28 kg/m as calculated from the following: Height as of 02/11/16: 156.2 cm (5' 1.5). Weight as of this encounter: 61.7 kg (136 lb). Last 5 Encounter BP Readings: Date: BP: 08/17/2022 128/68 06/14/2022 132/70 05/13/2022 130/80 02/15/2022 138/82 10/12/2021 124/82 Physical Exam Constitutional: Appearance: Normal appearance. HENT: Head: Normocephalic. Right Ear: There is impacted cerumen. Left Ear: There is no impacted cerumen. Eyes: Conjunctiva/sclera: Conjunctivae normal. Cardiovascular: Rate and Rhythm: Normal rate and regular rhythm. Heart sounds: Normal heart sounds. Pulmonary: Effort: Pulmonary effort is normal. Breath sounds: Normal breath sounds. Abdominal: General: Abdomen is flat. Bowel sounds are normal. Palpations: Abdomen is soft. Comments: Healing incisions from laparoscopic surgery (belly button and RLQ and LLQ Skin: General: Skin is warm and dry. Neurological: General: No focal deficit present. Mental Status: She is alert and oriented to person, place, and time. Psychiatric: Mood and Affect: Mood normal. Behavior: Behavior normal. Thought Content: Thought content normal. Judgment: Judgment normal. Operative Report [facility] Medical Records Department [address] [place] [address] Operative Report 08/08/22 1634 MR#: [id number] Acct: [id number] Name: ANGELICA TORIBIO Rep #: [id number] : 1950 72 From: Mitch Sosa MD PCP: Dr. Carmen Johnson MD Status:ADM IN [id number] Date of Procedure: 08/08/22 Pre-Operative Diagnosis: Partial small bowel obstruction Post-Operative Diagnosis: Partial small bowel obstruction secondary to internal hernia Surgery/Procedure Performed:: 1. Diagnostic laparoscopy 2. Adhesiolysis (30 minutes) Surgeon: Mitch Sosa linter drier operator: Lety Hobbs Type of Anesthesia: General/Supplemental Anesthesiologist: Kancherla,Freddy Special Medications: N/A Specimen's removed: N/A Drains: N/A Estimated Blood Loss (mL): 10 Description of Procedure: After appropriate identification in the preoperative holding area, the patient was brought to the operating room and placed supine on the operating room table. Antibiotics had been preoperatively administered. Patient was then induced with general endotracheal anesthetic and her nasogastric tube was connected to suction. A Tucker catheter was placed for temporary bladder decompression using sterile technique. The abdomen was prepped and draped in usual sterile fashion. Formal timeout was conducted to confirm both the patient and the procedure. A supraumbilical incision was made and carried down to the level of the fascia which was sharply opened. After opening the peritoneum in like fashion a finger sweep was made to confirm position, and a balloon trocar was placed and pneumoperitoneum was established to 15 mmHg. Patient was positioned in Trendelenburg with the left side down. 2 additional 5 mm trocars were placed in the left lower quadrant and suprapubic positions. The peritoneum was inspected and there were no signs of inadvertent injury from this Figueroa entry. The right lower quadrant was inspected and we could immediately see dilated/injected proximal small bowel loops. I then identified the cecum along the right lateral abdominal wall and from there identified the terminal ileum. Working hand overhand from the decompressed ileum to the jejunum, I identified the transition point in the bowel with an apparent internal hernia effect; the jejunal loops had coursed into the pelvis over a sigmoid colon that was abnormally adherent to the right pelvic sidewall and given the small aperture through which the bowel had proceeded it had created a void through which the small bowel could not extricate itself. With great caution this herniated bowel was brought back into the abdominal cavity using gentle traction from the laparoscopic graspers. The bowel appeared viable with active peristalsis, but there was a significant amount of red serous free fluid within the pelvis. To try to mitigate the risk for any future 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s, I used the laparoscopic LigaSure device to divide the adhesions between the anterior sigmoid colon and the pelvic sidewall. These initial adhesions were more specifically located between the right adnexa and the colon. The free fluid was suctioned free of the pelvis using the laparoscopic suction drag seiner and I once again inspected the previously herniated bowel/proximal small bowel. Identified active peristalsis within the entire segment and there appeared to be better perfusion even in the short time since its extrication. Encouraged by this observation, concluded the procedure. Pneumoperitoneum was then evacuated and the supraumbilical port site fascia was closed with #1 Vicryl in a [id number] fashion. The port sites were infiltrated with 30 mL local anesthetic (0.25% Marcaine with epinephrine). The skin of each port site was closed with 4- 0 Monocryl in a subcuticular fashion. Steri-Strips and OpSite dressings were applied. The Tucker catheter was removed. Patient tolerated procedure well without any apparent 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s. They were awoken from general anesthetic without issue and transferred to post anesthesia care unit for ongoing recovery. Complications None Admit VTE Documentation VTE Mechan Device Prophylaxis: SCD's 08/08/22 1728 Cosigner Signature (if applicable): CC: Dr. Carmen Johnson MD; Dr. Mithc Sosa MD Signed Assessment and Plan Encounter Diagnosis ICD-10-CM 1. Intestinal adhesions with complete obstruction (HCC) K56.52 2. S/P laparoscopy Z98.890 and lysis adhesions 3. Impacted cerumen of right ear H61.21 Will try Debrox at home and irrigate in shower Above issues addressed with patient. Patient involved in shared decision making for management of medical issues. Doing well post op. History and medications reviewed. Epic updated as needed Refills and/or prescriptions taken care of and meds adjusted as indicated after reviewed history, exam and labs. Health Maintenance reviewed. Updated record and/or ordered tests as recorded. Encouraged on efforts at healthy diet and regular exercise and adequate sleep. Noted that was told needs to get eye test through [facility] where they have the specialized equipment. I spent a total of 25 minutes on the date of the service which included [id number] patient care, completing clinical documentation, obtaining and/or reviewing separately obtained history, performing a medically appropriate examination, and counseling and educating the patient/family/caregiver. Carmen Johnson MD documented in this encounterLima City Hospital03-02-2023 Discharge summary Author Heidi Lance [facility] August 11, 2022 12:54pm Note Date/Time August 11, 2022 12:0 1pm [facility] Medical Records Department [address] [place] [address] Discharge Summary 08/11/22 1158 MR#: [id number] Acct: [id number] Name: ANGELICA TORIBIO Rep #:[id number] : 1950 72 From: Heidi DIAS PA-C PCP: Dr. Carmen Johnson MD Status:AD M IN Location: [place] [id number] Providers Date of Admission: 08/06/22 Date of Discharge: 08/11/22 Primary Care Physician: Dr. Carmen Johnson MD Consultations 08/06/22 12:40 Consult: Hospitalist Routine Consulting Provider: Gage Shah Reason for Consult: MEDICAL EMERGENT Consult: No MD Notified: Yes Date Notified: 08/06/22 Time Notified: 12:40 Method of Notification: Verbal Method of Consult:: In-Person Reason For Visit: SBO Diagnosis Discharge Diagnosis (1) Complete small bowel obstruction: Status: Acute Code(s): K56.601 - Complete intestinal obstruction, unspecified as to cause Plan: Labs reviewed. Phos and potassium replaced. Increase diet Ready for discharge today Medications at Discharge Home Medications cholecalciferol (vitamin D3) 1,250 mcg (50,000 unit) capsule 1 tab PO QWEEK Check with primary doctor 03/03/19 glimepiride 4 mg tablet 1 tab PO DAILY Check with primary doctor 03/03/19 indapamide 1.25 mg tablet 1.25 mg PO DAILY Check with primary doctor 03/03/19 metoprolol tartrate 50 mg tablet 50 mg PO BID Check with primary doctor 03/03/19 naproxen 500 mg tablet 500 mg PO BID PRN Pain 03/03/19 ondansetron 4 mg disintegrating tablet 4 mg PO Q8H PRN PRN Nausea #6 tabs 03/03/19 tramadol 50 mg tablet 50 mg PO DAILY 03/03/19 Carbamide Peroxide [Ear Drops] 15 ml OT BID #150 mL 03/06/19 amlodipine 10 mg tablet 10 mg PO DAILY #60 tabs 03/06/19 meclizine 25 mg tablet 25 mg PO Q6H PRN Dizziness 08/06/22 Hospital Course Operations - (Diagnostic laparoscopy. Adhesiolysis. ) Summary of Care Provided Minutes Spent on Discharge: 25 Hospital Course: Patient is a 72 y/o F who presented with a sudden 3 hour onset of abdominal pain. CT scan of the ab/pel was obtained and demonstrated early high-grade smallbowel obstruction. NG tube was placed. Patient had a small bowel series which did not demonstrate any evidence of obstruction more consistent with an ileus type pattern. Patient was not able to pass any flatus or have a bowel movement and continued to present consistent with a small bowel obstruction. Patient's symptoms did not improve. Dr. Sosa performed a diagnostic laparoscopy and lysis of adhesions on 08/08/22. Findings included an internal hernia at the jejunum. Bowel was brought back into the abdominal cavity without any 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s. No resection of bowel was completed. Patient tolerated the procedure well. Patient was able to have the NG tube removed on 08/09/22 in the evening. Patient was started on sips of clears until bowel function had resumed. Patient passed flatus and have a bowel movement on 08/10/22. Patient's diet was increased to clear liquids. Hospitalist assisted with patient's co-morbidities throughout herhospitalization. Patient hospitalization was uncomplicated. Patient did have appropriate replacement of her hypokalemia and hypophosphatemia. Upon discharge,patient tolerated a regular diet. She had multiple bouts of flatus and bowel movements. She denied having any abdominal pain, nausea, vomiting. Patient voiced readiness for discharge. Physical Exam GI normal to inspection, nondistended, normoactive bowel sounds GI Narrative: Incisions c/d/i. No erythema or infection noted. Weight / BMI Weight Weight: 144 lb 2 oz Body Mass Index (BMI) 28.1 ABG / Lab / Microbiology Data Result Diagrams: 08/11/22 06:05 08/11/22 06:05 Laboratory: Laboratory Results - last 24 hr 08/10/22 12:00: POC Glucose 80 08/10/22 16:00: POC Glucose 77 08/10/22 21:09: POC Glucose 129 H 08/11/22 06:05: WBC 5.6, RBC 3.50 L, Hgb 10.7 L, Hct 32.6 L, MCV 93.1, MCH 30.6,MCHC 32.8, RDW Std Deviation 43.7, RDW Coeff of Rojelio 12.9, Plt Count 171, MPV 10.2, Immature Gran % (Auto) 0.200, Neut % (Auto) 71.5 H, Lymph % (Auto) 16.7 L,Gregg % (Auto) 8.8, Eos % (Auto) 2.3, Baso % (Auto) 0.5, Absolute Neuts (auto) 4.0, Absolute Lymphs (auto) 0.93, Nucleated RBC % 0 08/11/22 06:05: Sodium 141, Potassium 3.4 L, Chloride 109 H, Carbon Dioxide 22.0, Anion Gap 10, BUN 18, Creatinine 0.87, Estim Creat Clear Calc 42.60, Est GFR (MDRD) Af Amer 82, Est GFR (MDRD) Non-Af 68, BUN/Creatinine Ratio 20.7 H, Glucose 105, Calcium 8.5, Phosphorus 2.2 L, Magnesium 1.9 08/11/22 06:34: POC Glucose 109 H Radiography Diagnostic Testing: Radiology Impression KUB X-Ray 08/10/22 07:15 IMPRESSION: Residual oral contrast seen throughout the colon. Electronically Signed: Tanner Howell MD at 13:53 EST Reading Location ID and State: [address] [place] [address] , Service support , D/C Instructions Discharge Diet: Renal Diet Call your doctor if your incision/area has: Continuous Slow Oozing, Sudden Increased Bleeding, Increased Pain/ Swelling, Increased Redness, Foul Smelling Discharge and Swelling at the incision site Suture Line Care: Avoid Pulling/Pushing and Avoid Pinching/Bending Cleanse incision/area with: Soap & Water Please Follow Up With: Mitch Sosa MD When: 1 week Meaningful Use Info Meaningful Use Diagnoses (Choose all that apply): None applicable Discharge Plan Admission Admit Date/Time: 08/06/22 07:31 Primary Reason for Your Visit: Complete small bowel obstruction from an internalhernia Attending Provider: Mitch Sosa Primary Care Provider: Carmen Johnson Consulting Providers: Gage Shah Discharge Orders/Prescriptions Prescriptions: Continued tramadol 50 MG tablet 50 mg PO DAILY glimepiride 4 MG tablet 1 tab PO DAILY metoprolol tartrate 50 MG tablet 50 mg PO BID indapamide 1.25 MG tablet 1.25 mg PO DAILY naproxen 500 MG tablet 500 mg PO BID PRN (Reason: Pain) cholecalciferol (vitamin D3) 50,000 UNIT capsule 1 tab PO QWEEK ondansetron 4 MG tablet 4 mg PO Q8H PRN PRN (Reason: Nausea) Qty: 6 0RF amlodipine 10 MG tablet 10 mg PO DAILY Qty: 60 0RF Carbamide Peroxide [Ear Drops] 15 ML drops 15 ml OT BID Qty: 150 0RF meclizine 25 MG tablet 25 mg PO Q6H PRN (Reason: Dizziness) Referrals / Follow Up: Carmen Johnson MD [Primary Care Provider] - Mitch Sosa MD [Med Staff - Active Staff] - (Call our office to schedule an appointment for 1 week follow-up) Disposition Disposition (needs filled in before D/C Order can be placed): Home, Self Care Charges/Coding Visit Charges Inpatient E&M: 04740 Disch Hosp (no charge) 08/11/22 1254 <Electronically signed by Heidi DIAS PA-C> Cosigner Signature (if applicable): CC: ANNE-MARIE Lance; Dr. Carmen Johnson MD~ Signed [facility] Work Phone: 1([phone]) 537-801103-02-2023 Discharge summary Author Heidi Lance [facility] August 11, 2022 11:57am Note Date/Time August 11, 2022 11:5 5am [facility] Medical Records Department [address] [place] [id number] Instructions for Home/Discharge Instructions 08/11/22 1150 MR#: [id number] Acct: [id number] Name: ANGELICA TORIBIO Rep #:[id number] : 1950 72 From: Heidi DIAS PA-C PCP: Dr. Carmen Johnson MD Status:AD M IN Discharge Instructions Diet Discharge Diet: Renal Diet Activity Discharge Activity: May Not Drive (3 days) Dressing / Incision Call your doctor if your incision/area has: Continuous Slow Oozing, Sudden Increased Bleeding, Increased Pain/ Swelling, Increased Redness, Foul Smelling Discharge and Swelling at the incision site Suture Line Care: Avoid Pulling/Pushing and Avoid Pinching/Bending Cleanse incision/area with: Soap & Water Follow Up Care Please Follow Up With: Mitch Sosa MD When: 1 week Test Results: Test results from this visit will be discussed in further detail at your follow- up appointment, if applicable. Discharge Plan Admission Admit Date/Time: 08/06/22 07:31 Primary Reason for Your Visit: Complete small bowel obstruction from an internalhernia Attending Provider: Mitch Sosa Primary Care Provider: Carmen Johnson Consulting Providers: Gage Shah Discharge Orders/Prescriptions Prescriptions: Continued tramadol 50 MG tablet 50 mg PO DAILY glimepiride 4 MG tablet 1 tab PO DAILY metoprolol tartrate 50 MG tablet 50 mg PO BID indapamide 1.25 MG tablet 1.25 mg PO DAILY naproxen 500 MG tablet 500 mg PO BID PRN (Reason: Pain) cholecalciferol (vitamin D3) 50,000 UNIT capsule 1 tab PO QWEEK ondansetron 4 MG tablet 4 mg PO Q8H PRN PRN (Reason: Nausea) Qty: 6 0RF amlodipine 10 MG tablet 10 mg PO DAILY Qty: 60 0RF Carbamide Peroxide [Ear Drops] 15 ML drops 15 ml OT BID Qty: 150 0RF meclizine 25 MG tablet 25 mg PO Q6H PRN (Reason: Dizziness) Referrals / Follow Up: Carmen Johnson MD [Primary Care Provider] - Mitch Sosa MD [Med Staff - Active Staff] - (Call our office to schedule an appointment for 1 week follow-up) Disposition Disposition (needs filled in before D/C Order can be placed): Home, Self Care 08/11/22 1157<Electronically signed by Heidi DIAS PA-C>Heidi DIAS PA-C CC: Dr. Carmen Johnson MD; Dr. Gage Shah MD ~ Signed [facility] Work Phone: 1([phone]) 666-854903-02-2023 Progress note Author [facility] August 11, 2022 11:49am Note Date/Time August 11, 2022 10:5 6am [facility] Medical Records Department [address] [place] [address] Progress Note - Surgery 08/11/22 1053 MR#: [id number] Acct: [id number] Name: ANGELICA TORIBIO Rep #:[id number] : 1950 72 From: Heidi DIAS PA-C PCP: Dr. Carmen Johnson MD Status:AD M IN Location: [place] [address] Subjective Subjective Patient is evaluating sitting comfortably at the side of the bed. She denies abdominal pain. She notes multiple bowel movements and flatus. Patient is tolerating clear liquids well. She notes her sore throat has greatly improved. Objective Data Objective Data Vital Signs: Vital Signs Temp Pulse Resp BP Pulse Ox O2 Del Method O2 Flow Rate 98.1 F 76 16 156/81 H 96 Room Air 2 08/11/22 08:46 08/11/22 09:25 08/11/22 08:46 08/11/22 09:25 08/11/22 08:46 08/11/22 09:18 08/09/22 07:51 Oxygen Flow Rate (L/min) 2 Oxygen Delivery Method Room Air Weight: 144 lb 2 oz Body Mass Index (BMI) 28.1 Intake & Output: Intake and Output for Last 24 Hours 08/09/22 08/10/22 08/11/22 23:59 23:59 23:59 Intake Total 1470 / 1470 2019 300 / 300 Output Total 540 / 540 Balance 930 / 930 2019 300 / 300 Lab / Micro Data Result Diagrams: 08/11/22 06:05 08/11/22 06:05 Labs: Laboratory Results - last 24 hr 08/10/22 12:00: POC Glucose 80 08/10/22 16:00: POC Glucose 77 08/10/22 21:09: POC Glucose 129 H 08/11/22 06:05: WBC 5.6, RBC 3.50 L, Hgb 10.7 L, Hct 32.6 L, MCV 93.1, MCH 30.6,MCHC 32.8, RDW Std Deviation 43.7, RDW Coeff of Rojelio 12.9, Plt Count 171, MPV 10.2, Immature Gran % (Auto) 0.200, Neut % (Auto) 71.5 H, Lymph % (Auto) 16.7 L,Gregg % (Auto) 8.8, Eos % (Auto) 2.3, Baso % (Auto) 0.5, Absolute Neuts (auto) 4.0, Absolute Lymphs (auto) 0.93, Nucleated RBC % 0 08/11/22 06:05: Sodium 141, Potassium 3.4 L, Chloride 109 H, Carbon Dioxide 22.0, Anion Gap 10, BUN 18, Creatinine 0.87, Estim Creat Clear Calc 42.60, Est GFR (MDRD) Af Amer 82, Est GFR (MDRD) Non-Af 68, BUN/Creatinine Ratio 20.7 H, Glucose 105, Calcium 8.5, Phosphorus 2.2 L, Magnesium 1.9 08/11/22 06:34: POC Glucose 109 H Radiography Diagnostic Testing: Radiology Impression KUB X-Ray 08/10/22 07:15 IMPRESSION: Residual oral contrast seen throughout the colon. Electronically Signed: Tanner Howell MD at 13:53 EST , Physical Exam Const alert, oriented x3 and no apparent distress GI soft to palpation and non-tender GI Narrative: Incisions c/d/i. No erythema or infection noted. Assessment & Plan Assessment/Plan (1) Complete small bowel obstruction: PLAN: Labs reviewed. Phos and potassium replaced. Increase diet Ready for discharge today Charges/Coding Visit Charges Inpatient E&M: 66825 Subs Hosp L1 (no charge) 08/11/22 1149 <Electronically signed by Heidi DIAS PA-C> Cosigner Signature (if applicable): CC: ~ Signed [facility] Work Phone: 1(443) 234-120303-02-[address] Shah [facility] August 11, 2022 9:17am Note Date/Time August 11, 2022 9:17 am [facility] Medical Records Department [address] [place] [address] Progress Note - Hospitalist 08/11/22 0915 MR#: [id number] Acct: [id number] Name: ANGELICA TORIBIO Rep #:[id number] : 1950 72 From: Gage chen MD PCP: Dr. Caremn Johnson MD Status:AD M IN Location: [facility] [id number] Subjective Subjective Doing well, had bowel movements yesterday and today and she is also passing gas Objective Data Objective Data Vital Signs: Vital Signs Temp Pulse Resp BP Pulse Ox O2 Del Method O2 Flow Rate 98.1 F 76 16 156/81 H 96 Room Air 2 08/11/22 08:46 08/11/22 08:46 08/11/22 08:46 08/11/22 08:46 08/11/22 08:46 08/11/22 08:46 08/09/22 07:51 Oxygen Flow Rate (L/min) 2 Oxygen Delivery Method Room Air Weight: 144 lb 2 oz Body Mass Index (BMI) 28.1 Intake & Output: Intake and Output for Last 24 Hours 08/10/22 08/11/22 08/12/22 03:59 03:59 03:59 Intake Total 1360 / 1360 2019 300 / 300 Output Total 540 / 540 Balance 820 / 820 2019 300 / 300 Lab / Micro Data Result Diagrams: 08/11/22 06:05 08/11/22 06:05 Labs: Laboratory Results - last 24 hr 08/10/22 12:00: POC Glucose 80 08/10/22 16:00: POC Glucose 77 08/10/22 21:09: POC Glucose 129 H 08/11/22 06:05: WBC 5.6, RBC 3.50 L, Hgb 10.7 L, Hct 32.6 L, MCV 93.1, MCH 30.6,MCHC 32.8, RDW Std Deviation 43.7, RDW Coeff of Rojelio 12.9, Plt Count 171, MPV 10.2, Immature Gran % (Auto) 0.200, Neut % (Auto) 71.5 H, Lymph % (Auto) 16.7 L,Gregg % (Auto) 8.8, Eos % (Auto) 2.3, Baso % (Auto) 0.5, Absolute Neuts (auto) 4.0, Absolute Lymphs (auto) 0.93, Nucleated RBC % 0 08/11/22 06:05: Sodium 141, Potassium 3.4 L, Chloride 109 H, Carbon Dioxide 22.0, Anion Gap 10, BUN 18, Creatinine 0.87, Estim Creat Clear Calc 42.60, Est GFR(MDRD) Af Amer 82, Est GFR (MDRD) Non-Af 68, BUN/Creatinine Ratio 20.7 H, Glucose 105, Calcium 8.5, Phosphorus 2.2 L, Magnesium 1.9 08/11/22 06:34: POC Glucose 109 H Radiography Diagnostic Testing: Radiology Impression KUB X-Ray 08/10/22 07:15 IMPRESSION: Residual oral contrast seen throughout the colon. Electronically Signed: Tanner Howell MD at 13:53 EST , Physical Exam Narrative General: Alert, Oriented x3, Cooperative, No apparent distress HEENT: Atraumatic, PERRLA, EOMI, Normocephalic Oral: Moist Mucosa Neck: Supple, No JVD Lungs: Clear to auscultation, Normal air movement, No rhonchi, No wheeze, No rales Cardiovascular: Regular rate, Regular Rhythm, Normal S1, Normal S2, No murmurs Abdomen: Soft, Non Tender, Non-Distended, No Hepato-splenomegaly, incisions are clean, dry, intact Extremities: No edema, Capillary Refill Less than 3 Seconds Skin: No rashes, No breakdown Musculoskeletal: No Tenderness to Palpation of Joints or Extremities Neurological: Cranial nerves II-XII grossly intact, Motor Exam 5/5 strength throughout, Sensory exam intact to light touch and pain Psych/Mental Status: Flat affect, Appropriate Assessment & Plan Assessment/Plan (1) Complete small bowel obstruction: (2) Hypokalemia: PLAN: Plan 1. Complete small bowel obstruction status post repair on 08/08/2022 ? Has had bowel movements ? Can likely advance her diet ? Encourage ambulation ? Pain is much improved ?She is stable for discharge from medical perspective 2. HTN/HLD/carotid disease ? Blood pressures are stable ? Can resume her home blood pressure medications today 3. DM2/CKD 3a ? Continue with sips and chips ? Continue sliding scale insulin and Accu-Cheks ? We will make adjustments as necessary ? Renal function appears to be at baseline 4. GERD ? Stable ? Continue with p.o. We will sign off DVT: SCDs Charges/Coding Visit Charges Inpatient E&M: 84023 Subs Hosp L2 08/11/22 0917 <Electronically signed by Gage Shah MD> Cosigner Signature (if applicable): CC: ~ Signed [facility] Work Phone: [phone]) 902-512403-01-[address] Shah [facility] August 10, 2022 2:02pm Note Date/Time August 10, 2022 2:02 pm [facility] Medical Records Department [address] [facility] [place] [address] Progress Note - Hospitalist 08/10/22 1356 MR#: [id number] Acct: [id number] Name: ANGELICA TORIBIO Rep #:[id number] : 1950 72 From: Gage chen MD PCP: Dr. Carmen Johnson MD Status:AD M IN [id number] Subjective Subjective Tolerating sips and chips but has not had any bowel movements or flatus. Pain is controlled Objective Data Objective Data Vital Signs: Vital Signs Temp Pulse Resp BP Pulse Ox O2 Del Method O2 Flow Rate 98.2 F 83 16 160/76 H 95 Room Air 2 08/10/22 12:06 08/10/22 12:12 08/10/22 12:06 08/10/22 12:12 08/10/22 12:24 08/10/22 12:06 08/09/22 07:51 Oxygen Flow Rate (L/min) 2 Oxygen Delivery Method Room Air Weight: 144 lb 2 oz Body Mass Index (BMI) 28.1 Intake & Output: Intake and Output for Last 24 Hours 08/09/22 08/10/22 08/11/22 03:59 03:59 03:59 Intake Total 1455 / 1455 1360 / 1360 110 / 110 Output Total 350 / 350 540 / 540 Balance 1105 / 1105 820 / 820 110 / 110 Lab / Micro Data Result Diagrams: 08/10/22 06:15 08/10/22 06:15 Labs: Laboratory Results - last 24 hr 08/09/22 16:13: POC Glucose 97 08/10/22 00:05: POC Glucose 108 H 08/10/22 05:49: POC Glucose 81 08/10/22 06:15: WBC 6.0, RBC 3.30 L, Hgb 10.1 L, Hct 31.4 L, MCV 95.2, MCH 30.6,MCHC 32.2, RDW Std Deviation 44.0 H, RDW Coeff of Rojelio 12.9, Plt Count 160, MPV 10.6, Immature Gran % (Auto) 0.300, Neut % (Auto) 66.9, Lymph % (Auto) 21.3, Gregg % (Auto) 9.2, Eos % (Auto) 2.0, Baso % (Auto) 0.3, Absolute Neuts (auto) 4.0, Absolute Lymphs (auto) 1.27, Nucleated RBC % 0 08/10/22 06:15: Sodium 143, Potassium 3.1 L, Chloride 111 H, Carbon Dioxide 24.0, Anion Gap 8, BUN 32 H, Creatinine 1.11 H, Estim Creat Clear Calc 33.39, Est GFR (MDRD) Af Amer 62, Est GFR (MDRD) Non-Af 51 L, BUN/Creatinine Ratio 28.8H, Glucose 91, Calcium 8.6, Phosphorus 2.0 L, Magnesium 2.3 08/10/22 12:00: POC Glucose 80 Radiography Diagnostic Testing: Radiology Impression KUB X-Ray 08/10/22 07:15 IMPRESSION: Residual oral contrast seen throughout the colon. Electronically Signed: Tanner Howell MD at 13:53 EST , Physical Exam Narrative General: Alert, Oriented x3, Cooperative, No apparent distress HEENT: Atraumatic, PERRLA, EOMI, Normocephalic Oral: Moist Mucosa Neck: Supple, No JVD Lungs: Clear to auscultation, Normal air movement, No rhonchi, No wheeze, No rales Cardiovascular: Regular rate, Regular Rhythm, Normal S1, Normal S2, No murmurs Abdomen: Soft, Non Tender, Non-Distended, No Hepato-splenomegaly, incisions are clean, dry, intact Extremities: No edema, Capillary Refill Less than 3 Seconds Skin: No rashes, No breakdown Musculoskeletal: No Tenderness to Palpation of Joints or Extremities Neurological: Cranial nerves II-XII grossly intact, Motor Exam 5/5 strength throughout, Sensory exam intact to light touch and pain Psych/Mental Status: Flat affect, Appropriate Assessment & Plan Assessment/Plan (1) Complete small bowel obstruction: (2) Hypokalemia: PLAN: Plan 1. Complete small bowel obstruction status post repair on 08/08/2022 ? Slow recovery possible ileus ? Continue with sips and chips ? Encourage ambulation ? Pain is much improved 2. HTN/HLD/carotid disease ? We will hold her oral blood pressure medications until she is more stable and taking oral medications ? As needed pressure medications, her blood pressures are fairly well controlled 3. DM2/CKD 3a ? Continue with sips and chips ? Continue sliding scale insulin and Accu-Cheks ? We will make adjustments as necessary ? Renal function appears to be at baseline 4. GERD ? Stable ? Continue with p.o. DVT: SCDs Charges/Coding Visit Charges Inpatient E&M: 04355 Subs Hosp L2 08/10/22 1402 <Electronically signed by Gage Shah MD> Cosigner Signature (if applicable): CC: ~ Signed [facility] Work Phone: 1(242) 865-297603-01-[address] Sosa [facility] August 10, 2022 10:21am Note Date/Time August 10, 2022 7:43 am [facility] Medical Records Department [address] [place] [address] Progress Note - Surgery 08/10/22 0741 MR#: [id number] Acct: [id number] Name: ANGELICA TORIBIO Rep #:[id number] : 1950 72 From: Mitch Wynn PCP: Dr. Carmen Johnson MD Status:AD M IN [place] [facility] [id number] Subjective Subjective Patient seen and examined during AM rounds. She is found sitting upright in bed. She reports that she is overall comfortable and denies any nausea, vomiting, or belching following the NG tube withdrawal last evening. She still denies any passage of flatus or bowel movements. She expresses hunger. Objective Data Objective Data Vital Signs: Vital Signs Temp Pulse Resp BP Pulse Ox O2 Del Method O2 Flow Rate 98.5 F 77 18 139/54 H 93 Room Air 2 08/10/22 05:46 08/10/22 05:59 08/10/22 05:46 08/10/22 05:59 08/10/22 05:46 08/10/22 05:46 08/09/22 07:51 Oxygen Flow Rate (L/min) 2 Oxygen Delivery Method Room Air Weight: 144 lb 2 oz Body Mass Index (BMI) 28.1 Intake & Output: Intake and Output for Last 24 Hours 08/08/22 08/09/22 08/10/22 23:59 23:59 23:59 Intake Total 2385 / 2385 1470 / 1470 Output Total 450 / 450 540 / 540 Balance 1935 / 1935 930 / 930 Lab / Micro Data Result Diagrams: 08/10/22 06:15 08/10/22 06:15 Labs: Laboratory Results - last 24 hr 08/09/22 06:20: Differential Comment SCANNED 08/09/22 11:35: POC Glucose 113 H 08/09/22 16:13: POC Glucose 97 08/10/22 00:05: POC Glucose 108 H 08/10/22 05:49: POC Glucose 81 08/10/22 06:15: WBC 6.0, RBC 3.30 L, Hgb 10.1 L, Hct 31.4 L, MCV 95.2, MCH 30.6,MCHC 32.2, RDW Std Deviation 44.0 H, RDW Coeff of Rojelio 12.9, Plt Count 160, MPV 10.6, Immature Gran % (Auto) 0.300, Neut % (Auto) 66.9, Lymph % (Auto) 21.3, Gregg % (Auto) 9.2, Eos % (Auto) 2.0, Baso % (Auto) 0.3, Absolute Neuts (auto) 4.0, Absolute Lymphs (auto) 1.27, Nucleated RBC % 0 08/10/22 06:15: Sodium 143, Potassium 3.1 L, Chloride 111 H, Carbon Dioxide 24.0, Anion Gap 8, BUN 32 H, Creatinine 1.11 H, Estim Creat Clear Calc 33.39, Est GFR (MDRD) Af Amer 62, Est GFR (MDRD) Non-Af 51 L, BUN/Creatinine Ratio 28.8H, Glucose 91, Calcium 8.6, Phosphorus 2.0 L, Magnesium 2.3 Physical Exam Const oriented x3 and no apparent distress Resp normal respiratory effort GI GI Narrative: Slightly more distended than yesterday, operative port sites appear stable with no erythema or drainage. Abdomen is soft and nontender to palpation x4 quadrants Assessment & Plan Assessment/Plan (1) Complete small bowel obstruction: PLAN: Is a 72-year-old female who presents acutely for an associated nausea and abdominal pain. ER work-up pointed to a early high-grade small bowel obstruction with transition point in the pelvis on the right. Patient was takenfor diagnostic laparoscopy with findings confirming partial high-grade small bowel obstruction with internal hernia effect on 08/08/2022. Yesterday her NG tube output dropped off precipitously and she passed a clamp trial so the tube was removed, but has yet to report return of bowel function. Given her expressions of hunger and her success with removing the NG tube, I am inclined to begin sips of clears, but would like to check a KUB first. Patient encouraged to mobilize as tolerated to hasten return of bowel function. Plan: Neuro: As needed Dilaudid (will use sparingly given patient's current affect) Pulm/CV: Maintain head of bed elevation, aspiration precautions, scheduled metoprolol, hydralazine as needed, antihypertensives per hospitalist FEN/GI: Active monitoring of electrolytes while patient n.p.o.?replace potassiumand phosphate today, advance to sips of clears, KUB showing resolution of obstructive pattern and both air and contrast in the colon : No current issues Heme/ID: Trend CBC Endo: Diabetes management per hospitalist service Proph: SCDs, encourage ambulation Dispo: Continue inpatient stay Charges/Coding Visit Charges Inpatient E&M: 11142 Subs Hosp L2 08/10/22 1021 <Electronically signed by Mitch Sosa MD> Cosigner Signature (if applicable): CC: ~ Signed [facility] Work Phone: 1(578) 619-559902-28-2023 Progress note Author Heidi Lance [facility] August 09, 2022 9:48am Note Date/Time August 09, 2022 9:48am [facility] Medical Records Department [address] [place] [address] Progress Note - Surgery 08/09/22 0939 MR#: [id number] Acct: [id number] Name: ANGELICA TORIBIO Rep #:[id number] : 1950 72 From: Heidi DIAS PA-C PCP: Dr. Carmen Johnson MD Status:AD M IN Location: [place] [address] Subjective Subjective Patient is a 72 y/o F I am following s/p diagnostic laparoscopy and lysis of adhesions with Dr. Sosa on 08/08/22. Patient tolerated the procedure well. Patient notes more throat discomfort this morning than abdominal pain. Patient denies flatus and bowel movements. Patient denies nausea and vomiting. Patient continues to have an NG tube. Objective Data Objective Data Vital Signs: Vital Signs Temp Pulse Resp BP Pulse Ox O2 Del Method O2 Flow Rate 98.4 F 87 16 144/68 H 98 Room Air 2 08/09/22 05:00 08/09/22 05:28 08/09/22 05:00 08/09/22 05:00 08/09/22 05:00 08/09/22 07:51 08/09/22 07:51 Oxygen Flow Rate (L/min) 2 Oxygen Delivery Method Room Air Weight: 144 lb 2 oz Body Mass Index (BMI) 28.1 Intake & Output: Intake and Output for Last 24 Hours 08/07/22 08/08/22 08/09/22 23:59 23:59 23:59 Intake Total 2185 / 2205 2385 / 2385 110 / 110 Output Total 850 / 950 450 / 450 Balance 1335 / 1255 1935 / 1935 110 / 110 Lab / Micro Data Result Diagrams: 08/09/22 06:20 08/09/22 06:20 Labs: Laboratory Results - last 24 hr 08/08/22 05:07: Hemoglobin A1c 5.8 H 08/08/22 13:04: POC Glucose 67 L 08/08/22 13:44: POC Glucose 72 L 08/08/22 18:38: POC Glucose 123 H 08/08/22 23:41: POC Glucose 143 H 08/09/22 05:23: POC Glucose 154 H 08/09/22 06:20: WBC 6.5, RBC 3.38 L, Hgb 10.3 L, Hct 31.4 L, MCV 92.9, MCH 30.5,MCHC 32.8, RDW Std Deviation 43.0, RDW Coeff of Rojelio 12.5, Plt Count 122 L, MPV 10.7, Immature Gran % (Auto) 0.500, Neut % (Auto) 87.4 H, Lymph % (Auto) 5.5 L, Gregg % (Auto) 6.6, Eos % (Auto) 0.0, Baso % (Auto) 0.0, Absolute Neuts (auto) 5.7, Absolute Lymphs (auto) 0.36 L, Nucleated RBC % 0, Differential Comment SCANNED 08/09/22 06:20: Sodium 140, Potassium 3.8, Chloride 108 H, Carbon Dioxide 21.0, Anion Gap 11, BUN 32 H, Creatinine 1.20 H, Estim Creat Clear Calc 30.89, Est GFR(MDRD) Af Amer 57 L, Est GFR (MDRD) Non-Af 47 L, BUN/Creatinine Ratio 26.7 H, Glucose 171 H, Calcium 8.3 L, Phosphorus 4.3, Magnesium 2.0 Physical Exam Const alert and no apparent distress HEENT HEENT Narrative: NG tube intact GI GI Narrative: Abdominal incisions c/d/i. No erythema or infection noted Auscultation: hypoactive bowel sounds Palpation: soft and tender LLQ Assessment & Plan Assessment/Plan (1) Complete small bowel obstruction: PLAN: S/p diagnostic laparoscopy and lysis of adhesions Patient progressing well Discussed with patient this morning the importance of ambulation and sitting in a chair Discussed chewing gum and candy Labs were reviewed. Will order lab work for tomorrow morning Increase IV fluids to rate of 100 Continue NG tube until bowel function We will continue to follow with patient Start discharge planning Charges/Coding Visit Charges Inpatient E&M: 05223 Subs Hosp L1 (post-op) 08/09/22 0948 <Electronically signed by Heidi DIAS PA-C> Cosigner Signature (if applicable): CC: ~ Signed [facility] Work Phone: [phone] 513-904802-27-2023 [facility] Sosa [facility] August 08, 2022 10:31am Note Date/Time August 08, 2022 8:55[facility] Medical Records Department [address] [place] [address] Progress Note - Surgery 08/08/22 0855 MR#: [id number] Acct: [id number] Name: ANGELICA TORIBIO Rep #:[id number] : 1950 72 From: Mitch Wynn PCP: Dr. Carmen Johnson MD Status:AD M IN Location: [place] [address] Subjective Subjective Patient seen and examined on rounds. She is overall resting in bed, but complains of intermittent abdominal pain. She denies any significant nausea, but also denies any gas or bowel movements overnight. Objective Data Objective Data Vital Signs: Vital Signs Temp Pulse Resp BP Pulse Ox O2 Del Method 99 F 79 16 167/77 H 90 Room Air 08/08/22 06:50 08/08/22 06:51 08/08/22 06:50 08/08/22 06:51 08/08/22 06:50 08/08/22 06:50 Oxygen Delivery Method Room Air Weight: 144 lb 2 oz Body Mass Index (BMI) 28.1 Intake & Output: Intake and Output for Last 24 Hours 08/06/22 08/07/22 08/08/22 23:59 23:59 23:59 Intake Total 3520.00 / 3520.00 2185 / 2205 1060 / 1060 Output Total 850 / 950 150 / 150 Balance 3520.00 / 3520.00 1335 / 1255 910 / 910 Lab / Micro Data Result Diagrams: 08/08/22 05:07 08/08/22 05:07 Labs: Laboratory Results - last 24 hr 08/07/22 05:41: POC Glucose 171 H 08/07/22 10:27: POC Glucose 163 H 08/07/22 12:13: POC Glucose 146 H 08/07/22 17:57: POC Glucose 159 H 08/08/22 00:10: POC Glucose 100 08/08/22 05:07: WBC 7.2, RBC 3.41 L, Hgb 10.6 L, Hct 31.7 L, MCV 93.0 D, MCH 31.1, MCHC 33.4 D, RDW Std Deviation 43.8, RDW Coeff of Rojelio 12.9, Plt Count 127L, MPV 10.5, Immature Gran % (Auto) 0.100, Neut % (Auto) 72.2 H, Lymph % (Auto) 16.4 L, Gregg % (Auto) 9.6, Eos % (Auto) 1.3, Baso % (Auto) 0.4, Absolute Neuts (auto) 5.2, Absolute Lymphs (auto) 1.18, Nucleated RBC % 0 08/08/22 05:07: Sodium 141, Potassium 3.7, Chloride 110 H, Carbon Dioxide 25.0, Anion Gap 6, BUN 21 H, Creatinine 1.09 H, Estim Creat Clear Calc 34.00, Est GFR (MDRD) Af Amer 64, Est GFR (MDRD) Non-Af 53 L, BUN/Creatinine Ratio 19.3, Glucose 99, Calcium 8.6, Phosphorus 3.0, Magnesium 1.7 08/08/22 05:30: POC Glucose 104 Radiography Diagnostic Testing: Radiology Impression Small Bowel X-Ray 08/06/22 10:30 IMPRESSION: No evidence to suspect obstruction on the small bowel follow-through study. Findings suggest ileus with increased transit time of contrast to the colon. Transit time is somewhere between 12 and 24 hours Electronically Signed: Sunday Pagan MD at 11:05 EST , KUB X-Ray 08/08/22 05:17 IMPRESSION: Bowel gas pattern suggesting partial small bowel obstruction. Electronically Signed: Mateo Greenfield MD at 5:38 EST , Physical Exam Const oriented x3 Constitutional Narrative: Patient responds tangentially and indirectly to questioning despite persistent redirection Resp normal respiratory effort GI GI Narrative: Mildly distended, soft, minimally tender to palpation in lower abdominal quadrants. Nasogastric tube to intermittent wall suction with bilious output. Assessment & Plan Assessment/Plan (1) Complete small bowel obstruction: PLAN: Is a 72-year-old female who presents acutely for an associated nausea and abdominal pain. ER work-up pointed to a early high-grade small bowel obstruction with transition point in the pelvis on the right. Yesterday patienthad small bowel series begun via her nasogastric tube. Today she, again, deniesany return of bowel function. KUB was obtained again this morning and shows persistent dilation of proximal small bowel loops. This time radiology confirmsmy suspicion from yesterday that patient has evidence of a high-grade partial small bowel obstruction. Based on the suspicion and patient's lack of bowel function, I recommend proceeding for diagnostic laparoscopy. Patient is initially reluctant, but ultimately provides her consent to proceed. Plan: Neuro: As needed Dilaudid (will use sparingly given patient's current affect) Pulm/CV: Maintain head of bed elevation, aspiration precautions, hydralazine as needed, antihypertensives per hospitalist FEN/GI: Active monitoring of electrolytes while patient n.p.o., n.p.o. with NG tube to low intermittent wall suction, proceed to the OR today for diagnostic laparoscopy, adhesiolysis, possible laparotomy/possible bowel resection : No current issues Heme/ID: Trend CBC Endo: Diabetes management per hospitalist service Proph: SCDs, encourage ambulation Dispo: Continue inpatient stay Charges/Coding Visit Charges Inpatient E&M: 57332 Subs Hosp L2 08/08/22 1031 <Electronically signed by Mitch Sosa MD> Cosigner Signature (if applicable): CC: ~ Signed [facility] Work Phone: [phone]) 768-904802-26-[address] Sosa [facility] August 07, 2022 12:41pm Note Date/Time August 07, 2022 8:26am [facility] Medical Records Department [address] [place] [id number] Progress Note - Surgery 08/07/22825 MR#: [id number] Acct: [id number] Name: ANGELICA TORIBIO Rep #:[id number] : 1950 72 From: Mitch Wynn PCP: Dr. Carmen Johnson MD Status:AD M IN Location: [place] [address] Subjective Subjective Patient was seen and evaluated multiple times throughout the morning. She is initially found sitting in a chair complaining of colicky abdominal pain. She denied any nausea or vomiting overnight. However, she also denied any passage of flatus or bowel movement. Objective Data Objective Data Vital Signs: Vital Signs Temp Pulse Resp BP Pulse Ox O2 Del Method 98.7 F 78 18 151/72 H 99 Room Air 08/07/22 08:10 08/07/22 08:10 08/07/22 08:10 08/07/22 08:10 08/07/22 08:10 08/07/22 08:10 Oxygen Delivery Method Room Air Weight: 144 lb 2 oz Body Mass Index (BMI) 28.1 Intake & Output: Intake and Output for Last 24 Hours 08/05/22 08/06/22 08/07/22 23:59 23:59 23:59 Intake Total 3520.00 / 3520.00 965 / 965 Balance 3520.00 / 3520.00 965 / 965 Lab / Micro Data Result Diagrams: 08/07/22 05:03 08/07/22 05:03 Labs: Laboratory Results - last 24 hr 08/06/22 18:13: POC Glucose 187 H 08/07/22 00:04: POC Glucose 141 H 08/07/22 05:03: WBC 9.0, RBC 3.82 L, Hgb 11.8 L, Hct 37.5, MCV 98.2 D, MCH 30.9, MCHC 31.5 L D, RDW Std Deviation 46.0 H, RDW Coeff of Rojelio 13.0, Plt Count 163, MPV 10.7, Immature Gran % (Auto) 0.400, Neut % (Auto) 80.8 H, Lymph % (Auto) 10.9 L, Gregg % (Auto) 7.2, Eos % (Auto) 0.4, Baso % (Auto) 0.3, Absolute Neuts (auto) 7.3, Absolute Lymphs (auto) 0.98, Nucleated RBC % 0 08/07/22 05:03: Sodium 139, Potassium 4.5, Chloride 109 H, Carbon Dioxide 24.0, Anion Gap 6, BUN 30 H, Creatinine 1.36 H, Estim Creat Clear Calc 27.25, Est GFR (MDRD) Af Amer 49 L, Est GFR (MDRD) Non-Af 41 L, BUN/Creatinine Ratio 22.1 H, Glucose 173 H, Calcium 9.1, Phosphorus 3.8, Magnesium 1.9 Physical Exam Const oriented x3 Constitutional Narrative: Mild distress from abdominal discomfort and tube discomfort (an NG tube) Resp normal respiratory effort GI GI Narrative: Mildly increased abdominal distention, soft, initially tender to palpation across the lower abdominal quadrants (right greater than left)?but this improvedthroughout the morning Assessment & Plan Assessment/Plan (1) Complete small bowel obstruction: PLAN: Is a 72-year-old female who presents acutely for an associated nausea and abdominal pain. ER work-up pointed to a early high-grade small bowel obstruction with transition point in the pelvis on the right. Yesterday patienthad small bowel series begun via her nasogastric tube. Today she denies any return of bowel function, but 23-hour film for her small bowel series showed contrast predominantly in her right colon. I had initially recommended proceeding to the operating room for diagnostic laparoscopy, but on noting this result I reevaluated the patient and she stated that she had 1 episode of emesisbut her symptoms of abdominal pain are markedly improved. Radiology had not formally submitted a read for the small bowel series study so I telephoned the reading radiologist and they confirmed that they saw contrast entering the colonand that patient's bowel gas pattern was nonobstructive throughout the earlier images and the small bowel series. Therefore they were concluding that patient exhibited more of an ileus picture than a mechanical obstruction. Following this conversation, patient's abdomen remained benign so I made the decision to hold off on surgery today. Plan to return patient to hospital bell for further NG tube decompression and we will repeat a KUB in the a.m. as we see if she willhave spontaneous return of bowel function with some additional time. I discussed with both patient and her close friend that this decision did not takesurgery off the table entirely for this admission. I remain suspicious for possible partial bowel obstruction that is allowing some contrast passage but still leading to proximal small bowel distention. Plan: Neuro: As needed Dilaudid (will use sparingly given patient's current affect) Pulm/CV: Maintain head of bed elevation, aspiration precautions, hydralazine as needed, antihypertensives per hospitalist FEN/GI: Active monitoring of electrolytes while patient n.p.o., n.p.o. with NG tube to low intermittent wall suction, small bowel follow-through?follow-up readand obtained KUB a.m. of 08/08/2022 : No current issues Heme/ID: Trend CBC Endo: Diabetes management per hospitalist service Proph: SCDs, encourage ambulation Dispo: Continue inpatient stay Charges/Coding Visit Charges Inpatient E&M: 61006 Subs Hosp L2 08/07/22 1241 <Electronically signed by Mitch Sosa MD> Cosigner Signature (if applicable): CC: ~ Signed [facility] Work Phone: [phone] 261-926802-26-[address] Rincon [facility] August 07, 2022 12:05pm Note Date/Time August 07, 2022 7:27am [facility] Medical Records Department [address] [place] [address] Progress Note - Hospitalist 08/07/22723 MR#: [id number] Acct: [id number] Name: ANGELICA TORIBIO Rep #:[id number] : 1950 72 From: Polo Rincon DO PCP: Dr. Carmen Johnson MD Status:AD M IN [id number] Reason for Visit Reason for Visit: Diagnoses Complete intestinal obstruction, unspecified as to cause (08/06/22) Subjective Subjective Complaining of belly pain and pain in the back of her throat and the pain with the NG tube. Patient had been recommended to proceed with surgery but the patient seems very focused about the NG tube and wanting that taken out. Objective Data Objective Data Vital Signs: Vital Signs Temp Pulse Resp BP Pulse Ox O2 Del Method 36.4 C L 83 16 146/64 H 95 Room Air 08/07/22 03:19 08/07/22 05:45 08/07/22 03:19 08/07/22 05:45 08/07/22 03:19 08/07/22 03:19 Oxygen Delivery Method Room Air Weight: 65.374 kg Body Mass Index (BMI) 28.1 Intake & Output: Intake and Output for Last 24 Hours 08/05/22 08/06/22 08/07/22 23:59 23:59 23:59 Intake Total 3520.00 / 3520.00 965 / 965 Balance 3520.00 / 3520.00 965 / 965 Lab / Micro Data Result Diagrams: 08/07/22 05:03 08/07/22 05:03 Labs: Laboratory Results - last 24 hr 08/06/22 18:13: POC Glucose 187 H 08/07/22 00:04: POC Glucose 141 H 08/07/22 05:03: WBC 9.0, RBC 3.82 L, Hgb 11.8 L, Hct 37.5, MCV 98.2 D, MCH 30.9, MCHC 31.5 L D, RDW Std Deviation 46.0 H, RDW Coeff of Rojelio 13.0, Plt Count 163, MPV 10.7, Immature Gran % (Auto) 0.400, Neut % (Auto) 80.8 H, Lymph % (Auto) 10.9 L, Gregg % (Auto) 7.2, Eos % (Auto) 0.4, Baso % (Auto) 0.3, Absolute Neuts (auto) 7.3, Absolute Lymphs (auto) 0.98, Nucleated RBC % 0 08/07/22 05:03: Sodium 139, Potassium 4.5, Chloride 109 H, Carbon Dioxide 24.0, Anion Gap 6, BUN 30 H, Creatinine 1.36 H, Estim Creat Clear Calc 27.25, Est GFR (MDRD) Af Amer 49 L, Est GFR (MDRD) Non-Af 41 L, BUN/Creatinine Ratio 22.1 H, Glucose 173 H, Calcium 9.1, Phosphorus 3.8, Magnesium 1.9 Physical Exam Const alert Constitutional Narrative: Minimal eye contact. Up in chair. Anxious. Keeps perseverating about the NG tube in her nose. HEENT head/scalp atraumatic and moist oral mucous membranes Extremity normal to inspection Assessment & Plan Assessment/Plan (1) Complete small bowel obstruction: PLAN: Abdominal pain, nausea, emesis w/ high-grade mechanical SBO: Patient will be admitted per general surgery to the floor the discretion but given hypertension recommend telemetry for usage of IV as needed regimen, maintain on IVFs, would expect to continue NGT to suction, strict I&Os, IV pain/anti-emeticsPRN, PPI IV, maintain NPO on bowel rest. Small bowel follow-through General surgery recommending exploratory laparotomy for possible lysis of adhesions and so forth. Recommended also that for the patient as well. Patientdoes peer to be bit a rational focus solely on her NG tube and asking for that,. I told her that if it comes out I would likely have to go back in if she were to have require surgery but ultimately decision is hers but of a size that she had 2 physicians both recommending the same thing but if she does not want surgery that certainly her choice and if she could potentially get worse and if that point then would recommend hospice. Patient does not seem to be rational at this point in time. (2) Hypokalemia: PLAN: Hypokalemia: Admission K+ 3.4, magnesium level requested, supplementation given, repeat level in AM. PLAN: Plan Chronic conditions * Carotid disease: Given presentation holding all oral medications, resume aspirin antihypertensive medications following, not on statin therapy. * Hypertension: Holding all oral medications given presentation as noted #1, as needed IV hydralazine and may have IV Lopressor addition if needed. * Hyperlipidemia: Not on statin therapy, defer to outpatient. * Chronic Kidney Disease Stage III, unclear subtype: Admission BUN/Cr 29/1.15, baseline renal function primarily 1.1-1.3, repeat BMP in AM. * Diabetes mellitus type II: Hold oral home regimen, n.p.o. status given acute presentation, accu checks w/ ISS, if hypoglycemia onset low threshold to transition to IV fluids with dextrose. * GERD: We will maintain on IV PPI. * Possible underlying depression: Patient with very flat affect, very somber with her acute presentation, reporting that most people have and that she does not have any people left 1 discussions occurred regarding healthcare power of family law attorney. Will need close follow-up and assessment for depression. DVT prophylaxis: SCDs, holding chemoprophylaxis given likely OR needs. CODE status: Patient HCPOA is not in place and currently she is unable to give aname for someone she would want to be her decision-maker and living will is in place. Discussed CODE status at length including difference between FULL code, DNR-CCA and DNR-CC status. Charges/Coding Visit Charges Inpatient E&M: 24569 Subs Hosp L2 08/07/22 1205 <Electronically signed by Polo Rincon DO> Cosigner Signature (if applicable): CC: ~ Signed [facility] Work Phone: [phone]) [phone] History and physical note Author Dr. Sosa [facility] August 06, 2022 9:37am Note Date/Time August 06, 2022 7:05am [facility] Medical Records Department [address] [place] [address] History & Physical Exam 08/06/22 0704 MR#: [id number] Acct: [id number] Name: ANGELICA TORIBIO Rep #:[id number] : 1950 72 From: Mitch Wynn PCP: Dr. Carmen Johnson MD Status:AD M IN [place] [facility] [id number] HPI - General General Date of Admission: 08/06/22 Chief Complaint: Acute onset abdominal pain HPI Narrative ANGELICA TORIBIO, is a 72 F who presents to [facility] with complaints of 3 hours of acute onset abdominal pain and associated nausea. History is obtained in part through emergency medicine physician as patient is anunreliable historian with our first encounter given in over narcotized appearance and falls asleep midsentence. Patient apparently went out to dinner at a local diner last evening and then began with abdominal discomfort approximately 3 hours later. Sometime thereafter she began with nausea, but no vomiting. Patient's ER work-up was significant for CBC with normal WBC, but CT imaging showed evidence of small bowel obstruction with transition point likely in the right lower quadrant. There is also some mesenteric edema noted in proximity to this transition point. Nasogastric tube was ordered upon consultation and placed with good positioning per follow-up KUB. Patient statesthat this is the first time that she has had any issues with blockages. Her only past surgical history was a total abdominal hysterectomy performed 20+ years ago. [facility] Medical History Cardiac murmur Carotid stenosis, bilateral Diabetes GERD (gastroesophageal reflux disease) HTN (hypertension) Osteoarthritis Vertigo Home Medications cholecalciferol (vitamin D3) 1,250 mcg (50,000 unit) capsule 1 tab PO QWEEK Check with primary doctor 03/03/19 [History Last Taken Unknown] glimepiride 4 mg tablet 1 tab PO DAILY Check with primary doctor 03/03/19 [History Last Taken 08/06/22] indapamide 1.25 mg tablet 1.25 mg PO DAILY Check with primary doctor 03/03/19 [History Last Taken 08/05/22] metoprolol tartrate 50 mg tablet 50 mg PO BID Check with primary doctor 03/03/19[History Last Taken 08/06/22] naproxen 500 mg tablet 500 mg PO BID PRN Pain 03/03/19 [History Last Taken Unknown] ondansetron 4 mg disintegrating tablet 4 mg PO Q8H PRN PRN Nausea #6 tabs 03/03/19 [Rx Last Taken Unknown] tramadol 50 mg tablet 50 mg PO DAILY 03/03/19 [History Last Taken Unknown] Carbamide Peroxide [Ear Drops] 15 ml OT BID #150 mL 03/06/19 [Rx Last Taken Unknown] amlodipine 10 mg tablet 10 mg PO DAILY #60 tabs 03/06/19 [Rx Last Taken Unknown] meclizine 25 mg tablet 25 mg PO Q6H PRN Dizziness 08/06/22 [History Last Taken Unknown] Allergy/AdvReac Type Severity Reaction Status Date / Time furosemide [From Lasix] Allergy Hives Verified 08/06/22 03:36 Sulfa (Sulfonamide Allergy Hives Verified 08/06/22 03:36 Antibiotics) Family History Mother Heart disease Hypertension Diabetes Father Heart disease Hypertension Diabetes Surgical History History of dilation and curettage History of partial hysterectomy Social History household members: none Smoking Status: Never smoker alcohol intake: never substance use type: does not use Vital Signs Vital Signs Vital Signs: 08/06/22 03:30 08/06/22 03:35 08/06/22 05:27 Temperature 97.6 F L Temperature Source Oral Pulse Rate 76 Respiratory Rate 15 Blood Pressure 212/76 H 212/76 H Blood Pressure Mean 121 121 Blood Pressure Source Blood Pressure Position Blood Pressure Location Pulse Ox 96 91 Oxygen Delivery Method Room Air Room Air 08/06/22 06:00 08/06/22 06:13 08/06/22 06:59 Temperature 97.2 F L 97.8 F Temperature Source Temporal Oral Pulse Rate 74 90 69 Respiratory Rate 18 18 18 Blood Pressure 162/75 H 154/68 H 193/73 H Blood Pressure Mean 104 96 113 Blood Pressure Source Monitor Blood Pressure Position Semi-Fowlers Blood Pressure Location Left Arm Pulse Ox 97 99 97 Oxygen Delivery Method Room Air Room Air Room Air Weight Weight: 144 lb 2 oz Body Mass Index (BMI) 28.1 Physical Exam Const Constitutional Narrative: Patient is somnolent and somewhat confused. She has difficulty completing full thoughts before she falls asleep. She acknowledges some persistent abdominal discomfort and reports that she is fearful about her situation. Resp normal respiratory effort GI GI Narrative: Minimally distended. Soft. Tenderness to palpation across lower abdominal quadrants. Voluntary guarding present intermittently. Nasogastric tube with minimal output Results Lab / Micro Data Result Diagrams: 08/06/22 03:37 08/06/22 03:37 Labs: Laboratory Results - last 24 hr 08/06/22 03:37: WBC 5.9, RBC 4.12 L, Hgb 12.7, Hct 38.3, MCV 93.0, MCH 30.8, MCHC 33.2, RDW Std Deviation 43.6, RDW Coeff of Rojelio 12.8, Plt Count 166, MPV 10.2, Immature Gran % (Auto) 0.200, Neut % (Auto) 56.9, Lymph % (Auto) 30.5, Gregg % (Auto) 9.4, Eos % (Auto) 2.5, Baso % (Auto) 0.5, Absolute Neuts (auto) 3.4, Absolute Lymphs (auto) 1.81, Nucleated RBC % 0 08/06/22 03:37: Sodium 140, Potassium 3.4 L, Chloride 106, Carbon Dioxide 30.0, Anion Gap 4 L, BUN 29 H, Creatinine 1.15 H, Estim Creat Clear Calc 32.23, Est GFR (MDRD) Af Amer 60, Est GFR (MDRD) Non-Af 49 L, BUN/Creatinine Ratio 25.2 H, Glucose 125 H, Calcium 9.8, Total Bilirubin 0.60, AST 18, ALT 24, Alkaline Phosphatase 81, Total Protein 7.2, Albumin 3.6, Globulin 3.6, Albumin/Globulin Ratio 1.0, Amylase 100, Lipase 201 08/06/22 03:37: Magnesium 2.2 Radiology Impression Abdomen/Pelvis CT 08/06/22 03:50 IMPRESSION: 1. Early high-grade distal mechanical small bowel obstruction with secondary mesenteric edema and small volume ascites. Recommend surgical consultation. Obstruction possibly secondary to focal adhesion or stricture. 2. Small amount of high attenuation fluid within distal gastric lumen and proximal duodenum, presumed small amount of ingested radiographic contrast or antacid medication. Follow-up as clinically warranted if concern for upper GI hemorrhage. 3. Other nonurgent findings within body of report. Electronically Signed: Mateo Greenfield MD at 5:25 EST , ADDENDUM: 08/06/22 0536 IMPRESSION: 1. Early high-grade distal mechanical small bowel obstruction with secondary mesenteric edema and small volume ascites. Recommend surgical consultation. Obstruction possibly secondary to focal adhesion or stricture. 2. Small amount of high attenuation fluid within distal gastric lumen and proximal duodenum, presumed small amount of ingested radiographic contrast or antacid medication. Follow-up as clinically warranted if concern for upper GI hemorrhage. 3. Other nonurgent findings within body of report. N.B. : The above Results were Read Back by Mateo Greenfield MD to Eloy Dent MD, and understanding confirmed on 08/06/2022 05:29:05 (ET). Electronically Signed: Mateo Greenfield MD at 5:25 EST , KUB X-Ray 08/06/22 05:40 IMPRESSION: Adequate position of enteric tube. Electronically Signed: Mateo Greenfield MD at 6:16 EST , Assessment & Plan Assessment/Plan (1) Complete small bowel obstruction: PLAN: Is a 72-year-old female who presents acutely for an associated nausea. ERwork-up appears to point to a early high-grade small bowel obstruction with transition point in the pelvis on the right. Although there was minimal gastricdistention and no vomiting, I requested placement of a nasogastric tube for proximal decompression to facilitate enteroclysis and, if need be, decompressionfor minimally invasive surgery. It is difficult to obtain either history or good exam from patient as she is somnolent from the pain medication she received in the emergency department. What exam I am able to obtain, is overall reassuring that she has minimal distention and her abdominal wall is soft. Therefore I would like to continue decompression for a few hours before beginning a small bowel follow- through. Hospitalist service was consulted to assist with patient's other comorbidities. Patient appears to require further assistance with her hypertension, specifically. Plan: Neuro: As needed Dilaudid (will use sparingly given patient's current affect) Pulm/CV: Maintain head of bed elevation, aspiration precautions, hydralazine as needed, antihypertensives per hospitalist FEN/GI: Active monitoring of electrolytes while patient n.p.o., n.p.o. with NG tube to low intermittent wall suction, small bowel follow-through later today : No current issues Heme/ID: Trend CBC Endo: Diabetes management per hospitalist service Proph: SCDs, encourage ambulation Dispo: Admit to inpatient 08/06/22 0937 <Electronically signed by Mitch Sosa MD> Cosigner Signature (if applicable): CC: Dr. Carmen Johnson MD; Dr. Mitch Sosa MD~ Signed [facility] Work Phone: [phone]) 226-519902-25-[address] Isidro [facility] August 06, 2022 6:12am Note Date/Time August 06, 2022 5:47am [facility] Medical Records Department [address] [place] [address] Consultation - Hospitalist 08/06/22 0547 MR#: [id number] Acct: [id number] Name: ANGELICA TORIBIO Rep #:[id number] : 1950 72 From: Susan Isidro MD PCP: Dr. Carmen Johnson MD Status:AD M IN [place] [facility] [id number] Assessment & Plan Assessment/Plan (1) Complete small bowel obstruction: PLAN: Plan The patient is a 72 y/o F w/ PMHx: Diabetes mellitus type II, HTN, HLD, GERD, Carotid stenosis BL who presents to the [facility] ED on 08/06/22 with history of onset of abdominal pain, intermittent, diffuse, sharp and stabbing in nature with no nausea or emesis associated starting approximately 3 hours prior to ED presentation reporting it initially in the periumbilical region and then more diffusely in the entire abdomen with nothing causing it to worsen or improve prompting eventual EMS call for transition for evaluation. #1. Abdominal pain, nausea, emesis w/ high-grade mechanical SBO: Patient will be admitted per general surgery to the floor the discretion but given hypertension recommend telemetry for usage of IV as needed regimen, maintain on IVFs, would expect to continue NGT to suction, strict I&Os, IV pain/anti-emeticsPRN, PPI IV, maintain NPO on bowel rest. ED noted general surgery intention to transition to the OR this a.m. given severity of findings and high-.grade #2. Hypokalemia: Admission K+ 3.4, magnesium level requested, supplementation given, repeat level in AM. #3. Carotid disease: Given presentation holding all oral medications, resume aspirin antihypertensive medications following, not on statin therapy. #4. Hypertension: Holding all oral medications given presentation as noted #1, as needed IV hydralazine and may have IV Lopressor addition if needed. #5. Hyperlipidemia: Not on statin therapy, defer to outpatient. #6. Chronic Kidney Disease Stage III, unclear subtype: Admission BUN/Cr 29/1.15, baseline renal function primarily 1.1-1.3, repeat BMP in AM. #7. Diabetes mellitus type II: Hold oral home regimen, n.p.o. status given acute presentation, accu checks w/ ISS, if hypoglycemia onset low threshold to transition to IV fluids with dextrose. #8. GERD: We will maintain on IV PPI. #9. Possible underlying depression: Patient with very flat affect, very somber with her acute presentation, reporting that most people have and that she does not have any people left 1 discussions occurred regarding healthcare power of family law attorney. Will need close follow-up and assessment for depression. #10. DVT prophylaxis: SCDs, holding chemoprophylaxis given likely OR needs. #11. CODE status: Patient HCPOA is not in place and currently she is unable to give a name for someone she would want to be her decision-maker and living will is in place. Discussed CODE status at length including difference between FULL code, DNR-CCA and DNR-CC status. Following discussions about the differences in these status, requested DNR-CCA, no intubation. Advanced Care Planning Face to Face Time: 16 minutes. Admission Evaluation Time spent evaluating chart, patient history, patient evaluation, care planning and discussion with specialists: 60 minutes. HPI Consult Data Date of Consult: 08/06/22 HPI Narrative Reason for Consultation: Medical consultation HPI Narrative: The patient is a 72 y/o F w/ PMHx: Diabetes mellitus type II, HTN, HLD, GERD, Carotid stenosis BL who presents to the [facility] ED on 08/06/22 with history of onset of abdominal pain, intermittent, diffuse, sharp and stabbing in nature with no nausea or emesis associated starting approximately 3 hours prior to ED presentation reporting it initially in the periumbilical region and then more diffusely in the entire abdomen with nothing causing it to worsen or improve prompting eventual EMS call for transition for evaluation. Patient is having severe 10 out of 10 pain although reports that it is slightly lessened since NG tube placement but is very frustrated. In the ED with questioning she is very soft-spoken and has a flat affect. Work- up in the ED included T97.6, heart rate 76, BP 212/76, respiratory rate 15, 96% on room air, CBC with WC 5.9, hemoglobin 12.7, platelet 166 without shift, CMP with potassium 3.4, BUN/creatinine 29/1.15, glucose 125 CT abdomen and pelvis with early high- grade distal mechanical small bowel obstruction with secondary mesenteric edema and small volume ascites, small amount of high attenuation fluid in the distal gastric lumen and proximal duodenum, presumed small might of ingested radiographic contrast or antacid medication. ED discussed case with general surgery who willplan admission and transition to OR this a.m. with request consultation to have service for medical management. [facility] Medical History Cardiac murmur Carotid stenosis, bilateral Diabetes GERD (gastroesophageal reflux disease) HTN (hypertension) Osteoarthritis Vertigo Home Medications cholecalciferol (vitamin D3) 1,250 mcg (50,000 unit) capsule 1 tab PO QWEEK 03/03/19 [History Last Taken Unknown] glimepiride 4 mg tablet 1 tab PO DAILY 03/03/19 [History Last Taken Unknown] indapamide 1.25 mg tablet 1.25 mg PO DAILY 03/03/19 [History Last Taken Unknown] metoprolol tartrate 50 mg tablet 50 mg PO BID 03/03/19 [History Last Taken Unknown] naproxen 500 mg tablet 500 mg PO BID PRN Pain 03/03/19 [History Last Taken Unknown] ondansetron 4 mg disintegrating tablet 4 mg PO Q8H PRN PRN Nausea #6 tabs 03/03/19 [Rx Last Taken Unknown] tramadol 50 mg tablet 50 mg PO DAILY 03/03/19 [History Last Taken Unknown] Carbamide Peroxide [Ear Drops] 15 ml OT BID #150 mL 03/06/19 [Rx Last Taken Unknown] amlodipine 10 mg tablet 10 mg PO DAILY #60 tabs 03/06/19 [Rx Last Taken Unknown] meclizine 25 mg tablet 25 mg PO Q6H 03/06/19 [Rx Last Taken Unknown] Allergy/AdvReac Type Severity Reaction Status Date / Time furosemide [From Lasix] Allergy Hives Verified 08/06/22 03:36 Sulfa (Sulfonamide Allergy Hives Verified 08/06/22 03:36 Antibiotics) Family History Mother Heart disease Hypertension Diabetes Father Heart disease Hypertension Diabetes Surgical History History of dilation and curettage History of partial hysterectomy Social History household members: none Smoking Status: Never smoker alcohol intake: never substance use type: does not use ROS ROS Narrative Admission Review of Systems: CONSTITUTIONAL: No weight loss, fever, chills, + weakness or fatigue. HEENT: Eyes: No visual loss, blurred vision, double vision or yellow sclerae. Ears, Nose, Throat: No hearing loss, sneezing, congestion, runny nose or sore throat. SKIN: No rash or itching, lesions, wounds. CARDIOVASCULAR: No chest pain, chest pressure or chest discomfort, palpitations,edema, orthopnea, syncopal events. RESPIRATORY: No shortness of breath, cough or sputum, wheezing, hemoptysis. GASTROINTESTINAL: + anorexia, abdominal pain, No nausea, vomiting, diarrhea, melena, BRBPR. GENITOURINARY: No dysuria, frequency, urgency or retention. NEUROLOGICAL: No headache, dizziness, syncope, paralysis, ataxia, numbness or tingling in the extremities, focal weakness, change in bowel or bladder control,seizure. MUSCULOSKELETAL: + muscle, back pain, joint pain or stiffness. HEMATOLOGIC: No anemia, bleeding or bruising. LYMPHATICS: No enlarged nodes. No history of splenectomy. PSYCHIATRIC: + Suspect depression. ENDOCRINOLOGIC: No reports of sweating, cold or heat intolerance. No polyuria orpolydipsia. ALLERGIES: + history of hives. Physical Exam Narrative Physical Examination: General: Awake, alert, oriented x 3 and cooperative, seated upright in the ED bed, very soft-spoken, irritable most recent NG tube placement per discussion with staff Skin: Normal color, normal turgor, no icterus, no cyanosis except for occasionalstaged ecchymoses. HEENT: AT/NC, EOMI, PERRLA, dry MM, NG tube in place, carotid bruits or JVD noted. Lungs: Mildly diminished, good bases, appropriate effort, no rales, ronchi or wheezing. Heart: Regular rate and rhythm; no gallop, rub audible. Abdomen: Soft, obese, severely tender to palpation in all quadrants, mild guarding, mildly distended, absent bowel sounds, difficulty assessing HSM given pain Extremities: No cyanosis, clubbing, or edema. Neurological: Patient awake, alert, oriented as noted, cognitive function appears intact; pupils equally reactive to light and accommodation, cranial nerves II- XII grossly normal, moving all 4 extremities, no focal deficits, strength moderately global decrease secondary to acute presentation Psychiatric: Affect appears flat, uncomfortable appearing, suspect underlying depression based on patient's comments. Lab / Micro Data Result Diagrams: 08/06/22 03:37 08/06/22 03:37 Labs: Laboratory Results - last 24 hr 08/06/22 03:37: WBC 5.9, RBC 4.12 L, Hgb 12.7, Hct 38.3, MCV 93.0, MCH 30.8, MCHC 33.2, RDW Std Deviation 43.6, RDW Coeff of Rojelio 12.8, Plt Count 166, MPV 10.2, Immature Gran % (Auto) 0.200, Neut % (Auto) 56.9, Lymph % (Auto) 30.5, Gregg % (Auto) 9.4, Eos % (Auto) 2.5, Baso % (Auto) 0.5, Absolute Neuts (auto) 3.4, Absolute Lymphs (auto) 1.81, Nucleated RBC % 0 08/06/22 03:37: Sodium 140, Potassium 3.4 L, Chloride 106, Carbon Dioxide 30.0, Anion Gap 4 L, BUN 29 H, Creatinine 1.15 H, Estim Creat Clear Calc 32.23, Est GFR (MDRD) Af Amer 60, Est GFR (MDRD) Non-Af 49 L, BUN/Creatinine Ratio 25.2 H, Glucose 125 H, Calcium 9.8, Total Bilirubin 0.60, AST 18, ALT 24, Alkaline Phosphatase 81, Total Protein 7.2, Albumin 3.6, Globulin 3.6, Albumin/Globulin Ratio 1.0, Amylase 100, Lipase 201 Radiology Impression Abdomen/Pelvis CT 08/06/22 03:50 IMPRESSION: 1. Early high-grade distal mechanical small bowel obstruction with secondary mesenteric edema and small volume ascites. Recommend surgical consultation. Obstruction possibly secondary to focal adhesion or stricture. 2. Small amount of high attenuation fluid within distal gastric lumen and proximal duodenum, presumed small amount of ingested radiographic contrast or antacid medication. Follow-up as clinically warranted if concern for upper GI hemorrhage. 3. Other nonurgent findings within body of report. Electronically Signed: Mateo Greenfield MD at 5:25 EST , ADDENDUM: 08/06/22 0536 IMPRESSION: 1. Early high-grade distal mechanical small bowel obstruction with secondary mesenteric edema and small volume ascites. Recommend surgical consultation. Obstruction possibly secondary to focal adhesion or stricture. 2. Small amount of high attenuation fluid within distal gastric lumen and proximal duodenum, presumed small amount of ingested radiographic contrast or antacid medication. Follow-up as clinically warranted if concern for upper GI hemorrhage. 3. Other nonurgent findings within body of report. N.B. : The above Results were Read Back by Mateo Greenfield MD to Eloy Dent MD, and understanding confirmed on 08/06/2022 05:29:05 (ET). Electronically Signed: Mateo Greenfield MD at 5:25 EST , Charges/Coding Visit Charges Office Visits / Consults: 11162 IP Consult L4 Procedures Hospitalists Procedures: 35843 Advncd Care Plan 30 Min 08/06/22 0612 <Electronically signed by Susan Isidro MD> Cosigner Signature (if applicable): CC: Dr. Carmen Johnson MD~ Signed [facility] Work Phone: 1(118) 282-352802-25-[address] Dent [facility] August 06, 2022 6:07am Note Date/Time August 06, 2022 3:57am [facility] Medical Records Department [address] [place] [id number] Emergency Department Summary 08/06/22 MR#: [id number] Acct: [id number] Name: ANGELICA TORIBIO Rep #:[id number] : 1950 72 From: Ezequiel Dent MD PCP: Dr. Carmen Johnson MD Status:AD M IN [id number] HPI - GI History of Present Illness Chief Complaint: Abd Pain Informant: patient Abdominal Pain/Flank Pain Onset: Today Context: Sudden Onset Timing: Intermittent Quality: Sharp and Stabbing Location: Diffuse Current Severity: Mild Maximum Severity: Moderate Worsened by: Nothing Relieved by: Nothing Nausea/Vomiting/Emesis GI Symptom: Negative for Nausea or Vomiting Diarrhea/Melena/Hematochezia GI Symptom: Negative for Diarrhea, Melena or Hematochezia Associated Symptoms Associated Symptoms: Negative for Dysuria or Frequency Narrative Narrative: 72-year-old female history of prior hysterectomy. No other abdominal surgeries. States about 3 hours ago she had sudden onset of intermittent sharp stabbing periumbilical and diffuse abdominal pain. No prior history. No back or chest pain. No nausea, vomiting or diarrhea. Has had normal bowel movement in the last 2 days. Denies any dysuria. No fever. No melena. No significant weight loss. No falls or abdominal trauma. No prior similar pain. Nothing particularmakes it better or worse. She was brought in by squad. She was treated with pain medication prior to arrival. Prior similar symptoms: No Recent Illness/Hospitalization: No [facility] Medical History Cardiac murmur Carotid stenosis, bilateral Diabetes GERD (gastroesophageal reflux disease) HTN (hypertension) Osteoarthritis Vertigo Home Medications cholecalciferol (vitamin D3) 1,250 mcg (50,000 unit) capsule 1 tab PO QWEEK 03/03/19 [History Last Taken Unknown] glimepiride 4 mg tablet 1 tab PO DAILY 03/03/19 [History Last Taken Unknown] indapamide 1.25 mg tablet 1.25 mg PO DAILY 03/03/19 [History Last Taken Unknown] metoprolol tartrate 50 mg tablet 50 mg PO BID 03/03/19 [History Last Taken Unknown] naproxen 500 mg tablet 500 mg PO BID PRN Pain 03/03/19 [History Last Taken Unknown] ondansetron 4 mg disintegrating tablet 4 mg PO Q8H PRN PRN Nausea #6 tabs 03/03/19 [Rx Last Taken Unknown] tramadol 50 mg tablet 50 mg PO DAILY 03/03/19 [History Last Taken Unknown] Carbamide Peroxide [Ear Drops] 15 ml OT BID #150 mL 03/06/19 [Rx Last Taken Unknown] amlodipine 10 mg tablet 10 mg PO DAILY #60 tabs 03/06/19 [Rx Last Taken Unknown] meclizine 25 mg tablet 25 mg PO Q6H 03/06/19 [Rx Last Taken Unknown] Allergy/AdvReac Type Severity Reaction Status Date / Time furosemide [From Lasix] Allergy Hives Verified 08/06/22 03:36 Sulfa (Sulfonamide Allergy Hives Verified 08/06/22 03:36 Antibiotics) Family History (Updated 08/06/22 @ 06:[address] Susan Isidro MD) Mother Heart disease Hypertension Diabetes Father Heart disease Hypertension Diabetes Surgical History History of dilation and curettage History of partial hysterectomy Social History household members: none Smoking Status: Never smoker alcohol intake: never substance use type: does not use ROS ROS ED ROS Narrative Abdominal pain. Review of Systems ROS Unobtainable: Denies due to encephalopathy Constitutional Constitutional ED: Denies chills or fever(s) ENT ENT ED: Denies ear pain Cardiovascular Cardiovascular: Denies chest pain or palpitations Respiratory/Chest Respiratory/Chest: Denies cough or dyspnea Gastrointestinal Gastrointestinal: Reports abdominal pain; Denies constipation, diarrhea, melena,nausea or vomiting Genitourinary Genitourinary ED: Denies dysuria or hematuria Musculoskeletal Musculoskeletal: Denies arthralgias Integumentary Denies abscess Neurologic Neurologic: Denies headache(s) Psychiatric Psychiatric: Denies anxiety Endocrine Endocrinology: Denies polydipsia Hematologic/Lymphatic Hematologic/Lymphatic: Denies easy bleeding Allergic/Immunologic Allergic/Immunologic ED: Denies mouth swelling or tongue swelling EXAM Physical Exam Narrative Exam Narrative: 72 female vital signs are stable afebrile. Initial blood pressure is elevated 212/76. She does not look septic or toxic. At time she is pain-free at no timeshe is doubled over with abdominal pain. H EENT exam unremarkable. Neck nontender. Lungs clear to auscultation bilaterally. Heart regular rhythm rate about 75 no murmur. Chest wall nontender. Abdomen soft. Diffusely tender. Nohernia or mass. No signs of obstruction. No localizing tenderness to the rightupper or lower quadrant diffusely tender. No hernia or pulsatile mass. No signs of abdominal trauma. Moving all 4 extremities. Nontender no edema. Backnontender. Neurologically she is awake and alert moving all 4 extremities. Answering questions and following commands. Const Vital Signs: 08/06/22 03:30 08/06/22 03:35 08/06/22 05:27 Temperature 97.6 F L Temperature Source Oral Pulse Rate 76 Respiratory Rate 15 Blood Pressure 212/76 H 212/76 H Blood Pressure Mean 121 121 Pulse Ox 96 91 Oxygen Delivery Method Room Air Room Air 08/06/22 06:00 Temperature 97.2 F L Temperature Source Temporal Pulse Rate 74 Respiratory Rate 18 Blood Pressure 162/75 H Blood Pressure Mean 104 Pulse Ox 97 Oxygen Delivery Method Room Air Positive well nourished and well developed; Negative for obese, cachectic, contractures or unkempt General Appearance ED: well developed and NAD; Negative for unkempt, cachectic, contractures or pallor Nutritional Appearance: Negative for cachectic or obese HEENT Reports moist mucous membranes normocephalic and atraumatic; Negative for trauma or tenderness Eyes PERRL and EOMs intact bilaterally General Eye ED: Negative for pale conjunctiva, scleral icterus or other Neck no lymphadenopathy, supple and no JVD General: Negative for tenderness Carotids: Negative for other Resp normal respiratory effort and clear to auscultation bilaterally Effort and Inspection: Negative for respiratory distress Auscultation: Negative for rales, rhonchi or wheezes Cardio regular rate, regular rhythm, S1 normal heart sound, S2 normal heart sound and no murmurs Rate: Negative for bradycardia or tachycardic Rhythm: Negative for abnormal rhythm GI non-distended and no masses; Negative for non-tender Inspection: Negative for abdominal distention Auscultation: normoactive bowel sounds Palpation: soft and tender; Negative for guarding, rigid, hepatomegaly, splenomegaly, hernia, mass, pulsatile mass or rebound tenderness present Back/Spine no CVA tenderness General Back: Negative for CVA tenderness Cervical Spine: Negative for cervical spine tenderness Thoracic Spine / Upper Back: Negative for thoracic spinal tenderness Lumbar Spine / Lower Back: Negative for lumbar spinal tenderness Coccyx: Negative for other Extremity full ROM General Extremety ED: Negative for edema or tenderness General Extremity: Negative for edema Neuro CN's II-XII intact bilaterally and moves all extremities Sensorium / Orientation: alert, oriented to person, oriented to place and oriented to time; Negative for orientation impaired, confused, lethargic or stuporous Motor Exam: strength 5/5 throughout Psych mental status grossly normal and thought process normal Appearance: Negative for unkempt Attitude: No agitated Mood & Affect: Negative for depressed, anxious or tearful Skin no wounds General Skin Exam: Negative for jaundice or pallor Lesions: no lesions Trauma: Negative for abrasion Nails: Negative for discolored MDM MDM MDM Narrative Medical decision making narrative: She [id number] with abdominal pain is reproducible. Differential would include bowel obstruction even though she is not distended at this time, adhesions, pancreatitis, gallbladder disease, appendicitis, constipation or UTI. Mesenteric ischemia is a possibility but clinically does not seem like that initially. CAT scan and labs are pending. She will be treated with IV fluids, IV morphine for pain and Zofran to prevent nausea from the morphine. Patient was taken down to CAT scan she needed additional dose of morphine beforeshe get the CAT scan obtained. She was given 4 more milligrams of morphine IV. Repeat exam patient is resting more comfortably now at 5:35 AM. We discussed all test results. She has been given several doses of morphine and Zofran. I have general surgery on page for admission. I did speak to general surgery on-call. He requested an NG be placed. NG was placed by nursing staff. On the single view KUB good position in the stomach. Lab Data Attestation: I reviewed the patient's lab results. Lab results narrative: CBC shows a normal white count of 5.9. H&H 12.7 and 38. Platelets of 166. Electrolytes show potassium of 3.4. Gap of 4. BUN 29 creatinine 1.15. Liver enzymes are unremarkable. Normal amylase at 100. Normal lipase of 201. Glucose is 125. CT abdomen pelvis with IV contrast shows distal small bowel obstruction with a transition point in the upper pelvis. No perforation. This was read by the radiologist and reviewed by me. The test results were discussed with the patient. Labs: Laboratory Results - last 24 hr 08/06/22 08/06/22 03:37 03:37 WBC 5.9 RBC 4.12 L Hgb 12.7 Hct 38.3 MCV 93.0 MCH 30.8 MCHC 33.2 RDW Std Deviation 43.6 RDW Coeff of Rojelio 12.8 Plt Count 166 MPV 10.2 Immature Gran % (Auto) 0.200 Neut % (Auto) 56.9 Lymph % (Auto) 30.5 Gregg % (Auto) 9.4 Eos % (Auto) 2.5 Baso % (Auto) 0.5 Absolute Neuts (auto) 3.4 Absolute Lymphs (auto) 1.81 Nucleated RBC % 0 Sodium 140 Potassium 3.4 L Chloride 106 Carbon Dioxide 30.0 Anion Gap 4 L BUN 29 H Creatinine 1.15 H Estim Creat Clear Calc 32.23 Est GFR (MDRD) Af Amer 60 Est GFR (MDRD) Non-Af 49 L BUN/Creatinine Ratio 25.2 H Glucose 125 H Calcium 9.8 Total Bilirubin 0.60 AST 18 ALT 24 Alkaline Phosphatase 81 Total Protein 7.2 Albumin 3.6 Globulin 3.6 Albumin/Globulin Ratio 1.0 Amylase 100 Lipase 201 Radiography Diagnostic Testing: Clinical Impression(s) from Imaging Studies Abdomen/Pelvis CT 08/06/22 03:50 IMPRESSION: 1. Early high-grade distal mechanical small bowel obstruction with secondary mesenteric edema and small volume ascites. Recommend surgical consultation. Obstruction possibly secondary to focal adhesion or stricture. 2. Small amount of high attenuation fluid within distal gastric lumen and proximal duodenum, presumed small amount of ingested radiographic contrast or antacid medication. Follow-up as clinically warranted if concern for upper GI hemorrhage. 3. Other nonurgent findings within body of report. Electronically Signed: Mateo Greenfield MD at 5:25 EST , ADDENDUM: 08/06/22 0536 IMPRESSION: 1. Early high-grade distal mechanical small bowel obstruction with secondary mesenteric edema and small volume ascites. Recommend surgical consultation. Obstruction possibly secondary to focal adhesion or stricture. 2. Small amount of high attenuation fluid within distal gastric lumen and proximal duodenum, presumed small amount of ingested radiographic contrast or antacid medication. Follow-up as clinically warranted if concern for upper GI hemorrhage. 3. Other nonurgent findings within body of report. N.B. : The above Results were Read Back by Mateo Greenfield MD to Eloy Dent MD, and understanding confirmed on 08/06/2022 05:29:05 (ET). Electronically Signed: Mateo Greenfield MD at 5:25 EST , KUB single view of the abdomen for placement of the NG shows proper placement ofthe NG tube into the stomach. Otherwise no acute processes. Interpreted by myself. Discharge Plan Dx/Rx/DC Orders Clinical Impression: Abdominal pain, Complete small bowel obstruction Disposition Disposition: Acute Care [facility] What to do if you have Problems For any increased pain, shortness of breath, bleeding, nausea or vomiting, chestpain, or any unexpected problems, contact your Primary Care Provider. Call [facility] ([phone]) or report to the closest Emergency Room. Call 911 if necessary. 08/06/22 0607 <Electronically signed by Ezequiel Dent MD> Cosigner Signature (if applicable): CC: Dr. Carmen Johnson MD ~ Signed [facility] Work Phone: 1(205) 823-330102-25-[address] Dent [facility] August 06, 2022 6:07am Note Date/Time August 06, 2022 3:57am [facility] Medical Records Department [address] [place] [address] Emergency Department Summary 08/06/22 MR#: [id number] Acct: [id number] Name: ANGELICA TORIBIO Rep #:[id number] : 1950 72 From: Ezequiel Dent MD PCP: Dr. Carmen Johnson MD Status:AD M IN Location: [place] [address] HPI HPI - GI History of Present Illness Chief Complaint: Abd Pain Informant: patient Abdominal Pain/Flank Pain Onset: Today Context: Sudden Onset Timing: Intermittent Quality: Sharp and Stabbing Location: Diffuse Current Severity: Mild Maximum Severity: Moderate Worsened by: Nothing Relieved by: Nothing Nausea/Vomiting/Emesis GI Symptom: Negative for Nausea or Vomiting Diarrhea/Melena/Hematochezia GI Symptom: Negative for Diarrhea, Melena or Hematochezia Associated Symptoms Associated Symptoms: Negative for Dysuria or Frequency Narrative Narrative: 72-year-old female history of prior hysterectomy. No other abdominal surgeries. States about 3 hours ago she had sudden onset of intermittent sharp stabbing periumbilical and diffuse abdominal pain. No prior history. No back or chest pain. No nausea, vomiting or diarrhea. Has had normal bowel movement in the last 2 days. Denies any dysuria. No fever. No melena. No significant weight loss. No falls or abdominal trauma. No prior similar pain. Nothing particularmakes it better or worse. She was brought in by squad. She was treated with pain medication prior to arrival. Prior similar symptoms: No Recent Illness/Hospitalization: No PFSH PFSH Medical History Cardiac murmur Carotid stenosis, bilateral Diabetes GERD (gastroesophageal reflux disease) HTN (hypertension) Osteoarthritis Vertigo Home Medications cholecalciferol (vitamin D3) 1,250 mcg (50,000 unit) capsule 1 tab PO QWEEK 03/03/19 [History Last Taken Unknown] glimepiride 4 mg tablet 1 tab PO DAILY 03/03/19 [History Last Taken Unknown] indapamide 1.25 mg tablet 1.25 mg PO DAILY 03/03/19 [History Last Taken Unknown] metoprolol tartrate 50 mg tablet 50 mg PO BID 03/03/19 [History Last Taken Unknown] naproxen 500 mg tablet 500 mg PO BID PRN Pain 03/03/19 [History Last Taken Unknown] ondansetron 4 mg disintegrating tablet 4 mg PO Q8H PRN PRN Nausea #6 tabs 03/03/19 [Rx Last Taken Unknown] tramadol 50 mg tablet 50 mg PO DAILY 03/03/19 [History Last Taken Unknown] Carbamide Peroxide [Ear Drops] 15 ml OT BID #150 mL 03/06/19 [Rx Last Taken Unknown] amlodipine 10 mg tablet 10 mg PO DAILY #60 tabs 03/06/19 [Rx Last Taken Unknown] meclizine 25 mg tablet 25 mg PO Q6H 03/06/19 [Rx Last Taken Unknown] Allergy/AdvReac Type Severity Reaction Status Date / Time furosemide [From Lasix] Allergy Hives Verified 08/06/22 03:36 Sulfa (Sulfonamide Allergy Hives Verified 08/06/22 03:36 Antibiotics) Family History (Updated 08/06/22 @ 06:[address] Susan Isidro MD) Mother Heart disease Hypertension Diabetes Father Heart disease Hypertension Diabetes Surgical History History of dilation and curettage History of partial hysterectomy Social History household members: none Smoking Status: Never smoker alcohol intake: never substance use type: does not use ROS ROS ED ROS Narrative Abdominal pain. Review of Systems ROS Unobtainable: Denies due to encephalopathy Constitutional Constitutional ED: Denies chills or fever(s) ENT ENT ED: Denies ear pain Cardiovascular Cardiovascular: Denies chest pain or palpitations Respiratory/Chest Respiratory/Chest: Denies cough or dyspnea Gastrointestinal Gastrointestinal: Reports abdominal pain; Denies constipation, diarrhea, melena,nausea or vomiting Genitourinary Genitourinary ED: Denies dysuria or hematuria Musculoskeletal Musculoskeletal: Denies arthralgias Integumentary Denies abscess Neurologic Neurologic: Denies headache(s) Psychiatric Psychiatric: Denies anxiety Endocrine Endocrinology: Denies polydipsia Hematologic/Lymphatic Hematologic/Lymphatic: Denies easy bleeding Allergic/Immunologic Allergic/Immunologic ED: Denies mouth swelling or tongue swelling EXAM Physical Exam Narrative Exam Narrative: 72 female vital signs are stable afebrile. Initial blood pressure is elevated 212/76. She does not look septic or toxic. At time she is pain-free at no timeshe is doubled over with abdominal pain. H EENT exam unremarkable. Neck nontender. Lungs clear to auscultation bilaterally. Heart regular rhythm rate about 75 no murmur. Chest wall nontender. Abdomen soft. Diffusely tender. Nohernia or mass. No signs of obstruction. No localizing tenderness to the rightupper or lower quadrant diffusely tender. No hernia or pulsatile mass. No signs of abdominal trauma. Moving all 4 extremities. Nontender no edema. Backnontender. Neurologically she is awake and alert moving all 4 extremities. Answering questions and following commands. Const Vital Signs: 08/06/22 03:30 08/06/22 03:35 08/06/22 05:27 Temperature 97.6 F L Temperature Source Oral Pulse Rate 76 Respiratory Rate 15 Blood Pressure 212/76 H 212/76 H Blood Pressure Mean 121 121 Pulse Ox 96 91 Oxygen Delivery Method Room Air Room Air 08/06/22 06:00 Temperature 97.2 F L Temperature Source Temporal Pulse Rate 74 Respiratory Rate 18 Blood Pressure 162/75 H Blood Pressure Mean 104 Pulse Ox 97 Oxygen Delivery Method Room Air Positive well nourished and well developed; Negative for obese, cachectic, contractures or unkempt General Appearance ED: well developed and NAD; Negative for unkempt, cachectic, contractures or pallor Nutritional Appearance: Negative for cachectic or obese HEENT Reports moist mucous membranes normocephalic and atraumatic; Negative for trauma or tenderness Eyes PERRL and EOMs intact bilaterally General Eye ED: Negative for pale conjunctiva, scleral icterus or other Neck no lymphadenopathy, supple and no JVD General: Negative for tenderness Carotids: Negative for other Resp normal respiratory effort and clear to auscultation bilaterally Effort and Inspection: Negative for respiratory distress Auscultation: Negative for rales, rhonchi or wheezes Cardio regular rate, regular rhythm, S1 normal heart sound, S2 normal heart sound and no murmurs Rate: Negative for bradycardia or tachycardic Rhythm: Negative for abnormal rhythm GI non-distended and no masses; Negative for non-tender Inspection: Negative for abdominal distention Auscultation: normoactive bowel sounds Palpation: soft and tender; Negative for guarding, rigid, hepatomegaly, splenomegaly, hernia, mass, pulsatile mass or rebound tenderness present Back/Spine no CVA tenderness General Back: Negative for CVA tenderness Cervical Spine: Negative for cervical spine tenderness Thoracic Spine / Upper Back: Negative for thoracic spinal tenderness Lumbar Spine / Lower Back: Negative for lumbar spinal tenderness Coccyx: Negative for other Extremity full ROM General Extremety ED: Negative for edema or tenderness General Extremity: Negative for edema Neuro CN's II-XII intact bilaterally and moves all extremities Sensorium / Orientation: alert, oriented to person, oriented to place and oriented to time; Negative for orientation impaired, confused, lethargic or stuporous Motor Exam: strength 5/5 throughout Psych mental status grossly normal and thought process normal Appearance: Negative for unkempt Attitude: No agitated Mood & Affect: Negative for depressed, anxious or tearful Skin no wounds General Skin Exam: Negative for jaundice or pallor Lesions: no lesions Trauma: Negative for abrasion Nails: Negative for discolored MDM MDM MDM Narrative Medical decision making narrative: She [id number] with abdominal pain is reproducible. Differential would include bowel obstruction even though she is not distended at this time, adhesions, pancreatitis, gallbladder disease, appendicitis, constipation or UTI. Mesenteric ischemia is a possibility but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 created using NoteWriter. Subjective Angelica Toribio is a 72 year old female. Patient presents with: Follow Up SUBJECTIVE: Angelica Toribio is a 72 year old year old lady here today for follow up appointment for review of medical conditions. Noted feet pain and foot cramping to ankles. Drank water as was instructed in the past and took Tylenol. Exercises to help with calf muscle also helped. Asked about oils for cooking. Weight down. Has been cutting back Drinking water. PAST MEDICAL HISTORY Diagnosis Date Anxiety state, unspecified Displacement of lumbar intervertebral disc without myelopathy DM type 2 (diabetes mellitus, type 2) ([facility]) Edema Other malaise and fatigue Unspecified essential hypertension Current Outpatient Medications Medication Sig Cholecalciferol, Vitamin D3, 25 mcg (1,000 unit) cap Take 1 capsule by mouth once daily. glimepiride (AMARYL) 4 mg tablet Take 1 tablet by mouth daily with breakfast. indapamide (LOZOL) 1.25 mg tablet Take 1 tablet by mouth once daily. metoprolol tartrate, short acting, (LOPRESSOR) 50 mg tablet Take 1 tablet by mouth twice daily. loratadine (CLARITIN) 10 mg tablet Take 1 tablet by mouth once daily. As directed for allergies betamethasone dipropionate, augmented (DIPROLENE) 0.05 % cream APPLY TO THE HANDS TWICE A DAY FOR 14 DAYS BIOTIN/KERATIN (BIOTIN PLUS KERATIN ORAL) Take by mouth. Blood Pressure Monitor 1 Each once daily. (Patient not taking: No sig reported) Lancets lancets Test blood sugar(s) once daily as directed. Dx: E11.22. Insulin: no (Patient not taking: No sig reported) blood sugar diagnostic (BLOOD GLUCOSE TEST) test strip Test blood sugar(s) once daily as directed. Dx: E11.22. Insulin: no (Patient not taking: No sig reported) No current facility-administered medications for this visit. Review of Systems Objective BP 138/82 Pulse 60 Wt 66.2 kg (146 lb) SpO2 96% BMI 27.14 kg/m Last 5 Encounter Wt Readings: Date: Wt: 02/15/2022 66.2 kg (146 lb) 10/12/2021 69.4 kg (153 lb) 06/21/2021 69.9 kg (154 lb) 02/16/2021 70.3 kg (155 lb) 10/13/2020 73.3 kg (161 lb 9.6 oz) No waist measurement recorded Estimated body mass index is 27.14 kg/m as calculated from the following: Height as of 02/11/16: 156.2 cm (5' 1.5). Weight as of this encounter: 66.2 kg (146 lb). Last 5 Encounter BP Readings: Date: BP: 02/15/2022 138/82 10/12/2021 124/82 06/21/2021 128/82 02/16/2021 130/70 10/13/2020 138/68 Physical Exam Constitutional: Appearance: Normal appearance. HENT: Head: Normocephalic. Eyes: Conjunctiva/sclera: Conjunctivae normal. Pulmonary: Effort: Pulmonary effort is normal. Neurological: Mental Status: She is alert. Psychiatric: Mood and Affect: Mood normal. Behavior: Behavior normal. Thought Content: Thought content normal. Judgment: Judgment normal. Component Latest Ref Rng & Units 10/08/2021 02/10/2022 Protein, Total 6.3 - 8.0 g/dL 7.6 7.1 Albumin 3.9 - 4.9 g/dL 4.3 4.0 Calcium 8.5 - 10.2 mg/dL 9.5 10.0 Bilirubin, Total 0.2 - 1.3 mg/dL 0.8 0.5 Alkaline Phosphatase 34 - 123 U/L 87 80 AST 13 - 35 U/L 16 14 ALT 7 - 38 U/L 12 11 Glucose 74 - 99 mg/dL 113 (H) 80 BUN 7 - 21 mg/dL 29 (H) 21 Creatinine 0.58 - 0.96 mg/dL 1.18 (H) 1.00 (H) Sodium 136 - 144 mmol/L 139 147 (H) Potassium 3.7 - 5.1 mmol/L 3.7 3.9 Chloride 97 - 105 mmol/L 100 109 (H) CO2 22 - 30 mmol/L 27 23 Anion Gap 9 - 18 mmol/L 12 15 eGFR >=60 mL/min/1.73m 50 (L) 60 WBC 3.70 - 11.00 k/uL 6.35 5.37 RBC 3.90 - 5.20 m/uL 4.33 4.17 Hemoglobin 11.5 - 15.5 g/dL 13.1 12.6 Hematocrit 36.0 - 46.0 % 39.5 37.9 MCV 80.0 - 100.0 fL 91.2 90.9 MCH 26.0 - 34.0 pg 30.3 30.2 MCHC 30.5 - 36.0 g/dL 33.2 33.2 RDW-CV 11.5 - 15.0 % 13.2 13.2 Platelet Count 150 - 400 k/uL 207 193 MPV 9.0 - 12.7 fL 9.7 10.2 Absolute nRBC <0.01 k/uL <0.01 <0.01 Cholesterol, Total <200 mg/dL 245 (H) 220 (H) Triglyceride <150 mg/dL 176 (H) 116 HDL Cholesterol >39 mg/dL 40 41 Non HDL Cholesterol <130 mg/dL 205 (H) 179 (H) Fasting Time hrs 12 10 VLDL Cholesterol <30 mg/dL 35 (H) 23 TC:HDL Ratio <5.10 6.13 (H) 5.37 (H) LDL Cholesterol <100 mg/dL 170 (H) 156 (H) LDL:HDL Ratio <2.54 4.25 (H) 3.80 (H) Creatinine, Ur Random (UCRR) 20.0 - 300.0 mg/dL 104.3 97.9 Albumin, Urine Random mg/L 94.4 180.1 Albumin/Creat Ratio <30 mg/g 91 (H) 184 (H) Hemoglobin A1C 4.3 - 5.6 % 6.6 (H) 6.1 (H) Estimated Average Glucose mg/dL 143 128 Vitamin D 25 Hydroxy 31.0 - 80.0 ng/mL 40.0 39.9 Assessment and Plan ASSESSMENT/PLAN: 1. Type 2 diabetes mellitus with chronic kidney disease, without long-term current use of insulin, unspecified CKD stage (HCC) - ICD9: 250.40, 585.9, ICD10: E11.22 (primary diagnosis) Controlled. - Continue current medications - Needs new meter and test strips. - HGB A1C - COMP METABOLIC PANEL - CBC - LIPID PANEL BASIC - BLOOD GLUCOSE TEST STRIPS - HOME BLOOD GLUCOSE MONITOR 2. Vitamin D deficiency - ICD9: 268.9, ICD10: E55.9 Continue present management. - VITAMIN D 25 HYDROXY 3. Essential hypertension - ICD9: 401.9, ICD10: I10 - good control - Continue current medication(s) - Recommended regular aerobic exercise. - Recommend home blood pressure monitoring, to bring results in on next visit - Goal of BP <130/80 - COMP METABOLIC PANEL - CBC 4. Mixed hyperlipidemia - ICD9: 272.2, ICD10: E78.2 - suboptimal control; recommended statin but has declined - Encouraged following a low fat, low cholesterol diet. - Encouraged following a low carbohydrate, healthy oil intake diet. - LIPID PANEL BASIC 5. Cramping of feet - ICD9: 729.82, ICD10: R25.2 Make sure to stay hydrated and do exercise that were previously recommended--effective. 6. Exudative age-related macular degeneration of right eye, unspecified stage (HCC) - ICD9: 362.52,ICD10: H35.3210 Continue follow up with Dr. Vincent for eye injections every 4 weeks. Carmen Johnson MD documented in this encounterL[facility] Hospital08-04-2022 Miscellaneous Notes* Telephone Encounter - Evelin Holly Pss - 01/13/2022 5:03 PM EDT Pharmacy verified in [facility] Patient has been identified by name and date of : Yes Patient aware RX will be sent to pharmacy. No need to notify patient. Patient phones for refill(s): Pending Prescriptions Disp Refills CHOLECALCIFEROL (VITAMIN D3) 25 MCG (1,000 UNIT) CAPSULE 90 capsule 3 Sig: Take 1 capsule by mouth once daily. RANDALL: No Date of last office visit : 10/12/2021 Date of next office visit : 02/15/2022 Last 2 Encounter Wt Readings: Date: Wt: 10/12/2021 69.4 kg (153 lb) 06/21/2021 69.9 kg (154 lb) Please advise. Evelin Holly Pss documented in this encounterL[facility]05-03-2022 History of Present illness Narrative* Carmen Johnson MD - 10/12/2021 10:36 AM EDT This note was created using NoteWriter. Subjective Angelica Toribio is a 71 year old female. Patient presents with: Follow Up SUBJECTIVE: Angelica Toribio is a 71 year old year old lady here today for 4 month follow up appointment forreview of medical conditions. Still follows with Dr. Ashley. Psoriasis doing okay with diprolene. Will have a screening exam and treat the probable SK on left arm. States taking care of own nails instead of going to mobility specialist. Dr. Mobley for Ophthalmology 08/30. Told that has bleeding in both eyes. Saw next day Dr. Tyron Vincent ([facility]) in [place]. Getting shots in eyes. Left not as bad as right. Cannot drive at night; okay during the day. Going every 5 weeks. Plan for 5 shots. Not sure if will need laser treatments. Walking more--goes to [employer]. 5 rounds. Dances half hour to music at home. Does stretching exercises. Discussed that December will be when due for second COVID Booster. Has allergy symptoms now. Gets irritation in throat. Noted sometimes after eating. Wonders if milk or cheese contributes to cough. Throat not sore. Food not going down the wrong tube. Had prior allergy testing. Pollen allergies. Brother had esophageal cancer and had to have resected. PAST MEDICAL HISTORY Diagnosis Date Anxiety state, unspecified Displacement of lumbar intervertebral disc without myelopathy DM type 2 (diabetes mellitus, type 2) (HCC) Edema Other malaise and fatigue Unspecified essential hypertension Current Outpatient Medications Medication Sig indapamide (LOZOL) 1.25 mg tablet Take 1 tablet by mouth once daily. glimepiride (AMARYL) 4 mg tablet Take 1 tablet by mouth daily with breakfast. metoprolol tartrate, short acting, (LOPRESSOR) 50 mg tablet Take 1 tablet by mouth twice daily. Cholecalciferol, Vitamin D3, 25 mcg (1,000 unit) cap Take 1 capsule by mouth once daily. betamethasone dipropionate, augmented (DIPROLENE) 0.05 % cream APPLY TO THE HANDS TWICE A DAY FOR 14 DAYS BIOTIN/KERATIN (BIOTIN PLUS KERATIN ORAL) Take by mouth. Blood Pressure Monitor 1 Each once daily. (Patient not taking: Reported on 10/13/2020 ) Lancets lancets Test blood sugar(s) once daily as directed. Dx: E11.22. Insulin: no (Patient not taking: Reported on 10/13/2020 ) blood sugar diagnostic (BLOOD GLUCOSE TEST) test strip Test blood sugar(s) once daily as directed. Dx: E11.22. Insulin: no (Patient not taking: Reported on 10/13/2020 ) ketoconazole (NIZORAL) 2 % cream Apply 1 application to affected area once daily. May increase to twice daily if needed. (Patient not taking: Reported on 10/12/2021 ) traMADol (ULTRAM) 50 mg tablet Take 1 tablet by mouth twice daily for 60 days. May fill today, 2018. (Patient not taking: Reported on 10/12/2021) meclizine (ANTIVERT) 25 mg tab Take 1 tablet by mouth three times daily as needed (vertigo). (Patient not taking: Reported on 10/12/2021 ) No current facility-administered medications for this visit. Review of Systems Objective BP 124/82 Pulse 76 Wt 69.4 kg (153 lb) BMI 28.44 kg/m Last 5 Encounter Wt Readings: Date: Wt: 10/12/2021 69.4 kg (153 lb) 06/21/2021 69.9 kg (154 lb) 02/16/2021 70.3 kg (155 lb) 10/13/2020 73.3 kg (161 lb 9.6 oz) 06/15/2020 73 kg (161 lb) No waist measurement recorded Estimated body mass index is 28.44 kg/m as calculated from the following: Height as of 02/11/16: 156.2 cm (5' 1.5). Weight as of this encounter: 69.4 kg (153 lb). Last 5 Encounter BP Readings: Date: BP: 10/12/2021 124/82 06/21/2021 128/82 02/16/2021 130/70 10/13/2020 138/68 06/15/2020 138/82 Physical Exam Constitutional: Appearance: Normal appearance. HENT: Head: Normocephalic. Eyes: Conjunctiva/sclera: Conjunctivae normal. Cardiovascular: Rate and Rhythm: Normal rate and regular rhythm. Heart sounds: Normal heart sounds. Pulmonary: Effort: Pulmonary effort is normal. Breath sounds: Normal breath sounds. Skin: General: Skin is warm and dry. Neurological: General: No focal deficit present. Mental Status: She is alert and oriented to person, place, and time. Psychiatric: Attention and Perception: Attention and perception normal. Mood and Affect: Mood and affect normal. Speech: Speech normal. Behavior: Behavior normal. Thought Content: Thought content normal. Cognition and Memory: Cognition normal. Judgment: Judgment normal. Noted SK type lesion on left forearm. Component Latest Ref Rng & Units 02/01/2021 06/14/2021 10/08/2021 Protein, Total 6.3 - 8.0 g/dL 6.7 7.3 7.6 Albumin 3.9 - 4.9 g/dL 4.0 4.4 4.3 Calcium 8.5 - 10.2 mg/dL 9.3 10.0 9.5 Bilirubin, Total 0.2 - 1.3 mg/dL 0.6 0.7 0.8 Alkaline Phosphatase 34 - 123 U/L 90 98 87 AST 13 - 35 U/L 14 12 (L) 16 Glucose 74 - 99 mg/dL 154 (H) 181 (H) 113 (H) BUN 7 - 21 mg/dL 30 (H) 29 (H) 29 (H) Creatinine 0.58 - 0.96 mg/dL 1.22 (H) 1.12 (H) 1.18 (H) Sodium 136 - 144 mmol/L 136 137 139 Potassium 3.7 - 5.1 mmol/L 3.6 (L) 3.5 (L) 3.7 Chloride 97 - 105 mmol/L 104 99 100 CO2 22 - 30 mmol/L 21 (L) 23 27 Anion Gap 9 - 18 mmol/L 11 15 12 ALT 7 - 38 U/L 11 10 12 eGFR- 53 58 eGFR-All Other Races . 44 48 eGFR >=60 mL/min/1.73m 50 (L) WBC 3.70 - 11.00 k/uL 6.53 6.75 6.35 RBC 3.90 - 5.20 m/uL 4.00 4.65 4.33 Hemoglobin 11.5 - 15.5 g/dL 11.7 13.9 13.1 Hematocrit 36.0 - 46.0 % 35.1 (L) 41.7 39.5 MCV 80.0 - 100.0 fL 87.8 89.7 91.2 MCH 26.0 - 34.0 pg 29.3 29.9 30.3 MCHC 30.5 - 36.0 g/dL 33.3 33.3 33.2 RDW-CV 11.5 - 15.0 % 14.1 13.3 13.2 Platelet Count 150 - 400 k/uL 198 203 207 MPV 9.0 - 12.7 fL 9.9 9.8 9.7 Absolute nRBC <0.01 k/uL <0.01 <0.01 <0.01 Cholesterol, Total <200 mg/dL 232 (H) 273 (H) 245 (H) Triglyceride <150 mg/dL 145 165 (H) 176 (H) HDL Cholesterol >39 mg/dL 38 (L) 43 40 LDL Cholesterol <100 mg/dL 165 (H) 197 (H) 170 (H) Non HDL Cholesterol <130 mg/dL 194 (H) 230 (H) 205 (H) Fasting Time hrs 12 10 12 VLDL Cholesterol <30 mg/dL 29 33 (H) 35 (H) TC:HDL Ratio <5.10 6.11 (H) 6.35 (H) 6.13 (H) LDL:HDL Ratio <2.54 4.34 (H) 4.58 (H) 4.25 (H) Creatinine, Ur Random (UCRR) 20.0 - 300.0 mg/dL 182.7 171.4 104.3 Albumin, Urine Random mg/L 192.8 254.1 94.4 Albumin/Creat Ratio <30 mg/g 106 (H) 148 (H) 91 (H) Hemoglobin A1C 4.3 - 5.6 % 6.8 (H) 7.1 (H) 6.6 (H) Estimated Average Glucose mg/dL 148 157 143 Vitamin D 25 Hydroxy 31.0 - 80.0 ng/mL 44.3 43.4 40.0 Assessment and Plan Encounter Diagnosis ICD-10-CM 1. Type 2 diabetes mellitus 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, unspecified whether detention insulin use (HCC) E11.9 glimepiride (AMARYL) 4 mg tablet COMP METABOLIC PANEL HGB A1C 2. Primary Hypertension I10 indapamide (LOZOL) 1.25 mg tablet metoprolol tartrate, short acting, (LOPRESSOR) 50 mg tablet COMP METABOLIC PANEL CBC 3. 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 Davis 4. Vitamin D deficiency E55.9 VITAMIN D 25 HYDROXY 5. Type 2 diabetes mellitus with stage 3a chronic kidney disease, without long- term current use of insulin (HCC) E11.22 N18.31 6. Mixed hyperlipidemia E78.2 LIPID PANEL BASIC 7. Microalbuminuria due to type 2 diabetes mellitus (HCC) E11.29 COMP METABOLIC PANEL R80.9 ALBUMIN/CREAT RATIO RND UR ASSESSMENT/PLAN: 1. Type 2 diabetes mellitus 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, unspecified whether detention insulin use ([facility]) -ICD9: 250.00, ICD10: E11.9 (primary diagnosis) Controlled. - Continue current medications - Encouraged regular aerobic exercise and weight loss - GLIMEPIRIDE 4 MG TABLET - COMP METABOLIC PANEL - HGB A1C 2. Primary Hypertension - ICD9: 401.9, ICD10: I10 - good control - Continue current medication(s) - Recommended regular aerobic exercise. - Goal of BP <130/80 - INDAPAMIDE 1.25 MG TABLET - METOPROLOL TARTRATE 50 MG TABLET - COMP METABOLIC PANEL - CBC 3. 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 4. Vitamin D deficiency - ICD9: 268.9, ICD10: E55.9 - VITAMIN D 25 HYDROXY 5. Type 2 diabetes mellitus with stage 3a chronic kidney disease, without long- term current use of insulin (HCC) - ICD9: 250.40, 585.3, ICD10: E11.22, N18.31 Controlled. - Continue current medications 6. Mixed hyperlipidemia - ICD9: 272.2, ICD10: E78.2 - suboptimal control - Encouraged following a low fat, low cholesterol diet. - Encouraged following a low carbohydrate, healthy oil intake diet. - LIPID PANEL BASIC 7. Microalbuminuria due to type 2 diabetes mellitus (HCC) - ICD9: 250.40, 791.0, ICD10: E11.29, R80.9 Controlled. - COMP METABOLIC PANEL - ALBUMIN/CREAT RATIO RND UR Carmen Jhonson MD documented in this encounterConnor [place] [id number] History of Past illness Narrative* Problem Noted Date Resolved Date Uncontrolled type 2 diabetes mellitus 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, without long-term current use of insulin 07/14/2016 10/05/2018 Cellulitis of buttock 12/07/2012 03/09/2020 Chest pain, unspecified 04/22/2005 08/20/19 14 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 without mention of 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, not stated as uncontrolled 01/03/2012 documented as of this encounter (statuses as of 12/09/2021) [facility] of [facility] illness Narrative* Problem Noted Date Resolved Date Uncontrolled type 2 diabetes mellitus 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, without long-term current use of insulin 07/14/2016 10/05/2018 Cellulitis of buttock 12/07/2012 03/09/2020 Chest pain, unspecified 04/22/2005 08/20/19 14 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 without mention of 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, not stated as uncontrolled 01/03/2012 documented as of this encounter (statuses as of 12/13/2021) [facility] of Past illness Narrative* Problem Noted Date Resolved Date Uncontrolled type 2 diabetes mellitus 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, without long-term current use of insulin 07/14/2016 10/05/2018 Cellulitis of buttock 12/07/2012 03/09/2020 Chest pain, unspecified 04/22/2005 08/20/19 14 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 without mention of 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, not stated as uncontrolled 01/03/2012 documented as of this encounter (statuses as of 01/14/2022) [facility] of [facility] illness Narrative* Problem Noted Date Resolved Date Uncontrolled type 2 diabetes mellitus 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, without long-term current use of insulin 07/14/2016 10/05/2018 Cellulitis of buttock 12/07/2012 03/09/2020 Chest pain, unspecified 04/22/2005 08/20/19 14 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 without mention of 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, not stated as uncontrolled 01/03/2012 documented as of this encounter (statuses as of 02/16/2022) [facility] History of Past illness Narrative* Problem Noted Date Resolved Date Uncontrolled type 2 diabetes mellitus 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, without long-term current use of insulin 07/14/2016 10/05/2018 Cellulitis of buttock 12/07/2012 03/09/2020 Chest pain, unspecified 04/22/2005 08/20/19 14 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 without mention of 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, not stated as uncontrolled 01/03/2012 documented as of this encounter (statuses as of 03/18/2022) [facility] History of Past illness Narrative* Problem Noted Date Resolved Date Uncontrolled type 2 diabetes mellitus 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, without long-term current use of insulin 07/14/2016 10/05/2018 Cellulitis of buttock 12/07/2012 03/09/2020 Chest pain, unspecified 04/22/2005 08/20/19 14 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 without mention of 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, not stated as uncontrolled 01/03/2012 documented as of this encounter (statuses as of 03/28/2022) [facility] History of Past illness Narrative* Problem Noted Date Resolved Date Uncontrolled type 2 diabetes mellitus 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, without long-term current use of insulin 07/14/2016 10/05/2018 Cellulitis of buttock 12/07/2012 03/09/2020 Chest pain, unspecified 04/22/2005 08/20/19 14 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 without mention of 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, not stated as uncontrolled 01/03/2012 documented as of this encounter (statuses as of 05/17/2022) [facility] History of Past illness Narrative* Problem Noted Date Resolved Date Uncontrolled type 2 diabetes mellitus 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, without long-term current use of insulin 07/14/2016 10/05/2018 Cellulitis of buttock 12/07/2012 03/09/2020 Chest pain, unspecified 04/22/2005 08/20/19 14 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 without mention of 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, not stated as uncontrolled 01/03/2012 documented as of this encounter (statuses as of 06/16/2022) [facility] History of Past illness Narrative* Problem Noted Date Resolved Date Uncontrolled type 2 diabetes mellitus 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, without long-term current use of insulin 07/14/2016 10/05/2018 Cellulitis of buttock 12/07/2012 03/09/2020 Chest pain, unspecified 04/22/2005 08/20/19 14 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 without mention of 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, not stated as uncontrolled 01/03/2012 documented as of this encounter (statuses as of 07/03/2022) [facility] History of Past illness Narrative* Problem Noted Date Resolved Date Uncontrolled type 2 diabetes mellitus 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, without long-term current use of insulin 07/14/2016 10/05/2018 Cellulitis of buttock 12/07/2012 03/09/2020 Chest pain, unspecified 04/22/2005 08/20/19 14 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 without mention of 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, not stated as uncontrolled 01/03/2012 documented as of this encounter (statuses as of 07/06/2022) [facility] History of Past illness Narrative* Problem Noted Date Resolved Date Uncontrolled type 2 diabetes mellitus 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, without long-term current use of insulin 07/14/2016 10/05/2018 Cellulitis of buttock 12/07/2012 03/09/2020 Chest pain, unspecified 04/22/2005 08/20/19 14 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 without mention of 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, not stated as uncontrolled 01/03/2012 documented as of this encounter (statuses as of 07/06/2022) [facility] History of Past illness Narrative* Problem Noted Date Resolved Date Uncontrolled type 2 diabetes mellitus 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, without long-term current use of insulin 07/14/2016 10/05/2018 Cellulitis of buttock 12/07/2012 03/09/2020 Chest pain, unspecified 04/22/2005 08/20/19 14 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 without mention of 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, not stated as uncontrolled 01/03/2012 documented as of this encounter (statuses as of 07/07/2022) [facility] History of Past illness Narrative* Problem Noted Date Resolved Date Uncontrolled type 2 diabetes mellitus 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, without long-term current use of insulin 07/14/2016 10/05/2018 Cellulitis of buttock 12/07/2012 03/09/2020 Chest pain, unspecified 04/22/2005 08/20/19 14 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 without mention of 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, not stated as uncontrolled 01/03/2012 documented as of this encounter (statuses as of 09/19/2022) [facility] History of Past illness Narrative* Problem Noted Date Resolved Date Uncontrolled type 2 diabetes mellitus 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, without long-term current use of insulin 07/14/2016 10/05/2018 Cellulitis of buttock 12/07/2012 03/09/2020 Chest pain, unspecified 04/22/2005 08/20/19 14 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 without mention of 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, not stated as uncontrolled 01/03/2012 documented as of this encounter (statuses as of 09/23/2022) [facility] History of Past illness Narrative* Problem Noted Date Resolved Date Uncontrolled type 2 diabetes mellitus 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, without long-term current use of insulin 07/14/2016 10/05/2018 Cellulitis of buttock 12/07/2012 03/09/2020 Chest pain, unspecified 04/22/2005 08/20/19 14 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 without mention of 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, not stated as uncontrolled 01/03/2012 documented as of this encounter (statuses as of 10/25/2022) [facility] History of Past illness Narrative* Problem Noted Date Resolved Date Uncontrolled type 2 diabetes mellitus 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, without long-term current use of insulin 07/14/2016 10/05/2018 Cellulitis of buttock 12/07/2012 03/09/2020 Chest pain, unspecified 04/22/2005 08/20/19 14 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 without mention of 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, not stated as uncontrolled 01/03/2012 documented as of this encounter (statuses as of 11/08/2022) [facility] History of Past illness Narrative* Problem Noted Date Resolved Date Uncontrolled type 2 diabetes mellitus 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, without long-term current use of insulin 07/14/2016 10/05/2018 Cellulitis of buttock 12/07/2012 03/09/2020 Chest pain, unspecified 04/22/2005 08/20/19 14 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 without mention of 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, not stated as uncontrolled 01/03/2012 documented as of this encounter (statuses as of 11/14/2022) [facility] History of Past illness Narrative* Problem Noted Date Resolved Date Uncontrolled type 2 diabetes mellitus 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, without long-term current use of insulin 07/14/2016 10/05/2018 Cellulitis of buttock 12/07/2012 03/09/2020 Chest pain, unspecified 04/22/2005 08/20/19 14 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 without mention of 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, not stated as uncontrolled 01/03/2012 documented as of this encounter (statuses as of 12/02/2022) [facility] History of Past illness Narrative* Problem Noted Date Diagnosed Date Resolved Date Uncontrolled type 2 diabetes mellitus 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, without long-term current use of insulin 07/14/2016 10/05/2018 Cellulitis of buttock 12/07/20122019 Chest pain, unspecified 04/22/200508/10 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 without mention of 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, not stated as uncontrolled 01/03/2012 documented as of this encounter (statuses as of 01/25/2023) [facility] History of Past illness Narrative* Problem Noted Date Diagnosed Date Resolved Date Uncontrolled type 2 diabetes mellitus 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, without long-term current use of insulin 07/14/2016 10/05/2018 Cellulitis of buttock 12/07/20122019 Chest pain, unspecified 04/22/200508/10 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 without mention of 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, not stated as uncontrolled 01/03/2012 documented as of this encounter (statuses as of 09/26/2023) [facility] History of Past illness Narrative* Problem Noted Date Diagnosed Date Resolved Date Uncontrolled type 2 diabetes mellitus 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, without long-term current use of insulin 07/14/2016 10/05/2018 Cellulitis of buttock 12/07/20122019 Chest pain, unspecified 04/22/200508/10 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 August 06, 2022 6:12am Note Date/Time August 06, 2022 5:47am [facility] Medical Records Department [address] [place] [address] Consultation - Hospitalist 08/06/22 0547 MR#: [id number] Acct: [id number] Name: ANGELICA TORIBIO Rep #:[id number] : 1950 72 From: Susan Isidro MD PCP: Dr. Carmen Johnson MD Status:AD M IN Location: [place] [address] Assessment & Plan Assessment/Plan (1) Complete small bowel obstruction: PLAN: Plan The patient is a 72 y/o F w/ PMHx: Diabetes mellitus type II, HTN, HLD, GERD, Carotid stenosis BL who presents to the [facility] ED on 08/06/22 with history of onset of abdominal pain, intermittent, diffuse, sharp and stabbing in nature with no nausea or emesis associated starting approximately 3 hours prior to ED presentation reporting it initially in the periumbilical region and then more diffusely in the entire abdomen with nothing causing it to worsen or improve prompting eventual EMS call for transition for evaluation. #1. Abdominal pain, nausea, emesis w/ high-grade mechanical SBO: Patient will be admitted per general surgery to the floor the discretion but given hypertension recommend telemetry for usage of IV as needed regimen, maintain on IVFs, would expect to continue NGT to suction, strict I&Os, IV pain/anti-emeticsPRN, PPI IV, maintain NPO on bowel rest. ED noted general surgery intention to transition to the OR this a.m. given severity of findings and high-.grade #2. Hypokalemia: Admission K+ 3.4, magnesium level requested, supplementation given, repeat level in AM. #3. Carotid disease: Given presentation holding all oral medications, resume aspirin antihypertensive medications following, not on statin therapy. #4. Hypertension: Holding all oral medications given presentation as noted #1, as needed IV hydralazine and may have IV Lopressor addition if needed. #5. Hyperlipidemia: Not on statin therapy, defer to outpatient. #6. Chronic Kidney Disease Stage III, unclear subtype: Admission BUN/Cr 29/1.15, baseline renal function primarily 1.1-1.3, repeat BMP in AM. #7. Diabetes mellitus type II: Hold oral home regimen, n.p.o. status given acute presentation, accu checks w/ ISS, if hypoglycemia onset low threshold to transition to IV fluids with dextrose. #8. GERD: We will maintain on IV PPI. #9. Possible underlying depression: Patient with very flat affect, very somber with her acute presentation, reporting that most people have and that she does not have any people left 1 discussions occurred regarding healthcare power of family law attorney. Will need close follow-up and assessment for depression. #10. DVT prophylaxis: SCDs, holding chemoprophylaxis given likely OR needs. #11. CODE status: Patient HCPOA is not in place and currently she is unable to give a name for someone she would want to be her decision-maker and living will is in place. Discussed CODE status at length including difference between FULL code, DNR-CCA and DNR-CC status. Following discussions about the differences in these status, requested DNR-CCA, no intubation. Advanced Care Planning Face to Face Time: 16 minutes. Admission Evaluation Time spent evaluating chart, patient history, patient evaluation, care planning and discussion with specialists: 60 minutes. HPI Consult Data Date of Consult: 08/06/22 HPI Narrative Reason for Consultation: Medical consultation HPI Narrative: The patient is a 72 y/o F w/ PMHx: Diabetes mellitus type II, HTN, HLD, GERD, Carotid stenosis BL who presents to the [facility] ED on 08/06/22 with history of onset of abdominal pain, intermittent, diffuse, sharp and stabbing in nature with no nausea or emesis associated starting approximately 3 hours prior to ED presentation reporting it initially in the periumbilical region and then more diffusely in the entire abdomen with nothing causing it to worsen or improve prompting eventual EMS call for transition for evaluation. Patient is having severe 10 out of 10 pain although reports that it is slightly lessened since NG tube placement but is very frustrated. In the ED with questioning she is very soft-spoken and has a flat affect. Work- up in the ED included T97.6, heart rate 76, BP 212/76, respiratory rate 15, 96% on room air, CBC with WC 5.9, hemoglobin 12.7, platelet 166 without shift, CMP with potassium 3.4, BUN/creatinine 29/1.15, glucose 125 CT abdomen and pelvis with early high- grade distal mechanical small bowel obstruction with secondary mesenteric edema and small volume ascites, small amount of high attenuation fluid in the distal gastric lumen and proximal duodenum, presumed small might of ingested radiographic contrast or antacid medication. ED discussed case with general surgery who willplan admission and transition to OR this a.m. with request consultation to have service for medical management. [facility] Medical History Cardiac murmur Carotid stenosis, bilateral Diabetes GERD (gastroesophageal reflux disease) HTN (hypertension) Osteoarthritis Vertigo Home Medications cholecalciferol (vitamin D3) 1,250 mcg (50,000 unit) capsule 1 tab PO QWEEK 03/03/19 [History Last Taken Unknown] glimepiride 4 mg tablet 1 tab PO DAILY 03/03/19 [History Last Taken Unknown] indapamide 1.25 mg tablet 1.25 mg PO DAILY 03/03/19 [History Last Taken Unknown] metoprolol tartrate 50 mg tablet 50 mg PO BID 03/03/19 [History Last Taken Unknown] naproxen 500 mg tablet 500 mg PO BID PRN Pain 03/03/19 [History Last Taken Unknown] ondansetron 4 mg disintegrating tablet 4 mg PO Q8H PRN PRN Nausea #6 tabs 03/03/19 [Rx Last Taken Unknown] tramadol 50 mg tablet 50 mg PO DAILY 03/03/19 [History Last Taken Unknown] Carbamide Peroxide [Ear Drops] 15 ml OT BID #150 mL 03/06/19 [Rx Last Taken Unknown] amlodipine 10 mg tablet 10 mg PO DAILY #60 tabs 03/06/19 [Rx Last Taken Unknown] meclizine 25 mg tablet 25 mg PO Q6H 03/06/19 [Rx Last Taken Unknown] Allergy/AdvReac Type Severity Reaction Status Date / Time furosemide [From Lasix] Allergy Hives Verified 08/06/22 03:36 Sulfa (Sulfonamide Allergy Hives Verified 08/06/22 03:36 Antibiotics) Family History Mother Heart disease Hypertension Diabetes Father Heart disease Hypertension Diabetes Surgical History History of dilation and curettage History of partial hysterectomy Social History household members: none Smoking Status: Never smoker alcohol intake: never substance use type: does not use ROS ROS Narrative Admission Review of Systems: CONSTITUTIONAL: No weight loss, fever, chills, + weakness or fatigue. HEENT: Eyes: No visual loss, blurred vision, double vision or yellow sclerae. Ears, Nose, Throat: No hearing loss, sneezing, congestion, runny nose or sore throat. SKIN: No rash or itching, lesions, wounds. CARDIOVASCULAR: No chest pain, chest pressure or chest discomfort, palpitations,edema, orthopnea, syncopal events. RESPIRATORY: No shortness of breath, cough or sputum, wheezing, hemoptysis. GASTROINTESTINAL: + anorexia, abdominal pain, No nausea, vomiting, diarrhea, melena, BRBPR. GENITOURINARY: No dysuria, frequency, urgency or retention. NEUROLOGICAL: No headache, dizziness, syncope, paralysis, ataxia, numbness or tingling in the extremities, focal weakness, change in bowel or bladder control,seizure. MUSCULOSKELETAL: + muscle, back pain, joint pain or stiffness. HEMATOLOGIC: No anemia, bleeding or bruising. LYMPHATICS: No enlarged nodes. No history of splenectomy. PSYCHIATRIC: + Suspect depression. ENDOCRINOLOGIC: No reports of sweating, cold or heat intolerance. No polyuria orpolydipsia. ALLERGIES: + history of hives. Physical Exam Narrative Physical Examination: General: Awake, alert, oriented x 3 and cooperative, seated upright in the ED bed, very soft-spoken, irritable most recent NG tube placement per discussion with staff Skin: Normal color, normal turgor, no icterus, no cyanosis except for occasionalstaged ecchymoses. HEENT: AT/NC, EOMI, PERRLA, dry MM, NG tube in place, carotid bruits or JVD noted. Lungs: Mildly diminished, good bases, appropriate effort, no rales, ronchi or wheezing. Heart: Regular rate and rhythm; no gallop, rub audible. Abdomen: Soft, obese, severely tender to palpation in all quadrants, mild guarding, mildly distended, absent bowel sounds, difficulty assessing HSM given pain Extremities: No cyanosis, clubbing, or edema. Neurological: Patient awake, alert, oriented as noted, cognitive function appears intact; pupils equally reactive to light and accommodation, cranial nerves II- XII grossly normal, moving all 4 extremities, no focal deficits, strength moderately global decrease secondary to acute presentation Psychiatric: Affect appears flat, uncomfortable appearing, suspect underlying depression based on patient's comments. Lab / Micro Data Result Diagrams: 08/06/22 03:37 08/06/22 03:37 Labs: Laboratory Results - last 24 hr 08/06/22 03:37: WBC 5.9, RBC 4.12 L, Hgb 12.7, Hct 38.3, MCV 93.0, MCH 30.8, MCHC 33.2, RDW Std Deviation 43.6, RDW Coeff of Rojelio 12.8, Plt Count 166, MPV 10.2, Immature Gran % (Auto) 0.200, Neut % (Auto) 56.9, Lymph % (Auto) 30.5, Gregg % (Auto) 9.4, Eos % (Auto) 2.5, Baso % (Auto) 0.5, Absolute Neuts (auto) 3.4, Absolute Lymphs (auto) 1.81, Nucleated RBC % 0 08/06/22 03:37: Sodium 140, Potassium 3.4 L, Chloride 106, Carbon Dioxide 30.0, Anion Gap 4 L, BUN 29 H, Creatinine 1.15 H, Estim Creat Clear Calc 32.23, Est GFR (MDRD) Af Amer 60, Est GFR (MDRD) Non-Af 49 L, BUN/Creatinine Ratio 25.2 H, Glucose 125 H, Calcium 9.8, Total Bilirubin 0.60, AST 18, ALT 24, Alkaline Phosphatase 81, Total Protein 7.2, Albumin 3.6, Globulin 3.6, Albumin/Globulin Ratio 1.0, Amylase 100, Lipase 201 Radiology Impression Abdomen/Pelvis CT 08/06/22 03:50 IMPRESSION: 1. Early high-grade distal mechanical small bowel obstruction with secondary mesenteric edema and small volume ascites. Recommend surgical consultation. Obstruction possibly secondary to focal adhesion or stricture. 2. Small amount of high attenuation fluid within distal gastric lumen and proximal duodenum, presumed small amount of ingested radiographic contrast or antacid medication. Follow-up as clinically warranted if concern for upper GI hemorrhage. 3. Other nonurgent findings within body of report. Electronically Signed: Mateo Greenfield MD at 5:25 EST , ADDENDUM: 08/06/22 0536 IMPRESSION: 1. Early high-grade distal mechanical small bowel obstruction with secondary mesenteric edema and small volume ascites. Recommend surgical consultation. Obstruction possibly secondary to focal adhesion or stricture. 2. Small amount of high attenuation fluid within distal gastric lumen and proximal duodenum, presumed small amount of ingested radiographic contrast or antacid medication. Follow-up as clinically warranted if concern for upper GI hemorrhage. 3. Other nonurgent findings within body of report. N.B. : The above Results were Read Back by Mateo Greenfield MD to Eloy Dent MD, and understanding confirmed on 08/06/2022 05:29:05 (ET). Electronically Signed: Mateo Greenfield MD at 5:25 EST , Charges/Coding Visit Charges Office Visits / Consults: [id number] IP Consult L4 Procedures Hospitalists Procedures: 38893 Advncd Care Plan 30 Min 08/06/22 0612 <Electronically signed by Susan Isidro MD> Cosigner Signature (if applicable): CC: Dr. 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 (HCC) Vitamin D deficiency Unspecified vitamin D deficiency Type 2 diabetes mellitus with stage 3a chronic kidney disease, without long-term current use of insulin (HCC) Mixed hyperlipidemia Microalbuminuria due to type 2 diabetes mellitus (HCC) [facility] [place] [facility] Diagnosis Encounter for screening mammogram for breast cancer documented in this encounter [facility] note* Diagnosis Type 2 diabetes mellitus with chronic kidney disease, without long-term current use of insulin, unspecified CKD stage (HCC)- Primary Vitamin D deficiency Unspecified vitamin D deficiency Essential hypertension Unspecified essential hypertension Mixed hyperlipidemia Cramping of feet Cramp of limb Exudative age-related macular degeneration of right eye, unspecified stage (HCC) [facility] Need for vaccination- Primary Need for prophylactic vaccination and inoculation against unspecified single disease [facility] noteNo assessment information availableWSumma [facility] Work Phone: Evaluation note* Diagnosis 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 (HCC)- Primary Essential hypertension Unspecified essential hypertension Atypical chest pain Other chest pain Vitamin D deficiency Unspecified vitamin D deficiency Gastroesophageal reflux disease without esophagitis Esophageal reflux Colon cancer screening Special screening for malignant neoplasms, colon [facility] [place] [facility]* Diagnosis Foul smelling urine- Primary Other nonspecific finding on examination of urine [facility] Diagnosis Onset Date Resolution Status Abdominal pain acute Complete small bowel obstruction [facility] Work Phone: Evaluation note* Diagnosis Onset Date Resolution Status Abdominal pain acute Complete small bowel obstruction acute Hypokalemia [facility] Work Phone: Evaluation note* Diagnosis Intestinal adhesions with complete obstruction (HCC)- Primary S/P laparoscopy Other postprocedural status Impacted cerumen of right ear Impacted cerumen [facility] Diagnosis Primary Hypertension Unspecified essential hypertension [facility] Diagnosis Type 2 diabetes mellitus 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, unspecified whether longitudinal float operator insulin use (HCC) [facility] [place] [facility]* Diagnosis 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 (HCC)- Primary Exudative age-related macular degeneration of right eye, unspecified stage (HCC) Acute cystitis with hematuria Acute cystitis Essential hypertension Unspecified essential hypertension Cloudy urine Other nonspecific finding on examination of urine Bad odor of urine Other nonspecific finding on examination of urine Vitamin D deficiency Unspecified vitamin D deficiency Mixed hyperlipidemia [facility] Diagnosis Encounter for screening mammogram for breast cancer [facility] [place] [facility]* Diagnosis Primary Hypertension Unspecified essential hypertension [facility] [place]* Diagnosis Primary Hypertension Unspecified essential hypertension documented in this encounter [facility]* Diagnosis Primary Hypertension Unspecified essential hypertension documented in this encounter [facility] note* Diagnosis Encounter for screening mammogram for breast cancer documented in this encounter [facility] note* Diagnosis Encounter for medical assessment- Primary documented in this encounter [facility] note* Diagnosis Type 2 diabetes mellitus 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, unspecified whether longitudinal float operator insulin use (HCC) documented in this encounter [facility] note* Diagnosis Type 2 diabetes mellitus with chronic kidney disease, without long-term current use of insulin, unspecified CKD stage (HCC) documented in this encounter [facility] note* Diagnosis Type 2 diabetes mellitus with stage 3a chronic kidney disease, without long-term current use of insulin (HCC)- Primary Hypoglycemia Hypoglycemia, unspecified Primary Hypertension Unspecified essential hypertension Bilateral lower extremity edema Edema Vitamin D deficiency Unspecified vitamin D deficiency Lung nodule seen on imaging study Solitary pulmonary nodule Renal insufficiency Unspecified disorder of kidney and ureter Anxiety state Anxiety state, unspecified Lung nodule seen on imaging study Solitary pulmonary nodule documented in this encounter [facility] note* Diagnosis Sinoatrial node dysfunction (HCC)- Primary Sinoatrial node dysfunction documented in this encounter [facility] note* Diagnosis Primary Hypertension- Primary Unspecified essential hypertension Bilateral lower extremity edema Edema Anemia, unspecified type S/P cardiac pacemaker procedure Cardiac pacemaker in situ Anxiety state Anxiety state, unspecified documented in this encounter [facility] note* Diagnosis Lung nodule seen on imaging study Solitary pulmonary nodule documented in this encounter [facility] note* Diagnosis Symptomatic bradycardia- Primary Other specified cardiac dysrhythmias documented in this encounter [facility] note* Diagnosis Vitamin D deficiency- Primary Unspecified vitamin D deficiency Mixed hyperlipidemia Essential hypertension Unspecified essential hypertension Type 2 diabetes mellitus with stage 3a chronic kidney disease, without long-term current use of insulin (HCC) Encounter for long-term current use of medication documented in this encounter [facility] note* Diagnosis Symptomatic bradycardia [R00.1]- Primary Other specified cardiac dysrhythmias documented in this encounter [facility] note* Diagnosis Encounter for care of pacemaker- Primary Mobitz type II atrioventricular block Mobitz (type) II atrioventricular block Sinoatrial node dysfunction (HCC) Sinoatrial node dysfunction Moderate mitral valve stenosis Mitral stenosis [facility] Encounter for screening mammogram for breast cancer Pacemaker reprogramming/check Fitting and adjustment of cardiac pacemaker [facility] Additional Instructions Please continue all of your medication as previously directed. Your work-up today does not show any signs of heart damage or heart attack. Please return to the ER should you have any further concernsWS[facility] Hospital Discharge instructionsAmbulatory Orders* General Surgery Location: None Selected [facility] Work Phone: Patient's home Plan of care note* Visit Details Visit Type -SN ROUTINE Discipline -Intermediate Problems Problem Description Start Date Status Goals Interve ntions High Risk Medications Disciplines: Skilled Services 11/20/2023 Active 1 goal linked to scheduled/documen arnoldo intervention 1 goal intervention scheduled/document ed in this visit Medication Education Disciplines: Skilled Services 11/20/2023 Active 1 goal linked to scheduled/documen arnoldo intervention 1 goal intervention scheduled/document ed in this visit Sepsis Disciplines: Skilled Services 11/20/2023 Active 1 goal linked to scheduled/documen arnoldo intervention 1 goal intervention scheduled/document ed in this visit Physician Specific Parameters Disciplines: Skilled Services 11/20/2023 Active 1 goal linked to scheduled/documen arnoldo intervention 1 goal intervention scheduled/document ed in this visit Risk for Falls Disciplines: Skilled Services 11/20/2023 Active 1 goal linked to scheduled/documen arnoldo intervention 1 goal intervention scheduled/document ed in this visit Diabetic Foot Care Disciplines: Skilled Services 11/20/2023 Active 1 goal linked to scheduled/documen arnoldo intervention 1 goal intervention scheduled/document ed in this visit Nutrition/Hydration Disciplines: Skilled Services 11/20/2023 Active 1 goal linked to scheduled/documen arnoldo intervention 1 goal intervention scheduled/document ed in this visit SN Cardiac Procedure/Surgery Disciplines: SN 11/20/2023 Active 1 goal linked to scheduled/documen arnoldo intervention 1 goal intervention scheduled/document ed in this visit SN Diabetes Disciplines: SN 11/20/2023 Active 1 goal linked to scheduled/documen arnoldo intervention 1 goal intervention scheduled/document ed in this visit SN Cardiovascular Condition Disciplines: 11/20/2023 Active 1 goal linked to scheduled/documen arnoldo intervention 1 goal intervention scheduled/document ed in this visit SN Learning Assessment Disciplines: 11/20/2023 Active 1 goal linked to scheduled/documen arnoldo intervention 1 goal intervention scheduled/document ed in this visit Goals Goal Associated Problem Outcome Goal Met? Visit Notes Patient/caregiver will teach back high risk medication side effect and precaution education Description: STG Patient/caregiver will verbalize understanding of high risk medication side effects and precautions to be achieved by 01/18/24. LTG Patient/caregiver will continue to verbalize understanding of high risk medication side effects and precautions throughout certification period. High Risk Medications No Patient/caregiver will demonstrate ability to obtain, store, identify and administer ordered medications, keep accurate medication list in home, and adhere to medication schedule Description: Patient/caregiver will demonstrate ability to obtain, store, identify and administer ordered medications, keep accurate medication list in home, and adhere to medication schedule by 01/18/24. Medication Education No Patient/caregiver will be able to identify and report symptoms of sepsis Description: Patient/caregiver will be able to identify signs/symptoms of sepsis infection and will verbalize actions to take if suspected by 01/18/24. Sepsis No Patient to maintain parameters within physician-specified ranges throughout certification period Physician Specific Parameters No Manage Risk for falls Description: Patient/caregiver will verbalize knowledge of individualized fall prevention strategies by 01/18/24. Risk for Falls No Manage diabetic foot care Description: Patient/caregiver will demonstrate basic understanding of and compliance with diabetic self-care management as evidenced by verbalizing purpose of daily foot care and assessment by 12/20/23. Diabetic Foot Care No Manage Nutrition/Hydration Description: Patient/caregiver will verbalize/demonstrate knowledge of prescribed diet and/or healthy nutrition to be achieved by 12/20/23. Nutrition/Hydration No Patient will have an uncomplicated recovery post cardiac procedure/surgery Description: Patient/caregiver will demonstrate understanding of aftercare post cardiac procedure/surgery as evidenced by an uncomplicated recovery to be achieved by 01/18/24. SN Cardiac Procedure/Surgery No Improved management of diabetes Description: Improve diabetic management as evidenced by patient/caregiver able to teach back diabetic management strategies by 01/18/24. SN Diabetes No Improved management of cardiovascular disease Description: Improve patient/caregiver management of cardiac disease as evidenced by patient/caregiver ability to teach back cardiac management strategies by 01/18/24. SN Cardiovascular Condition No Demonstrate understanding of education Description: Patient and/or caregiver will verbalize understanding of educational instruction provided throughout certification period. SN Learning Assessment No Interventions Intervention Associated Problem/Goal Status Variance Visit Notes Hypoglycemic (including insulin)- educated on high risk medication Problem:High Risk Medications Goal:Patient/caregiver will teach back high risk medication side effect and precaution education Completed patient educated on taking medication(s) as prescribed by provider. Do not stop medication or skip/alter doses without speaking with your provider. Discuss medication effectiveness or side effect concerns with your provider and home care team. Check blood sugars and keep log as ordered by provider. Monitor for side effects of hypoglycemia such as increased weakness or shaking, moist skin, sweating, fast heartbeat, dizziness, sudden hunger, confusion, pale skin, numbness in mouth or tongue, irritability, nervousness, unsteadiness, nightmares, bad dreams, and restless sleep. Checking your blood sugar routinely and eating a consistent diabetic diet can help regulate blood sugars and reduce side effects. Medication Education Description: Evaluate/instruct patient/caregiver on obtaining, storing, identifying and administering ordered medications as well as keeping accurate medication list in the home and adhereing to medication schedule Problem:Medication Education Goal:Patient/caregiver will demonstrate ability to obtain, store, identify and administer ordered medications, keep accurate medication list in home, and adhere to medication schedule Completed Patient instructed on adhering to medication schedule. Risk of Sepsis Description: Patient is at risk for sepsis. Monitor closely for s/s of sepsis. Problem:Sepsis Goal:Patient/caregiver will be able to identify and report symptoms of sepsis Completed SPO2 Description: Notify Carmen Johnson MD and stop activity if pulse ox is <92% at rest. Problem:Physician Specific Parameters Goal:Patient to maintain parameters within physician-specified ranges throughout certification period Completed Instruct on individual fall risk factors and strategies to prevent falls and injuries caused by falls. Problem:Risk for Falls Goal:Manage Risk for falls Completed SN: Patient instructed on Eliminating Environmental Hazards: Keep pathways clear Monitor lower extremities for skin lesions and educate on proper foot care Problem:Diabetic Foot Care Goal:Manage diabetic foot care Completed patient instructed on diabetic foot care including wearing proper footwear/avoiding going barefoot. Define patient s appetite/hydration status and implement strategies to improve compliance with prescribed diet and/or healthy nutrition. Description: ADA and low sodium Problem:Nutrition/Hydr ation Goal:Manage Nutrition/Hydration Completed reinforced patient on implementing strategies to comply with prescribed diet, healthy nutrition and adequate hydration Assess/instruct aftercare cardiac procedure Description: Patient recently had Pacemaker. Problem:SN Cardiac Procedure/Surgery Goal:Patient will have an uncomplicated recovery post cardiac procedure/surgery Completed patient assessed and reinforced on keeping all incisions clean with mild soap and water and leave open to air, allow steri-strips to slough off on it's own, signs & symptoms of 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s: infection such as fever of 101 or greater, chills, redness and/or drainage of incision site, nausea/vomiting, and/or malaise and cardiac 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s such as headache, dizziness, light-headedness, SOB, heart palpitations, chest pain, or chest pressure and activity guidelines: no raising arms greater than 90 degrees, no lifting items >8-10lbs and walking program. Instruct on diabetes disease process and management of chronic condition Description: Patient has needs for education of diabetes. Problem:SN Diabetes Goal:Improved management of diabetes Completed patient assessed and reinforced on diabetes disease process as found in the diabetes self-care booklets. Instruct on cardiovascular disease process and management of condition Description: Patient has following cardiac diagnosis(es): Hypertension. Problem:SN Cardiovascular Condition Goal:Improved management of cardiovascular disease Completed patient instructed on self monitoring & symptom reporting. Instruct and educate on knowledge deficits Problem:SN Learning Assessment Goal:Demonstrate understanding of education Completed patient verbalize and/or demonstrate understanding of nursing education completed today. Education methods include: verbal cues. Further education required to improve knowledge and compliance with cardiac disease management, diabetic care management, fall prevention/home safety strategies, incision/wound care management, medication management and nutrition. documented in this encounter [facility] for referral (narrative)* Diagnostic Procedure Only (Routine) - Pending Review Specialty Diagnoses / Procedures Referred By Germán mendez Referred To Contact [facility] Diagnoses Encounter for screening mammogram for breast cancer Procedures SEEMA SCREENING SCREENING MAMMOGRAPHY BI 2-VIEW BREAST INC CAD Carmen Johnson MD [address] [place] [address] [facility] [address] [place] [address] Referral ID Status Reason Start Date Expiration Date Visits Requested Visits Authorized [id number] Pending Review Auto-Generat ed Referral 12/08/2021 01/07/2023 1 1 [facility] for referral (narrative)* Diagnostic Procedure Only (Routine) - Pending Review Specialty Diagnoses / Procedures Referred By Germán mendez Referred To Contact [facility] Diagnoses Encounter for screening mammogram for breast cancer Procedures SEEMA SCREENING SCREENING MAMMOGRAPHY BI 2-VIEW BREAST INC Carmen Beltran MD [address] [place] [address] [facility] [address] [place] [address] Referral ID Status Reason Start Date Expiration Date Visits Requested Visits Authorized [id number] Pending Review Auto-Generat ed Referral 11/09/2022 12/09/2023 1 1 [facility] for referral (narrative)* Diagnostic Procedure Only (Routine) - Pending Review Specialty Diagnoses / Procedures Referred By Germán mendez Referred To Contact [facility] Diagnoses Encounter for screening mammogram for breast cancer Procedures SEEMA SCREENING SCREENING MAMMOGRAPHY BI 2-VIEW BREAST INC Carmen Beltran MD [address] [place] [address] [facility] [address] [place] [address] Referral ID Status Reason Start Date Expiration Date Visits Requested Visits Authorized [id number] Pending Review Auto-Generat ed Referral 10/18/2023 11/16/2024 1 1 [facility] Chief Complaint and Reason for Visit Chief Complaint weakness Chief Complaint weakness cp Chief Complaint weakness cp SBO, DM Reason for Visit Abdominal pain Complete small bowel obstruction Chief Complaint cp SBO, DM SBO SBO SBO SBO SBO SBO SBO SBO SBO Reason for Visit Abdominal pain Complete small bowel obstruction Hypokalemia Chief Complaint Admit Date 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 EST CARE - PPW SENT November 18, 2024 1 :02pm Reason for Visit Admit Date Cardiac murmur September 25, 2024 8:1 5am Concern about memory September 25, 2024 8: 15am Weight loss September 25, 2024 8:1 5am HTN (hypertension) September 25, 2024 8:1 5am Breast cancer screening September 25, 2024 8:15am Colon cancer screening September 25, 2024 8:15am S/P placement of cardiac pacemaker November 18, 2024 1:02pm Establishing care with new carson valdovinos for November 18, 2024 1:02pm Anemia November 18, 2024 1:02p m Essential hypertension November 18, 2024 1: 02pm Prediabetes November 18, 2024 1:02p m Cognitive impairment November 18, 2024 1:02 pm Hypokalemia November 18, 2024 1:02p m Reason for Visit Admit Date Cardiac murmur September 25, 2024 8:1 5am Concern about memory September 25, 2024 8: 15am Weight loss September 25, 2024 8:1 5am HTN (hypertension) September 25, 2024 8:1 5am Breast cancer screening September 25, 2024 8:15am Colon cancer screening September 25, 2024 8:15am Screening for depression November 18, 2024 1:02pm Immunization declined November 18, 2024 1:0 2pm S/P placement of cardiac pacemaker November 18, 2024 1:02pm Establishing care with new carson valdovinos for November 18, 2024 1:02pm Anemia November 18, 2024 1:02p m Essential hypertension November 18, 2024 1: 02pm Prediabetes November 18, 2024 1:02p m Cognitive impairment November 18, 2024 1:02 pm Hypokalemia November 18, 2024 1:02p m Advance Directives No Advanced Directives Records Found Date Activated Date Inactivated Comments 11/20/2023 3:38 PM 11/28/2023 9:50 AM Date Activated Date Inactivated Comments 11/06/2023 9:06 AM 11/15/2023 5:24 PM Question Answer Comments Full Code Order Discussed With: Patient Date Activated Date Inactivated Comments 11/06/2023 9:06 AM 11/15/2023 5:24 PM Question Answer Comments Full Code Order Discussed With: Patient Advance Directive Response Recorded Date/ Time Living Will No April 11 10:29pm Power of Electrical Tests Supervisor No April 11, 2022 10:29pm Advance Directive Response Recorded Date/ Time Living Will No April 22, 2 022 9:54pm Power of Electrical Tests Supervisor No April 22, 2022 9:54pm Advance Directive Response Recorded Date/ Time Living Will No August 06, 2 023 3:36am Power of Electrical Tests Supervisor No August 06, 2022 3:36am Advance Directive Response Recorded Date/ Time Living Will No August 06, 2 023 6:32am Power of Electrical Tests Supervisor No August 06, 2022 6:32am Date Activated Date Inactivated Comments 11/06/2023 9:06 AM Date Activated Date Inactivated Comments 11/20/2023 3:38 PM Date Activated Date Inactivated Comments 11/20/2023 3:38 PM 11/28/2023 9:50 AM Date Activated Date Inactivated Comments 11/06/2023 9:06 AM 11/15/2023 5:24 PM Question Answer Comments Full Code Order Discussed With: Patient Family History No Family History Records Found Relationship Condition Age at Onset Recorded Date/T [place] mother Cardiac disease Unknown Hypertension Unknown Diabetes mellitus Unknown father Cardiac disease Unknown Relationship Condition Age at Onset Recorded Date/T laurence mother Cardiac disease Unknown Hypertension Unknown father Cardiac disease Unknown Diabetes mellitus Unknown brother Diabetes mellitus Unknown Relationship Condition Age at Onset Recorded Date/T laurence mother Cardiac disease Unknown Hypertension Unknown father Cardiac disease Unknown Diabetes mellitus Unknown brother Diabetes mellitus Unknown Malignant neoplasm Unknown Summary Purpose Additional Source Comments Source Comments (unrecognize d section and content) In the event this informatio n is protected by the Federal Confidentiality of Alcohol and Drug Abuse Patient Records regulations: The Federal rules restrict any use of the information to criminally investigate or prosecute any alcohol or drug abuse patient.[facility] event this information is protected by the Federal Confidentiality of Alcohol and Drug Abuse Patient Records regulations: The Federal rules restrict any use of the information to criminally investigate or prosecute any alcohol or drug abuse patient.[facility] the event this information is protected by the Federal Confidentiality of Alcohol and Drug Abuse Patient Records regulations: The Federal rules restrict any use of the information to criminally investigate or prosecute any alcohol or drug abuse patient.[facility] the event this information is protected by the Federal Confidentiality of Alcohol and Drug Abuse Patient Records regulations: The Federal rules restrict any use of the information to criminally investigate or prosecute any alcohol or drug abuse patient.[facility] the event this information is protected by the Federal Confidentiality of Alcohol and Drug Abuse Patient Records regulations: The Federal rules restrict any use of the information to criminally investigate or prosecute any alcohol or drug abuse patient.[facility] the event this information is protected by the Federal Confidentiality of Alcohol and Drug Abuse Patient Records regulations: The Federal rules restrict any use of the information to criminally investigate or prosecute any alcohol or drug abuse patient.[facility] the event this information is protected by the Federal Confidentiality of Alcohol and Drug Abuse Patient Records regulations: The Federal rules restrict any use of the information to criminally investigate or prosecute any alcohol or drug abuse patient.[facility] the event this information is protected by the Federal Confidentiality of Alcohol and Drug Abuse Patient Records regulations: The Federal rules restrict any use of the information to criminally investigate or prosecute any alcohol or drug abuse patient.[facility] the event this information is protected by the Federal Confidentiality of Alcohol and Drug Abuse Patient Records regulations: The Federal rules restrict any use of the information to criminally investigate or prosecute any alcohol or drug abuse patient.[facility] the event this information is protected by the Federal Confidentiality of Alcohol and Drug Abuse Patient Records regulations: The Federal rules restrict any use of the information to criminally investigate or prosecute any alcohol or drug abuse patient.[facility] the event this information is protected by the Federal Confidentiality of Alcohol and Drug Abuse Patient Records regulations: The Federal rules restrict any use of the information to criminally investigate or prosecute any alcohol or drug abuse patient.[facility] the event this information is protected by the Federal Confidentiality of Alcohol and Drug Abuse Patient Records regulations: The Federal rules restrict any use of the information to criminally investigate or prosecute any alcohol or drug abuse patient.[facility] the event this information is protected by the Federal Confidentiality of Alcohol and Drug Abuse Patient Records regulations: The Federal rules restrict any use of the information to criminally investigate or prosecute any alcohol or drug abuse patient.[facility] the event this information is protected by the Federal Confidentiality of Alcohol and Drug Abuse Patient Records regulations: The Federal rules restrict any use of the information to criminally investigate or prosecute any alcohol or drug abuse patient.[facility] the event this information is protected by the Federal Confidentiality of Alcohol and Drug Abuse Patient Records regulations: The Federal rules restrict any use of the information to criminally investigate or prosecute any alcohol or drug abuse patient.[facility] the event this information is protected by the Federal Confidentiality of Alcohol and Drug Abuse Patient Records regulations: The Federal rules restrict any use of the information to criminally investigate or prosecute any alcohol or drug abuse patient.[facility] the event this information is protected by the Federal Confidentiality of Alcohol and Drug Abuse Patient Records regulations: The Federal rules restrict any use of the information to criminally investigate or prosecute any alcohol or drug abuse patient.[facility] the event this information is protected by the Federal Confidentiality of Alcohol and Drug Abuse Patient Records regulations: The Federal rules restrict any use of the information to criminally investigate or prosecute any alcohol or drug abuse patient.[facility] HospitalIn the event this information is protected by the Federal Confidentiality of Alcohol and Drug Abuse Patient Records regulations: The Federal rules restrict any use of the information to criminally investigate or prosecute any alcohol or drug abuse patient.[facility] HospitalIn the event this information is protected by the Federal Confidentiality of Alcohol and Drug Abuse Patient Records regulations: The Federal rules restrict any use of the information to criminally investigate or prosecute any alcohol or drug abuse patient.[facility] HospitalIn the event this information is protected by the Federal Confidentiality of Alcohol and Drug Abuse Patient Records regulations: The Federal rules restrict any use of the information to criminally investigate or prosecute any alcohol or drug abuse patient.[facility] HospitalIn the event this information is protected by the Federal Confidentiality of Alcohol and Drug Abuse Patient Records regulations: The Federal rules restrict any use of the information to criminally investigate or prosecute any alcohol or drug abuse patient.[facility] HospitalIn the event this information is protected by the Federal Confidentiality of Alcohol and Drug Abuse Patient Records regulations: The Federal rules restrict any use of the information to criminally investigate or prosecute any alcohol or drug abuse patient.[facility] HospitalIn the event this information is protected by the Federal Confidentiality of Alcohol and Drug Abuse Patient Records regulations: The Federal rules restrict any use of the information to criminally investigate or prosecute any alcohol or drug abuse patient.[facility] HospitalIn the event this information is protected by the Federal Confidentiality of Alcohol and Drug Abuse Patient Records regulations: The Federal rules restrict any use of the information to criminally investigate or prosecute any alcohol or drug abuse patient.[facility] HospitalIn the event this information is protected by the Federal Confidentiality of Alcohol and Drug Abuse Patient Records regulations: The Federal rules restrict any use of the information to criminally investigate or prosecute any alcohol or drug abuse patient.[facility] HospitalIn the event this information is protected by the Federal Confidentiality of Alcohol and Drug Abuse Patient Records regulations: The Federal rules restrict any use of the information to criminally investigate or prosecute any alcohol or drug abuse patient.[facility] HospitalIn the event this information is protected by the Federal Confidentiality of Alcohol and Drug Abuse Patient Records regulations: The Federal rules restrict any use of the information to criminally investigate or prosecute any alcohol or drug abuse patient.[facility] HospitalIn the event this information is protected by the Federal Confidentiality of Alcohol and Drug Abuse Patient Records regulations: The Federal rules restrict any use of the information to criminally investigate or prosecute any alcohol or drug abuse patient.[facility] HospitalIn the event this information is protected by the Federal Confidentiality of Alcohol and Drug Abuse Patient Records regulations: The Federal rules restrict any use of the information to criminally investigate or prosecute any alcohol or drug abuse patient.[facility] HospitalIn the event this information is protected by the Federal Confidentiality of Alcohol and Drug Abuse Patient Records regulations: The Federal rules restrict any use of the information to criminally investigate or prosecute any alcohol or drug abuse patient.[facility] HospitalIn the event this information is protected by the Federal Confidentiality of Alcohol and Drug Abuse Patient Records regulations: The Federal rules restrict any use of the information to criminally investigate or prosecute any alcohol or drug abuse patient.[facility] HospitalIn the event this information is protected by the Federal Confidentiality of Alcohol and Drug Abuse Patient Records regulations: The Federal rules restrict any use of the information to criminally investigate or prosecute any alcohol or drug abuse patient.[facility] HospitalIn the event this information is protected by the Federal Confidentiality of Alcohol and Drug Abuse Patient Records regulations: The Federal rules restrict any use of the information to criminally investigate or prosecute any alcohol or drug abuse patient.[facility] HospitalIn the event this information is protected by the Federal Confidentiality of Alcohol and Drug Abuse Patient Records regulations: The Federal rules restrict any use of the information to criminally investigate or prosecute any alcohol or drug abuse patient.[facility] HospitalIn the event this information is protected by the Federal Confidentiality of Alcohol and Drug Abuse Patient Records regulations: The Federal rules restrict any use of the information to criminally investigate or prosecute any alcohol or drug abuse patient.[facility] HospitalIn the event this information is protected by the Federal Confidentiality of Alcohol and Drug Abuse Patient Records regulations: The Federal rules restrict any use of the information to criminally investigate or prosecute any alcohol or drug abuse patient.[facility] HospitalIn the event this information is protected by the Federal Confidentiality of Alcohol and Drug Abuse Patient Records regulations: The Federal rules restrict any use of the information to criminally investigate or prosecute any alcohol or drug abuse patient.[facility] HospitalIn the event this information is protected by the Federal Confidentiality of Alcohol and Drug Abuse Patient Records regulations: The Federal rules restrict any use of the information to criminally investigate or prosecute any alcohol or drug abuse patient.[facility] HospitalIn the event this information is protected by the Federal Confidentiality of Alcohol and Drug Abuse Patient Records regulations: The Federal rules restrict any use of the information to criminally investigate or prosecute any alcohol or drug abuse patient.[facility] HospitalIn the event this information is protected by the Federal Confidentiality of Alcohol and Drug Abuse Patient Records regulations: The Federal rules restrict any use of the information to criminally investigate or prosecute any alcohol or drug abuse patient.[facility] HospitalIn the event this information is protected by the Federal Confidentiality of Alcohol and Drug Abuse Patient Records regulations: The Federal rules restrict any use of the information to criminally investigate or prosecute any alcohol or drug abuse patient.[facility] HospitalIn the event this information is protected by the Federal Confidentiality of Alcohol and Drug Abuse Patient Records regulations: The Federal rules restrict any use of the information to criminally investigate or prosecute any alcohol or drug abuse patient.[facility] HospitalIn the event this information is protected by the Federal Confidentiality of Alcohol and Drug Abuse Patient Records regulations: The Federal rules restrict any use of the information to criminally investigate or prosecute any alcohol or drug abuse patient.[facility] HospitalIn the event this information is protected by the Federal Confidentiality of Alcohol and Drug Abuse Patient Records regulations: The Federal rules restrict any use of the information to criminally investigate or prosecute any alcohol or drug abuse patient.[facility] HospitalIn the event this information is protected by the Federal Confidentiality of Alcohol and Drug Abuse Patient Records regulations: The Federal rules restrict any use of the information to criminally investigate or prosecute any alcohol or drug abuse patient.[facility] HospitalIn the event this information is protected by the Federal Confidentiality of Alcohol and Drug Abuse Patient Records regulations: The Federal rules restrict any use of the information to criminally investigate or prosecute any alcohol or drug abuse patient.[facility] HospitalIn the event this information is protected by the Federal Confidentiality of Alcohol and Drug Abuse Patient Records regulations: The Federal rules restrict any use of the information to criminally investigate or prosecute any alcohol or drug abuse patient.[facility] HospitalIn the event this information is protected by the Federal Confidentiality of Alcohol and Drug Abuse Patient Records regulations: The Federal rules restrict any use of the information to criminally investigate or prosecute any alcohol or drug abuse patient.[facility] HospitalIn the event this information is protected by the Federal Confidentiality of Alcohol and Drug Abuse Patient Records regulations: The Federal rules restrict any use of the information to criminally investigate or prosecute any alcohol or drug abuse patient.[facility] HospitalIn the event this information is protected by the Federal Confidentiality of Alcohol and Drug Abuse Patient Records regulations: The Federal rules restrict any use of the information to criminally investigate or prosecute any alcohol or drug abuse patient.[facility] HospitalIn the event this information is protected by the Federal Confidentiality of Alcohol and Drug Abuse Patient Records regulations: The Federal rules restrict any use of the information to criminally investigate or prosecute any alcohol or drug abuse patient.[facility] HospitalIn the event this information is protected by the Federal Confidentiality of Alcohol and Drug Abuse Patient Records regulations: The Federal rules restrict any use of the information to criminally investigate or prosecute any alcohol or drug abuse patient.[facility] HospitalIn the event this information is protected by the Federal Confidentiality of Alcohol and Drug Abuse Patient Records regulations: The Federal rules restrict any use of the information to criminally investigate or prosecute any alcohol or drug abuse patient.[facility] HospitalIn the event this information is protected by the Federal Confidentiality of Alcohol and Drug Abuse Patient Records regulations: The Federal rules restrict any use of the information to criminally investigate or prosecute any alcohol or drug abuse patient.[facility] HospitalIn the event this information is protected by the Federal Confidentiality of Alcohol and Drug Abuse Patient Records regulations: The Federal rules restrict any use of the information to criminally investigate or prosecute any alcohol or drug abuse patient.[facility] HospitalIn the event this information is protected by the Federal Confidentiality of Alcohol and Drug Abuse Patient Records regulations: The Federal rules restrict any use of the information to criminally investigate or prosecute any alcohol or drug abuse patient.[facility] HospitalIn the event this information is protected by the Federal Confidentiality of Alcohol and Drug Abuse Patient Records regulations: The Federal rules restrict any use of the information to criminally investigate or prosecute any alcohol or drug abuse patient.[facility] HospitalIn the event this information is protected by the Federal Confidentiality of Alcohol and Drug Abuse Patient Records regulations: The Federal rules restrict any use of the information to criminally investigate or prosecute any alcohol or drug abuse patient.[facility] HospitalIn the event this information is protected by the Federal Confidentiality of Alcohol and Drug Abuse Patient Records regulations: The Federal rules restrict any use of the information to criminally investigate or prosecute any alcohol or drug abuse patient.[facility] HospitalIn the event this information is protected by the Federal Confidentiality of Alcohol and Drug Abuse Patient Records regulations: The Federal rules restrict any use of the information to criminally investigate or prosecute any alcohol or drug abuse patient.[facility] HospitalIn the event this information is protected by the Federal Confidentiality of Alcohol and Drug Abuse Patient Records regulations: The Federal rules restrict any use of the information to criminally investigate or prosecute any alcohol or drug abuse patient.[facility] HospitalIn the event this information is protected by the Federal Confidentiality of Alcohol and Drug Abuse Patient Records regulations: The Federal rules restrict any use of the information to criminally investigate or prosecute any alcohol or drug abuse patient.[facility] HospitalIn the event this information is protected by the Federal Confidentiality of Alcohol and Drug Abuse Patient Records regulations: The Federal rules restrict any use of the information to criminally investigate or prosecute any alcohol or drug abuse patient.[facility] HospitalIn the event this information is protected by the Federal Confidentiality of Alcohol and Drug Abuse Patient Records regulations: The Federal rules restrict any use of the information to criminally investigate or prosecute any alcohol or drug abuse patient.[facility] HospitalIn the event this information is protected by the Federal Confidentiality of Alcohol and Drug Abuse Patient Records regulations: The Federal rules restrict any use of the information to criminally investigate or prosecute any alcohol or drug abuse patient.[facility] HospitalIn the event this information is protected by the Federal Confidentiality of Alcohol and Drug Abuse Patient Records regulations: The Federal rules restrict any use of the information to criminally investigate or prosecute any alcohol or drug abuse patient.[facility] HospitalIn the event this information is protected by the Federal Confidentiality of Alcohol and Drug Abuse Patient Records regulations: The Federal rules restrict any use of the information to criminally investigate or prosecute any alcohol or drug abuse patient.[facility] HospitalIn the event this information is protected by the Federal Confidentiality of Alcohol and Drug Abuse Patient Records regulations: The Federal rules restrict any use of the information to criminally investigate or prosecute any alcohol or drug abuse patient.[facility] HospitalIn the event this information is protected by the Federal Confidentiality of Alcohol and Drug Abuse Patient Records regulations: The Federal rules restrict any use of the information to criminally investigate or prosecute any alcohol or drug abuse patient.[facility] HospitalIn the event this information is protected by the Federal Confidentiality of Alcohol and Drug Abuse Patient Records regulations: The Federal rules restrict any use of the information to criminally investigate or prosecute any alcohol or drug abuse patient.[facility] HospitalIn the event this information is protected by the Federal Confidentiality of Alcohol and Drug Abuse Patient Records regulations: The Federal rules restrict any use of the information to criminally investigate or prosecute any alcohol or drug abuse patient.[facility] HospitalIn the event this information is protected by the Federal Confidentiality of Alcohol and Drug Abuse Patient Records regulations: The Federal rules restrict any use of the information to criminally investigate or prosecute any alcohol or drug abuse patient.[facility] HospitalIn the event this information is protected by the Federal Confidentiality of Alcohol and Drug Abuse Patient Records regulations: The Federal rules restrict any use of the information to criminally investigate or prosecute any alcohol or drug abuse patient.[facility] HospitalIn the event this information is protected by the Federal Confidentiality of Alcohol and Drug Abuse Patient Records regulations: The Federal rules restrict any use of the information to criminally investigate or prosecute any alcohol or drug abuse patient.[facility] HospitalIn the event this information is protected by the Federal Confidentiality of Alcohol and Drug Abuse Patient Records regulations: The Federal rules restrict any use of the information to criminally investigate or prosecute any alcohol or drug abuse patient.[facility] HospitalIn the event this information is protected by the Federal Confidentiality of Alcohol and Drug Abuse Patient Records regulations: The Federal rules restrict any use of the information to criminally investigate or prosecute any alcohol or drug abuse patient.[facility] HospitalIn the event this information is protected by the Federal Confidentiality of Alcohol and Drug Abuse Patient Records regulations: The Federal rules restrict any use of the information to criminally investigate or prosecute any alcohol or drug abuse patient.[facility] HospitalIn the event this information is protected by the Federal Confidentiality of Alcohol and Drug Abuse Patient Records regulations: The Federal rules restrict any use of the information to criminally investigate or prosecute any alcohol or drug abuse patient.[facility] HospitalIn the event this information is protected by the Federal Confidentiality of Alcohol and Drug Abuse Patient Records regulations: The Federal rules restrict any use of the information to criminally investigate or prosecute any alcohol or drug abuse patient.[facility] Reason for Visit (unrecogniz ed section and content) Reason Comments Follow Up Reason Onset Date Comments Refill Request 01/13/2022 Reason Comments Medical Clearance Reason Comments Imm/Inj Reason Comments Forms Reason Comments ED Follow-up [facility]-Chest pain/press ure Reason Comments Results Reason Onset Date Comments Population Health Navigation Outreach 07/06/2022 [facility] [place] [facility] Reason Comments Established Patient 4 month follow up Reason Comments Hospital F/U [facility] discharge 08/12/19 Reason Onset Date Comments Refill Request 09/22/2022 Reason Onset Date Comments Refill Request 10/22/2022 Reason Onset Date Comments Refill Request 12/02/2022 Reason Onset Date Comments Refill Request 01/24/2023 Reason Comments Refill Request Reason Comments medication refill Reason Onset Date Comments Refill Request 10/02/2023 Reason Onset Date Comments Wound Check 11/08/2023 Appointment 11/08/2023 Reason Comments Home Care Confirmation Call Reason Comments Home Care MD to follow Reason Comments Home Care SOC Confirmation (to day) Reason Comments Information Reason Onset Date Comments Transition Of Care 11/17/2023 [employer] nonres ponse single outreach Reason Comments Homecare Reason Comments Home Care Reason Comments Reason Onset Date Comments Escalation of Care 11/20/2023 Reason Onset Date Comments Refill Request 11/20/2023 Reason Comments Home Care Hypertensive Reason Comments Home Care Delay in care Reason Onset Date Comments Transition Of Care 11/22/2023 [employer] nonres ponse single outreach Reason Comments Call From ER Dr. Espinosa Reason Comments Appointment Reason Onset Date Comments Refill Request 12/04/2023 Reason Comments Home Care FYI; Pt missed visit today. Not home Reason Onset Date Comments Refill Request 12/12/2023 Reason Comments Permanent Pacemaker Reason Comments Patient Update Medication Question Reason Comments Patient Question Reason Comments ED Follow-up [place] [facility] follow up Reason Comments Remote Pacemaker Follow Up Reason Onset Date Comments Population Health Navigation Outreach 07/01/2024 [facility] [place] [facility] Reason Onset Date Comments Refill Request 07/18/2024 Reason Onset Date Comments Population Health Navigation Outreach 08/01/2024 [facility] [place] [facility] Reason Onset Date Comments Population Health Navigation Outreach 08/01/2024 Opened In Error 08/01/2024 Reason Onset Date Comments Population Health Navigation Outreach 09/02/2024 [facility] [place] [facility] Reason Comments Cardiac Clearance Reason Comments CARD Follow Up Annual Reason Onset Date Comments Refill Request 10/15/2024 Care Teams (unrecognized sec tion and content) 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 Relationship Specialty Start Date End Date Carmen Johnson MD [address] [place], [place] [id number] PCP - General Internal Medicine 08/11/16 Fatemeh Simpson, [facility] [address] [place], [place] [id number] Pharmacist Pharmacy 03/25/20 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 Relationship Specialty Start Date End Date Carmen Johnson MD [address] [place] [address] PCP - General Internal Medicine 08/11/16 [facility] [address] [place] [address] Pharmacist Pharmacy 03/25/20 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 Relationship Specialty Start Date End Date Carmen Johnson MD [address] [facility] [place] [address] PCP - General Internal Medicine 08/11/16 [facility], [facility] [address] [facility] [place] [address] Pharmacist Pharmacy 03/25/20 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 Relationship Specialty Start Date End Date Carmen Johnson MD [address] [facility] [place] [address] PCP - General Internal Medicine 08/11/16 [facility], [facility] [address] [facility] [place] [address] Pharmacist Pharmacy 03/25/20 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 Relationship Specialty Start Date End Date Carmen Johnson MD [address] [facility] [place] [address] PCP - General Internal Medicine 08/11/16 [facility], [facility] [address] [place] [address] Pharmacist Pharmacy 03/25/20 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 Relationship Specialty Start Date End Date Carmen Johnson MD [address] [facility] [place] [address] PCP - General Internal Medicine 08/11/16 [facility], [facility] [address] [place] [address] Pharmacist Pharmacy 03/25/20 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 Relationship Specialty Start Date End Date Carmen Johnson MD [address] [facility] [place] [address] PCP - General Internal Medicine 08/11/16 [facility], [facility] [address] [facility] [place] [address] Pharmacist Pharmacy 03/25/20 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 Relationship Specialty Start Date End Date Carmen Johnson MD [address] [facility] [place] [address] PCP - General Internal Medicine 08/11/16 [facility], [facility] [address] [facility] [place] [address] Pharmacist Pharmacy 03/25/20 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 Relationship Specialty Start Date End Date Carmen Johnson MD [address] [facility] [place] [address] PCP - General Internal Medicine 08/11/16 [facility], [facility] [address] [facility] [place] [address] Pharmacist Pharmacy 03/25/20 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 Carmen Johnson MD Family Provider Active Dr. Carmen Johnson MD Primary Care Provider Active Team Status: Inactive Member Role Status Dates Dr. Carmen Johnson MD Primary Care Provider Active Dr. Dave Hill DO Attending Provider, Sarath oquendo Active Team Status: Inactive Member Role Status Dates Dr. Carmen Johnson MD Primary Care Provider Active Dr. Nabor Santos DO Attending Provider, Emergency Pr ovider Active Team Status: Active Member Role Status Dates Dr. Carmen Johnson MD Primary Care Provider Active Dr. Ezequiel Dent MD Emergency Provider Active Dr. Mitch Sosa MD Admit Provider, Attending Provi carmen Active Team Status: Active Member Role Status Dates Dr. Carmen Johnson MD Primary Care Provider Active Dr. Ezequiel [place] MD Emergency Provider Active Dr. Mitch Sosa MD Admit Provider, R eferring Provider, Other Provider Active Dr. Susan Isidro MD Attending Provider Active Team Status: Active Member Role Status Dates Dr. Carmen Johnson MD Primary Care Provider Active Dr. Ezequiel Dent MD Emergency Provider Active Dr. Mitch Sosa MD Admit Provider, Other Provider Active Dr. Polo Rincon DO Attending Provider Active Team Status: Active Member Role Status Dates Dr. Carmen Johnson MD Primary Care Provider Active Dr. Ezequiel Dent MD Emergency Provider Active Dr. Mitch Sosa MD Admit Provider, A ttending Provider, Other Provider Active Team Status: Active Member Role Status Dates Dr. Carmen Johnson MD Primary Care Provider Active Dr. Ezequiel Dent MD Emergency Provider Active Dr. Mitch Sosa MD Admit Provider, Other Provider Active ARUN Denney-Jason Attending Provider Active Team Status: Active Member Role Status Dates Dr. Carmen Johnson MD Primary Care Provider Active Dr. Ezequiel Dent MD Emergency Provider Active Dr. Mitch Sosa MD Admit Provider, Other Provider Active Dr. Gage Shah MD Attending Provider, Other Provider Active Team Status: Active Member Role Status Dates Dr. Carmen Johnson MD Primary Care Provider Active Dr. Ezequiel Dent MD Emergency Provider Active Dr. Mitch Sosa MD Admit Provider, Other Provider Active Dr. Gage Shah MD Other Provider Active ARUN Denney-C Attending Provider Active Team Status: Inactive Member Role Status Dates Dr. Carmen Johnson MD Primary Care Provider Active Dr. Ezequiel Dent MD Emergency Provider Active Dr. Mitch Sosa MD Admit Provider, Attending Provi carmen Active Dr. 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 Relationship Specialty Start Date End Date Carmen Johnson MD [address] [facility] [place] [address] PCP - General Internal Medicine 08/11/16 Fatemeh Simpson, [facility] [address] [facility] [place] [address] Pharmacist Pharmacy 03/25/20 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 Relationship Specialty Start Date End Date Carmen Johnson MD [address] [facility] [place] [address] PCP - General Internal Medicine 08/11/16 RjFatemeh, [facility] [address] [facility] [place] [address] Pharmacist Pharmacy 03/25/20 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 Relationship Specialty Start Date End Date Carmen Johnson MD [address] [facility] [place] [address] PCP - General Internal Medicine 08/11/16 Fatemeh Simpson, [facility] [address] [facility] [place] [address] Pharmacist Pharmacy 03/25/20 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 Relationship Specialty Start Date End Date Carmen Johnson MD [address] [facility] [place] [address] PCP - General Internal Medicine 08/11/16 RjFatemeh, [facility] [address] [facility] [place] [address] Pharmacist Pharmacy 03/25/20 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 Relationship Specialty Start Date End Date Carmen Johnson MD [address] [facility] [place] [address] PCP - General Internal Medicine 08/11/16 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 Relationship Specialty Start Date End Date Carmen Johnson MD [address] [facility] [place] [address] PCP - General Internal Medicine 08/11/16 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 Relationship Specialty Start Date End Date Carmen Johnson MD [address] [facility] [place] [address] PCP - General Internal Medicine 08/11/16 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 Relationship Specialty Start Date End Date Carmen Johnson MD [address] [facility] [place] [address] PCP - General Internal Medicine 08/11/16 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 Relationship Specialty Start Date End Date Carmen Johnson MD [address] [facility] [place] [address] PCP - General Internal Medicine 08/11/16 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 Relationship Specialty Start Date End Date Carmen Johnson MD [address] [facility] [place] [address] PCP - General Internal Medicine 08/11/16 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 Relationship Specialty Start Date End Date Carmen Johnson MD [address] [facility] [place] [address] PCP - General Internal Medicine 08/11/16 Corwin Orellana DO [address] [place] [address] Referring 11/15/23 Carmen Johnson MD [address] [place] [address] Home Care Provider Internal Medicine 11/15/23 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 Relationship Specialty Start Date End Date Carmen Johnson MD [address] [place] [address] PCP - General Internal Medicine 08/11/16 Corwin Orellana DO 1 [place] [address] Referring 11/15/23 Carmen Johnson MD [address] [place] [address] Home Care Provider Internal Medicine 11/15/23 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 Relationship Specialty Start Date End Date Carmen Johnson MD [address] [place] [address] PCP - General Internal Medicine 08/11/16 Corwin Orellana DO [address] [place] [address] Referring 11/15/23 Carmen Johnson MD [address] [place] [address] Home Care Provider Internal Medicine 11/15/23 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 Relationship Specialty Start Date End Date Carmen Johnson MD [address] [place] [address] PCP - General Internal Medicine 08/11/16 [facility], [address] [place], [place] [id number] Referring 11/15/23 Carmen Johnson MD [address] [place] [address] Home Care Provider Internal Medicine 11/15/23 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 Relationship Specialty Start Date End Date Carmen Johnson MD [address] [place] [address] PCP - General Internal Medicine 08/11/[address] [facility] [address] [place] [address] Referring 11/15/23 Carmen Johnson MD [address] [place] [address] Home Care Provider Internal Medicine 11/15/23 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 Relationship Specialty Start Date End Date Carmen Johnson MD [address] [place] [address] PCP - General Internal Medicine 08/11/[address] [facility] [address] [place], [place] [id number] Referring 11/15/23 Carmen Johnson MD [address] [place] [address] Home Care Provider Internal Medicine 11/15/23 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 Relationship Specialty Start Date End Date Carmen Johnson MD [address] [place] [address] PCP - General Internal Medicine 08/11/16 Corwin Orellana DO [address] [facility] [place] [id number] Referring 11/15/23 Carmen Johnson MD [address] [place] [address] Home Care Provider Internal Medicine 11/15/23 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 Relationship Specialty Start Date End Date Carmen Johnson MD [address] [place] [address] PCP - General Internal Medicine 08/11/16 Corwin Orellana DO [address] [place] [address] Referring 11/15/23 Carmen Johnson MD [address] [place] [address] Home Care Provider Internal Medicine 11/15/23 ProviderАлександр MD Teachers Assistant 11/15/23 12/15/23 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 Relationship Specialty Start Date End Date Carmen Johnson MD [address] [place] [address] PCP - General Internal Medicine 08/11/16 Corwin Orellana DO 1 [facility] [place] [id number] Referring 11/15/23 Carmen Johnson MD [address] [place] [address] Home Care Provider Internal Medicine 11/15/23 Александр Daniels MD Teachers Assistant 11/15/23 12/15/23 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 Relationship Specialty Start Date End Date Carmen Johnson MD [address] [place] [address] PCP - General Internal Medicine 08/11/16 [facility], [address] [place], [place] [id number] Referring 11/15/23 Carmen Johnson MD [address] [place] [address] Home Care Provider Internal Medicine 11/15/23 Александр Daniels MD Teachers Assistant 11/15/23 12/15/23 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 Relationship Specialty Start Date End Date Carmen Johnson MD [address] [place], [place] [address]61 PCP - General Internal Medicine 08/11/16 [facility] 1 [place] [address] Referring 11/15/23 Carmen Johnson MD [address] [place], [place] [address]671 Home Care Provider Internal Medicine 11/15/23 Александр Daniels MD Teachers Assistant 11/15/23 12/15/23 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 Relationship Specialty Start Date End Date Carmen Johnson MD [address] [place], [place] 823481 PCP - General Internal Medicine 08/11/16 Corwin Orellana DO 1 [place] [address] Referring 11/15/23 Carmen Johnson MD [address] [place], [place] 750981 Home Care Provider Internal Medicine 11/15/23 Александр Daniels MD Teachers Assistant 11/15/23 12/15/23 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 Relationship Specialty Start Date End Date Carmen Johnson MD [address] [place], [place] [address] PCP - General Internal Medicine 08/11/16 [facility] 1 [place] [address] Referring 11/15/23 Carmen Johnson MD [address] [place], [place] 067231 Home Care Provider Internal Medicine 11/15/23 Александр Daniels MD Teachers Assistant 11/15/23 12/15/23 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 Relationship Specialty Start Date End Date Carmen Johnson MD [address] [place], [place] [address]381 PCP - General Internal Medicine 08/11/16 Corwin Orellana DO 1 [place] [address] Referring 11/15/23 Carmen Johnson MD [address] [place], [place] 838431 Home Care Provider Internal Medicine 11/15/23 Александр Daniels MD Teachers Assistant 11/15/23 12/15/23 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 Relationship Specialty Start Date End Date Carmen Johnson MD [address] [place] [address] PCP - General Internal Medicine 08/11/16 Corwin Orellana, [address] [place] [address] Referring 11/15/23 Carmen Johnson MD [address] [place] [address] Home Care Provider Internal Medicine 11/15/23 Александр Daniels MD Teachers Assistant 11/15/23 12/15/23 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 Relationship Specialty Start Date End Date Carmen Johnson MD [address] [place] [address] PCP - General Internal Medicine 08/11/[address] [facility] [address] [place] [address] Referring 11/15/23 Carmen Johnson MD [address] [place] [address] Home Care Provider Internal Medicine 11/15/23 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 Relationship Specialty Start Date End Date Carmen Johnson MD [address] [place] [address] PCP - General Internal Medicine 08/11/16 Corwin Orellana DO 1 [place] [address] Referring 11/15/23 Carmen Johnson MD [address] [place] [address] Home Care Provider Internal Medicine 11/15/23 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 Relationship Specialty Start Date End Date Camren Johnson MD [address] [place] [address] PCP - General Internal Medicine 08/11/16 Corwin Orellana DO 1 [place] [address] Referring 11/15/23 Carmen Johnson MD [address] [place] [address] Home Care Provider Internal Medicine 11/15/23 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 Relationship Specialty Start Date End Date Carmen Johnson MD [address] [place], [place] 536541 PCP - General Internal Medicine 08/11/16 Corwin Orellana DO 1 [place] [address] Referring 11/15/23 Carmen Johnson MD [address] [place] [address] Home Care Provider Internal Medicine 11/15/23 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 Relationship Specialty Start Date End Date Carmen Johnson MD [address] [place], [place] [address]3751 PCP - General Internal Medicine 08/11/16 Corwin Orellana, [address] [place] [facility] [place], [place] [id number] Referring 11/15/23 Carmen Johnson MD [address] [place], [place] 401461 Home Care Provider Internal Medicine 11/15/23 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 Relationship Specialty Start Date End Date Carmen Johnson MD [address] [place], [place] 0[address]291 PCP - General Internal Medicine 08/11/16 Corwin Orellana DO [address] [place] [facility] [place], [place] [id number] Referring 11/15/23 Carmen Johnson MD [address] [place], [place] [address]18611 Home Care Provider Internal Medicine 11/15/23 Jordyn Muro, WAREHOUSE OPERATIONS ASSOCIATE.PERLITE GRINDER [address] [place] [address] Teachers Assistant Internal Medicine 05/20/24 Lissett Devries, WAREHOUSE OPERATIONS ASSOCIATE.LACQUER COATER [address] [place] [address] Teachers Assistant Internal Medicine 05/20/24 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 Relationship Specialty Start Date End Date Carmen Johnson MD [address] [place] [address] PCP - General Internal Medicine 08/11/16 Corwin Orellana DO 1 [place] [address] Referring 11/15/23 Carmen Johnson MD [address] [place] [address] Home Care Provider Internal Medicine 11/15/23 Jordyn Muro, WAREHOUSE OPERATIONS ASSOCIATE.PERLITE GRINDER [address] [place] [address] Teachers Assistant Internal Medicine 05/20/24 Lissett Devries WAREHOUSE OPERATIONS ASSOCIATE.LACQUER COATER [address] [place] [address] Teachers Assistant Internal Medicine 05/20/24 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 Relationship Specialty Start Date End Date Carmen Johnson MD [address] [place] [address] PCP - General Internal Medicine 08/11/16 Corwin Orellana DO 1 [place] [address] Referring 11/15/23 Carmen Johnson MD [address] [place] [address] Home Care Provider Internal Medicine 11/15/23 Jordyn Muro, WAREHOUSE OPERATIONS ASSOCIATE.PERLITE GRINDER [address] [place] [address] Teachers Assistant Internal Medicine 05/20/24 Lissett Devries WAREHOUSE OPERATIONS ASSOCIATE.LACQUER COATER [address] [place] [address] Teachers Assistant Internal Medicine 05/20/24 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 Relationship Specialty Start Date End Date Carmen Johnson MD [address] [place], [place] 894481 PCP - General Internal Medicine 08/11/16 Corwin Orellana DO [address] [place], [place] [id number] Referring 11/15/23 Carmen Johnson MD [address] [place], [place] 132661 Home Care Provider Internal Medicine 11/15/23 Jordyn Muro, WAREHOUSE OPERATIONS ASSOCIATE.PERLITE GRINDER [address] [place] [address] Teachers Assistant Internal Medicine 05/20/24 Lissett Devries, WAREHOUSE OPERATIONS ASSOCIATE.LACQUER COATER [address] [place] [address] Teachers Assistant Internal Medicine 05/20/24 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 Relationship Specialty Start Date End Date Carmen Johnson MD [address] [place] [address] PCP - General Internal Medicine 08/11/16 [facility], [address] [place] [address] Referring 11/15/23 Carmen Johnson MD [address] [place] [address] Home Care Provider Internal Medicine 11/15/23 Jordyn Muro, WAREHOUSE OPERATIONS ASSOCIATE.PERLITE GRINDER [address] [place] [address] Teachers Assistant Internal Medicine 05/20/24 Lissett Devries APRN.LACQUER COATER [address] [place] [address] Teachers Assistant Internal Medicine 05/20/24 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 Relationship Specialty Start Date End Date Carmen Johnson MD [address] [place] [address] PCP - General Internal Medicine 08/11/16 Corwin Orellana DO [address] [place], [place] [id number] Referring 11/15/23 Carmen Johnson MD [address] [place] [address] Home Care Provider Internal Medicine 11/15/23 Jordyn Muro APRN.PERLITE GRINDER [address] [place] [address] Teachers Assistant Internal Medicine 05/20/24 Lissett Devries APRN.LACQUER COATER [address] [place] [address] Teachers Assistant Internal Medicine 05/20/24 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 Relationship Specialty Start Date End Date Carmen Johnson MD [address] [place], [place] 618371 PCP - General Internal Medicine 08/11/16 Corwin Orellana DO [address] [place], [place] [id number] Referring 11/15/23 Carmen Johnson MD [address] [place] [address] Home Care Provider Internal Medicine 11/15/23 Jordyn Muro, RODNEY.PERLITE GRINDER [address] [place] [address] Teachers Assistant Internal Medicine 05/20/24 Lissett Devries WAREHOUSE OPERATIONS ASSOCIATE.LACQUER COATER [address] [place] [address] Teachers Assistant Internal Medicine 05/20/24 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 Relationship Specialty Start Date End Date Carmen Johnson MD [address] [place] [address] PCP - General Internal Medicine 08/11/16 Corwin Orellana DO 1 [place] [address] Referring 11/15/23 Carmen Johnson MD [address] [place] [address] Home Care Provider Internal Medicine 11/15/23 Jordyn Muro, RODNEY.PERLITE GRINDER [address] [place] [address] Teachers Assistant Internal Medicine 05/20/24 Lissett Devries APRN.LACQUER COATER [address] [place] [address] Teachers Assistant Internal Medicine 05/20/24 08/30/24 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 Relationship Specialty Start Date End Date Carmen Johnson MD [address] [place] [address] PCP - General Internal Medicine 08/11/16 Corwin Orellana DO 1 [place] [address] Referring 11/15/23 Carmen Johnson MD [address] [place] [address] Home Care Provider Internal Medicine 11/15/23 Jordyn Muro APRN.PERLITE GRINDER [address] [place] [address] Teachers Assistant Internal Medicine 05/20/24 Lissett Devries APRN.LACQUER COATER [address] [place] [address] Teachers Assistant Internal Medicine 05/20/24 08/30/24 Lissett Devries APRN.LACQUER COATER [address] [place] [address] Teachers Assistant Internal Medicine 09/03/24 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 Relationship Specialty Start Date End Date Carmen Johnson MD [address] [place] [address] PCP - General Internal Medicine 08/11/16 Corwin Orellana DO 1 [place] [address] Referring 11/15/23 Carmen Johnson MD [address] [place], [place] 9[address]21 Home Care Provider Internal Medicine 11/15/23 Jordyn Muro, WAREHOUSE OPERATIONS ASSOCIATE.PERLITE GRINDER [address] [facility] [place] [address] Teachers Assistant Internal Medicine 05/20/24 Lissett Devries APRN.LACQUER COATER [address] [facility] [place], [place] [address] Teachers Assistant Internal Medicine 09/03/24 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 Relationship Specialty Start Date End Date Carmen Johnson MD [address] [facility] [place], [place] [address] PCP - General Internal Medicine 08/11/16 Corwin Orellana DO 1 [place], [place] [id number] Referring 11/15/23 Carmen Johnson MD [address] [facility] [place] [address] Home Care Provider Internal Medicine 11/15/23 Jordyn Muro, WAREHOUSE OPERATIONS ASSOCIATE.PERLITE GRINDER [address] [facility] [place] [address] Teachers Assistant Internal Medicine 05/20/24 Lisestt Devries WAREHOUSE OPERATIONS ASSOCIATE.LACQUER COATER [address] [facility] [place] [address] Teachers Assistant Internal Medicine 09/03/24 Team Status: Active Member Role Status Dates Dr. Carmen Johnson MD Family Provider Active Dr. Gill Velez MD Primary Care Provider Active Team Status: Inactive Member Role Status Dates Dr. Carmen Johnson MD Primary Care Provider Active Start: September 25, 2024 End: September 25, 2024 Dr. Carmen Johnson MD Referring Provider Active Start: September 25, 2024 End: September 25, 2024 ARUN Macias Attending Provider Active St art: September 25, 2024 End: September 25, 2024 Team Status: Inactive Member Role Status Dates Dr. Gill Velez MD Primary Care Provider Active Start: September 25, 2024 End: September 25, 2024 ARUN Macias Attending Provider Active St art: September 25, 2024 End: September 25, 2024 ARUN Macias Referring Provider Active St art: September 25, 2024 End: September 25, 2024 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 Relationship Specialty Start Date End Date Ryan Kamara [address] [address] PCP - General Family Medicine 10/03/24 Corwin Orellana DO [address] [place] [address] Referring 11/15/23 Carmen Johnson MD [address] [place] [address] Home Care Provider Internal Medicine 11/15/23 Jordyn Muro, WAREHOUSE OPERATIONS ASSOCIATE.PERLITE GRINDER [address] [place] [address] Teachers Assistant Internal Medicine 05/20/24 Lissett Devries, WAREHOUSE OPERATIONS ASSOCIATE.LACQUER COATER [address] [place] [address] Teachers Assistant Internal Medicine 09/03/24 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 Relationship Specialty Start Date End Date Carmen Johnson MD [address] [place] [address] PCP - General Internal Medicine 08/11/16 10/02/24 Ryan Kamara [address] [address] PCP - General Family Medicine 10/03/24 Corwin Orellana DO [address] [place] [address] Referring 11/15/23 Carmen Johnson MD [address] [place] [address] Home Care Provider Internal Medicine 11/15/23 Jordyn Muro, RODNEY.PERLITE GRINDER [address] [place] [address] Teachers Assistant Internal Medicine 05/20/24 Lissett Devries WAREHOUSE OPERATIONS ASSOCIATE.LACQUER COATER [address] [place] [address] Teachers Assistant Internal Medicine 09/03/24 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 Relationship Specialty Start Date End Date Ryan Kamara [address] [address] PCP - General Family Medicine 10/03/24 Corwin Orellana DO 1 [place] [address] Referring 11/15/23 Carmen Johnson MD [address] [place] [address] Home Care Provider Internal Medicine 11/15/23 Jordyn Muro, WAREHOUSE OPERATIONS ASSOCIATE.PERLITE GRINDER [address] [place] [address] Teachers Assistant Internal Medicine 05/20/24 Lissett Devries APRN.LACQUER COATER [address] [place] [address] [facility] Internal Medicine 09/03/24 Team Status: Active Member Role Status Dates Dr. Gill Velez MD Primary Care Provider Active Team Status: Inactive Member Role Status Dates Dr. Carmen Johnson MD Referring Provider Active Start: November 18, 2024 End: November 18, 2024 Dr. Gill Velez MD Primary Care Provider Active Start: November 18, 2024 End: November 18, 2024 Dr. Gill Velez MD Attending Provider Active Start: November 18, 2024 End: November 18, 2024 Team Status: Active Member Role Status Dates Dr. Gill Velez MD Primary Care Provider Active Start: November 18, 2024 Dr. Gill Velez MD Attending Provider Active Start: November 18, 2024 Dr. Gill Velez MD Referring Provider Active Start: November 18, 2024 Team Status: Inactive Member Role Status Dates Dr. Gill Velez MD Primary Care Provider Active Start: November 18, 2024 End: November 18, 2024 Dr. Gill Velez MD Attending Provider Active Start: November 18, 2024 End: November 18, 2024 Dr. Gill Velez MD Referring Provider Active Start: November 18, 2024 End: November 18, 2024 Goals (unrecognized section and content) Goals may be documented in a n alternate sectionGoals may be documented in an alternate sectionGoals may be documented in an alternate sectionGoals may be documented in an alternate sectionGoals may be documented in an alternate sectionGoals may be documented in an alternate section INFORMATION SOURCE (unrecogn ized section and content) DATE CREATED AUTHOR 10/20/2024 [facility] DATE CREATED AUTHOR AUTHOR'S ORGANIZ ATION 11/10/2024 [facility] DATE CREATED AUTHOR AUTHOR'S ORGANIZ ATION 11/22/2024 [facility] FOR RECORDS PERTAINING TO PATIENTS WHO ARE OR HAVE BEEN ENROLLED IN A CHEMICAL DEPENDENCY/SUBSTANCEABUSE PROGRAM, SOME INFORMATION MAY BE OMITTED. This clinical summary was aggregated from multiple sources. Caution should be exercised in using it in the provision of clinical care. This summary normalizes information from multiple sources, and as a consequence, information in this document may materially change the coding, format and clinical context of patient data. In addition, data may be omitted in some cases. CLINICAL DECISIONS SHOULD BE BASED ON THE PRIMARY CLINICAL RECORDS. [facility], [facility]. provides no warranty or guarantee of the accuracy or completeness of information in this document.
--- NOTE | 2025-05-18 18:00 | RAD_ITS ---
PROCEDURE: CHEST PA AND LATERAL 05/18/2025 REASON FOR EXAM: CHEST PAIN TECHNIQUE: Procedure Code: RADCXR Modality: DX Procedure: CHEST PA AND LATERAL COMPARISON: 11/22/2023 FINDINGS: Left chest pacer. Bibasilar opacities likely subsegmental atelectasis however pneumonia or aspiration not entirely excluded. Pulmonary emphysema. Underlying chronic lung disease. No pleural effusion or pneumothorax. Cardiac silhouette is within normal limits. No acute fractures. RAD/Chest PA and Lateral IMPRESSION: Bibasilar opacities likely subsegmental atelectasis however pneumonia or aspira tion not entirely excluded. Reading Location: [id number]
--- NOTE | 2025-05-18 18:00 | EKG12_ITS ---
Test Reason : CP Blood Pressure : */* mmHG Vent. Rate : 109 BPM Atrial Rate : 109 BPM P-R Int : 126 ms QRS Dur : 142 ms QT Int : 386 ms P-R-T Axes : 66 258 61 degrees QTcB Int : 519 ms Atrial-sensed ventricular-paced rhythm Abnormal ECG Confirmed by Bryant Pereyra ([id number]), editorial clerk [place] ([id number]) on 05/20/2025 8:34:23 AM Referred By: Confirmed By: Bryant Pereyra
--- NOTE | 2025-05-18 18:05 | ED.VIS.CHEST ---
HPI History of Present Illness Chief Complaint: Chest Pain Narrative Narrative: Chief complaint and HPI: 75-year-old female with past medical history of HTN, HLD, DM, pacemaker presents for evaluation of midsternal chest pain. Patient states she periodically gets chest pain shortly after eating. She has never followed up with a physician for this. Patient states that she was at [employer] and just finished eating a turkey sandwich when she developed midsternal chest pain that she describes as sharp. States she then had a belching episode and drink some water. States symptoms have already improved. She states this feels like her typical episodes. She denies any fever, chills, shortness of breath, cough, abdominal pain, nausea, vomiting. EMS gave 324 of aspirin prior to arrival. Patient is unsure why she got a pacemaker in the past. 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 Review of systems: See HPI Medications: As listed on the chart Allergies: As listed on the chart PFSH: Per chart Vital signs: As listed on the chart. Reviewed. Physical exam: Gen: A&O x3, NAD Head: Normocephalic, atraumatic Eyes: No sclera icterus, conjunctiva clear, PERRL ENT: Moist mucous membranes Neck: Trachea midline, No JVD CV: Mildly tachycardic , no murmurs, no peripheral edema, pacemaker without overlying cellulitis Resp: Lungs CTA BL, no w/r/c GI: Abd soft, non-distended, non-tender, no r/r/g Musc: Full ROM, no deformity Skin: Warm, dry Neuro: Alert, oriented, grossly intact, sensation intact Psych: Cooperative, appropriate mood and affect [facility] Medical History Vision problems Vascular disease H/O irritable bowel syndrome Hyperlipidemia Frequent headaches Glaucoma Cataracts, bilateral Partial small bowel obstruction Carotid stenosis, bilateral GERD (gastroesophageal reflux disease) Cardiac murmur Osteoarthritis HTN (hypertension) Vertigo Home Medications ?Medication ?Instructions ?Recorded ?Last Taken ?Type hydralazine 25 mg tablet 25 mg PO TID #270 tabs 10/16/24 05/18/25 Rx Allergy/AdvReac Type Severity Reaction Status Date / Time furosemide (From Lasix) Allergy Hives Verified 05/18/25 17:50 Sulfa (Sulfonamide Allergy Hives Verified 05/18/25 17:50 Antibiotics) Family History (Updated 11/18/24 @ 13:[address] Gill Velez MD) Mother Heart disease Hypertension Father Heart disease Hypertension Diabetes Brother Diabetes Cancer esophageal Surgical History History of pacemaker H/O: hysterectomy History of laparoscopy History of dilation and curettage Social History (Updated 11/18/24 @ 13:[address] 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 and animals: No sexually active: Yes Smoking Status: Never smoker alcohol intake: current alcohol intake frequency: holidays/special occasions only substance use type: does not use caffeine: No what type of physical activity do you participate in: walking frequency: daily seatbelt use: always do you feel safe at home: Yes EXAM Physical Exam Const Vital Signs: 05/18/25 17:48 05/18/25 17:53 05/18/25 18:42 Temperature 98.5 F Temperature Source Oral Pulse Rate 101 H 97 Respiratory Rate 18 24 H Respiratory Effort Normal Blood Pressure 164/72 H Blood Pressure Mean 102 Blood Pressure Source Blood Pressure Position Blood Pressure Location Pulse Ox 98 97 Oxygen Delivery Method Room Air Oxygen Flow Rate (L/min) 05/18/25 18:45 05/18/25 19:00 05/18/25 19:46 Temperature Temperature Source Pulse Rate 99 110 H Respiratory Rate 18 21 H Respiratory Effort Blood Pressure 153/77 H 141/65 H Blood Pressure Mean 100 90 Blood Pressure Source Blood Pressure Position Blood Pressure Location Pulse Ox 96 94 83 Oxygen Delivery Method Room Air Room Air Oxygen Flow Rate (L/min) 05/18/25 19:46 05/18/25 20:00 05/18/25 20:57 Temperature 97.7 F L Temperature Source Oral Pulse Rate 91 65 Respiratory Rate 20 H 20 H Respiratory Effort Blood Pressure 135/60 H 123/101 H Blood Pressure Mean 85 108 Blood Pressure Source Monitor Blood Pressure Position Semi-Fowlers Blood Pressure Location Right Arm Pulse Ox 97 98 100 Oxygen Delivery Method Nasal Cannula Nasal Cannula Nasal Cannula Oxygen Flow Rate (L/min) 3 2 2 05/18/25 21:00 05/18/25 21:12 05/18/25 22:00 Temperature 98.1 F Temperature Source Oral Pulse Rate 97 88 87 Respiratory Rate 20 H 19 H 19 H Respiratory Effort Blood Pressure 126/54 H 129/64 H 122/56 H Blood Pressure Mean 78 85 78 Blood Pressure Source Monitor Blood Pressure Position Semi-Fowlers Blood Pressure Location Left Arm Pulse Ox 98 92 93 Oxygen Delivery Method Nasal Cannula Nasal Cannula Nasal Cannula Oxygen Flow Rate (L/min) 2 3 2 05/18/25 22:12 05/18/25 22:40 05/18/25 22:48 Temperature 98.1 F 98.1 F 98.2 F Temperature Source Oral Oral Oral Pulse Rate 82 82 78 Respiratory Rate 19 H 17 16 Respiratory Effort Blood Pressure 122/56 H 127/56 H 138/70 H Blood Pressure Mean 78 79 92 Blood Pressure Source Monitor Monitor Monitor Blood Pressure Position Semi-Fowlers Semi-Fowlers Semi-Fowlers Blood Pressure Location Left Arm Left Arm Left Arm Pulse Ox 10 100 98 Oxygen Delivery Method Nasal Cannula Nasal Cannula Nasal Cannula Oxygen Flow Rate (L/min) 2 2 2 05/18/25 23:03 Temperature 98.4 F Temperature Source Oral Pulse Rate 82 Respiratory Rate 19 H Respiratory Effort Blood Pressure 138/61 H Blood Pressure Mean 86 Blood Pressure Source Monitor Blood Pressure Position Supine Blood Pressure Location Left Arm Pulse Ox 100 Oxygen Delivery Method Nasal Cannula Oxygen Flow Rate (L/min) 2 MDM MDM MDM Narrative Medical decision making narrative: 75-year-old female with past medical history of HTN, HLD, DM, pacemaker presents for evaluation of midsternal chest pain. Patient states she periodically gets chest pain shortly after eating. She has never followed up with a physician for this. Patient states that she was at [employer] and just finished eating a turkey sandwich when she developed midsternal chest pain that she describes as sharp. States she then had a belching episode and drink some water. States symptoms have already improved. She states this feels like her typical episodes. EMS gave 324 of aspirin prior to arrival. Patient is unsure why she got a pacemaker in the past. 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 On presentation, patient no acute distress. Differential diagnosis includes but is not limited to esophageal spasm, GERD, hiatal hernia, ACS, arrhythmia, electrolyte abnormality, suspect less likely PE. Patient already received aspirin prior to arrival. NS bolus and Pepcid ordered. Cardiac/GI workup ordered. On chart review, patient's last echocardiogram was 03/06/2019 in which she had an EF of 75%. CBC without leukocytosis. Patient has anemia of 6.2. Platelets unremarkable. Patient not endorsing any GI bleeding. On chart review, patient has a history of anemia. Will repeat hemoglobin to assess if this is correct. Repeat hemoglobin 5.5. Patient states that she has not had any bloody bowel movements. Rectal exam was performed. Normal external examination. No evidence of hemorrhoids or fissures. Normal tone and sensation. No masses, fluctuance, or tenderness. No pain out of proportion. Stool light brown on gloved finger. Patient will require blood transfusion. She confirmed understand the plan. 2 units ordered. Coagulation panel unremarkable. D-dimer elevated at 0.96. Cannot rule out PE. Patient had recurrent chest pain. Morphine ordered. CTA chest ordered to assess for PE/dissection. CMP relatively unremarkable. Lipase unremarkable. Troponin 45. Will obtain delta. Stool occult positive. CT abdomen and pelvis ordered. Pacemaker interrogation without any events for today. Last event was from April 22. Repeat troponin 44. CT abdomen pelvis shows no PE. Patchy multifocal parenchymal airspace opacities with innumerable solid nodules bilaterally measuring up to 9 mm in the right upper lobe. Diffuse interlobular septal thickening. Inflammatory/metastatic/neoplastic etiologies must be considered. CT abdomen pelvis shows no acute process. Patient not endorsing any pneumonia type symptoms at this 5 time and therefore I do not think any antibiotics are needed. Will run it by the hospitalist team as she will need admitted for acute on chronic anemia and GI bleed. Patient was updated of all results and confirmed understand the plan. Hospitalist accept admission. They agree with no antibiotics at this time. EKG: Interpreted by me/EM physician: EKG shows atrial sensed ventricular paced rhythm. Heart rate 109. No QTc prolongation. This is similar to her previous EKG in November 2023. She was atrial sensed and paced at that time. Diagnostic: Interpreted by me/EM physician: Chest x-ray was personally reviewed and interpreted by me, ED physician. Pacemaker visualized. Chronic lung changes. COPD. No pneumothorax, effusion, consolidation, cardiomegaly. Radiology in agreement although bibasilar opacities likely subsegmental atelectasis however pneumonia or aspiration not entirely excluded per the report. Impression: 1. Chest pain, unclear etiology 2. Acute on chronic anemia requiring blood transfusion 3. GI bleed 4. Patchy multifocal parenchymal airspace opacities with innumerable solid nodules bilaterally measuring up to 9 mm in the right upper lobe. Diffuse interlobular septal thickening. Inflammatory/metastatic/neoplastic etiologies must be considered Lab Data Labs: Laboratory Results - last 24 hr 05/18/25 05/18/25 05/18/25 17:50 18:30 19:44 WBC 4.8 RBC 2.93 L Hgb 6.2 L 5.5 L* Hct 22.7 L MCV 77.5 L MCH 21.2 L MCHC 27.3 L RDW Std Deviation 49.5 H RDW Coeff of Rojelio 17.5 H Plt Count 230 MPV 11.3 Immature Gran % (Auto) 0.400 Neut % (Auto) 60.9 Lymph % (Auto) 25.5 Valley % (Auto) 8.1 Eos % (Auto) 3.9 Baso % (Auto) 1.2 H Absolute Neuts (auto) 2.9 Absolute Lymphs (auto) 1.23 Nucleated RBC % 0 PT 13.2 INR 1.0 APTT 28.9 D-Dimer Quant (PE/DVT) 0.96 H* Sodium 139 Potassium 4.1 Chloride 105 Carbon Dioxide 22.1 Anion Gap 12 BUN 20 H Creatinine 1.17 Estim Creat Clear Calc 33.60 L Est GFR (MDRD) Non-Af 49 L BUN/Creatinine Ratio 17.3 Glucose 236 H Calcium 9.8 Total Bilirubin 0.34 AST 15 ALT 8 Alkaline Phosphatase 87 Troponin T High Sens 45 H Troponin T Hi Sens 2 Hr Total Protein 6.9 Albumin 4.2 Globulin 2.7 Albumin/Globulin Ratio 1.5 Lipase 45 Blood Type O NEGATIVE Antibody Screen NEGATIVE Crossmatch See Detail 05/18/25 20:08 WBC RBC Hgb Hct MCV MCH MCHC RDW Std Deviation RDW Coeff of Rojelio Plt Count MPV Immature Gran % (Auto) Neut % (Auto) Lymph % (Auto) Valley % (Auto) Eos % (Auto) Baso % (Auto) Absolute Neuts (auto) Absolute Lymphs (auto) Nucleated RBC % PT INR APTT D-Dimer Quant (PE/DVT) Sodium Potassium Chloride Carbon Dioxide Anion Gap BUN Creatinine Estim Creat Clear Calc Est GFR (MDRD) Non-Af BUN/Creatinine Ratio Glucose Calcium Total Bilirubin AST ALT Alkaline Phosphatase Troponin T High Sens Troponin T Hi Sens 2 Hr 44 H Total Protein Albumin Globulin Albumin/Globulin Ratio Lipase Blood Type Antibody Screen Crossmatch Radiography Diagnostic Testing: Clinical Impression(s) from Imaging Studies Chest X-Ray 05/18/25 18:00 IMPRESSION: Bibasilar opacities likely subsegmental atelectasis however pneumonia or aspiration not entirely excluded. Reading Location: [facility] Abdomen/Pelvis CT 05/18/25 19:27 IMPRESSION: No acute CT process. Chronic changes as detailed above. Reading Location: [facility] Chest CTA 05/18/25 19:27 IMPRESSION: No acute thromboembolic disease. Patchy multifocal parenchymal airspace opacity with innumerable solid nodules bilaterally measuring up to approximately 9 mm in the right upper lobe. Diffuse interlobular septal thickening. Inflammatory, metastatic, neoplastic etiologies must be considered. Reading Location: [facility] Discharge Plan Triage Chief Complaint: Chest Pain ED Provider: eTn Scruggs Dx/Rx/DC Orders Prescriptions: No Action hydralazine 25 mg tablet 25 mg PO TID Qty: 270 1RF Primary Care Provider: Gill Velez Referrals: Gill Velez MD [Primary Care Provider, Internal Medicine] Print Language: Tamazight
[2025-05-18 18:14] LABS: Hematocrit 22.7 % (37-47); Hemoglobin 6.2 g/dL (12.0-15.0); Immature Granulocytes Count 0.020 X10^3/uL (0.0-0.0); Mean Corp Hgb Conc 27.3 g/dL (32-36); Mean Corpuscular Volume 77.5 fL (81-99); Mean Platelet Vol. 11.3 fl (6.2-12.0); NRBC Flagged by Analyzer 0 % (0-5); Platelet Count 230 K/mm3 (150-450); RBC Distribution Width CV 17.5 % (11.6-14.6); RBC Distribution Width SD 49.5 fl (35.1-43.9); Red Blood Count 2.93 M/mm3 (4.2-5.4); White Blood Count 4.8 K/mm3 (4.4-11.0)
[2025-05-18 18:23] LABS: Prothrombin Time (Protime)PT. 13.2 SECONDS (11.7-14.9)
[2025-05-18 18:24] LABS: Partial Thromboplast Time 28.9 Seconds (24.1-36.2)
[2025-05-18] MEDS: Famotidine 200 MG/20 ML MDV 20 MG in 0.9% Normal Saline (Pres. free 8 ML 300 MG IV (18:29)
[2025-05-18] MEDS: 0.9% Normal Saline (1000mL) 1,000 ML 999 ML IV (18:29)
[2025-05-18 18:41] LABS: D-Dimer Quantitative (DVT/PE) 0.96 FEU/ug/m (0.27-0.49); Lipase 45 U/L (13-75); Troponin T High Sensitivity 45 ng/L (<=14)
[2025-05-18 18:44] LABS: Hemoglobin 5.5 g/dL (12.0-15.0)
[2025-05-18 19:12] LABS: AST(SGOT) 15 U/L (<=31); Alanine Aminotransfer ALT/SGPT 8 U/L (<=34); Albumin, Serum 4.2 g/dL (3.4-4.8); Alkaline Phosphatase 87 U/L (35-104); Anion Gap 12 (5-15); BUN 20 mg/dL (4-19); BUN/Creat Ratio 17.3 RATIO (10-20); Calcium,Total 9.8 mg/dL (7.6-11.0); Carbon Dioxide 22.1 mmol/L (21.0-32.0); Chloride 105 mmol/L (98-108); Estimated Creatinine Clearance 33.60 ml/min (50-250); Globulin 2.7 g/dL (2.2-4.2); Glucose 236 mg/dL (70-99); Potassium 4.1 mmol/L (3.3-5.1)
--- NOTE | 2025-05-18 19:27 | CT_ITS ---
PROCEDURE: ABDOMEN/PELVIS W IV CONT ONLY 05/18/2025 REASON FOR EXAM: ANEMIA, CONCERN FOR POSSIBLE GI BLEED TECHNIQUE: Procedure Code: [id number] Modality: CT Procedure: ABDOMEN/PELVIS W IV CONT ONLY Coronal and Sagittal reconstruction series were provided. 100 cc intravenous contrast administered. One or more dose reduction techniques were used (e.g., Automated exposure control, adjustment of the mA and/or kV according to patient size, use of iterative reconstruction technique. RADIATION DOSE SUMMARY: CTDlvol: 7 mGy DLP: 250 mGycm COMPARISON: Reviewed FINDINGS: CT chest separately dictated. Liver is unremarkable. Gallbladder normal. Spleen unremarkable. Adrenals normal. Kidneys demonstrate atrophic changes compatible with chronic medical renal changes. Aorta is nonaneurysmal although demonstrates severe dense atheromatous calcifications throughout its course in the thoracic, and abdominal cavity. Pancreas is normal. Chronic changes of the bowel without evidence of dilation or obstruction. Appendix is not confidently identified. No pathological free fluid. No free air. Osseous structures are intact. Severe degenerative changes. CT/Abdomen/Pelvis W IV Cont ONLY IMPRESSION: No acute CT process. Chronic changes as detailed above. Reading Location: [facility]
--- NOTE | 2025-05-18 19:27 | CT_ITS ---
PROCEDURE: CTA CHEST W/WO CONTRAST 05/18/2025 REASON FOR EXAM: PE/DISSECTION TECHNIQUE: Procedure Code: [id number] Modality: CT Procedure: CTA CHEST W/WO CONTRAST Multiplanar Sagittal and Coronal images were obtained. 100 cc intravenous contrast administered. One or more dose reduction techniques were used (e.g., Automated exposure control, adjustment of the mA and/or kV according to patient size, use of iterative reconstruction technique). RADIATION DOSE SUMMARY: CTDlvol: 9.8 mGy DLP: 484 mGycm COMPARISON: Reviewed FINDINGS: Pulmonary arteries are clear. Patchy multifocal parenchymal airspace opacity with innumerable solid nodules bilaterally measuring up to approximately 9 mm in the right upper lobe. Diffuse interlobular septal thickening. Inflammatory, metastatic, neoplastic etiologies must be considered.. Thoracic inlet is unremarkable. No axillary adenopathy. Prominent multichamber cardiomegaly. Moderate coronary artery calcifications. Diffuse atheromatous calcifications of the aorta throughout its course without aneurysmal disease or evidence of dissection. CT abdomen pelvis dictated separately. CT/CTA Chest W/WO Contrast IMPRESSION: No acute thromboembolic disease. Patchy multifocal parenchymal airspace opacit y with innumerable solid nodules bilaterally measuring up to approximately 9 mm in the right upper lobe. Diffuse interlobul ar septal thickening. Inflammatory, metastatic, neoplastic etiologies must be considered. Reading Location: [facility] [address]
[2025-05-18 20:31] LABS: Troponin T High Sens 2 HR 44 ng/L (<=14)
--- NOTE | 2025-05-18 23:15 | HP.PCM.HOS_ITS ---
HPI - General General Date of Admission: 05/18/25 Date of Service: 05/18/25 Chief Complaint: Chest pain and shortness of breath after eating. No dysphagia HPI Narrative LANA ARMSTRONG, is a 75 F who was brought to ED by EMS for chest pain that started 15 minutes ago while she was eating at [employer]. Patient said she gets this chest pain frequently after eating at home for last 1 month but this time was more persistent and did not relieved with drinking water. She describes chest pain as sharp over left side below clavicle with mild shortness of breath. Denies dizziness lightheadedness or near syncope or syncope. She also gets shortness of breath on exertion/climbing stairs. Denies history of chronic cardiac disease or lung disease. Endorses sometimes burning type chest pain with gastric reflux. Denies any recent EGD or colonoscopy. Vitals by EMS shows patient was tachypneic RR 24 BP 168/82 and heart rate 100/min. Patient was found to be anemic with hemoglobin 5.5 g% and has 1 unit of PRBC started. Stool for occult blood positive. Denies obvious external GI bleed including brown or black stool, hematuria or other external bleeding. [facility] Medical History Vision problems Vascular disease H/O irritable bowel syndrome Hyperlipidemia Frequent headaches Glaucoma Cataracts, bilateral Partial small bowel obstruction Carotid stenosis, bilateral GERD (gastroesophageal reflux disease) Cardiac murmur Osteoarthritis HTN (hypertension) Vertigo Home Medications ?Medication ?Instructions ?Recorded ?Last Taken ?Type hydralazine 25 mg tablet 25 mg PO TID #270 tabs 10/1605/18/25 Rx Allergy/AdvReac Type Severity Reaction Status Date / Time furosemide (From Lasix) Allergy Hives Verified 05/18/25 17:50 Sulfa (Sulfonamide Allergy Hives Verified 05/18/25 17:50 Antibiotics) Family History Mother Heart disease Hypertension Father Heart disease Hypertension Diabetes Brother Diabetes Cancer esophageal Surgical History History of pacemaker H/O: hysterectomy History of laparoscopy History of dilation and curettage Social History adopted: No household members: significant other number of children: 0 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 No fever. No recent URI symptoms HEENT: Reports systems reviewed and no addt'l complaints, except as documented Respiratory/Chest: Shortness of breath on climbing stairs. CVS: Cardiac pacemaker few years ago. Denies MT/cardiac stent Gastrointestinal: Heartburn. Denies coffee ground emesis, hematemesis or vomiting Genitourinary: Denies burning urination or new urinary tract symptoms Musculoskeletal: Denies acute joint pain or limited range of motion. No acute injury Neurologic: Denies seizure-like symptoms. skin: No ulcer. No rash Endocrinology: Reports systems reviewed and no addt'l complaints, except as documented Hematologic/Lymphatic: Reports systems reviewed and no addt'l complaints, except as documented Rest 14 ROS are negative except as mentioned in HPI Vital Signs Vital Signs Vital Signs: 05/18/25 17:48 05/18/25 17:53 05/18/25 18:42 Temperature 98.5 F Temperature Source Oral Pulse Rate 101 H 97 Respiratory Rate 18 24 H Respiratory Effort Normal Blood Pressure 164/72 H Blood Pressure Mean 102 Blood Pressure Source Blood Pressure Position Blood Pressure Location Pulse Ox 98 97 Oxygen Delivery Method Room Air Oxygen Flow Rate (L/min) 05/18/25 18:45 05/18/25 19:00 05/18/25 19:46 Temperature Temperature Source Pulse Rate 99 110 H Respiratory Rate 18 21 H Respiratory Effort Blood Pressure 153/77 H 141/65 H Blood Pressure Mean 100 90 Blood Pressure Source Blood Pressure Position Blood Pressure Location Pulse Ox 96 94 83 Oxygen Delivery Method Room Air Room Air Oxygen Flow Rate (L/min) 05/18/25 19:46 05/18/25 20:00 05/18/25 20:57 Temperature 97.7 F L Temperature Source Oral Pulse Rate 91 65 Respiratory Rate 20 H 20 H Respiratory Effort Blood Pressure 135/60 H 123/101 H Blood Pressure Mean 85 108 Blood Pressure Source Monitor Blood Pressure Position Semi-Fowlers Blood Pressure Location Right Arm Pulse Ox 97 98 100 Oxygen Delivery Method Nasal Cannula Nasal Cannula Nasal Cannula Oxygen Flow Rate (L/min) 3 2 2 05/18/25 21:00 05/18/25 21:12 05/18/25 22:00 Temperature 98.1 F Temperature Source Oral Pulse Rate 97 88 87 Respiratory Rate 20 H 19 H 19 H Respiratory Effort Blood Pressure 126/54 H 129/64 H 122/56 H Blood Pressure Mean 78 85 78 Blood Pressure Source Monitor Blood Pressure Position Semi-Fowlers Blood Pressure Location Left Arm Pulse Ox 98 92 93 Oxygen Delivery Method Nasal Cannula Nasal Cannula Nasal Cannula Oxygen Flow Rate (L/min) 2 3 2 05/18/25 22:12 05/18/25 22:40 05/18/25 22:48 Temperature 98.1 F 98.1 F 98.2 F Temperature Source Oral Oral Oral Pulse Rate 82 82 78 Respiratory Rate 19 H 17 16 Respiratory Effort Blood Pressure 122/56 H 127/56 H 138/70 H Blood Pressure Mean 78 79 92 Blood Pressure Source Monitor Monitor Monitor Blood Pressure Position Semi-Fowlers Semi-Fowlers Semi-Fowlers Blood Pressure Location Left Arm Left Arm Left Arm Pulse Ox 10 100 98 Oxygen Delivery Method Nasal Cannula Nasal Cannula Nasal Cannula Oxygen Flow Rate (L/min) 2 2 2 05/18/25 23:00 05/18/25 23:03 05/18/25 23:12 Temperature 98.4 F 98.4 F Temperature Source Oral Pulse Rate 82 83 Respiratory Rate 19 H 22 H Respiratory Effort Blood Pressure 138/61 H 138/61 H 138/61 H Blood Pressure Mean 86 86 86 Blood Pressure Source Monitor Blood Pressure Position Supine Blood Pressure Location Left Arm Pulse Ox 100 97 Oxygen Delivery Method Nasal Cannula Oxygen Flow Rate (L/min) 2 Weight Weight: 127 lb 10.362 oz Body Mass Index (BMI) 24.9 Physical Exam Narrative General: Alert, Oriented x3, Cooperative HEENT: Atraumatic, PERRLA, EOMI, Normocephalic. Oral: Oral mucosa dry. No Gingival or Mucosal Lesions/ Ulcerations Neck: Supple, No JVD, Negative Carotid Bruits Chest wall/Lungs: Air entry diminished in bilateral lung bases. Bilateral coarse crepitations. Cardiovascular: Mild sinus tachycardia. Systolic murmur Abdomen: Bowel Sounds Present, Soft, Non Tender, Non-Distended : No dysuria. No renal angle tenderness. No suprapubic tenderness. Extremities: No edema, Capillary Refill Less than 3 Seconds Skin: No rashes, No breakdown Musculoskeletal: No Tenderness to Palpation of Joints or Extremities Neurological: Cranial nerves II-XII grossly intact, DTR 2+/4. No acute focal neurological deficit. Psych/Mental Status: Flat affect. Results Lab / Micro Data 05/18/25 18:30 05/18/25 17:50 Labs: Laboratory Results - last 24 hr 05/18/25 17:50: WBC 4.8, RBC 2.93 L, Hgb 6.2 L, Hct 22.7 L, MCV 77.5 L, MCH 21.2 L, MCHC 27.3 L, RDW Std Deviation 49.5 H, RDW Coeff of Rojelio 17.5 H, Plt Count 230, MPV 11.3, Immature Gran % (Auto) 0.400, Neut % (Auto) 60.9, Lymph % (Auto) 25.5, [place] % (Auto) 8.1, Eos % (Auto) 3.9, Baso % (Auto) 1.2 H, Absolute Neuts (auto) 2.9, Absolute Lymphs (auto) 1.23, Nucleated RBC % 0, PT 13.2, INR 1.0, APTT 28.9, D-Dimer Quant (PE/DVT) 0.96 H*, Sodium 139, Potassium 4.1, Chloride 105, Carbon Dioxide 22.1, Anion Gap 12, BUN 20 H, Creatinine 1.17, Estim Creat Clear Calc 33.60 L, Est GFR (MDRD) Non-Af 49 L, BUN/Creatinine Ratio 17.3, G lucose 236 H, Calcium 9.8, Total Bilirubin 0.34, AST 15, ALT 8, Alkaline Phosphatase 87, Troponin T High Sens 45 H, Total Protein 6.9, Albumin 4.2, Globulin 2.7, Albumin/Globulin Ratio 1.5, Lipase 45 05/18/25 18:30: Hgb 5.5 L* 05/18/25 19:44: Blood Type O NEGATIVE, Antibody Screen NEGATIVE, Crossmatch See Detail 05/18/25 20:08: Troponin T Hi Sens 2 Hr 44 H Micro: Microbiology 05/18/25 18:57 Stool Stool Occult Blood ([facility]) - Final Occult Blood Positive Imaging Radiology Impression Chest X-Ray 05/18/25 18:00 IMPRESSION: Bibasilar opacities likely subsegmental atelectasis however pneumonia or aspiration not entirely excluded. Reading Location: [id number] Abdomen/Pelvis CT 05/18/25 19:27 IMPRESSION: No acute CT process. Chronic changes as detailed above. Reading Location: [facility] Chest CTA 05/18/25 19:27 IMPRESSION: No acute thromboembolic disease. Patchy multifocal parenchymal airspace opacity with innumerable solid nodules bilaterally measuring up to approximately 9 mm in the right upper lobe. Diffuse interlobular septal thickening. Inflammatory, metastatic, neoplastic etiologies must be considered. Reading Location: [facility] Assessment & Plan Assessment/Plan (1) Chest pain, atypical: (2) Anemia: (3) GI (gastrointestinal bleed): PLAN: Plan This 71 Vijay being admitted for further evaluation of chest pain and anemia 1. Intermittent atypical chest pain with mild shortness of breath after eating possible related to PUD: Patient is being admitted in PCU. First troponin 45, second 44. Third troponin pending. proBNP elevated. Chest x-ray and CTA reviewed. Shows bibasilar opacities with subsegmental atelectasis. Troponin elevated because of demand ischemia. 2. CT finding of bilateral multifocal parenchymal airspace opacity/interlobular septal thickening/edema: Chest CTA does not show pulmonary embolism but multifocal parenchymal airspace opacity with interval solid nodules bilaterally with diffuse interlobular septal thickening. Patient denies pneumonialike symptoms including fever, tachypnea or shortness of breath at rest but gets dyspnea on exertion on climbing stairs which is chronic for 3 to 4 weeks. Pneumonia workup ordered. Bumetanide 2 mg IV 1 dose ordered as suspicion of interseptal thickening/edema. Patient denies history of COPD or smoking therefore antibiotic not indicated. proBNP elevated. Suspicion of possible heart failure. 2D echo ordered. 3. Severe anemia possible due to upper GI bleed: Stool for occult blood positive. Patient denies external or noticeable upper or lower GI bleed. Denies abdominal pain. H&H 6.2/22.7%. Monitor PRBC ordered. BUN/creatinine ratio 17.3. Symptom score of upper GI bleed is high. GI consulted for EGD 4. Hypertension: Blood pressure is in normal range. Monitor BP and adjust antihypertensive medications accordingly. 5. GERD: On IV PPI 6. Dyslipidemia: Not on a statin. 7. Bilateral carotid stenosis, chronic follows as outpatient. 8. CKD stage IIIb: BUN 20, creatinine 1.17. Estimated creatinine clearance 33 mL/min. 9. DVT prophylaxis, high risk: Pharmacological prophylaxis contraindicated of severe anemia. Bilateral SCDs Living will/advanced directive/end of life care: Patient does not have living will or advanced directive. Her daughter is next of kin. After discussion of benefits/risks procedures involved with full code, DNR CC arrest and DNR CC, the patient opted for full code. Patient does want artificial life support including intubation, tube feed, ventilator and/chest compression, central venous catheter, vasopressor and DC shock if needed Total time spent in [id number] encounter in discussion of advanced directive 17 minutes. Charges/Coding Visit Charges Inpatient E&M: 20218 Init Hosp L3 Procedures Hospitalists Procedures: 58983 Advncd Care Plan 30 Min JOAN Risk Score for UA/STEMI Assesmment (YES = 1) Age > or = 65: Yes > or = 3 CAD risk factors (HTN, Hypercholesterolemia, Diabetes, family hx, current smoker): Yes Known CAD (Stenosis > or = 50%): No ASA used in past 7 days: No Severe angina (> or = 2 episodes in 24 hrs): Yes EKG ST change > or = 0.5mm: No Positive cardiac markers: Yes Score JOAN Risk Score of mortality/ recurrent ischemic event over the next 14 days: 4 = 19.9% - Intermediate D/C Safety Score for UGIB Assessment Total Risk Score: 28 D/C Safety Score for LGIB Assessment Probability of safe discharge: 11-,16% Total Risk Score: 28
[2025-05-18 23:34] LABS: Pro- Brain NATRIURETIC PEPTIDE 4683 pg/mL (<=900)
--- OUTSIDE RECORDS SUMMARY | 2025-05-18 23:45 | XMS RPT_ITS | CCD ---
Author Organization [facility] CliniSytn Care Team Providers Care Director Network Development Name Role Phone Carmen Johnson MD Primary Care Provider [facility], Keti Unavailable Dr. Carmen Johnson Primary Care [...] Provider Carmen Johnson MD Primary Care Provider [facility], Keti Unavailable Carmen Johnson MD Primary Care Provider Harkless DO, Corwin Unavailable Carmen Johnson MD Unavailable Provider Александр IRVIN Unavailable Unavailable Muro CLOSET ORGANIZER.POLISHER APPRENTICE, Jordyn Unavailable Jaycob CLOSET ORGANIZER.JOURNEYMAN CARPENTER, Lissett Unavailable Jaycob CLOSET ORGANIZER.JOURNEYMAN CARPENTER, Lissett Unavailable Jaycob CLOSET ORGANIZER.JOURNEYMAN CARPENTER, Lissett Unavailable Alex IRVIN, Dr. Carmen Wynn [...] Clavulanate Drug Allergy 02-27-20 05 GI Upset [facility] Angiotensin Converting Enzyme (CATINA) Inhibitors (6 sources) Ramipril Drug Allergy 07-19-19 06 Cough [facility] Cholesterol Absorption Inhibitors (6 sources) ezetimibe Drug Allergy 07-19-19 06 Diarrhea [facility] Diclofenac / miSOPROStol (6 sources) Diclofenac / miSOPROStol Drug Allergy 07-19-19 06 GI Upset [facility] Fenofibrate (6 sources) Fenofibrate Drug Allergy 07-19-19 06 [facility] Furosemide (6 sources) Furosemide Drug Allergy 03-30-20 05 [facility] HMG-CoA Reductase Inhibitors (statins) (20 sources) rosuvastatin Drug Allergy 07-19-19 06 Myalgia, Other: See Comments [facility] metFORMIN (6 sources) metFORMIN Drug Allergy 09-01-19 14 GI Upset [facility] NSAIDs (12 sources) celecoxib Drug Allergy 07-19-19 06 GI Upset [facility] Opioid Agonists (12 sources) Codeine Drug Allergy 02-27-20 05 Vomiting, GI Upset [facility] POISON JODI EXTRACT (6 sources) POISON JODI EXTRACT Drug Allergy 12-18-19 14 Other: See Comments [facility] Sulfonamides (antibiotic) (6 sources) Sulfonamides (Antibiotic) Drug Allergy 04-22-20 05 GI Upset [facility] Work Phone: Thiazolidinediones (glitazones) (6 sources) pioglitazone Drug Allergy 07-19-19 06 Diarrhea [facility] Work Phone: (20 sources) Amoxicillin / Clavulanate; Translations: [AMOXICILLIN-PO T CLAVULANATE] Drug Allergy 02-27-20 05 GI Upset [facility] Work Phone: (20 sources) atorvastatin; Translations: [ATORVASTATIN CALCIUM] Drug Allergy 07-19-19 06 Myalgia [facility] Work Phone: (20 sources) celecoxib; Translations: [CELECOXIB] Drug Allergy 07-19-19 06 [facility] Work Phone: (20 sources) Codeine; Translations: [CODEINE] Drug Allergy 02-27-20 05 Vomiting [facility] Work Phone: (20 sources) Diclofenac / miSOPROStol; Translations: [DICLOFENAC-MIS OPROSTOL] Drug Allergy 07-19-19 06 GI Upset [facility] Work Phone: (20 sources) ezetimibe; Translations: [EZETIMIBE] Drug Allergy 07-19-19 06 Diarrhea [facility] Work Phone: (20 sources) Fenofibrate; Translations: [FENOFIBRATE MICRONIZED] Drug Allergy 07-19-19 06 [facility] Work Phone: (20 sources) Furosemide; Translations: [FUROSEMIDE] Drug Allergy 03-30-20 05 Hives [facility] Work Phone: (20 sources) Meperidine; Translations: [MEPERIDINE HCL] Drug Allergy 02-27-20 05 GI Upset [facility] Work Phone: (20 sources) metFORMIN; Translations: [METFORMIN HCL] Drug Allergy 09-01-19 14 GI Upset [facility] (20 sources) pioglitazone; Translations: [PIOGLITAZONE HCL] Drug Allergy 07-19-19 06 Diarrhea [facility] Work Phone: (20 sources) Piroxicam; Translations: [PIROXICAM] Drug Allergy 07-19-19 06 GI Upset [facility] Work Phone: (20 sources) POISON JODI EXTRACT; Translations: [POISON JODI] Drug Allergy 12-18-19 14 Other: See Comments [facility] (20 sources) Pravastatin; Translations: [PRAVASTATIN] Drug Allergy 01-03-20 12 Other: See Comments [facility] (20 sources) Ramipril; Translations: [RAMIPRIL] Drug Allergy 07-19-19 06 Cough [facility] Work Phone: (20 sources) rosuvastatin; Translations: [ROSUVASTATIN CALCIUM] Drug Allergy 07-19-19 06 Myalgia [facility] (20 sources) Simvastatin; Translations: [SIMVASTATIN] Drug Allergy 03-21-20 19 Myalgia [facility] Work Phone: (20 sources) Sulfonamides (Antibiotic); Translations: [SULFA (SULFONAMIDE ANTIBIOTICS)] Propensity to adverse reactions 04-22-20 05 GI Upset [facility] Work Phone: (7 sources) Sulfonamides (Antibiotic) Allergy to substance 04-11-20 22 Hives [facility] (1 source) Furosemide Drug Allergy 11-19-19 [facility] (1 source) Sulfonamides (Antibiotic) Drug allergy (disorder) 11-19-19 [facility] Medications Current Medications Medication Drug [...] Comment on above: Take 1 capsule by [facility] once daily. dorzolamide 20 mg/ml / timolol [...] Comment on above: Take 1 tablet by [facility] once daily. 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 naproxen 500 mg oral tablet [...] Comment on above: Take [address] [facility] twice daily for 5 days. 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] 07-19-2024 Episodic Other connective [...] Auto (Unsp spec) [#/Vol] 1.07 10*3/uL 0.83-4.51 [facility] Absolute neutrophil countOrd ered By: Gill Velez on 11-18-2024 Neutrophils (Bld) [#/Vol] 2.4 10*3/uL 2.0-7.7 [facility] Anion gap in Serum or Plasma Ordered By: Gill Velez on 11-18-2024 Anion gap [Moles/Vol] 13 mmol/L 5-15 [facility] Automated lymphocyte count a s percentage of total leukocytesOrdered By: Gill Velez on 11-18-2024 Lymphocytes/100 WBC Auto (Unsp spec) 26.3 % 19-41 [facility] BUN/creatinine ratioOrdered By: Gill Velez on 11-18-2024 Urea nitrogen/Creatinine [Mass ratio] 22.4 mg/mg High 03-31 [facility] Basic Metabolic Profile (BMP )on 11-18-2024 BUN/CRE 22.4 RATIO High 03-31 [facility] Comment on above: Performed By: #### L 100.0100, L500.2500 #### [facility] [address] [place], [address] Calcium [Mass/Vol] 9.6 mg/dL Normal 7.6-11.0 [facility] Comment on above: Performed By: #### L 100.0100, L500.2500 #### [facility] [address] [place], [address] Chloride [Moles/Vol] 107 mmol/L Normal 98-108 [facility] Comment on above: Performed By: #### L 100.0100, L500.2500 #### [facility] [address] [place], [address] CO2 [Moles/Vol] 22.4 mmol/L Normal 21.0-32.0 [facility] Comment on above: Performed By: #### L 100.0100, L500.2500 #### [facility] [address] [place], [address] Creatinine [Mass/Vol] 1.04 mg/dL Normal 0.70-1.20 [facility] Comment on above: Performed By: #### L 100.0100, L500.2500 #### [facility] [address] [place], [address] GAP 13 Normal 5-15 [facility] Comment on above: Performed By: #### L 100.0100, L500.2500 #### [facility] [address] [place], [address] GFR/1.73 sq M.predicted among non-blacks MDRD (S/P/Bld) [Vol rate/Area] 57 mL/min/{1.73_m2} Low >60 [facility] Comment on above: Result Comment: mL/m in/1.73m2 CKD-EPI Creatinine Equation (2020) Performed By: #### L 100.0100, L500.2500 #### [facility] [address] [place], [address] Glucose [Mass/Vol] 112 mg/dL High 70-99 [facility] Comment on above: Performed By: #### L 100.0100, L500.2500 #### [facility] [address] [place], [address] Potassium [Moles/Vol] 4.2 mmol/L Normal 3.3-5.1 [facility] Comment on above: Performed By: #### L 100.0100, L500.2500 #### [facility] [address] [place], [address] Sodium [Moles/Vol] 142 mmol/L Normal 133-145 [facility] Comment on above: Performed By: #### L 100.0100, L500.2500 #### [facility] [address] [place], [address] Urea nitrogen [Mass/Vol] 23 mg/dL High 4-19 [facility] Comment on above: Performed By: #### L 100.0100, L500.2500 #### [facility] [address] [place], [address] Basophil percentageOrdered B y: Gill Hugheston on 11-18-2024 Basophils/100 WBC (Bld) 0.5 % 0-1 [facility] CBC W/Diff, Automatedon 06-0 Absolute Lymph 1.07 X10 3/uL Normal 0.83-4.51 [facility] Comment on above: Performed By: #### L 100.0100, L500.2500 #### [facility] [address] [place], [address] Absolute Neut 2.4 X10 3/uL Normal 2.0-7.7 [facility] Comment on above: Performed By: #### L 100.0100, L500.2500 #### [facility] [address] [place], [address] Basophils/100 WBC (Bld) 0.5 % Normal 0-1 [facility] Comment on above: Performed By: #### L 100.0100, L500.2500 #### [facility] [address] [place], [address] Eosinophils/100 WBC (Bld) 4.4 % Normal 0-5 [facility] Comment on above: Performed By: #### L 100.0100, L500.2500 #### [facility] [address] [place], [address] Erythrocyte distribution width (RBC) [Ratio] 12.4 % Normal 11.6-14.6 [facility] Comment on above: Performed By: #### L 100.0100, L500.2500 #### [facility] [address] [place], [address] Hematocrit (Bld) [Volume fraction] 25.7 % Low 37-47 [facility] Comment on above: Performed By: #### L 100.0100, L500.2500 #### [facility] [address] [place], [address] Hemoglobin (Bld) [Mass/Vol] 7.9 g/dL Low 12.0-15.0 [facility] Comment on above: Performed By: #### L 100.0100, L500.2500 #### [facility] [address] [place], [address] IG% 0.000 Normal 0.0-0.9 [facility] Comment on above: Result Comment: IG% - Immature Granulocytes (promyelocytes, myelocytes and metamyelocytes) > 1% indicates that a LEFT SHIFT is Present. Performed By: #### L 100.0100, L500.2500 #### [facility] [address] [place], [address] Lymphocytes/100 WBC (Bld) 26.3 % Normal 19-41 [facility] Comment on above: Performed By: #### L 100.0100, L500.2500 #### [facility] [address] [place], [address] MCH (RBC) [Entitic mass] 29.3 pg Normal 27.0-32.0 [facility] Comment on above: Performed By: #### L 100.0100, L500.2500 #### [facility] [address] [place], [address] MCHC (RBC) [Mass/Vol] 30.7 g/dL Low 32-36 [facility] Comment on above: Performed By: #### L 100.0100, L500.2500 #### [facility] [address] [place], [address] MCV (RBC) [Entitic vol] 95.2 fL Normal 81-99 [facility] Comment on above: Performed By: #### L 100.0100, L500.2500 #### [facility] [address] [place], [address] Monocytes/100 WBC (Bld) 9.8 % Normal 0-10 [facility] Comment on above: Performed By: #### L 100.0100, L500.2500 #### [facility] [address] [place], [address] Neutrophils/100 WBC (Bld) 59.0 % Normal 47-70 [facility] Comment on above: Performed By: #### L 100.0100, L500.2500 #### [facility] [address] [place], [address] Nucleated RBC (Bld) [#/Vol] 0 10*3/uL Normal 0-5 [facility] Comment on above: Performed By: #### L 100.0100, L500.2500 #### [facility] [address] [place], [address] Platelet mean volume (Bld) [Entitic vol] 11.1 fL Normal 6.2-12.0 [facility] Comment on above: Performed By: #### L 100.0100, L500.2500 #### [facility] [address] [place], [address] Platelets (Bld) [#/Vol] 174 10*3/uL Normal 150-450 [facility] Comment on above: Performed By: #### L 100.0100, L500.2500 #### [facility] [address] [place], [address] RBC (Bld) [#/Vol] 2.70 10*6/uL Low 4.2-5.4 [facility] Comment on above: Performed By: #### L 100.0100, L500.2500 #### [facility] [address] [place], [address] RDW SD 43.1 fl Normal 35.1-43.9 [facility] Comment on above: Performed By: #### L 100.0100, L500.2500 #### [facility] [address] [place], [address] WBC (Bld) [#/Vol] 4.1 10*3/uL Low 4.4-11.0 [facility] Comment on above: Performed By: #### L 100.0100, L500.2500 #### [facility] [address] [place], [address] Carbon dioxide, total [Moles /volume] in Central venous bloodOrdered By: Gill Rosie on 11-18-2024 CO2 [Moles/Vol] 22.4 mmol/L 21.0-32.0 [facility] Chloride assayOrdered By: Al ycia Rosie on 11-18-2024 Chloride [Moles/Vol] 107 mmol/L 98-[address] [facility] Eosinophil percentageOrdered By: Gill Velez on 11-18-2024 Eosinophils/100 WBC (Bld) 4.4 % 0-5 [facility] Erythrocyte distribution wid th ratioOrdered By: Gill Velez on 11-18-2024 Erythrocyte distribution width (RBC) [Ratio] 12.4 % 11.6-14.6 [facility] Erythrocyte distribution wid th standard deviationOrdered By: Gill Velez on 11-18-2024 Erythrocyte distribution width (RBC) [Ratio] 43.1 fl 35.1-43.9 [facility] Glomerular filtration rate ( GFR) estimation/1.73 sq m using serum, plasma, or whole bOrdered By: Gill Velez on 11-18-2024 GFR/1.73 sq M.predicted among non-blacks MDRD (S/P/Bld) [Vol rate/Area] 57 mL/min/{1.73_m2} Low >60 [facility] Comment on above: mL/min/1.73m2 CKD-EP I Creatinine Equation (2020) Hematocrit Auto (Bld) [Volum e fraction]Ordered By: Gill Velez on 11-18-2024 Hematocrit (Bld) [Volume fraction] 25.7 % Low 37-47 [facility] Hemoglobin measurementOrdere d By: Gill Velez on 11-18-2024 Hemoglobin (Bld) [Mass/Vol] 7.9 g/dL Low 12.0-15.0 [facility] Immature granulocytes/100 WB C Auto (Bld)Ordered By: Gill Velez on 11-18-2024 Immature granulocytes/100 WBC (Bld) 0.000 % 0.0-0.9 [facility] Comment on above: IG% - Immature Granu locytes (promyelocytes, myelocytes and metamyelocytes) > 1% indicates that a LEFT SHIFT is Present. MCV (mean corpuscular volume ) determinationOrdered By: Gill Velez on 11-18-2024 MCV (RBC) [Entitic vol] 95.2 fL 81-99 [facility] Mean corpuscular hemoglobin (MCH) determinationOrdered By: Gill Velez on 11-18-2024 MCH (RBC) [Entitic mass] 29.3 pg 27.0-32.0 [facility] Mean corpuscular hemoglobin concentration (MCHC) determinationOrdered By: Gill Velez on 11-18-2024 MCHC (RBC) [Mass/Vol] 30.7 g/dL Low 32-36 [facility] Mean platelet volume determi nationOrdered By: Gill Velez on 11-18-2024 Platelet mean volume (Bld) [Entitic vol] 11.1 fL 6.2-12.0 [facility] Monocyte percentageOrdered B y: Gill Velez on 11-18-2024 Monocytes/100 WBC (Bld) 9.8 % 0-10 [facility] Neutrophil percentageOrdered By: Gill Velez on 11-18-2024 Neutrophils/100 WBC (Bld) 59.0 % 47-70 [facility] Nucleated red blood cell per centageOrdered By: Gill Velez on 11-18-2024 Nucleated RBC/100 WBC (Bld) [Ratio] 0 % 0-5 [facility] Platelet countOrdered By: Bobby Velez on 11-18-2024 Platelets (Bld) [#/Vol] 174 10*3/uL 150-450 [facility] Potassium measurement (mass/ volume)Ordered By: Gill Velez on 11-18-2024 Potassium (Unsp spec) [Mass/Vol] 4.2 mmol/L 3.3-5.1 [facility] RBC Auto (Bld) [#/Vol]Ordere d By: Gill Velez on 11-18-2024 RBC (Bld) [#/Vol] 2.70 10*6/uL Low 4.2-5.4 [facility] Serum creatinine measurement (mass/volume)Ordered By: Gill Velez on 11-18-2024 Creatinine [Mass/Vol] 1.04 mg/dL 0.70-1.20 [facility] Serum glucose measurement (m ass/volume)Ordered By: Gill Velez on 11-18-2024 Glucose [Mass/Vol] 112 mg/dL High 70-99 [facility] Serum or plasma calcium mina urement (mass/volume)Ordered By: Gill Velez on 11-18-2024 Calcium [Mass/Vol] 9.6 mg/dL 7.6-11.0 [facility] Serum or plasma urea nitroge n measurement (mass/volume)Ordered By: Gill Velez on 11-18-2024 Urea nitrogen [Mass/Vol] 23 mg/dL High 4-19 [facility] Sodium levelOrdered By: Laverne Velez on 11-18-2024 Sodium [Moles/Vol] 142 mmol/L 133-145 [facility] White blood cell (WBC) count Ordered By: Gill Velez on 11-18-2024 WBC (Bld) [#/Vol] 4.1 10*3/uL Low 4.4-11.0 [facility] Internal Medicine Office Vis iton 11-14-2024 Internal Medicine Office Visit [facility] [address] [place] [address] OFFICE VISIT Date of Service: 11/18/24 MR#: [id number] Acct: [id number] Name: ANGELICA TORIBIO Rep #: [id number] : 1950 Provider: Dr. Gill anderson MD Age/Sex: 74/F Location: [facility] Status: Signed Intake Vital Signs 11/22/23 22:44 09/25/24 08:46 11/18/24 13:16 Height 5 ft 5 ft 5 ft Weight: 114 lb BMI 22.2 BP 144/88 H Blood Pressure Location Lt brachial Position Sitting Respiration 16 Pulse 81 Pulse Source Monitor Temp 98.4 F Temp Source Temporal Pulse Oximetry (%) 98 Oxygen Delivery Method room air Intake Visit Reasons: DOULA. 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 Pt states she got pacemaker placed at [facility]. Pt states she has not had a mammogram or colonoscopy in awhile, pt states she will not get one done until she says ok from cosmetology educator. [facility] Medical History (Updated 11/18/24 @ 13:41 by [...] and colleagues, with an educational aditi from [employer]. CHASITY-7 BMS CHASITY-7 Feeling nervous, anxious, or [...] educational gr (more content not included)... Normal [facility] 11-08-2024 [facility] Telephone (AGCARDPOB ) ----- ANGELICA TORIBIO ([id number]) 1950 F IPA Date Time Provider Department [...] Date Reviewed: 09/20/2024 Reviewed by: Ximena Maciel APRN.JOURNEYMAN CARPENTER - Fully Assessed Reason for Visit: Patient [...] Status:Closed by WINSTON GUTIERREZ on 11/08/[address] [facility] Anion gap in Serum or Plasma Ordered By: Ryan Kamara on 09-25-2024 Anion gap [Moles/Vol] 11 mmol/L 10-24 [facility] BUN/creatinine ratioOrdered By: Ryan Kamara on 09-25-2024 Urea nitrogen/Creatinine [Mass ratio] 17.3 mg/mg - [facility] Bilirubin, totalOrdered By: Ryan Kamara on 09-25-2024 Bilirubin [Mass/Vol] 0.43 mg/dL 0.00-1.30 [facility] CBC-Complete Blood Cnt No Di ffon 09-25-2024 Erythrocyte distribution width (RBC) [Ratio] 12.9 % Normal 11.6-14.6 [facility] Comment on above: Performed By: #### L 100.0500, L503.0106, L506.1001, L500.4050, L501.9520 #### [facility] [address] [place], [address] Hematocrit (Bld) [Volume fraction] 29.3 % Low 37-47 [facility] Comment on above: Performed By: #### L 100.0500, L503.0106, L506.1001, L500.4050, L501.9520 #### [facility] [address] [place], [address] Hemoglobin (Bld) [Mass/Vol] 9.7 g/dL Low 12.0-15.0 [facility] Comment on above: Performed By: #### L 100.0500, L503.0106, L506.1001, L500.4050, L501.9520 #### [facility] [address] [place], [address] MCH (RBC) [Entitic mass] 31.2 pg Normal 27.0-32.0 [facility] Comment on above: Performed By: #### L 100.0500, L503.0106, L506.1001, L500.4050, L501.9520 #### [facility] [address] [place], [address] MCHC (RBC) [Mass/Vol] 33.1 g/dL Normal 32-36 [facility] Comment on above: Performed By: #### L 100.0500, L503.0106, L506.1001, L500.4050, L501.9520 #### [facility] [address] [place], [address] MCV (RBC) [Entitic vol] 94.2 fL Normal 81-99 [facility] Comment on above: Performed By: #### L 100.0500, L503.0106, L506.1001, L500.4050, L501.9520 #### [facility] [address] [place], [address] Platelet mean volume (Bld) [Entitic vol] 11.1 fL Normal 6.2-12.0 [facility] Comment on above: Performed By: #### L 100.0500, L503.0106, L506.1001, L500.4050, L501.9520 #### [facility] [address] [place], [address] Platelets (Bld) [#/Vol] 158 10*3/uL Normal 150-450 [facility] Comment on above: Performed By: #### L 100.0500, L503.0106, L506.1001, L500.4050, L501.9520 #### [facility] [address] [place], [address] RBC (Bld) [#/Vol] 3.11 10*6/uL Low 4.2-5.4 [facility] Comment on above: Performed By: #### L 100.0500, L503.0106, L506.1001, L500.4050, L501.9520 #### [facility] [address] [place], [address] RDW SD 44.2 fl High 35.1-43.9 [facility] Comment on above: Performed By: #### L 100.0500, L503.0106, L506.1001, L500.4050, L501.9520 #### [facility] [address] [place], [address] WBC (Bld) [#/Vol] 5.0 10*3/uL Normal 4.4-11.0 [facility] Comment on above: Performed By: #### L 100.0500, L503.0106, L506.1001, L500.4050, L501.9520 #### [facility] [address] [place], [address] Carbon dioxide, total [Moles /volume] in Central venous bloodOrdered By: Ryan Kamara on 09-25-2024 CO2 [Moles/Vol] 22.9 mmol/L 21.0-32.0 [facility] Chloride assayOrdered By: Eitan ttmily Kamara on 09-25-2024 Chloride [Moles/Vol] 110 mmol/L High 98-108 [facility] Comprehensive Metabolic Prof ilon 09-25-2024 Albumin [Mass/Vol] 4.1 g/dL Normal 3.4-4.8 [facility] Comment on above: Performed By: #### L 100.0500, L503.0106, L506.1001, L500.4050, L501.9520 #### [facility] [address] [place], [address] Albumin/Globulin [Mass ratio] 1.7 {ratio} Normal 0.9-2.4 [facility] Comment on above: Performed By: #### L 100.0500, L503.0106, L506.1001, L500.4050, L501.9520 #### [facility] [address] [place], [address] ALK PHOS 74 U/L Normal 35-104 [facility] Comment on above: Performed By: #### L 100.0500, L503.0106, L506.1001, L500.4050, L501.9520 #### [facility] [address] [place], [address] ALT [Catalytic activity/Vol] 12 U/L Normal <=34 [facility] Comment on above: Performed By: #### L 100.0500, L503.0106, L506.1001, L500.4050, L501.9520 #### [facility] [address] [place], [address] AST [Catalytic activity/Vol] 17 U/L Normal <=31 [facility] Comment on above: Performed By: #### L 100.0500, L503.0106, L506.1001, L500.4050, L501.9520 #### [facility] [address] [place], [address] Bilirubin [Mass/Vol] 0.43 mg/dL Normal 0.00-1.30 [facility] Comment on above: Performed By: #### L 100.0500, L503.0106, L506.1001, L500.4050, L501.9520 #### [facility] [address] [place], [address] BUN/CRE 17.3 RATIO Normal 10-20 [facility] Comment on above: Performed By: #### L 100.0500, L503.0106, L506.1001, L500.4050, L501.9520 #### [facility] [address] [place], [address] Calcium [Mass/Vol] 9.3 mg/dL Normal 7.6-11.0 [facility] Comment on above: Performed By: #### L 100.0500, L503.0106, L506.1001, L500.4050, L501.9520 #### [facility] [address] [place], [address] Chloride [Moles/Vol] 110 mmol/L High 98-108 [facility] Comment on above: Performed By: #### L 100.0500, L503.0106, L506.1001, L500.4050, L501.9520 #### [facility] [address] [place], [address] CO2 [Moles/Vol] 22.9 mmol/L Normal 21.0-32.0 [facility] Comment on above: Performed By: #### L 100.0500, L503.0106, L506.1001, L500.4050, L501.9520 #### [facility] [address] [place], [address] Creatinine [Mass/Vol] 0.91 mg/dL Normal 0.70-1.20 [facility] Comment on above: Performed By: #### L 100.0500, L503.0106, L506.1001, L500.4050, L501.9520 #### [facility] [address] [place], [address] GAP 11 Normal 5-15 [facility] Comment on above: Performed By: #### L 100.0500, L503.0106, L506.1001, L500.4050, L501.9520 #### [facility] [address] [place], [address] GFR/1.73 sq M.predicted among non-blacks MDRD (S/P/Bld) [Vol rate/Area] 67 mL/min/{1.73_m2} Normal >60 [facility] Comment on above: Result Comment: mL/m in/1.73m2 CKD-EPI Creatinine Equation (2020) Performed By: #### L 100.0500, L503.0106, L506.1001, L500.4050, L501.9520 #### [facility] [address] [place], [address] Globulin (S) [Mass/Vol] 2.5 g/dL Normal 2.2-4.2 [facility] Comment on above: Performed By: #### L 100.0500, L503.0106, L506.1001, L500.4050, L501.9520 #### [facility] [address] [place], [address] Glucose [Mass/Vol] 211 mg/dL High 70-99 [facility] Comment on above: Performed By: #### L 100.0500, L503.0106, L506.1001, L500.4050, L501.9520 #### [facility] [address] [place], [address] Potassium [Moles/Vol] 2.8 mmol/L Low 3.3-5.1 [facility] Comment on above: Performed By: #### L 100.0500, L503.0106, L506.1001, L500.4050, L501.9520 #### [facility] [address] [place], [address] Sodium [Moles/Vol] 145 mmol/L Normal 133-145 [facility] Comment on above: Performed By: #### L 100.0500, L503.0106, L506.1001, L500.4050, L501.9520 #### [facility] [address] [place], [address] T PROT 6.6 g/dL Normal 5.9-8.4 [facility] Comment on above: Performed By: #### L 100.0500, L503.0106, L506.1001, L500.4050, L501.9520 #### [facility] [address] [place], [address] Urea nitrogen [Mass/Vol] 16 mg/dL Normal 4-19 [facility] Comment on above: Performed By: #### L 100.0500, L503.0106, L506.1001, L500.4050, L501.9520 #### [facility] [address] [place], [address] Erythrocyte distribution wid th (RBC) [Ratio]Ordered By: Ryan Kamara on 09-25-2024 Erythrocyte distribution width (RBC) [Entitic vol] 44.2 fL High 35.1-43.9 [facility] Erythrocyte distribution wid th ratioOrdered By: Ryan Kamara on 09-25-2024 Erythrocyte distribution width (RBC) [Ratio] 12.9 % 11.6-14.6 [facility] Erythrocyte distribution wid th standard deviationOrdered By: Ryan Kamara on 09-25-2024 Erythrocyte distribution width (RBC) [Ratio] 44.2 fl High 35.1-43.9 [facility] GFR/1.73 sq M.predicted jay g non-blacks MDRD (S/P/Bld) [Vol rate/Area]Ordered By: Ryan Kamara on 09-25-2024 Estimated GFR (MDRD) Non-Af Amer 67 >60 [facility] Comment on above: mL/min/1.73m2 CKD-EP I Creatinine Equation (2020) Glomerular filtration rate ( GFR) estimation/1.73 sq m using serum, plasma, or whole bOrdered By: Ryan Kamara on 09-25-2024 GFR/1.73 sq M.predicted among non-blacks MDRD (S/P/Bld) [Vol rate/Area] 67 mL/min/{1.73_m2} >60 [facility] Comment on above: mL/min/1.73m2 CKD-EP I Creatinine Equation (2020) Hematocrit Auto (Bld) [Volum e fraction]Ordered By: Ryan Kamara on 09-25-2024 Hematocrit (Bld) [Volume fraction] 29.3 % Low 37-47 [facility] Hemoglobin measurementOrdere d By: Ryan Kamara on 09-25-2024 Hemoglobin (Bld) [Mass/Vol] 9.7 g/dL Low 12.0-15.0 [facility] Internal Medicine Office Vis itosamantha 09-25-2024 Internal Medicine Office Visit [facility] [address] [place] [address] [address] [place] [address] OFFICE VISIT Date of Service: 09/25/24 MR#: [id number] Acct: [id number] Name: ANGELICA TORIBIO Rep #: [id number] : 1950 Provider: ARUN Fall Age/Sex: 74/F Location: [facility] Status: Signed Intake Vital Signs 11/22/23 22:44 09/24/24 10:42 09/25/24 08:46 Height 5 ft 5 ft 5 ft Weight: 117 lb BMI 22.8 BP 132/78 H Blood Pressure Location Lt brachial Position Sitting Respiration 18 Pulse 81 Pulse Source Monitor Temp 97.8 F Temp Source Temporal Pulse Oximetry (%) 98 Oxygen Delivery Method room air Intake Visit Reasons: DOULA ACUTE BP ISSUES AND WEIGHTLOSS-EST NOVEMBER Chief Complaint: DOULA ACUTE BP ISSUES AND WEIGHT LOSS-EST NOVEMBER Dicer Operator Required: No Is patient in pain?: No [...] drained off of her right eye at [facility] in [place] tomorrow pt reports that she only takes hydralazine, Vitamin D daily dose (unsure of strength), and tylenol for pain pt has concerns about unintentional weight loss [facility] Medical History (Updated 09/26/24 @ 11:34 by [...] at home: Yes HPI HPI Chief Complaint: DOULA ACUTE BP ISSUES AND WEIGHT LOSS-EST 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 She was previously seeing PCP in [place] at [facility] but is not wanting to go back to see her as the medication she was taking they told her caused her all of her issues She had a pacemaker placed a year ago following a bout of some shortness of breath and further evaluation led to finding an AV block. She was recently seen at [facility] for evaluation of her pacemaker prior to [...] and wanted her to follow-up with a cosmetology educator since she does not see anyone outpatient. They placed a referral for the [place] [facility] but she states that she is going to go back to the cardiology group at [facility]. 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 She does not eat regular meals. [...] surgery o (more content not included)... Normal [facility] - Chemistry and C hemistry - challengeOrdered By: Ryan Kamara on 09-25-2024 AST [Catalytic activity/Vol] 17 U/L <32 [facility] - Hematology and Cell countsOrdered By: Ryan Kamara on 09-25-2024 HbA1c (Bld) [Mass fraction] 6.3 % 4.2-6.3 [facility] MCV (mean corpuscular volume ) determinationOrdered By: Ryan Kamara on 09-25-2024 MCV (RBC) [Entitic vol] 94.2 fL 81-99 [facility] Mean corpuscular hemoglobin (MCH) determinationOrdered By: Ryan Kamara on 09-25-2024 MCH (RBC) [Entitic mass] 31.2 pg 27.0-32.0 [facility] Mean corpuscular hemoglobin concentration (MCHC) determinationOrdered By: Ryan Kamara on 09-25-2024 MCHC (RBC) [Mass/Vol] 33.1 g/dL 32-36 [facility] Mean platelet volume determi nationOrdered By: Ryan Kamara on 09-25-2024 Platelet mean volume (Bld) [Entitic vol] 11.1 fL 6.2-12.0 [facility] Platelet countOrdered By: Eitan ttmily Kamara on 09-25-2024 Platelets (Bld) [#/Vol] 158 10*3/uL 150-450 [facility] Potassium (Unsp spec) [Mass/ Vol]Ordered By: Ryan Kamara on 09-25-2024 Potassium [Moles/Vol] 2.8 mmol/L Low 3.3-5.1 [facility] Potassium measurement (mass/ volume)Ordered By: Ryan Kamara on 09-25-2024 Potassium (Unsp spec) [Mass/Vol] 2.8 mmol/L Low 3.3-5.1 [facility] RBC Auto (Bld) [#/Vol]Ordere d By: Ryan Kamara on 09-25-2024 RBC (Bld) [#/Vol] 3.11 10*6/uL Low 4.2-5.4 [facility] Serum creatinine measurement (mass/volume)Ordered By: Ryan Kamara on 09-25-2024 Creatinine [Mass/Vol] 0.91 mg/dL 0.70-1.20 [facility] Serum globulin measurementOr dered By: Ryan Kamara on 09-25-2024 Globulin (S) [Mass/Vol] 2.5 g/dL 2.2-4.2 [facility] Serum glucose measurement (m ass/volume)Ordered By: Ryan Kamara on 09-25-2024 Glucose [Mass/Vol] 211 mg/dL High 70-99 [facility] Serum or plasma alanine berman otransferase (ALT) measurementOrdered By: Ryan Kamara on 09-25-2024 ALT [Catalytic activity/Vol] 12 U/L <35 [facility] Serum or plasma albumin mina urement (mass/volume)Ordered By: Ryan Kamara on 09-25-2024 Albumin [Mass/Vol] 4.1 g/dL 3.4-4.8 [facility] Serum or plasma albumin/glob ulin mass ratioOrdered By: Ryan Kamara on 09-25-2024 Albumin/Globulin [Mass ratio] 1.7 {ratio} 0.9-2.4 [facility] Serum or plasma alkaline jasmyn sphatase measurementOrdered By: Ryan Kamara on 09-25-2024 ALP [Catalytic activity/Vol] 74 U/L 35-104 [facility] Serum or plasma calcium mina urement (mass/volume)Ordered By: Ryan Kamara on 09-25-2024 Calcium [Mass/Vol] 9.3 mg/dL 7.6-11.0 [facility] Serum or plasma urea nitroge n measurement (mass/volume)Ordered By: Ryan Kamara on 09-25-2024 Urea nitrogen [Mass/Vol] 16 mg/dL 4-19 [facility] Sodium levelOrdered By: Alonso Kamara on 09-25-2024 Sodium [Moles/Vol] 145 mmol/L 133-145 [facility] TSH DL <= 0.005 mIU/L QnOrde red By: Ryan Kamara on 09-25-2024 Thyroid Stimulating Hormone (TSH) 2.680 uIU/mL 0.300-4.200 [facility] TSH Qn 2.680 uIU/mL 0.300-4.200 [facility] Thyroid Stim Hormone (TSH)on 09-25-2024 TSH 2.680 uIU/mL Normal 0.300-4.200 [facility] Comment on above: Performed By: #### L 100.0500, L503.0106, L506.1001, L500.4050, L501.9520 #### [facility] [address] [place], [address] Total proteinOrdered By: Francois Kamara on 09-25-2024 Protein [Mass/Vol] 6.6 g/dL 5.9-8.4 [facility] Vitamin B12on 09-25-2024 Cobalamin (Vitamin B12) [Mass/Vol] 279 pg/mL Normal 180-914 [facility] Comment on above: Performed By: #### L 100.0500, L503.0106, L506.1001, L500.4050, L501.9520 #### [facility] [address] [place], [address] Vitamin B12 ser/plasOrdered By: Ryan Kamara on 09-25-2024 Cobalamin (Vitamin B12) [Mass/Vol] 279 pg/mL 180-914 [facility] Vitamin D, 25-hydroxyOrdered By: Ryan Kamara on 09-25-2024 Vitamin D 25-Hydroxy 33.2 ng/mL 30-100 [facility] Comment on above: Vitamin D StatusDefi ciency: <20 ng/mL (50nmol/L)Insufficiency: 20-30 ng/mL (50-75 nmol/L)Sufficiency: 30-100 ng/mL (75-250 nmol/L)Toxicity: >100 ng/mL (>250 nmol/L) Vitamin D,25 Hydroxyon 09-25 Vitamin D 25-OH 33.2 ng/mL Normal 30-100 [facility] Comment on above: Result Comment: Liliam min D Status Deficiency: <20 ng/mL (50nmol/L) Insufficiency: 20-30 ng/mL (50-75 nmol/L) Sufficiency: 30-100 ng/mL (75-250 nmol/L) Toxicity: >100 ng/mL (>250 nmol/L) Performed By: #### L 100.0500, L503.0106, L506.1001, L500.4050, L501.9520 #### [facility] [address] [place], [address] White blood cell (WBC) count Ordered By: Ryan Kamara on 09-25-2024 WBC (Bld) [#/Vol] 5.0 10*3/uL 4.4-11.0 [facility] CNOVon 09-20-2024 CNOV Office Visit (AGCARD POB) ----- REAL TORIBIOOLESYA Causey ([id number]) 1950 F Date Time Provider Department 09/20/24 7:30 AM XIMENA MACIEL During your visit today, we recorded the following information about you: Pulse Blood pressure Weight 80/minute 130/72 49.9 kg Ximena Maciel APRN.JOURNEYMAN CARPENTER 09/20/2024 8:[address] [facility] Cardiology Electrophysiology PRIMARY CARE PHYSICIAN: Carmen Johnson [address] [place] [address] CHIEF COMPLAINT: Cardiovascular medicine follow-up for pacemaker. [...] pacemaker implantation. She underwent implantation of a [employer] dual chamber pacemaker with Dr. Ramachandran [...] valve calcification. She underwent implantation of a [employer] dual-chamber pacemaker on 11/07/[address] [...] currently under the care of a general cosmetology educator. PAST MEDICAL HISTORY Diagno (more content not included)... Normal [facility] ECG B/O W INTERP (MED OFFICE )on 09-20-2024 atrial sensed ventri cular paced rhythm, 81 bpm, ID 158 ms, QRS 138 ms, QT/QTc 418/485 ms. [facility] CNPAlexa 09-17-2024 CNPN Telephone (AGCARDPOB ) ----- ANGELICA TORIBIO ([id number]) 1950 F Date Time Provider Department 09/17/24 [...] did refer her to general cardiology at [facility] for disease of the mitral valve, I [...] [N39.0, B (more content not included)... Normal [facility] No Panel Informationon 09-03 BLANK _ [facility] Implant Date 11/07/2023 [facility] PACEMAKER REMOTE CHECKon AV Delay Adaptive Paced Minimum (ms) 200 ms [facility] AV Delay Adaptive Sensed Minimum (ms) 170 ms [facility] AV Delay Paced (ms) 100 ms [facility] AV Delay Sensed (ms) [address] [facility] Chema RA Pacing Amplitude (volts) 2.0 V [facility] Chema RA Pacing Polarity BI [facility] Chema RA Pacing Pulse Width (ms) 0.4 ms [facility] Chema RA Sensing Amplitude (mvolts) 0.25 mV [facility] Chema RA Sensing Polarity BI [facility] Chema RV Pacing Amplitude (volts) 2.5 V [facility] Chema RV Pacing Polarity BI [facility] Chema RV Pacing Pulse Width (ms) 0.4 ms [facility] Chema RV Sensing Amplitude (mvolts) 1.5 mV [facility] Chema RV Sensing Polarity BI [facility] Lead1 Mfg [employer] [facility] Lead2 Mfg [employer] [facility] Location RA [facility] Location RV [facility] Lower Rate (bpm) 60 {beats}/min [facility] Max Sensor Rate (bmp) 130 {beats}/min [facility] Model L311 ACCOLADE [facility] Model 7841 Ingevity+IS-1 [facility] Model 7842 Ingevity+IS-[facility] Pacing Mode DDDR [facility] PM-Device Mfg BSX [facility] PM-Percent Pacing (A) 3 % [facility] PM-Percent Pacing (V) 100 % [facility] RA Bipolar Impedance ohms 506 ohm [facility] RV Bipolar Impedance ohms 717 ohm [facility] Serial Number [id number] [facility] Serial Number [id number] [facility] Serial Number [id number] [facility] Tracking Rate (bpm) 130 {beats}/min [facility] PM remote interrogat ion. Presenting EGM: /ASBESTOS SURVEYOR @ 72 bpm. Interrogation shows no ventricular [...] the original. PM remote interrogation. Presenting EGM: /ASBESTOS SURVEYOR @ 72 bpm. Interrogation shows no ventricular [...] CARDIAC DATA AND REPORT, Scanned Documents section. [facility] Agustina 07-31-2024 MARTIN Telephone (AGCARDHWG ) ----- NATHANIELANGELICA Marium ([id number]) 1950 F Date Time Provider Department 07/31/24 [...] know if she should have a general cosmetology educator? Carina Cuenca LPN July 31, 2024 3:35 [...] Number: [id number] (more content not included)... Normal [facility] No Panel Informationon 05-21 BLANK _ [facility] Implant Date 11/07/2023 [facility] PACEMAKER REMOTE CHECKon AV Delay Adaptive Paced Minimum (ms) 200 ms [facility] AV Delay Adaptive Sensed Minimum (ms) 170 ms [facility] AV Delay Paced (ms) 100 ms [facility] AV Delay Sensed (ms) [address] [facility] Chema RA Pacing Amplitude (volts) 2.0 V [facility] Chema RA Pacing Polarity BI [facility] Chema RA Pacing Pulse Width (ms) 0.4 ms [facility] Chema RA Sensing Amplitude (mvolts) 0.25 mV [facility] Chema RA Sensing Polarity BI [facility] Chema RV Pacing Amplitude (volts) 2.5 V [facility] Chema RV Pacing Polarity BI [facility] Chema RV Pacing Pulse Width (ms) 0.4 ms [facility] Chema RV Sensing Amplitude (mvolts) 1.5 mV [facility] Chema RV Sensing Polarity BI [facility] Lead1 Mfg [employer] [facility] Lead2 Mfg [facility] Location RA [facility] Location RV [facility] Lower Rate (bpm) 60 {beats}/min [facility] Max Sensor Rate (bmp) 130 {beats}/min [facility] Model L311 ACCOLADE MRI [facility] Model 7841 Ingevity+IS-1 [facility] Model 7842 Ingevity+IS-1 [facility] Pacing Mode DDDR [facility] PM-Device Mfg BSX [facility] PM-Percent Pacing (A) 2 % [facility] PM-Percent Pacing (V) 100 % [facility] RA Bipolar Impedance ohms 571 ohm [facility] RV Bipolar Impedance ohms 786 ohm [facility] Serial Number [id number] [facility] Serial Number [id number] [facility] Serial Number [id number] [facility] Tracking Rate (bpm) 130 {beats}/min [facility] PM remote interrogat ion. Presenting EGM shows AP/ASBESTOS SURVEYOR at 62 BPM. Interrogation shows no ventricular [...] original. PM remote interrogation. Presenting EGM shows AP/ASBESTOS SURVEYOR at 62 BPM. Interrogation shows no ventricular [...] CARDIAC DATA AND REPORT, Scanned Documents section. [facility] Agustina 04-12-2024 CNPN Telephone (AGCARDPOB ) ----- ANGELICA TORIBIO ([id number]) 1950 F Date Time Provider Department 04/12/24 [...] Encounter Status:Closed by MAIRA SHERMAN on 05/08/24 [facility] CNOVon 01-10-2024 CNOV Office Visit (INTMWS ) ----- ANGELICA TORIBIO ([id number]) 1950 F Date Time Provider Department 01/10/24 2:20 PM CARMEN JOHNSON INTMWS During your visit today, we recorded the following information about you: Temperature Pulse Respiration Blood pressure 98.4 degrees 88/minute 18/minute 136/62 Weight 58.3 kg Carmen Johnson MD 02/16/2024 12:23 AM Signed This note was created using NoteWriter. Subjective Angelica Toribio is a 73 year old female. Patient presents with: ED Follow-up: [place] [facility] follow up 01/07/24 SUBJECTIVE: Angelica Toribio is a 73 year old year old lady here today for ER follow up appointment for review of medical conditions. Feels good on current meds with current BP. Reviewed that had first Pacemaker check 01/02/24. Feels like a rumbling in her chest. So went to ER in [place]. Had pressure in chest. No feeling of reflux or indigestion. Ruled out for acute VA. Still taking hydralazine 25 mg TID. Amlodipine half of 10mg pill daily. Has cataracts--large in left and smaller in right. Will see Dr. Barragan at [facility]. Still getting shots for retina. PAST MEDICAL HISTORY No date: Anxiety state, unspecified No date: Displacement of lumbar intervertebral disc without myelopathy No date: DM type 2 (diabetes mellitus, type 2) ([facility]) No date: Edema No date: Other malaise [...] the date of the service which included [id number] patient care, completing clinical documentation, obtaining and/or [...] New prescript (more content not included)... Normal [facility] CNPAlexa 01-08-2024 CNPN Telephone (INTMWS) ----- ANGELICA TORIBIO ([id number]) 1950 F Date Time Provider Department 01/08/24 [...] by JACKY (more content not included)... Normal [facility] ED NOTEon 01-08-2024 ED NOTE HNO ID: [id number] Author: UBALDO RAMOS, RN Service: Emergency Medicine Author Type: Registered Nurse Type: ED Notes Filed: 01/08/2024 01:42 Note Text: Reviewed dc orders with pt, script x 1 reviewed. Pt verbalized understanding, denies any further needs. Pt and friend ambulatory with lobby to call for ride home. Normal [facility] ED PROV NOTEon 01-08-2024 ED PROV NOTE HNO ID: [id number] Author: EVELIN YANG MD Service: Emergency Medicine [...] DM type 2 (diabetes mellitus, type 2) ([facility]) No date: Edema No date: Other malaise and fatigue No date: Unspecified essential hypertension PAST SURGICAL HISTORY 11/07/2023: BASIC PACEMAKER DUAL CHAMBER; Left Comment: [employer] dual PPM for CHB; Dr. Orozco at [facility] 06/12/1992: TOTAL ABDOMINAL HYSTERECT W/WO RMVL TUBE OVARY Comment: Hysterectomy, Partial-one ovary left FAMILY HISTORY Problem Relation Age of Onset Heart Father [facility] Osteoporosis Mother ? Social History Tobacco Use [...] dry. Neurol (more content not included)... Normal [facility] HIGH SENSITIVITY TROPONIN T (THIRD) 3 HRS AFTER INITIALon 01-08-2024 Troponin T.cardiac High sensitivity method [Mass/Vol] 26 ng/L High <12 [facility] Comment on above: Order Comment: Moise lewis Type: BLOOD SPECIMEN Ordering Facility: [facility] Address: [address] [place] [address] Performed By: #### L [id number] #### [facility] CLIA [id number] [address] [place], [place] [id number] [facility] Basic metabolic 2000 panelon 01-07-2024 Anion gap [Moles/Vol] 14 mmol/L Normal 8-15 [facility] Comment on above: Order Comment: Moise lewis Type: BLOOD SPECIMEN Ordering Facility: [facility] Address: [address] [place] [address] Performed By: #### L [id number] #### [facility] CLIA [id number] [address] [place] [address] [place] Calcium [Mass/Vol] 9.2 mg/dL Normal 8.5-10.2 [facility] Comment on above: Order Comment: Moise lewis Type: BLOOD SPECIMEN Ordering Facility: [facility] Address: [address] [place] [address] Performed By: #### L [id number] #### [facility] CLIA [id number] [address] [place] [address] [facility] Chloride [Moles/Vol] 103 mmol/L Normal 98-107 [facility] Comment on above: Order Comment: Moise lewis Type: BLOOD SPECIMEN Ordering Facility: [facility] Address: [address] [place] [address] Performed By: #### L [id number] #### [facility] CLIA [id number] [address] [place] [address] [place] CO2 [Moles/Vol] 22 mmol/L Normal 22-30 [facility] Comment on above: Order Comment: Moise lewis Type: BLOOD SPECIMEN Ordering Facility: [facility] Address: [address] [place] [address] Performed By: #### L [id number] #### [facility] CLIA [id number] [address] [facility] Creatinine [Mass/Vol] 1.05 mg/dL High 0.58-0.96 [facility] Comment on above: Order Comment: Moise men Type: BLOOD SPECIMEN Ordering Facility: [facility] Address: [address] [place] [address] Performed By: #### L [id number] #### [facility] CLIA [id number] [address] Creatinine and Glomerular filtration rate.predicted panel (S/P/Bld) 57 mL/min/1.73m??? Low >=60 [facility] Comment on above: Order Comment: Moise lewis Type: BLOOD SPECIMEN Ordering Facility: [facility] Address: [address] [place] [address] Result Comment: Coral mated Glomerular Filtration Rate [...] reflect actual GFR. Performed By: #### L [id number] #### [facility] CLIA [id number] [address] [place] [address] [place] Glucose [Mass/Vol] 133 mg/dL High 74-99 [facility] Comment on above: Order Comment: Moise lewis Type: BLOOD SPECIMEN Ordering Facility: [facility] Address: [address] [place] [address] Result Comment: [facility] [place] [facility] Association (ADA) provides guidance for cutoff [...] Standards of Medical Care in Diabetes 2016, [place] Diabetes Association. Diabetes Care. 2016.39(Suppl 1). Performed By: #### L [id number] #### [facility] CLIA [id number] [address] [place] [address] [place] Potassium [Moles/Vol] 3.9 mmol/L Normal 3.7-5.1 [facility] Comment on above: Order Comment: Moise lewis Type: BLOOD SPECIMEN Ordering Facility: [facility] Address: [address] [place] [address] Performed By: #### L [id number] #### [facility] CLIA [id number] [address] [place], [place] [address] [place] Sodium [Moles/Vol] 139 mmol/L Normal 136-144 [facility] Comment on above: Order Comment: Moise lewis Type: BLOOD SPECIMEN Ordering Facility: [facility] Address: [address] [place] [address] Performed By: #### L [id number] #### [facility] CLIA [id number] [address] [place], [place] [address] [place] Urea nitrogen [Mass/Vol] 13 mg/dL Normal 7-21 [facility] Comment on above: Order Comment: Speci men Type: BLOOD SPECIMEN Ordering Facility: [facility] Address: [address] [place] [address] Performed By: #### L [id number] #### [facility] CLIA [id number] [address] [place] [address] [place] CBC W Auto Differential pane l (Bld)on 01-07-2024 Basophils (Bld) [#/Vol] 0.04 10*3/uL Normal <0.11 [facility] Comment on above: Order Comment: Speci men Type: BLOOD SPECIMEN Ordering Facility: [facility] Address: [address] [place] [address] Performed By: #### L [id number] #### [facility] CLIA [id number] [address] [place] [address] [place] Basophils/100 WBC (Bld) 0.9 % Normal [facility] Comment on above: Order Comment: Speci men Type: BLOOD SPECIMEN Ordering Facility: [facility] Address: [address] [place] [address] Performed By: #### L [id number] #### [facility] CLIA [id number] [address] [place] [address] [place] Differential cell count method Nom (Bld) Auto Normal [facility] Comment on above: Order Comment: Speci men Type: BLOOD SPECIMEN Ordering Facility: [facility] Address: [address] [place] [address] Performed By: #### L [id number] #### [facility] CLIA [id number] [address] [place] [address] [place] Eosinophils (Bld) [#/Vol] 0.20 10*3/uL Normal <0.46 [facility] Comment on above: Order Comment: Speci men Type: BLOOD SPECIMEN Ordering Facility: [facility] Address: [address] [place] [address] Performed By: #### L [id number] #### [facility] CLIA [id number] [address] [place] [address] [place] Eosinophils/100 WBC (Bld) 4.4 % Normal [facility] Comment on above: Order Comment: Speci men Type: BLOOD SPECIMEN Ordering Facility: [facility] Address: [address] [place] [address] Performed By: #### L [id number] #### [facility] CLIA [id number] [address] [place] [address] [place] Erythrocyte distribution width (RBC) [Ratio] 13.3 % Normal 11.5-15.0 [facility] Comment on above: Order Comment: Speci men Type: BLOOD SPECIMEN Ordering Facility: [facility] Address: [address] [place] [address] Performed By: #### L [id number] #### [facility] CLIA [id number] [address] [place] [address] [place] Hematocrit (Bld) [Volume fraction] 30.2 % Low 36.0-46.0 [facility] Comment on above: Order Comment: Speci men Type: BLOOD SPECIMEN Ordering Facility: [facility] Address: [address] [place] [address] Performed By: #### L [id number] #### [facility] CLIA [id number] [address] [place] [address] [place] Hemoglobin (Bld) [Mass/Vol] 10.0 g/dL Low 11.5-15.5 [facility] Comment on above: Order Comment: Speci men Type: BLOOD SPECIMEN Ordering Facility: [facility] Address: [address] [place] [address] Performed By: #### L [id number] #### [facility] CLIA [id number] [address] [place] [address] [place] Immature granulocytes (Bld) [#/Vol] 10*3/uL Normal <0.10 [facility] Comment on above: Order Comment: Speci men Type: BLOOD SPECIMEN Ordering Facility: [facility] Address: [address] [place] [address] Performed By: #### L [id number] #### [facility] CLIA [id number] [address] [place] [address] [place] Immature granulocytes/100 WBC (Bld) 0.2 % Normal [facility] Comment on above: Order Comment: Speci men Type: BLOOD SPECIMEN Ordering Facility: [facility] Address: [address] [place] [address] Performed By: #### L [id number] #### [facility] CLIA [id number] [address] [place] [address] [place] Lymphocytes (Bld) [#/Vol] 1.30 10*3/uL Normal 1.00-4.00 [facility] Comment on above: Order Comment: Speci men Type: BLOOD SPECIMEN Ordering Facility: [facility] Address: [address] [place] [address] Performed By: #### L [id number] #### [facility] CLIA [id number] [address] [place] [address] Lymphocytes/100 WBC (Bld) 28.4 % Normal [facility] Comment on above: Order Comment: Speci men Type: BLOOD SPECIMEN Ordering Facility: [facility] Address: [address] [place] [address] Performed By: #### L [id number] #### [facility] CLIA [id number] [address] [place] MCH (RBC) [Entitic mass] 30.7 pg Normal 26.0-34.0 [facility] Comment on above: Order Comment: Speci men Type: BLOOD SPECIMEN Ordering Facility: [facility] Address: [address] [place] [address] Performed By: #### L [id number] #### [facility] CLIA [id number] [address] [place] MCHC (RBC) [Mass/Vol] 33.1 g/dL Normal 30.5-36.0 [facility] Comment on above: Order Comment: Speci men Type: BLOOD SPECIMEN Ordering Facility: [facility] Address: [address] [place] [address] Performed By: #### L [id number] #### [facility] CLIA [id number] [address] [place] [address] [place] MCV (RBC) [Entitic vol] 92.6 fL Normal 80.0-100.0 [facility] Comment on above: Order Comment: Speci men Type: BLOOD SPECIMEN Ordering Facility: [facility] Address: [address] [place] [address] Performed By: #### L [id number] #### [facility] CLIA [id number] [address] [place] [address] [place] Monocytes (Bld) [#/Vol] 0.41 10*3/uL Normal <0.87 [facility] Comment on above: Order Comment: Speci men Type: BLOOD SPECIMEN Ordering Facility: [facility] Address: [address] [place] [address] Performed By: #### L [id number] #### [facility] CLIA [id number] [address] OF [place] Monocytes/100 WBC (Bld) 9.0 % Normal [facility] Comment on above: Order Comment: Speci men Type: BLOOD SPECIMEN Ordering Facility: [facility] Address: [address] [place] [address] Performed By: #### L [id number] #### [facility] CLIA [id number] [address] [place] [address] [place] Neutrophils (Bld) [#/Vol] 2.61 10*3/uL Normal 1.45-7.50 [facility] Comment on above: Order Comment: Speci men Type: BLOOD SPECIMEN Ordering Facility: [facility] Address: [address] [place] [address] Performed By: #### L [id number] #### [facility] CLIA [id number] [address] [place] [address] [place] Neutrophils/100 WBC (Bld) 57.1 % Normal [facility] Comment on above: Order Comment: Speci men Type: BLOOD SPECIMEN Ordering Facility: [facility] Address: [address] [place] [address] Performed By: #### L [id number] #### [facility] CLIA [id number] [address] [place] [address] [place] Nucleated RBC (Bld) [#/Vol] Normal [facility] Comment on above: Order Comment: Speci men Type: BLOOD SPECIMEN Ordering Facility: [facility] Address: [address] [place] [address] Performed By: #### L [id number] #### [facility] CLIA [id number] [address] [place] [address] [place] Nucleated RBC/100 WBC (Bld) [Ratio] Normal [facility] Comment on above: Order Comment: Speci men Type: BLOOD SPECIMEN Ordering Facility: [facility] Address: [address] [place] [address] Performed By: #### L [id number] #### [facility] CLIA [id number] [address] [place] [address] [place] Platelet mean volume (Bld) [Entitic vol] 9.7 fL Normal 9.0-12.7 [facility] Comment on above: Order Comment: Speci men Type: BLOOD SPECIMEN Ordering Facility: [facility] Address: [address] [place] [address] Performed By: #### L [id number] #### [facility] CLIA [id number] [address] [place] [address] [place] Platelets (Bld) [#/Vol] 157 10*3/uL Normal 150-400 [facility] Comment on above: Order Comment: Speci men Type: BLOOD SPECIMEN Ordering Facility: [facility] Address: [address] [place] [address] Performed By: #### L [id number] #### [facility] CLIA [id number] [address] [place] [address] [facility] RBC (Bld) [#/Vol] 3.26 10*6/uL Low 3.90-5.20 [facility] Comment on above: Order Comment: Speci men Type: BLOOD SPECIMEN Ordering Facility: [facility] Address: [address] [place] [address] Performed By: #### L [id number] #### [facility] CLIA [id number] [address] [place] [address] [facility] WBC (Bld) [#/Vol] 4.57 10*3/uL Normal 3.70-11.00 [facility] Comment on above: Order Comment: Speci men Type: BLOOD SPECIMEN Ordering Facility: [facility] Address: [address] [place] [address] Performed By: #### L [id number] #### [facility] CLIA [id number] [address] [place] [id number] [facility] ECG COMPLETEon 01-07-2024 ECG COMPLETE Ventricular Rate : 9 1 BPM Atrial Rate : 91 BPM P-R Interval : 150 ms QRS Duration : 136 ms Q-T Interval : 420 ms QTC Calculation(Bazett) : 516 ms Calculated P Cushing : 39 degrees Calculated R Cushing : 259 degrees Calculated T Cushing : 58 degrees Atrial-sensed ventricular-paced rhythm ABNORMAL ECG WHEN COMPARED WITH ECG OF 28-Nov-2023 10:20, VENT. RATE HAS DECREASED by 2 bpm Confirmed by MD JOSE VINAYAK ([id number]) on 2024 9:00:32 AM NAME : ANGELICA TORIBIO PID : [id number] : 1950 Gender : Female Race : ORD : [id number] Procedure Date : Jan 07 2024 20:27:53 Edit Date : 2024 09:00:36 Diagnosis: Atrial-sensed ventricular-paced rhythm ABNORMAL ECG WHEN COMPARED WITH ECG OF 28-Nov-2023 10:20, VENT. RATE HAS DECREASED by 2 bpm Confirmed by MD JOSE VINAYAK ([id number]) on 2024 9:00:32 AM Test Reason : cp Location : 191 : [facility] ED Overread By : MD JOSE VINAYAK Edited By : MD JOSE VINAYAK Referred By : [place], Acquired by : YESSICA FRANCIS Normal [facility] ED NOTEon 01-07-2024 ED NOTE HNO ID: [id number] Author: BROOKS CHILDS, RN Service: Emergency Medicine Author Type: Registered Nurse Type: ED Notes Filed: 01/07/2024 20:27 Note Text: Pt c/o chest pain pressure heaviness that started around 1200 today. [place], warm, dry. No apparent distress. Alert and oriented. States feels like indigestion. EKG in room arrival. AV paced rhythm on arrival Normal [facility] HIGH SENSITIVITY TROPONIN T (INITIAL)on 01-07-2024 Troponin T.cardiac High sensitivity method [Mass/Vol] 27 ng/L High <12 [facility] Comment on above: Order Comment: Moise lewis Type: BLOOD SPECIMEN Ordering Facility: [facility] Address: [address] [place] [address] Performed By: #### L [id number] #### [facility] CLIA [id number] [address] [place] [address] HIGH SENSITIVITY TROPONIN T (SECOND)on 01-07-2024 Troponin T.cardiac High sensitivity method [Mass/Vol] 25 ng/L High <12 [facility] Comment on above: Order Comment: Moise lewis Type: BLOOD SPECIMEN Ordering Facility: [facility] Address: [address] [place] [address] Performed By: #### L [id number] #### [facility] CLIA [id number] [address] [place] [address] [facility] [place] XR CHEST 1V FRONTALon [...] normal limits. Other: No acute bony abnormality. Transfer Driver: REESE Transcribe Date/Time: Jan 07 2024 10:22P Dictated by : MITCH CAUSYE MD This examination was interpreted and the report reviewed and electronically signed by: MITCH CAUSEY MD on Jan 07 2024 10:23PM EST [id number] Normal [facility] CNPNon 01-03-2024 CNPN Telephone (INTMWS) ----- ANGELICA TORIBIO ([id number]) 1950 F Date Time Provider Department 01/03/24 [...] pills were prescribed when she was in [facility] hospital and at that time, [facility] also discontinued 2 medications prescribed by pcp. Patient doesn't know which ones were d/c'd. Patient declined appt with pcp office. Asking pcp to please advise and phone patient with reply. [phone] Carmen Johnson MD 01/04/2024 1:32 AM Signed [...] in compression socks for Pt to [facility] and call her when sent. Pt will [...] confused a (more content not included)... Normal [facility] No Panel Informationon 01-02 BLANK _ [facility] Implant Date 11/07/2023 [facility] PACEMAKER CLINIC CHECKon AV Delay Adaptive Paced Minimum (ms) 200 ms [facility] AV Delay Adaptive Sensed Minimum (ms) 170 ms [facility] AV Delay Paced (ms) 100 ms [facility] AV Delay Sensed (ms) [address] [facility] Chema RA Pacing Amplitude (volts) 2.0 V [facility] Chema RA Pacing Polarity BI [facility] Chema RA Pacing Pulse Width (ms) 0.4 ms [facility] Chema RA Sensing Amplitude (mvolts) 0.25 mV [facility] Chema RA Sensing Polarity BI [facility] Chema RV Pacing Amplitude (volts) 2.5 V [facility] Chema RV Pacing Polarity BI [facility] Chema RV Pacing Pulse Width (ms) 0.4 ms [facility] Chema RV Sensing Amplitude (mvolts) 1.5 mV [facility] Chema RV Sensing Polarity BI [facility] Lead1 Mfg [facility] Lead2 Mfg [facility] Location RA [facility] Location RV [facility] Lower Rate (bpm) 60 {beats}/min [facility] Max Sensor Rate (bmp) 130 {beats}/min [facility] Model L311 ACCOLADE MRI [facility] Model 7841 Ingevity+IS-1 [facility] Model 7842 Ingevity+IS-1 [facility] Pacemaker Dependent? YES [facility] Pacing Mode DDDR [facility] PM-Device Mfg BSX [facility] PM-Percent Pacing (A) 0 % [facility] PM-Percent Pacing (V) 100 % [facility] RA Bipolar Impedance ohms 523 ohm [facility] Rhythm CHB, isolated R wave @ VVI 40 [facility] RV Bipolar Impedance ohms 740 ohm [facility] Serial Number [id number] [facility] Serial Number [id number] [facility] Serial Number [id number] [facility] Thresh RA Capture Amplitude (volts) 0.5 V [facility] Thresh RA Capture Duration (ms) 0.4 ms [facility] Thresh RV Capture Amplitude (volts) 0.8 V [facility] Thresh RV Capture Duration (ms) 0.4 ms [facility] Tracking Rate (bpm) 130 {beats}/min [facility] 01/03/2024 Formattin g of this note might be different from the original. PPM check, dual lead system with programming. ID [id number]. Here for 6 week f/u PM evaluation. Pt anxious for today's check. Left chest incision/pocket without signs of infection. Presenting rhythm: /ASBESTOS SURVEYOR @ 88 ppm. Interrogation shows no ventricular [...] CARDIAC DATA AND REPORT, Scanned Documents section. [facility] XR Chest PA and Lateralon IMPRESSION: No acute radiographic abnormality. Transfer Driver: PSCB Transcribe Date/Time: Dec 13 2023 3:04P Dictated by : JUAN ESPINOZA MD This examination was interpreted and the report reviewed and electronically signed by: JUAN ESPINOZA MD on Dec 13 2023 3:05PM [facility] DIVISION OF RADIOLOGY * * *Final Report* [...] soft tissues: Unremarkable. DIVISION OF RADIOLOGY Provider, [facility] - 12/13/2023 * * *Final Report* [...] Unremarkable. IMPRESSION IMPRESSION: No acute radiographic abnormality. Transfer Driver: PSCB Transcribe Date/Time: Dec 13 2023 3:04P Dictated by : JUAN ESPINOZA MD This examination was interpreted and the report reviewed and electronically signed by: JUAN ESPINOZA MD on Dec 13 2023 3:05PM EST [facility] XR Chest PA and LateralOrder ed By: Ccf Provider on 12-13-2023 [facility] CNOVon 12-11-2023 CNOV Office Visit (INTMWS ) ----- ANGELICA TORIBIO ([id number]) 1950 F Date Time Provider Department 12/11/23 2:20 PM CARMEN JOHNSON INTMWS During your visit today, we recorded the following information about you: Temperature Pulse Respiration Blood pressure 97.5 degrees 101/minute 18/minute 138/62 Weight 59.8 kg Carmen Johnson MD 12/17/2023 11:34 PM Signed This note was created using NoteWriter. Subjective Angelica Toribio is a 73 year old female. Patient presents with: ED Follow-up: [facility] follow up 11/27 then transferred to [facility] SUBJECTIVE: Angelica Toribio is a 73 [...] disease, without long-term current use of insulin ([facility]) E11.22 N18.31 Will if improves with staying hydrrated. Monitor sugars. Adjust meds if needed. Suspect dehydration is the issue 2. Hypoglycemia E16.2 COMPREHENSIVE METABOLIC PANEL No further episodes since stopped glimeperide and eating better 3. Primary Hypertension I10 COMPREHENSIVE METABOLIC PANEL COMPLETE BLOOD COUNT BP better on recheck. Was higher at home with nurse checks. Stay on same (more content not included)... Normal [facility] XR CHEST 2V FRONTAL/LATon XR CHEST 2V [...] tissues: Unremarkable. IMPRESSION: No acute radiographic abnormality. Transfer Driver: REESE Transcribe Date/Time: Dec 13 2023 3:04P Dictated by : JUAN ESPINOZA MD This examination was interpreted and the report reviewed and electronically signed by: JUAN ESPINOZA MD on Dec 13 2023 3:05PM EST [id number] Normal [facility] XR Chest PA and Lateralon Radiology Study observation (narrative) [facility] 102on 12-07-2023 102 HNO ID: [id number] Author: MARITA SEWELL HDA Service: ? Author Type: ? Type: 102 Filed: 12/07/2023 09:22 Note Text: CODE STATUS: Full Code Normal [facility] ----- ANGELICA TORIBIO ([id number]) 1950 F Date Time Provider Department 12/06/23 [...] Encounter Status:Closed by ZOIE HAYES on 12/06/23 [facility] 11-29-2023 [facility] ----- ANGELICA TORIBIO ([id number]) 1950 F Date Time Provider Department 11/29/23 [...] 12/26/2014 Re (more content not included)... Normal [facility] Bacteria Ur Culton Bacteria identified Cx Nom (U) CULTURE, URINE: 50,000-<100,000 CFU/ml Normal [facility] ORGANISM ID: 1 <10,000 CFU/ml Gram negative bacilli Insignificant colony count. No further workup. Normal [facility] Comment on above: Performed By: #### 6 30-4 ####[facility] [id number] [place] [address] [place] CBC panel Auto (Bld)on 11-27 Erythrocyte distribution width (RBC) [Ratio] 13.0 % Normal 11.5-15.0 [facility] Comment on above: Order Comment: Speci men Type: BLOOD SPECIMEN Ordering Facility: [facility] Address: [address] [place] [address] Performed By: #### 5 8410-2 #### [facility] CLIA [id number] [address] [place] [address] STATES OF [facility] Hematocrit (Bld) [Volume fraction] 34.4 % Low 36.0-46.0 [facility] Comment on above: Order Comment: Speci men Type: BLOOD SPECIMEN Ordering Facility: [facility] Address: [address] [place] [address] Performed By: #### 5 8410-2 #### [facility] CLIA [id number] [address] [place] [address] [place] OF [facility] Hemoglobin (Bld) [Mass/Vol] 11.4 g/dL Low 11.5-15.5 [facility] Comment on above: Order Comment: Speci men Type: BLOOD SPECIMEN Ordering Facility: [facility] Address: [address] [place] [address] Performed By: #### 5 8410-2 #### [facility] CLIA [id number] [address] [place], [place] [address] [place] [address] OF [facility] MCH (RBC) [Entitic mass] 31.1 pg Normal 26.0-34.0 [facility] Comment on above: Order Comment: Speci men Type: BLOOD SPECIMEN Ordering Facility: [facility] Address: [address] [place] [address] Performed By: #### 5 8410-2 #### [facility] CLIA [id number] [address] STATES [place] MCHC (RBC) [Mass/Vol] 33.1 g/dL Normal 30.5-36.0 [facility] Comment on above: Order Comment: Speci men Type: BLOOD SPECIMEN Ordering Facility: [facility] Address: [address] [place] [address] Performed By: #### 5 8410-2 #### [facility] CLIA [id number] [address] [place] [address] [place] MCV (RBC) [Entitic vol] 93.7 fL Normal 80.0-100.0 [facility] Comment on above: Order Comment: Speci men Type: BLOOD SPECIMEN Ordering Facility: [facility] Address: [address] [place] [address] Performed By: #### 5 8410-2 #### [facility] CLIA [id number] [address] [place] [address] OF [place] Platelet mean volume (Bld) [Entitic vol] 10.1 fL Normal 9.0-12.7 [facility] Comment on above: Order Comment: Speci men Type: BLOOD SPECIMEN Ordering Facility: [facility] Address: [address] [place] [address] Performed By: #### 5 8410-2 #### [facility] CLIA [id number] [address] [place] [address] [facility] Platelets (Bld) [#/Vol] 204 10*3/uL Normal 150-400 [facility] Comment on above: Order Comment: Speci men Type: BLOOD SPECIMEN Ordering Facility: [facility] Address: [address] [place] [address] Performed By: #### 5 8410-2 #### [facility] CLIA [id number] [address] RBC (Bld) [#/Vol] 3.67 10*6/uL Low 3.90-5.20 [facility] Comment on above: Order Comment: Speci men Type: BLOOD SPECIMEN Ordering Facility: [facility] Address: [address] [place] [address] Performed By: #### 5 8410-2 #### [facility] CLIA [id number] [address] WBC (Bld) [#/Vol] 6.56 10*3/uL Normal 3.70-11.00 [facility] Comment on above: Order Comment: Speci men Type: BLOOD SPECIMEN Ordering Facility: [facility] Address: [address] [place] [address] Performed By: #### 5 8410-2 #### [facility] CLIA [id number] [address] [place], [place] [address] [place] [address] CNPAlexa 11-28-2023 CNPN Telephone (INTMWS) ----- ANGELICA TORIBIO ([id number]) 1950 F Date Time Provider Department 11/28/23 [...] Assessed Reason for Visit: Call From ER [[id number]] Cmt: Dr. Espinosa Prescriptions as of 11/29/2023 [...] pacemaker [Z (more content not included)... Normal [facility] Comprehensive metabolic 2000 panelon 11-28-2023 Albumin [Mass/Vol] 4.2 g/dL Normal 3.9-4.9 [facility] Comment on above: Order Comment: Speci men Type: BLOOD SPECIMEN Ordering Facility: [facility] Address: [address] [place] [address] Performed By: #### 2 4323-8 #### [facility] CLIA [id number] [address] [place] [address] [place] ALP [Catalytic activity/Vol] 80 U/L Normal 34-123 [facility] Comment on above: Order Comment: Speci men Type: BLOOD SPECIMEN Ordering Facility: [facility] Address: [address] [place] [address] Performed By: #### 2 4323-8 #### [facility] CLIA [id number] [address] [place] [address] [place] ALT With P-5'-P [Catalytic activity/Vol] 10 U/L Normal 7-38 [facility] Comment on above: Order Comment: Speci men Type: BLOOD SPECIMEN Ordering Facility: [facility] Address: [address] [place] [address] Performed By: #### 2 4323-8 #### [facility] CLIA [id number] [address] [place] [address] [place] Anion gap [Moles/Vol] 13 mmol/L Normal 8-15 [facility] Comment on above: Order Comment: Speci men Type: BLOOD SPECIMEN Ordering Facility: [facility] Address: [address] [place] [address] Performed By: #### 2 4323-8 #### [facility] CLIA [id number] [address] [place] [address] [place] AST With P-5'-P [Catalytic activity/Vol] 24 U/L Normal 13-35 [facility] Comment on above: Order Comment: Speci men Type: BLOOD SPECIMEN Ordering Facility: [facility] Address: [address] [place] [address] Performed By: #### 2 4323-8 #### [facility] CLIA [id number] [address] [place] [address] [place] Bilirubin [Mass/Vol] 1.0 mg/dL Normal 0.2-1.3 [facility] Comment on above: Order Comment: Speci men Type: BLOOD SPECIMEN Ordering Facility: [facility] Address: [address] [place] [address] Performed By: #### 2 4323-8 #### [facility] CLIA [id number] [address] [place] [address] [place] Calcium [Mass/Vol] 9.6 mg/dL Normal 8.5-10.2 [facility] Comment on above: Order Comment: Speci men Type: BLOOD SPECIMEN Ordering Facility: [facility] Address: [address] [place] [address] Performed By: #### 2 4323-8 #### [facility] CLIA [id number] [address] [place] [address] [place] Chloride [Moles/Vol] 107 mmol/L Normal 98-107 [facility] Comment on above: Order Comment: Speci men Type: BLOOD SPECIMEN Ordering Facility: [facility] Address: [address] [place] [address] Performed By: #### 2 4323-8 #### [facility] CLIA [id number] [address] [place] [address] [place] CO2 [Moles/Vol] 22 mmol/L Normal 22-30 [facility] Comment on above: Order Comment: Speci men Type: BLOOD SPECIMEN Ordering Facility: [facility] Address: [address] [place] [address] Performed By: #### 2 4323-8 #### [facility] CLIA [id number] [address] [place] [address] [place] Creatinine [Mass/Vol] 1.05 mg/dL High 0.58-0.96 [facility] Comment on above: Order Comment: Speci men Type: BLOOD SPECIMEN Ordering Facility: [facility] Address: [address] [place] [address] Performed By: #### 2 4323-8 #### [facility] CLIA [id number] [address] [place] [address] [place] Creatinine and Glomerular filtration rate.predicted panel (S/P/Bld) 57 mL/min/1.73m??? Low >=60 [facility] Comment on above: Order Comment: Moise lewis Type: BLOOD SPECIMEN Ordering Facility: [facility] Address: [address] [place] [address] Result Comment: Coral mated Glomerular Filtration Rate [...] GFR. Performed By: #### 2 4323-8 #### [facility] CLIA [id number] [address] [place], [place] [address] [place] Glucose [Mass/Vol] 108 mg/dL High 74-99 [facility] Comment on above: Order Comment: Moise lewis Type: BLOOD SPECIMEN Ordering Facility: [facility] Address: [address] [place] [address] Result Comment: The [place] Diabetes Association (ADA) provides guidance for cutoff [...] Standards of Medical Care in Diabetes 2016, [place] Diabetes Association. Diabetes Care. 2016.39(Suppl 1). Performed By: #### 2 4323-8 #### [facility] CLIA [id number] [address] [place] [address] [place] Potassium [Moles/Vol] 3.9 mmol/L Normal 3.7-5.1 [facility] Comment on above: Order Comment: Moise lewis Type: BLOOD SPECIMEN Ordering Facility: [facility] Address: [address] [place] [address] Performed By: #### 2 4323-8 #### [facility] CLIA [id number] [address] [place] [address] [place] Protein [Mass/Vol] 7.2 g/dL Normal 6.3-8.0 [facility] Comment on above: Order Comment: Speci men Type: BLOOD SPECIMEN Ordering Facility: [facility] Address: [address] [place] [address] Performed By: #### 2 4323-8 #### [facility] CLIA [id number] [address] [place] [address] [place] Sodium [Moles/Vol] 142 mmol/L Normal 136-144 [facility] Comment on above: Order Comment: Speci men Type: BLOOD SPECIMEN Ordering Facility: [facility] Address: [address] [place] [address] Performed By: #### 2 4323-8 #### [facility] CLIA [id number] [address] [place] [address] [place] Urea nitrogen [Mass/Vol] 22 mg/dL High 7-21 [facility] Comment on above: Order Comment: Speci men Type: BLOOD SPECIMEN Ordering Facility: [facility] Address: [address] [place] [address] Performed By: #### 2 4323-8 #### [facility] CLIA [id number] [address] [place] [address] [place] ECG COMPLETEon 11-28-2023 ECG COMPLETE Ventricular Rate : 9 3 BPM Atrial Rate : 93 BPM P-R Interval : 160 ms QRS Duration : 132 ms Q-T Interval : 426 ms QTC Calculation(Bazett) : 529 ms Calculated P Cushing : 39 degrees Calculated R Cushing : 253 degrees Calculated T Cushing : 48 degrees Atrial-sensed ventricular-paced rhythm ABNORMAL ECG NO PREVIOUS ECGS AVAILABLE Confirmed by MD MONTANO VINAY ([id number]) on 11/28/2023 1:05:49 PM NAME : ANGELICA TORIBIO PID : [id number] : 1950 Gender : Female Race : ORD : [id number] Procedure Date : Nov 28 2023 10:20:56 Edit Date : Nov 28 2023 13:05:50 Diagnosis: Atrial-sensed ventricular-paced rhythm ABNORMAL ECG NO PREVIOUS ECGS AVAILABLE Confirmed by MD MONTANO VINAY ([id number]) on 11/28/2023 1:05:49 PM Test Reason : Diabetes Mellitus Unspecified Location : 191 : [facility] ED Overread By : MD MONTANO VINAY Edited By : MD MONTANO VINAY Referred By : , Acquired by : TREY RICHARDS [facility] ED NOTEon 11-28-2023 ED NOTE HNO ID: [id number] Author: RACHELLE OHARA RN Service: ? Author Type: Registered Nurse Type: ED Notes Filed: 11/28/2023 14:51 Note Text: Dr. Espinosa reviewed D/c instructions with pt who verbalized understanding. Pt's vss and left ER via wheelchair and in stable condition with partner. [facility] ED NOTE HNO ID: [id number] Author: DAVE COX RN Service: Emergency Medicine [...] do anything else to help you? No [facility] ED NOTE HNO ID: [id number] Author: RACHELLE OHARA RN Service: ? Author [...] at this time. Dr. Espinosa notified. Normal [facility] ED NOTE HNO ID: [id number] Author: RACHELLE OHARA RN Service: ? Author Type: Registered Nurse Type: ED Notes Filed: 11/28/2023 11:14 Note Text: Pt's BS 88. Pt eating a peanut butter apple sandwich and juice. Dr. Espinosa notified Normal [facility] ED NOTE HNO ID: [id number] Author: ANGELICA DYE RN Service: ? Author Type: Registered Nurse Type: ED Notes Filed: 11/28/2023 10:01 Note Text: Pt arrives via [facility] sitting upright on cot Awake and alert Denies pain Per EMS and significant other pt passed out and fell onto floor EMS reports blood sugar of 34, state D10 given, with repeat blood sugar of 131 Pt placed on ekg monitor tech Normal [facility] ED PROV NOTEon 11-28-2023 ED PROV NOTE HNO ID: [id number] Author: HENOK ESPINOSA MD Service: Emergency Medicine [...] the couch and when he tried to solutions architect her body was limp and she started [...] DM type 2 (diabetes mellitus, type 2) ([facility]) Edema Other malaise and fatigue Unspecified essential hypertension PAST SURGICAL HISTORY Procedure Laterality Date BASIC PACEMAKER DUAL CHAMBER Left 11/07/2023 [employer] dual PPM for CHB; Dr. Orozco at [facility] TOTAL ABDOMINAL HYSTERECT W/WO RMVL TUBE OVARY 06/12/1992 Hysterectomy, Partial-one ovary left FAMILY HISTORY Problem Relation Age of Onset Heart Father [place] Osteoporosis Mother ? Social History Tobacco Use [...] gallop. Pulmona (more content not included)... Normal [facility] HIGH SENSITIVITY TROPONIN T (INITIAL)on 11-28-2023 Troponin T.cardiac High sensitivity method [Mass/Vol] 34 ng/L High <12 [facility] Comment on above: Order Comment: Moise lewis Type: BLOOD SPECIMEN Ordering Facility: [facility] Address: [address] [place] [address] Result Comment: When assessing risk for acute [...] 30 day MACE. Performed By: #### L [id number] #### [facility] CLIA [id number] [address] [place] [address] HIGH SENSITIVITY TROPONIN T (SECOND)on 11-28-2023 Troponin T.cardiac High sensitivity method [Mass/Vol] 34 ng/L High <12 [facility] Comment on above: Order Comment: Moise lewis Type: BLOOD SPECIMEN Ordering Facility: [facility] Address: [address] [place] [address] Result Comment: When assessing risk for acute [...] 30 day MACE. Performed By: #### L [id number] #### [facility] CLIA [id number] [address] HIGH SENSITIVITY TROPONIN T (THIRD) 3 HRS AFTER INITIALon 11-28-2023 Troponin T.cardiac High sensitivity method [Mass/Vol] 33 ng/L High <12 [facility] Comment on above: Order Comment: Moise lewis Type: BLOOD SPECIMEN Ordering Facility: [facility] Address: [address] [place] [address] Result Comment: When assessing risk for acute [...] 30 day MACE. Performed By: #### L [id number] #### [facility] CLIA [id number] [address] [place] [address] Urinalysis complete panel (U )on 11-28-2023 Bacteria LM.HPF (Urine sed) [#/Area] Few Abnormal None Seen [facility] Comment on above: Order Comment: Moise lewis Type: BLOOD SPECIMEN Ordering Facility: [facility] Address: [address] [place] [address] Performed By: #### L [id number] #### [facility] CLIA [id number] [address] [place] [address] Bilirubin Ql (U) 1+ Abnormal Negative [facility] Comment on above: Order Comment: Moise lewis Type: BLOOD SPECIMEN Ordering Facility: [facility] Address: [address] [place] [address] Result Comment: Sugg est correlation with clinical findings and serum bilirubin if clinically indicated. Performed By: #### L [id number] #### [facility] CLIA [id number] [address] [place] [address] [place] Clarity (Unsp spec) Clear Normal Clear [facility] Comment on above: Order Comment: Moise lewis Type: BLOOD SPECIMEN Ordering Facility: [facility] Address: [address] [place] [address] Performed By: #### L [id number] #### [facility] CLIA [id number] [address] [place] [address] [place] Color (U) Yellow Normal Yellow [facility] Comment on above: Order Comment: Speci men Type: BLOOD SPECIMEN Ordering Facility: [facility] Address: [address] [place] [address] Performed By: #### L [id number] #### [facility] CLIA [id number] [address] [place] [address] [place] Epithelial cells LM.HPF (Urine sed) [#/Area] Few Normal [facility] Comment on above: Order Comment: Speci men Type: BLOOD SPECIMEN Ordering Facility: [facility] Address: [address] [place] [address] Performed By: #### L [id number] #### [facility] CLIA [id number] [address] [place] [address] [place] Glucose Test strip (U) [Mass/Vol] Negative Normal Negative [facility] Comment on above: Order Comment: Speci men Type: BLOOD SPECIMEN Ordering Facility: [facility] Address: [address] [place] [address] Performed By: #### L [id number] #### [facility] CLIA [id number] [address] [place] [address] [place] Hemoglobin Ql (U) 1+ Abnormal Negative [facility] Comment on above: Order Comment: Speci men Type: BLOOD SPECIMEN Ordering Facility: [facility] Address: [address] [place] [address] Performed By: #### L [id number] #### [facility] CLIA [id number] [address] [place] [address] [place] Ketones Ql (U) 2+ Abnormal Negative [facility] Comment on above: Order Comment: Speci men Type: BLOOD SPECIMEN Ordering Facility: [facility] Address: [address] [place] [address] Performed By: #### L [id number] #### [facility] CLIA [id number] [address] Leukocyte esterase Test strip Ql (U) Trace Abnormal Negative [facility] Comment on above: Order Comment: Speci men Type: BLOOD SPECIMEN Ordering Facility: [facility] Address: [address] [place] [address] Performed By: #### L [id number] #### [facility] CLIA [id number] [address] Nitrite Ql (U) Negative Normal Negative [facility] Comment on above: Order Comment: Speci men Type: BLOOD SPECIMEN Ordering Facility: [facility] Address: [address] [place] [address] Performed By: #### L [id number] #### [facility] CLIA [id number] [address] [place] [address] pH (U) 5.5 [pH] Normal 5.0-8.0 [facility] Comment on above: Order Comment: Speci men Type: BLOOD SPECIMEN Ordering Facility: [facility] Address: [address] [place] [address] Performed By: #### L [id number] #### [facility] CLIA [id number] [address] [place] [address] Protein (U) [Mass/Vol] 2+ Abnormal Negative [facility] Comment on above: Order Comment: Speci men Type: BLOOD SPECIMEN Ordering Facility: [facility] Address: [address] [place] [address] Performed By: #### L [id number] #### [facility] CLIA [id number] [address] [place] [address] RBC LM.HPF (Urine sed) [#/Area] 6-10 /HPF Abnormal 0-3 /HPF [facility] Comment on above: Order Comment: Speci men Type: BLOOD SPECIMEN Ordering Facility: [facility] Address: [address] [place] [address] Performed By: #### L [id number] #### [facility] CLIA [id number] [address] Specific gravity (U) [Rel density] 1.020 Normal 1.005-1.030 [facility] Comment on above: Order Comment: Speci men Type: BLOOD SPECIMEN Ordering Facility: [facility] Address: [address] [place] [address] Performed By: #### L [id number] #### [facility] CLIA [id number] [address] [place] [address] Urobilinogen Ql (U) 0.2 EU/dL Normal 0.2-1.0 EU/dL [facility] Comment on above: Order Comment: Speci men Type: BLOOD SPECIMEN Ordering Facility: [facility] Address: [address] [place] [address] Performed By: #### L [id number] #### [facility] CLIA [id number] [address] [place] [address] WBC LM.HPF (Urine sed) [#/Area] 0-5 /HPF Normal 0-5 /HPF [facility] Comment on above: Order Comment: Speci men Type: BLOOD SPECIMEN Ordering Facility: [facility] Address: [address] [place] [address] Performed By: #### L [id number] #### [facility] CLIA [id number] [address] [place] [address] Yeast.budding LM.HPF (Urine sed) [#/Area] Few Abnormal None Seen [facility] Comment on above: Order Comment: Speci men Type: BLOOD SPECIMEN Ordering Facility: [facility] Address: [address] [place] [address] Performed By: #### L [id number] #### [facility] CLIA [id number] [address] [place] [address] [place] XR CHEST 1V FRONTALon 2023 [...] bony abnormalities. IMPRESSION: No acute radiographic abnormality. Transfer Driver: PSCB Transcribe Date/Time: Nov 28 2023 11:28A Dictated by : RYAN LYN MD This examination was interpreted and the report reviewed and electronically signed by: RYAN LYN MD on Nov 28 2023 11:29AM EST [id number] Normal [facility]) [facility] ANGELICA TORIBIO ([id number]) 1950 F Date Time Provider Department 11/24/23 ALVARO MEDINA HCSIND During your visit today, we recorded the following information about you: Alvaro Medina LSW 11/24/2023 11:41 AM Signed 11/24/23 [employer] called the pt. regarding [employer] visit and community resources. 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 [employer] discussed with the pt. regarding needing more help in the home. The pt. stated she did not need more help and that her boyfriend lives with her and he assists her. [employer] asked the pt. about transportation. The pt. stated she needs transportation to the grocery store. She discussed with [employer] that her and her boyfriend took a taxi to [facility] the other day and she did not feel good and was taken to the ER and she stated she was not admitted. The pt. stated they ate at [facility]. The pt. stated that Keisha the Nurse was there yesterday and is coming back on Monday. The pt. stated there was another Nurse before Keisha and she could not think of her name. The pt. was talking with her boyfriend in the background and stated the Nusre was Evelin. [facility] [employer] educated the pt. on [employer] and [facility]. The pt. stated she has used [employer] for Transportation and she stated they were to sign her up with [facility] [employer]. [facility] stated she could call and see if she was registered. The pt. stated she will call [employer] and she has appointments out of [facility]. The pt. aware that [employer] maybe able to transport her out of critical access hospital. [facility] [employer] educated the pt. on the [employer] [facility] providing transportation and the pt. was aware of this and stated she sees their vans around [facility]. [facility] discussed with the pt. she would have to pay for transportation through [employer]. [facility] asked the pt. if she was managing financially and she stated she gets Social Security and denied any financial stress. [facility] asked the pt. about her bathing and needing more help. [employer] educated the pt. on [employer]/[facility] [employer]. The pt. stated she was aware of [employer] and did not need more help. She feels they can amanage their own meals. The pt. was supportive for [employer] to mail her information on Transportation services in [facility]. [facility] [employer] [employer] provided the pt. with her name and phone number to call with any needs. 11/24/23 [employer] [employer] [employer] mailed the pt. information on Transportation Services in [facility]-[employer] [place]- [facility], [employer] [facility], information on [facility] Agency on Aging and the Aging and [...] pain, unspec (more content not included)... Normal [facility] CNPNon 11-23-2023 CNPN Telephone (HCSIND) ----- ANGELICA TORIBIO ([id number]) 1950 F Date Time Provider Department 11/23/23 [...] by EVELIN MARTINEZ on 11/23/23 [facility] CNPNon 11-20-2023 CNPN Telephone (HCSIND) ----- ANGELICA TORIBIO ([id number]) 1950 F Date Time Provider Department 11/20/23 [...] by EVELIN MARTINEZ on 11/20/23 [facility] Agustina 11-19-2023 CNPN Telephone (HCSIND) ----- ANGELICA TORIBIO ([id number]) 1950 F Date Time Provider Department 11/19/23 [...] Assessed Reason for Visit: Home Care Arrangements [[id number]] Prescriptions as of 11/19/2023 - amLODIPine (NORVASC) [...] by EVELIN MARTINEZ on 11/19/23 [facility] Agustina 11-17-2023 MARTIN Telephone (HCSIND) ----- NATHANIELANGELICA Marium ([id number]) 1950 F Date Time Provider Department 11/17/23 [...] by MISTY STOVER on 11/17/23 [facility] CNPN Telephone (HCSIND) ----- ANGELICA TORIBIO ([id number]) 1950 F Date Time Provider Department 11/17/23 XIMENA DEVLIN During your visit today, we recorded the following information about you: Ximena Devlin LPN 11/17/2023 2:23 PM Signed Carmen Johnson MD Patient declined initially planned visit on 11/15/23. [facility] is planning on initiating services on [...] Encounter Status:Closed by [facility] ANGELICA TORIBIO ([id number]) 1950 F Date Time Provider Department 11/17/23 [...] by FLORA FRANCISCO on 11/17/23 [facility] CNCOon 11-16-2023 CNCO Letter Text Normal [facility] CNPNon 11-16-2023 CNPN Telephone (HCSIND) ----- ANGELICA TORIBIO ([id number]) 1950 F Date Time Provider Department 11/16/23 CARMEN JOHNSON HCSIND During your visit today, we recorded the following information about you: Navarro Cody 11/16/2023 10:35 AM Signed Called patient to confirm and schedule start of care visit. No answer. No message left. Thanks Navarro Cody, Beef Lugger Allergies As of Date: 11/16/2023 Noted Allergy [...] Status:Closed by NAVARRO CODY on 11/16/23 [facility] H[facility]: [id number] Author: HELEN DAVIS MD Service: Hospital Medicine [...] annual follow up with Dr. Orozco or CLOSET ORGANIZER. When: In 1 week Patient/Parents to call for appointment?: No Noman Orozco MD [phone] [address] [address] [facility] [address] PCP Requested Referral Follow-Up Appointment Device check 12/21/2023 With: [facility] device clinic When: In 6 weeks Patient/Parents to call for appointment?: Scheduled Follow-Up Appointment Hospital follow up When: In 1 week Patient/Parents to call for appointment?: Yes Carmen Johnson MD [phone] [address] [facility] [address] PCP Requested Referral Additional Provider to (more content not included)... Normal [facility] CNPNon 11-15-2023 CNP Telephone (HCSIND) ----- ANGELICA TORIBIO ([id number]) 1950 F Date Time Provider Department 11/15/23 ISRAEL VIDAL HCSIND During your visit today, we recorded the following information about you: Israel Vidal 11/15/2023 9:18 AM Signed Date/Time: 11/15/2023 9:14 AM Spoke with Angelica @ phone #: [phone] - Preferred # for contact: [phone] Have you received help from a home care company in the last 60 days? no Are you agreeable to [facility] services? yes What address will we be seeing you at? [address] [facility] [address] Do you have any upcoming appointments or [...] (HCC) [E44. (more content not included)... Normal [facility] CASE MANAGEMon 11-14-2023 CASE MANAGEM HNO ID: [id number] Author: CAROLE HANSEN LSW Service: ? Author Type: Enrollment Clerk Type: Care Mgt Progress Note Filed: 11/14/2023 15:21 Note Text: CARE MANAGEMENT PROGRESS NOTE SERVICE DATE: 11/14/2023 SERVICE TIME: 3:19 PM LOS: 9 days SW called [facility] through [facility] ([phone]) due to mentation and altered mental status during this hospital admission, self neglect, trouble determining if this is pts baseline mentation at home, no living family, no emergency contact, potential risk for safety of self at home. Per [facility], this SW is to call back upon time for d/c, and re-report this information. SIGNATURE: LM Alcazar PATIENT NAME: Angelica Toribio DATE: November 14, 2023 TIME: 3:19 PM PAGER/CONTACT #: [phone] [facility] 11-14-2023 [facility] Telephone (HCSIND) ----- ANGELICA TORIBIO ([id number]) 1950 F Date Time Provider Department 11/14/23 [...] care clinicians may also obtain [facility] from [facility] Providers Thank you and we would be [...] (HCC) [I44.2 (more content not included)... Normal [facility] CONSULT PROGon 11-14-2023 CONSULT PROG HNO ID: [id number] Author: RHONDA BRADLEY MD Service: Psychiatry Author [...] holidays AND weekends, call answering service at [phone] SERVICE DATE: November 14, 2023 SERVICE TIME: [...] 19.3 02/09/2016 (more content not included)... Normal [facility] NUTRITIONon 11-13-2023 NUTRITION HNO ID: [id number] Author: MIMI VAUGHN RD Service: Nutrition Therapy Author Type: Registered Dietitian Type: Nutrition Filed: 11/13/2023 14:11 Note Text: NUTRITION THERAPY INITIAL ASSESSMENT NUTRITION THERAPY: TEACHING DIETITIAN NOTE OF PERSONAL INVOLVEMENT OF CARE. I have reviewed and agree with the assessment as documented by the continuous improvement intern. I have discussed the case and management of the patient?s nutrition therapy with the continuous improvement intern. SERVICE DATE: 11/13/2023 SERVICE TIME: 11:00 AM [...] 45.4 kg (100 lb) Dosing Weight Type: [place] body weight Estimated kilocalorie needs: 1136 - [...] $ Initial Assessment: 1-15 minutes SIGNATURE: Catarina Mionr Sales Agent [employer] PATIENT NAME: Angelica Toribio DATE: November 13, 2023 TIME: 11:00 AM SIGNATURE: Mimi Vaughn RD DATE: November 13, 2023 TIME: 2:[address] [facility] THERAPY NTon 11-13-2023 THERAPY NT HNO ID: [id number] Author: TANIA RAINES, OTR/L Service: Occupational Therapy Author Type: Occupational Therapist Type: Therapy (PT/OT/Speech/Resp) Filed: 11/13/2023 11:08 Note Text: Occupational Therapy Evaluation Summary SERVICE DATE: 11/13/2023 SERVICE TIME: 0956 to 1041 ROOM: [id number] Clicks Score: 19 DISCHARGE RECOMMENDATIONS [...] she previously lived with boyfriend in [address] with a few LEONARD. States she [...] daily living (ADL) TREATMENT INTERVENTIONS Evaluation, Self Chcf Management (59564) Timed Code Treatment (minutes): 25 Skilled Treatment Time (minutes): 40 $ Evaluation - Moderate (45417) Billed Units: 1 unit Self Chcf Management (24676) Treatment Minutes: 25 $ Self [facility]cf Management (03954) Billed Units: 2 units TRAINING AND EDUCATION PROVIDED Activity Adaptation/Compensatory Strategies, Assistive Device Use, Adaptive Equipment/DME, Bed Mobility, Benefits of In-Hospital Mobility, Cognitive Skills, Delirium Reduction Techniques, Discharge Planning, Disease Specific Education, Expected Functional Level, Functional Mobility Involving ADLs, IADLs/Home Management, Precautions/Restrictions, Role of Occupational Therapy, Safety/Judgment, Orientation, Sitting Balance to Improve Elbert with ADLs/Self-Care, Standing Balance to Improve Elbert with ADLs/Self-Care, Transfer - Sit to Stand, [...] Strength Limitation (more content not included)... Normal [facility] CNCOon 11-08-2023 CNCO Letter Text Normal [facility] No Panel Informationon 11-07 BLANK _ [facility] Implant Date 11/07/2023 [facility] PACEMAKER CLINIC CHECKon AV Delay Adaptive Paced Minimum (ms) 200 ms [facility] AV Delay Adaptive Sensed Minimum (ms) 170 ms [facility] AV Delay Paced (ms) 100 ms [facility] AV Delay Sensed (ms) [address] [facility] Chema RA Pacing Amplitude (volts) 3.5 V [facility] Chema RA Pacing Polarity BI [facility] Chema RA Pacing Pulse Width (ms) 0.4 ms [facility] RA Sensing Amplitude (mvolts) 0.25 mV [facility] Chema RA Sensing Polarity BI [facility] Chema RV Pacing Amplitude (volts) 3.5 V [facility] Chema RV Pacing Polarity BI [facility] RV Pacing Pulse Width (ms) 0.4 ms [facility] RV Sensing Amplitude (mvolts) 1.5 mV [facility] Chema RV Sensing Polarity BI [facility] Lead1 Mfg [facility] Lead2 Mfg [facility] Location RA [facility] Location RV [facility] Lower Rate (bpm) 60 {beats}/min [facility] Max Sensor Rate (bmp) 130 {beats}/min [facility] Model L311 ACCOLADE MRI [facility] Model 7841 Ingevity+IS-1 [facility] Model 7842 Ingevity+IS-1 [facility] Pacemaker Dependent? YES [facility] Pacing Mode DDDR [facility] PM-Device Mfg BSX [facility] PM-Percent Pacing (A) 1 % [facility] PM-Percent Pacing (V) 100 % [facility] RA Bipolar Impedance ohms 543 ohm [facility] Rhythm CHB, no R waves @ VVI 40 [facility] RV Bipolar Impedance ohms 764 ohm [facility] Serial Number [id number] [facility] Serial Number [id number] [facility] Serial Number [id number] [facility] Thresh RA Capture Amplitude (volts) 0.5 V [facility] Thresh RA Capture Duration (ms) 0.4 ms [facility] Thresh RV Capture Amplitude (volts) 0.6 V [facility] Thresh RV Capture Duration (ms) 0.4 ms [facility] Thresh RV Sensing Amplitude (mvolts) paced [facility] Tracking Rate (bpm) 130 {beats}/min [facility] PPM check, dual lead system with programming. Patient ID x 2 for PM check 1st day post implant. Left chest gauze/tegaderm drsg intact, no hematoma or drainage noted. Ice sandie on. Presenting rhythm /ASBESTOS SURVEYOR @ 76 ppm; RV pacing 100% of [...] drainage noted. Ice sandie on. Presenting rhythm /ASBESTOS SURVEYOR @ 76 ppm; RV pacing 100% of [...] CARDIAC DATA AND REPORT, Scanned Documents section. [facility] URINE CULTUREon 10-17-2022 Bacteria identified Cx Nom (U) >=100,000 CFU/ml Klebsiella pneumoniae Abnormal [facility] UA DIP, URINE (POC)on 2022 BILIRUBIN UA (POCT) Negative Negative [facility] CLARITY UA (POCT) Cloudy [facility] COLOR UA (POCT) Other [facility] GLUCOSE UA (POCT) Negative Negative mg/dL [facility] HEMOGLOBIN/BLOOD UA (POCT) Trace-intact Abnormal Negative [facility] KETONE UA (POCT) Negative Negative mg/dL [facility] LEUKOCYTES UA (POCT) Small Abnormal Negative [facility] NITRITE UA (POCT) Positive Abnormal Negative [facility] PH UA (POCT) 6.0 4.5 - 8.0 [facility] Protein Ql (U) 100 mg/dL Abnormal Negative mg/dL [facility] SPECIFIC GRAVITY UA (POCT) 1.020 1.005 - 1.030 [facility] UROBILINOGEN UA (POCT) 0.2 E.U./dL Kaycee l E.U./dL [facility] URINE CULTUREon 10-14-2022 Bacteria identified Cx Nom (U) Invalid Interpretation Code [facility] Absolute lymphocyte countOrd ered By: Heidi Lance on 08-11-2022 Lymphocytes Auto (Unsp spec) [#/Vol] 0.93 10*3/uL 0.83-4.51 [facility] Basophil percentageOrdered B y: Heidi Lance on 08-11-2022 Basophil percentage 2.2 mg/dL 2.5-4.9 [facility] Basophils/100 WBC (Bld) 0.5 % 0-1 [facility] Chloride [Moles/Vol] 109 mmol/L 98-107 [facility] Eosinophils/100 WBC (Bld) 2.3 % 0-5 [facility] Glucose [Mass/Vol] 105 mg/dL 74-106 [facility] Comment on above: Fasting Glucose resu lt from 100 to 125 mg/dL suggests IMPAIRED HOMEOSTASIS per A.D.A. criteria. Neutrophils (Bld) [#/Vol] 4.0 10*3/uL 2.0-7.7 [facility] Neutrophils/100 WBC (Bld) 71.5 % 47-70 [facility] Potassium [Moles/Vol] 3.4 mmol/L 3.5-5.1 [facility] Sodium [Moles/Vol] 141 mmol/L 136-145 [facility] WBC (Bld) [#/Vol] 5.6 10*3/uL 4.4-11.0 [facility] Blood erythrocytes count (nu mber/volume)Ordered By: Hedii Lance on 08-11-2022 RBC (Bld) [#/Vol] 3.50 10*6/uL 4.2-5.4 [facility] Blood hemoglobin measurement (mass/volume)Ordered By: Heidi Lance on 08-11-2022 Hemoglobin (Bld) [Mass/Vol] 10.7 g/dL 12.0-15.0 [facility] Blood lymphocytes/100 leukoc ytesOrdered By: Heidi Lance on 08-11-2022 Lymphocytes/100 WBC (Bld) 16.7 % 19-41 [facility] Blood monocytes/100 leukocyt esOrdered By: Heidi Lance on 08-11-2022 Monocytes/100 WBC (Bld) 8.8 % 0-10 [facility] Blood platelet mean volumeOr dered By: Heidi Lance on 08-11-2022 Platelet mean volume (Bld) [Entitic vol] 10.2 fL 6.2-12.0 [facility] Determination of erythrocyte mean corpuscular volume (MCV)Ordered By: Heidi Lance on 08-11-2022 MCV (RBC) [Entitic vol] 93.1 fL 81-99 [facility] Glucose Glucometer (dC) [M ass/Vol]Ordered By: Dr. Sosa on 08-11-2022 Glucose [Mass/Vol] 109 mg/dL 74-106 [facility] Comment on above: MANAGEMENT OF PATIEN T CARE PER NURSING PROTOCOL Hematocrit Auto (Bld) [Volum e fraction]Ordered By: Heidi Lance on 08-11-2022 Hematocrit (Bld) [Volume fraction] 32.6 % 37-47 [facility] - Chemistry and C hemistry - challengeOrdered By: Heidi Lance on 08-11-2022 CO2 [Moles/Vol] 22.0 mmol/L 21.0-32.0 [facility] Magnesium [Mass/Vol] 1.9 mg/dL 1.6-2.6 [facility] Urea nitrogen/Creatinine [Mass ratio] 20.7 mg/mg 10-20 [facility] - Hematology and Cell countsOrdered By: Heidi Lance on 08-11-2022 Erythrocyte distribution width (RBC) [Entitic vol] 43.7 fL 35.1-43.9 [facility] Erythrocyte distribution width (RBC) [Ratio] 12.9 % 11.6-14.6 [facility] Immature granulocytes/100 WBC (Bld) 0.200 % 0.0-0.9 [facility] Comment on above: IG% - Immature Granu locytes (promyelocytes, myelocytes and metamyelocytes) > 1% indicates that a LEFT SHIFT is Present. MCH (RBC) [Entitic mass] 30.6 pg 27.0-32.0 [facility] Nucleated RBC/100 WBC (Bld) [Ratio] 0 % 0-5 [facility] [Mass/Vol]Or dered By: Heidi Lance on 08-11-2022 MCHC (RBC) [Mass/Vol] 32.8 g/dL 32-36 [facility] No Panel InformationOrdered By: Heidi Lance on 08-11-2022 Estimated Creatinine Clearance Calc 42.60 ml/min [facility] Estimated GFR (MDRD) Amer 82 mL/min >60 [facility] Comment on above: GFR Calc Estimated GFR (MDRD) Non-Af Amer 68 mL/min >60 [facility] Comment on above: Non- GFR Calc Platelets bldOrdered By: Oly Lance on 08-11-2022 Platelets (Bld) [#/Vol] 171 10*3/uL 150-450 [facility] Serum or plasma calcium mina urement (mass/volume)Ordered By: Heidi Lance on 08-11-2022 Calcium [Mass/Vol] 8.5 mg/dL 8.5-10.1 [facility] Serum or plasma creatinine m easurement (mass/volume)Ordered By: Heidi Lance on 08-11-2022 Creatinine [Mass/Vol] 0.87 mg/dL 0.55-1.02 [facility] Comment on above: The validity of the calculated GFR & GFRAA in patients over 70 years has not been determined. Clinical correlation is essential. Serum or plasma urea nitroge n measurement (mass/volume)Ordered By: Heidi Lance on 08-11-2022 Urea nitrogen [Mass/Vol] 18 mg/dL 7-18 [facility] Thin prep Papanicolaou smear with manual screeningOrdered By: Heidi Lance on 08-11-2022 Thin prep Papanicolaou smear with manual screening 10 5-15 [facility] Blood manual differential co mment interpretation (narrative result)Ordered By: Dr. Sosa on 08-09-2022 Manual differential comment Long (Bld) [Interp] SCANNED [facility] Whole blood hemoglobin A1c/t otal hemoglobin ratio (mass fraction)Ordered By: Dr. Drummond on 02-27-2023 HbA1c (Bld) [Mass fraction] 5.8 % 3.8-5.6 [facility] Comment on above: Normal < 5.7 % Predi abetic 5.7 - 6.4 % Diabetic >or= 6.5 % Please note range changes. Absolute lymphocyte countOrd ered By: Dr. Dent on 08-06-2022 Lymphocytes Auto (Unsp spec) [#/Vol] 1.81 10*3/uL 0.83-4.51 [facility] Basophil percentageOrdered B y: Dr. Dent on 08-06-2022 Amylase [Catalytic activity/Vol] 100 U/L 25-115 [facility] Basophils/100 WBC (Bld) 0.5 % 0-1 [facility] Bilirubin [Mass/Vol] 0.60 mg/dL 0.20-1.00 [facility] Comment on above: For patients on eltr ombopag therapy, use of Dimension [place] TBIL is not recommended. Chloride [Moles/Vol] 106 mmol/L 98-107 [facility] Eosinophils/100 WBC (Bld) 2.5 % 0-5 [facility] Glucose [Mass/Vol] 125 mg/dL 74-106 [facility] Comment on above: Fasting Glucose resu lt from 100 to 125 mg/dL suggests IMPAIRED HOMEOSTASIS per A.D.A. criteria. Neutrophils (Bld) [#/Vol] 3.4 10*3/uL 2.0-7.7 [facility] Neutrophils/100 WBC (Bld) 56.9 % 47-70 [facility] Potassium [Moles/Vol] 3.4 mmol/L 3.5-5.1 [facility] Protein [Mass/Vol] 7.2 g/dL 6.4-8.2 [facility] Sodium [Moles/Vol] 140 mmol/L 136-145 [facility] WBC (Bld) [#/Vol] 5.9 10*3/uL 4.4-11.0 [facility] Blood erythrocytes count (nu mber/volume)Ordered By: Dr. Dent on 08-06-2022 RBC (Bld) [#/Vol] 4.12 10*6/uL 4.2-5.4 [facility] Blood hemoglobin measurement (mass/volume)Ordered By: Dr. Dent on 08-06-2022 Hemoglobin (Bld) [Mass/Vol] 12.7 g/dL 12.0-15.0 [facility] Blood lymphocytes/100 leukoc ytesOrdered By: Dr. Dent on 08-06-2022 Lymphocytes/100 WBC (Bld) 30.5 % 19-41 [facility] Blood monocytes/100 leukocyt esOrdered By: Dr. Dent on 08-06-2022 Monocytes/100 WBC (Bld) 9.4 % 0-10 [facility] Blood platelet mean volumeOr dered By: Dr. Dent on 08-06-2022 Platelet mean volume (Bld) [Entitic vol] 10.2 fL 6.2-12.0 [facility] Determination of erythrocyte mean corpuscular volume (MCV)Ordered By: Dr. Dent on 08-06-2022 MCV (RBC) [Entitic vol] 93.0 fL 81-99 [facility] Hematocrit Auto (Bld) [Volum e fraction]Ordered By: Dr. Dent on 08-06-2022 Hematocrit (Bld) [Volume fraction] 38.3 % 37-47 [facility] Laboratory - Chemistry and C hemistry - challengeOrdered By: Dr. Dent on 08-06-2022 ALP [Catalytic activity/Vol] 81 U/L 45-117 [facility] ALT [Catalytic activity/Vol] 24 U/L 13-56 [facility] CO2 [Moles/Vol] 30.0 mmol/L 21.0-32.0 [facility] Globulin (S) [Mass/Vol] 3.6 g/dL 2.2-4.2 [facility] Lipase [Catalytic activity/Vol] 201 U/L 73-393 [facility] Urea nitrogen/Creatinine [Mass ratio] 25.2 mg/mg 10-20 [facility] - Hematology and Cell countsOrdered By: Dr. Dent on 08-06-2022 Erythrocyte distribution width (RBC) [Entitic vol] 43.6 fL 35.1-43.9 [facility] Erythrocyte distribution width (RBC) [Ratio] 12.8 % 11.6-14.6 [facility] Immature granulocytes/100 WBC (Bld) 0.200 % 0.0-0.9 [facility] Comment on above: IG% - Immature Granu locytes (promyelocytes, myelocytes and metamyelocytes) > 1% indicates that a LEFT SHIFT is Present. MCH (RBC) [Entitic mass] 30.8 pg 27.0-32.0 [facility] Nucleated RBC/100 WBC (Bld) [Ratio] 0 % 0-5 [facility] MCHC Auto (RBC) [Mass/Vol]Or dered By: Dr. Dent on 08-06-2022 MCHC (RBC) [Mass/Vol] 33.2 g/dL 32-36 [facility] No Panel InformationOrdered By: Dr. Dent on 08-06-2022 Estimated Creatinine Clearance Calc 32.23 ml/min [facility] Estimated GFR (MDRD) Amer 60 mL/min >60 [facility] Comment on above: GFR Calc Estimated GFR (MDRD) Non-Af Amer 49 mL/min >60 [facility] Comment on above: Non- GFR Calc Platelets bldOrdered By: Dr. Dent on 08-06-2022 Platelets (Bld) [#/Vol] 166 10*3/uL 150-450 [facility] Serum or plasma albumin mina urement (mass/volume)Ordered By: Dr. Dent on 08-06-2022 Albumin [Mass/Vol] 3.6 g/dL 3.2-5.0 [facility] Serum or plasma albumin/glob ulin mass ratioOrdered By: Dr. Dent on 08-06-2022 Albumin/Globulin [Mass ratio] 1.0 {ratio} 0.9-2.4 [facility] Serum or plasma calcium mina urement (mass/volume)Ordered By: Dr. Dent on 08-06-2022 Calcium [Mass/Vol] 9.8 mg/dL 8.5-10.1 [facility] Serum or plasma creatinine m easurement (mass/volume)Ordered By: Dr. Dent on 08-06-2022 Creatinine [Mass/Vol] 1.15 mg/dL 0.55-1.02 [facility] Comment on above: The validity of the calculated GFR & GFRAA in patients over 70 years has not been determined. Clinical correlation is essential. Serum or plasma urea nitroge n measurement (mass/volume)Ordered By: Dr. Dent on 08-06-2022 Urea nitrogen [Mass/Vol] 29 mg/dL 7-18 [facility] Thin prep Papanicolaou smear with manual screeningOrdered By: Dr. Dent on 08-06-2022 Thin prep Papanicolaou smear with manual screening 18 U/L 15-37 [facility] Thin prep Papanicolaou smear with manual screening 4 5-15 [facility] URINE CULTUREon 06-30-2022 Bacteria identified Cx Nom (U) >=100,000 CFU/ml Mixed microbiota Abnormal [facility] Urinalysis complete panel (U )on 06-29-2022 Bilirubin Ql (U) Negative Negative [facility] Clarity (Unsp spec) Clear Clear [facility] Color (U) Light Yellow Yellow [facility] Epithelial cells LM.HPF (Urine sed) [#/Area] Few [facility] Glucose Test strip (U) [Mass/Vol] Negative Trace, Negative [facility] Hemoglobin Ql (U) Trace Negative, Trace [facility] Ketones Ql (U) Negative Trace, Negative [facility] Leukocyte esterase Test strip Ql (U) 500 Sylvia/mL Abnormal Negative, 25 Sylvia/mL [facility] Nitrite Ql (U) Negative Negative [facility] pH (U) 6.0 [pH] 5.0 - 8.0 [facility] Protein (U) [Mass/Vol] Trace Trace , Negative [facility] RBC LM.HPF (Urine sed) [#/Area] 0-3 /HPF 0-3 /HPF [facility] Specific gravity (U) [Rel density] 1.012 1.005 - 1.030 [facility] Urobilinogen Ql (U) Negative Negative [facility] WBC LM.HPF (Urine sed) [#/Area] /[HPF] Abnormal 0-5 /HPF [facility] No Panel InformationOrdered By: Nabor Santos on 04-23-2022 Troponin I High Sensitivity 17 pg/mL 3.0-54.0 [facility] Comment on above: Please Note: New Tony t Units and Gender Specific Reference Ranges. For more information see Policy Stat Procedure [facility] High Sensitivity Troponin (TNIH) and attachments. Absolute lymphocyte countOrd ered By: Nabor Santos on 04-22-2022 Lymphocytes Auto (Unsp spec) [#/Vol] 1.47 10*3/uL 0.83-4.51 [facility] Basophil percentageOrdered B y: Nabor Santos on 04-22-2022 Basophils/100 WBC (Bld) 0.4 % 0-1 [facility] Chloride [Moles/Vol] 106 mmol/L 98-107 [facility] Eosinophils/100 WBC (Bld) 2.2 % 0-5 [facility] Glucose [Mass/Vol] 304 mg/dL 74-106 [facility] Comment on above: Glucose result great er than or equal to 200 mg/dLsuggests DIABETES MELLITUS per A.D.A. criteria. Neutrophils (Bld) [#/Vol] 3.4 10*3/uL 2.0-7.7 [facility] Neutrophils/100 WBC (Bld) 62.0 % 47-70 [facility] Potassium [Moles/Vol] 3.8 mmol/L 3.5-5.1 [facility] Sodium [Moles/Vol] 141 mmol/L 136-145 [facility] WBC (Bld) [#/Vol] 5.5 10*3/uL 4.4-11.0 [facility] Blood erythrocytes count (nu mber/volume)Ordered By: Nabor Santos on 04-22-2022 RBC (Bld) [#/Vol] 3.90 10*6/uL 4.2-5.4 [facility] Blood hemoglobin measurement (mass/volume)Ordered By: Nabor Santos on 04-22-2022 Hemoglobin (Bld) [Mass/Vol] 11.6 g/dL 12.0-15.0 [facility] Blood lymphocytes/100 leukoc ytesOrdered By: Nabor Santos on 04-22-2022 Lymphocytes/100 WBC (Bld) 26.9 % 19-41 [facility] Blood monocytes/100 leukocyt esOrdered By: Nabor Santos on 04-22-2022 Monocytes/100 WBC (Bld) 8.1 % 0-10 [facility] Blood platelet mean volumeOr dered By: Nabor Santos on 04-22-2022 Platelet mean volume (Bld) [Entitic vol] 10.4 fL 6.2-12.0 [facility] Determination of erythrocyte mean corpuscular volume (MCV)Ordered By: Nabor Santos on 04-22-2022 MCV (RBC) [Entitic vol] 92.6 fL 81-99 [facility] Hematocrit Auto (Bld) [Volum e fraction]Ordered By: Nabor Santos on 04-22-2022 Hematocrit (Bld) [Volume fraction] 36.1 % 37-47 [facility] Laboratory - Chemistry and C hemistry - challengeOrdered By: Nabor Santos on 04-22-2022 CO2 [Moles/Vol] 27.0 mmol/L 21.0-32.0 [facility] Magnesium [Mass/Vol] 2.3 mg/dL 1.6-2.6 [facility] Urea nitrogen/Creatinine [Mass ratio] 22.6 mg/mg 10-20 [facility] - Hematology and Cell countsOrdered By: Nabor Santos on 04-22-2022 Erythrocyte distribution width (RBC) [Entitic vol] 45.0 fL 35.1-43.9 [facility] Erythrocyte distribution width (RBC) [Ratio] 13.3 % 11.6-14.6 [facility] Immature granulocytes/100 WBC (Bld) 0.400 % 0.0-0.9 [facility] Comment on above: IG% - Immature Granu locytes (promyelocytes, myelocytes and metamyelocytes) > 1% indicates that a LEFT SHIFT is Present. MCH (RBC) [Entitic mass] 29.7 pg 27.0-32.0 [facility] Nucleated RBC/100 WBC (Bld) [Ratio] 0 % 0-5 [facility] MCHC Auto (RBC) [Mass/Vol]Or dered By: Nabor Santos on 04-22-2022 MCHC (RBC) [Mass/Vol] 32.1 g/dL 32-36 [facility] No Panel InformationOrdered By: Nabor Santos on 04-22-2022 Estimated Creatinine Clearance Calc 27.87 ml/min [facility] Estimated GFR (MDRD) Amer 51 mL/min >60 [facility] Comment on above: GFR Calc Estimated GFR (MDRD) Non-Af Amer 42 mL/min >60 [facility] Comment on above: Non- GFR Calc Platelets bldOrdered By: Aguila Santos on 04-22-2022 Platelets (Bld) [#/Vol] 173 10*3/uL 150-450 [facility] Serum or plasma calcium mina urement (mass/volume)Ordered By: Nabor Santos on 04-22-2022 Calcium [Mass/Vol] 9.1 mg/dL 8.5-10.1 [facility] Serum or plasma creatinine m easurement (mass/volume)Ordered By: Nabor Santos on 04-22-2022 Creatinine [Mass/Vol] 1.33 mg/dL 0.55-1.02 [facility] Comment on above: The validity of the calculated GFR & GFRAA in patients over 70 years has not been determined. Clinical correlation is essential. Serum or plasma urea nitroge n measurement (mass/volume)Ordered By: Nabor Santos on 04-22-2022 Urea nitrogen [Mass/Vol] 30 mg/dL 7-18 [facility] Thin prep Papanicolaou smear with manual screeningOrdered By: Nabor Santos on 04-22-2022 Thin prep Papanicolaou smear with manual screening 8 5-15 [facility] Absolute lymphocyte countOrd ered By: Dr. Hill on 04-11-2022 Lymphocytes Auto (Unsp spec) [#/Vol] 1.33 10*3/uL 0.83-4.51 [facility] Basophil percentageOrdered B y: Dr. Hill on 04-11-2022 Basophils/100 WBC (Bld) 0.6 % 0-1 [facility] Chloride [Moles/Vol] 106 mmol/L 98-107 [facility] Eosinophils/100 WBC (Bld) 2.0 % 0-5 [facility] Glucose [Mass/Vol] 192 mg/dL 74-106 [facility] Comment on above: Fasting Glucose resu lt greater than or equal to 126 mg/dL suggests DIABETES MELLITUS per A.D.A. criteria. Neutrophils (Bld) [#/Vol] 4.5 10*3/uL 2.0-7.7 [facility] Neutrophils/100 WBC (Bld) 69.0 % 47-70 [facility] Potassium [Moles/Vol] 4.2 mmol/L 3.5-5.1 [facility] Sodium [Moles/Vol] 141 mmol/L 136-145 [facility] WBC (Bld) [#/Vol] 6.5 10*3/uL 4.4-11.0 [facility] Blood erythrocytes count (nu mber/volume)Ordered By: Dr. Hill on 04-11-2022 RBC (Bld) [#/Vol] 3.92 10*6/uL 4.2-5.4 [facility] Blood hemoglobin measurement (mass/volume)Ordered By: Dr. Hill on 04-11-2022 Hemoglobin (Bld) [Mass/Vol] 11.8 g/dL 12.0-15.0 [facility] Blood lymphocytes/100 leukoc ytesOrdered By: Dr. Hill on 04-11-2022 Lymphocytes/100 WBC (Bld) 20.3 % 19-41 [facility] Blood monocytes/100 leukocyt esOrdered By: Dr. Hill on 04-11-2022 Monocytes/100 WBC (Bld) 7.6 % 0-10 [facility] Blood platelet mean volumeOr dered By: Dr. Hill on 04-11-2022 Platelet mean volume (Bld) [Entitic vol] 10.0 fL 6.2-12.0 [facility] Determination of erythrocyte mean corpuscular volume (MCV)Ordered By: Dr. Hill on 04-11-2022 MCV (RBC) [Entitic vol] 92.9 fL 81-99 [facility] Hematocrit Auto (Bld) [Volum e fraction]Ordered By: Dr. Hill on 04-11-2022 Hematocrit (Bld) [Volume fraction] 36.4 % 37-47 [facility] - Chemistry and C hemistry - challengeOrdered By: Dr. Hill on 04-11-2022 CO2 [Moles/Vol] 29.0 mmol/L 21.0-32.0 [facility] Urea nitrogen/Creatinine [Mass ratio] 20.5 mg/mg 10- [facility] - Hematology and Cell countsOrdered By: Dr. Hill on 04-11-2022 Erythrocyte distribution width (RBC) [Entitic vol] 45.2 fL 35.1-43.9 [facility] Erythrocyte distribution width (RBC) [Ratio] 13.4 % 11.6-14.6 [facility] Immature granulocytes/100 WBC (Bld) 0.500 % 0.0-0.9 [facility] Comment on above: IG% - Immature Granu locytes (promyelocytes, myelocytes and metamyelocytes) > 1% indicates that a LEFT SHIFT is Present. MCH (RBC) [Entitic mass] 30.1 pg 27.0-32.0 [facility] Nucleated RBC/100 WBC (Bld) [Ratio] 0 % 0-5 [facility] MCHC Auto (RBC) [Mass/Vol]Or dered By: Dr. Hill on 04-11-2022 MCHC (RBC) [Mass/Vol] 32.4 g/dL 32-36 [facility] No Panel InformationOrdered By: Dr. Hill on 04-11-2022 Estimated Creatinine Clearance Calc 29.18 ml/min [facility] Estimated GFR (MDRD) Amer 53 mL/min >60 [facility] Comment on above: GFR Calc Estimated GFR (MDRD) Non-Af Amer 44 mL/min >60 [facility] Comment on above: Non- GFR Calc Troponin I High Sensitivity 19 pg/mL 3.0-54.0 [facility] Comment on above: Please Note: New Tony t Units and Gender Specific Reference Ranges. For more information see Policy Stat Procedure [place] High Sensitivity Troponin (TNIH) and attachments. Platelets bldOrdered By: Dr. Hill on 04-11-2022 Platelets (Bld) [#/Vol] 192 10*3/uL 150-450 [facility] Serum or plasma calcium mina urement (mass/volume)Ordered By: Dr. Hill on 04-11-2022 Calcium [Mass/Vol] 9.5 mg/dL 8.5-10.1 [facility] Serum or plasma creatinine m easurement (mass/volume)Ordered By: Dr. Hill on 04-11-2022 Creatinine [Mass/Vol] 1.27 mg/dL 0.55-1.02 [facility] Comment on above: The validity of the calculated GFR & GFRAA in patients over 70 years has not been determined. Clinical correlation is essential. Serum or plasma urea nitroge n measurement (mass/volume)Ordered By: Dr. Hill on 04-11-2022 Urea nitrogen [Mass/Vol] 26 mg/dL 7-18 [facility] Thin prep Papanicolaou smear with manual screeningOrdered By: Dr. Hill on 04-11-2022 Thin prep Papanicolaou smear with manual screening 6 5-15 [facility] Vital Signs Date Time Vital Sign Value Performing Clinician Facility 11-18-2024 13:16-0400 Body height 152.[address] Carmen Johnson MD Work Phone: 0(157)841-823947 [place] [address] 11-18-2024 13:16-0400 Body mass index (BMI) [Ratio] 22.2 kg/m2 Dr. Carmen Johnson MD Work Phone: 1(829)885-853547 [place] [address] 11-18-2024 13:16-0400 Body temperature 98.4 [degF] Dr. Carmen Johnson MD Work Phone: 7(925)446-911747 [place] [address] 11-18-2024 13:16-0400 Body weight 51.[address] Carmen Johnson MD Work Phone: 0(061)503-741147 [place] [address] 11-18-2024 13:16-0400 Diastolic blood pressure 88 mm[Hg] Dr. Carmen Johnson MD Work Phone: 1(114)236-988147 [place] [address] 11-18-2024 13:16-0400 Heart rate 81 /min Dr. Carmen Johnson MD Work Phone: 4(270)292-846547 [place] [address] 11-18-2024 13:16-0400 Respiratory rate 16 /min Dr. Carmen Johnson MD Work Phone: 5(088)539-584347 [place] [address] 11-18-2024 13:16-0400 SaO2% (BldA) [Mass fraction] 98 % Dr. Carmen Johnson MD Work Phone: 4(174)397-631247 [place] [address] 11-18-2024 13:16-0400 Systolic blood pressure 144 mm[Hg] Dr. Carmen Johnson MD Work Phone: 2(696)432-781847 [place] [address] 09-25-2024 08:46-0400 Body height 152.[address] Carmen Johnson MD Work Phone: [facility] 09-25-2024 08:46-0400 Body mass index (BMI) [Ratio] 22.8 kg/m2 Dr. Carmen Johnson MD Work Phone: [facility] 09-25-2024 08:46-0400 Body temperature 97.8 [degF] Dr. Carmen Johnson MD Work Phone: [facility] 09-25-2024 08:46-0400 Body weight 53.[address] Carmen Johnson MD Work Phone: [facility] 09-25-2024 08:46-0400 Diastolic blood pressure 78 mm[Hg] Dr. Carmen Johnson MD Work Phone: [facility] 09-25-2024 08:46-0400 Heart rate 81 /min Dr. Carmen Johnson MD Work Phone: [facility] 09-25-2024 08:46-0400 Respiratory rate 18 /min Dr. Carmen Johnson MD Work Phone: [facility] 09-25-2024 08:46-0400 SaO2% (BldA) [Mass fraction] 98 % Dr. Carmen Johnson MD Work Phone: [facility] 09-25-2024 08:46-0400 Systolic blood pressure 132 mm[Hg] Dr. Carmen Johnson MD Work Phone: [facility] 09-20-2024 07:30-0400 Diastolic blood pressure 72 mm[Hg] Ximena Maciel APRN.[employer]NEY[employer] Work Phone: [facility] 09-20-2024 07:30-0400 Systolic blood pressure 130 mm[Hg] Ximena Maciel APRN.[employer]NEY[employer] Work Phone: [facility] 09-20-2024 07:24-0400 Body mass index (BMI) [Ratio] 21.48 kg/m2 Ximena Maciel APRN.[employer]NEY[employer] Work Phone: [facility] 09-20-2024 07:24-0400 Body weight 49.9 kg Ximena Maciel CLOSET ORGANIZER.[employer] Work Phone: [facility] 09-20-2024 07:24-0400 Heart rate 80 /min Ximena Maciel CLOSET ORGANIZER.[employer] Work Phone: [facility] 09-20-2024 07:24-0400 SaO2% (BldA) [Mass fraction] 99 % Ximena Maciel CLOSET ORGANIZER.[employer] Work Phone: [facility] 01-10-2024 14:05-0400 Body mass index (BMI) [Ratio] 25.1 kg/m2 Carmen Johnson MD Work Phone: [facility] 01-10-2024 14:05-0400 Body temperature 98.4 [degF] Carmen Johnson MD Work Phone: [facility] 01-10-2024 14:05-0400 Body weight 58.29 kg Carmen Johnson MD Work Phone: [facility] 01-10-2024 14:05-0400 Diastolic blood pressure 62 mm[Hg] Carmen Johnson MD Work Phone: [facility] 01-10-2024 14:05-0400 Heart rate 88 /min Carmen Johnson MD Work Phone: [facility] 01-10-2024 14:05-0400 Respiratory rate 18 /min Carmen Johnson MD Work Phone: [facility] 01-10-2024 14:05-0400 SaO2% (BldA) [Mass fraction] 99 % Carmen Johnson MD Work Phone: [facility] 01-10-2024 14:05-0400 Systolic blood pressure 136 mm[Hg] Carmen Johnson MD Work Phone: [facility] 12-13-2023 14:34-0400 Body temperature 98.01 [degF] Keisha Westbrook RN Work Phone: [facility] 07-03-2024 14:34-0400 Diastolic blood pressure 64 mm[Hg] Keishavirginia Westbrook RN Work Phone: [facility] 12-13-2023 14:34-0400 Heart rate 80 /min Keishavirginia Westbrook RN Work Phone: [facility] 12-13-2023 14:34-0400 Respiratory rate 16 /min Keishavirgniia Westbrook RN Work Phone: [facility] 12-13-2023 14:34-0400 SaO2% (BldA) [Mass fraction] 98 % Keishavirginia Westbrook RN Work Phone: [facility] 12-13-2023 14:34-0400 Systolic blood pressure 128 mm[Hg] Keisha Westbrook RN Work Phone: [facility] 12-11-2023 16:24-0400 Diastolic blood pressure 62 mm[Hg] Carmen Johnson MD Work Phone: [facility] 12-11-2023 16:24-0400 Systolic blood pressure 138 mm[Hg] Carmen Johnson MD Work Phone: [facility] 12-11-2023 15:08-0400 Body mass index (BMI) [Ratio] 25.76 kg/m2 Carmen Johnson MD Work Phone: [facility] 12-11-2023 15:08-0400 Body temperature 97.5 [degF] Carmen Johnson MD Work Phone: [facility] 12-11-2023 15:08-0400 Body weight 59.83 kg Carmen Johnson MD Work Phone: [facility] 12-11-2023 15:08-0400 Heart rate 101 /min Carmen Johnson MD Work Phone: [facility] 12-11-2023 15:08-0400 Respiratory rate 18 /min Carmen Johnson MD Work Phone: [facility] 12-11-2023 15:08-0400 SaO2% (BldA) [Mass fraction] 100 % Carmen Johnson MD Work Phone: [facility] 11-23-2023 13:01-0400 Body temperature 98.49 [degF] Keisha Westbrook RN Work Phone: [facility] 11-23-2023 13:01-0400 Diastolic blood pressure 76 mm[Hg] Keisha Westbrook RN Work Phone: [facility] 11-23-2023 13:01-0400 Heart rate 88 /min Keisha Westbrook RN Work Phone: [facility] 11-23-2023 13:01-0400 Respiratory rate 16 /min Keisha Westbrook RN Work Phone: [facility] 11-23-2023 13:01-0400 SaO2% (BldA) [Mass fraction] 99 % Keisha Westbrook RN Work Phone: [facility] 11-23-2023 13:01-0400 Systolic blood pressure 142 mm[Hg] Keisha Westbrook RN Work Phone: [facility] 11-20-2023 14:53-0400 Body mass index (BMI) [Ratio] 28.71 kg/m2 Evelin Martinez RN Work Phone: [facility] 11-20-2023 14:53-0400 Body temperature 99 [degF] Evelin Martinez RN Work Phone: [facility] 11-20-2023 14:53-0400 Body weight 66.68 kg Evelin Martinez RN Work Phone: [facility] 11-20-2023 14:53-0400 Diastolic blood pressure 64 mm[Hg] Evelin Martinez RN Work Phone: [facility] 11-20-2023 14:53-0400 Heart rate 73 /min Evelin Martinez RN Work Phone: [facility] 11-20-2023 14:53-0400 Respiratory rate 18 /min Evelin Martinez RN Work Phone: [facility] 11-20-2023 14:53-0400 SaO2% (BldA) [Mass fraction] 99 % Evelin Martinez RN Work Phone: [facility] 11-20-2023 14:53-0400 Systolic blood pressure 168 mm[Hg] Evelin Martinez RN Work Phone: [facility] 10-14-2022 16:40-0400 Body temperature 99.19 [degF] Carmen Johnson MD Work Phone: [facility] 10-14-2022 16:40-0400 Body weight 63.5 kg Carmen Johnson MD Work Phone: [facility] 10-14-2022 16:40-0400 Diastolic blood pressure 68 mm[Hg] Carmen Johnson MD Work Phone: [facility] 10-14-2022 16:40-0400 Heart rate 61 /min Carmen Jonhson MD Work Phone: [facility] 10-14-2022 16:40-0400 Respiratory rate 18 /min Carmen Johnson MD Work Phone: [facility] 10-14-2022 16:40-0400 SaO2% (BldA) [Mass fraction] 98 % Carmen Johnson MD Work Phone: [facility] 10-14-2022 16:40-0400 Systolic blood pressure 124 mm[Hg] Carmen Johnson MD Work Phone: [facility] 08-17-2022 10:46-0500 Body temperature 97.81 [degF] Carmen Johnson MD Work Phone: [facility] 08-17-2022 10:46-0500 Body weight 61.69 kg Carmen Johnson MD Work Phone: [facility] 08-17-2022 10:46-0500 Diastolic blood pressure 68 mm[Hg] Carmen Johnson MD Work Phone: [facility] 08-17-2022 10:46-0500 Heart rate 55 /min Carmen Johnson MD Work Phone: [facility] 08-17-2022 10:46-0500 Respiratory rate 18 /min Carmen Johnson MD Work Phone: [facility] 08-17-2022 10:46-0500 SaO2% (BldA) [Mass fraction] 100 % Carmen Johnson MD Work Phone: [facility] 08-17-2022 10:46-0500 Systolic blood pressure 128 mm[Hg] Carmen Johnson MD Work Phone: [facility] 08-11-2022 14:52-0500 Body temperature 98 [degF] Dr. Carmen Johnson Work Phone: [facility] 08-11-2022 14:52-0500 Diastolic blood pressure 73 mm[Hg] Dr. Carmen Johnson Work Phone: [facility] 08-11-2022 14:52-0500 Heart rate 77 /min Dr. Carmen Johnson Work Phone: [facility] 08-11-2022 14:52-0500 Respiratory rate 18 /min Dr. Carmen Johnson Work Phone: [facility] 08-11-2022 14:52-0500 SaO2% (BldA) [Mass fraction] 98 % Dr. Carmen Johnson Work Phone: [facility] 08-11-2022 14:52-0500 Systolic blood pressure 143 mm[Hg] Dr. Carmen Johnson Work Phone: [facility] 08-09-2022 08:03-0500 Body height 152.[address] Carmen Johnson Work Phone: [facility] 08-09-2022 08:03-0500 Body weight 65.[address] Carmen Johnson Work Phone: [facility] 08-09-2022 07:51-0500 Inhaled oxygen flow rate 2 L/min Dr. Carmen Johnson Work Phone: [facility] 08-07-2022 10:07-0500 Body mass index (BMI) [Ratio] 28.1 kg/m2 Dr. Carmen Johnson Work Phone: [facility] 08-06-2022 06:13-0500 Diastolic blood pressure 68 mm[Hg] [facility] 08-06-2022 06:13-0500 Heart rate 90 /min [facility] 08-06-2022 06:13-0500 Respiratory rate 18 /min [facility] 08-06-2022 06:13-0500 SaO2% (BldA) [Mass fraction] 99 % [facility] 08-06-2022 06:13-0500 Systolic blood pressure 154 mm[Hg] [facility] 08-06-2022 06:00-0500 Body temperature 97.2 [degF] [facility] 08-06-2022 03:30-0500 Body height 152.4 cm [facility] 08-06-2022 03:30-0500 Body mass index (BMI) [Ratio] 29.5 kg/m2 [facility] 08-06-2022 03:30-0500 Body weight 68.6 kg [facility] 06-14-2022 16:03-0500 Body temperature 96.69 [degF] Carmen Johnson MD Work Phone: [facility] 06-14-2022 16:03-0500 Body weight 64.86 kg Carmen Johnson MD Work Phone: [facility] 06-14-2022 16:03-0500 Diastolic blood pressure 70 mm[Hg] Carmen Johnson MD Work Phone: [facility] 06-14-2022 16:03-0500 Heart rate 68 /min Carmen Johnson MD Work Phone: [facility] 06-14-2022 16:03-0500 Respiratory rate 18 /min Carmen Johnson MD Work Phone: [facility] 06-14-2022 16:03-0500 SaO2% (BldA) [Mass fraction] 98 % Carmen Johnson MD Work Phone: [facility] 06-14-2022 16:03-0500 Systolic blood pressure 132 mm[Hg] Carmen Johnson MD Work Phone: [facility] 05-13-2022 10:02-0500 Body temperature 98.71 [degF] Carmen Johnson MD Work Phone: [facility] 05-13-2022 10:02-0500 Body weight 64.18 kg Carmen Johnson MD Work Phone: [facility] 05-13-2022 10:02-0500 Diastolic blood pressure 80 mm[Hg] Carmen Johnson MD Work Phone: [facility] 05-13-2022 10:02-0500 Heart rate 78 /min Carmen Johnson MD Work Phone: [facility] 05-13-2022 10:02-0500 Respiratory rate 16 /min Carmen Johnson MD Work Phone: [facility] 05-13-2022 10:02-0500 SaO2% (BldA) [Mass fraction] 100 % Carmen Johnson MD Work Phone: [facility] 05-13-2022 10:02-0500 Systolic blood pressure 130 mm[Hg] Carmen Johnson MD Work Phone: [facility] 04-23-2022 00:28-0500 Diastolic blood pressure 70 mm[Hg] [facility] 04-23-2022 00:28-0500 Heart rate 74 /min [facility] 04-23-2022 00:28-0500 Respiratory rate 15 /min [facility] 04-23-2022 00:28-0500 SaO2% (BldA) [Mass fraction] 98 % [facility] 04-23-2022 00:28-0500 Systolic blood pressure 149 mm[Hg] [facility] 04-22-2022 21:50-0500 Body height 152.4 cm [facility] Work Phone: 04-22-2022 21:50-0500 Body mass index (BMI) [Ratio] 29.6 kg/m2 [facility] 04-22-2022 21:50-0500 Body temperature 98.1 [degF] [facility] 04-22-2022 21:50-0500 Body weight 68.9 kg [facility] 04-12-2022 00:20-0400 Body temperature 98.2 [degF] [facility] 04-12-2022 00:20-0400 Diastolic blood pressure 80 mm[Hg] [facility] 04-12-2022 00:20-0400 Heart rate 66 /min [facility] 04-12-2022 00:20-0400 Respiratory rate 18 /min [facility] 04-12-2022 00:20-0400 SaO2% (BldA) [Mass fraction] 97 % [facility] 04-12-2022 00:20-0400 Systolic blood pressure 157 mm[Hg] [facility] 04-11-2022 22:23-0400 Body height 152.4 cm [facility] Work Phone: 04-11-2022 22:23-0400 Body mass index (BMI) [Ratio] 29.9 kg/m2 [facility] 04-11-2022 22:23-0400 Body weight 69.4 kg [facility] 02-15-2022 17:32-0400 Body weight 66.22 kg Carmen Johnson MD Work Phone: [facility] 02-15-2022 17:32-0400 Diastolic blood pressure 82 mm[Hg] Carmen Johnson MD Work Phone: [facility] 02-15-2022 17:32-0400 Heart rate 60 /min Carmen Johnson MD Work Phone: [facility] 02-15-2022 17:32-0400 SaO2% (BldA) [Mass fraction] 96 % Carmen Johnson MD Work Phone: [facility] 02-15-2022 17:32-0400 Systolic blood pressure 138 mm[Hg] Carmen Johnson MD Work Phone: [facility] 10-12-2021 10:10-0400 Body weight 69.4 kg Carmen Johnson MD Work Phone: [facility] 10-12-2021 10:10-0400 Diastolic blood pressure 82 mm[Hg] Carmen Johnson MD Work Phone: [facility] 10-12-2021 10:10-0400 Heart rate 76 /min Carmen Johnson MD Work Phone: [facility] 10-12-2021 10:10-0400 Systolic blood pressure 124 mm[Hg] Carmen Johnson MD Work Phone: [facility] Encounters Encounter Date Encounter Type Care Provider Facility Start: 11-18-2024 End: 11-18-[address] Carmen Johnson MD Work Phone: [facility] Work Phone: Start: 11-18-2024 End: 11-18-[address] Gill Velez MD -[facility] Start: 11-18-2024 End: 11-18-[address] Gill Velez MD -[facility] Work Phone: Start: 11-18-2024 End: 11-18-[address] Carmen Johnson MD Work Phone: [facility] Work Phone: Start: 11-18-2024 End: 11-18-2024 ambulatory Gill Velez Facility:[facility] Start: 11-08-2024 End: 11-08-2024 Telephone encounter Ximena Maciel APRN.CNP Work Phone: [facility] [place] Comment on above: Patient Question Start: 10-15-2024 End: 10-15-2024 Refill Ryan Kamara Work Phone: [facility] [place] Comment on above: Refill Request Start: 09-25-2024 Encounter for genera l adult medical examination without abnormal findings Ryan Kamara [facility] Start: 09-25-2024 End: 09-25-[address] Carmen Johnson MD Work Phone: [facility] Work Phone: Start: 09-25-2024 End: 09-25-2024 Patient encounter procedure Ryan DIAS -Laboratory, [place] Start: 09-25-[address] Marium Johnson MD Work Phone: [facility] Start: 09-25-2024 End: 09-25-2024 Patient encounter procedure Ryan DIAS [facility] Work Phone: Start: 09-25-2024 End: 09-25-2024 ambulatory Carmen Johnson Facility:[facility] Start: 09-25-2024 End: 09-25-2024 ambulatory Ryan Kamara Facility:[facility] Start: 09-20-2024 End: 09-20-2024 Patient encounter procedure Ximena Maciel APRN.CNP Work Phone: [facility] [place] Comment on above: Encounter for care o f pacemaker (Primary Dx); Mobitz type II atrioventricular block; Sinoatrial node dysfunction (HCC); Moderate mitral valve stenosis Start: 09-20-2024 End: 09-20-2024 ambulatory SELF Facility:[facility] Start: 09-17-2024 End: 10-18-2024 ambulatory Carmen Johnson MD Work Phone: [facility] [place] Start: 09-17-2024 End: 09-17-2024 Telephone encounter Noman Orozco MD Work Phone: [facility] [place] Comment on above: Cardiac Clearance Start: 09-02-2024 End: 09-04-2024 [facility] [place] Start: 09-02-2024 End: 09-04-2024 Patient encounter procedure [facility] [place] Comment on above: Population Health Na vigation Outreach [facility] Start: 08-30-2024 End: 09-03-2024 ambulatory CARMEN JOHNSON Facility:[facility] Start: 08-30-2024 End: 09-03-2024 Professional / [...] 08-01-2024 ambulatory Betty Lyons [facility] [place] Start: 08-01-2024 End: 08-01-2024 Patient encounter procedure Betty Lyons [facility] Comment on above: Population Health Na vigation Outreach ([facility]OHAN BRAMBILA [facility]) Population Health Na vigation Outreach ( ); Opened In Error Start: 07-31-2024 End: 07-31-2024 Telephone encounter Noman Orozco MD Work Phone: [facility] [place] Start: 07-18-2024 End: 07-19-2024 Refill Carmen Johnson MD Work Phone: [facility] [place] Comment on above: Refill Request Start: 07-01-2024 End: 07-01-2024 ambulatory Betty Lyons [facility] Start: 07-01-2024 End: 07-01-2024 Patient encounter procedure Betty Lyons [facility] [place] Comment on above: Population Health Na vigation Outreach (ROHAN BRAMBILA [facility]) Start: 05-21-2024 End: 05-21-2024 Professional / ancillary services management Noman Orozco MD Work Phone: [facility] Start: 05-21-2024 End: 05-21-2024 ambulatory CARMEN Kingsley MARTINEZAMPAS Facility:[facility] Start: 05-21-2024 End: 05-21-2024 Follow-up encounter Noman Orozco MD Work Phone: [facility] Comment on above: Remote Pacemaker Fol low Up Start: 05-21-2024 End: 05-21-2024 Patient encounter procedure Rem Device Ck [facility] Start: 04-12-2024 End: 05-08-2024 Telephone encounter Noman Orozco MD Work Phone: [facility] [place] Comment on above: Patient Question Start: 01-10-2024 End: 01-10-2024 Office outpatient visit 40 minutes Carmen Johnson MD Work Phone: [facility] [place] Comment on above: Primary Hypertension (Primary Dx); Bilateral lower extremity edema; Anemia, unspecified type; S/P cardiac pacemaker procedure; Anxiety state Start: 01-10-2024 End: 01-10-2024 [facility] Start: 01-08-2024 Telephone encounter Carmen garcia MD Work Phone: [facility] [place] Comment on above: Patient Update; Medi cation Question Start: 01-07-2024 End: 01-08-2024 Emergency department patient visit CARMEN JOHNSON [facility] Start: 01-03-2024 Telephone encounter Carmen garcia MD Work Phone: [facility] [place] Comment on above: Patient Question Start: 01-02-2024 Follow-up encounter Noman Orozco MD Work Phone: [place] ANCILLARY AREA NOT LISTED Start: 01-02-2024 End: 01-02-2024 Patient encounter procedure [facility] Comment on above: Permanent Pacemaker Start: 01-02-2024 End: 01-02-2024 ambulatory CARMEN D TALAMPAS Facility:[facility] Start: 12-13-2023 End: 12-13-2023 Home visit Keisha Westbrook RN Work Phone: [facility] Comment on above: SN AGENCY DC W VISIT Start: 12-12-2023 Refill Carmen cramer MD Work Phone: [facility] [place] Comment on above: Refill Request Start: 12-11-2023 End: 12-11-2023 ambulatory CARMEN D JUANAMPAS Facility:[facility] Start: 12-11-2023 End: 12-11-2023 Subsequent hospital visit by physician [facility] [place] Work Phone: Radiology Comment on [...] 12-11-2023 End: 12-11-2023 ambulatory CARMEN D ALEX Facility:[facility] Start: 12-06-2023 Telephone encounter Zoie Hayes RN Work Phone: [facility] Comment on above: Home Care (FYI; Pt m issed visit today. Not home) Start: 12-06-2023 End: 12-06-2023 Home visit Zoie Hayes RN Work Phone: [facility] Comment on above: SN UNMADE VISIT Start: 12-04-2023 Refill Carmen cramer MD Work Phone: [facility] [place] Comment on above: Refill Request Start: 11-29-2023 Telephone encounter Carmen garcia MD Work Phone: [facility] [place] Comment on above: Appointment Start: 11-28-2023 Telephone encounter Cramen garcia MD Work Phone: [facility] [place] Comment on above: Call From ER (Dr. Diogenes montanez) Start: 11-28-2023 End: 11-28-2023 Emergency department patient visit CARMEN JOHNSON [facility] Start: 11-24-2023 Telephone encounter Alvaro arechiga [employer]EARCH CENTER PARTNER Work Phone: [facility] Comment on above: Home Care Start: 11-24-2023 End: 11-24-2023 Home visit Alvaro Medina [employer] PARTNER Work Phone: [facility] Comment on above: MASTER POLICE DETECTIVE CARE COORDINATIO N Start: 11-23-2023 Telephone encounter Evelin harris RN Work Phone: [facility] Start: 11-23-2023 End: 11-23-2023 Home visit Alvaro Medina [employer] C[employer] PARTNER Work Phone: [facility] Comment on above: MASTER POLICE DETECTIVE CARE COORDINATIO N SN ROUTINE Start: 11-22-2023 ambulatory Yu Manning RN Work Phone: [facility] [employer] Start: 11-22-2023 End: 11-22-2023 Home visit Alvaro Medina [employer] C[employer] PARTNER Work Phone: [facility] Comment on above: MASTER POLICE DETECTIVE CARE COORDINATIO N Transition Of Care ( Fabric nonresponse single outreach) Start: 11-21-2023 End: 11-21-2023 Home visit Alvaro RANKINW Work Phone: [facility] Comment on above: MASTER POLICE DETECTIVE CARE COORDINATIO N SN UNMADE VISIT Start: 11-20-2023 ambulatory Neelam corral MD Work Phone: [facility] Comment on above: Encounter for medica l assessment (Primary Dx) Start: 11-20-2023 Patient encounter status Terry Elizabeth MD Work Phone: [facility] Work Phone: Start: 11-20-2023 End: 11-20-2023 Refill Carmen Johnson MD Work Phone: [facility] [place] Comment on above: Refill Request Home Care (Hypertens abril) SN SOC Start: 11-20-2023 Telemedicine consult ation with patient Neelam Elizabeth MD Work Phone: [facility] Start: 11-19-2023 Telephone encounter Evelin harris RN Work Phone: [facility] Comment on above: Home Care Arrangemen ts Start: 11-17-2023 End: 11-17-2023 Patient Outreach Yu Manning RN Work Phone: [facility] [employer] [facility] [employer] Comment on above: Transition Of Care ( Fabric nonresponse single outreach) SN UNMADE VISIT Homecare Home [facility] Care (Delay in care) Start: 11-16-2023 End: 11-16-2023 ambulatory Natacha (Rn) Dafne RN NURSE STATE EPIDEMIOLOGIST Comment on above: Information Start: 11-16-2023 Telephone encounter Carmen garcia MD Work Phone: [facility] Comment on above: Home Care (SOC Confi rmation (today)) Start: 11-16-2023 End: 11-16-2023 Telemedicine consultation with patient Nurse Card Ag [place] P[facility] Work Phone: [facility] [place] Start: 11-15-2023 Telephone encounter Israel putnam Work Phone: [facility] Comment on above: Home Care (Confirmat ion Call ) Start: 11-14-2023 Telephone encounter Erna adamson JUNIOR BRAND MANAGER Work Phone: [facility] Comment on above: Home Care ( to vanda presley ) Start: 11-08-2023 Follow-up encounter [facility] Provider [place] ANCILLARY AREA NOT LISTED Start: 11-08-2023 Patient encounter procedure [facility] Provider [place] ANCILLARY AREA NOT LISTED Start: 11-08-2023 Telephone encounter Ximena parra APRN.JOURNEYMAN CARPENTER Work Phone: [place] PROVIDER ADULT Comment on above: Wound Check; Appoint ment Start: 10-18-2023 ambulatory Carmen cramer MD Work Phone: [facility] [place] Start: 10-02-2023 Refill Carmen cramer MD Work Phone: [facility] Comment on above: Refill Request Start: 09-27-2023 Telephone encounter Carmen garcia MD Work Phone: [facility] Comment on above: medication refill Start: 09-23-2023 Refill Lissett Chavezgabriella Kulkarni PRN.CNP Work Phone: [facility] Comment on above: Refill Request Start: 01-24-2023 Refill Carmen cramer MD Work Phone: Internal [facility] Comment on above: Refill Request Start: 12-02-2022 Refill Carmen cramer MD Work Phone: [facility] Comment on above: Refill Request Start: 11-09-2022 ambulatory Carmen cramer MD Work Phone: Internal [facility] Start: 10-22-2022 Refill Verena Marsha PSS 4C Ins titute Comment on above: Refill Request Start: 10-14-2022 End: 10-14-2022 Office outpatient visit 40 minutes Carmen Johnson MD Work Phone: [facility] Comment on above: 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 (HCC) (Primary Dx); Exudative age-related macular degeneration of right eye, unspecified stage (HCC); Acute cystitis with hematuria; Essential hypertension; Cloudy urine; Bad odor of urine; Vitamin D deficiency; Mixed hyperlipidemia Start: 09-22-2022 Refill Carmen cramer MD Work Phone: [facility] Comment on above: Refill Request Start: 08-17-2022 End: 08-17-2022 Office outpatient visit 15 minutes Carmen Johnson MD Work Phone: [facility] Comment on above: Intestinal adhesions with complete obstruction (HCC) (Primary Dx); S/P laparoscopy; Impacted cerumen of right ear Start: 08-11-2022 Non-patient / Non-visit Dr. Cuca Johnson Work Phone: [facility] Start: 08-11-2022 Non-patient / Non-visit Dr. Cuca Johnson Work Phone: [facility] Start: 08-10-2022 Non-patient / Non-visit Dr. Cuca Johnson Work Phone: [facility] Start: 08-10-2022 Non-patient / Non-visit Dr. Cuca Johnson Work Phone: [facility] Start: 08-09-2022 Non-patient / Non-visit Dr. Cuca Johnson Work Phone: [facility] Start: 08-08-2022 Non-patient / Non-visit Dr. Cuca Johnson Work Phone: [facility] Start: 08-07-2022 Non-patient / Non-visit Dr. Cuca Johnson Work Phone: [facility] Start: 08-07-2022 Non-patient / Non-visit Dr. Cuca Johnson Work Phone: [facility] Start: 08-06-2022 End: 08-11-2022 Evaluation and management of inpatient [facility] Start: 08-06-2022 Evaluation and manag ement of inpatient [facility] 3 Start: 08-06-2022 Non-patient / Non-visit Dr. Cuca Johnson Work Phone: [facility] Start: 07-06-2022 ambulatory Betty Lyons [facility] [place] Comment on above: Population Health Na vigation Outreach ([facility]) Start: 07-06-2022 Telephone encounter Carmen garcia MD Work Phone: [facility] [place] Comment on above: Results Start: 06-30-2022 Telephone encounter Carmen garcia MD Work Phone: [facility] [place] Comment on above: Results Start: 06-14-2022 End: 06-14-2022 Office outpatient visit 25 minutes Carmen Johnson MD Work Phone: [facility] [place] Comment on above: Foul smelling urine (Primary Dx); Type 2 diabetes mellitus with stage 3a chronic kidney disease, without long-term current use of insulin (HCC); Vitamin D deficiency; Leg cramping Start: 05-17-2022 Telephone encounter Carmen garcia MD Work Phone: [facility] [place] Comment on above: Forms Start: 05-13-2022 End: [...] 04-22-2022 End: 04-23-2022 Emergency department patient visit [facility] Start: 04-11-2022 End: 04-12-2022 Emergency department patient visit [facility] Start: 03-28-2022 End: 03-28-2022 Nursing evaluation of patient and report Mi Nurse Work Phone: Family [facility] Comment on above: Need for vaccination (Primary Dx) Start: 03-18-2022 Telephone encounter Carmen garcia MD Work Phone: [facility] [place] Comment on above: Medical Clearance Start: 02-15-2022 [...] unspecified stage (HCC) Start: 01-13-2022 Refill Carmen carmer MD Work Phone: [facility] [place] Comment on above: Refill Request Start: 12-08-2021 ambulatory Carmen cramer MD Work Phone: [facility] [place] Start: 10-12-2021 End: 10-12-2021 Office outpatient visit 25 minutes Carmen Johnson MD Work Phone: [facility] [place] Comment on above: Type 2 diabetes loretta itus 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, 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 Carmen Johnson MD Work Phone: Comment on above: Vitamin D StatusDefi ciency: <20 ng/mL (50nmol/L)Insufficiency: 20-30 ng/mL (50-75 nmol/L)Sufficiency: 30-100 ng/mL (75-250 nmol/L)Toxicity: >100 ng/mL (>250 nmol/L) Start: 09-20-2024 Ecg routine ecg w/le ast 12 lds w/i&r Ximena Maciel CLOSET ORGANIZER.JOURNEYMAN CARPENTER Work Phone: Start: 08-30-2024 PACEMAKER REMOTE CHECK [...] procedure 09/24/2025 11:40 AM EDT Office Visit [facility] [place] [address] [place], [place] [id number] Noman Orozco MD [address] [phone] Annual follow up. kh [facility] [place] Comment on above: Annual follow up. Start: 09-16-2025 Glaucoma screening Dilated Retinal Exam [facility] Start: 08-30-2025 Glaucoma screening Dilated Retinal Exam [facility] Start: 03-11-2025 End: 03-11-2025 Patient encounter procedure [facility] Comment on above: bsc pm/sv/snd Start: 01-09-2025 Annual PCP Team Chronic Disease Visit Annual PCP Team Chronic Disease Visit [facility] Start: 01-06-2025 Complete blood count Hemoglobin/Hematocrit [facility] Start: 01-06-2025 Creatinine measurement Serum Creatinine [facility] Start: 01-03-2025 Glaucoma screening Dilated Retinal Exam [facility] Start: 12-12-2024 BP Controlled (<130/80) BP Controlled (<130/80) [facility] Start: 12-10-2024 Annual PCP Team Chronic Disease Visit Annual PCP Team Chronic Disease Visit [facility] Start: 12-06-2024 End: 12-06-[address] [facility] Comment on above: bsc pm/sv/snd-yearly Start: 11-27-2024 Complete blood count Hemoglobin/Hematocrit [facility] Start: 11-27-2024 Creatinine measurement Serum Creatinine [facility] Start: 11-18-2024 Basic metabolic 2008 panel with ionized calcium - Serum or Plasma [facility] Start: 11-18-2024 CBC W Auto Differential panel - Blood [facility] Start: 11-18-2024 Patient referral [facility] Work Phone: Start: 11-10-2024 Complete blood count Hemoglobin/Hematocrit [facility] Start: 11-10-2024 Creatinine measurement Serum Creatinine [facility] Start: 11-07-2024 Complete blood count Hemoglobin/Hematocrit [facility] Start: 11-07-2024 Creatinine measurement Serum Creatinine [facility] Start: 11-06-2024 End: 11-06-2024 Patient encounter procedure 11/06/2024 9:40 AM EDT Office Visit [facility] [address] [place] [address] Noman Orozco MD [address] [place] [address] [place] [phone] 1 year follow up [facility] Comment on above: 1 year follow up Start: 09-25-2024 Patient referral [facility] Work Phone: Start: 09-20-2024 End: 09-20-2024 Patient encounter procedure 09/20/2024 7:30 AM EDT Office Visit [facility] [place] [address] [place], [place] [id number] Ximena Maciel APRN.JOURNEYMAN CARPENTER [address] [place] [address] 1 year follow up [facility] [place] Comment on above: 1 year follow up Start: 09-10-2024 Glaucoma screening Dilated Retinal Exam [facility] Start: 08-30-2024 End: 08-30-2024 Patient encounter procedure 08/30/2024 8:00 AM EDT Procedure [facility] [address] [place], [place] [id number] bsc pm remote/ dr V/ sx chema [facility] Comment on above: bsc pm remote/ dr V/ sx chema Start: 07-31-2024 Glaucoma screening Dilated Retinal Exam [facility] Start: 07-19-2024 End: 10-18-2024 25-hydroxyvitamin D3 [Mass/volume] in Serum or Plasma VITAMIN D 25 HYDROXY Lab Routine Vitamin D deficiency Type 2 diabetes mellitus with stage 3a chronic kidney disease, without long-term current use of insulin (HCC) Encounter for long-term current use of medication Expected: 07/19/2024, Expires: 10/18/2024 [facility] Comment on above: Expected: 07/19/2024, Expires: Start: 07-19-2024 End: 10-18-2024 CBC panel - Blood by Automated count COMPLETE BLOOD COUNT Lab Routine Essential hypertension Type 2 diabetes mellitus with stage 3a chronic kidney disease, without long-term current use of insulin (HCC) Encounter for long-term current use of medication Expected: 07/19/2024, Expires: 10/18/2024 [facility] Comment on above: Expected: 07/19/2024, Expires: Start: 07-19-2024 End: 10-18-2024 Comprehensive metabolic 2000 panel - Serum or Plasma COMPREHENSIVE METABOLIC PANEL Lab Routine Essential hypertension Type 2 diabetes mellitus with stage 3a chronic kidney disease, without long-term current use of insulin (HCC) Encounter for long-term current use of medication Expected: 07/19/2024, Expires: 10/18/2024 [facility] Comment on above: Expected: 07/19/2024, Expires: Start: 07-19-2024 End: 10-18-2024 Hemoglobin A1c in Blood HEMOGLOBIN A1C Lab Routine Type 2 diabetes mellitus with stage 3a chronic kidney disease, without long-term current use of insulin (HCC) Encounter for long-term current use of medication Expected: 07/19/2024, Expires: 10/18/2024 [facility] Work Phone: Comment on above: Expected: 07/19/2024, Expires: Start: 07-19-2024 End: 10-18-2024 Lipid 1996 panel - Serum or Plasma LIPID PANEL BASIC Lab Routine Essential hypertension Type 2 diabetes mellitus with stage 3a chronic kidney disease, without long-term current use of insulin (HCC) Encounter for long-term current use of medication Expected: 07/19/2024, Expires: 10/18/2024 [facility] Comment on above: Expected: 07/19/2024, Expires: Start: 07-19-2024 End: 10-18-2024 Magnesium [Mass/volume] in Serum or Plasma MAGNESIUM Lab Routine Encounter for long-term current use of medication Expected: 07/19/2024, Expires: 10/18/2024 [facility] Comment on above: Expected: 07/19/2024, Expires: Start: 06-25-2024 End: 06-25-2024 Patient encounter procedure 06/25/2024 3:20 PM EST Office Visit [facility] [place] [address] [place] [address] Carmen Johnson MD [address] [place] [address] 6 month follow up [facility] [place] Comment on above: 6 month follow up Start: 06-12-2024 Advance Directive Discussion Advance Directive Discussion [facility] Start: 05-21-2024 End: 05-21-2024 Patient encounter procedure 05/21/2024 8:00 AM EST Procedure [facility] [address] pm/bsci/sv [facility] Comment on above: pm/bsci/sv Start: 05-10-2024 Hemoglobin A1c measurement HbA1C [facility] Start: 05-07-2024 Hemoglobin A1c measurement HbA1C [facility] Start: 03-22-2024 End: 03-22-2024 Patient encounter procedure 03/22/2024 8:00 AM EDT Procedure [facility] [place] [address] bscpm/sv/sndys [facility] Comment on above: bscpm/sv/sndys Start: 02-14-2024 End: 02-14-2024 Patient encounter procedure 02/14/2024 4:00 PM EDT Office Visit [facility] [place] [address] [place] [address] Carmen Johnson MD [address] [place] [address] 1 month follow up [facility] [place] Comment on above: 1 month follow up Start: 02-11-2024 Covid-19 Vaccine () Covid-19 Vaccine () [facility] Start: 02-11-2024 Covid-19 Vaccine () Covid-19 Vaccine () [facility] Start: 01-31-2024 End: 05-01-2024 CBC panel - Blood by Automated count COMPLETE BLOOD COUNT Lab Routine Anemia, unspecified type Expected: 01/31/2024 (Approximate), Expires: 05/01/2024 [facility] Comment on above: Expected: 01/31/2024 (Approximate), Expi res: 05/01/2024 Start: 01-31-2024 End: 05-01-2024 Cobalamin (Vitamin B12) [Mass/volume] in Serum or Plasma VITAMIN B12 Lab Routine Anemia, unspecified type Expected: 01/31/2024 (Approximate), Expires: 05/01/2024 [facility] Comment on above: Expected: 01/31/2024 (Approximate), Expi res: 05/01/2024 Start: 01-31-2024 End: 05-01-2024 Comprehensive metabolic 2000 panel - Serum or Plasma COMPREHENSIVE METABOLIC PANEL Lab Routine Primary Hypertension Expected: 01/31/2024 (Approximate), Expires: 05/01/2024 [facility] Work Phone: Comment on above: Expected: 01/31/2024 (Approximate), Expi res: 05/01/2024 Start: 01-31-2024 End: 05-01-2024 Ferritin [Mass/volume] in Serum or Plasma FERRITIN Lab Routine Anemia, unspecified type Expected: 01/31/2024 (Approximate), Expires: 05/01/2024 [facility] Comment on above: Expected: 01/31/2024 (Approximate), Expi res: 05/01/2024 Start: 01-31-2024 End: 05-01-2024 Folate [Mass/volume] in Serum or Plasma FOLATE, SERUM Lab Routine Anemia, unspecified type Expected: 01/31/2024 (Approximate), Expires: 05/01/2024 [facility] Comment on above: Expected: 01/31/2024 (Approximate), Expi res: 05/01/2024 Start: 01-31-2024 End: 05-01-2024 Iron and Iron binding capacity panel - Serum or Plasma IRON AND TIBC Lab Routine Anemia, unspecified type Expected: 01/31/2024 (Approximate), Expires: 05/01/2024 [facility] Comment on above: Expected: 01/31/2024 (Approximate), Expi res: 05/01/2024 Start: 01-24-2024 End: 01-24-2024 Patient encounter procedure 01/24/2024 2:20 PM EDT Office Visit [facility] [place] [address] [place] [address] Lissett Devries APRN.JOURNEYMAN CARPENTER [address] [place] [address] 6-8 week follow up [facility] [place] Comment on above: 6-8 week follow up Start: 01-10-2024 End: 01-10-2024 Patient encounter procedure 01/10/2024 2:20 PM EDT Office Visit [facility] [place] [address] [place], [place] [phone] Carmen Johnson MD [address] [place] [address] [facility] F/U 01/07/2024; Chest Pain [facility] [place] Comment on above: [facility] F/U 01/07/2024; Chest Pain Start: 01-01-2024 End: 04-01-2024 25-hydroxyvitamin D3 [Mass/volume] in Serum or Plasma VITAMIN D 25 HYDROXY Lab Routine Vitamin D deficiency Expected: 01/01/2024 (Approximate), Expires: 04/01/2024 [facility] Comment on above: Expected: 01/01/2024 (Approximate), Expi res: 04/01/2024 Start: 01-01-2024 End: 04-01-2024 CBC panel - Blood by Automated count COMPLETE BLOOD COUNT Lab Routine Primary Hypertension Renal insufficiency Expected: 01/01/2024 (Approximate), Expires: 04/01/2024 [facility] Comment on above: Expected: 01/01/2024 (Approximate), Expi res: 04/01/2024 Start: 01-01-2024 End: 04-01-2024 Comprehensive metabolic 2000 panel - Serum or Plasma COMPREHENSIVE METABOLIC PANEL Lab Routine Hypoglycemia Primary Hypertension Vitamin D deficiency Renal insufficiency Expected: 01/01/2024 (Approximate), Expires: 04/01/2024 [facility] Work Phone: Comment on above: Expected: 01/01/2024 (Approximate), Expi res: 04/01/2024 Start: 12-21-2023 End: 12-21-2023 Patient encounter procedure 12/21/2023 1:00 PM EDT Procedure [facility] [address] [place] [address] new dual ppm-6 WEEK CHK/BSX/Vitebskiy [facility] Comment on above: new dual ppm-6 WEEK CHK/BSX/Vitebskiy Start: 12-13-2023 End: 12-13-2023 Patient encounter procedure 12/13/2023 10:00 AM EDT Appointment [facility] [address] [place] [address] Keisha [place] RN [address] [place] [phone] - MDobbins - s/p pacemaker, HTN, medication compliance, UTI - vs more visits [facility] Comment on above: [id number] - MDobbins - s/p pacemaker, HTN, m edication compliance, UTI - vs more visits Start: 12-08-2023 End: 12-08-2023 Patient encounter procedure [facility] [place] Comment on above: [facility] follow up 11/27 for hypoglycemia Start: 12-07-2023 Urine microalbumin profile [facility] Start: 12-06-2023 End: 12-06-2023 Home visit [facility] Comment on above: [id number] - MDobbins - s/p pacemaker, HTN, m edication compliance, UTI - NOMNC Start: 12-01-2023 End: 12-01-2023 Home visit 12/01/2023 9:00 AM EDT Home Care Visit [facility] [address] [place] [address] Keisha Westbrook RN [address] [place] [phone] - MDobbins - s/p pacemaker, HTN, medication compliance, UTI [facility] Comment on above: [id number] - MDobbins - s/p pacemaker, HTN, m edication compliance, UTI Start: 11-28-2023 End: 11-28-2023 Home visit [facility] Comment on above: [id number] - MDobbins - s/p pacemaker, HTN, m edication compliance, UTI Start: 11-23-2023 End: 11-23-2023 Home visit [facility] Comment on above: [id number] - MDobbins - s/p pacemaker, HTN, m edication compliance, UTI Start: 11-21-2023 End: 11-21-2023 Home visit [facility] Comment on above: [id number] MSWE 11/19-11/23 - ADD TO CARE [id number] - MDobbins - s /p pacemaker, HTN, medication compliance, UTI - BP Monitoring Start: 11-20-2023 End: 11-20-2023 Patient encounter procedure [facility] Comment on above: [id number] CM [id number] 6/10 [place] Atrioventric ular block, complete [id number] CM [id number] 6/10 [place] Atrioventricular block, complete Can assign to Keisha Westbrook Start: 11-17-2023 End: 11-17-2023 Patient encounter procedure [facility] Comment on above: [id number] CM [id number] 6/5 [place] Atrioventricu lar block, complete Start: 11-16-2023 Hepatitis C antibody, confirmatory test DILATED RETINAL EXAM [facility] Start: 11-16-2023 End: 11-16-2023 ambulatory 11/16/2023 1:00 PM EDT [facility] [address] [place], [place] [id number] Wound Check - [phone] [facility] Comment on above: Wound Check - [phone] Start: 10-15-2023 ANNUAL PCP TEAM CHRONIC DISEASE VISIT ANNUAL PCP TEAM CHRONIC DISEASE VISIT [facility] Start: 10-15-2023 BP CONTROLLED (<130/80) BP CONTROLLED (<130/80) [facility] in Start: 10-09-2023 End: 10-09-2023 Patient encounter procedure 10/09/2023 10:40 AM EDT Office Visit [facility] [place] [address] [place] [address] [id number] Lissett Devries APRN.[employer] [address] [place] [address] Follow Up [facility] [place] Comment on above: Follow Up Start: 08-18-2023 ANNUAL PCP TEAM CHRONIC DISEASE VISIT ANNUAL PCP TEAM CHRONIC DISEASE VISIT [facility] Start: 08-18-2023 BP CONTROLLED (<130/80) BP CONTROLLED (<130/80) [facility] Start: 06-28-2023 Complete blood count Hemoglobin/Hematocrit [facility] Start: 06-28-2023 Creatinine measurement Serum Creatinine [facility] Start: 06-28-2023 HEMOGLOBIN/HEMATOCRIT HEMOGLOBIN/HEMATOCRIT [facility] Start: 06-28-2023 Hepatitis B surface antibody level LDL CHOLESTEROL [facility] Start: 06-28-2023 SERUM CREATININE SERUM CREATININE [facility] Start: 06-14-2023 ANNUAL PCP TEAM CHRONIC DISEASE VISIT ANNUAL PCP TEAM CHRONIC DISEASE VISIT [facility] Start: 06-12-2023 Advance Directive Discussion Advance Directive Discussion [facility] Start: 05-16-2023 Hepatitis C antibody, confirmatory test DILATED RETINAL EXAM [facility] Start: 05-13-2023 ANNUAL PCP TEAM CHRONIC DISEASE VISIT ANNUAL PCP TEAM CHRONIC DISEASE VISIT [facility] Start: 05-13-2023 PNEUMOCOCCAL: 65+ (1 - PCV) PNEUMOCOCCAL: 65+ (1 - PCV) [facility] Comment on above: Postponed from 1957 (Declined at t his time) Start: 02-15-2023 ANNUAL PCP TEAM CHRONIC DISEASE VISIT ANNUAL PCP TEAM CHRONIC DISEASE VISIT [facility] Start: 02-14-2023 End: 04-16-2023 25-hydroxyvitamin D3 [Mass/volume] in Serum or Plasma VITAMIN D 25 HYDROXY Lab Routine Vitamin D deficiency Expected: 02/14/2023 (Approximate), Expires: 04/16/2023 [facility] Work Phone: Comment on above: Expected: 02/14/2023 (Approximate), Expi res: 04/16/2023 Start: 02-14-2023 End: 04-16-2023 ALBUMIN/CREAT RATIO RND UR ALBUMIN/CREAT RATIO RND UR Lab Routine 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 (HCC) Expected: 02/14/2023 (Approximate), Expires: 04/16/2023 [facility] Work Phone: Comment on above: Expected: 02/14/2023 (Approximate), Expi res: 04/16/2023 Start: 02-14-2023 End: 04-16-2023 CBC panel - Blood by Automated count CBC Lab Routine Essential hypertension Expected: 02/14/2023 (Approximate), Expires: 04/16/2023 [facility] Work Phone: Comment on above: Expected: 02/14/2023 (Approximate), Expi res: 04/16/2023 Start: 02-14-2023 End: 04-16-2023 Comprehensive metabolic 2000 panel - Serum or Plasma COMP METABOLIC PANEL Lab Routine 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 (HCC) Essential hypertension Expected: 02/14/2023 (Approximate), Expires: 04/16/2023 [facility] Work Phone: Comment on above: Expected: 02/14/2023 (Approximate), Expi res: 04/16/2023 Start: 02-14-2023 End: 04-16-2023 Hemoglobin A1c in Blood HGB A1C Lab Routine 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 (HCC) Expected: 02/14/2023 (Approximate), Expires: 04/16/2023 [facility] Work Phone: Comment on above: Expected: 02/14/2023 (Approximate), Expi res: 04/16/2023 Start: 02-14-2023 End: 04-16-2023 Lipid 1996 panel - Serum or Plasma LIPID PANEL BASIC Lab Routine Mixed hyperlipidemia Expected: 02/14/2023 (Approximate), Expires: 04/16/2023 [facility] Work Phone: Comment on above: Expected: 02/14/2023 (Approximate), Expi res: 04/16/2023 Start: 02-10-2023 Covid-19 Vaccine () Covid-19 Vaccine () [facility] Start: 02-10-2023 Hepatitis B screening URINE ALBUMIN:CREATININE RATIO [facility] Start: 02-10-2023 Hepatitis B surface antibody level LDL CHOLESTEROL [facility] Start: 02-10-2023 SERUM CREATININE SERUM CREATININE [facility] Start: 12-26-2022 Hemoglobin A1c measurement HbA1C [facility] Start: 12-26-2022 Hemoglobin A1c/Hemoglobin.total in Blood HBA1C [facility] Start: 10-12-2022 ANNUAL PCP TEAM CHRONIC DISEASE VISIT ANNUAL PCP TEAM CHRONIC DISEASE VISIT [facility] Start: 10-08-2022 HEMOGLOBIN/HEMATOCRIT HEMOGLOBIN/HEMATOCRIT [facility] Start: 10-08-2022 Hepatitis B screening URINE ALBUMIN:CREATININE RATIO [facility] Start: 10-08-2022 Hepatitis B surface antibody level LDL CHOLESTEROL [facility] Start: 10-08-2022 SERUM CREATININE SERUM CREATININE [facility] Start: 08-30-2022 Hepatitis C antibody, confirmatory test DILATED RETINAL EXAM [facility] Start: 08-11-2022 Patient discharge [facility] Start: 08-10-2022 Hemoglobin A1c/Hemoglobin.total in Blood HBA1C [facility] Start: 08-10-2022 Nil by mouth [facility] Start: 08-09-2022 [facility] Start: 08-09-2022 [facility] Start: 08-07-2022 Laparoscopy Diagnostic Laparoscopy (Not Applicable) [facility] Start: 08-06-2022 End: 08-07-2022 [facility] Start: 08-06-2022 Application of intermittent pneumatic compression device [facility] Start: 08-06-2022 Consultation [facility] Start: 08-06-2022 Insertion of nasogastric tube [facility] Start: 08-06-2022 Aspiration precautions [facility] Start: 08-06-2022 Elevation of head of bed [facility] Start: 08-06-2022 Admission procedure [facility] Start: 08-06-2022 Following clinical pathway protocol [facility] Start: 08-06-2022 Verification routine [facility] Start: 08-06-2022 Insertion of nasogastric tube [facility] Start: 08-06-2022 Notification of physician [facility] Start: 08-06-2022 Fall prevention [facility] Start: 08-06-2022 Introduction of urinary catheter [facility] Start: 08-06-2022 Oxygen therapy [facility] Start: 08-06-2022 Referral to occupational therapist [facility] Start: 08-06-2022 Referral to service [facility] Start: 08-06-2022 Care regimes management [facility] Start: 08-06-2022 Plain X-ray abdomen Abdomen Single View (Portable) [facility] Start: 08-06-2022 XR Abdomen Single view [facility] Start: 08-06-2022 Patient referral to dietitian [facility] Start: 07-29-2022 COVID-19 VACCINE (5 - Pfizer series) COVID-19 VACCINE (5 - Pfizer series) [facility] Start: 07-02-2022 End: 09-01-2022 Bacteria identified in Urine by Culture URINE CULTURE Microbiology Routine Foul smelling urine Expected: 07/02/2022, Expires: 09/01/2022 [facility] Work Phone: Comment on above: Expected: 07/02/2022, Expires: 3 Start: 07-02-2022 End: 09-01-2022 Urinalysis complete panel - Urine URINALYSIS, WITH MICROSCOPIC Lab Routine Foul smelling urine Expected: 07/02/2022, Expires: 09/01/2022 [facility] Work Phone: Comment on above: Expected: 07/02/2022, Expires: 3 Start: 06-21-2022 3 comp foot exam completed DIABETIC FOOT EXAM [facility] Start: 06-21-2022 BP CONTROLLED (<130/80) BP CONTROLLED (<130/80) [facility] Start: 06-21-2022 Diabetic foot examination Diabetic Foot Exam [facility] Start: 06-12-2022 End: 08-12-2022 25-hydroxyvitamin D3 [Mass/volume] in Serum or Plasma VITAMIN D 25 HYDROXY Lab Routine Vitamin D deficiency Expected: 06/12/2022 (Approximate), Expires: 08/12/2022 [facility] Work Phone: Comment on above: Expected: 06/12/2022 (Approximate), Expi res: 08/12/2022 Start: 06-12-2022 ADVANCE DIRECTIVE DISCUSSION ADVANCE DIRECTIVE DISCUSSION [facility] Start: 06-12-2022 End: 08-12-2022 CBC panel - Blood by Automated count CBC Lab Routine Essential hypertension Type 2 diabetes mellitus with chronic kidney disease, without long-term current use of insulin, unspecified CKD stage (HCC) Expected: 06/12/2022 (Approximate), Expires: 08/12/2022 [facility] Work Phone: Comment on above: Expected: 06/12/2022 (Approximate), Expi res: 08/12/2022 Start: 06-12-2022 End: 08-12-2022 Comprehensive metabolic 2000 panel - Serum or Plasma COMP METABOLIC PANEL Lab Routine Essential hypertension Type 2 diabetes mellitus with chronic kidney disease, without long-term current use of insulin, unspecified CKD stage (HCC) Expected: 06/12/2022 (Approximate), Expires: 08/12/2022 [facility] Work Phone: Comment on above: Expected: 06/12/2022 (Approximate), Expi res: 08/12/2022 Start: 06-12-2022 End: 08-12-2022 Hemoglobin A1c in Blood HGB A1C Lab Routine Type 2 diabetes mellitus with chronic kidney disease, without long-term current use of insulin, unspecified CKD stage (HCC) Expected: 06/12/2022 (Approximate), Expires: 08/12/2022 [facility] Work Phone: Comment on above: Expected: 06/12/2022 (Approximate), Expi res: 08/12/2022 Start: 06-12-2022 End: 08-12-2022 Lipid 1996 panel - Serum or Plasma LIPID PANEL BASIC Lab Routine Mixed hyperlipidemia Type 2 diabetes mellitus with chronic kidney disease, without long-term current use of insulin, unspecified CKD stage (HCC) Expected: 06/12/2022 (Approximate), Expires: 08/12/2022 [facility] Work Phone: Comment on above: Expected: 06/12/2022 (Approximate), Expi res: 08/12/2022 Start: 04-09-2022 Hemoglobin A1c/Hemoglobin.total in Blood HBA1C [facility] Start: 02-16-2022 COLORECTAL CANCER SCREENING COLORECTAL CANCER SCREENING [facility] Comment on above: Postponed from 01/12/1996 (Declined at t his time) Start: 02-12-2022 End: 04-14-2022 25-hydroxyvitamin D3 [Mass/volume] in Serum or Plasma VITAMIN D 25 HYDROXY Lab Routine Vitamin D deficiency Expected: 02/12/2022 (Approximate), Expires: 04/14/2022 [facility] Work Phone: Comment on above: Expected: 02/12/2022 (Approximate), Expi res: 04/14/2022 Start: 02-12-2022 End: 04-14-2022 ALBUMIN/CREAT RATIO RND UR ALBUMIN/CREAT RATIO RND UR Lab Routine Microalbuminuria due to type 2 diabetes mellitus (HCC) Expected: 02/12/2022 (Approximate), Expires: 04/14/2022 [facility] Work Phone: Comment on above: Expected: 02/12/2022 (Approximate), Expi res: 04/14/2022 Start: 02-12-2022 End: 04-14-2022 CBC panel - Blood by Automated count CBC Lab Routine Primary Hypertension Expected: 02/12/2022 (Approximate), Expires: 04/14/2022 [facility] Work Phone: Comment on above: Expected: 02/12/2022 (Approximate), Expi res: 04/14/2022 Start: 02-12-2022 End: 04-14-2022 Comprehensive metabolic 2000 panel - Serum or Plasma COMP METABOLIC PANEL Lab Routine Type 2 diabetes mellitus 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, 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 (HCC) Primary Hypertension Microalbuminuria due to type 2 diabetes mellitus (HCC) Expected: 02/12/2022 (Approximate), Expires: 04/14/2022 [facility] Work Phone: Comment on above: Expected: 02/12/2022 (Approximate), Expi res: 04/14/2022 Start: 02-12-2022 End: 04-14-2022 Hemoglobin A1c in Blood HGB A1C Lab Routine Type 2 diabetes mellitus 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, 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 (HCC) Expected: 02/12/2022 (Approximate), Expires: 04/14/2022 [facility] Work Phone: Comment on above: Expected: 02/12/2022 (Approximate), Expi res: 04/14/2022 Start: 02-12-2022 End: 04-14-2022 Lipid 1996 panel - Serum or Plasma LIPID PANEL BASIC Lab Routine Mixed hyperlipidemia Expected: 02/12/2022 (Approximate), Expires: 04/14/2022 [facility] Work Phone: Comment on above: Expected: 02/12/2022 (Approximate), Expi res: 04/14/2022 Start: 12-16-2021 COVID-19 VACCINE (4 - Booster for Pfizer series) COVID-19 VACCINE (4 - Booster for Pfizer series) [facility] Start: 10-11-2021 COVID-19 VACCINE (4 - Booster for Pfizer series) COVID-19 VACCINE (4 - Booster for Pfizer series) [facility] Start: 03-02-2017 Mammography MAMMOGRAM [facility] Start: 03-02-2017 Screening for malignant neoplasm of breast Mammogram Screening [facility] Start: 2011 RSV Vaccine (1 - 1-dose 60+ series) RSV Vaccine (1 - 1-dose 60+ series) [facility] Start: 2011 RSV Vaccine (1 - Risk 60-74 years 1-dose series) RSV Vaccine (1 - Risk 60-74 years 1-dose series) [facility] Start: 01-12-1996 COLOGUARD (FIT-DNA) COLOGUARD (FIT-DNA) [facility] Start: 01-12-1996 Colonoscopy COLONOSCOPY [facility] Start: 01-12-1996 COLORECTAL CANCER SCREENING COLORECTAL CANCER SCREENING [facility] Start: 01-12-[address] COLONOGRAPHY [facility] Start: 01-12-1996 FECAL OCCULT BLOOD FECAL OCCULT BLOOD [facility] Start: 01-12-1996 Screening for malignant neoplasm of colon [facility] Start: 01-12-1996 SIGMOIDOSCOPY SIGMOIDOSCOPY [facility] Start: 1970 Pneumococcal Vaccine: 50+ (1 of 2 - PCV) Pneumococcal Vaccine: 50+ (1 of 2 - PCV) [facility] Start: 1957 Pneumococcal Vaccine: 65+ (1 of 2 - PCV) Pneumococcal Vaccine: 65+ (1 of 2 - PCV) [facility] Start: 1957 PNEUMOCOCCAL: 65+ (1 - PCV) PNEUMOCOCCAL: 65+ (1 - PCV) [facility] Anion gap in Serum o r Plasma [facility] Bilirubin measuremen t, urine [facility] BUN/Creatinine ratio [facility] Calcium [Mass/volume ] in Serum or Plasma [facility] Carbon dioxide, tota l [Moles/volume] in Central venous blood [facility] COLOGUARD COLOGUARD Lab Ro utine Colon cancer screening Ordered: 05/13/2022 [facility] Work Phone: Comment on above: Ordered: 05/13/2022 Creatinine [Mass/vol ume] in Serum or Plasma [facility] End: 10-17-2025 DBT Breast - bilateral screening SEEMA SCREENING W [facility] Radiology Routine Encounter for screening mammogram for breast cancer 1 Occurrences starting 09/17/2024 until 10/17/2025 [facility] Work Phone: Comment on above: 1 Occurrences starting 09/17/2024 until 10/17/2025 Erythrocyte mean corpuscular volume determination [facility] Glucose [Mass/volume ] in Serum or Plasma [facility] Hematocrit [Volume Fraction] of Blood [facility] Hemoglobin [Mass/vol ume] in Blood [facility] Hemoglobin [Presence ] in Urine [facility] Leukocytes [#/volume ] in Blood [facility] Magnesium [Mass/volu me] in Serum or Plasma [facility] End: 12-09-2023 SEEMA SCREENING SEEMA SCREENING Radiology Routine Encounter for screening mammogram for breast cancer 1 Occurrences starting 11/09/2022 until 12/09/2023 [facility] Work Phone: Comment on above: 1 Occurrences starting 11/09/2022 until 12/09/2023 Mean corpuscular hemoglobin concentration determination [facility] Mean corpuscular hemoglobin determination [facility] Measurement of keton es in urine using dipstick [facility] Measurement of occul t blood in stool specimen using immunoassay [facility] Measurement of renal function [facility] MG Breast - bilatera l Screening [facility] End: 11-16-2024 MG Breast Screening SEEMA SCREENING Radiology Routine Encounter for screening mammogram for breast cancer 1 Occurrences starting 10/18/2023 until 11/16/2024 [facility] Work Phone: Comment on above: 1 Occurrences starting 10/18/2023 until 11/16/2024 Microscopic urinalysis [facility] Neutrophil count [facility] Neutrophil percent differential count [facility] Patient Education [facility] Work Phone: Patient referral [facility] Work Phone: pH of Urine [facility] Platelets [#/volume] in Blood [facility] Potassium measurement [facility] Red blood cell count [facility] Red cell distributio n width determination [facility] End: 01-07-2023 Screening mammography bi 2-view breast inc cad SEEMA SCREENING Radiology Routine Encounter for screening mammogram for breast cancer 1 Occurrences starting 12/08/2021 until 01/07/2023 [facility] Work Phone: Comment on above: 1 Occurrences starting 12/08/2021 until 01/07/2023 Serum chloride measurement [facility] Sodium measurement [facility] Specific gravity of Urine [facility] Urea nitrogen [Mass/volume] in Serum or Plasma [facility] Urinalysis, blood, qualitative [facility] Urine dipstick for glucose [facility] Urine dipstick for leukocyte esterase [facility] Urine dipstick for nitrite [facility] Urine dipstick for protein [facility] Urine examination [facility] Urine microscopy: epithelial cells [facility] Urine Microscopy: wh ite cells [facility] Urobilinogen [Presen ce] in Urine [facility] Immunizations Immunization Date Immunization Notes Care Provider Laura burk 03-28-2022 COVID-19 booster vaccine, age 12+ yr, bivalent (PFIZER-BIONTECH) Ma Nurse Work Phone: [facility] Work Phone: 08-16-2021 Covid (Pfizer) Dr. Carmen roldan MD Work Phone: [facility] 08-16-2021 COVID-19 vaccine, ag e 12+ yr (PFIZER-BIONTECH - [facility]) Carmen Johnson MD Work Phone: [facility] Work Phone: 03-09-2021 COVID-19 vaccine, ag e 12+ yr (PFIZER-BIONTECH - PURPLE TOP) Carmen Johnson MD Work Phone: [facility] 02-16-2021 COVID-19 vaccine, ag e 12+ yr (PFIZER-BIONTECH - PURPLE TOP) Carmen Johnson MD Work Phone: [facility] 12-06-2013 tetanus toxoid, redu donald diphtheria toxoid, and acellular pertussis vaccine, adsorbed Carmen Johnson MD Work Phone: [facility] 05-31-2011 tuberculin skin test ; purified protein derivative solution, intradermal Carmen Johnson MD Work Phone: [facility] 05-24-2011 tuberculin skin test ; purified protein derivative solution, intradermal Carmen Johnson MD Work Phone: [facility] Payers Date Payer Category Payer Self-pay [id number] 2016 Medicare MEDICARE MEDICAR E A AND B [id number] 2016-Present [phone] [address] [address] [place] [address] Medicare [id number] 2016 Medicare [id number] 2016 Medicare [id number] Unknown [id number] Unknown [id number] Unknown [id number] Social History Date Type Detail Facility Start: 11-19-2010 End: 11-18-2024 Tobacco smoking status NHIS Never smoked tobacco [facility] Start: 06-21-2021 End: 09-20-2024 Alcohol intake Current non-drinker of alcohol (finding) [facility] Start: 1950 Sex Assigned At Not on file C [facility] Start: 10-02-2021 End: 05-13-2022 Exposure to SARS-CoV-2 (event) Not sure [facility] Start: 11-19-2010 Tobacco use and exposure Smokeless tobacco non-user [facility] Work Phone: Start: 02-27-2022 End: 03-09-2022 Exposure to SARS-CoV-2 (event) Unable to assess [facility] Work Phone: Start: 04-11-2022 End: 08-06-2022 Tobacco smoking status NHIS Unknown if ever smoked [facility] Start: 03-03-2019 None [facility] Start: 03-03-2019 Alone [facility] Start: 1950 Sex Assigned At Female [facility] Start: 10-14-2022 End: 09-20-2024 History of Social function [facility] Start: 10-14-2022 End: 09-20-2024 Tobacco use panel [facility] Adult Depression Screening Assessment 0 [facility] Has the [employer], [employer], [employer]sm, or water company threatened to shut off services in your home in past 12Mo No [facility] Work Phone: (I/We) worried freeman er (my/our) food would run out before (I/we) got money to buy more. Never true [facility] Start: 09-26-2024 Sex Female (finding) [facility] Sexual Orientation Heterosexual (finding) [facility] NEGATED: Highlighted row [facility] Medical Equipment Procedure Code Equipment Code Equipment Origin al Text Equipment Identifier Dates [id number], [id number], [id number], [id number], [id number] Start: 03-13-2020 End: 12-12-2023 Comment on above: Test blood sugar(s) once daily as directed. Dx: E11.22. Insulin: no Goals Date Patient Goal Desired Activity /State Personal health goal Functional Status Date Assessment Result Facility 11-15-2023 Are you deaf, or do you have serious difficulty hearing No 11/15/2023 12:44 PM EDDonny Causey, RN No [facility] 11-15-2023 Are you blind, or do you have serious difficulty seeing, even when wearing glasses No 11/15/2023 12:44 PM EDDonny Causey, RN No [facility] 11-15-2023 Do you have serious difficulty walking or climbing stairs No 11/15/2023 12:44 PM EDT Donny Bourgeois, RN No [facility] 11-15-2023 Do you have difficul ty dressing or bathing No 11/15/2023 12:44 PM EDDonny Causey, RN [facility] 11-15-2023 Because of a physica l, mental, or emotional condition, do you have difficulty doing errands alone such as visiting a physician's office or shopping No 11/15/2023 12:44 PM EDDonny Causey, RN No [facility] 08-11-2022 Functional status Ambulates [facility] Work Phone: Mental Status Date Assessment Result Facility 11-15-2023 Because of a physica l, mental, or emotional condition, do you have serious difficulty concentrating, remembering, or making decisions No 11/15/2023 12:44 PM EDDonny Causey, RN No [facility] 08-11-2022 Cognitive function Suspicious [facility] Work Phone: 08-10-2022 Cognitive function Arousable To Light Helio n [facility] Work Phone: 04-22-2022 Cognitive function Level Of Cons ciousness Awake;Alert;Appropriate [facility] Work Phone: 04-11-2022 Cognitive function Level Of Cons ciousness Awake;Follows Commands;Drowsy [facility] Work Phone: Clinical Notes 07-14-2016 to 11-08-2024 Telephone Encounter - Winston Gutierrez LPN - 11/08/2024 3:20 PM EDTTelephone Encounter - Winston Gutierrez LPN - 11/08/2024 3:20 PM EDT Note Date & Type Note Facility 11-08-2024 Telephone encounter Note Opened in error. Winston Gutierrez LPN [facility] 11-08-2024 Miscellaneous Notes Opened in error. Winston Gutierrez LPN documented in this encounter [facility] 10-15-2024 Telephone encounter Note Detailed message was left for patient. [facility] 10-15-2024 Miscellaneous Notes Detailed message was [...] Dr. Johnson: 01/10/24. documented in this encounter [facility] 10-15-2024 Telephone encounter Note ok [facility] 10-15-2024 Telephone encounter Note Pt reports [...] Brambila. Last ov with Dr. Johnson: 01/10/24. [facility] 10-03-2024 Note HNO ID: [id number] Author: BETTY LYONS MA Service: ? Author Type: Hospice Volunteer Coordinator Type: Progress Notes Filed: 10/03/2024 09:24 [...] Lyons MA October 03, 2024 8:[address] [facility] 10-03-2024 Note Patient Outreach (ANAYEIL TNAV) NAGELICA TORIBIO ([id number]) 1950 F Date Time Provider Department 10/03/24 [...] Date Reviewed: 09/20/2024 Reviewed by: Ximena Maciel APRN.JOURNEYMAN CARPENTER - Fully Assessed Reason for Visit: Population [...] 11/09/2023 11/15/2023 Mal (more content not included)... [facility] 09-25-2024 Evaluation note Diagnosis Onset Date Resolution Breast cancer screening acute September 25, 2024 8:15am Cardiac murmur acute September 8:15am Colon cancer screening acute Ap ril 2024 8:15am Concern about memory acute Apri l 2024 8:15am Weight loss acute September 25, 2 025 8:15am HTN (hypertension) chronic September 25, 2024 8:15am [facility] Work Phone: 1(856) 120-331804-16-2025 Evaluation note* Diagnosis Onset Date Resolution Status [...] 2024 1:02pm Hypokalemia noneactive November 18 1:02pm [facility] Work Phone: 1(460) 562-645204-16-2025 Evaluation note* Diagnosis Onset Date Resolution Status [...] 2024 1:02pm Hypokalemia noneactive November 18 1:02pm [facility] Work Phone: 1(677) 455-963804-11-2025 Instructions* Patient Instructions* Ximena Maciel APRN.CNP - [...] This condition requires evaluation by a general cosmetology educator. - A referral has been placed for [facility], as it is closer to your location. Please callthem to schedule an appointment. If you prefer to see a cosmetology educator at this clinic, let us know, and [...] - Schedule an appointment with a general cosmetology educator to evaluate your heart murmur and mitral valve stenosis. - Contact your primary care provider to discuss your weight loss and blood pressure. - Inform your eye doctor about your pacemaker and heart murmur before your surgery. If you experience worsening shortness of breath, chest pain, dizziness, or any other concerning symptoms, please seek medical attention promptly. documented in this encounterCleveland Clinic [facility]04-11-2025 History of Present illness Narrative* Ximena Maciel APRN.JOURNEYMAN CARPENTER - 09/20/2024 7:30 AM EDT Images from the original note were not included. [facility] General Cardiology Electrophysiology PRIMARY CARE PHYSICIAN: Carmen Johnson [address] [place] [address] CHIEF COMPLAINT: Cardiovascular medicine follow-up for pacemaker. [...] pacemaker implantation. She underwent implantation of a [employer] dual chamber pacemaker with Dr. Ramachandran [...] valve calcification. She underwent implantation of a [employer] dual-chamber pacemaker on 11/07/[address] [...] currently under the care of a general cosmetology educator. PAST MEDICAL HISTORY Diagnosis Date Anxiety state, unspecified Displacement of lumbar intervertebral disc without myelopathy DM type 2 (diabetes mellitus, type 2) (HCC) Edema Other malaise and fatigue Unspecified essential hypertension PAST SURGICAL HISTORY Procedure Laterality Date BASIC PACEMAKER DUAL CHAMBER Left 11/07/2023 [employer] dual PPM for CHB; Dr. Orozco at [facility] TOTAL ABDOMINAL HYSTERECT W/WO RMVL TUBE OVARY 06/12/1992 Hysterectomy, Partial-one ovary left Social History Tobacco Use Smoking status: Never Smokeless tobacco: Never Vaping Use Vaping status: Never Used Substance Use Topics Alcohol use: No Drug use: No Family History Problem Relation Age of Onset Heart Father [place] Osteoporosis Mother ? ALLERGIES Allergen Reactions Poison [...] CC echocardiographic exam for comparison. Device Check: [facility] Device Clinic 08/30/2024: Report copied forward: PM remote interrogation. Presenting EGM: /ASBESTOS SURVEYOR @ 72 bpm. Interrogation shows no ventricular high rates and 3 mode switch episodes since last check. Longest ATR episodes, 2 seconds each. PMT noted, EGMs show tracking of atrial rates. Lead impedances and sensing measurements stable. Battery voltage stable. Recommended replacement time is 7.5 yrs. I have personally reviewed the Electrocardiogram: 09/20/2024 -atrial sensed ventricular paced rhythm, 81 bpm, ID 158 ms, QRS 138 ms, QT/QTc 418/485 [...] [facility] for evaluation by a general cosmetology educator. Return in about 1 year (around 09/20/2025) for Dr. Orozco or [facility]. The patient consented to the use of [employer] software for draft documentation of the visit consistent with [facility] s Notice of Privacy Practices. Ximena [...] to correct any errors. documented in this encounterCleveland Clinic [facility]04-11-2025 NoteHNO ID: [id number] Author: XIMENA MACIEL APRN.CNP Service: ? Author Type: Nurse Practitioner Type: Progress Notes Filed: 09/20/2024 08:06 Note Text: [facility] [place] General Cardiology Electrophysiology PRIMARY CARE PHYSICIAN: Carmen Johnson [address] [place] [phone] CHIEF COMPLAINT: Cardiovascular medicine follow-up for pacemaker. [...] pacemaker implantation. She underwent implantation of a [employer] dual chamber pacemaker with Dr. Ramachandran [...] valve calcification. She underwent implantation of a [employer] dual-chamber pacemaker on 11/07/[address] [...] currently under the care of a general cosmetology educator. PAST MEDICAL HISTORY Diagnosis Date Anxiety state, unspecified Displacement of lumbar intervertebral disc without myelopathy DM type 2 (diabetes mellitus, type 2) (HCC) Edema Other malaise and fatigue Unspecified essential hypertension PAST SURGICAL HISTORY Procedu (more content not included)...[facility]04-08-2025 Telephone encounter Note* Telephone Encounter - Cherry Aguirre - 09/17/2024 9:42 AM EDT Cardiac Clearance received from [facility] for vitreous hemorrhage removal and AC for hyphema, right eye on 09/18/2024 Form scanned and placed in 's box for review. Cherry Aguirre [facility]04-08-2025 Miscellaneous Notes* Telephone Encounter - Cherry Aguirre - 09/17/2024 9:42 AM EDT Cardiac Clearance received from [facility] for vitreous hemorrhage removal and AC for hyphema, right eye on 09/18/2024 Form scanned and placed in 's box for review. Cherry Aguirre documented in this encounterCleveland Clinic [facility]04-08-2025 NotePatient Outreach (INTMWS) ANGELICA TORIBIO ([id number]) 1950 F IPA Date Time Provider Department [...] breast cancer [Z12.31] Order(s):SEEMA SCREENING W SABIHA [[id number]] Order #: [id number] FUTURE Prescriptions as of 10/18/2024 - hydrALAZINE [...] 11/15/2023 Encounter Status:Closed by CHAR SANTAMARIA on 10/18/24[facility] 09-02-2024 NoteHNO ID: [id number] Author: BETTY LYONS MA Service: ? Author Type: Hospice Volunteer Coordinator Type: Progress Notes Filed: 09/04/2024 08:31 [...] Betty Lyons MA September 02, 2024 8:27 [facility]03-24-2025 History of Present illness Narrative* Betty Lyons MA - 09/02/2024 8:27 AM EDT [...] 02, 2024 8:27 AM documented in this encounterCleveland Clinic [facility]03-24-2025 NotePatient Outreach (NETNAV) ANGELICA TORIBIO ([id number]) 1950 F Date Time Provider Department 09/02/24 [...] species [N39.0, B96 (more content not included)... [facility]02-27-2025 NoteHNO ID: [id number] Author: ANYA MCCORMACK MA Service: ? Author Type: Hospice Volunteer Coordinator Type: Progress Notes Filed: 08/08/2024 12:39 Note Text: POPULATION HEALTH NAVIGATION OUTREACH Action/FYI Letter received and sent to be mailed Anya Mccormack MA Navigation Signature: Anya Mccormack MA August 08, 2024 12:38 [facility]02-20-2025 NoteHNO ID: [id number] Author: BETTY LYONS MA Service: ? Author Type: Hospice Volunteer Coordinator Type: Progress Notes Filed: 08/01/2024 08:37 [...] Betty Lyons MA August 01, 2024 7:32 [facility]02-20-2025 History of Present illness Narrative* Betty Lyons [...] 01, 2024 7:32 AM documented in this encounterCleveland Clinic [facility]02-20-2025 NoteHNO ID: [id number] Author: BETTY LYONS MA Service: ? Author Type: Hospice Volunteer Coordinator Type: Progress Notes Filed: 08/01/2024 07:46 Note Text: [facility] History of Present illness Narrative* Betty Lyons MA - 08/01/2024 7:24 AM EST OPENED IN ERROR documented in this encounterCleveland Clinic [facility]02-20-2025 NotePatient Outreach (NETNAV) ANGELICA TORIBIO ([id number]) 1950 F Date Time Provider Department 08/01/24 [...] pacemaker [Z95.0] 11/09/2023 Hyp (more content not included)...[facility]02-19-2025 Telephone encounter Note* Telephone Encounter - Carina Cuenca LPN - 07/31/2024 3:32 PM EST Angelica Toribio wants to know if this pacemaker will be in for the rest of her life, patient also like to know if the bumping she feels from the pacemaker is normal ? Patient would also like to know if she should have a general cosmetology educator? Carina Cuenca LPN July 31, 2024 3:35 PM [facility]02-19-2025 Miscellaneous Notes* Telephone Encounter - Carina Cuenca LPN - 07/31/2024 3:32 PM EST Angelica Toribio wants to know if this pacemaker will be in for the rest of her life, patient also like to know if the bumping she feels from the pacemaker is normal ? Patient would also like to know if she should have a general cosmetology educator? Carina Cuenca LPN July 31, 2024 3:35 PM documented in this encounterCleveland Clinic [facility]02-07-2025 Telephone encounter Note * Telephone Encounter - Alisha Carranza - 07/19/2024 8:19 AM EST Pt called back returning call, phone number updated. Pt advised needed to reschedule appt missed Jesus, Patient declined at this time as she is not sure how she can get a ride. [facility]02-07-2025 Miscellaneous Notes* Telephone Encounter - Alisha [...] 18, 2024 5:35 PM documented in this encounterCleveland Clinic [facility]02-07-2025 Telephone encounter Note * Telephone Encounter - Heidi Mazariegos RN - 07/19/2024 8:10 AM EST Called patient and significant others number and no answer. Patients voicemail was full. Will need to call back later. Heidi Mazariegos RN [facility]02-07-2025 Telephone encounter Note* Telephone Encounter - [...] once daily. Authorizing Provider: CARMEN JOHNSON MD [facility]02-06-2025 Telephone encounter Note* Telephone Encounter - [...] Mazariegos RN July 18, 2024 5:35 PM [facility]01-20-2025 History of Present illness Narrative* Betty [...] 01, 2024 12:36 PM documented in this encounterCleveland Clinic [facility] Hospital01-20-2025 NoteHNO ID: [id number] Author: BETTY LYONS MA Service: ? 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 Maira Sherman RN [facility]11-01-2024 Miscellaneous Notes* Telephone Encounter - Maira [...] fax. Maira Sherman RN documented in this encounterCleveland Clinic [facility] Hospital07-31-2024 Telephone encounter Note * Telephone Encounter - Fariba Gannon RN - 01/10/2024 5:08 PM EDT Patient seen by PCP on 01/10/24. Fariba Gannon RN [facility]07-31-2024 Miscellaneous Notes* Telephone Encounter - Fariba [...] on these medications. She was seen at [facility] night and her after visit summary instructs her to ask pcp about how to take hydralazine 10 mg. Reports she does not have hydralazine 10 mg. She has hydralazine 25 mg (is aware pcp sent the 10 mg today, but it does not make sense to take 2.5 pills when she can just take 1). Reports [facility] did not instruct her on the amlodipine. [...] in compression socks for Pt to [facility] and call her when sent. Pt will [...] pills were prescribed when she was in [facility] hospital and at that time, [facility] also discontinued 2 medications prescribed by pcp. Patient doesn't know which ones were d/c'd. Patient declined appt with pcp office. Asking pcp to please advise and phone patient with reply. [phone] documented in this encounterCleveland Clinic [facility]07-31-2024 Instructions* Patient Instructions* Carmen Johnson MD [...] (1 to 1.5 months) documented in this encounterCleveland Clinic [facility] Hospital07-31-2024 NoteHNO ID: [id number] Author: CARMEN JOHNSON MD Service: ? Author Type: Physician Type: Progress Notes Filed: 02/16/2024 00:23 Note Text: This note was created using anfix. Subjective Angelica Toribio is a 73 year old female. Patient presents with: ED Follow-up: [place] ER follow up 01/07/24 SUBJECTIVE: Angelica Toribio is a 73 year old year old lady here today for ER follow up appointment for review of medical conditions. Feels good on current meds with current BP. Reviewed that had first Pacemaker check 01/02/24. Feels like a rumbling in her chest. So went to ER in [place]. Had pressure in chest. No feeling of reflux or indigestion. Ruled out for acute [facility]. Still taking hydralazine 25 mg TID. Amlodipine half of 10mg pill daily. Has cataracts--large in left and smaller in right. Will see Dr. Barragan at [facility]. Still getting shots for retina. PAST MEDICAL HISTORY No date: Anxiety state, unspecified No date: Displacement of lumbar intervertebral disc without myelopathy No date: DM type 2 (diabetes mellitus, type 2) ([facility]) No date: Edema No date: Other malaise [...] the date of the service which included [id number] patient care, completing clinical documentation, obtaining and/or reviewing separately obtained history, performing a medically appropriate examination, counseling and educating the patient/family/caregiver, ordering medications, tests, or procedures, independently interpreting results (not separately reported), and communicating results to the patient/family/caregiver. Cramen Johnson, [facility]07-31-2024 History of Present illness Narrative* Carmen Johnson MD - 01/10/2024 2:23 PM EDT This note was created using [email or web address]. Subjective Angelica Toribio is a 73 year old female. Patient presents with: ED Follow-up: [place] ER follow up 01/07/24 SUBJECTIVE: Angelica Toribio is a 73 year old year old lady here today for ER follow up appointment for review of medical conditions. Feels good on current meds with current BP. Reviewed that had first Pacemaker check 01/02/24. Feels like a rumbling in her chest. So went to ER in [place]. Had pressure in chest. No feeling of reflux or indigestion. Ruled out for acute [facility]. Still taking hydralazine 25 mg TID. Amlodipine half of 10mg pill daily. Has cataracts--large in left and smaller in right. Will see Dr. Barragan at [facility]. Still getting shots for retina. PAST MEDICAL HISTORY No date: Anxiety state, unspecified No date: Displacement of lumbar intervertebral disc without myelopathy No date: DM type 2 (diabetes mellitus, type 2) ([facility]) No date: Edema No date: Other malaise [...] the date of the service which included [id number] patient care, completing clinical documentation, obtaining and/or reviewing separately obtained history, performing a medically appropriate examination, counseling and educating the patient/family/caregiver, ordering medications, tests, or procedures, independently interpreting results (not separately reported), and communicating results to the patient/family/caregiver. Carmen Johnson MD documented in this encounterCleveland Clinic [facility]07-29-2024 Telephone encounter Note * Telephone Encounter - Marita Maciel RN - 01/08/2024 12:52 PM EDT See other telephone encounter. Marita Maciel RN [facility]07-29-2024 Miscellaneous Notes* Telephone Encounter - Marita [...] call back and schedule. documented in this encounterCleveland Clinic [facility] Hospital07-29-2024 Telephone encounter Note * Telephone Encounter - Marita Maciel RN - 01/08/2024 12:48 PM EDT Patient calls back and ER follow up visit set up with provider on 01/10/2024. Patient confused as to which medication to take. Patient states that she is going to take hydralazine 25 mg TID and amlodipine 5 mg until she sees provider at appointment. Marita Maciel RN [facility]07-29-2024 Telephone encounter Note* Telephone Encounter - [...] on these medications. She was seen at [facility] night and her after visit summary instructs her to ask pcp about how to take hydralazine 10 mg. Reports she does not have hydralazine 10 mg. She has hydralazine 25 mg (is aware pcp sent the 10 mg today, but it does not make sense to take 2.5 pills when she can just take 1). Reports [facility] did not instruct her on the amlodipine. [...] discuss againat appt with pcp next week. [facility]07-29-2024 Telephone encounter Note* Telephone Encounter - [...] a message to call back and schedule. [facility]07-29-2024 Telephone encounter Note* Telephone Encounter - [...] 10 mg tablets. Noted has 01/23 appointment. [facility]07-27-2024 Telephone encounter Note* Telephone Encounter - [...] in compression socks for Pt to [facility] and call her when sent. Pt will also need thethe 10 mg of Hydralazine called in. [facility]07-26-2024 Telephone encounter Note* Telephone Encounter - Hedii Mazariegos RN - 01/05/2024 3:10 PM EDT [...] hung up on me. Heidi Mazariegos, RN [facility]07-25-2024 Telephone encounter Note* Telephone Encounter - Jennifer Worley LPN - 01/04/2024 10:10 AM EDT Left message to call & speak to nurse. Jennifer Worley LPN [facility]07-25-2024 Telephone encounter Note* Telephone Encounter - [...] wait as long to be seen) T [facility]07-24-2024 Telephone encounter Note* Telephone Encounter - [...] pills were prescribed when she was in [facility] hospital and at that time, [facility] also discontinued 2 medications prescribed by pcp. Patient doesn't know which ones were d/c'd. Patient declined appt with pcp office. Asking pcp to please advise and phone patient with reply. [phone] T [facility]07-24-2024 NotePPM check, dual lead system with programming. ID x2. Here for 6 week f/u PM evaluation. Pt anxious for today's check. Left chest incision/pocket without signs of infection. Presenting rhythm: /ASBESTOS SURVEYOR @ 88 ppm. Interrogation shows no ventricular [...] under CARDIAC DATA AND REPORT, Scanned Documents section.[id number] Miscellaneous Notes* HH SN Agency DC - Keisha Westbrook RN - 12/13/2023 2:21 PM EDT SITUATION: [facility] agency discharge visit completed today. significant other [...] for additional medical questions/concerns. documented in this encounterCleveland Clinic [facility]07-03-2024 Patient's home Note* [facility] Agency DC - Keisha Westbrook RN - 12/13/2023 2:21 PM EDT SITUATION: [facility] agency discharge visit completed today. significant other [...] with Dr. Johnson for additional medical questions/concerns. [facility] Work Phone: 1(790) 635-270207-02-2024 Telephone encounter Note* Telephone Encounter - Jennifer [...] Please advise. Thank you. Jennifer Worley LPN. [facility]07-02-2024 Miscellaneous Notes* Telephone Encounter - Jennifer [...] you. Jennifer Worley LPN. documented in this encounterCleveland Clinic [facility] Hospital07-02-2024 Telephone encounter Note * Telephone Encounter - Jennifer Worley LPN - 12/12/2023 3:38 PM EDT Patient is calling for a refill of test strips, advised new RX sent to [facility], 11/29/2023, x50 strips, 11 refills. Also, Lancets, new RX sent to [facility], 12/04/2023, x100 each 11 refills. Advised Patient to check with pharmacy. Jennifer Worley LPN [facility]07-02-2024 Miscellaneous Notes* Telephone Encounter - Jennifer Worley LPN - 12/12/2023 3:38 PM EDT Patient is calling for a refill of test strips, advised new RX sent to [facility], 11/29/2023, x50 strips, 11 refills. Also, Lancets, new RX sent to [facility], 12/04/2023, x100 each 11 refills. Advised Patient to check with pharmacy. Jennifer Worley LPN documented in this encounterCleveland Clinic [facility] Hospital07-01-2024 History of Present illness Narrative* [place] [...] PATIENT PRESENTS WITH AN IMPLANTABLE OR ATTACHED LEAD MECHANIC: No RADIOLOGY DEPARTMENT: General X-ray: Exam(s) Completed: Chest X-Ray PERIPHERAL IV DATA: Not applicable SIGNED BY: RT Grace(R) December 11, 2023 4:43 PM documented in this encounterCleveland Clinic [facility] Hospital07-01-2024 NoteHNO ID: [id number] Author: JERSEY JULIAN RT(R) Service: Radiology Author [...] PATIENT PRESENTS WITH AN IMPLANTABLE OR ATTACHED LEAD MECHANIC: No RADIOLOGY DEPARTMENT: General X-ray: Exam(s) Completed: Chest X-Ray PERIPHERAL IV DATA: Not applicable SIGNED BY: Jersey Julian, RT(R) December 11, 2023 4:43 [facility]07-01-2024 Instructions* Patient Instructions* Carmen Johnson [...] least staying under 200. documented in this encounterCleveland Clinic [facility]mount Hospital07-01-2024 NoteHNO ID: [id number] Author: CARMEN JOHNSON MD Service: ? Author Type: Physician Type: Progress Notes Filed: 12/17/2023 23:34 Note Text: This note was created using anfix. Subjective Angelica Toribio is a 73 year old female. 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 Subjective Angelica Toribio is a 73 year old female. Patient presents with: ED Follow-up: [facility] follow up 11/27 then transferred to [facility] SUBJECTIVE: Angelica Toribio is a 73 [...] DM type 2 (diabetes mellitus, type 2) ([facility]) Edema Other malaise and fatigue Unspecified essential [...] without long- term current use of insulin ([facility]) E11.22 N18.31 Will if improves with staying [...] the date of the service which included [id number] patient care, completing clinical documentation, obtaining and/or reviewing separately obtained history, performing a medically appropriate examination, counseling and educating the patient/family/caregiver, ordering medications, tests, or procedures, independently interpreting results (not separately reported), and communicating results to the patient/family/caregiver. Carmen Johnson MD documented in this encounterCleveland Clinic [facility]06-24-2024 Telephone encounter Note * Telephone Encounter [...] Kitchen LPN December 04, 2023 1:46 PM [facility]06-24-[facility] Miscellaneous Notes* Telephone Encounter - Mindi [...] 04, 2023 1:46 PM documented in this encounterCleveland Clinic Mary[facility] Hospital06-19-2024 Telephone encounter Note * Telephone Encounter - Carmen Johnson MD - 11/29/2023 10:02 AM EDT Below noted The following approved medication requests have been transmitted electronically. Requested Prescriptions Signed Prescriptions Disp Refills blood sugar diagnostic (BLOOD GLUCOSE TEST) test strip 50 Strip 11 Sig: Test blood sugar(s) once daily as directed. Dx: E11.22. Insulin: no Authorizing Provider: CARMEN JOHNSON MD [facility]06-19-2024 Miscellaneous Notes* Telephone Encounter - Carmen [...] protein and balanced diet. documented in this encounterCleveland Clinic Mary[facility] Hospital06-19-2024 Telephone encounter Note * Telephone Encounter - Letty Carlos RN - 11/29/2023 10:00 AM EDT Pt set up for ER f/u visit on 12/07 [facility]06-19-[facility] Miscellaneous Notes* Telephone Encounter - Letty [...] 06/09/2020 7.2 03/05/2020 8.1 documented in this encounterCleveland Clinic Mary[facility] Hospital06-19-2024 Telephone encounter Note * Telephone Encounter [...] encouraged to eat protein and balanced diet. [facility]06-18-[facility] Telephone encounter Note* Telephone Encounter - [...] 6.8 08/18/2020 7.0 06/09/2020 7.2 03/05/2020 8.1 [facility]06-14-[facility] Telephone encounter Note* Telephone Encounter - Alvaro Medina LSW - 11/24/2023 11:40 AM EDT 11/24/23 [employer] called the pt. regarding [employer] visit and community resources. 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 [facility] discussed with the pt. [facility] The pt. stated she did not need more help and that her boyfriend lives with her and he assists her. [employer] asked the pt. about transportation. The pt. stated she needs transportation to the grocery store. She discussed with [employer] that her and her boyfriend took a taxi to [facility] the other day and she did not feel good and was taken to the ER and she stated she was not admitted. The pt. stated they ate at [facility]. The pt. stated that Keisha the Nurse was there yesterday and is coming back on Monday. The pt. stated there was another Nurse before Keisha and she could not think of her name. The pt. was talking with her boyfriend in the background and stated the Nusre was Evelin. [employer] educated the pt. on [employer] and [facility]. The pt. stated she has used [employer] for Transportation and she stated they were to sign her up with [facility]. [employer] stated she could call and see if she was registered. The pt. stated she will call [employer] and she has appointments out of [facility]. The pt. aware that [employer] maybe able to transport her out of critical access hospital. [facility] educated the pt. on the [facility] providing transportation and the pt. was aware of this and stated she sees their vans around [place]. [employer] discussed with the pt. she would have topay for transportation through [employer]. [employer] asked the pt. if she was managing financially and she stated she gets Social Security and denied any financial stress. [employer] asked the pt. about her bathingand needing more help. [employer] educated the pt. on [employer]/[facility] Agency on Aging. The pt. stated she was aware of [employer] and did not need more help. She feels they can amanage their own meals. The pt. was supportive for [employer] to mail her information on Transportation services in [facility]. [employer] provided the pt. with her name and phone number to call with any needs. 11/24/23 [employer] mailed the pt. information on Transportation Services in [facility]-[employer] [place]/[facility] Transit, [facility] Center Transportation, information on [facility] Agency on Aging and the Aging and Disability Resource Center and information on WHIRE:[facility] Information Referral Exchange. Thank You, [facility] Work Phone: 1(662) 859-964206-14-2024 Miscellaneous Notes* Telephone Encounter - Alvaro Medina LSW - 11/24/2023 11:40 AM EDT 11/24/23 [employer] called the pt. regarding [employer] visit and community resources. 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 [employer] discussed with the pt. [place] The [place]. stated she did not need more help and that her boyfriend lives with her and he assists her. [employer] asked the pt. about transportation. The pt. stated she needs transportation to the grocery store. She discussed with [employer] that her and her boyfriend took a taxi to [facility] the other day and she did not feel good and was taken to the ER and she stated she was not admitted. The pt. stated they ate at [facility]. The pt. stated that Keisha the Nurse was there yesterday and is coming back on Monday. The pt. stated there was another Nurse before Keisha and she could not think of her name. The pt. was talking with her boyfriend in the background and stated the Nusre was Evelin. [employer] educated the pt. on [employer] and [facility]. The pt. stated she has used [employer] for Transportation and she stated they were to sign her up with [facility]. [employer] stated she could call and see if she was registered. The pt. stated she will call [employer] and she has appointments out of [facility]. The pt. aware that [employer] maybe able to transport her out of critical access hospital. [facility] educated the pt. on the [employer] providing transportation and the pt. was aware of this and stated she sees their vans around [facility]. [employer] discussed with the pt. she would have topay for transportation through [employer]. [employer] asked the pt. if she was managing financially and she stated she gets Social Security and denied any financial stress. [employer] asked the pt. about her bathingand needing more help. [employer] educated the pt. on [employer]/[facility] Agency on Aging. The pt. stated she was aware of [employer] and did not need more help. She feels they can amanage their own meals. The pt. was supportive for [employer] to mail her information on Transportation services in [facility]. [employer] provided the pt. with her name and phone number to call with any needs. 11/24/23 [employer] mailed the pt. information on Transportation Services in [facility]-[employer] [place]- [facility], [facility] Center Transportation, information on [facility] Agency on Aging and the Aging and Disability Resource Center and information on WHIRE:[facility] Information Referral Exchange. Thank You, documented in this encounterCleveland Clinic [facility] Hospital06-14-2024 Miscellaneous Notes* HH CARE COORDINATION - Alvaro Median LSW - 11/24/2023 10:15 AM EDT 11/24/23 10:24 AM - 10:40 AM [employer] called the pt. regarding [employer] visit and community resources. 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 [employer] discussed with the pt. regarding needing more help in the home. The pt. stated she did not need more help and that her boyfriend lives with her and he assists her. [employer] asked the pt. about transportation. The pt. stated she needs transport ation to the grocery store. She discussed with [employer] that her and her boyfriend took a taxi to [facility] the other day and she did not feel good and was taken to the ER and she stated she was not admitted. The pt. stated they ate at [facility]. The pt. stated that Keisha the Nurse was there yesterday and is coming back on Monday. The pt. stated there was another Nurse before Keisha and she could not think of her name. The pt. was talking with her boyfriend in the background and stated the Nusre was Evelin. [employer] educated the pt. on [employer] and [facility]. The pt. stated she has used [employer] for Transportation and she stated they were to sign her up with [facility] it. [employer] stated she could call and see if she was registered. The pt. stated she will call [employer] and she has appointments out of [facility]. The pt. aware that [employer] maybe ableto transport her out of critical access hospital. [facility] educated the pt. on the [facility] providing transportation and the pt. was aware of this and stated she sees their vans around [facility]. [employer] discussed with the pt. she would have to pay for transportation through [employer]. [employer] asked the pt. if she was managing financially and she stated she gets Social Security and denied any financial stress. [employer] asked the pt. about her bathing and needing more help. [employer] educated the pt. on [employer]/[facility] Agency on Aging. The pt. stated she was aware of [employer] and did not need more help. She feels they can amanage their own meals. The pt. was supportive for [employer] to mail her information on Transportation services in [facility]. [employer] provided the pt. with her name and phone number to call with any needs. 11/24/23 [employer] mailed the pt. information on Transportation Services in [facility]-[employer] [place]- [facility], [employer] Center Transportation, information on [facility] Agency on Aging and the Aging and Disability Resource Center and information on WHIRE:[facility] Information Referral Exchange. 11/24/[address] [employer] [address] Carmen Johnson - [employer] phone call with the pt. and that [employer] mailed the pt.information on Transportation Services in [facility]- [employer] [place]- [facility], [facility], information on [facility] Agency on Aging and the Aging and Disability Resource Center and information on WHIRE:[employer] [facility] Information Referral Exchange. documented in this encounterCleveland Clinic [facility] Hospital06-14-2024 Patient's home Note* HH CARE COORDINATION - Alvaro Medina LSW - 11/24/2023 10:15 AM EDT 11/24/23 10:24 AM - 10:40 AM [employer] called the pt. regarding [employer] visit and community resources. 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 [employer] discussed with the pt. regarding needing more help in the home. The pt. stated she did not need more help and that her boyfriend lives with her and he assists her. [employer] asked the pt. about transportation. The pt. stated she needs transport ation to the grocery store. She discussed with [employer] that her and her boyfriend took a taxi to [facility] the other day and she did not feel good and was taken to the ER and she stated she was not admitted. The pt. stated they ate at [facility]. The pt. stated that Keisha the Nurse was there yesterday and is coming back on Monday. The pt. stated there was another Nurse before Keisha and she could not think of her name. The pt. was talking with her boyfriend in the background and stated the Nusre was Evelin. [employer] educated the pt. on [employer] and [facility]. The pt. stated she has used [employer] for Transportation and she stated they were to sign her up with [facility] it. [employer] stated she could call and see if she was registered. The pt. stated she will call [employer] and she has appointments out of [facility]. The pt. aware that [facility] [employer] maybe ableto transport her out of critical access hospital. [facility] educated the pt. on the [employer] [facility] providing transportation and the pt. was aware of this and stated she sees their vans around [facility]. [employer] discussed with the pt. she would have to pay for transportation through [place]. [employer] asked the pt. if she was managing financially and she stated she gets Social Security and denied any financial stress. [employer] asked the pt. about her bathing and needing more help. [employer] educated the pt. on [employer]/[facility] Agency on Aging. The pt. stated she was aware of [employer] and did not need more help. She feels they can amanage their own meals. The pt. was supportive for [employer] to mail her information on Transportation services in [facility]. [employer] provided the pt. with her name and phone number to call with any needs. 11/24/23 [employer] mailed the pt. information on Transportation Services in [facility] Transit, [facility] Transportation, information on [facility] on [facility] and the Aging and Disability Resource [place] and information on WHIRE:[employer] [facility] Information Referral Exchange. 11/24/[address] [employer] [address] Carmen Johnson - [facility] phone call with the pt. and that [employer] mailed the pt.information on Transportation Services in [facility] Transit, [facility] Transportation, information on [facility] on [facility] and the Aging and Disability Resource Center and information on WHIRE:[employer] [facility] Information Referral Exchange. [facility] Work Phone: 1(754) 853-657106-13-2024 Miscellaneous Notes* HH CARE COORDINATION - Alvaro Medina LSW - 11/23/2023 1:30 PM EDT 11/23/23 1:41 PM - 1:42 PM [employer] called the pt. and her voicemail came on. 11/22/22 1:46 PM - 1:47 PM [employer] called the pt. again and voicemail came on. documented in this encounterCleveland Clinic [facility] Hospital06-13-2024 Patient's home Note* CARE COORDINATION - Alvaro Medina LSW - 11/23/2023 1:30 PM EDT 11/23/23 1:41 PM - 1:42 PM [employer] called the pt. and her voicemail came on. 11/22/22 1:46 PM - 1:47 PM [employer] called the pt. again and voicemail came on. [facility] Work Phone: 1(767) 924-982006-13-2024 Miscellaneous Notes* SN Routine - Keisha Westbrook RN - 11/23/2023 12:16 PM EDT SITUATION: Senior Care routine visit completed today. son also present [...] good. She reports that she was at [facility] at the time and squad was called. [...] CP check and instructions documented in this encounterCleveland Clinic [facility] Hospital06-13-2024 Patient's home Note* SN Routine - Keisha Westbrook RN - 11/23/2023 12:16 PM EDT SITUATION: Senior Care routine visit completed today. son also present [...] good. She reports that she was at [facility] at the time and squad was called. [...] on (be specific): CP check and instructions [facility] Work Phone: 1(880) 487-601606-13-2024 Telephone encounter Note* Telephone Encounter - Evelin Martinez RN - 11/23/2023 8:13 AM EDT SN Hesham sent this message to on November 19: Patient began [facility] services today s/p pacemaker. Patient's BP noted [...] with PCP. Thank you, Evelin Martinez RN [facility] Work Phone: 1(323) 906-670106-13-2024 Miscellaneous Notes* Telephone Encounter - Evelin Martinez [...] you, Evelin Martinez RN documented in this encounterCleveland Clinic [facility]mount Hospital06-12-2024 NoteHNO ID: [id number] Author: YU MANNING RN Service: ? Author Type: Registered Nurse Type: Progress Notes Filed: 11/22/2023 14:22 Note Text: TRANSITION CARE MANAGEMENT (TCM) FOLLOW-UP NOTE Provider Action/FYI Patient did not answer [employer] texts Called patient, no answer, left message Discharge Network Status: In-Network Discharge Summary: Discharged from [facility] on 11/15/2023 Admitted for pacemaker insertion Yu Manning RN November 22, 2023 2:21 [facility]06-12-2024 History of Present illness Narrative* Yu Manning RN - 11/22/2023 2:21 PM EDT TRANSITION CARE MANAGEMENT (TCM) FOLLOW-UP NOTE Provider Action/FYI Patient did not answer [employer] texts Called patient, no answer, left message Discharge Network Status: In-Network Discharge Summary: Discharged from [facility] on 11/15/2023 Admitted for pacemaker insertion Yu Manning RN November 22, 2023 2:21 PM documented in this encounterCleveland Clinic [facility] Hospital06-12-2024 Miscellaneous Notes* HH CARE COORDINATION - Alvaro Medina LSW - 11/22/2023 9:15 AM EDT 11/22/23 9:26 AM - 9:28 AM [employer] called the pt. and her voicemail came on. [employer] left a message that MASSIELWwas calling regarding community resources and transportation. [employer] left her name and phone number for the pt. to call [facility] back. documented in this encounterCleveland Clinic [facility] Hospital06-12-2024 Patient's home Note* HH CARE COORDINATION - Alvaro Medina LSW - 11/22/2023 9:15 AM EDT 11/22/23 9:26 AM - 9:28 AM [employer] called the pt. and her voicemail came on. [facility] left a message that LSWwas calling regarding community resources and transportation. [facility] left her name and phone number for the pt. to call [employer] back. [facility] Work Phone: [phone]) 764-678806-12-2024 NotePatient Outreach ([facility]) ANGELICA TORIBIO ([id number]) 1950 F Date Time Provider Department 11/22/23 YU MANNING [facility] During your visit today, we recorded the following information about you: Yu Manning RN 11/22/2023 2:22 PM Signed TRANSITION CARE MANAGEMENT (TCM) FOLLOW-UP NOTE Provider Action/FYI Patient did not answer [employer] texts Called patient, no answer, left message Discharge Network Status: In-Network Discharge Summary: Discharged from [facility] on 11/15/2023 Admitted for pacemaker insertion [...] 11/15/2023 Encounter Status:Closed by YU MANNING on 11/22/23[facility] 11-21-2023 Miscellaneous Notes* CARE COORDINATION - Alvaro Medina LSW - 11/21/2023 9:45 AM EDT 11/21/23 9:51 AM - 9:53 AM [facility] [employer] called [facility] and left a message for Erasto regarding if she received a referral for the pt. 11/21/23 9:53 AM - 9:54 AM [employer] called the pt. and her voicemail came on but mailbiox was full and unable to leave a message. 11/21/23 9:57 AM - 10:00 AM [employer] received a phone call back from Erasto with [facility] regarding the pt. LM asked Erasto if she received a referral for the pt. while the pt. was in [facility] and she stated she did not receive a referral on the pt. documented in this encounterCleveland Clinic [facility] Hospital06-11-2024 Patient's home Note* CARE COORDINATION - Alvaro Medina LSW - 11/21/2023 9:45 AM EDT 11/21/23 9:51 AM - 9:53 AM [facility] called [facility] and left a message for Erasto regarding if she received a referral for the pt. 11/21/23 9:53 AM - 9:54 AM [employer] called the pt. and her voicemail came on but [employer] was full and unable to leave a message. 11/21/23 9:57 AM - 10:00 AM LM received a phone call back from Erasto with [facility] regarding the pt. [facility] [employer] asked Erasto if she received a referral for the pt. while the pt. was in [facility] and she stated she did not receive a referral on the pt. [facility] Work Phone: 1(934) 425-217006-10-2024 Telephone encounter Note* Telephone Encounter - Evelin Martinez RN - 11/20/2023 5:41 PM EDT Patient began [facility] services today s/p pacemaker. Patient's BP noted [...] home tomorrow. Thank you, Evelin Martinez RN [facility] Work Phone: [phone]) 933-297106-10-2024 Miscellaneous Notes* Telephone Encounter - Evelin Martinez RN - 11/20/2023 5:41 PM EDT [facility] began [facility] services today s/p pacemaker. Patient's BP noted [...] you, Evelin Martinez RN documented in this encounterCleveland Clinic [facility] Hospital06-10-2024 NoteHNO ID: [id number] Author: NEELAM ELIZABETH MD Service: ? Author Type: Physician Type: Progress Notes Filed: 11/20/2023 16:37 Note Text: Virtualist Progress Note Triage Call I have communicated my name and active licensure. The patient's identity and physical location were verified at the time of this visit. Either the patient or their legal sales representative public utilities has been informed of the risks and benefits of -- and alternatives to -- treatment through a remote evaluation and consents to proceed with the evaluation remotely. Triage source: [facility] provider escalation Was patient [...] in as Primary Virtualist, Secondary Virtualist, or [facility] Telehealth provider: Primary SIGNATURE: Neelam Elizabeth MD PATIENT NAME: Angelica Toribio DATE: November 20, [facility] [facility]06-10-[facility] History of Present illness Narrative* Neelam Elizabeth MD - 11/20/2023 4:34 PM EDT Virtualist Progress Note Triage Call I have communicated my name and active licensure. The patient's identity and physical location wereverified at the time of this visit. Either the patient or their legal sales representative public utilities has been informed of the risks and benefits of -- and alternatives to -- treatment through a remote evaluation andconsents to proceed with the evaluation remotely. Triage source: [facility] provider escalation Was patient [...] in as Primary Virtualist, Secondary Virtualist, or [facility] Telehealth provider: Primary SIGNATURE: Neelam Elizabeth MD PATIENT NAME: Angelica Toribio DATE: November 20, 2023 documented in this encounterCleveland Clinic [facility]06-10-2024 Miscellaneous Notes* SN SOC - Evelin Martinez RN - 11/20/2023 2:32 PM EDT SITUATION: [facility] SOC visit completed today. friend also present [...] know where cuff is. SN set up [employer] Communicator for patient and reviewed operating instructions [...] utilize communicator despite reviewing directions multiple times. MASTER POLICE DETECTIVE referral placed for transportation and resources. SN [...] c/p and wound assessment documented in this encounterC[facility] Patient's home Note* SN SOC - Evelin Martinez RN - 11/20/2023 2:32 PM EDT SITUATION: Senior Care SOC visit completed today. friend also present [...] know where cuff is. SN set up [employer] Communicator for patient and reviewed operating instructions [...] utilize communicator despite reviewing directions multiple times. MASTER POLICE DETECTIVE referral placed for transportation and resources. SN [...] on (be specific): c/p and wound assessment [facility] Work Phone: 1(593) 344-293106-10-2024 Telephone encounter Note* Telephone Encounter - Shanna [...] Shanna Baptiste November 20, 2023 11:13 AM [facility]06-10-2024 Miscellaneous Notes* Telephone Encounter - Shanna Baptiste [...] 20, 2023 11:13 AM documented in this encounterCleveland Clinic [facility]06-09-2024 Telephone encounter Note * Telephone Encounter - Evelin Martinez RN - 11/19/2023 3:50 PM EDT Called patient to confirm and schedule start of care visit. No answer. No voicemail available. [facility] Work Phone: 1(570) 605-495806-09-2024 Miscellaneous Notes* Telephone Encounter - Evelin Martinez RN - 11/19/2023 3:50 PM EDT Called patient to confirm and schedule start of care visit. No answer. No voicemail available. documented in this encounterCleveland Clinic [facility]06-07-2024 Telephone encounter Note * Telephone Encounter - Ximena Devlin LPN - 11/17/2023 2:23 PM EDT Carmen Johnson MD Patient declined initially planned visit on 11/15/23. [facility] is planning on initiating services on 11/20/23. Please let us know if you are agreeable to this date. If we do not hear back, we will continue withthis planned date. Thank you, Ximena Devlin LPN Central Admissions Intake Nurse [facility] Work Phone: [phone]) [phone] Miscellaneous Notes* Telephone Encounter - Ximena Devlin LPN - 11/17/2023 2:23 PM EDT Carmen Johnson MD Patient declined initially planned visit on 11/15/23. [facility] is planning on initiating services on 11/20/23. Please let us know if you are agreeable to this date. If we do not hear back, we will continue withthis planned date. Thank you, Ximena Devlin LPN Central Admissions Intake Nurse documented in this encounterC[facility]06-07-2024 Telephone encounter Note * Telephone Encounter - Misty Stover RN - 11/17/2023 2:15 PM EDT Patient was to be seen today for SOC. Upon calling to set up visit pt request SOC for Monday. SOC to be changed to Monday11/20/23. [facility] Work Phone: [phone] Miscellaneous Notes* Telephone Encounter - Misty Stover RN - 11/17/2023 2:15 PM EDT Patient was to be seen today for SOC. Upon calling to set up visit pt request SOC for Monday. SOC to be changed to Monday11/20/23. documented in this encounterC[facility]06-07-2024 Telephone encounter Note * Telephone Encounter - Flora Francisco RN - 11/17/2023 2:00 PM EDT Patient declined home health start of care (SOC) for 11/17/23. Patient requests SOC reschedule on 11/20/23 [facility] Work Phone: [phone] Miscellaneous Notes* Telephone Encounter - Flora Francisco RN - 11/17/2023 2:00 PM EDT Patient declined home health start of care (SOC) for 11/17/23. Patient requests SOC reschedule on 11/20/23 documented in this encounterCleveland Clinic [facility]06-07-2024 History of Present illness Narrative* Yu Manning RN - 11/17/2023 1:23 PM EDT TRANSITION CARE MANAGEMENT (TCM) FOLLOW-UP NOTE Provider Action/FYI Patient did not answer Fabric texts Called patient, no answer, mailbox full Discharge Network Status: In-Network Discharge Summary: Discharged from [facility] on 11/15/2023 Admitted for pacemaker insertion Yu Manning RN November 17, 2023 1:23 PM documented in this encounterCleveland Clinic [facility]06-07-2024 NoteHNO ID: [id number] Author: YU MANNING RN Service: ? Author Type: Registered Nurse Type: Progress Notes Filed: 11/17/2023 13:25 Note Text: TRANSITION CARE MANAGEMENT (TCM) FOLLOW-UP NOTE Provider Action/FYJonas Patient did not answer Fabric texts Called patient, no answer, mailbox full Discharge Network Status: In-Network Discharge Summary: Discharged from [facility] on 11/15/2023 Admitted for pacemaker insertion Yu Manning RN November 17, 2023 1:23 [facility]06-07-2024 NotePatient Outreach ([facility]) ANGELICA TORIBIO ([id number]) 1950 F Date Time Provider Department 11/17/23 YU MANNING During your visit today, we recorded the following information about you: Yu Manning RN 11/17/2023 1:25 PM Signed TRANSITION CARE MANAGEMENT (TCM) FOLLOW-UP NOTE Provider Action/FYI Patient did not answer Fabric texts Called patient, no answer, mailbox full Discharge Network Status: In-Network Discharge Summary: Discharged from [facility] on 11/15/2023 Admitted for pacemaker insertion [...] 11/15/2023 Encounter Status:Closed by YU MANNING on 11/17/23[facility] 11-16-2023 Telephone encounter Note* Telephone Encounter - Natacha Leos (Rn), RN - 11/16/2023 8:44 PM EDT Patient calling for health information: medication changes from hospital Reviewed current medication list with the patient. Advised patient to call PCP during open hours for any further questions Patient denies any new or worsening symptoms of which a provider is not aware:Yes . [facility]06-06-2024 Miscellaneous Notes* Telephone Encounter - Natacha Leos), RN - 11/16/2023 8:44 PM EDT Patient calling for health information: medication changes from hospital Reviewed current medication list with the patient. Advised patient to call PCP during open hours for any further questions Patient denies any new or worsening symptoms of which a provider is not aware:Yes . documented in this encounterCleveland Clinic [facility]06-06-2024 Telephone encounter Note * Telephone Encounter - Navarro Cody - 11/16/2023 10:33 AM EDT Called patient to confirm and schedule start of care visit. No answer. No message left. Thanks Navarro Cody Beef Lugger [facility]06-06-2024 Miscellaneous Notes* Telephone Encounter - Navarro Cody - 11/16/2023 10:33 AM EDT Called patient to confirm and schedule start of care visit. No answer. No message left. Thanks Navarro Cody Beef Lugger documented in this encounterC[facility]06-05-2024 Telephone encounter Note * Telephone Encounter - Carmen Johnson MD - 11/15/2023 3:27 PM EDT Agreeable and will sign [facility]06-05-2024 Miscellaneous Notes* Telephone Encounter - Carmen [...] care clinicians may also obtain orders from [facility] Virtualist Providers Thank you and we would be happy to answer any questions. Erna Lara LPN 11/14/2023 5:31 PM documented in this encounterCleveland Clinic [facility]06-05-2024 NoteHNO ID: [id number] Author: SHARATH PEREZ RN Service: Care Management Author Type: Registered Nurse Type: Care Mgt Progress Note Filed: 11/15/2023 14:57 Note Text: CARE MANAGEMENT DISCHARGE NOTE SERVICE DATE: November 15, 2023 SERVICE TIME: 2:55 PM Admission Date: 11/05/2023 LOS: 10 days Discharge Arrangement Discharge Arrangement: Home with Home Health Services Arranged Provider Name: [facility] Caregiver Assessment Caregiver is ready, willing and able to meet the patient's needs as recommended by the inter-professional team: No Transportation Arrangements Transportation Arrangements: Taxi Cab Handoff Communication: Additional Information: Pt D/C to home today with home care thru CC. SN visits ordered. Pt was sent home by cab. Notified [facility] that pt was D/C today and that HHC orders are in Epic. [phone] SIGNATURE: Sharath Perez RN PATIENT NAME: Angelica Marium Toribio DATE: November 15, 2023 TIME: 2:55 PM CONTACT #: [phone] Note HNO ID: [id number] Author: ALONSO العراقي RPh Service: Pharmacy Author [...] bao November 15, 2023 12:27 PM Pager: [phone] 11/15/2023 12:27 PM Medication List START taking [...] Your Medications These medications were sent to [facility] [address] [place] [id number] [place] [phone] [place] [address] amLODIPine 10 mg tablet hydrALAZINE 25 mg tabletSt. Mary'S [facility]06-05-2024 NoteHNO ID: [id number] Author: SHARATH PEREZ RN Service: Care Management [...] 15, 2023 TIME: 2:54 PM PAGER/CONTACT #: [phone] 11-15-2023 NoteHNO ID: [id number] Author: SHARATH PEREZ RN Service: Care Management Author Type: Registered Nurse Type: Care Mgt Progress Note Filed: 11/15/2023 11:05 Note Text: CARE MANAGEMENT PROGRESS NOTE SERVICE DATE: 11/15/2023 SERVICE TIME: 11:02 AM LOS: 10 days Anticipate D/C to home today. [facility] will follow for pt for retirement needs. She is agreeable, now to [facility] . [facility] orders are in Epic. Transport home may need to be set up, ok to call cab for pt. SIGNATURE: Sharath Perez RN PATIENT NAME: Angelica Toribio DATE: November 15, 2023 TIME: 10:59 AM PAGER/CONTACT #: [phone] 11-15-2023 Telephone encounter Note* Telephone Encounter - Israel Vidal - 11/15/2023 9:12 AM EDT Date/Time: 11/15/2023 9:14 AM Spoke with Agnelica @ phone #: [phone] - Preferred # for contact: [phone] Have you received help from a home care company in the last 60 days? no Are you agreeable to [facility] services? yes What address will we be seeing you at? [address] [place] [address] Do you have any upcoming appointments or things we need to schedule around? no Do you have a teachable CG or can you manage your care independently? [facility] Work Phone: [phone] Miscellaneous Notes* Telephone Encounter - Israel Vidal - 11/15/2023 9:12 AM EDT Date/Time: 11/15/2023 9:14 AM Spoke with Angelica @ phone #: [phone] - Preferred # for contact: [phone] Have you received help from a home care company in the last 60 days? no Are you agreeable to [facility] services? yes What address will we be seeing you at? [address] [facility] [address] Do you have any upcoming appointments or things we need to schedule around? no Do you have a teachable CG or can you manage your care independently? documented in this encounterC[facility]06-04-2024 Telephone encounter Note * Telephone Encounter - Erna Lara LPN [...] care clinicians may also obtain orders from [facility] Virtualist Providers Thank you and we would be happy to answer any questions. Erna Lara LPN 11/14/2023 5:31 PM [facility] Work Phone: 1([phone]) 512-289106-04-2024 NoteHNO ID: [id number] Author: SHARATH PEREZ RN Service: Care Management Author Type: Registered Nurse Type: Care Mgt Progress Note Filed: 11/14/2023 16:55 Note Text: CARE MANAGEMENT PROGRESS NOTE SERVICE DATE: 11/14/2023 SERVICE TIME: 4:53 PM LOS: 9 days Per message from attending. Pt is agreeable to home care for SN. Referral placed to [facility]. Waiting on response , if able to accept. HHC orders are in Epic. SIGNATURE: Sharath Perez RN PATIENT NAME: Angelica Toribio DATE: November 14, 2023 TIME: 4:53 PM PAGER/CONTACT #: [phone] 11-14-2023 NoteHNO ID: [id number] Author: CORWIN ORELLANA DO Service: Hospital Medicine Author Type: Physician Type: Progress Notes Filed: 11/14/2023 16:23 Note Text: DEPARTMENT OF HOSPITAL MEDICINE PROGRESS NOTE SERVICE DATE: 11/14/2023 SERVICE TIME: 3:54 PM Hospital Medicine/Primary Attending: Corwin Orellana DO NIGHT AND WEEKEND COVERAGE: [place] COVERAGE: After 7pm, please call cross cover pager #[phone] Subjective INTERVAL HPI: Patient calm but again [...] now. 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 She is also now agreeable to retirement Current Facility-Administered Medications Medication Dose Route Frequency [...] Eyes: No scleral ic (more content not included)...[facility] 11-13-2023 NoteHNO ID: [id number] Author: CORWIN ORELLANA DO Service: Hospital Medicine Author Type: Physician Type: Progress Notes Filed: 11/13/2023 17:58 Note Text: DEPARTMENT OF HOSPITAL MEDICINE PROGRESS NOTE SERVICE DATE: 11/13/2023 SERVICE TIME: 5:46 PM Hospital Medicine/Primary Attending: Corwin Orellana DO NIGHT AND WEEKEND COVERAGE: [place] COVERAGE: After 7pm, please call cross cover pager #[phone] Subjective INTERVAL HPI: Patient calm but again [...] now. She also is showing signs of snf memory and is alert and oriented but [...] endorsed dyspnea on exer (more content not included)...[facility]06-03-2024 NoteHNO ID: [id number] Author: JERSEY GAO, DEVONTE Service: Electrophysiology Author [...] this information when she gets home. Ximena [facility]06-03-2024 NoteHNO ID: [id number] Author: SHARATH PEREZ, RN Service: Care Management [...] 13, 2023 TIME: 3:59 PM PAGER/CONTACT #: [phone] 11-13-2023 NoteHNO ID: [id number] Author: SHARATH PEREZ RN Service: Care Management [...] 13, 2023 TIME: 4:25 PM PAGER/CONTACT #: [phone] 11-12-2023 NoteHNO ID: [id number] Author: CORWIN ORELLANA DO Service: Hospital Medicine Author Type: Physician Type: Progress Notes Filed: 11/13/2023 07:47 Note Text: DEPARTMENT OF HOSPITAL MEDICINE PROGRESS NOTE SERVICE DATE: 11/12/2023 SERVICE TIME: 3:01 PM Hospital Medicine/Primary Attending: Corwin Orellana DO NIGHT AND WEEKEND COVERAGE: [place] COVERAGE: After 7pm, please call cross cover pager #[phone] Subjective INTERVAL HPI: Patient with pain around [...] 11/07 with Suggestion of (more content not included)...[facility]05-29-2024 Telephone encounter Note* Telephone Encounter - VamsiHaven ventura - 11/08/2023 1:47 PM EDT Follow up(s) scheduled. Patient to be notified upon discharge. Haven Sarmiento [facility]05-29-2024 Miscellaneous Notes* Telephone Encounter - VamsilorenzoHvaen - 11/08/2023 1:47 PM EDT Follow up(s) [...] is still currently hospitalized. Thank you. Ximena Maceil APRN.JOURNEYMAN CARPENTER documented in this encounterCleveland Clinic [facility]05-29-2024 Telephone encounter Note * Telephone Encounter - Ximena Maciel APRN.CNP - 11/08/2023 12:45 PM EDT Please arrange wound check in 1 week (phone call). Patient underwent implantation of dual-chamber pacemaker with Dr. Orozco 11/07/2023. She will then need annual follow-up with Dr. Orozco or RODNEY. She is still currently hospitalized. Thank you. Ximena Maciel APRN.JOURNEYMAN CARPENTER [facility] Work Phone: 1(556) 589-917404-22-2024 Telephone encounter Note* Telephone Encounter - Lindsay [...] Please advise. Thank you. Lindsay Paniagua RN. [facility]04-22-2024 Miscellaneous Notes* Telephone Encounter - Lindsay [...] you. Lindsay Paniagua RN. documented in this encounterC[facility] Clinic [facility]04-18-2024 Miscellaneous Notes* Telephone Encounter - Marita [...] provider. Mindi Kitchen LPN documented in this encounterCleveland Clinic [facility]08-15-2023 Miscellaneous Notes* Telephone Encounter - Jennifer [...] and advise. Jersey Toribio documented in this encounterCleveland Clinic [facility]06-23-2023 Miscellaneous Notes* Telephone Encounter - Dmitri Feliz LPN - 12/02/2022 3:05 PM EDT Patient phones requesting refills as follows: Requested Prescriptions Pending Prescriptions Disp Refills metoprolol tartrate, short acting, (LOPRESSOR) 50 mg tablet 180 tablet 3 Sig: Take 1 tablet by mouth twice daily. ISMAEL 10/14/22 NOV 03/20/23 Please review and advise. Dmitri Feliz LPN documented in this encounterCleveland Clinic [facility]05-13-2023 Miscellaneous Notes* Telephone Encounter - BRANDON [...] and advise. BRANDON Cartwright documented in this encounterCleveland Clinic [facility]05-05-2023 History of Present illness Narrative* Carmen [...] see well at night when driving.Went to [place] for evaluation. Told needs to go every 4 months. Has been going to eye doctor and they have been managing issues with [facility]. Getting shots for eyes but recently did not need shots. 11 weeks before next appointment with retinal specialist. Followingwith Dr. Mobley for routine check ups. Got form from [facility] again. Driving better now. Needs to avoid night driving though. No signs of recurrence of SBO. Reviewed had laparoscopy with AKANKSHA. Healed well from incisions. PAST MEDICAL HISTORY Diagnosis Date Anxiety state, unspecified Displacement of lumbar intervertebral disc without myelopathy DM type 2 (diabetes mellitus, type 2) ([facility]) Edema Other malaise and fatigue Unspecified essential [...] BMV completed and will be scanned into [employer]. Will get issues regarding vision for BMV addressed by [facility] provider(s) 2. Exudative age-related macular degeneration of [...] which included preparing to see the patient, zoza-op-zimy patient care, completing clinical documentation, performing a medically appropriate examination, counseling and educating the patient/family/caregiver, and ordering medications, tests,or procedures. Carmen Johnson MD documented in this encounterCleveland Clinic [facility] Hospital04-14-2023 Miscellaneous Notes* Telephone Encounter - Tami Faustin LPN - 09/23/2022 7:59 AM EDT ISMAEL 08/17/22 Next 10/14/22 * Telephone Encounter - Evelin Holly Pss - 09/22/2022 4:18 PM EDT Pharmacy verified in [facility] Patient has been identified by name [...] advise. Evelin Holly Pss documented in this encounterCleveland Clinic [facility] Hospital03-08-2023 History of Present illness Narrative* Carmen Johnson MD - 08/17/2022 10:20 AM EST This note was created using Captonter. Subjective Angelica Toribio is a 72 year old female. Patient presents with: Hospital F/U: [facility] discharge 08/11/2022 SUBJECTIVE: Angelica Toribio is [...] DM type 2 (diabetes mellitus, type 2) ([facility]) Edema Other malaise and fatigue Unspecified essential [...] content normal. Judgment: Judgment normal. Operative Report [facility] Medical Records Department [address] [place] [address] Operative Report 08/08/22 1634 MR#: [id number] Acct: [id number] Name: ANGELICA TORIBIO Rep #: [id number] : 1950 72 From: Mitch Sosa MD PCP: Dr. Carmen Johnson MD Status:ADM IN [id number] of Operation Date of Procedure: 08/08/22 Pre-Operative Diagnosis: Partial small bowel obstruction Post-Operative Diagnosis: Partial small bowel obstruction secondary to internal hernia Surgery/Procedure Performed:: 1. Diagnostic laparoscopy 2. Adhesiolysis (30 minutes) Surgeon: Mitch Sosa guide dog trainer: Lety Hobbs Type of Anesthesia: General/Supplemental Anesthesiologist: [...] of the pelvis using the laparoscopic suction delivery engineer and I once again inspected the previously herniated bowel/proximal small bowel. Identified active peristalsis within the entire segment and there appeared to be better perfusion even in the short time since its extrication. Encouraged by this observation, concluded the procedure. Pneumoperitoneum was then evacuated and the supraumbilical port site fascia was closed with #1 Vicryl in a kkddoj-yl-donfw fashion. The port sites were infiltrated with [...] Dr. Carmen Johnson MD; Dr. Mitch Sosa MD Signed Assessment and Plan Encounter [...] told needs to get eye test through [facility] where they have the specialized equipment. I spent a total of 25 minutes on the date of the service which included gyan-xo-qbfv patient care, completing clinical documentation, obtaining and/or reviewing separately obtained history, performing a medically appropriate examination, and counseling and educating the patient/family/caregiver. Carmen Johnson MD documented in this encounterCleveland Clinic [facility]03-02-2023 Discharge summary Author Heidi Lance [facility] August 11, 2022 12:54pm Note Date/Time August 11, 2022 12:0 1pm [facility] Medical Records Department [address] [place] [address] Discharge Summary 08/11/22 1158 MR#: [id number] Acct: [id number] Name: ANGELICA TORIBIO Rep #:[id number] : 1950 72 From: Heidi DIAS PA-C PCP: Dr. Carmen Johnson MD Status:AD M IN Location: [place] [address]-1 Providers Date of Admission: 08/06/22 Date of [...] (Auto) 71.5 H, Lymph % (Auto) 16.7 L,[place] % (Auto) 8.8, Eos % (Auto) 2.3, [...] 13:53 EST Reading Location ID and State: [address] [place] [address] , Service support , D/C Instructions Discharge [...] Self Care Charges/Coding Visit Charges Inpatient E&M: 31300 Disch Hosp (no charge) 08/11/22 1254 <Electronically signed by Heidi DIAS PA-C> Cosigner Signature (if applicable): CC: ANNE-MARIE Lance; Dr. Carmen Johnson MD~ Signed [facility] Work Phone: 1(855) 932-274403-02-2023 Discharge summary Author Heidi Lance [facility] August 11, 2022 11:57am Note Date/Time August 11, 2022 11:5 5am [facility] Medical Records Department [address] [place] [address] Instructions for Home/Discharge Instructions 08/11/22 1150 MR#: [id number] Acct: [id number] Name: ANGELICA TORIBIO Rep #:[id number] : [...] MD; Dr. Gage Shah MD ~ Signed [facility] Work Phone: 1(995) 462-462403-02-2023 Progress note Author [facility] August 11, 2022 11:49am Note Date/Time August 11, 2022 10:5 6am [facility] Medical Records Department [address] [place] [address] Progress Note - Surgery 08/11/22 1053 MR#: [id number] Acct: [id number] Name: ANGELICA TORIBIO Rep #:[id number] : 1950 72 From: Heidi DIAS PA-C PCP: Dr. Carmen Johnson MD Status:AD M IN Location: [place] [address] Subjective Subjective Patient is evaluating sitting comfortably [...] (Auto) 71.5 H, Lymph % (Auto) 16.7 L,[place] % (Auto) 8.8, Eos % (Auto) 2.3, [...] discharge today Charges/Coding Visit Charges Inpatient E&M: 98964 Subs Hosp L1 (no charge) 08/11/22 1149 <Electronically signed by Heidi DIAS PA-C> Cosigner Signature (if applicable): CC: ~ Signed [facility] Work Phone: 1(817) 309-955203-02-[address] Shah [facility] August 11, 2022 9:17am Note Date/Time August 11, 2022 9:17 am [facility] Medical Records Department [address] [place] [address] Progress Note - Hospitalist 08/11/22 0915 MR#: [id number] Acct: [id number] Name: ANGELICA TORIBIO Rep #:[id number] : 1950 72 From: Gage chen MD PCP: Dr. Carmen Johnson MD Status:AD M IN Location: MS3 HR040-9 Subjective Subjective Doing well, had bowel movements [...] (Auto) 71.5 H, Lymph % (Auto) 16.7 L,[place] % (Auto) 8.8, Eos % (Auto) 2.3, [...] DVT: SCDs Charges/Coding Visit Charges Inpatient E&M: 36982 Subs Hosp L2 08/11/22 0917 <Electronically signed by Gage Shah MD> Cosigner Signature (if applicable): CC: ~ Signed [facility] Work Phone: 1(944) 304-933203-01-[address] Shah [facility] August 10, 2022 2:02pm Note Date/Time August 10, 2022 2:02 pm [facility] Medical Records Department [address] [facility] [place] [address] Progress Note - Hospitalist 08/10/22 1356 MR#: [id number] Acct: [id number] Name: ANGELICA TORIBIO Rep #:[id number] : 1950 72 From: Gage chen MD PCP: Dr. Carmen Johnson MD Status:AD M IN [facility] Subjective Subjective Tolerating sips and chips but [...] % (Auto) 66.9, Lymph % (Auto) 21.3, [place] % (Auto) 9.2, Eos % (Auto) 2.0, [...] DVT: SCDs Charges/Coding Visit Charges Inpatient E&M: 29927 Subs Hosp L2 08/10/22 1402 <Electronically signed by Gage Shah MD> Cosigner Signature (if applicable): CC: ~ Signed [facility] Work Phone: 1(942) 778-262003-01-[address] Sosa [facility] August 10, 2022 10:21am Note Date/Time August 10, 2022 7:43 am [facility] Medical Records Department [address] [place] [address] Progress Note - Surgery 08/10/22 0741 MR#: [id number] Acct: [id number] Name: ANGELICA TORIBIO Rep #:[id number] : 1950 72 From: Mitch Wynn PCP: Dr. aCrmen Johnson MD Status:AD M IN Location: [facility] NT328-9 Subjective Subjective Patient seen and examined during [...] % (Auto) 66.9, Lymph % (Auto) 21.3, [place] % (Auto) 9.2, Eos % (Auto) 2.0, [...] inpatient stay Charges/Coding Visit Charges Inpatient E&M: 27659 Subs Hosp L2 08/10/22 1021 <Electronically signed by Mitch Sosa MD> Cosigner Signature (if applicable): CC: ~ Signed [facility] Work Phone: 1(190) 434-705702-28-2023 Progress note Author Heidi Lance [facility] August 09, 2022 9:48am Note Date/Time August 09, 2022 9:48am [facility] Medical Records Department [address] [place] [address] Progress Note - Surgery 08/09/22 0939 MR#: [id number] Acct: [id number] Name: ANGELICA TORIBIO Rep #:[id number] : 1950 72 From: Heidi DIAS PA-C PCP: Dr. Carmen Johnson MD Status:AD M IN Location: [place] [address] Subjective Subjective Patient is a 72 y/o [...] 87.4 H, Lymph % (Auto) 5.5 L, [place] % (Auto) 6.6, Eos % (Auto) 0.0, [...] discharge planning Charges/Coding Visit Charges Inpatient E&M: 71279 Subs Hosp L1 (post-op) 08/09/22 0948 <Electronically signed by Heidi DIAS PA-C> Cosigner Signature (if applicable): CC: ~ Signed [facility] Work Phone: 1(524) 520-915802-27-2023 [facility] Sosa [facility] August 08, 2022 10:31am Note Date/Time August 08, 2022 8:55[facility] Medical Records Department [address] [facility] [place] [address] Progress Note - Surgery 08/08/22 0855 MR#: [id number] Acct: [id number] Name: ANGELICA TORIBIO Rep #:[id number] : 1950 72 From: Mitch Wynn PCP: Dr. Carmen Johnson MD Status:AD M IN Location: [place] [address] Subjective Subjective Patient seen and examined on [...] 72.2 H, Lymph % (Auto) 16.4 L, [place] % (Auto) 9.6, Eos % (Auto) 1.3, [...] inpatient stay Charges/Coding Visit Charges Inpatient E&M: 81354 Subs Hosp L2 08/08/22 1031 <Electronically signed by Mitch Sosa MD> Cosigner Signature (if applicable): CC: ~ Signed [facility] Work Phone: 1(206) 486-372702-26-[address] Sosa [facility] August 07, 2022 12:41pm Note Date/Time August 07, 2022 8:26am [facility] Medical Records Department [address] [place] [address] Progress Note - Surgery 08/07/22825 MR#: [id number] Acct: [id number] Name: ANGELICA TORIBIO Rep #:[id number] : 1950 72 From: Mitch Wynn PCP: Dr. Carmen Johnson MD Status:AD M IN Location: [place] [address] Subjective Subjective Patient was seen and evaluated [...] 80.8 H, Lymph % (Auto) 10.9 L, [place] % (Auto) 7.2, Eos % (Auto) 0.4, [...] inpatient stay Charges/Coding Visit Charges Inpatient E&M: 60527 Subs Hosp L2 08/07/22 1241 <Electronically signed by Mitch Sosa MD> Cosigner Signature (if applicable): CC: ~ Signed [facility] Work Phone: 1(923) 923-505202-26-[address] Rincon [facility] August 07, 2022 12:05pm Note Date/Time August 07, 2022 7:27am [facility] Medical Records Department [address] [place] [address] Progress Note - Hospitalist 08/07/22723 MR#: [id number] Acct: [id number] Name: ANGELICA TORIBIO Rep #:[id number] : 1950 72 From: Polo Rincon DO PCP: Dr. Carmen Johnson MD Status:AD M IN [facility] Reason for Visit Reason for Visit: Diagnoses [...] 80.8 H, Lymph % (Auto) 10.9 L, [place] % (Auto) 7.2, Eos % (Auto) 0.4, [...] 1 discussions occurred regarding healthcare power of [employer]erry [employer]. Will need close follow-up and assessment for [...] DNR-CC status. Charges/Coding Visit Charges Inpatient E&M: 75893 Subs Hosp L2 08/07/22 1205 <Electronically signed by Polo Rincon DO> Cosigner Signature (if applicable): CC: ~ Signed [facility] Work Phone: 1(539) 896-379102-25-2023 History and physical note Author Dr. Sosa [facility] August 06, 2022 9:37am Note Date/Time August 06, 2022 7:05am [facility] Medical Records Department [address] [place] [address] History & Physical Exam 08/06/22 0704 MR#: [id number] Acct: [id number] Name: ANGELICA TORIBIO Rep #:[id number] : 1950 72 From: Mitch Wynn PCP: Dr. Carmen Johnson MD Status:AD M IN Location: [facility] IK712-3 HPI - General General Date of Admission: 08/06/22 Chief Complaint: Acute onset abdominal pain HPI Narrative ANGELICA TORIBIO, is a 72 F who presents to [facility] with complaints of 3 hours of [...] total abdominal hysterectomy performed 20+ years ago. [facility] Medical History Cardiac murmur Carotid stenosis, bilateral [...] % (Auto) 56.9, Lymph % (Auto) 30.5, [place] % (Auto) 9.4, Eos % (Auto) 2.5, [...] Johnson MD; Dr. Mitch Sosa MD~ Signed [facility] Work Phone: 1([phone]) 273-216302-25-[address] Isidro [facility] August 06, 2022 6:12am Note Date/Time August 06, 2022 5:47am [facility] Medical Records Department [address] [place] [address] Consultation - Hospitalist 08/06/22 0547 MR#: [id number] Acct: [id number] Name: ANGELICA TORIBIO Rep #:[id number] : 1950 72 From: Susan Isidro MD PCP: Dr. Carmen Johnson MD Status:AD M IN Location: [facility] SA578-9 Assessment & Plan Assessment/Plan (1) Complete small bowel obstruction: PLAN: Plan The patient is a 72 y/o F w/ PMHx: Diabetes mellitus type II, HTN, HLD, GERD, Carotid stenosis BL who presents to the [facility] ED on 08/06/22 with history of [...] 1 discussions occurred regarding healthcare power of [employer]erry [employer]. Will need close follow-up and assessment for [...] Carotid stenosis BL who presents to the [facility] ED on 08/06/22 with history of [...] consultation to have service for medical management. [facility] Medical History Cardiac murmur Carotid stenosis, bilateral [...] % (Auto) 56.9, Lymph % (Auto) 30.5, [place] % (Auto) 9.4, Eos % (Auto) 2.5, [...] Charges/Coding Visit Charges Office Visits / Consults: 60731 IP Consult L4 Procedures Hospitalists Procedures: 71661 Advncd Care Plan 30 Min 08/06/22 0612 <Electronically signed by Susan Isidro MD> Cosigner Signature (if applicable): CC: Dr. Carmen Johnson MD~ Signed [facility] Work Phone: 1(577) 988-480002-25-[address] Dent [facility] August 06, 2022 6:07am Note Date/Time August 06, 2022 3:57am [facility] Medical Records Department [address] [place] [address] Emergency Department Summary 08/06/22 MR#: [id number] Acct: [id number] Name: ANGELICA TORIBIO Rep #:[id number] : 1950 72 From: Ezequiel Dent MD PCP: Dr. Carmen Johnson MD Status:AD M IN [facility] HPI HPI - GI History of Present [...] Prior similar symptoms: No Recent [facility] Medical History Cardiac murmur Carotid stenosis, bilateral [...] MDM Narrative Medical decision making narrative: She [id number] with abdominal pain is reproducible. Differential would [...] % (Auto) 56.9 Lymph % (Auto) 30.5 [place] % (Auto) 9.4 Eos % (Auto) 2.5 [...] small bowel obstruction Disposition Disposition: Acute Care [facility] What to do if you have Problems For any increased pain, shortness of breath, bleeding, nausea or vomiting, chestpain, or any unexpected problems, contact your Primary Care Provider. Call [facility] ([phone]) or report to the closest Emergency Room. Call 911 if necessary. 08/06/22 0607 <Electronically signed by Ezequiel Dent MD> Cosigner Signature (if applicable): CC: Dr. Carmen Johnson MD ~ Signed [facility] Work Phone: 1(386) 652-739002-25-[address] Dent [facility] August 06, 2022 6:07am Note Date/Time August 06, 2022 3:57am [facility] Medical Records Department [address] [facility] [place] [address] Emergency Department Summary 08/06/22 MR#: [id number] Acct: [id number] Name: ANGELICA TORIBIO Rep #:[id number] : 1950 72 From: Ezequiel Dent MD PCP: Dr. Carmen Johnson MD Status:AD M IN Location: [place] [address] HPI HPI - GI History of Present [...] MDM Narrative Medical decision making narrative: She [id number] with abdominal pain is reproducible. Differential would [...] % (Auto) 56.9 Lymph % (Auto) 30.5 [place] % (Auto) 9.4 Eos % (Auto) 2.5 [...] bowel obstruction Disposition Disposition: Acute Care [facility] What to do if you have Problems For any increased pain, shortness of breath, bleeding, nausea or vomiting, chestpain, or any unexpected problems, contact your Primary Care Provider. Call [facility] ([phone]) or report to the closest Emergency Room. Call 911 if necessary. 08/06/22 0607 <Electronically signed by Ezequiel Dent MD> Cosigner Signature (if applicable): CC: Dr. Carmen Johnson MD ~ Signed [facility] Work Phone: 1(441) 159-915401-26-2023 Miscellaneous Notes* Telephone Encounter - Obdulia Mathis [...] urinates. Fariba Gannon, RN documented [facility] History of Present illness Narrative* Betty [...] 06, 2022 10:54 AM documented in this encounterC[facility]01-25-2023 Evaluation note* Diagnosis Foul smelling urine- Primary Other nonspecific finding on examination of urine Type 2 diabetes mellitus with stage 3a chronic kidney disease, without long-term current use of insulin (HCC) Vitamin D deficiency Unspecified vitamin D deficiency Leg cramping Cramp of limb documented in this encounter [facility]01-21-2023 Miscellaneous Notes* Telephone Encounter - Carmen [...] [facility] Lindsay Paniagua RN * Telephone Encounter - Mindi Kitchen LPN - 07/01/2022 1:03 PM EST Pt called to check status. Please advise pt with a message on her phone. Pt also wanted you to be made aware Monday PM [id number] [facility] [place] her blood pressure at apt was okay 126/76. Pt was given a shot in her eye and after her apt she felt dizzy and they though may be her blood sugar had dropped (was not checked) so they gave her some orange juice and she sat for a while before they took her outto the vehicle to return her to [place]. When pt got back to [place] she went in to the eye center and after going to the bathroom she told the girl at the desk she was dizzy. The nurse took her to [facility] and her blood pressure was 198/92. Pt [...] call and went over notes below from Jordyn Muro DOULA with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 Saw Operator No August 06, 2022 3:36am Advance Directive Response Recorded Date/ Time Living Will No August 06, 2 023 6:32am Power of Insulation Board Head Saw Operator No August 06, 2022 6:32am Date Activated [...] or prosecute any alcohol or drug abuse patient.[facility]In the event this information is protected by the Federal Confidentiality of Alcohol and Drug Abuse Patient Records regulations: The Federal rules restrict any use of the information to criminally investigate or prosecute any alcohol or drug abuse patient.[facility] HospitalIn the event this information is protected by the Federal Confidentiality of Alcohol and Drug Abuse Patient Records regulations: The Federal rules restrict any use of the information to criminally investigate or prosecute any alcohol or drug abuse patient.[facility] HospitalIn the event this information is protected by the Federal Confidentiality of Alcohol and Drug Abuse Patient Records regulations: The Federal rules restrict any use of the information to criminally investigate or prosecute any alcohol or drug abuse patient.[facility] HospitalIn the event this information is protected by the Federal Confidentiality of Alcohol and Drug Abuse Patient Records regulations: The Federal rules restrict any use of the information to criminally investigate or prosecute any alcohol or drug abuse patient.[facility] HospitalIn the event this information is protected by the Federal Confidentiality of Alcohol and Drug Abuse Patient Records regulations: The Federal rules restrict any use of the information to criminally investigate or prosecute any alcohol or drug abuse patient.[facility] HospitalIn the event this information is protected by the Federal Confidentiality of Alcohol and Drug Abuse Patient Records regulations: The Federal rules restrict any use of the information to criminally investigate or prosecute any alcohol or drug abuse patient.[facility] HospitalIn the event this information is protected by the Federal Confidentiality of Alcohol and Drug Abuse Patient Records regulations: The Federal rules restrict any use of the information to criminally investigate or prosecute any alcohol or drug abuse patient.[facility] HospitalIn the event this information is protected by the Federal Confidentiality of Alcohol and Drug Abuse Patient Records regulations: The Federal rules restrict any use of the information to criminally investigate or prosecute any alcohol or drug abuse patient.[facility] HospitalIn the event this information is protected by the Federal Confidentiality of Alcohol and Drug Abuse Patient Records regulations: The Federal rules restrict any use of the information to criminally investigate or prosecute any alcohol or drug abuse patient.[facility] HospitalIn the event this information is protected by the Federal Confidentiality of Alcohol and Drug Abuse Patient Records regulations: The Federal rules restrict any use of the information to criminally investigate or prosecute any alcohol or drug abuse patient.[facility] HospitalIn the event this information is protected by the Federal Confidentiality of Alcohol and Drug Abuse Patient Records regulations: The Federal rules restrict any use of the information to criminally investigate or prosecute any alcohol or drug abuse patient.[facility] HospitalIn the event this information is protected by the Federal Confidentiality of Alcohol and Drug Abuse Patient Records regulations: The Federal rules restrict any use of the information to criminally investigate or prosecute any alcohol or drug abuse patient.[facility] HospitalIn the event this information is protected by the Federal Confidentiality of Alcohol and Drug Abuse Patient Records regulations: The Federal rules restrict any use of the information to criminally investigate or prosecute any alcohol or drug abuse patient.[facility] HospitalIn the event this information is protected by the Federal Confidentiality of Alcohol and Drug Abuse Patient Records regulations: The Federal rules restrict any use of the information to criminally investigate or prosecute any alcohol or drug abuse patient.[facility] HospitalIn the event this information is protected by the Federal Confidentiality of Alcohol and Drug Abuse Patient Records regulations: The Federal rules restrict any use of the information to criminally investigate or prosecute any alcohol or drug abuse patient.[facility] HospitalIn the event this information is protected by the Federal Confidentiality of Alcohol and Drug Abuse Patient Records regulations: The Federal rules restrict any use of the information to criminally investigate or prosecute any alcohol or drug abuse patient.[facility] HospitalIn the event this information is protected by the Federal Confidentiality of Alcohol and Drug Abuse Patient Records regulations: The Federal rules restrict any use of the information to criminally investigate or prosecute any alcohol or drug abuse patient.[facility] HospitalIn the event this information is protected by the Federal Confidentiality of Alcohol and Drug Abuse Patient Records regulations: The Federal rules restrict any use of the information to criminally investigate or prosecute any alcohol or drug abuse patient.[facility] HospitalIn the event this information is protected by the Federal Confidentiality of Alcohol and Drug Abuse Patient Records regulations: The Federal rules restrict any use of the information to criminally investigate or prosecute any alcohol or drug abuse patient.[facility] HospitalIn the event this information is protected by the Federal Confidentiality of Alcohol and Drug Abuse Patient Records regulations: The Federal rules restrict any use of the information to criminally investigate or prosecute any alcohol or drug abuse patient.[facility] HospitalIn the event this information is protected by the Federal Confidentiality of Alcohol and Drug Abuse Patient Records regulations: The Federal rules restrict any use of the information to criminally investigate or prosecute any alcohol or drug abuse patient.[facility] HospitalIn the event this information is protected by the Federal Confidentiality of Alcohol and Drug Abuse Patient Records regulations: The Federal rules restrict any use of the information to criminally investigate or prosecute any alcohol or drug abuse patient.[facility] HospitalIn the event this information is protected by the Federal Confidentiality of Alcohol and Drug Abuse Patient Records regulations: The Federal rules restrict any use of the information to criminally investigate or prosecute any alcohol or drug abuse patient.[facility] HospitalIn the event this information is protected by the Federal Confidentiality of Alcohol and Drug Abuse Patient Records regulations: The Federal rules restrict any use of the information to criminally investigate or prosecute any alcohol or drug abuse patient.[facility] HospitalIn the event this information is protected by the Federal Confidentiality of Alcohol and Drug Abuse Patient Records regulations: The Federal rules restrict any use of the information to criminally investigate or prosecute any alcohol or drug abuse patient.[facility] HospitalIn the event this information is protected by the Federal Confidentiality of Alcohol and Drug Abuse Patient Records regulations: The Federal rules restrict any use of the information to criminally investigate or prosecute any alcohol or drug abuse patient.[facility] HospitalIn the event this information is protected by the Federal Confidentiality of Alcohol and Drug Abuse Patient Records regulations: The Federal rules restrict any use of the information to criminally investigate or prosecute any alcohol or drug abuse patient.[facility] HospitalIn the event this information is protected by the Federal Confidentiality of Alcohol and Drug Abuse Patient Records regulations: The Federal rules restrict any use of the information to criminally investigate or prosecute any alcohol or drug abuse patient.[facility] HospitalIn the event this information is protected by the Federal Confidentiality of Alcohol and Drug Abuse Patient Records regulations: The Federal rules restrict any use of the information to criminally investigate or prosecute any alcohol or drug abuse patient.[facility] HospitalIn the event this information is protected by the Federal Confidentiality of Alcohol and Drug Abuse Patient Records regulations: The Federal rules restrict any use of the information to criminally investigate or prosecute any alcohol or drug abuse patient.[facility] HospitalIn the event this information is protected by the Federal Confidentiality of Alcohol and Drug Abuse Patient Records regulations: The Federal rules restrict any use of the information to criminally investigate or prosecute any alcohol or drug abuse patient.[facility] HospitalIn the event this information is protected by the Federal Confidentiality of Alcohol and Drug Abuse Patient Records regulations: The Federal rules restrict any use of the information to criminally investigate or prosecute any alcohol or drug abuse patient.[facility] HospitalIn the event this information is protected by the Federal Confidentiality of Alcohol and Drug Abuse Patient Records regulations: The Federal rules restrict any use of the information to criminally investigate or prosecute any alcohol or drug abuse patient.[facility] HospitalIn the event this information is protected by the Federal Confidentiality of Alcohol and Drug Abuse Patient Records regulations: The Federal rules restrict any use of the information to criminally investigate or prosecute any alcohol or drug abuse patient.[facility] HospitalIn the event this information is protected by the Federal Confidentiality of Alcohol and Drug Abuse Patient Records regulations: The Federal rules restrict any use of the information to criminally investigate or prosecute any alcohol or drug abuse patient.[facility] HospitalIn the event this information is protected by the Federal Confidentiality of Alcohol and Drug Abuse Patient Records regulations: The Federal rules restrict any use of the information to criminally investigate or prosecute any alcohol or drug abuse patient.[facility] HospitalIn the event this information is protected by the Federal Confidentiality of Alcohol and Drug Abuse Patient Records regulations: The Federal rules restrict any use of the information to criminally investigate or prosecute any alcohol or drug abuse patient.[facility] HospitalIn the event this information is protected by the Federal Confidentiality of Alcohol and Drug Abuse Patient Records regulations: The Federal rules restrict any use of the information to criminally investigate or prosecute any alcohol or drug abuse patient.[facility] HospitalIn the event this information is protected by the Federal Confidentiality of Alcohol and Drug Abuse Patient Records regulations: The Federal rules restrict any use of the information to criminally investigate or prosecute any alcohol or drug abuse patient.[facility] HospitalIn the event this information is protected by the Federal Confidentiality of Alcohol and Drug Abuse Patient Records regulations: The Federal rules restrict any use of the information to criminally investigate or prosecute any alcohol or drug abuse patient.[facility] HospitalIn the event this information is protected by the Federal Confidentiality of Alcohol and Drug Abuse Patient Records regulations: The Federal rules restrict any use of the information to criminally investigate or prosecute any alcohol or drug abuse patient.[facility] HospitalIn the event this information is protected by the Federal Confidentiality of Alcohol and Drug Abuse Patient Records regulations: The Federal rules restrict any use of the information to criminally investigate or prosecute any alcohol or drug abuse patient.[facility] HospitalIn the event this information is protected by the Federal Confidentiality of Alcohol and Drug Abuse Patient Records regulations: The Federal rules restrict any use of the information to criminally investigate or prosecute any alcohol or drug abuse patient.[facility] HospitalIn the event this information is protected by the Federal Confidentiality of Alcohol and Drug Abuse Patient Records regulations: The Federal rules restrict any use of the information to criminally investigate or prosecute any alcohol or drug abuse patient.[facility] HospitalIn the event this information is protected by the Federal Confidentiality of Alcohol and Drug Abuse Patient Records regulations: The Federal rules restrict any use of the information to criminally investigate or prosecute any alcohol or drug abuse patient.[facility] HospitalIn the event this information is protected by the Federal Confidentiality of Alcohol and Drug Abuse Patient Records regulations: The Federal rules restrict any use of the information to criminally investigate or prosecute any alcohol or drug abuse patient.[facility] HospitalIn the event this information is protected by the Federal Confidentiality of Alcohol and Drug Abuse Patient Records regulations: The Federal rules restrict any use of the information to criminally investigate or prosecute any alcohol or drug abuse patient.[facility] HospitalIn the event this information is protected by the Federal Confidentiality of Alcohol and Drug Abuse Patient Records regulations: The Federal rules restrict any use of the information to criminally investigate or prosecute any alcohol or drug abuse patient.[facility] HospitalIn the event this information is protected by the Federal Confidentiality of Alcohol and Drug Abuse Patient Records regulations: The Federal rules restrict any use of the information to criminally investigate or prosecute any alcohol or drug abuse patient.[facility] HospitalIn the event this information is protected by the Federal Confidentiality of Alcohol and Drug Abuse Patient Records regulations: The Federal rules restrict any use of the information to criminally investigate or prosecute any alcohol or drug abuse patient.[facility] HospitalIn the event this information is protected by the Federal Confidentiality of Alcohol and Drug Abuse Patient Records regulations: The Federal rules restrict any use of the information to criminally investigate or prosecute any alcohol or drug abuse patient.[facility] HospitalIn the event this information is protected by the Federal Confidentiality of Alcohol and Drug Abuse Patient Records regulations: The Federal rules restrict any use of the information to criminally investigate or prosecute any alcohol or drug abuse patient.[facility] HospitalIn the event this information is protected by the Federal Confidentiality of Alcohol and Drug Abuse Patient Records regulations: The Federal rules restrict any use of the information to criminally investigate or prosecute any alcohol or drug abuse patient.[facility] HospitalIn the event this information is protected by the Federal Confidentiality of Alcohol and Drug Abuse Patient Records regulations: The Federal rules restrict any use of the information to criminally investigate or prosecute any alcohol or drug abuse patient.[facility] HospitalIn the event this information is protected by the Federal Confidentiality of Alcohol and Drug Abuse Patient Records regulations: The Federal rules restrict any use of the information to criminally investigate or prosecute any alcohol or drug abuse patient.[facility] HospitalIn the event this information is protected by the Federal Confidentiality of Alcohol and Drug Abuse Patient Records regulations: The Federal rules restrict any use of the information to criminally investigate or prosecute any alcohol or drug abuse patient.[facility] HospitalIn the event this information is protected by the Federal Confidentiality of Alcohol and Drug Abuse Patient Records regulations: The Federal rules restrict any use of the information to criminally investigate or prosecute any alcohol or drug abuse patient.[facility] HospitalIn the event this information is protected by the Federal Confidentiality of Alcohol and Drug Abuse Patient Records regulations: The Federal rules restrict any use of the information to criminally investigate or prosecute any alcohol or drug abuse patient.[facility] HospitalIn the event this information is protected by the Federal Confidentiality of Alcohol and Drug Abuse Patient Records regulations: The Federal rules restrict any use of the information to criminally investigate or prosecute any alcohol or drug abuse patient.[facility] HospitalIn the event this information is protected by the Federal Confidentiality of Alcohol and Drug Abuse Patient Records regulations: The Federal rules restrict any use of the information to criminally investigate or prosecute any alcohol or drug abuse patient.[facility] HospitalIn the event this information is protected by the Federal Confidentiality of Alcohol and Drug Abuse Patient Records regulations: The Federal rules restrict any use of the information to criminally investigate or prosecute any alcohol or drug abuse patient.[facility] HospitalIn the event this information is protected by the Federal Confidentiality of Alcohol and Drug Abuse Patient Records regulations: The Federal rules restrict any use of the information to criminally investigate or prosecute any alcohol or drug abuse patient.[facility] HospitalIn the event this information is protected by the Federal Confidentiality of Alcohol and Drug Abuse Patient Records regulations: The Federal rules restrict any use of the information to criminally investigate or prosecute any alcohol or drug abuse patient.[facility] HospitalIn the event this information is protected by the Federal Confidentiality of Alcohol and Drug Abuse Patient Records regulations: The Federal rules restrict any use of the information to criminally investigate or prosecute any alcohol or drug abuse patient.[facility] HospitalIn the event this information is protected by the Federal Confidentiality of Alcohol and Drug Abuse Patient Records regulations: The Federal rules restrict any use of the information to criminally investigate or prosecute any alcohol or drug abuse patient.[facility] HospitalIn the event this information is protected by the Federal Confidentiality of Alcohol and Drug Abuse Patient Records regulations: The Federal rules restrict any use of the information to criminally investigate or prosecute any alcohol or drug abuse patient.[facility] HospitalIn the event this information is protected by the Federal Confidentiality of Alcohol and Drug Abuse Patient Records regulations: The Federal rules restrict any use of the information to criminally investigate or prosecute any alcohol or drug abuse patient.[facility] HospitalIn the event this information is protected by the Federal Confidentiality of Alcohol and Drug Abuse Patient Records regulations: The Federal rules restrict any use of the information to criminally investigate or prosecute any alcohol or drug abuse patient.[facility] HospitalIn the event this information is protected by the Federal Confidentiality of Alcohol and Drug Abuse Patient Records regulations: The Federal rules restrict any use of the information to criminally investigate or prosecute any alcohol or drug abuse patient.[facility] HospitalIn the event this information is protected by the Federal Confidentiality of Alcohol and Drug Abuse Patient Records regulations: The Federal rules restrict any use of the information to criminally investigate or prosecute any alcohol or drug abuse patient.[facility] HospitalIn the event this information is protected by the Federal Confidentiality of Alcohol and Drug Abuse Patient Records regulations: The Federal rules restrict any use of the information to criminally investigate or prosecute any alcohol or drug abuse patient.[facility] HospitalIn the event this information is protected by the Federal Confidentiality of Alcohol and Drug Abuse Patient Records regulations: The Federal rules restrict any use of the information to criminally investigate or prosecute any alcohol or drug abuse patient.[facility] HospitalIn the event this information is protected by the Federal Confidentiality of Alcohol and Drug Abuse Patient Records regulations: The Federal rules restrict any use of the information to criminally investigate or prosecute any alcohol or drug abuse patient.[facility] HospitalIn the event this information is protected by the Federal Confidentiality of Alcohol and Drug Abuse Patient Records regulations: The Federal rules restrict any use of the information to criminally investigate or prosecute any alcohol or drug abuse patient.[facility] HospitalIn the event this information is protected by the Federal Confidentiality of Alcohol and Drug Abuse Patient Records regulations: The Federal rules restrict any use of the information to criminally investigate or prosecute any alcohol or drug abuse patient.[facility] HospitalIn the event this information is protected by the Federal Confidentiality of Alcohol and Drug Abuse Patient Records regulations: The Federal rules restrict any use of the information to criminally investigate or prosecute any alcohol or drug abuse patient.[facility] HospitalIn the event this information is protected by the Federal Confidentiality of Alcohol and Drug Abuse Patient Records regulations: The Federal rules restrict any use of the information to criminally investigate or prosecute any alcohol or drug abuse patient.[facility] HospitalIn the event this information is protected by the Federal Confidentiality of Alcohol and Drug Abuse Patient Records regulations: The Federal rules restrict any use of the information to criminally investigate or prosecute any alcohol or drug abuse patient.[facility] HospitalIn the event this information is protected by the Federal Confidentiality of Alcohol and Drug Abuse Patient Records regulations: The Federal rules restrict any use of the information to criminally investigate or prosecute any alcohol or drug abuse patient.[facility] Reason for Visit (unrecogniz ed section and content) Reason Comments Follow Up Reason Onset Date Comments Refill Request 01/13/2022 Reason Comments Medical Clearance Reason Comments Imm/Inj Reason Comments Forms Reason Comments ED Follow-up [facility]-Chest pain/press ure Reason Comments Results Reason Onset Date Comments Population Health Navigation Outreach 07/06/2022 [facility] [place] [facility] Reason Comments Established Patient 4 month follow up Reason Comments Hospital F/U [facility] discharge 08/12/19 Reason Onset Date Comments [...] Comments Patient Question Reason Comments ED Follow-up [facility] follow up Reason Comments Remote Pacemaker [...] Care Teams (unrecognized sec tion and content) Director Network Development Relationship Specialty Start Date End Date Carmen Johnson MD [address] [place], [place] [address] PCP - General Internal Medicine 08/11/16 Fatemeh Simpson, [facility] [address] [place], [place] [address] Pharmacist Pharmacy 03/25/20 Director Network Development Relationship Specialty Start Date End Date Carmen Johnson MD [address] [place] [address] PCP - General Internal Medicine 08/11/16 [facility] [address] [place] [address] Pharmacist Pharmacy 03/25/20 Director Network Development Relationship Specialty Start Date End Date Carmen Johnson MD [address] [facility] [place] [address] PCP - General Internal Medicine 08/11/16 [facility] [address] [facility] [place] [address] Pharmacist Pharmacy 03/25/20 Director Network Development Relationship Specialty Start Date End Date Carmen Johnson MD [address] [facility] [place] [address] PCP - General Internal Medicine 08/11/16 [facility], [facility] [address] [facility] [place] [address] Pharmacist Pharmacy 03/25/20 Director Network Development Relationship Specialty Start Date End Date Carmen Johnson MD [address] [facility] [place] [address] PCP - General Internal Medicine 08/11/16 [facility], [facility] [address] [place] [address] Pharmacist Pharmacy 03/25/20 Director Network Development Relationship Specialty Start Date End Date Carmen Johnson MD [address] [facility] [place] [address] PCP - General Internal Medicine 08/11/16 [facility] [address] [place] [address] Pharmacist Pharmacy 03/25/20 Director Network Development Relationship Specialty Start Date End Date Carmen Johnson MD [address] [facility] [place] [address] PCP - General Internal Medicine 08/11/16 [facility], [facility] [address] [facility] [place] [address] Pharmacist Pharmacy 03/25/20 Director Network Development Relationship Specialty Start Date End Date Carmen Johnson MD [address] [facility] [place] [address] PCP - General Internal Medicine 08/11/16 [facility], [facility] [address] [facility] [place] [address] Pharmacist Pharmacy 03/25/20 Director Network Development Relationship Specialty Start Date End Date Carmen Johnson MD [address] [facility] [place] [address] PCP - General Internal Medicine 08/11/16 [facility], [facility] [address] [facility] [place] [address] Pharmacist Pharmacy 03/25/20 Director Network Development Relationship Specialty Start Date End Date Carmen Johnson MD [address] [facility] [place] [address] PCP - General Internal Medicine 08/11/16 [facility], [facility] [address] [facility] [address] Pharmacist Pharmacy 03/25/20 Team Status: Active Member [...] Dr. Gage Shah MD Other Provider Active Director Network Development Relationship Specialty Start Date End Date Carmen Johnson MD [address] [facility] [place] [address] PCP - General Internal Medicine 08/11/16 Fatemeh Simpson, [facility] [address] [facility] [place] [address] Pharmacist Pharmacy 03/25/20 Director Network Development Relationship Specialty Start Date End Date Carmen Johnson MD [address] [facility] [place] [address] PCP - General Internal Medicine 08/11/16 Fatemeh Simpson, [facility] [address] [facility] [place] [address] Pharmacist Pharmacy 03/25/20 Director Network Development Relationship Specialty Start Date End Date Carmen Johnson MD [address] [facility] [place] [address] PCP - General Internal Medicine 08/11/16 RjFatemeh, [facility] [address] [facility] [address] Pharmacist Pharmacy 03/25/20 Director Network Development Relationship Specialty Start Date End Date Carmen Johnson MD [address] [facility] [place] [address] PCP - General Internal Medicine 08/11/16 Fatemeh Simpson, [facility] [address] [facility] [place] [address] Pharmacist Pharmacy 03/25/20 Director Network Development Relationship Specialty Start Date End Date Carmen Johnson MD [address] [facility] [place] [address] PCP - General Internal Medicine 08/11/16 RjFatemeh, [facility] [address] [facility] [address] Pharmacist Pharmacy 03/25/20 Director Network Development Relationship Specialty Start Date End Date Carmen Johnson MD [address] [facility] [place] [address] PCP - General Internal Medicine 08/11/16 Director Network Development Relationship Specialty Start Date End Date Carmen Johnson MD [address] [facility] [place] [address] PCP - General Internal Medicine 08/11/16 Director Network Development Relationship Specialty Start Date End Date Carmen Johnson MD [address] [facility] [address] PCP - General Internal Medicine 08/11/16 Director Network Development Relationship Specialty Start Date End Date Carmen Johnson MD [address] [facility] [place] [address] PCP - General Internal Medicine 08/11/16 Director Network Development Relationship Specialty Start Date End Date Carmen Johnson MD [address] [facility] [place] [address] PCP - General Internal Medicine 08/11/16 Director Network Development Relationship Specialty Start Date End Date Carmen Johnson MD [address] [facility] [place] [address] PCP - General Internal Medicine 08/11/16 Director Network Development Relationship Specialty Start Date End Date Carmen Johnson MD [address] [facility] [address] PCP - General Internal Medicine 08/11/16 Corwin Orellana DO [address] [place] [address] Referring 11/15/23 Carmen Jonhson MD [address] [place] [address] Home Care Provider Internal Medicine 11/15/23 Director Network Development Relationship Specialty Start Date End Date Carmen Johnson MD [address] [place] [address] PCP - General Internal Medicine 08/11/16 Corwin Orellana DO [address] [place] [address] Referring 11/15/23 Carmen Johnson MD [address] [place] [address] Home Care Provider Internal Medicine 11/15/23 Director Network Development Relationship Specialty Start Date End Date Carmen Johnson MD [address] [place] [address] PCP - General Internal Medicine 08/11/16 Corwin Orellana DO [address] [place] [address] Referring 11/15/23 Carmen Johnson MD [address] [place] [address] Home Care Provider Internal Medicine 11/15/23 Director Network Development Relationship Specialty Start Date End Date Carmen Johnson MD [address] [place] [address] PCP - General Internal Medicine 08/11/[address] [facility], [address] [place], [place] [id number] Referring 11/15/23 Carmen Johnson MD [address] [place] [address] Home Care Provider Internal Medicine 11/15/23 Director Network Development Relationship Specialty Start Date End Date Carmen Johnson MD [address] [place] [address] PCP - General Internal Medicine 08/11/16 [facility], [address] [place] [address] Referring 11/15/23 Carmen Johnson MD [address] [place] [address] Home Care Provider Internal Medicine 11/15/23 Director Network Development Relationship Specialty Start Date End Date Carmen Johnson MD [address] [place] [address] PCP - General Internal Medicine 08/11/16 [facility], [address] [place], [place] [id number] Referring 11/15/23 Carmen Johnson MD [address] [place] [address] Home Care Provider Internal Medicine 11/15/23 Director Network Development Relationship Specialty Start Date End Date Carmen Johnson MD [address] [place] [address] PCP - General Internal Medicine 08/11/16 [facility]win [facility]rellana DO [address] [facility] [place] [id number] Referring 11/15/23 Carmen Johnson MD [address] [place] [address] Home Care Provider Internal Medicine 11/15/23 Director Network Development Relationship Specialty Start Date End Date Carmen Johnson MD [address] [place] [address] PCP - General Internal Medicine 08/11/16 Corwin Orellana DO [address] [place] [address] Referring 11/15/23 Carmen Johnson MD [address] [place] [address] Home Care Provider Internal Medicine 11/15/23 ProviderАлександр MD [employer] 11/15/23 12/15/23 Director Network Development Relationship Specialty Start Date End Date Carmen Johnson MD [address] [place] [address] PCP - General Internal Medicine 08/11/16 [address] [facility] [place] [id number] Referring 11/15/23 Carmen Johnson MD [address] [place] [address] Home Care Provider Internal Medicine 11/15/23 Александр Daniels MD [employer] 11/15/23 12/15/23 Director Network Development Relationship Specialty Start Date End Date Cramen Johnson MD [address] [place] [address] PCP - General Internal Medicine 08/11/16 [facility], [address] [place], [place] [id number] Referring 11/15/23 Carmen Johnson MD [address] [place] [address] Home Care Provider Internal Medicine 11/15/23 Александр Daniels MD [employer] 11/15/23 12/15/23 Director Network Development Relationship Specialty Start Date End Date Carmen Johnson MD [address] [place], [place] [address] PCP - General Internal Medicine 08/11/16 [facility] [address] [place] [address] Referring 11/15/23 Carmen Johnson MD [address] [place], [place] 275021 Home Care Provider Internal Medicine 11/15/23 Александр Daniels MD [employer] 11/15/23 12/15/23 Director Network Development Relationship Specialty Start Date End Date Carmen Johnson MD [address] [place], [place] [id number] PCP - General Internal Medicine 08/11/16 Corwin Orellana DO [address] [place] [address] Referring 11/15/23 Carmen Johnson MD [address] [place], [place] [address]3271 Home Care Provider Internal Medicine 11/15/23 Александр Daniels MD [employer] 11/15/23 12/15/23 Director Network Development Relationship Specialty Start Date End Date Carmen Johnson MD [address] [place], [place] [address] PCP - General Internal Medicine 08[facility]11/16 [facility] [address] [place] [address] Referring 11/15/23 Carmen Johnson MD [address] [place], [place] [address] Home Care Provider Internal Medicine 11/15/23 Александр Daniels MD [employer] 11/15/23 12/15/23 Director Network Development Relationship Specialty Start Date End Date Carmen Johnson MD [address] [place], [place] [address] PCP - General Internal Medicine 08/11/16 Corwin Orellana DO [address] [place] [address] Referring 11/15/23 Carmen Johnson MD [address] [place], [place] [address]691 Home Care Provider Internal Medicine 11/15/23 Александр Daniels MD [employer] 11/15/23 12/15/23 Director Network Development Relationship Specialty Start Date End Date Carmen Johnson MD [address] [place] [address] PCP - General Internal Medicine 08/11/16 Corwin Orellana, [address] [place] [address] Referring 11/15/23 Carmen Johnson MD [address] [place] [address] Home Care Provider Internal Medicine 11/15/23 Александр Daniels MD [employer] 11/15/23 12/15/23 Director Network Development Relationship Specialty Start Date End Date Carmen Johnson MD [address] [place] [address] PCP - General Internal Medicine 08/11/16 [facility] [address] [place] [address] Referring 11/15/23 Carmen Johnson MD [address] [place] [address] Home Care Provider Internal Medicine 11/15/23 Director Network Development Relationship Specialty Start Date End Date Carmen Johnson MD [address] [place] [address] PCP - General Internal Medicine 08/11/16 Cowrin Orellana DO [address] [place] [address] Referring 11/15/23 Carmen Johnson MD [address] [place] [address] Home Care Provider Internal Medicine 11/15/23 Director Network Development Relationship Specialty Start Date End Date Carmen Johnson MD [address] [place] [address] PCP - General Internal Medicine 08/11/16 Corwin Orellana DO [address] [place] [address] Referring 11/15/23 Carmen Johnson MD [address] [place] [address] Home Care Provider Internal Medicine 11/15/23 Director Network Development Relationship Specialty Start Date End Date Carmen Johnson MD [address] [place], [place] [address]41 PCP - General Internal Medicine 08/11/16 Corwin Orellana DO [address] [place] [address] Referring 11/15/23 Carmen Johnson MD [address] [place] [address] Home Care Provider Internal Medicine 11/15/23 Director Network Development Relationship Specialty Start Date End Date Carmen Johnson MD [address] [place], [place] [address]181 PCP - General Internal Medicine 08/11/16 Corwin Orellana, [address] [place], [place] [id number] Referring 11/15/23 Carmen Johnson MD [address] [place], [place] [address]691 Home Care Provider Internal Medicine 11/15/23 Director Network Development Relationship Specialty Start Date End Date Carmen Johnson MD [address] [place], [place] 114131 PCP - General Internal Medicine 08/11/16 Corwin Orellana DO [address] [place], [place] [id number] Referring 11/15/23 Carmen Johnson MD [address] [place], [place] [address]671 Home Care Provider Internal Medicine 11/15/23 Jordyn Muro, CLOSET ORGANIZER.POLISHER APPRENTICE [address] [place] [address] [employer] Internal Medicine 05/20/24 Lissett Devries, CLOSET ORGANIZER.JOURNEYMAN CARPENTER [address] [place] [address] [employer] Internal Medicine 05/20/24 Director Network Development Relationship Specialty Start Date End Date Carmen Johnson MD [address] [place] [address] PCP - General Internal Medicine 08/11/16 Corwin Orellana DO [address] [place] [address] Referring 11/15/23 Carmen Johnson MD [address] [place] [address] Home Care Provider Internal Medicine 11/15/23 Jordyn Muro, CLOSET ORGANIZER.POLISHER APPRENTICE [address] [place] [address] [employer] Internal Medicine 05/20/24 Lissett Devries CLOSET ORGANIZER.JOURNEYMAN CARPENTER [address] [place] [address] [employer] Internal Medicine 05/20/24 Director Network Development Relationship Specialty Start Date End Date Carmen Johnson MD [address] [place] [address] PCP - General Internal Medicine 08/11/16 Corwin Orellana DO [address] [place] [address] Referring 11/15/23 Carmen Johnson MD [address] [place] [address] Home Care Provider Internal Medicine 11/15/23 Jordyn Muro, CLOSET ORGANIZER.POLISHER APPRENTICE [address] [place] [address] [employer] Internal Medicine 05/20/24 Lissett Devries CLOSET ORGANIZER.JOURNEYMAN CARPENTER [address] [place] [address] [employer] Internal Medicine 05/20/24 Director Network Development Relationship Specialty Start Date End Date Carmen Johnson MD [address] [place], [place] [address]71 PCP - General Internal Medicine 08/11/16 Corwin Orellana DO [address] [place], [place] [id number] Referring 11/15/23 Carmen Johnson MD [address] [place], [place] 164111 Home Care Provider Internal Medicine 11/15/23 Jordyn Muro, CLOSET ORGANIZER.POLISHER APPRENTICE [address] [place] [address] [employer] Internal Medicine 05/20/24 Lissett Devries, CLOSET ORGANIZER.JOURNEYMAN CARPENTER [address] [place] [address] [employer] Internal Medicine 05/20/24 Director Network Development Relationship Specialty Start Date End Date Carmen Johnson MD [address] [place] [address] PCP - General Internal Medicine 08/11/[address] [facility] [address] [place] [address] Referring 11/15/23 Carmen Johnson MD [address] [place] [address] Home Care Provider Internal Medicine 11/15/23 Jordyn Muro, CLOSET ORGANIZER.POLISHER APPRENTICE [address] [place] [address] [employer] Internal Medicine 05/20/24 Lissett Devries APRN.JOURNEYMAN CARPENTER [address] [place] [address] [employer] Internal Medicine 05/20/24 Director Network Development Relationship Specialty Start Date End Date Carmen Johnson MD [address] [place] [address] PCP - General Internal Medicine 08/11/16 Corwin Orellana DO [address] [place] [facility], [place] [id number] Referring 11/15/23 Carmen Johnson MD [address] [place] [address] Home Care Provider Internal Medicine 11/15/23 Jordyn Muro APRN.POLISHER APPRENTICE [address] [place] [address] [employer] Internal Medicine 05/20/24 Lissett Devries APRN.JOURNEYMAN CARPENTER [address] [place] [address] [employer] Internal Medicine 05/20/24 Director Network Development Relationship Specialty Start Date End Date Carmen Johnson MD [address] [place], [place] [address]151 PCP - General Internal Medicine 08/11/16 Corwin Orellana DO [address] [place], [place] [id number] Referring 11/15/23 Carmen Johnson MD [address] [place] [address] Home Care Provider Internal Medicine 11/15/23 Jordyn Muro, RODNEY.POLISHER APPRENTICE [address] [place] [address] [employer] Internal Medicine 05/20/24 Lissett Devries CLOSET ORGANIZER.JOURNEYMAN CARPENTER [address] [place] [address] [employer] Internal Medicine 05/20/24 Director Network Development Relationship Specialty Start Date End Date Carmen Johnson MD [address] [place] [address] PCP - General Internal Medicine 08/11/16 Corwin Orellana DO [address] [place] [address] Referring 11/15/23 Carmen Johnson MD [address] [place] [address] Home Care Provider Internal Medicine 11/15/23 Jordyn Muro, RODNEY.POLISHER APPRENTICE [address] [place] [address] [employer] Internal Medicine 05/20/24 Lissett Devries APRN.JOURNEYMAN CARPENTER [address] [place] [address] [employer] Internal Medicine 05/20/24 08/30/24 Director Network Development Relationship Specialty Start Date End Date Carmen Johnson MD [address] [place] [address] PCP - General Internal Medicine 08/11/16 Corwin Orellana DO [address] [place] [address] Referring 11/15/23 Carmen Johnson MD [address] [place] [address] Home Care Provider Internal Medicine 11/15/23 Jordyn Muro APRN.POLISHER APPRENTICE [address] [place] [address] [employer] Internal Medicine 05/20/24 Lissett Devries APRN.JOURNEYMAN CARPENTER [address] [place] [address] [employer] Internal Medicine 05/20/24 08/30/24 Lissett Devries APRN.JOURNEYMAN CARPENTER [address] [place] [address] [employer] Internal Medicine 09/03/24 Director Network Development Relationship Specialty Start Date End Date Carmen Johnson MD [address] [place] [address] PCP - General Internal Medicine 08/11/16 Corwin Orellana DO [address] [place] [address] Referring 11/15/23 Carmen Johnson MD [address] [place], [place] [address] Home Care Provider Internal Medicine 11/15/23 Jordyn Muro, CLOSET ORGANIZER.POLISHER APPRENTICE [address] [facility] [place] [address] [employer] Internal Medicine 05/20/24 Lissett Devries APRN.JOURNEYMAN CARPENTER [address] [facility], [place] [address] [employer] Internal Medicine 09/03/24 Director Network Development Relationship Specialty Start Date End Date Carmen Johnson MD [address] [facility], [place] [address] PCP - General Internal Medicine 08/11/16 Corwin Orellana DO [address] [place], [place] [id number] Referring 11/15/23 Carmen Johnson MD [address] [facility] [place] [address] Home Care Provider Internal Medicine 11/15/23 Jordyn Muro, CLOSET ORGANIZER.POLISHER APPRENTICE [address] [facility] [place] [address] [employer] Internal Medicine 05/20/24 Lissett Devries CLOSET ORGANIZER.JOURNEYMAN CARPENTER [address] [facility] [place] [address] [employer] Internal Medicine 09/03/24 Team Status: Active Member [...] September 25, 2024 End: September 25, 2024 Director Network Development Relationship Specialty Start Date End Date Ryan Kamara [address] [address] PCP - General Family Medicine 10/03/24 Corwin Orellana DO [address] [place] [address] Referring 11/15/23 Carmen Johnson MD [address] [place] [address] Home Care Provider Internal Medicine 11/15/23 Jordyn Muro, CLOSET ORGANIZER.POLISHER APPRENTICE [address] [place] [address] [employer] Internal Medicine 05/20/24 Lissett Devries, CLOSET ORGANIZER.JOURNEYMAN CARPENTER [address] [place] [address] [employer] Internal Medicine 09/03/24 Director Network Development Relationship Specialty Start Date End Date Carmen Johnson MD [address] [place] [address] PCP - General Internal Medicine 08/11/16 10/02/24 Ryan Kamara [address] [address] PCP - General Family Medicine 10/03/24 Corwin Orellana DO [address] [place] [address] Referring 11/15/23 Carmen Johnson MD [address] [place] [address] Home Care Provider Internal Medicine 11/15/23 Jordyn Muro, RODNEY.POLISHER APPRENTICE [address] [place] [address] [employer] Internal Medicine 05/20/24 Lsisett Devries CLOSET ORGANIZER.JOURNEYMAN CARPENTER [address] [place] [address] [employer] Internal Medicine 09/03/24 Director Network Development Relationship Specialty Start Date End Date Ryan Kamara [address] [address] PCP - General Family Medicine 10/03/24 Corwin Orellana DO [address] [place] [address] Referring 11/15/23 Carmen Johnson MD [address] [place] [address] Home Care Provider Internal Medicine 11/15/23 Jordyn Muro, CLOSET ORGANIZER.POLISHER APPRENTICE [address] [place] [address] [employer] Internal Medicine 05/20/24 Lissett Devries APRN.JOURNEYMAN CARPENTER [address] [place] [address] [facility] 09/03/24 Team Status: Active Member [...] section and content) DATE CREATED AUTHOR 10/20/[address] [facility] DATE CREATED AUTHOR AUTHOR'S ORGANIZ ATION 11/10/2024 [facility] DATE CREATED AUTHOR AUTHOR'S ORGANIZ ATION 11/22/2024 [facility] FOR RECORDS PERTAINING TO PATIENTS WHO ARE [...] BE BASED ON THE PRIMARY CLINICAL RECORDS. [facility], [facility]. provides no warranty or guarantee of the accuracy or completeness of information in this document.
[2025-05-19] VITALS (20 sets, daily range): BP systolic 114–170; BP diastolic 50–89; PULSE 75–90; RESP 16–25; TEMP 36.3–37.2; O2SAT 87–98; BMI 23.1
--- NOTE | 2025-05-19 00:21 | ECHOCS_ITS ---
Reason For Study Reason For Study: MONTOYA, ABNORMAL CT Procedure This was a 2D Doppler, Color Flow transthoracic echocardiogram. The study was technically difficult. Contrast injection was performed. Exam performed portable in patient room. Left Ventricle Dilated LV apex. Left ventricular systolic function moderately reduced. Ejection fraction estimated 35%-40%. Unable to determine diastolic dysfunction grade due to mitral annular calcification. Apical hypokinesis. Right Ventricle Normal right ventricle. ICD or pacer leads identified within the right ventricle. Normal systolic function. RVSP estimated less than 30 mmHg. Atria Left atrium is severely enlarged. Normal-sized right atrium. Right atrial pressure estimated at: 3 mmHg. Mitral Valve Severe mitral annular calcification. Mild mitral regurgitation. Tricuspid Valve Normal tricuspid valve. Trace tricuspid regurgitation. No tricuspid stenosis. Aortic Valve Tricuspid aortic valve. Mild aortic regurgitation. No hemodynamically significant aortic stenosis. Pulmonic Valve Normal pulmonic valve. No pulmonic regurgitation. No pulmonic stenosis. Great Vessels Normal sized aortic root. Normal ascending aorta. Pericardium/Pleural No pericardial effusion. Epicardial fat. Medication Diluted definity 1.5ml given slow IV push to enhance endocardial definition. MMode/2D Measurements & Calculations LVIDd: 4.6 cm IVSd: 1.0 cm Ao root diam: 3.3 cm LVIDs: 3.2 cm LVPWd: 1.0 cm RVDd: 3.0 cm FS: 29.8 % LAV(MOD-bp): 83.4 ml LVAd ap4: 26.8 cm2 LVAd ap2: 31.5 cm2 LAV(MOD-bp) Indexed: 55.9 ml/m2 LVLd ap4: 7.0 cm LVLd ap2: 7.3 cm LAV(MOD-sp2): 88.9 ml EDV(MOD-sp4): 83.1 ml EDV(MOD-sp2): 113.2 ml LAV(MOD-sp4): 71.2 ml EDV(sp4-el): 87.3 ml EDV(sp2-el): 115.1 ml LVAs ap4: 21.2 cm2 LVAs ap2: 23.8 cm2 LVLs ap4: 6.5 cm LVLs ap2: 6.7 cm ESV(MOD-sp4): 55.5 ml ESV(MOD-sp2): 67.5 ml ESV(sp4-el): 58.6 ml ESV(sp2-el): 71.1 ml EF(MOD-sp4): 33.3 % EF(MOD-sp2): 40.4 % EF(sp4-el): 32.8 % SV(MOD-sp4): 27.7 ml SV(MOD-sp2): 45.7 ml SV(sp4-el): 28.6 ml SI(MOD-sp4): 18.6 ml/m2 SI(MOD-sp2): 30.6 ml/m2 LA A4 area: 23.2 cm2 LA dimension(2D): 3.8 cm RA A4 area: 9.8 cm2 TAPSE: 1.8 cm Time Measurements MV dec time: 0.31 sec Doppler Measurements & Calculations MV E max nnamdi: 104.6 cm/sec MV V2 max: 189.7 cm/sec MV P1/2t max nnamdi: 118.9 cm/sec MV A max nnamdi: 180.5 cm/sec MV max P.4 mmHg MV P1/2t: 97.9 msec MV E/A: 0.58 MV V2 mean: 99.8 cm/sec MV dec slope: 355.8 cm/sec2 MV mean P.7 mmHg MVA(P1/2t): 2.2 cm2 MV V2 VTI: 38.8 cm Ao V2 max: 173.6 cm/sec LV V1 max: 114.5 cm/sec PA V2 max: 89.2 cm/sec Ao max P.1 mmHg LV V1 max P.2 mmHg Ao V2 mean: 120.5 cm/sec LV V1 mean P.7 mmHg Ao mean P.7 mmHg LV V1 mean: 75.3 cm/sec Ao V2 VTI: 35.9 cm LV V1 VTI: 22.5 cm AV (velocity ratio): 0.63 TR max nnamdi: 238.2 cm/sec TR max P.7 mmHg ECHO/Echo Complete W/ Contrast Interpretation Summary Moderately reduced LV systolic function, with ejection fraction: 35 to 40% Dilated and hypokinetic left ventricular apex Normal right ventricular systolic function Mild aortic regurgitation Ordering Physician: Elpidio Pace Referring Physician: Gill Velez Performed By: Benito Robles RDCS
--- NOTE | 2025-05-19 01:02 | EKG12_ITS ---
Test Reason : CP ADMISSION Blood Pressure : */* mmHG Vent. Rate : 89 BPM Atrial Rate : 89 BPM P-R Int : 152 ms QRS Dur : 140 ms QT Int : 410 ms P-R-T Axes : 35 267 71 degrees QTcB Int : 498 ms Atrial-sensed ventricular-paced rhythm Abnormal ECG When compared with ECG of 18-May-2025 17:49, MANUAL COMPARISON REQUIRED DATA IS UNCONFIRMED Confirmed by Bryant Pereyra ([id number]), editor producer DELORES ARELLANO ([id number]) on 05/20/2025 8:40:57 AM Referred By: ROSALIO Confirmed By: Bryant Pereyra
[2025-05-19] MEDS: Pantoprazole Sodium 40 MG in 0.9% Normal Saline (100mL MB+) 100 ML 300 MG IV ×3 (01:23→21:09)
[2025-05-19] MEDS: 0.9% Saline Lock 10 ML Syringe IV ×2 (01:23→22:31)
[2025-05-19 01:38] LABS: Magnesium 1.8 mg/dL (1.5-2.2)
[2025-05-19 03:01] LABS: Hematocrit 32.1 % (37-47); Hemoglobin 9.8 g/dL (12.0-15.0)
[2025-05-19 03:55] LABS: Troponin T High Sensitivity 756 ng/L (<=14)
[2025-05-19] MEDS: Metoprolol(XL)Succ 25 MG Tablet PO (06:52)
[2025-05-19] MEDS: Aspirin E.C. 81 MG Tablet PO (06:53)
[2025-05-19 07:53] LABS: Hematocrit 29.9 % (37-47); Hemoglobin 9.1 g/dL (12.0-15.0); Immature Granulocytes Count 0.040 X10^3/uL (0.0-0.0); Mean Corp Hgb Conc 30.4 g/dL (32-36); Mean Corpuscular Volume 78.5 fL (81-99); Mean Platelet Vol. 11.6 fl (6.2-12.0); NRBC Flagged by Analyzer 0 % (0-5); Platelet Count 202 K/mm3 (150-450); RBC Distribution Width CV 16.8 % (11.6-14.6); RBC Distribution Width SD 47.7 fl (35.1-43.9); Red Blood Count 3.81 M/mm3 (4.2-5.4); White Blood Count 7.4 K/mm3 (4.4-11.0)
[2025-05-19 08:38] LABS: Anion Gap 11 (5-15); BUN 17 mg/dL (4-19); BUN/Creat Ratio 16.9 RATIO (10-20); Calcium,Total 9.1 mg/dL (7.6-11.0); Carbon Dioxide 23.5 mmol/L (21.0-32.0); Chloride 103 mmol/L (98-108); Cholesterol 177 mg/dL (<=200); Estimated Creatinine Clearance 34.76 ml/min (50-250); Glucose 149 mg/dL (70-99); Low Density Lipoprotein Calc. 112 mg/dL; Potassium 3.7 mmol/L (3.3-5.1); Triglycerides 80 mg/dL; Very Low Density Lipoprotein 16 mg/dL (5-40); cholesterol:hdl ratio screen 3.55
[2025-05-19 08:40] LABS: Troponin T High Sensitivity 1521 ng/L (<=14)
--- NOTE | 2025-05-19 08:46 | PCM.CONS.C ---
Assessment & Plan Assessment/Plan (1) Troponin level elevated: PLAN: - Patient with epigastric pain rating into chest, onset 4 months ago, with no anginal symptoms with exertion -Patient severely anemic with hemoglobin 5.5, FOBT (+) - HST: 45--> 44--> 756-->1521, EKG: Atrial sensed, ventricular paced rhythm with no change from baseline and no specific ischemic changes - Patient developed increasing oxygen requirements with volume overload during PRBC infusion, necessitating escalation to 6 L nasal cannula and IV diuretics, per nursing, patient was hypoxemic for multiple hours during infusion. - Patient currently chest pain-free, asymptomatic with heart rates 70s to 80s, BP: 120/70 - Type 2 LA/myocardial injury versus type I LA Patient experienced chest pain at roughly 4:30 PM, with flat troponin elevation at 5:50 PM and 8 PM (45&44). Troponin kinetics in the setting of ACS/chest pain would be expected to have significantly risen within 3 hours of chest pain episode. Etiology is possible secondary to transfusion volume overload causing supply/demand mismatch in the setting of severe anemia, superimposed on fixed obstructive coronary disease. Troponins drawn hours after infusion where IV diuretics and escalating oxygen requirements were needed showed significant rise. Chest pain is possibly cardiac, but predominantly patient cites epigastric pain. A late troponin elevation of this magnitude, would be rare stemming from a type I event from the index chest pain, and troponin is likely elevated in the setting of type 2 (supply/demand mismatch, superimposed on severe anemia and likely significant fixed coronary obstructions). However, type I LA still remains in the differential due to possible cardiac chest pain, cardiac risk factors, and significant troponin elevation. Recommendations - Consult GI for consideration of EGD/C-scope in setting of FOBT positivity and significant anemia - Continue aspirin 81 mg daily and atorvastatin 40 mg daily as able - Anemia treatment per GI team, recommend transfusion goal >~9 - Although patient would benefit at some point from ischemic assessment/angiography, patient is at very high risk of severe bleeding with this procedure and need for dual antiplatelet therapy; also patient is hemodynamically stable, without chest pain, or ischemic EKG changes - Above will be considered after stabilization and etiologic diagnosis of possible GI bleed/anemia - Echocardiogram for LV function/structural heart disease HPI Consult Data Date of Consult: 05/19/25 HPI Narrative Reason for Consultation: Troponin elevation HPI Narrative: LANA ARMSTRONG, is a 75 F with documented past medical history of diabetes mellitus type II, HTN, HLD, GERD, Carotid stenosis BL (unclear severity), status post PPM (unclear indication) who presented on 05/19/2025 to [facility] ED with complaints of chest pain. Patient states she has been having abdominal pain following fatty meals for over 4 months. These episodes happen 1-2 times per week. She admits that she begins to have abdominal pain and gastric symptoms, radiating into her lower/mid chest. She will drink much water or take a Tums which either relieve or improve her symptoms. She does not have chest pain without abdominal pain. She admits that the pain usually lasts 10 to 15 minutes after these meals. She has no exertional angina, and goes on 1 mile walks most days and denies cardiac symptoms. Patient was at [employer] yesterday, and after eating a sandwich at about 4:30 PM, she began to have this abdominal pain that radiates into the chest. It was not relieved by water and felt more severe than previous episodes, prompting her to call EMS at 5:21 PM. When patient arrived to the ED, blood pressure was 120-130s/50s- 70s, heart rates 70s to 80s. EKG notable for atrial sensed and ventricularly paced rhythm, unchanged from prior. Hemoglobin was noted be 5.5. D-dimer was positive, patient had CT chest showing no acute thromboembolic disease. Patchy multifocal parenchymal airspace opacity with innumerable solid nodules bilaterally measuring up to approximately 9 mm in the right upper lobe. Diffuse interlobular septal thickening. Patient was on 2 L nasal cannula on presentation. Initial troponin, 45 at 5:50 PM--> 44 at~8PM, 756 at 3:19 AM, 1521 at 7:43 AM. FOBT positive. Patient was transfused 2 units PRBC starting at 8 PM and ending around 1 AM and during infusion required escalation of oxygen requirements to 5-6L nasal cannula, and nursing noting lower oxygen saturation during infusion. Patient began to exhibit signs of volume overload, and was given IV diuretics around 1 AM. Patient seen at bedside, blood pressure 120/63, heart rate 81. Patient admits she was chest pain-free on admission and has had no recurrence of chest pain. She is currently asymptomatic feels her baseline. [facility] Medical History (Updated 05/19/25 @ 09:[address] Bryant Pereyra, DO) Depression Diabetes Vision problems Vascular disease H/O irritable bowel syndrome Hyperlipidemia Frequent headaches Glaucoma Cataracts, bilateral Partial small bowel obstruction Carotid stenosis, bilateral GERD (gastroesophageal reflux disease) Cardiac murmur Osteoarthritis HTN (hypertension) Vertigo Home Medications ?Medication ?Instructions ?Recorded ?Last Taken ?Type hydralazine 25 mg tablet 25 mg PO TID #270 tabs 10/16/24 05/18/25 Rx Allergy/AdvReac Type Severity Reaction Status Date / Time furosemide (From Lasix) Allergy Hives Verified 05/18/25 17:50 Sulfa (Sulfonamide Allergy Hives Verified 05/18/25 17:50 Antibiotics) Family History Mother Heart disease Hypertension Father Heart disease Hypertension Diabetes Brother Diabetes Cancer esophageal Surgical History H/O: hysterectomy History of pacemaker History of laparoscopy History of dilation and curettage Social History adopted: No household members: significant other number of children: 0 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 Physical Exam Narrative ?Gen: A&Ox3, NAD ?HEENT: Normocephalic/Atraumatic, MMM ?Neck: Supple, no JVD ?Pulm: Normal work of breathing, CTA bilaterally with no wheezes or crackles ?CV: RRR, normal S1/S2, no m/r/g ?Abd: Soft, NT/ND ?Extr: Warm to touch, no LE edema, distal pulses intact and symmetric in upper and lower extremities ?Neuro: No gross focal deficits, normal speech ?Psych: Normal affect, answers questions appropriately Objective Data Vital Signs: Vital Signs Temp Pulse Resp BP Pulse Ox O2 Del Method O2 Flow Rate 97.9 F 87 18 158/73 H 95 Nasal Cannula 5 05/19/25 04:32 05/19/25 06:52 05/19/25 04:32 05/19/25 04:32 05/19/25 04:32 05/19/25 08:14 05/19/25 04:32 Oxygen Flow Rate (L/min) 5 Oxygen Delivery Method Nasal Cannula Weight: 118 lb 9.739 oz Body Mass Index (BMI) 23.1 Intake & Output: Intake and Output for Last 24 Hours 05/17/25 05/18/25 05/19/25 23:59 23:59 23:59 Intake Total 1410 / 1410 550 / 550 Output Total 1050 / 1050 Balance 1410 / 1410 -500 / -500 Lab / Micro Data 05/19/25 07:43 05/19/25 07:43 Labs: Laboratory Results - last 24 hr 05/18/25 17:50: WBC 4.8, RBC 2.93 L, Hgb 6.2 L, Hct 22.7 L, MCV 77.5 L, MCH 21.2 L, MCHC 27.3 L, RDW Std Deviation 49.5 H, RDW Coeff of Rojelio 17.5 H, Plt Count 230, MPV 11.3, Immature Gran % (Auto) 0.400, Neut % (Auto) 60.9, Lymph % (Auto) 25.5, Gem % (Auto) 8.1, Eos % (Auto) 3.9, Baso % (Auto) 1.2 H, Absolute Neuts (auto) 2.9, Absolute Lymphs (auto) 1.23, Nucleated RBC % 0, PT 13.2, INR 1.0, APTT 28.9, D-Dimer Quant (PE/DVT) 0.96 H*, Sodium 139, Potassium 4.1, Chloride 105, Carbon Dioxide 22.1, Anion Gap 12, BUN 20 H, Creatinine 1.17, Estim Creat Clear Calc 33.60 L, Est GFR (MDRD) Non-Af 49 L, BUN/Creatinine Ratio 17.3, Glucose 236 H, Calcium 9.8, Total Bilirubin 0.34, AST 15, ALT 8, Alkaline Phosphatase 87, Troponin T High Sens 45 H, Total Protein 6.9, Albumin 4.2, Globulin 2.7, Albumin/Globulin Ratio 1.5, Lipase 45 05/18/25 18:30: Hgb 5.5 L* 05/18/25 19:44: Blood Type O NEGATIVE, Antibody Screen NEGATIVE, Crossmatch See Detail 05/18/25 20:08: Magnesium 1.8, Troponin T Hi Sens 2 Hr 44 H, NT pro BNP II 4683 H 05/19/25 02:51: Hgb 9.8 L, Hct 32.1 L 05/19/25 03:19: Troponin T High Sens 756 H* D 05/19/25 07:43: WBC 7.4, RBC 3.81 L, Hgb 9.1 L, Hct 29.9 L, MCV 78.5 L, MCH 23.9 L, MCHC 30.4 L D, RDW Std Deviation 47.7 H, RDW Coeff of Rojelio 16.8 H, Plt Count 202, MPV 11.6, Immature Gran % (Auto) 0.500, Neut % (Auto) 78.5 H, Lymph % (Auto) 11.2 L, Gem % (Auto) 7.3, Eos % (Auto) 1.8, Baso % (Auto) 0.7, Absolute Neuts (auto) 5.8, Absolute Lymphs (auto) 0.82 L, Nucleated RBC % 0, Sodium 137, Potassium 3.7, Chloride 103, Carbon Dioxide 23.5, Anion Gap 11, BUN 17, Creatinine 1.02, Estim Creat Clear Calc 34.76 L, Est GFR (MDRD) Non-Af 58 L, BUN/Creatinine Ratio 16.9, Glucose 149 H, Calcium 9.1, Troponin T High Sens 1521 H* D, Triglycerides 80, Cholesterol 177, LDL Cholesterol, Calc 112, VLDL Cholesterol 16, HDL Cholesterol 50, Cholesterol/HDL Ratio 3.55, TSH 3.040 Micro: Microbiology 05/19/25 01:05 Mucosa - Nasopharyngeal Coronavirus COVID-19 PCR - Final 05/19/25 01:05 Mucosa - Nasopharyngeal Respiratory Panel (PCR) - Final 05/19/25 02:00 Urine, Random Legionella Antigen - Final 05/19/25 02:00 Urine, Random Streptococcus pneumoniae Antigen (M - Final 05/18/25 18:57 Stool Stool Occult Blood (MAGDALENA) - Final Occult Blood Positive Cardiology Labs/Tests 05/18/25 17:50: WBC 4.8, RBC 2.93 L, Hgb 6.2 L, Hct 22.7 L, MCV 77.5 L, MCH 21.2 L, MCHC 27.3 L, Plt Count 230, MPV 11.3, Immature Gran % (Auto) 0.400, Neut % (Auto) 60.9, Lymph % (Auto) 25.5, Gem % (Auto) 8.1, Eos % (Auto) 3.9, Baso % (Auto) 1.2 H, Absolute Neuts (auto) 2.9, Nucleated RBC % 0, PT 13.2, INR 1.0, APTT 28.9, D-Dimer Quant (PE/DVT) 0.96 H*, Sodium 139, Potassium 4.1, Chloride 105, Carbon Dioxide 22.1, Anion Gap 12, BUN 20 H, Creatinine 1.17, Est GFR (MDRD) Non-Af 49 L, BUN/Creatinine Ratio 17.3, Glucose 236 H, Calcium 9.8, Total Bilirubin 0.34 05/18/25 18:30: Hgb 5.5 L* 05/18/25 20:08: Magnesium 1.8 05/19/25 02:51: Hgb 9.8 L, Hct 32.1 L 05/19/25 07:43: WBC 7.4, RBC 3.81 L, Hgb 9.1 L, Hct 29.9 L, MCV 78.5 L, MCH 23.9 L, MCHC 30.4 L D, Plt Count 202, MPV 11.6, Immature Gran % (Auto) 0.500, Neut % (Auto) 78.5 H, Lymph % (Auto) 11.2 L, Gem % (Auto) 7.3, Eos % (Auto) 1.8, Baso % (Auto) 0.7, Absolute Neuts (auto) 5.8, Nucleated RBC % 0, Sodium 137, Potassium 3.7, Chloride 103, Carbon Dioxide 23.5, Anion Gap 11, BUN 17, Creatinine 1.02, Est GFR (MDRD) Non-Af 58 L, BUN/Creatinine Ratio 16.9, Glucose 149 H, Calcium 9.1, Triglycerides 80, Cholesterol 177, VLDL Cholesterol 16, HDL Cholesterol 50, Cholesterol/HDL Ratio 3.55 Rhythm: EKG: ECHO: Stress Test: Cardiac Cath: PCI: CT Surgery: Holter monitor: EPS: PPM: CXR: Chest CT Scan: Radiography Diagnostic Testing: Radiology Impression Chest X-Ray 05/18/25 18:00 IMPRESSION: Bibasilar opacities likely subsegmental atelectasis however pneumonia or aspiration not entirely excluded. Reading Location: [id number] Abdomen/Pelvis CT 05/18/25 19:27 IMPRESSION: No acute CT process. Chronic changes as detailed above. Reading Location: [facility] Chest CTA 05/18/25 19:27 IMPRESSION: No acute thromboembolic disease. Patchy multifocal parenchymal airspace opacity with innumerable solid nodules bilaterally measuring up to approximately 9 mm in the right upper lobe. Diffuse interlobular septal thickening. Inflammatory, metastatic, neoplastic etiologies must be considered. Reading [facility] Risk Score for UA/STEMI Assesmment (YES = 1) Risk Stratification Applicable: No
--- NOTE | 2025-05-19 10:44 | CASEMGMT ---
Social Work SW completed a SDOH with the patient. Patient uses a cab. Patient currently not driving due to cataracts. Patient does not have a car. RENALDO provided the patient with [facility] transport phone number. Patient lives with Sergey. Sergey does not drive. Patient has 2 brothers one that lives in [place] and one in [place]. Aaron Salinas
--- NOTE | 2025-05-19 11:00 | CASEMGMT ---
RN CM Face to Face with patient for initial transition planning/care coordination assessment. RN CM introduced self and role at [facility]. Patient lying in bed, alert and oriented. Patient willing to participate in assessment and is able to answer all questions appropriately. Care providers, pharmacy, and demographics verified. Strata: 2 PCP: Rosie Specialists: none Preferred Pharmacy: [facility] Insurance: [facility] Prescription Benefit: none Living Will/HPOA: none LNOK: boyfriend Living Arrangements: Patient lives with boyfriend in a 2 story duplex. Patient is independent and able to ambulate stairs. Transportation: friend, public DME/HHC: Patient denies DME in the home. No previous HHC or SNF Patient wishes to discharge home, denies need for home health at this time. Patient states she has no further needs or concerns at this time. CM to follow for discharge planning needs that may arise. Disposition Plan: Patient to discharge home with family support and follow-up plans in place. Alexandria BRUMFIELD, RN, CM
[2025-05-19] MEDS: Azithromycin 500 MG in 0.9% Normal Saline (250mL Bag) 250 ML 250 MG IV (11:12)
[2025-05-19 15:07] LABS: Hematocrit 30.3 % (37-47); Hemoglobin 9.3 g/dL (12.0-15.0)
--- NOTE | 2025-05-19 17:58 | EX.PCM.CON.G ---
HPI Consult Data Date of Consult: 05/19/25 HPI Narrative Reason for Consultation: Anemia HPI Narrative: The patient is a 75-year-old female with a history of diabetes mellitus type II, HTN, HLD, GERD, bilateral carotid stenosis, and status post permanent pacemaker implantation . She was brought to the Emergency Department by EMS for acute onset chest pain. Chief Complaint (CC): Chest pain started 15 minutes prior to arrival while eating at [employer]. History of Present Illness (HPI): Chest Pain: The patient reports this pain occurs frequently after eating at home for the past month, but the current episode was more persistent and not relieved by drinking water. Pain described as sharp, located on the left side below the clavicle, with mild shortness of breath. Associated Symptoms: Endorses mild shortness of breath (SOB) with the pain and also with exertion (climbing stairs). Denies dizziness, lightheadedness, near syncope, or syncope. GI Symptoms: Endorses occasional burning chest pain associated with gastric reflux. Denies obvious external GI bleeding (brown/black stool, hematuria). Stool occult blood was positive. Denials: Denies history of chronic cardiac or lung disease. Denies recent EGD or colonoscopy. Vitals (by EMS): RR 24, BP 168/82, HR 100/min. Laboratory Findings: Severe anemia noted with initial hemoglobin (Hgb) of 5.5 g%. Troponin levels trended: 45 ?right arrow 44 ?right arrow 756 ?right arrow 1521. Interventions: One unit of PRBC started due to anemia. Developed increasing oxygen requirements (escalated to 6 L nasal cannula) and volume overload during PRBC infusion, necessitating IV diuretics. Patient was hypoxemic for multiple hours during infusion. Diagnostic Findings: EKG: Atrial sensed, ventricular paced rhythm with no change from baseline and no specific ischemic changes. 2D Echo: Displayed a dilated left ventricular apex with apical hypokinesis and an LVEF of 35-40%. I was consulted for endoscopic evaluation of severe anemia in the setting of possible type II myocardial infarction. [facility] Medical History Depression Diabetes Vision problems Vascular disease H/O irritable bowel syndrome Hyperlipidemia Frequent headaches Glaucoma Cataracts, bilateral Partial small bowel obstruction Carotid stenosis, bilateral GERD (gastroesophageal reflux disease) Cardiac murmur Osteoarthritis HTN (hypertension) Vertigo Home Medications ?Medication ?Instructions ?Recorded ?Last Taken ?Type hydralazine 25 mg tablet 25 mg PO TID #270 tabs 10/16/24 05/18/25 Rx Allergy/AdvReac Type Severity Reaction Status Date / Time furosemide (From Lasix) Allergy Hives Verified 05/18/25 17:50 Sulfa (Sulfonamide Allergy Hives Verified 05/18/25 17:50 Antibiotics) Family History Mother Heart disease Hypertension Father Heart disease Hypertension Diabetes Brother Diabetes Cancer esophageal Surgical History H/O: hysterectomy History of pacemaker History of laparoscopy History of dilation and curettage Social History adopted: No household members: significant other number of children: 0 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 and animals: No sexually active: Yes Smoking Status: Never smoker alcohol intake: current alcohol intake frequency: holidays/special occasions only substance use type: does not use caffeine: No what type of physical activity do you participate in: walking frequency: daily seatbelt use: always do you feel safe at home: Yes ROS Constitutional Constitutional: Denies fatigue, fever(s), poor appetite, weight gain or weight loss Gastrointestinal Gastrointestinal: Denies belching, bloating, change in bowel habits, change in stool character, chewing difficulty, coffee ground emesis, constipation, cramping, diarrhea, dyspepsia, dysphagia, early satiety, excessive flatus, fecal incontinence, heartburn, hematemesis, hematochezia, hemorrhoids, loose stools, melena, nausea, odynophagia, rectal bleeding, tenesmus, vomiting or weight changes Physical Exam Const alert, oriented x3, no apparent distress and healthy appearing General Appearance: cooperative GI normal to inspection, nondistended, normoactive bowel sounds, soft to palpation, non-tender and non-distended Percussion: normal to percussion Rectal Exam: deferred Lab / Micro Data 05/19/25 14:27 05/19/25 07:43 Labs: Laboratory Results - last 24 hr 05/18/25 17:50: WBC 4.8, RBC 2.93 L, Hgb 6.2 L, Hct 22.7 L, MCV 77.5 L, MCH 21.2 L, MCHC 27.3 L, RDW Std Deviation 49.5 H, RDW Coeff of Rojelio 17.5 H, Plt Count 230, MPV 11.3, Immature Gran % (Auto) 0.400, Neut % (Auto) 60.9, Lymph % (Auto) 25.5, [place] % (Auto) 8.1, Eos % (Auto) 3.9, Baso % (Auto) 1.2 H, Absolute Neuts (auto) 2.9, Absolute Lymphs (auto) 1.23, Nucleated RBC % 0, PT 13.2, INR 1.0, APTT 28.9, D-Dimer Quant (PE/DVT) 0.96 H*, Sodium 139, Potassium 4.1, Chloride 105, Carbon Dioxide 22.1, Anion Gap 12, BUN 20 H, Creatinine 1.17, Estim Creat Clear Calc 33.60 L, Est GFR (MDRD) Non-Af 49 L, BUN/Creatinine Ratio 17.3, Glucose 236 H, Calcium 9.8, Total Bilirubin 0.34, AST 15, ALT 8, Alkaline Phosphatase 87, Troponin T High Sens 45 H, Total Protein 6.9, Albumin 4.2, Globulin 2.7, Albumin/Globulin Ratio 1.5, Lipase 45 05/18/25 18:30: Hgb 5.5 L* 05/18/25 19:44: Blood Type O NEGATIVE, Antibody Screen NEGATIVE, Crossmatch See Detail 05/18/25 20:08: Magnesium 1.8, Troponin T Hi Sens 2 Hr 44 H, NT pro BNP II 4683 H 05/19/25 02:51: Hgb 9.8 L, Hct 32.1 L 05/19/25 03:19: Troponin T High Sens 756 H* D 05/19/25 07:43: WBC 7.4, RBC 3.81 L, Hgb 9.1 L, Hct 29.9 L, MCV 78.5 L, MCH 23.9 L, MCHC 30.4 L D, RDW Std Deviation 47.7 H, RDW Coeff of Rojelio 16.8 H, Plt Count 202, MPV 11.6, Immature Gran % (Auto) 0.500, Neut % (Auto) 78.5 H, Lymph % (Auto) 11.2 L, [place] % (Auto) 7.3, Eos % (Auto) 1.8, Baso % (Auto) 0.7, Absolute Neuts (auto) 5.8, Absolute Lymphs (auto) 0.82 L, Nucleated RBC % 0, Sodium 137, Potassium 3.7, Chloride 103, Carbon Dioxide 23.5, Anion Gap 11, BUN 17, Creatinine 1.02, Estim Creat Clear Calc 34.76 L, Est GFR (MDRD) Non-Af 58 L, BUN/Creatinine Ratio 16.9, Glucose 149 H, Calcium 9.1, Troponin T High Sens 1521 H* D, Triglycerides 80, Cholesterol 177, LDL Cholesterol, Calc 112, VLDL Cholesterol 16, HDL Cholesterol 50, Cholesterol/HDL Ratio 3.55, TSH 3.040 05/19/25 14:27: Hgb 9.3 L, Hct 30.3 L 05/19/25 16:31: POC Glucose 127 H Micro: Microbiology 05/19/25 01:05 Mucosa - Nasopharyngeal Coronavirus COVID-19 PCR - Final 05/19/25 01:05 Mucosa - Nasopharyngeal Respiratory Panel (PCR) - Final 05/19/25 02:00 Urine, Random Legionella Antigen - Final 05/19/25 02:00 Urine, Random Streptococcus pneumoniae Antigen (M - Final 05/18/25 18:57 Stool Stool Occult Blood (MAGDALENA) - Final Occult Blood Positive Imaging Radiology Impression Chest X-Ray 05/18/25 18:00 IMPRESSION: Bibasilar opacities likely subsegmental atelectasis however pneumonia or aspiration not entirely excluded. Reading Location: [facility] Abdomen/Pelvis CT 05/18/25 19:27 IMPRESSION: No acute CT process. Chronic changes as detailed above. Reading Location: [facility] Chest CTA 05/18/25 19:27 IMPRESSION: No acute thromboembolic disease. Patchy multifocal parenchymal airspace opacity with innumerable solid nodules bilaterally measuring up to approximately 9 mm in the right upper lobe. Diffuse interlobular septal thickening. Inflammatory, metastatic, neoplastic etiologies must be considered. Reading Location: [facility] Echocardiogram 05/19/25 00:21 Interpretation Summary Moderately reduced LV systolic function, with ejection fraction: 35 to 40% Dilated and hypokinetic left ventricular apex Normal right ventricular systolic function Mild aortic regurgitation Ordering Physician: Elpidio Pace Referring Physician: Gill Velez Performed By: Benito Robles RDCS Assessment & Plan Assessment/Plan (1) GI (gastrointestinal bleed): (2) Anemia: (3) Chest pain, atypical: (4) Troponin level elevated: PLAN: Assessment The patient presents with severe anemia likely due to chronic GI blood loss, leading to a demand ischemia (Type 2 Myocardial Infarction) as evidenced by the significant troponin leak and new echocardiogram findings of apical hypokinesis and reduced LVEF (35-40%). The initial chest pain description (sharp, pleuritic quality, post-prandial) is slightly atypical for standard exertional angina but the context of severe anemia causing myocardial oxygen supply/demand mismatch clarifies the cardiac injury. The patient experienced volume overload and worsening respiratory distress during PRBC transfusion, likely due to underlying reduced cardiac function (newly discovered LVEF 35-40%. She is currently stable after IV diuresis and PRBC infusion, with resolved chest pain and vital signs within normal limits (HR 70s-80s, BP 120/70) Plan Cardiology: Continue monitoring. Cardiology and primary team initiate guideline-directed interventional and noninterventional medical therapy (GDMT) for newly diagnosed HFrEF (LVEF 35-40% Gastroenterology: Proceed with urgent EGD and potential colonoscopy to identify and treat the source of GI bleed causing severe anemia. Hematology: Continue to monitor Hgb levels. Determine the need for further PRBC transfusions based on Hgb levels and clinical stability, managing volume carefully with diuresis. Portions of this note were generated using voice recognition software (Dragon/AI Dictation). I have reviewed the contents and every effort has been made to ensure accuracy; however, inadvertent errors in grammar, spelling, punctuation, or word choice may occur, that were not noted before signing the document and should not alter the intended clinical meaning. Charges/Coding Visit Charges Inpatient E&M: 71283 Init Hosp L3
--- NOTE | 2025-05-19 19:11 | PN.HOSP_ITS ---
Reason for Visit Chief Complaint: Chest pain and shortness of breath after eating. No dysphagia Subjective Subjective Patient was seen and examined today, I discussed her care with gastroenterology, I also talked with cardiology about her care. The plan is to proceed with an EGD and a colonoscopy tomorrow to make sure the patient does not have any active bleeding, she will then need to undergo a cardiac catheterization to rule out occlusive coronary disease. Patient had questions about the EGD and colonoscopy which I went over with her this afternoon. Patient states she has never had a colonoscopy before. Patient appears mildly confused at times. Objective Data Objective Data Vital Signs: Vital Signs Temp Pulse Resp BP Pulse Ox O2 Del Method O2 Flow Rate 98.9 F 89 21 H 126/53 H 96 Nasal Cannula 2 05/19/25 15:00 05/19/25 15:00 05/19/25 15:00 05/19/25 16:28 05/19/25 16:34 05/19/25 16:34 05/19/25 16:34 Oxygen Flow Rate (L/min) 2 Oxygen Delivery Method Nasal Cannula Weight: 53.8 kg Body Mass Index (BMI) 23.1 Intake & Output: Intake and Output for Last 24 Hours 05/17/25 05/18/25 05/19/25 23:59 23:59 23:59 Intake Total 1410 / 1410 1100 / 1100 Output Total 1050 / 1050 Balance 1410 / 1410 50 / 50 Lab / Micro Data 05/20/25 06:41 05/19/25 07:43 Labs: Laboratory Results - last 24 hr 05/18/25 17:50: Sodium 139, Potassium 4.1, Chloride 105, Carbon Dioxide 22.1, Anion Gap 12, BUN 20 H, Creatinine 1.17, Estim Creat Clear Calc 33.60 L, Est GFR (MDRD) Non-Af 49 L, BUN/Creatinine Ratio 17.3, Glucose 236 H, Calcium 9.8, Total Bilirubin 0.34, AST 15, ALT 8, Alkaline Phosphatase 87, Total Protein 6.9, Albumin 4.2, Globulin 2.7, Albumin/Globulin Ratio 1.5 05/18/25 19:44: Blood Type O NEGATIVE, Antibody Screen NEGATIVE, Crossmatch See Detail 05/18/25 20:08: Magnesium 1.8, Troponin T Hi Sens 2 Hr 44 H, NT pro BNP II 4683 H 05/19/25 02:51: Hgb 9.8 L, Hct 32.1 L 05/19/25 03:19: Troponin T High Sens 756 H* D 05/19/25 07:43: WBC 7.4, RBC 3.81 L, Hgb 9.1 L, Hct 29.9 L, MCV 78.5 L, MCH 23.9 L, MCHC 30.4 L D, RDW Std Deviation 47.7 H, RDW Coeff of Rojelio 16.8 H, Plt Count 202, MPV 11.6, Immature Gran % (Auto) 0.500, Neut % (Auto) 78.5 H, Lymph % (Auto) 11.2 L, [place] % (Auto) 7.3, Eos % (Auto) 1.8, Baso % (Auto) 0.7, Absolute Neuts (auto) 5.8, Absolute Lymphs (auto) 0.82 L, Nucleated RBC % 0, Sodium 137, Potassium 3.7, Chloride 103, Carbon Dioxide 23.5, Anion Gap 11, BUN 17, Creatinine 1.02, Estim Creat Clear Calc 34.76 L, Est GFR (MDRD) Non-Af 58 L, BUN/Creatinine Ratio 16.9, Glucose 149 H, Calcium 9.1, Troponin T High Sens 1521 H* D, Triglycerides 80, Cholesterol 177, LDL Cholesterol, Calc 112, VLDL Cholesterol 16, HDL Cholesterol 50, Cholesterol/HDL Ratio 3.55, TSH 3.040 05/19/25 14:27: Hgb 9.3 L, Hct 30.3 L 05/19/25 16:31: POC Glucose 127 H Micro: Microbiology 05/19/25 01:05 Mucosa - Nasopharyngeal Coronavirus COVID-19 PCR - Final 05/19/25 01:05 Mucosa - Nasopharyngeal Respiratory Panel (PCR) - Final 05/19/25 02:00 Urine, Random Legionella Antigen - Final 05/19/25 02:00 Urine, Random Streptococcus pneumoniae Antigen (M - Final 05/18/25 18:57 Stool Stool Occult Blood (MAGDAL[facility]) - Final Occult Blood Positive Radiography Diagnostic Testing: Radiology Impression Abdomen/Pelvis CT 05/18/25 19:27 IMPRESSION: No acute CT process. Chronic changes as detailed above. Reading Location: [facility] Chest CTA 05/18/25 19:27 IMPRESSION: No acute thromboembolic disease. Patchy multifocal parenchymal airspace opacity with innumerable solid nodules bilaterally measuring up to approximately 9 mm in the right upper lobe. Diffuse interlobular septal thickening. Inflammatory, metastatic, neoplastic etiologies must be considered. Reading Location: [facility] Echocardiogram 05/19/25 00:21 Interpretation Summary Moderately reduced LV systolic function, with ejection fraction: 35 to 40% Dilated and hypokinetic left ventricular apex Normal right ventricular systolic function Mild aortic regurgitation Ordering Physician: Elpidio Pace Referring Physician: Gill Velez Performed By: Benito Robles RDCS Physical Exam Const alert, oriented x3 and no apparent distress Constitutional Narrative: Patient exhibits some mild confusion General Appearance: cooperative, well kempt and well developed Orientation / Consciousness: awake, oriented to person, oriented to place and oriented to time HEENT normocephalic, head/scalp atraumatic and moist oral mucous membranes Eyes PERRL, EOMs intact bilaterally and conjunctivae normal Neck supple, no JVD, thyroid normal and no carotid bruits General: trachea midline Resp normal respiratory effort, no retractions, no use of accessory muscles and clear to auscultation bilaterally Auscultation: Negative for rales, rhonchi or wheezes Cardio regular rate, regular rhythm, S1 normal heart sound, S2 normal heart sound, no murmurs, no rub and no gallops GI normal to inspection, nondistended, normoactive bowel sounds, soft to palpation, non-tender and non-distended Extremity no clubbing, cyanosis or edema Skin no rashes or lesions noted General Skin Exam: no breakdown Neuro oriented x3, CN's II-XII intact bilaterally, no focal motor deficits and no sensory deficits noted Sensorium / Orientation: awake and alert Speech: speech normal Psych Psych Narrative: Patient exhibits mild confusion Assessment & Plan Assessment/Plan (1) Anemia: PLAN: Plan 1. Anemia requiring blood transfusion-etiology unclear at this point, patient will undergo a colonoscopy and an EGD tomorrow #2 type II ME-patient's EKG cannot be interpreted due to the fact she has a pacemaker, cardiology is participating in her care, she may need further workup regarding her MRI. #3 mild cognitive impairment-this could be a result of early dementia #4 essential hypertension-patient will remain on her current medications Total clinical time spent by myself addressing the patient's medical issues, reviewing all of her data, and collaborating with patient's care team: 35-minute Charges/Coding Visit Charges Inpatient E&M: 63838 Subs Hosp L2
[2025-05-19 20:54] LABS: Hematocrit 29.3 % (37-47); Hemoglobin 9.0 g/dL (12.0-15.0)
[2025-05-19] MEDS: Electrolyte Solution/Peg's 4000 ML PO (22:42)
[2025-05-20] VITALS (17 sets, daily range): BP systolic 116–156; BP diastolic 54–95; PULSE 68–93; RESP 16–20; TEMP 36.1–36.7; O2SAT 94–100; BMI 22.8
[2025-05-20 07:00] LABS: Hematocrit 34.4 % (37-47); Hemoglobin 10.4 g/dL (12.0-15.0); Immature Granulocytes Count 0.010 X10^3/uL (0.0-0.0); Mean Corp Hgb Conc 30.2 g/dL (32-36); Mean Corpuscular Volume 78.0 fL (81-99); Mean Platelet Vol. 11.5 fl (6.2-12.0); NRBC Flagged by Analyzer 0 % (0-5); Platelet Count 227 K/mm3 (150-450); RBC Distribution Width CV 17.3 % (11.6-14.6); RBC Distribution Width SD 48.8 fl (35.1-43.9); Red Blood Count 4.41 M/mm3 (4.2-5.4); White Blood Count 4.2 K/mm3 (4.4-11.0)
[2025-05-20 07:27] LABS: Prothrombin Time (Protime)PT. 14.9 SECONDS (11.7-14.9)
[2025-05-20 07:28] LABS: Partial Thromboplast Time 31.6 Seconds (24.1-36.2)
[2025-05-20] MEDS: Pantoprazole Sodium 40 MG in 0.9% Normal Saline (100mL MB+) 100 ML 300 MG IV ×2 (08:04→20:29)
[2025-05-20 08:16] LABS: Cholesterol 181 mg/dL (<=200); Low Density Lipoprotein Calc. 111 mg/dL; Triglycerides 100 mg/dL; Very Low Density Lipoprotein 20 mg/dL (5-40); cholesterol:hdl ratio screen 3.47
[2025-05-20] MEDS: Azithromycin 500 MG in 0.9% Normal Saline (250mL Bag) 250 ML 250 MG IV (11:16)
--- NOTE | 2025-05-20 15:15 | NURSING ---
Patient left unit for EGD and colonoscopy with Dr. Butterfield
[2025-05-20] MEDS: 0.9% Normal Saline (1000mL) 1,000 ML 15 ML IV (15:24)
--- NOTE | 2025-05-20 15:55 | PRE.ANES_ITS ---
ASA Classification* ASA Classification ASA Classification: 3 and E Assessment & Plan Anesthesia* Anesthesia Assessment Anesthesia Assessment: Discussed sedation and/or anesthesia options, risks, benefits, and alternatives with patient/parents/legal guardian/POA. Questions invited. The patient/parents/legal guardian/POA seems to understand and agrees to proceed with anesthesia plan. Reviewed the physical assessment, medical history, allergy history and patient home medications list prior to surgery/procedure/anesthetic and documented any changes. Performed airway and anesthesia risk assessments. Anesthesia Type Anesthesia Type: MAC History Source History Obtained from:: Patient and Chart Anesthesia Focused Assessment* Temperature: 98.0 F Pulse Rate: 90 Blood Pressure: 141/72 Respiratory Rate: 16 Pulse Ox: 95 Oxygen Delivery Method: Room Air Oxygen Flow Rate (L/min): 2 Airway Assessment Mouth opens: >3 cm Mallampati Score: II Teeth Condition: Missing (Poor dentition) Neck Range of motion (ROM): Limited ROM Labs Anesthesia Preop lab: CBC WBC, (4.4-11.0) 4.2 K/mm3 L Today, 06:41 RBC, (4.2-5.4) 4.41 M/mm3 Today, 06:41 Hgb, (12.0-15.0) 10.4 g/dL L Today, 06:41 Hct, (37-47) 34.4 % L Today, 06:41 Plt Count, (150-450) 227 K/mm3 Today, 06:41 CHEMISTRY Potassium, (3.3-5.1) 3.7 mmol/L 05/19/25, 07:43 Sodium, (133-145) 137 mmol/L 05/19/25, 07:43 Magnesium, (1.5-2.2) 1.8 mg/dL 05/18/25, 20:08 Phosphorus, (2.5-4.9) 2.2 mg/dL L 08/11/22, 06:05 BUN, (4-19) 17 mg/dL 05/19/25, 07:43 Creatinine, (0.70-1.20) 1.02 mg/dL 05/19/25, 07:43 Glucose, (70-99) 149 mg/dL H 05/19/25, 07:43 POC Glucose, (74-106) 99 mg/dL Today, 12:20 TSH, (0.300-4.200) 2.970 uIU/mL Today, 06:41 COAG PT, (11.7-14.9) 14.9 SECONDS Today, 06:41 Pre-Assessment Diagnosis/Proposed Procedure Planned Operative Procedure(s): EGD and colonoscopy Anesthesia History 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 When Was Last Pacemaker Check yes, unknown last check 05/19/25 20:26 QUESTION #4 FULL TEXT: You/Your Family Experience fever (hyperthermia) with Anesthesia Last Oral Intake Last Oral intake: Last Oral Intake NPO since Meds taken in AM with sips of water? Meds patient instructed to take am of surgery PONV PONV - sales planning analyst: PONV - sales planning analyst Female HX of Motion Sickness HX of N/V After Surgery Non-Smoker Duration of Surgery greater than 60 minutes Number of Risk Factors PONV Score Height & Weight Height & Weight: Anesthesia: Height & Weight Height 5 ft 05/19/25 20:30 Weight: 53 kg 05/20/25 03:37 Body Mass Index (BMI) 22.8 05/20/25 03:37 Respiratory Assessment Respiratory Assessment - sales planning analyst: Respiratory Tract Infection Hx - sales planning analyst Hx Respiratory Tract Infection No 05/19/25 20:26 STOP Sleep Apnea STOP Sleep Apnea - sales planning analyst: STOP Sleep Apnea - sales planning analyst Hx Hypertension Yes 05/19/25 14:35 Hx Sleep Apnea No 05/19/25 00:22 CPAP No 05/19/25 00:22 BIPAP Do you snore loudly (louder Yes 05/19/25 00:22 than talking or can be heard Do you often feel tired/ Yes 05/19/25 00:22 fatigued/ sleepy during daytime? Has anyone observed you stop No 05/19/25 00:22 breathing during sleep? STOP Results Positive 05/19/25 00:22 QUESTION #5 FULL TEXT : Do you snore loudly (louder than talking or can be heard through closed doors)? 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 Specify any problems Hx of Preganancy in last 3 No 05/19/25 00:22 Months Nurse Filling Out Transfusion [id number] 05/19/25 00:22 & Questions: Date: 05/19/25 05/19/25 00:22 Time: 00:38 05/19/25 00:22 Patient unable to answer at this time (ie. confused, unrespo /Reproduction History /Reproductive History - sales planning analyst: /Reproductive Hx- sales planning analyst Hx Now No 05/19/25 20:26 Gestational Age (in weeks): EDC: Hx Hx Para Hx Section SAB No 05/19/25 20:26 Does the father of the baby or his family experience fever w Father of the baby Malignant Hypertension history comment Active Medications Active Medications: Current Medications Generic Name Dose Route Start Last Admin Trade Name Freq PRN Reason Stop Dose Admin Acetaminophen 650 mg 05/19/25 00:50 Acetaminophen 325 Mg Tablet PO Q6H PRN PRN Pain 1-10 Or Fever>100.7 Albuterol/Ipratropium 3 ml 05/19/25 00:19 Ipratropium/Albuterol Sulfate 3 Ml Ampul.Neb INHALATION Q4H PRN PRN SHORTNESS OF BREATH Atorvastatin Calcium 40 mg 05/19/25 07:00 05/19/25 20:57 Atorvastatin Calcium 40 Mg Tablet PO 40 mg QHS SILVANA Administration Hydralazine HCl 25 mg 12/08/25 08:00 05/20/25 11:46 Hydralazine 25 Mg Tablet PO Not Given TIDCM SILVANA Protocol Sodium Chloride 250 mls @ 15 mls/hr 05/19/25 00:33 IV .[id number] PRN Saline Flush Sodium Chloride 250 mls @ 15 mls/hr 05/19/25 00:33 IV .[id number] PRN Additional IVPB Infusion Pantoprazole Sodium 40 mg/ 100 mls @ 300 mls/hr 05/19/25 00:50 05/20/25 08:39 Sodium Chloride IV Infused Q12 SILVANA Infusion Ceftriaxone Sodium 1 gm in 50 mls @ 100 mls/hr 05/19/25 06:45 05/20/25 11:16 Rocephin IV Infused DAILY SILVANA Infusion Azithromycin 500 mg/ Sodium 250 mls @ 250 mls/hr 05/19/25 10:00 05/20/25 12:46 Chloride IV Infused Q24 SILVANA Infusion Sodium Chloride 1,000 mls @ 15 mls/hr 05/20/25 15:15 05/20/25 15:24 IV 15 mls/hr .Q48H SILVANA Administration Losartan Potassium 25 mg 05/19/25 10:00 05/19/25 08:58 Losartan Potassium 25 Mg Tablet PO 25 mg DAILY SILVANA Administration Metoprolol Succinate 25 mg 05/19/25 06:30 05/19/25 06:52 Metoprolol(Xl)Succ 25 Mg Tablet PO 25 mg DAILY SILVANA Administration Protocol Nitroglycerin 0 inch 05/19/25 06:27 Nitroglycerin Oint 1 Inch Packet TD Q6 PRN chest pain Protocol Senna/Docusate Sodium 2 tablet 05/19/25 00:50 Senna/Docusate Sodium 1 Tablet PO BID PRN PRN Constipation Sodium Chloride 10 - 40 ml 05/19/25 00:33 05/19/25 22:31 0.9% Saline Lock 10 Ml Syringe IV 10 ml UD PRN Administration SALINE FLUSH PFSH Medical History Depression Diabetes Vision problems Vascular disease H/O irritable bowel syndrome Hyperlipidemia Frequent headaches Glaucoma Cataracts, bilateral Partial small bowel obstruction Carotid stenosis, bilateral GERD (gastroesophageal reflux disease) Cardiac murmur Osteoarthritis HTN (hypertension) Vertigo Home Medications ?Medication ?Instructions ?Recorded ?Last Taken ?Type hydralazine 25 mg tablet 25 mg PO TID #270 tabs 10/1605/18/25 Rx Allergy/AdvReac Type Severity Reaction Status Date / Time furosemide (From Lasix) Allergy Hives Verified 05/18/25 17:50 Sulfa (Sulfonamide Allergy Hives Verified 05/18/25 17:50 Antibiotics) Family History Mother Heart disease Hypertension Father Heart disease Hypertension Diabetes Brother Diabetes Cancer esophageal Surgical History H/O: hysterectomy History of pacemaker History of laparoscopy History of dilation and curettage Social History adopted: No household members: significant other number of children: 0 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
--- NOTE | 2025-05-20 16:15 | COLBX_PTH ---
PATIENT: LANA ARMSTRONG LOC: [facility] U#:[id number] AGE/SX: 75/F ROOM: [facility] RE05/18/[address]: Dr. Mateo Crabtree DO : 1950 BED: 1 DIS: 05/22/2025 SPEC #: [id number] RECD: 05/21/25 08:03 STATUS: JAMES REKevin #: [id number] JULIAN: 05/20/25 16:[address]: Lukas Butterfield DEPT: SURGICAL PATHOLOGY RECD BY: Chapo Ye ENTERED: 05/21/25 10:22 SP TYPE: COLON BX OTHR DR: MD Dr. Bryant Jones DO Dr. Mark Tereletsky, DO Dr. Prakash Chand, MD Heather Evans, NP-C GLENN KeyesC ARUN Colmenares Tissues: A - Duodenum, NOS B - SPLENIC FLEXURE C - Cecum, NOS Procedures: Immunohistochemical Stains Surgery Specimen Level IV IHC Stain ADDITIONAL HEADER OPERATION: Colonoscopy with polypectomy and tattoo marking, EGD with biopsy PRE-OP DIAGNOSIS: Anemia, polyp, cecal mass TISSUE SUBMITTED: A- Duodenal polyps, B- Splenic flexure polyp, C- Cecal mass biopsy MICROSCOPIC DIAGNOSIS A. Small intestine, duodenum, biopsy: - Normal villous architecture with Placido gland hyperplasia and gastric mucin cell metaplasia, suggestive of peptic injury. - Negative for increased intraepithelial lymphocytes. B. Colon, splenic flexure, polyp, biopsy: - Tubular adenoma. C. Colon, cecum, mass, biopsy: - Adenocarcinoma. - IHC for mismatch repair proteins (MMR) is pending and will be reported in an addendum. MICROSCOPIC DESCRIPTION Slides are reviewed. GROSS DESCRIPTION A. Received in fixative is one container labeled with the patient's name and designated Duodenal polyps. The specimen consists of two irregular fragments of wharton tissue that measure 0.5 and 0.7 cm. The specimen is totally submitted in one cassette. B. Received in fixative is one container labeled with the patient's name and designated Splenic flexure polyp. The specimen consists of one irregular fragment of wharton tissue that measures 0.4 cm. The specimen is totally submitted in one cassette. C. Received in fixative is one container labeled with the patient's name and designated Cecal mass biopsy. The specimen consists of multiple irregular fragments of wharton tissue that in aggregate measure 1.2 x 0.7 x 0.1 cm. The specimen is totally submitted in one cassette. MD 05/21/2025 CPT:[id number] ADDENDUM ADDENDUM ADDENDUM ADDENDUM ADDENDUM ADDENDUM ADDENDUM ADDENDUM ADDENDUM ADDENDUM ADDENDUM ADDENDUM ADDENDUM ADDENDUM ADDENDUM ADDENDUM ADDENDUM ADDENDUM ADDENDUM ADDENDUM ADDENDUM ADDENDUM ADDENDUM ADDENDUM ADDENDUM 05/26/2025 14:40 ADDENDUM 05/26/2025 14:40 ADDENDUM 05/26/2025 14:40 ADDENDUM 05/26/2025 14:40 ADDENDUM 05/26/2025 14:40 This addendum is to report the IHC for mismatch repair proteins on part C: C) Mismatch Repair Protein (MMR) Nuclear Expression by IHC: ? MLH1: ?Present/intact ? PMS2: ?Present/intact ? MSH2: ?Present/intact ? MSH6: ?Present/intact IHC Interpretation: No loss of nuclear expression of MMR proteins: low probability of microsatellite instability-high (MSI-H)# # There are exceptions to the above IHC interpretations. These results should not be considered in isolation, and clinical correlation with genetic counseling is recommended to assess the need for germline testing. All controls show appropriate reactivity. These tests were developed and their performance characteristics determined by [facility]. They may not have been cleared or approved by the U.[place]. Food and Drug Administration. The FDA has determined that such clearance or approval is not necessary. The above immunohistochemical markers and/or special?stains have been reviewed by the Pathologist.
[2025-05-20] MEDS: Lactated Ringers 1,000 ML 1000 ML IV (17:18)
--- NOTE | 2025-05-20 17:46 | OP.EGD_ITS ---
Patient Name: Angelica Toribio Procedure Date: 05/20/2025 5:08 PM Date of : 1950 Age: 75 Procedure: Upper GI endoscopy Indications: Iron deficiency anemia Providers: Lukas Butterfield DO Medicines: Monitored Anesthesia Care Patient Profile: This is a 75 year old female. Refer to note in patient chart for documentation of history and physical. Patient has symptoms. Complications: No immediate 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s. Procedure: Pre-Anesthesia Assessment: - Prior to the procedure, a History and Physical was performed, and patient medications and allergies were reviewed. The patient is competent. The risks and benefits of the procedure and the sedation options and risks were discussed with the patient. All questions were answered and informed consent was obtained. Patient identification and proposed procedure were verified by the physician in the pre-procedure area. Mental Status Examination: alert and oriented. Airway Examination: normal oropharyngeal airway and neck mobility. Respiratory Examination: clear to auscultation. CV Examination: normal. Prophylactic Antibiotics: The patient does not require prophylactic antibiotics. Prior Anticoagulants: The patient has taken no anticoagulant or antiplatelet agents except for NSAID medication. ASA Grade Assessment: II - A patient with mild systemic disease. After reviewing the risks and benefits, the patient was deemed in satisfactory condition to undergo the procedure. The anesthesia plan was to use monitored anesthesia care (MAC). Immediately prior to administration of medications, the patient was re-assessed for adequacy to receive sedatives. The heart rate, respiratory rate, oxygen saturations, blood pressure, adequacy of pulmonary ventilation, and response to care were monitored throughout the procedure. The physical status of the patient was re-assessed after the procedure. After obtaining informed consent, the endoscope was passed under direct vision. Throughout the procedure, the patient's blood pressure, pulse, and oxygen saturations were monitored continuously. The Colonoscope was introduced through the mouth, and advanced to the third part of the duodenum. Small bowel enteroscopy was deemed necessary. The upper GI endoscopy was accomplished without difficulty. The patient tolerated the procedure well. Scope In: 5:20:47 PM Scope Out: 5:23:44 PM Total Procedure Duration Time 0 hours 2 minutes 57 seconds Findings: No gross lesions were noted in the entire esophagus. A hiatal hernia was present. No gross lesions were noted in the entire examined stomach. Nine semi-sessile polyps were found in the duodenal bulb. Biopsies were taken with a cold forceps for histology. Verification of patient identification for the specimen was done. Estimated blood loss was minimal. Impression: - No gross lesions in the entire esophagus. - Hiatal hernia. - No gross lesions in the entire stomach. - Duodenal polyposis. Biopsied. Recommendation: - Return patient to hospital [facility] for ongoing care. - Full liquid diet. - Continue present medications. - Await pathology results. Procedure Code(s): --- Professional --- 73218, Small intestinal endoscopy, enteroscopy beyond second portion of duodenum, not including ileum; with biopsy, single or multiple CPT copyright 2021 [employer]. All rights reserved. The codes documented in this report are preliminary and upon sugar trucker review may be revised to meet current compliance requirements. Lukas Butterfield DO 05/20/2025 5:46:06 PM This report has been signed electronically. Number of Addenda: 0 Note Initiated On: 05/20/2025 5:08 PM
--- NOTE | 2025-05-20 17:46 | OP.PROVAT_ITS ---
05/20/2025 Gill Velez Md Re : Upper GI endoscopy procedure for Angelica Toribio Dear Rosie This procedure was performed on Tuesday, May 20, 2025. My impressions and recommendations are as follows: Impressions : - No gross lesions in the entire esophagus. - Hiatal hernia. - No gross lesions in the entire stomach. - Duodenal polyposis. Biopsied. Recommendations : - Return patient to hospital [facility] for ongoing care. - Full liquid diet. - Continue present medications. - Await pathology results. My findings are described in the full procedure note, which is enclosed. If I can be of further assistance, please feel free to contact me at . Sincerely, Lukas Butterfield, 05/20/2025 5:46:06 PM This report has been signed electronically.
--- NOTE | 2025-05-20 17:48 | PCM.POST.ANE ---
Anesthesia: Postop Eval I Current Vital Signs Temperature: 97.1 F Pulse Rate: 93 Blood Pressure: 123/75 Respiratory Rate: 20 Pulse Ox: 97 Oxygen Delivery Method: Room Air Assessment Airway patent: Yes Spontaneous unlabored respirations: Yes Mental status: Awake and Calm nausea: No Vomiting: No Anesthesia Complication: No Fluid Hydration Crystalloid volume administer (ml): 300 Total IV fluid infused: 300 Progress Note Anesthesia document: Postop Eval 1 completed: Yes
--- NOTE | 2025-05-20 17:54 | OP.COLON_ITS ---
Patient Name: Angelica Toribio Procedure Date: 05/20/2025 5:23 PM Date of : 1950 Age: 75 Procedure: Colonoscopy Indications: This is the patient's first colonoscopy, Iron deficiency anemia Providers: Lukas Butterfield DO Medicines: Monitored Anesthesia Care Patient Profile: This is a 75 year old female. Refer to note in patient chart for documentation of history and physical. Patient has symptoms. Last Colonoscopy: none. The patient's first colonoscopy is today. Complications: No immediate 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s. Procedure: Pre-Anesthesia Assessment: - Prior to the procedure, a History and Physical was performed, and patient medications and allergies were reviewed. The patient is competent. The risks and benefits of the procedure and the sedation options and risks were discussed with the patient. All questions were answered and informed consent was obtained. Patient identification and proposed procedure were verified by the physician in the pre-procedure area. Mental Status Examination: alert and oriented. Airway Examination: normal oropharyngeal airway and neck mobility. Respiratory Examination: clear to auscultation. CV Examination: normal. Prophylactic Antibiotics: The patient does not require prophylactic antibiotics. Prior Anticoagulants: The patient has taken no anticoagulant or antiplatelet agents except for NSAID medication. ASA Grade Assessment: II - A patient with mild systemic disease. After reviewing the risks and benefits, the patient was deemed in satisfactory condition to undergo the procedure. The anesthesia plan was to use monitored anesthesia care (MAC). Immediately prior to administration of medications, the patient was re-assessed for adequacy to receive sedatives. The heart rate, respiratory rate, oxygen saturations, blood pressure, adequacy of pulmonary ventilation, and response to care were monitored throughout the procedure. The physical status of the patient was re-assessed after the procedure. After I obtained informed consent, the scope was passed under direct vision. Throughout the procedure, the patient's blood pressure, pulse, and oxygen saturations were monitored continuously. The Colonoscope was introduced through the anus and advanced to the cecum, identified by appendiceal orifice and ileocecal valve. The colonoscopy was performed without difficulty. The patient tolerated the procedure well. The quality of the bowel preparation was adequate. The ileocecal valve, appendiceal orifice, and rectum were photographed. Scope In: 5:26:45 PM Scope Out: 5:41:21 PM Total Procedure Duration Time 0 hours 14 minutes 36 seconds Findings: The perianal and digital rectal examinations were normal. A 5 mm polyp was found in the hepatic flexure. The polyp was sessile. The polyp was removed with a cold biopsy forceps. Resection and retrieval were complete. Verification of patient identification for the specimen was done. Estimated blood loss was minimal. An ulcerated non-obstructing large mass was found in the cecum. The mass was non-circumferential. The mass measured four cm in length. In addition, its diameter measured twenty-one mm. Oozing was present. This was biopsied with a cold forceps for histology. Area was tattooed with an injection of 1 mL of Johnna ink. Multiple small-mouthed diverticula were found in the recto-sigmoid colon, sigmoid colon and descending colon. Stool was found in the rectum, in the recto-sigmoid colon, in the sigmoid colon and in the descending colon. Impression: - One 5 mm polyp at the hepatic flexure, removed with a cold biopsy forceps. Resected and retrieved. 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 Biopsied. Tattooed. - Diverticulosis in the recto-sigmoid colon, in the sigmoid colon and in the descending colon. - Stool in the rectum, in the recto-sigmoid colon, in the sigmoid colon and in the descending colon. Recommendation: - Return patient to [facility] for ongoing care. - Resume previous diet. - Continue present medications. - Await pathology results. - Repeat colonoscopy in 1 year for surveillance. -Surgical consultation Procedure Code(s): --- Professional --- 66974, Colonoscopy, flexible; with biopsy, single or multiple 88792, Colonoscopy, flexible; with directed submucosal injection(s), any substance CPT copyright 2021 [employer]. All rights reserved. The codes documented in this report are preliminary and upon director of medical staff services review may be revised to meet current compliance requirements. Lukas Butterfield DO 05/20/2025 5:53:53 PM This report has been signed electronically. Number of Addenda: 0 Note Initiated On: 05/20/2025 5:23 PM
--- NOTE | 2025-05-20 17:54 | OP.PROVAT_ITS ---
05/20/2025 Gill Velez Md Re : Colonoscopy procedure for Angelica Toribio Dear Rosie This procedure was performed on Tuesday, May 20, 2025. My impressions and recommendations are as follows: Impressions : - One 5 mm polyp at the hepatic flexure, removed with a cold biopsy forceps. Resected and retrieved. 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 Biopsied. Tattooed. - Diverticulosis in the recto-sigmoid colon, in the sigmoid colon and in the descending colon. - Stool in the rectum, in the recto-sigmoid colon, in the sigmoid colon and in the descending colon. Recommendations : - Return patient to hospital [facility] for ongoing care. - Resume previous diet. - Continue present medications. - Await pathology results. - Repeat colonoscopy in 1 year for surveillance. -Surgical consultation My findings are described in the full procedure note, which is enclosed. If I can be of further assistance, please feel free to contact me at . Sincerely, Lukas Butterfield DO 05/20/2025 5:53:53 PM This report has been signed electronically.
--- NOTE | 2025-05-20 17:57 | POSTOPAN2_ITS ---
Anesthesia Postop Eval I Sum Postop Eval Completion status Anesthesia document: Postop Eval 1 completed: Yes Anesthesia Postop Eval I Summary Anesthesia Postop Eval I Summary: Anesthesia Postop Eval I: Assessment Summary Airway patent Yes 05/20/25 17:49 GLOBAL SECURITY [email or web address] Spontaneous unlabored Yes 05/20/25 17:49 GLOBAL SECURITY [email or web address] respirations Mental status Awake,Calm 05/20/25 17:49 GLOBAL SECURITY [email or web address] nausea No 05/20/25 17:49 GLOBAL SECURITY [email or web address] Vomiting No 05/20/25 17:49 GLOBAL SECURITY [email or web address] Anesthesia Postop Eval I: Fluid Summary Crystalloid volume administer 300 05/20/25 17:49 GLOBAL SECURITY [email or web address] (ml) Colloids volume administered ( ml) Blood Product volume administered (ml) Total IV fluid infused 300 05/20/25 17:49 GLOBAL SECURITY [email or web address] Anesthesia Postop Eval I: Summary Notes Anesthesia Complication No 05/20/25 17:49 GLOBAL SECURITY [email or web address] Anesthesia Complication Comment: Post-operative progress note Anesthesia: Postop Eval II Evaluation Mental status: Awake and Calm Pain Level: 0 nausea: No Vomiting: No Complications Anesthesia Complication: No
--- NOTE | 2025-05-20 17:57 | PCM.POSTANE2 ---
Anesthesia Postop Eval I Sum Postop Eval Completion status Anesthesia document: Postop Eval 1 completed: Yes Anesthesia Postop Eval I Summary Anesthesia Postop Eval I Summary: Anesthesia Postop Eval I: Assessment Summary Airway patent Yes 05/20/25 17:49 [email or web address] Spontaneous unlabored Yes 05/20/25 17:49 [email or web address] respirations Mental status Awake,Calm 05/20/25 17:49 [email or web address] nausea No 05/20/25 17:49 [email or web address] Vomiting No 05/20/25 17:49 [email or web address] Anesthesia Postop Eval I: Fluid Summary Crystalloid volume administer 300 05/20/25 17:49 [email or web address] (ml) Colloids volume administered ( ml) Blood Product volume administered (ml) Total IV fluid infused 300 05/20/25 17:49 [email or web address] Anesthesia Postop Eval I: Summary Notes Anesthesia Complication No 05/20/25 17:49 [email or web address] Anesthesia Complication Comment: Post-operative progress note Anesthesia: Postop Eval II Evaluation Mental status: Awake and Calm Pain Level: 0 nausea: No Vomiting: No Complications Anesthesia Complication: No
--- NOTE | 2025-05-20 20:12 | PCM.PN.HOSP ---
Reason for Visit Chief Complaint: Chest pain and shortness of breath after eating. No dysphagia Subjective Subjective Patient was seen and examined today, she underwent EGD and colonoscopy, EGD was unremarkable, colonoscopy showed a cecal tumor. 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 Patient's hemoglobin today was stable. Objective Data Objective Data Vital Signs: Vital Signs Temp Pulse Resp BP Pulse Ox O2 Del Method O2 Flow Rate 97.8 F 85 16 151/86 H 97 Room Air 2 05/20/25 18:47 05/20/25 18:57 05/20/25 18:47 05/20/25 18:47 05/20/25 18:47 05/20/25 18:47 05/20/25 15:57 Oxygen Flow Rate (L/min) 2 Oxygen Delivery Method Room Air Weight: 53 kg Body Mass Index (BMI) 22.8 Intake & Output: Intake and Output for Last 24 Hours 05/18/25 05/19/25 05/20/25 23:59 23:59 23:59 Intake Total 1410 / 1410 1320 / 1320 450.75 / 450.75 Output Total 1051 / 1051 Balance 1410 / 1410 269 / 269 450.75 / 450.75 Lab / Micro Data 05/20/25 06:41 05/19/25 07:43 Labs: Laboratory Results - last 24 hr 05/19/25 20:25: Hgb 9.0 L, Hct 29.3 L 05/19/25 22:35: POC Glucose 120 H 05/20/25 06:21: POC Glucose 100 05/20/25 06:41: WBC 4.2 L, RBC 4.41, Hgb 10.4 L, Hct 34.4 L, MCV 78.0 L, MCH 23.6 L, MCHC 30.2 L, RDW Std Deviation 48.8 H, RDW Coeff of Rojelio 17.3 H, Plt Count 227, MPV 11.5, Immature Gran % (Auto) 0.200, Neut % (Auto) 55.0, Lymph % (Auto) 28.3, [place] % (Auto) 10.0, Eos % (Auto) 4.8, Baso % (Auto) 1.7 H, Absolute Neuts (auto) 2.3, Absolute Lymphs (auto) 1.19, Nucleated RBC % 0, PT 14.9, INR 1.1, APTT 31.6, Triglycerides 100, Cholesterol 181, LDL Cholesterol, Calc 111, VLDL Cholesterol 20, HDL Cholesterol 52, Cholesterol/HDL Ratio 3.47, TSH 2.970 05/20/25 12:20: POC Glucose 99 Micro: Microbiology 05/19/25 01:05 Mucosa - Nasopharyngeal Coronavirus COVID-19 PCR - Final 05/19/25 01:05 Mucosa - Nasopharyngeal Respiratory Panel (PCR) - Final 05/19/25 02:00 Urine, Random Legionella Antigen - Final 05/19/25 02:00 Urine, Random Streptococcus pneumoniae Antigen (M - Final 05/18/25 18:57 Stool Stool Occult Blood (MAGDALENA) - Final Occult Blood Positive Physical Exam Narrative alert, oriented x2 and no apparent distress Constitutional Narrative: Patient exhibits some mild confusion General Appearance: cooperative, well kempt and well developed Orientation / Consciousness: awake, oriented to person, oriented to place and oriented to time HEENT normocephalic, head/scalp atraumatic and moist oral mucous membranes Eyes PERRL, EOMs intact bilaterally and conjunctivae normal Neck supple, no JVD, thyroid normal and no carotid bruits General: trachea midline Resp normal respiratory effort, no retractions, no use of accessory muscles and clear to auscultation bilaterally Auscultation: Negative for rales, rhonchi or wheezes Cardio regular rate, regular rhythm, S1 normal heart sound, S2 normal heart sound, no murmurs, no rub and no gallops GI normal to inspection, nondistended, normoactive bowel sounds, soft to palpation, non-tender and non-distended Extremity no clubbing, cyanosis or edema Skin no rashes or lesions noted General Skin Exam: no breakdown Neuro oriented x2, CN's II-XII intact bilaterally, no focal motor deficits and no sensory deficits noted Sensorium / Orientation: awake and alert Speech: speech normal, patient is oriented as to person and place, she exhibits mild confusion and repeats herself and repeats questions that have already been answered. Psych Psych Narrative: Patient exhibits mild confusion Assessment & Plan Assessment/Plan (1) Troponin level elevated: (2) Heart failure: (3) GI (gastrointestinal bleed): PLAN: Plan 1. 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 #2 type II VA-patient's EKG cannot be interpreted due to the fact she has a pacemaker, cardiology is participating in her care, due to the fact the patient had a neoplasm detected today in the cecum, there will be no cardiac catheterization carried out on the patient #3 mild cognitive impairment-this could be a result of early dementia, patient's memory is poor #4 essential hypertension-patient will remain on her current medications Total clinical time spent by myself addressing the patient's medical issues, reviewing all of her data, and collaborating with patient's care team: 35-minutes Charges/Coding Visit Charges Inpatient E&M: 86119 Subs Hosp L2
[2025-05-20] MEDS: 0.9% Saline Lock 10 ML Syringe IV (20:22)
[2025-05-21] VITALS (11 sets, daily range): BP systolic 132–172; BP diastolic 54–81; PULSE 74–82; RESP 15–18; TEMP 36.4–36.9; O2SAT 95–100; BMI 21.9
--- NOTE | 2025-05-21 08:02 | PCM.PN.CARD ---
Subjective Subjective LANA ARMSTRONG, is a 75 F with documented past medical history of diabetes mellitus type II, HTN, HLD, GERD, Carotid stenosis BL (unclear severity), status post PPM (unclear indication) who presented on 05/19/2025 to [facility] ED with complaints of chest pain, also in the setting of suspected GI bleed with significant anemia presentation. Cardiology following for troponin elevation. Patient underwent EGD C-scope , report noting a ulcerated nonobstructing large mass in the cecum, with oozing. It was noted in the impression that this is a malignant tumor in the cecum. Patient overall has remained chest pain-free and hemodynamically stable. Last hemoglobin: 10.4. Patient seen and examined at bedside today. She admits no acute complaints and feels her baseline. 14 point ROS reviewed and negative unless specified above. Objective Data Vital Signs: Vital Signs Temp Pulse Resp BP Pulse Ox O2 Del Method O2 Flow Rate 97.7 F L 74 18 149/70 H 96 Room Air 2 05/21/25 06:03 05/21/25 06:03 05/21/25 06:03 05/21/25 06:03 05/21/25 06:03 05/21/25 07:43 05/20/25 15:57 Oxygen Flow Rate (L/min) 2 Oxygen Delivery Method Room Air Weight: 112 lb 6.972 oz Body Mass Index (BMI) 21.9 Intake & Output: Intake and Output for Last 24 Hours 05/19/25 05/20/25 05/21/25 23:59 23:59 23:59 Intake Total 1320 / 1320 550.75 / 550.75 60 / 60 Output Total 1051 / 1051 Balance 269 / 269 550.75 / 550.75 60 / 60 Lab / Micro Data 05/20/25 06:41 05/19/25 07:43 Labs: Laboratory Results - last 24 hr 05/20/25 06:41: Triglycerides 100, Cholesterol 181, LDL Cholesterol, Calc 111, VLDL Cholesterol 20, HDL Cholesterol 52, Cholesterol/HDL Ratio 3.47 05/20/25 12:20: POC Glucose 99 05/20/25 20:14: POC Glucose 86 05/21/25 06:06: POC Glucose 86 Cardiology Labs/Tests 05/20/25 06:41: Triglycerides 100, Cholesterol 181, VLDL Cholesterol 20, HDL Cholesterol 52, Cholesterol/HDL Ratio 3.47 Rhythm: EKG: ECHO: Stress Test: Cardiac Cath: PCI: CT Surgery: Holter monitor: EPS: PPM: CXR: Chest CT Scan: Physical Exam Narrative ?Gen: A&Ox3, NAD ?HEENT: Normocephalic/Atraumatic, MMM ?Neck: Supple, no JVD ?Pulm: Normal work of breathing, CTA bilaterally with no wheezes or crackles ?CV: RRR, normal S1/S2, no m/r/g ?Abd: Soft, NT/ND ?Extr: Warm to touch, no LE edema, distal pulses intact and symmetric in upper and lower extremities ?Neuro: No gross focal deficits, normal speech ?Psych: Normal affect, answers questions appropriately Assessment & Plan Assessment/Plan (1) Troponin level elevated: (2) Heart failure: PLAN: Plan 1) Troponin level elevated: PLAN: - Patient with epigastric pain rating into chest, onset 4 months ago, with no anginal symptoms with exertion -Patient severely anemic with hemoglobin 5.5, FOBT (+) - HST: 45--> 44--> 756-->1521, EKG: Atrial sensed, ventricular paced rhythm with no change from baseline and no specific ischemic changes - Patient developed increasing oxygen requirements with volume overload during PRBC infusion, necessitating escalation to 6 L nasal cannula and IV diuretics, per nursing, patient was hypoxemic for multiple hours during infusion. - Patient currently chest pain-free, asymptomatic with heart rates 70s to 80s, BP: 120/70 - C-scope 05/20/2025 shows large cecal mass, oozing, consistent with malignancy - Suspect type 2 SD/Acute myocardial injury Patient experienced chest pain at roughly 4:30 PM, with flat troponin elevation at 5:50 PM and 8 PM (45&44). Troponin kinetics in the setting of ACS/chest pain would be expected to have significantly risen within 3 hours of chest pain episode. Etiology is likely secondary to transfusion volume overload causing supply/demand mismatch in the setting of severe anemia, superimposed on suspected preexisting stable ischemic cardiomyopathy/heart failure reduced ejection fraction. Furthermore, CTA chest showed pulmonary edema (completed at first troponin draw) which would be consistent with pre-existing heart failure. Troponins drawn hours after infusion where IV diuretics and escalating oxygen requirements were needed showed significant rise. Chest pain is possibly cardiac, but predominantly patient cites epigastric pain. A late troponin elevation of this magnitude, would be rare stemming from a type I event from the index chest pain, and troponin is likely elevated in the setting of type 2 mechanisms above. However, type I SD still remains in the differential but is less likely. 2) Suspect ischemic cardiomyopathy/heart failure with reduced ejection fraction, AHA stage C, NYHA class ~II -Echocardiogram on 05/19/2025: Left ventricular EF: 35 to 40% with apical hypokinesis - No formal ischemic assessment at this time, no recent previous echocardiogram available Recommendations - Will forego invasive angiography/consideration of revascularization in the setting of newly diagnosed GI malignancy/and ongoing GI bleeding, which would be would be be a contraindication to dual antiplatelet therapy - Any revascularization undertaken at this time would delay any possible optimal cancer resection, and patient is likely a type II/acute myocardial injury presentation - Goal blood pressures less than 130/80 at this time, continue metoprolol succinate 25 mg daily, and losartan 25 mg daily, uptitrate as tolerated - Continue atorvastatin 40 mg daily, consideration of aspirin per GI and PCP team - Involvement of surgical oncology and respective teams as indicated, and correlation of lung nodule findings with newly discovered malignancy - Patient will likely need multidisciplinary team evaluation prior to surgical resection - Patient can follow-up with cardiology outpatient in 2 to 3 weeks after discharge for optimization of GDMT.
[2025-05-21] MEDS: Metoprolol(XL)Succ 25 MG Tablet PO (09:23)
[2025-05-21] MEDS: Pantoprazole Sodium 40 MG in 0.9% Normal Saline (100mL MB+) 100 ML 300 MG IV (09:25)
[2025-05-21] MEDS: Azithromycin 500 MG in 0.9% Normal Saline (250mL Bag) 250 ML 250 MG IV (11:27)
--- NOTE | 2025-05-21 12:33 | NURSING ---
This RN entered room to obtain vital signs and blood sugar. Patient asked did the doctor say this ways okay? Attempted to explain plan of care and orders to patient and significant other. Patient upset with this RN, stating everyone here is mad at her. This RN asked patient to explain further and patient states Im not talking to anyone. Attempted to explain to patient we all were trying to help her, patient allowed care but refused to participate in conversation. Asked patient if there was anything we could do better for her care and patient continued to say Im not talking to you.
--- NOTE | 2025-05-21 18:10 | PN_ITS ---
Progress Note Patient is a 75-year-old female admitted with severe anemia secondary to chronic gastrointestinal (GI) blood loss, resulting in demand ischemia (Type 2 Myocardial Infarction). The etiology of the GI bleed was identified yesterday via colonoscopy as a cecal mass. Patient reported initial chest pain described as sharp, pleuritic quality, and post-prandial, which has since resolved. She has not reported any signs of bleeding today. Physical Exam Const alert, oriented x3, no apparent distress and healthy appearing General Appearance: cooperative GI normal to inspection, nondistended, normoactive bowel sounds, soft to palpation, non-tender and non-distended Percussion: normal to percussion Rectal Exam: deferred Assessment & Plan Assessment/Plan (1) Heart failure: (2) Troponin level elevated: (3) GI (gastrointestinal bleed): PLAN: Assessment 75-year-old female with: * Severe Anemia (resolved/stable):?Etiology identified as a cecal mass. No active bleeding noted today. * Type 2 Myocardial Infarction:?Due to myocardial oxygen supply/demand mismatch secondary to severe anemia. Initial pain resolved; troponin leak is stabilizing. Cardiology consulted, consensus reached for medical management. * New Onset HFrEF (LVEF 35-40%):?Likely underlying chronic dysfunction unmasked by the stressor of anemia/transfusion. Plan * Anemia/GI:?Continue close monitoring for signs of re-bleeding (stools, vital signs, serial Hgb). Oncology consultation pending regarding management of cecal mass. * Cardiology/Type 2 [place]:?Continue medical management per cardiology recommendations (likely antiplatelets, statin, close monitoring). Patient is currently pain-free. * Heart Failure:?As per cardiology Guideline-Directed Medical Therapy (GDMT) for HFrEF (e.g., CATINA inhibitor/ARB, Beta-julian, likely diuretic for volume management). Strict input/output monitoring. Cardiology will following daily. Portions of this note were generated using voice recognition software ([email or web address] Dictation). I have reviewed the contents and every effort has been made to ensure accuracy; however, inadvertent errors in grammar, spelling, punctuation, or word choice may occur, that were not noted before signing the document and should not alter the intended clinical meaning. Visit Charges Inpatient E&M: 21364 Subs Hosp L3
--- NOTE | 2025-05-21 18:51 | DS.PCM_ITS ---
Providers Date of Admission: 05/18/25 Date of Discharge: 05/21/25 Primary Care Physician: Dr. Gill Velez MD Consultations 05/19/25 00:50 Consult: Gastroenterology Routine Consulting Provider: [facility] Reason for Consult: GI bleed EMERGENT Consult: No Notified: Yes Date Notified: 05/19/25 Time Notified: 00:29 Method of Notification: ED Physician Initiated 05/19/25 06:33 Consult: Cardiology Routine Consulting Provider: Bryant Pereyra Reason for Consult: possible NSTEMI EMERGENT Consult: No Notified: Yes Date Notified: 05/19/25 Time Notified: 06:34 Method of Notification: Text Reason For Visit: CP, SOB, ANEMIA Diagnosis Discharge Diagnosis (1) Heart failure: Status: Acute Code(s): I50.9 - Heart failure, unspecified (2) Troponin level elevated: Status: Acute Code(s): R79.89 - Other specified abnormal findings of blood chemistry (3) GI (gastrointestinal bleed): Status: Acute Code(s): K92.2 - Gastrointestinal hemorrhage, unspecified Plan 1. Anemia requiring blood transfusion-secondary to malignant neoplasm of the cecum #2 type II UT-patient's EKG cannot be interpreted due to the fact she has a pacemaker, cardiology is participating in her care, she may need further workup regarding her MRI. 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 Patient complained that she had had frequent episodes of chest pain for the last month after eating at home. This pain was not relieved with drinking water. Workup in the emergency room included labs which found the patient to be anemic with a hemoglobin of 5.5, stool was positive for occult blood, chest CTA showed patchy multifocal parenchymal airspace opacities with innumerable solid nodules bilaterally measuring up to 9 mm in the right upper lobe. Troponins were 45. Patient was admitted to PCU, 2nd and 3rd troponins were highly elevated, patient was seen in consultation by cardiology and an echocardiogram was obtained and the patient was transfused packed red blood cells. Echocardiogram showed an ejection fraction of 35 to 40%, patient saw gastroenterology and underwent an EGD and a colonoscopy, colonoscopy showed a cecal malignancy. Care was discussed with cardiology and it was felt that the best course would be to transfer the patient to a tertiary center for further care. On 05/21/2025, patient was seen and examined:alert, oriented x2 and no apparent distress Constitutional Narrative: Patient exhibits some mild confusion General Appearance: cooperative, well kempt and well developed Orientation / Consciousness: awake, oriented to person, oriented to place and oriented to time HEENT normocephalic, head/scalp atraumatic and moist oral mucous membranes Eyes PERRL, EOMs intact bilaterally and conjunctivae normal Neck supple, no JVD, thyroid normal and no carotid bruits General: trachea midline Resp normal respiratory effort, no retractions, no use of accessory muscles and clear to auscultation bilaterally Auscultation: Negative for rales, rhonchi or wheezes Cardio regular rate, regular rhythm, S1 normal heart sound, S2 normal heart sound, no murmurs, no rub and no gallops GI normal to inspection, nondistended, normoactive bowel sounds, soft to palpation, non-tender and non-distended Extremity no clubbing, cyanosis or edema Skin no rashes or lesions noted General Skin Exam: no breakdown Neuro oriented x2, CN's II-XII intact bilaterally, no focal motor deficits and no sensory deficits noted Sensorium / Orientation: awake and alert Speech: speech normal, patient is oriented as to person and place, she exhibits mild confusion and repeats herself and repeats questions that have already been answered. Psych Psych Narrative: Patient exhibits mild confusion Patient was transferred to [facility] in stable condition on 05/21/2025 Weight / BMI Weight Weight: 51 kg Body Mass Index (BMI) 21.9 ABG / Lab / Microbiology Data 05/20/25 06:41 05/19/25 07:43 Laboratory: Laboratory Results - last 24 hr 05/20/25 20:14: POC Glucose 86 05/21/25 06:06: POC Glucose 86 05/21/25 12:19: POC Glucose 125 H Microbiology: Microbiology 05/19/25 01:05 Mucosa - Nasopharyngeal Coronavirus COVID-19 PCR - Final 05/19/25 01:05 Mucosa - Nasopharyngeal Respiratory Panel (PCR) - Final 05/19/25 02:00 Urine, Random Legionella Antigen - Final 05/19/25 02:00 Urine, Random Streptococcus pneumoniae Antigen (M - Final 05/18/25 18:57 Stool Stool Occult Blood (MAGDAL[facility]) - Final Occult Blood Positive D/C Instructions DC O2, CPAP, BIPAP Needs Home O2 Discharge instructions: No Meaningful Use Info Meaningful Use Meaningful Use Diagnoses (Choose all that apply): None applicable Discharge Plan Admission Admit Date/Time: 05/18/25 23:37 Attending Provider: Mateo Crabtree Primary Care Provider: Gill Velez Consulting Providers: Elpidio Pace; Lukas Butterfield; Alisha Wright; Evelin Gamboa; Blanca Moss; Bryant Pereyra Discharge Orders/Prescriptions Prescriptions: No Action hydralazine 25 mg tablet 25 mg PO TID Qty: 270 1RF Referrals / Follow Up: Gill Velez MD [Primary Care Provider, Internal Medicine] Disposition Disposition (needs filled in before D/C Order can be placed): Acute Care Hospital Charges/Coding Visit Charges Inpatient E&M: [id number] Disch Hosp >30min
[2025-05-21] MEDS: 0.9% Saline Lock 10 ML Syringe IV (20:49)
--- NOTE | 2025-05-21 21:30 | NURSING ---
Called [facility] for transport time update states it will be about another 90 minutes
[2025-05-21] MEDS: hydrOXYzine PAM 25 MG Capsule PO (23:47)
[2025-05-22 01:20] VITALS: BP 127/52; PULSE 74; RESP 16; TEMP 36.6; O2SAT 99
--- NOTE | 2025-05-22 02:23 | NURSING ---
[facility] transport arrived for patient. Update given by Christie WHITNEY. Pt left at this time with belongings and home medication.
== END 2025-05-22 02:28 | disposition short-term general hospital (02) | DRG 374 ==
LOC: ED 23:20 → PCU 23:41
PROVIDERS: Anesthesiology; Internal Medicine Gastroenterology; Admitting Provider Internal Medicine; Emergency Provider Surgery; PCP Internal Medicine; Visit Provider Internal Medicine
PROC: 0DJD8ZZ Inspection of Lower Intestinal Tract, Via Natural or Artificial Opening Endoscopic (ICD-10-PCS; CPT 45378; principal; 2025-05-20 16:10)
DX: C18.0 Malignant neoplasm of cecum (principal); I21.A1 Myocardial infarction type 2; I42.9 Cardiomyopathy, unspecified; I13.0 Hypertensive heart and chronic kidney disease with heart failure and stage 1 through stage 4 chronic kidney disease, or unspecified chronic kidney disease; E11.22 Type 2 diabetes mellitus with diabetic chronic kidney disease; D50.0 Iron deficiency anemia secondary to blood loss (chronic); D12.3 Benign neoplasm of transverse colon; I50.9 Heart failure, unspecified; N18.32 Chronic kidney disease, stage 3b; I65.23 Occlusion and stenosis of bilateral carotid arteries; K21.9 Gastro-esophageal reflux disease without esophagitis; K57.30 Diverticulosis of large intestine without perforation or abscess without bleeding; K44.9 Diaphragmatic hernia without obstruction or gangrene; Z79.899 Other long term (current) drug therapy; Z95.0 Presence of cardiac pacemaker
CPT/HCPCS: 36415; 71046; 71275; 74177; 80048; 80053; 80061; 82274; 82962; 83690; 83735; 83880; 84443; 84484; 85014; 85018; 85025; 85379; 85610; 85730; 86850; 86900; 86901; 87449; 87633; 87635; 88305; 88341; 88342; 93005; 93306; 97161; 99285; P9016; Q9957; Q9967; A4216; A4648; C8929